=== PATIENT | male | born 1965 | race Caucasian/White ===

== ENCOUNTER 2016-04-12 12:30 | Emergency (ER) | payer MEDICARE ==
[~2016-04-12 12:30] MED LIST: /ESCI10TA PEG; ACET50TA PO; ALEV220C2 PO; AMLO5TAB2 PO; BACT2OIN EX; CEFA500C PO; CIAL2.5T PO; CLON0.5T17 PO; DEXI60CA PO; DOXY-197 PO; ERYT TOP; ESCI10TA2 PO; ESCI20TA PO; FERR325T3 PO; FLUT50SP; GABA100C PO; GABA300C2 PO; HYDROCHLOROT PO; IRONTAB3 PO; LISI40TAB PO; METF500T PO; MINO100T PO; MINO1CAP PO; MORP-38 PO; MORP-39 PO; NEXI20CA PO; OXYC5TAB2 PO; PERCOCET PO; SOMA350T PO; TYLE167L PO; VITA100037 PO; VITA200028 PO; VITACAP31 PO; VITAMIND; ZANA4CAP PO; ZOLP-187 PO; [UNRECOGNIZED DRUG - CODE] EX; [UNRECOGNIZED DRUG - CODE] IM; [UNRECOGNIZED DRUG - CODE] PO; clindamycin PO; lisinopril/hctz PO; ocean spray
--- NOTE | 2016-04-12 13:42 | EDDOCDS ---
Nurse's Notes [facility] Name: Tyler Burnett Age: 50 yrs Sex: Male : 1965 Arrival Date: 04/12/2016 Time: 12:30 Bed TR8 Private MD: Lars Flores Diagnosis: Low back pain Presentation: 04/12 12:33 Presenting complaint: Patient states: low back pain for many years. reports needs meds kr3 that pain clinic no longer gives because of state ruling. Acute neurological deficits are not present. Mechanism of Injury: No Mechanism of Injury. Adult Sepsis Screening: The patient does not have new or worsening altered mentation. Patient's respiratory rate is less than 22. Systolic blood pressure is greater than 100. Patient has a qSOFA score of 0- Negative Sepsis Screen. Suicide/Homicide risk assessment- the patient denies having any suicidal and/or homicidal ideations and does not present with any other emotional, behavioral or mental health complaints. Status: Patient is not a neighborhood service center director or dependent. Transition of care: patient was not received from another setting of care. 12:33 Acuity: ALICIA Level 4 kr3 12:33 Method Of Arrival: Walkin/Carried/Asstd kr3 Triage Assessment: 12:38 General: Appears in no apparent distress, comfortable, Behavior is appropriate for age, kr3 cooperative. Pain: Location: low back area Pain currently is 7 out of 10 on a pain scale. HIV screening NA for this visit Offered previously. Neurological: No deficits noted. Respiratory: Respiratory effort is even, unlabored. Derm: Skin is normal. Musculoskeletal: Range of motion intact in all extremities. Historical: - Allergies: PENICILLINS; - Home Meds: 1. escitalopram oxalate 20 mg oral tab 1 tab once daily 2. amlodipine 5 mg Oral tab 1 tab once daily 3. lisinopril-hydrochlorothiazide 20-25 mg oral tab once daily 4. Nexium Oral 2 times per day 5. iron supplement daily 6. testosterone cypionate intramuscular 2000mg intramuscular every 10 days - PMHx: Chronic Back pain; Hypertension; Humphrey's Esophagus; - PSHx: Carpal Tunnel Repair- Bilateral; septoplasty; - Social history: Smoking status: Patient states was never smoker of tobacco. No barriers to communication noted, The patient speaks fluent Mongolian, Speaks appropriately for age. - Family history: Not pertinent. - : The pt / caregiver states he / she is not on anticoagulants. Home medication list is obtained from the patient. - Exposure Risk Screening:: None identified. Screenin:30 Screening information is obtained from the patient. Fall risk: No risks identified. js13 Assistance ADL's: requires no assistance with activities of daily living. Abuse/DV Screen: The patient / caregiver reports he/she is: not in a situation that causes fear, pain or injury. Nutritional screening: No deficits noted. Advance Directives: There is no active DNR order. home support is adequate. Assessment: 13:40 General: Appears in no apparent distress, Behavior is appropriate for age, cooperative. ml6 Pain: Denies pain. Pain: Location: low back area Pain currently is 5 out of 10 on a pain scale. Pain does not radiate. Quality of pain is described as aching, Pain began 2-3 days ago Is continuous Alleviated by nothing. Aggravated by increased activity. Neurological: Level of Consciousness is awake, alert, Oriented to person, place, time. Neurological: No deficits noted. Level of Consciousness is awake, alert, Oriented to person, place, time. Cardiovascular: No deficits noted. Respiratory: No deficits noted. GI: No deficits noted. Vital Signs: 12:32 BP 178 / 96; Pulse 88; Resp 16; Temp 98.2; Pulse Ox 100% ; Weight 104.33 kg; Height 5 elp ft. 9 in. (175.26 cm); Pain 7/10; 13:41 BP 166 / 87; Pulse 82; Resp 18; Pulse Ox 98% on R/A; Pain 4/10; ml6 12:32 Body Mass Index 33.96 (104.33 kg, 175.26 cm) [facility] Vitals: 12:32 Log In Time: April 12, 2016 at 12:30. [facility] ED Course: 12:31 Patient visited by Yany Seay PCA. elp 12:31 Patient moved to Waiting elp 12:32 Lars Flores MD is Private Physician. elp 12:32 Patient visited by Yany Seay PCA. elp 12:32 Patient moved to Pre RCE elp 12:34 Triage Initiated kr3 13:02 Patient moved to Triage 3 js13 13:09 Marlon Torres [facility]. btw 13:10 Italia Choi MD is Attending Physician. btw 13:10 Patient visited by Marlon Torres PA. btw 13:30 The patient / caregiver is instructed regarding the plan of care and ED course. js13 13:30 No IV's were initiated during this patient's visit. No procedures done that require js13 assistance. 13:31 Lars Flores MD is Referral Physician. btw 13:39 Patient moved to [place] [id number] 13:40 [facility] Payment Agreement was scanned into [employer] and attached to record. mpb Order Results: There are currently no results for this order. Outcome: 13:31 Discharge ordered by Provider. btw 13:41 Discharge Assessment: patient administered narcotics - no. The following High Risk 6 Discharge criteria are identified: None. Discharged to home ambulatory. Condition: stable. Discharge instructions given to patient, Instructed on discharge instructions, follow up and referral plans. medication usage, Demonstrated understanding of instructions, medications, Pt was receptive of discharge instructions/ teaching. Prescriptions given X 2. No special radiology studies were completed. Property sent home with patient. :Personal belongings accompany Pt. 13:41 Patient left the ED. ml6 Signatures: Felicia Alicia,RN RN kr3 Angelo Serna RN RN ml6 Marlon Torres PA PA btw Di Lopez,RN RN js13 Yany Seay, MACHINE FILLER SHREDDER MACHINE FILLER SHREDDER Michael Hammond, Reg Reg mpb MTDD
--- NOTE | 2016-04-12 13:42 | EDDOCDS ---
Physician Documentation [facility] Name: Tyler Burnett Age: 50 yrs Sex: Male : 1965 Arrival Date: 04/12/2016 Time: 12:30 Bed TR8 Private MD: Lars Flores Disposition: 04/12/16 13:31 Discharged to Home/Self Care. Impression: Low back pain. - Condition is Stable. - Discharge Instructions: Chronic Back Pain, Back Pain, Adult, [id number]. - Prescriptions for Medrol (Simon) 4 mg Oral Tablets, Dose Pack - take 1 Pack by ORAL route as directed - follow package instructions; 1 packet. Robaxin- 750 750 mg Oral Tablet - take 1 tablet by ORAL route every 6 hours As needed; 40 tablet. - Medication Reconciliation, Local Pharmacy Hours form. - Follow up: Lars Flores MD; When: Call to arrange an appointment; Reason: Further diagnostic work-up, Recheck today's complaints, Continuance of care. - Problem is an acute exacerbation. - Symptoms are unchanged. Historical: - Allergies: PENICILLINS; - Home Meds: 1. escitalopram oxalate 20 mg oral tab 1 tab once daily 2. amlodipine 5 mg Oral tab 1 tab once daily 3. lisinopril-hydrochlorothiazide 20-25 mg oral tab once daily 4. Nexium Oral 2 times per day 5. iron supplement daily 6. testosterone cypionate intramuscular 2000mg intramuscular every 10 days - PMHx: Chronic Back pain; Hypertension; Humphrey's Esophagus; - PSHx: Carpal Tunnel Repair- Bilateral; septoplasty; - Social history: Smoking status: Patient states was never smoker of tobacco. No barriers to communication noted, The patient speaks fluent Albanian, Speaks appropriately for age. - Family history: Not pertinent. - : The pt / caregiver states he / she is not on anticoagulants. Home medication list is obtained from the patient. - Exposure Risk Screening:: None identified. Vital Signs: 04/12 12:32 BP 178 / 96; Pulse 88; Resp 16; Temp 98.2; Pulse Ox 100% ; Weight 104.33 kg / 230.01 elp lbs; Height 5 ft. 9 in. (175.26 cm); Pain 7/10; 13:41 BP 166 / 87; Pulse 82; Resp 18; Pulse Ox 98% on R/A; Pain 4/10; ml6 12:32 Body Mass Index 33.96 (104.33 kg, 175.26 cm) elp MDM: 13:40 Financial registration complete. mpb 13:40 [facility] Payment Agreement was scanned into [employer] and attached to record. mpb Signatures: Felicia Alicia,RN RN kr3 Angelo Serna RN RN ml6 Marlon Torres PA PA btw Sullivan, JenniferRN RN js13 Michael Thomas, Hilton Reg mpb The chart was reviewed and I authenticate all verbal orders and agree with the evaluation and treatment provided.Attachments: 13:40 [facility] Payment Agreement mpb MTDD
--- NOTE | 2016-04-14 14:43 | EDDOCDS ---
Physician Documentation [facility] Name: Tyler Burnett Age: 50 yrs Sex: Male : 1965 Arrival Date: 04/12/2016 Time: 12:30 Bed TR8 Private MD: Lars Flores Disposition: 04/12/16 13:31 Discharged to Home/Self Care. Impression: Low back pain. - Condition is Stable. - Discharge Instructions: Chronic Back Pain, Back Pain, Adult, [id number]. - Prescriptions for Medrol (Simon) 4 mg Oral Tablets, Dose Pack - take 1 Pack by ORAL route as directed - follow package instructions; 1 packet. Robaxin- 750 750 mg Oral Tablet - take 1 tablet by ORAL route every 6 hours As needed; 40 tablet. - Medication Reconciliation, Local Pharmacy Hours form. - Follow up: Lars Flores MD; When: Call to arrange an appointment; Reason: Further diagnostic work-up, Recheck today's complaints, Continuance of care. - Problem is an acute exacerbation. - Symptoms are unchanged. Historical: - Allergies: PENICILLINS; - Home Meds: 1. escitalopram oxalate 20 mg oral tab 1 tab once daily 2. amlodipine 5 mg Oral tab 1 tab once daily 3. lisinopril-hydrochlorothiazide 20-25 mg oral tab once daily 4. Nexium Oral 2 times per day 5. iron supplement daily 6. testosterone cypionate intramuscular 2000mg intramuscular every 10 days - PMHx: Chronic Back pain; Hypertension; Humphrey's Esophagus; - PSHx: Carpal Tunnel Repair- Bilateral; septoplasty; - Social history: Smoking status: Patient states was never smoker of tobacco. No barriers to communication noted, The patient speaks fluent Mongolian, Speaks appropriately for age. - Family history: Not pertinent. - : The pt / caregiver states he / she is not on anticoagulants. Home medication list is obtained from the patient. - Exposure Risk Screening:: None identified. Vital Signs: 04/12 12:32 BP 178 / 96; Pulse 88; Resp 16; Temp 98.2; Pulse Ox 100% ; Weight 104.33 kg / 230.01 elp lbs; Height 5 ft. 9 in. (175.26 cm); Pain 7/10; 13:41 BP 166 / 87; Pulse 82; Resp 18; Pulse Ox 98% on R/A; Pain 4/10; ml6 12:32 Body Mass Index 33.96 (104.33 kg, 175.26 cm) elp MDM: 13:40 Financial registration complete. mpb 13:40 [facility] Payment Agreement was scanned into [employer] and attached to record. mpb 21:14 T-Sheet-- Draft Copy was scanned into [employer] and attached to record. klr Signatures: Felicia Alicia,RN RN kr3 Angelo Serna RN RN ml6 Marlon Torres PA PA suryaw Di Lopez,RN RN js13 Michael Thomas, Reg Reg mpb Sapphire Woody klr The chart was reviewed and I authenticate all verbal orders and agree with the evaluation and treatment provided.Attachments: 13:40 [facility] Payment Agreement mpb 21:14 T-Sheet-- Draft Copy klr Chart Complete MTDD
--- NOTE | 2016-04-14 14:43 | EDDOCDS ---
Nurse's Notes [facility] Name: Tyler Burnett Age: 50 yrs Sex: Male : 1965 Arrival Date: 04/12/2016 Time: 12:30 Bed TR8 Private MD: Lars Flores Diagnosis: Low back pain Presentation: 04/12 12:33 Presenting complaint: Patient states: low back pain for many years. reports needs meds kr3 that pain clinic no longer gives because of state ruling. Acute neurological deficits are not present. Mechanism of Injury: No Mechanism of Injury. Adult Sepsis Screening: The patient does not have new or worsening altered mentation. Patient's respiratory rate is less than 22. Systolic blood pressure is greater than 100. Patient has a qSOFA score of 0- Negative Sepsis Screen. Suicide/Homicide risk assessment- the patient denies having any suicidal and/or homicidal ideations and does not present with any other emotional, behavioral or mental health complaints. Status: Patient is not a clerk telegraph service or dependent. Transition of care: patient was not received from another setting of care. 12:33 Acuity: ALICIA Level 4 kr3 12:33 Method Of Arrival: Walkin/Carried/Asstd kr3 Triage Assessment: 12:38 General: Appears in no apparent distress, comfortable, Behavior is appropriate for age, kr3 cooperative. Pain: Location: low back area Pain currently is 7 out of 10 on a pain scale. HIV screening NA for this visit Offered previously. Neurological: No deficits noted. Respiratory: Respiratory effort is even, unlabored. Derm: Skin is normal. Musculoskeletal: Range of motion intact in all extremities. Historical: - Allergies: PENICILLINS; - Home Meds: 1. escitalopram oxalate 20 mg oral tab 1 tab once daily 2. amlodipine 5 mg Oral tab 1 tab once daily 3. lisinopril-hydrochlorothiazide 20-25 mg oral tab once daily 4. Nexium Oral 2 times per day 5. iron supplement daily 6. testosterone cypionate intramuscular 2000mg intramuscular every 10 days - PMHx: Chronic Back pain; Hypertension; Humphrey's Esophagus; - PSHx: Carpal Tunnel Repair- Bilateral; septoplasty; - Social history: Smoking status: Patient states was never smoker of tobacco. No barriers to communication noted, The patient speaks fluent Khmer, Speaks appropriately for age. - Family history: Not pertinent. - : The pt / caregiver states he / she is not on anticoagulants. Home medication list is obtained from the patient. - Exposure Risk Screening:: None identified. Screenin:30 Screening information is obtained from the patient. Fall risk: No risks identified. js13 Assistance ADL's: requires no assistance with activities of daily living. Abuse/DV Screen: The patient / caregiver reports he/she is: not in a situation that causes fear, pain or injury. Nutritional screening: No deficits noted. Advance Directives: There is no active DNR order. home support is adequate. Assessment: 13:40 General: Appears in no apparent distress, Behavior is appropriate for age, cooperative. ml6 Pain: Denies pain. Pain: Location: low back area Pain currently is 5 out of 10 on a pain scale. Pain does not radiate. Quality of pain is described as aching, Pain began 2-3 days ago Is continuous Alleviated by nothing. Aggravated by increased activity. Neurological: Level of Consciousness is awake, alert, Oriented to person, place, time. Neurological: No deficits noted. Level of Consciousness is awake, alert, Oriented to person, place, time. Cardiovascular: No deficits noted. Respiratory: No deficits noted. GI: No deficits noted. Vital Signs: 12:32 BP 178 / 96; Pulse 88; Resp 16; Temp 98.2; Pulse Ox 100% ; Weight 104.33 kg; Height 5 elp ft. 9 in. (175.26 cm); Pain 7/10; 13:41 BP 166 / 87; Pulse 82; Resp 18; Pulse Ox 98% on R/A; Pain 4/10; ml6 12:32 Body Mass Index 33.96 (104.33 kg, 175.26 cm) [facility] Vitals: 12:32 Log In Time: April 12, 2016 at 12:30. [facility] ED Course: 12:31 Patient visited by Yany Seay PCA. elp 12:31 Patient moved to Waiting elp 12:32 Lars Flores MD is Private Physician. elp 12:32 Patient visited by Yany Seay PCA. elp 12:32 Patient moved to Pre RCE elp 12:34 Triage Initiated kr3 13:02 Patient moved to Triage 3 js13 13:09 [facility]. btw 13:10 Italia Choi MD is Attending Physician. btw 13:10 Patient visited by Marlon Torres PA. btw 13:30 The patient / caregiver is instructed regarding the plan of care and ED course. js13 13:30 No IV's were initiated during this patient's visit. No procedures done that require js13 assistance. 13:31 Lars Flores MD is Referral Physician. btw 13:39 Patient moved to [place] [id number] 13:40 [facility] Payment Agreement was scanned into [employer] and attached to record. mpb 21:14 T-Sheet-- Draft Copy was scanned into [employer] and attached to record. klr Order Results: There are currently no results for this order. Outcome: 13:31 Discharge ordered by Provider. btw 13:41 Discharge Assessment: patient administered narcotics - no. The following High Risk 6 Discharge criteria are identified: None. Discharged to home ambulatory. Condition: stable. Discharge instructions given to patient, Instructed on discharge instructions, follow up and referral plans. medication usage, Demonstrated understanding of instructions, medications, Pt was receptive of discharge instructions/ teaching. Prescriptions given X 2. No special radiology studies were completed. Property sent home with patient. :Personal belongings accompany Pt. 13:41 Patient left the ED. ml6 Signatures: Felicia Alicia,RN RN johnna3 Angelo Serna, RN RN ml6 Marlon Torres PA PA btDi Montoya,RN RN js13 Yany Seay, INTELLIGENT SYSTEMS ENGINEER INTELLIGENT SYSTEMS ENGINEER elp Michael Thomas, Reg Reg mpSapphire Varela klr Chart Complete MTDD
--- NOTE | 2016-04-14 14:43 | EDDOCDS ---
Physician Documentation [facility] Name: Tyler Burnett Age: 50 yrs Sex: Male : 1965 Arrival Date: 04/12/2016 Time: 12:30 Bed TR8 Private MD: Lars Flores Disposition: 04/12/16 13:31 Discharged to Home/Self Care. Impression: Low back pain. - Condition is Stable. - Discharge Instructions: Chronic Back Pain, Back Pain, Adult, [id number]. - Prescriptions for Medrol (Simon) 4 mg Oral Tablets, Dose Pack - take 1 Pack by ORAL route as directed - follow package instructions; 1 packet. Robaxin- 750 750 mg Oral Tablet - take 1 tablet by ORAL route every 6 hours As needed; 40 tablet. - Medication Reconciliation, Local Pharmacy Hours form. - Follow up: Lars Flores MD; When: Call to arrange an appointment; Reason: Further diagnostic work-up, Recheck today's complaints, Continuance of care. - Problem is an acute exacerbation. - Symptoms are unchanged. Historical: - Allergies: PENICILLINS; - Home Meds: 1. escitalopram oxalate 20 mg oral tab 1 tab once daily 2. amlodipine 5 mg Oral tab 1 tab once daily 3. lisinopril-hydrochlorothiazide 20-25 mg oral tab once daily 4. Nexium Oral 2 times per day 5. iron supplement daily 6. testosterone cypionate intramuscular 2000mg intramuscular every 10 days - PMHx: Chronic Back pain; Hypertension; Humphrey's Esophagus; - PSHx: Carpal Tunnel Repair- Bilateral; septoplasty; - Social history: Smoking status: Patient states was never smoker of tobacco. No barriers to communication noted, The patient speaks fluent Korean, Speaks appropriately for age. - Family history: Not pertinent. - : The pt / caregiver states he / she is not on anticoagulants. Home medication list is obtained from the patient. - Exposure Risk Screening:: None identified. Vital Signs: 04/12 12:32 BP 178 / 96; Pulse 88; Resp 16; Temp 98.2; Pulse Ox 100% ; Weight 104.33 kg / 230.01 elp lbs; Height 5 ft. 9 in. (175.26 cm); Pain 7/10; 13:41 BP 166 / 87; Pulse 82; Resp 18; Pulse Ox 98% on R/A; Pain 4/10; ml6 12:32 Body Mass Index 33.96 (104.33 kg, 175.26 cm) elp MDM: 13:40 Financial registration complete. mpb 13:40 [facility] Payment Agreement was scanned into [employer] and attached to record. mpb 21:14 T-Sheet-- Draft Copy was scanned into [employer] and attached to record. klr Signatures: Felicia Alicia,RN RN kr3 Angelo Serna RN RN ml6 Marlon Torres PA PA suryaw Di Lopez,RN RN js13 Micheal Thomas, Reg Reg mpb Sapphire Woody klr The chart was reviewed and I authenticate all verbal orders and agree with the evaluation and treatment provided.Attachments: 13:40 [facility] Payment Agreement mpb 21:14 T-Sheet-- Draft Copy klr Chart Complete MTDD
== END 2016-04-12 13:41 | disposition home or self-care (01) ==
LOC: M ED 12:30
DX: M54.5 Low back pain (principal); I10 Essential (primary) hypertension; K22.70 Barrett's esophagus without dysplasia; Z79.899 Other long term (current) drug therapy; Z88.0 Allergy status to penicillin

== ENCOUNTER → 2016-04-14 | Outpatient (CLI) | payer MEDICARE ==
[~2016-04-14] MED LIST changes: +BUPIVACAINE HCL 0.25% 30 ML VIAL As Ordered ONE; +ISOVUE-M 300 61% 15ML VIAL (Q9967) As Ordered ONE; +LIDOCAINE 1% SDV INJ 30 ML VIAL As Ordered ONE; +TRIAMCINOLONE ACETONIDE SUSP 40 MG/ML VIAL (J3301) As Ordered ONE; +diazePAM 5 MG TAB As Ordered ONE
--- NOTE | 2016-04-15 08:46 | REP ---
Cervical spine series: Three views. History: Cervicothoracic facet block for pain. 8 seconds of fluoroscopy time is reported. Findings: A sequence of three fluoroscopically obtained intraprocedural spot radiographs of the cervical spine document various needle positions and contrast injections associated with cervical facet injection procedure. Signed by Kamran Kirk MD 04/15/2016 10:39 A
--- NOTE | 2016-04-18 01:25 | ECWPNPC ---
PATIENT NAME: KIMBERLEY VALENCIA : 1965 GENDER: MALE VISIT DATE: 04/14/2016 DISCHARGE DATE: 04/14/16843 VISIT LOCKED DATE TIME: PHYSICIAN: OMA POWELL PHYSICIAN PAGER NO: TEXT TO [phone] RESOURCE: OMA POWELL REASON FOR APPOINTMENT 1. CERVICAL THERAPEUTIC FACET HISTORY OF PRESENT ILLNESS HISTORY OF PRESENT ILLNESS: PAIN THE PATIENT DESCRIBES THE PAIN... FALL RISK SCREENING: SCREENING :NO FALLS IN THE PAST YEAR CURRENT MEDICATIONS TAKING ARTIFICIAL TEARS 0.4 % SOLUTION 1 DROP INTO AFFECTED EYE NEEDED OPHTHALMIC ONCE A DAY, NOTES: 04/14/16 1500 TAKING NEXIUM 24HR 20 MG CAPSULE DELAYED RELEASE 1 CAPSULE ORALLY ONCE A DAY, NOTES: 04/14/16 0800 TAKING TESTOSTERONE CYPIONATE 200 MG/ML OIL 0.8 ML INTRAMUSCULAR(DR KIERRA ELMORE) EVERY 10 DAYS, NOTES: 04/12/16 TAKING VITAMIN D 2000 UNIT CAPSULE 1 CAPSULE ORALLY DAILY, NOTES: 04/13/16 1700 TAKING FERROUS SULFATE 325 (65 FE) MG TABLET 1 TABLET ORALLY ONCE A DAY, NOTES: 04/14/16 0800 TAKING AMLODIPINE BESYLATE 5 MG TABLET 1 TABLET ORALLY ONCE A DAY, NOTES: 04/14/16 08 TAKING DESHAWN ALLERGY 60 MG TABLET 1 TABLET NEEDED ORALLY ONCE A DAY, NOTES: 04/13/16 TAKING LEXAPRO 20 MG TABLET 1 TAB ORALLY ONCE A DAY, NOTES: 04/13/16 1700 TAKING CLONAZEPAM 0.5 MG TABLET DISPERSIBLE 1-2 TABLET ON THE TONGUE AND ALLOW TO DISSOLVE ORALLY AT BEDTIME NEEDED FOR INSOMNIA AND RESTLESS LEGS MDD:2, NOTES: 04/12/16 TAKING LISINOPRIL-HYDROCHLOROTHIAZIDE 20-25 MG TABLET 1 TABLET ORALLY ONCE A DAY, NOTES: 04/14/16 0800 TAKING GABAPENTIN 300 MG CAPSULE 1 CAPSULE ORALLY TWICE DAILY, NOTES: 04/13/16 1700 DISCONTINUED FEXOFENADINE-PSEUDOEPHED ER 180-240 MG TABLET EXTENDED RELEASE 24 HOUR 1 TABLET ORALLY ONCE A DAY MEDICATION LIST REVIEWED AND RECONCILED WITH THE PATIENT PAST MEDICAL HISTORY BACK PAIN - EPIDURAL INJECTIONS EVERY 7-9 WEEKS ([facility]) BARRETS ESOPHAGUS HYPERTENSION SLEEP APNEA [place] WITH CPAP (PULM ASSOC) HYPOTESTOSTERONEMIA (Jermaine ELMORE) MAJOR DEPRESSION, SINGLE EPISODE (MANISH) ANXIETY OA (MULTIPLE LOCATIONS) IFG A1C 01/16 6.0 ALLERGIES PENICILLIN (FOR ALLERGIES USE ONLY): FEET SWELLS: ALLERGY SOCIAL HISTORY GENERAL: TOBACCO USE ARE YOU A:NONSMOKER LEARNING BARRIERS / SPECIAL NEEDS ORIENTED TO PLAN OF CARE: PATIENT, PAIN MANAGEMENT PATIENT, ORIENTED TO PLAN OF CARE: PATIENT, PAIN MANAGEMENT PATIENT. NEW PATIENT PAIN DIARY TODAY'S VISITNOTES FROM 0-10, WHAT LEVEL IS YOUR PAIN TODAY?0 PAIN CLINIC PFS, CLERGY, PUBLIC HEALTH REFERRALS PFS REFERRAL NEEDED?NO CLERGY REFERRAL NEEDED?NO PUBLIC HEALTH REFERRAL NEEDED?NO WAS THE PROVIDER NOTIFIED OF ANY PERTINENT INFO?NO PFS REFERRAL NEEDED?NO CLERGY REFERRAL NEEDED?NO PUBLIC HEALTH REFERRAL NEEDED?NO WAS THE PROVIDER NOTIFIED OF ANY PERTINENT INFO?NO REVIEW OF SYSTEMS CONSTITUTIONAL: ANY CHANGE IN YOUR MEDICAL CONDITION? NO . CHILLS NO . FEVER NO . INFECTION: DO YOU HAVE NEW INFECTIONS? NO . DO YOU HAVE HISTORY OF MRSA? NO . MUSCULOSKELETAL: ANY NEW PATTERNS OF PAIN OR NUMBNESS? NO . GASTROENTEROLOGY: ANY NEW CHANGE IN BOWEL CONTROL? YES PT NOTES SENSATION THAT HE NEEDS TO MOVE HIS BOWELS FREQUENTLY WITH NO BM. . GENITOURINARY: ANY NEW CHANGE IN BLADDER CONTROL? NO . IS THERE A CHANCE YOU COULD BE ? NO . HEMATOLOGY/LYMPH: DO YOU TAKE ANY BLOOD THINNERS? (FOR EXAMPLE- COUMADIN, PLAVIX, AGGRENOX, PLATEL, PRADAXA, OR XARELTO) NO . WHEN WAS YOUR LAST DOSE? DATE: TIME: . NEUROLOGY: HAVE YOU FALLEN IN THE PAST 6 MONTHS? NO . ANY NEW EXTREMITY NUMBNESS OR WEAKNESS? NO . CARDIOLOGY: DO YOU HAVE A PACEMAKER OR DEFIBRILLATOR? NO . RESPIRATORY: HAVE YOU BEEN SICK IN THE PAST WEEK? NO . FEVER NO . FLU LIKE SYMPTOMS? NO . COUGH NO . INTEGUMENTARY: DO YOU HAVE ANY RASHES OR OPEN SORES? NO . ALLERGIC/IMMUNO: ARE YOU ALLERGIC TO SHELLFISH OR IV DYE? NO . ANY NEW ALLERGIES? NO . PSYCHIATRIC: DO YOU HAVE THOUGHTS OF HURTING YOURSELF OR SOMEONE ELSE? NO . ARE YOU ABUSED, NEGLECTED, OR IN AN UNSAFE ENVIRONMENT? NO . ENDOCRINOLOGY: ARE YOU DIABETIC? NO . OTHER: DO YOU NEED ANY PRESCRIPTIONS? NO . IF YES, PLEASE LIST: ____ . ANY NEW PROBLEMS WITH YOUR MEDICATIONS? NO . WHEN DID YOU LAST EAT? ____1/10/17 0600 . WHEN DID YOU LAST DRINK? ____04/14/16 0800 . WHAT DID YOU LAST DRINK? ____COFFEE . NAME OF PERSON DRIVING YOU HOME? ____GREG . DO YOU HAVE ANY OTHER QUESTIONS OR CONCERNS YES PAIN MED UNTIL PROCEDURE MONDAY 04/17 . REVIEWED BY: PROVIDER: . VITAL SIGNS WT 230 LBS, HT 68 IN, BMI 34.97 INDEX, BP 151/96 MM HG, HR 86 /MIN, RR 18 /MIN, TEMP 96.0 F, OXYGEN SAT % 97%, NA INITIALS SC 14:56, REVIEWED BY: MLF. ASSESSMENTS SPONDYLOSIS WITHOUT MYELOPATHY OR RADICULOPATHY, CERVICAL REGION - M47.812 (PRIMARY) PROCEDURES PN CERVICAL FACET BLOCK HIGH LATERAL CERVICAL PRE PROCEDURE DIAGNOSIS CERVICAL SPONDYLOSIS POST PROCEDURE DIAGNOSIS CERVICAL SPONDYLOSIS PROCEDURE LEFT C4-C5, LEFT C5-C6, AND LEFT C6-C7 FACET BLOCK SURGEON DR. 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 I EVALUATE THE PATIENT AND REVIEWED THE CHART. I WENT OVER THE RISKS, ALTERNATIVES, AND BENEFITS ASSOCIATED WITH THIS PROCEDURE. THE PATIENT WOULD LIKE TO PROCEED AND GIVE CONSENT TO PERFORMED THE PROCEDURE. THE PATIENT DENIES UNEXPLAINABLE WEIGHT LOSS, FEVER, CHILLS, OR NEW CHANGES IN URINARY OR BOWEL CONTROL., . DESCRIPTION OF PROCEDURE THE PATIENT WAS BROUGHT TO THE PROCEDURE ROOM AND PLACED IN THE [] LATERAL DECUBITUS POSITION. THE CERVICAL AREA WAS CLEANED WITH CHLORAPREP SOLUTION AND DRAPED ASEPTICALLY. THE PROCEDURE WAS DONE UNDER STERILE CONDITIONS. I CHECKED LATERALITY AND THE LEVEL WHERE THE PROCEDURE WAS GOING TO BE PERFORMED WITH THE PATIENT AND THE SUPPORTING STAFF AT THE MOMENT OF THE TIME OUT IN THE PROCEDURE ROOM. UNDER FLUOROSCOPIC GUIDANCE, TARGET POINT WAS SELECTED AT THE LEFT C4-C5, LEFT C5-C6, AND LEFT C6-C7 FACET. TARGET POINTS WERE SELECTED AFTER LATERAL ROTATION AND TILT OF THE MAGNIFIER OF THE C-ARM. LIDOCAINE 0.5% WAS USED TO NUMB THE SKIN AND THE SUBCUTANEOUS TISSUE BELOW IT. SPINAL NEEDLES, 22-GAUGE, WERE ADVANCED UNDER FLUOROSCOPIC GUIDANCE AND FOLLOWING PATIENT FEEDBACK UNTIL THE TARGETS WERE TOUCHED. THE POSITION OF THE NEEDLES WAS VERIFIED WITH AP AND LATERAL VIEWS. AFTER PROPER POSITION OF THE NEEDLES WAS ACHIEVED, ISOVUE M DYE 30, 0.1 ML WAS INJECTED SHOWING SPREAD OF THE DYE. THEN A SOLUTION OF 0.9 ML OF BUPIVACAINE 0.125% AND KENALOG [10] MG WAS INJECTED AT EACH SITE. THERE WAS NO EVIDENCE OF BLOOD, PARESTHESIA OR CEREBROSPINAL FLUID DURING THE PROCEDURE. THE PATIENT WAS SENT TO THE RECOVERY ROOM. THE PATIENT WAS MOVING THE EXTREMITIES AND DOING WELL. THERE WAS NO COMPLICATION DURING THE PROCEDURE. FLUOROSCOPY TIME WAS 8 SECONDS POST PROCEDURE NOTE THE PATIENT WILL BE SEEN IN A FOLLOW UP IN THE NEXT FEW WEEKS. INSTRUCTIONS WERE GIVEN, QUESTIONS WERE ANSWERED, AND THE PATIENT EXPRESSED UNDERSTANDING AND AGREED WITH THE PLAN DIAGNOSTIC IMAGING [facility] FACET BLOCK (PAIN)[id number] PROCEDURE CODES 59330 INJ PARAVERT F JNT C/T 1 LEV 26303 INJ PARAVERT F JNT C/T 2 LEV 83962 INJ PARAVERT F JNT C/T 3 LEV 6045F RADXPS IN END [id number] PXD FOLLOW UP 3 WEEKS ELECTRONICALLY SIGNED BY OMA POWELL MD ON 04/17/2016 AT 06:02 PM EST DISCLAIMER : THIS IS A VISIT SUMMARY EXTRACTED FROM THE [employer] CHART. IT IS NOT A COPY OF THE [employer] PROGRESS NOTE. MTDD
== END ==
LOC: M PAIN 14:00
PROVIDERS: ATTEND Anesthesiology
DX: G89.29 Other chronic pain (principal); M47.812 Spondylosis without myelopathy or radiculopathy, cervical region; Z79.899 Other long term (current) drug therapy; Z88.0 Allergy status to penicillin
CPT/HCPCS: 64490; 64491; 64492; J3301; Q9967

== ENCOUNTER → 2016-04-17 | Outpatient (CLI) | payer MEDICARE ==
[~2016-04-17] MED LIST changes: -diazePAM 5 MG TAB As Ordered ONE
--- NOTE | 2016-04-17 12:02 | REP ---
Partial lumbar spine series: Two views. History: Bilateral lumbar facet injection for pain. 16 seconds of fluoroscopy time is reported. Findings: A sequence of two fluoroscopically obtained intraprocedural spot radiographs of the lumbar spine document needle position and contrast injection associated with lumbar facet injection procedure. Signed by Kamran Kirk MD 04/17/2016 01:43 P
--- NOTE | 2016-04-17 23:33 | ECWPNPC ---
PATIENT NAME: KIMBERLEY VALENCIA : 1965 GENDER: MALE VISIT DATE: 04/17/2016 DISCHARGE DATE: 04/17/16 1024 VISIT LOCKED DATE TIME: PHYSICIAN: OMA POWELL PHYSICIAN PAGER NO: TEXT TO [phone] RESOURCE: OMA POWELL REASON FOR APPOINTMENT 1. LFBT HISTORY OF PRESENT ILLNESS HISTORY OF PRESENT ILLNESS: PAIN THE PATIENT DESCRIBES THE PAIN... FALL RISK SCREENING: SCREENING :NO FALLS IN THE PAST YEAR CURRENT MEDICATIONS TAKING ARTIFICIAL TEARS 0.4 % SOLUTION 1 DROP INTO AFFECTED EYE NEEDED OPHTHALMIC ONCE A DAY, NOTES: 04/16 8PM TAKING NEXIUM 24HR 20 MG CAPSULE DELAYED RELEASE 1 CAPSULE ORALLY ONCE A DAY, NOTES: 04/17 5AM TAKING TESTOSTERONE CYPIONATE 200 MG/ML OIL 0.8 ML INTRAMUSCULAR(DR KIERRA ELMORE) EVERY 10 DAYS, NOTES: 04/12/16 TAKING VITAMIN D 2000 UNIT CAPSULE 1 CAPSULE ORALLY DAILY, NOTES: 04/16 5PM TAKING FERROUS SULFATE 325 (65 FE) MG TABLET 1 TABLET ORALLY ONCE A DAY, NOTES: 04/14 TAKING AMLODIPINE BESYLATE 5 MG TABLET 1 TABLET ORALLY ONCE A DAY, NOTES: 1135AM TAKING DESHAWN ALLERGY 60 MG TABLET 1 TABLET NEEDED ORALLY ONCE A DAY, NOTES: 04/14 6PM TAKING LEXAPRO 20 MG TABLET 1 TAB ORALLY ONCE A DAY, NOTES: 04/10/16 TAKING CLONAZEPAM 0.5 MG TABLET DISPERSIBLE 1-2 TABLET ON THE TONGUE AND ALLOW TO DISSOLVE ORALLY AT BEDTIME NEEDED FOR INSOMNIA AND RESTLESS LEGS MDD:2, NOTES: 04/16 5PM TAKING LISINOPRIL-HYDROCHLOROTHIAZIDE 20-25 MG TABLET 1 TABLET ORALLY ONCE A DAY, NOTES: 04/17 5AM TAKING GABAPENTIN 300 MG CAPSULE 1 CAPSULE ORALLY TWICE DAILY, NOTES: 04/16 5PM MEDICATION LIST REVIEWED AND RECONCILED WITH THE PATIENT PAST MEDICAL HISTORY BACK PAIN - EPIDURAL INJECTIONS EVERY 7-9 WEEKS ([facility]) BARRETS ESOPHAGUS HYPERTENSION SLEEP APNEA TX WITH CPAP (PULM ASSOC) HYPOTESTOSTERONEMIA (Jermaine ELMORE) MAJOR DEPRESSION, SINGLE EPISODE (MANISH) ANXIETY OA (MULTIPLE LOCATIONS) IFG A1C 01/16 6.0 ALLERGIES PENICILLIN (FOR ALLERGIES USE ONLY): FEET SWELLS: ALLERGY SOCIAL HISTORY GENERAL: TOBACCO USE ARE YOU A:NONSMOKER LEARNING BARRIERS / SPECIAL NEEDS ORIENTED TO PLAN OF CARE: PATIENT, PAIN MANAGEMENT PATIENT, ORIENTED TO PLAN OF CARE: PATIENT, PAIN MANAGEMENT PATIENT. NEW PATIENT PAIN DIARY TODAY'S VISITNOTES FROM 0-10, WHAT LEVEL IS YOUR PAIN TODAY?0 PAIN CLINIC PFS, CLERGY, PUBLIC HEALTH REFERRALS PFS REFERRAL NEEDED?NO CLERGY REFERRAL NEEDED?NO PUBLIC HEALTH REFERRAL NEEDED?NO WAS THE PROVIDER NOTIFIED OF ANY PERTINENT INFO?NO PFS REFERRAL NEEDED?NO CLERGY REFERRAL NEEDED?NO PUBLIC HEALTH REFERRAL NEEDED?NO WAS THE PROVIDER NOTIFIED OF ANY PERTINENT INFO?NO REVIEW OF SYSTEMS CONSTITUTIONAL: ANY CHANGE IN YOUR MEDICAL CONDITION? NO . CHILLS NO . FEVER NO . INFECTION: DO YOU HAVE NEW INFECTIONS? NO . DO YOU HAVE HISTORY OF MRSA? NO . MUSCULOSKELETAL: ANY NEW PATTERNS OF PAIN OR NUMBNESS? NO . GASTROENTEROLOGY: ANY NEW CHANGE IN BOWEL CONTROL? NO . GENITOURINARY: ANY NEW CHANGE IN BLADDER CONTROL? NO . IS THERE A CHANCE YOU COULD BE ? NO . HEMATOLOGY/LYMPH: DO YOU TAKE ANY BLOOD THINNERS? (FOR EXAMPLE- COUMADIN, PLAVIX, AGGRENOX, PLATEL, PRADAXA, OR XARELTO) NO . WHEN WAS YOUR LAST DOSE? DATE: TIME: . NEUROLOGY: HAVE YOU FALLEN IN THE PAST 6 MONTHS? NO . ANY NEW EXTREMITY NUMBNESS OR WEAKNESS? NO . CARDIOLOGY: DO YOU HAVE A PACEMAKER OR DEFIBRILLATOR? NO . RESPIRATORY: HAVE YOU BEEN SICK IN THE PAST WEEK? NO . FEVER NO . FLU LIKE SYMPTOMS? NO . COUGH NO . INTEGUMENTARY: DO YOU HAVE ANY RASHES OR OPEN SORES? NO . ALLERGIC/IMMUNO: ARE YOU ALLERGIC TO SHELLFISH OR IV DYE? NO . ANY NEW ALLERGIES? NO . PSYCHIATRIC: DO YOU HAVE THOUGHTS OF HURTING YOURSELF OR SOMEONE ELSE? NO . ARE YOU ABUSED, NEGLECTED, OR IN AN UNSAFE ENVIRONMENT? NO . ENDOCRINOLOGY: ARE YOU DIABETIC? NO . OTHER: DO YOU NEED ANY PRESCRIPTIONS? NO . IF YES, PLEASE LIST: ____ . ANY NEW PROBLEMS WITH YOUR MEDICATIONS? NO . WHEN DID YOU LAST EAT? 112 9PM . WHEN DID YOU LAST DRINK? 04/17 5AM . WHAT DID YOU LAST DRINK? COFFEE - BLACK . NAME OF PERSON DRIVING YOU HOME? LAUREL . DO YOU HAVE ANY OTHER QUESTIONS OR CONCERNS NO . REVIEWED BY: PROVIDER: . VITAL SIGNS WT 230 LBS, HT 68 IN, BMI 34.97 INDEX, BP 172/95 R ARM , REPEAT BP 181/86 L ARM, HR 99 /MIN, RR 16 /MIN, TEMP 97.7 F, OXYGEN SAT % 99, SAFE IN ENV? (Y/N) Y, NA INITIALS TL 0917, REVIEWED BY: MAHENDRA. ASSESSMENTS SPONDYLOSIS WITHOUT MYELOPATHY OR RADICULOPATHY, LUMBAR REGION - M47.816 (PRIMARY) SPONDYLOSIS WITHOUT MYELOPATHY OR RADICULOPATHY, LUMBOSACRAL REGION - M47.817 PROCEDURES PN LUMBAR FACET BLOCK THERAPEUTIC PRE PROCEDURE DIAGNOSIS LUMBAR SPONDYLOSIS, LUMBOSACRAL SPONDYLOSIS POST PROCEDURE DIAGNOSIS LUMBAR SPONDYLOSIS, LUMBOSACRAL SPONDYLOSIS PROCEDURE BILATERAL L4-L5 AND BILATERAL L5-S1 LUMBAR FACET THERAPEUTIC BLOCK SURGEON DR. OMA POWELL WELT ROUGHER NONE ANESTHESIA LOCAL PRE PROCEDURE NOTE THE PATIENT HAS A HISTORY OF CHRONIC LOW BACK PAIN. I EVALUATE THE PATIENT AND REVIEWED THE CHART. I WENT OVER THE RISKS, ALTERNATIVES, AND BENEFITS ASSOCIATED WITH THIS PROCEDURE. THE PATIENT WOULD LIKE TO PROCEED AND GIVE CONSENT TO PERFORMED THE PROCEDURE. THE PATIENT DENIES UNEXPLAINABLE WEIGHT LOSS, FEVER, CHILLS, OR NEW CHANGES IN URINARY OR BOWEL CONTROL DESCRIPTION OF PROCEDURE THE PATIENT WAS BROUGHT TO THE PROCEDURE ROOM AND PLACED IN THE PRONE POSITION. THE LUMBOSACRAL AREA WAS CLEANED WITH CHLORAPREP SOLUTION AND DRAPED ASEPTICALLY. THE PROCEDURE WAS DONE UNDER STERILE CONDITIONS. I CHECKED LATERALITY AND THE LEVEL WHERE THE PROCEDURE WAS GOING TO BE PERFORMED WITH THE PATIENT AND THE SUPPORTING STAFF AT THE MOMENT OF THE TIME OUT IN THE PROCEDURE ROOM. UNDER FLUOROSCOPIC GUIDANCE, THE TARGET POINT WAS SELECTED AT THE RIGHT AND LEFT L4-L5 AND RIGHT AND LEFT L5-S1 FACET JOINT. TARGET POINT WAS SELECTED AFTER LATERAL ROTATION AND TILT OF THE MAGNIFIER OF THE C-ARM. LIDOCAINE 0.5% WAS USED TO NUMB THE SKIN AND THE SUBCUTANEOUS TISSUE BELOW IT. SPINAL NEEDLES, 22-GAUGE, WERE ADVANCED UNDER FLUOROSCOPIC GUIDANCE AND FOLLOWING PATIENT FEEDBACK UNTIL THE TARGETS WERE TOUCHED. THE POSITION OF THE NEEDLES WAS VERIFIED WITH AP AND LATERAL VIEWS. AFTER PROPER POSITION OF THE NEEDLES WAS ACHIEVED, ISOVUE-M DYE 30% 0.1 ML WAS INJECTED SHOWING ADEQUATE SPREAD OF THE DYE. THEN A SOLUTION OF 1.9 ML OF BUPIVACAINE 0.125% OF KENALOG 10 MG WAS INJECTED AT EACH SITE. THERE WAS NO EVIDENCE OF BLOOD, PARESTHESIA OR CEREBROSPINAL FLUID DURING THE PROCEDURE. THE PATIENT WAS SENT TO THE RECOVERY ROOM. THE PATIENT WAS MOVING THE EXTREMITIES AND DOING WELL. THERE WAS NO COMPLICATION DURING THE PROCEDURE. FLUOROSCOPY TIME WAS 16 SECONDS POST PROCEDURE NOTE THE PATIENT WILL BE SEEN IN A FOLLOW UP IN THE NEXT FEW WEEKS. INSTRUCTIONS WERE GIVEN, QUESTIONS WERE ANSWERED, AND THE PATIENT EXPRESSED UNDERSTANDING AND AGREES WITH THE PLAN. I, RANDALL LANTIGUA, DOCUMENTED THE ABOVE INFORMATION ACTING A SCRIBE FOR DR. POWELL. I, DR. POWELL, HAVE REVIEWED THE ABOVE DOCUMENT, SCRIBED BY RANDALL LANTIGUA, AND I VERIFY THAT IT IS ACCURATE DIAGNOSTIC IMAGING [facility] FACET BLOCK (PAIN)[id number] PROCEDURE CODES 22285 INJ PARAVERT F JNT L/S 1 LEV 36474 INJ PARAVERT F JNT L/S 2 LEV 6045F RADXPS IN END [id number] PXD FOLLOW UP 3 WEEKS ELECTRONICALLY SIGNED BY OMA POWELL MD ON 04/17/2016 AT 06:12 PM EST DISCLAIMER : THIS IS A VISIT SUMMARY EXTRACTED FROM THE [employer] CHART. IT IS NOT A COPY OF THE [employer] PROGRESS NOTE. MTDD
== END ==
LOC: M PAIN 09:00
PROVIDERS: ATTEND Anesthesiology
DX: G89.29 Other chronic pain (principal); M47.816 Spondylosis without myelopathy or radiculopathy, lumbar region; M47.817 Spondylosis without myelopathy or radiculopathy, lumbosacral region; I10 Essential (primary) hypertension; K22.70 Barrett's esophagus without dysplasia; G47.30 Sleep apnea, unspecified; E29.1 Testicular hypofunction; F32.9 Major depressive disorder, single episode, unspecified; F41.9 Anxiety disorder, unspecified; M15.0 Primary generalized (osteo)arthritis; R73.01 Impaired fasting glucose; Z88.0 Allergy status to penicillin
CPT/HCPCS: 64493; 64494; J3301; Q9967

== ENCOUNTER → 2016-05-14 | Outpatient (CLI) | payer MEDICARE ==
[~2016-05-14] MED LIST changes: -BUPIVACAINE HCL 0.25% 30 ML VIAL As Ordered ONE; -ISOVUE-M 300 61% 15ML VIAL (Q9967) As Ordered ONE; -LIDOCAINE 1% SDV INJ 30 ML VIAL As Ordered ONE; -TRIAMCINOLONE ACETONIDE SUSP 40 MG/ML VIAL (J3301) As Ordered ONE
--- NOTE | 2016-05-20 00:31 | ECWPNPC ---
PATIENT NAME: KIMBERLEY VALENCIA : 1965 GENDER: MALE VISIT DATE: 05/14/2016 DISCHARGE DATE: 05/14/16 1220 VISIT LOCKED DATE TIME: PHYSICIAN: WILLIAM FREEMAN PHYSICIAN PAGER NO: TEXT JI [phone] RESOURCE: WILLIAM FREEMAN REASON FOR APPOINTMENT 1. NECK/BACK HISTORY OF PRESENT ILLNESS HISTORY OF PRESENT ILLNESS: HERE FOR POST PROCEDURE F/U.HAD LEFT C4-5/C5-6/C6-7 THERAPEUTIC FACET BLOCK 04-14-16.REPORTS 10 DAY IMPROVEMENT IN PAIN POST PROCEDURE THEN PAIN RETURNED TO BASELINE.RATING PAIN VAS 7/10.PAIN IS DESCRIBED ACHING AND PERLA HORSE TYPE PAIN.RATING PAIN VAS 5/10.PAIN AGGREVATED BY STRETCHING.FEELS LIKE HE CANT GET FULL BREATH.HAD BILATERAL LUMBAR THERAPEUTIC FACET BLOCK ON 04-17-16 REPORTING ONLY 3 DAYS IMPROVEMENT POST PROCEDURE.PAIN IS LOCATED ACROSS LOW BACK AND RADIATES TO LEFT LEG.STATES PAIN RADIATES INTO STOMACH.COMPLAINING OF BILATERAL HAND AND KNEE PAIN AND STIFFNESS.REPORTING POOR SLEEP AT NIGHT DUE TO PAIN. FALL RISK SCREENING: SCREENING :NO FALLS IN THE PAST YEAR CURRENT MEDICATIONS TAKING ARTIFICIAL TEARS 0.4 % SOLUTION 1 DROP INTO AFFECTED EYE NEEDED OPHTHALMIC ONCE A DAY TAKING NEXIUM 24HR 20 MG CAPSULE DELAYED RELEASE 1 CAPSULE ORALLY ONCE A DAY TAKING TESTOSTERONE CYPIONATE 200 MG/ML OIL 0.8 ML INTRAMUSCULAR(DR KIERRA ELMORE) EVERY 10 DAYS TAKING VITAMIN D 2000 UNIT CAPSULE 1 CAPSULE ORALLY DAILY TAKING FERROUS SULFATE 325 (65 FE) MG TABLET 1 TABLET ORALLY ONCE A DAY TAKING AMLODIPINE BESYLATE 5 MG TABLET 1 TABLET ORALLY ONCE A DAY TAKING DESHAWN ALLERGY 60 MG TABLET 1 TABLET NEEDED ORALLY ONCE A DAY TAKING CLONAZEPAM 0.5 MG TABLET DISPERSIBLE 1-2 TABLET ON THE TONGUE AND ALLOW TO DISSOLVE ORALLY AT BEDTIME NEEDED FOR INSOMNIA AND RESTLESS LEGS MDD:2 TAKING LISINOPRIL-HYDROCHLOROTHIAZIDE 20-25 MG TABLET 1 TABLET ORALLY ONCE A DAY TAKING GABAPENTIN 300 MG CAPSULE 1 CAPSULE ORALLY TWICE DAILY TAKING LEXAPRO 20 MG TABLET 1 TAB ORALLY ONCE A DAY NEEDED MEDICATION LIST REVIEWED AND RECONCILED WITH THE PATIENT PAST MEDICAL HISTORY BACK PAIN - EPIDURAL INJECTIONS EVERY 7-9 WEEKS ([facility]) BARRETS ESOPHAGUS HYPERTENSION SLEEP APNEA TX WITH CPAP (PULM ASSOC) HYPOTESTOSTERONEMIA (Jermaine ELMORE) MAJOR DEPRESSION, SINGLE EPISODE (MANISH) ANXIETY OA (MULTIPLE LOCATIONS) IFG A1C 01/16 6.0 ALLERGIES PENICILLIN (FOR ALLERGIES USE ONLY): FEET SWELLS: ALLERGY SOCIAL HISTORY GENERAL: TOBACCO USE ARE YOU A:NONSMOKER LEARNING BARRIERS / SPECIAL NEEDS ORIENTED TO PLAN OF CARE: PATIENT, PAIN MANAGEMENT PATIENT, ORIENTED TO PLAN OF CARE: PATIENT, PAIN MANAGEMENT PATIENT. NEW PATIENT PAIN DIARY TODAY'S VISITNOTES FROM 0-10, WHAT LEVEL IS YOUR PAIN TODAY?0 PAIN CLINIC PFS, CLERGY, PUBLIC HEALTH REFERRALS PFS REFERRAL NEEDED?NO CLERGY REFERRAL NEEDED?NO PUBLIC HEALTH REFERRAL NEEDED?NO WAS THE PROVIDER NOTIFIED OF ANY PERTINENT INFO?NO PFS REFERRAL NEEDED?NO CLERGY REFERRAL NEEDED?NO PUBLIC HEALTH REFERRAL NEEDED?NO WAS THE PROVIDER NOTIFIED OF ANY PERTINENT INFO?NO REVIEW OF SYSTEMS CONSTITUTIONAL: ANY CHANGE IN YOUR MEDICAL CONDITION? NO . CHILLS NO . FEVER NO . INFECTION: DO YOU HAVE NEW INFECTIONS? NO . DO YOU HAVE HISTORY OF MRSA? NO . MUSCULOSKELETAL: ANY NEW PATTERNS OF PAIN OR NUMBNESS? NO . GASTROENTEROLOGY: ANY NEW CHANGE IN BOWEL CONTROL? YES, BLOOD IN STOOL . GENITOURINARY: ANY NEW CHANGE IN BLADDER CONTROL? YES, DIFFICULTY URINATING . IS THERE A CHANCE YOU COULD BE ? NO . HEMATOLOGY/LYMPH: DO YOU TAKE ANY BLOOD THINNERS? (FOR EXAMPLE- COUMADIN, PLAVIX, AGGRENOX, PLATEL, PRADAXA, OR XARELTO) NO . WHEN WAS YOUR LAST DOSE? DATE: TIME: . NEUROLOGY: HAVE YOU FALLEN IN THE PAST 6 MONTHS? NO . ANY NEW EXTREMITY NUMBNESS OR WEAKNESS? NO . CARDIOLOGY: DO YOU HAVE A PACEMAKER OR DEFIBRILLATOR? NO . RESPIRATORY: HAVE YOU BEEN SICK IN THE PAST WEEK? NO . FEVER NO . FLU LIKE SYMPTOMS? NO . COUGH NO . INTEGUMENTARY: DO YOU HAVE ANY RASHES OR OPEN SORES? NO . ALLERGIC/IMMUNO: ARE YOU ALLERGIC TO SHELLFISH OR IV DYE? NO . ANY NEW ALLERGIES? NO . PSYCHIATRIC: DO YOU HAVE THOUGHTS OF HURTING YOURSELF OR SOMEONE ELSE? NO . ARE YOU ABUSED, NEGLECTED, OR IN AN UNSAFE ENVIRONMENT? NO . ENDOCRINOLOGY: ARE YOU DIABETIC? NO . OTHER: DO YOU NEED ANY PRESCRIPTIONS? NO . IF YES, PLEASE LIST: ____ . ANY NEW PROBLEMS WITH YOUR MEDICATIONS? NO . WHEN DID YOU LAST EAT? ____ . WHEN DID YOU LAST DRINK? ____ . WHAT DID YOU LAST DRINK? ____ . NAME OF PERSON DRIVING YOU HOME? ____ . DO YOU HAVE ANY OTHER QUESTIONS OR CONCERNS NO . REVIEWED BY: PROVIDER: WILLIAM DYE . VITAL SIGNS WT 218.0 LBS, HT 68 IN, BMI 33.14 INDEX, BP 149/73 MM HG, HR 96 /MIN, RR 18 /MIN, TEMP 96.5 F, OXYGEN SAT % 98, NA INITIALS TL 1126, REVIEWED BY: CSPT WEIGHED ON SCALE- TL. EXAMINATION CERVICAL SPINE/NECK: RANGE OF MOTION OF NECK:NORMAL IN ALL DIRECTIONS. REFLEXES:2 PLUS BILATERALLY. VERTEBRAL SPINE TENDERNESS:TENDER W PALPATION OVER CERVICAL SPINE AND CERVICAL PARASPINALS L>R. MRI [id number]-CERVICAL SPONDYLOSIS C2/3 THROUGH C7/T1. GENERAL EXAMINATION: LUNGS:LUNG SOUNDS ARE CLEAR. HEART:HEART RATE REGULAR. MUSCULOSKELETAL:*,.PALPATION: POSITIVE FOR PAIN OVER L/S SPINE. POSITIVE FOR PAIN OVER L/S PARSPINALS,MUSCLE STRENGTH TESTING 5/5 RLE,3/5 LLE. DIAGNOSTIC:MRI L/S [id number]-[id number]-REVIEWED W PATIENT. MULTI LEVEL LUMBAR DISC PROTRUSIONS W COMPRESION OF LEFT L5 NERVE ROOT.. 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 PATIENT STATES HE HAS TAKEN PERCOCET BEFORE AND DOES NOT REQUEST INFORMATION. PROCEDURE CODES FA211 ESTABILISHED PATIENT [facility] FACILITY CHARGE G8730 PAIN ASSESS POS TOOL F/U PLAN DOC G8427 DOC MEDS VERIFIED W/PT OR RE FOLLOW UP 4 WEEKS ELECTRONICALLY SIGNED BY HARDIK HUSAIN ON 05/19/2016 AT 01:04 PM EST DISCLAIMER : THIS IS A VISIT SUMMARY EXTRACTED FROM THE [employer] CHART. IT IS NOT A COPY OF THE [employer] PROGRESS NOTE. MTDD
== END ==
LOC: M PAIN 10:40
PROVIDERS: ATTEND Nurse Practitioner Family
DX: Z09 Encounter for follow-up examination after completed treatment for conditions other than malignant neoplasm (principal); G89.29 Other chronic pain; M47.12 Other spondylosis with myelopathy, cervical region; M47.26 Other spondylosis with radiculopathy, lumbar region; K22.70 Barrett's esophagus without dysplasia; I10 Essential (primary) hypertension; G47.30 Sleep apnea, unspecified; E29.1 Testicular hypofunction; F32.9 Major depressive disorder, single episode, unspecified; F41.9 Anxiety disorder, unspecified; M19.90 Unspecified osteoarthritis, unspecified site; R73.01 Impaired fasting glucose; Z88.0 Allergy status to penicillin; Z79.899 Other long term (current) drug therapy

== ENCOUNTER → 2016-06-15 | Outpatient (REF) | payer MEDICARE ==
[2016-06-15 12:19] LABS: ALBUMIN 3.6 GM/DL (3.2-5.2); ALBUMIN/GLOBULIN RATIO 1.44 (1.00-1.93); ALKALINE PHOSPHATASE 56 U/L (45-117); ALT/SGPT 34 U/L (12-78); ANION GAP 9 MEQ/L (8-16); AST/SGOT 19 U/L (15-37); BILIRUBIN,TOTAL 0.5 MG/DL (0.2-1.0); BLOOD UREA NITROGEN 10 MG/DL (7-18); CALCIUM LEVEL 8.6 MG/DL (8.5-10.1); CARBON DIOXIDE LEVEL 31 MEQ/L (21-32); CHLORIDE LEVEL 103 MEQ/L (98-107); CHOLESTEROL LEVEL 163 MG/DL (<200); CREATININE FOR GFR 0.84 MG/DL (0.70-1.30); GLOMERULAR FILTRATION RATE > 60.0 (>56); GLUCOSE, FASTING 96 MG/DL (70-105); POTASSIUM SERUM 4.5 MEQ/L (3.5-5.1); SODIUM LEVEL 143 MEQ/L (136-145); TOTAL PROTEIN 6.1 GM/DL (6.4-8.2); TRIGLYCERIDES LEVEL 203 MG/DL (<150)
== END ==
LOC: M SFHCPLAZ 09:09
PROVIDERS: ATTEND Family Medicine
DX: I10 Essential (primary) hypertension (principal); Z68.34 Body mass index [BMI] 34.0-34.9, adult; F41.8 Other specified anxiety disorders

== ENCOUNTER → 2016-06-17 | Outpatient (CLI) | payer MEDICARE ==
--- NOTE | 2016-06-17 23:41 | ECWPNPC ---
PATIENT NAME: KIMBERLEY VALENCIA : 1965 GENDER: MALE VISIT DATE: 06/17/2016 DISCHARGE DATE: 06/17/16 1207 VISIT LOCKED DATE TIME: PHYSICIAN: WILLIAM FREEMAN PHYSICIAN PAGER NO: TEXT [phone] RESOURCE: WILLIAM FREEMAN REASON FOR APPOINTMENT 1. NECK/BACK HISTORY OF PRESENT ILLNESS HISTORY OF PRESENT ILLNESS: HERE FOR ONE MOS. F/U AND MANAGEMENT OF CHRONIC NECK AND LOW BACK PAIN.USING ROBAXIN 500MG AND PERCOCET 10/325 PRN FOR SEVERE PAIN WITH GOOD EFFECT. PAIN THE PATIENT DESCRIBES THE PAIN... FALL RISK SCREENING: SCREENING :NO FALLS IN THE PAST YEAR CURRENT MEDICATIONS TAKING ARTIFICIAL TEARS 0.4 % SOLUTION 1 DROP INTO AFFECTED EYE NEEDED OPHTHALMIC ONCE A DAY TAKING NEXIUM 24HR 20 MG CAPSULE DELAYED RELEASE 1 CAPSULE ORALLY ONCE A DAY TAKING TESTOSTERONE CYPIONATE 200 MG/ML OIL 0.8 ML INTRAMUSCULAR(DR KIERRA ELMORE) EVERY 10 DAYS TAKING VITAMIN D 2000 UNIT CAPSULE 1 CAPSULE ORALLY DAILY TAKING FERROUS SULFATE 325 (65 FE) MG TABLET 1 TABLET ORALLY ONCE A DAY TAKING AMLODIPINE BESYLATE 5 MG TABLET 1 TABLET ORALLY ONCE A DAY TAKING DESHAWN ALLERGY 60 MG TABLET 1 TABLET NEEDED ORALLY ONCE A DAY TAKING CLONAZEPAM 0.5 MG TABLET DISPERSIBLE 1-2 TABLET ON THE TONGUE AND ALLOW TO DISSOLVE ORALLY AT BEDTIME NEEDED FOR INSOMNIA AND RESTLESS LEGS MDD:2 TAKING LISINOPRIL-HYDROCHLOROTHIAZIDE 20-25 MG TABLET 1 TABLET ORALLY ONCE A DAY TAKING GABAPENTIN 300 MG CAPSULE 1 CAPSULE ORALLY TWICE DAILY TAKING LEXAPRO 20 MG TABLET 1 TAB ORALLY EVERY OTHER DAY-WEANING OFF TAKING PERCOCET 10-325 MG TABLET 1 TABLET NEEDED ORALLY EVERY 6 HRS MDD4 TAKING ROBAXIN 500 MG TABLET 1 ORALLY BID MEDICATION LIST REVIEWED AND RECONCILED WITH THE PATIENT PAST MEDICAL HISTORY BACK PAIN - EPIDURAL INJECTIONS EVERY 7-9 WEEKS ([facility]) BARRETS ESOPHAGUS HYPERTENSION SLEEP APNEA TX WITH CPAP (PULEmelia MAURICIO) HYPOTESTOSTERONEMIA (Jermaine ELMORE) MAJOR DEPRESSION, SINGLE EPISODE (MANISH) ANXIETY OA (MULTIPLE LOCATIONS) IFG A1C 01/16 6.0 ALLERGIES PENICILLIN (FOR ALLERGIES USE ONLY): FEET SWELLS: ALLERGY SOCIAL HISTORY GENERAL: TOBACCO USE ARE YOU A:NONSMOKER LEARNING BARRIERS / SPECIAL NEEDS ORIENTED TO PLAN OF CARE: PATIENT, PAIN MANAGEMENT PATIENT, ORIENTED TO PLAN OF CARE: PATIENT, PAIN MANAGEMENT PATIENT. NEW PATIENT PAIN DIARY TODAY'S VISITNOTES FROM 0-10, WHAT LEVEL IS YOUR PAIN TODAY?0 PAIN CLINIC PFS, CLERGY, PUBLIC HEALTH REFERRALS PFS REFERRAL NEEDED?NO CLERGY REFERRAL NEEDED?NO PUBLIC HEALTH REFERRAL NEEDED?NO WAS THE PROVIDER NOTIFIED OF ANY PERTINENT INFO?NO PFS REFERRAL NEEDED?NO CLERGY REFERRAL NEEDED?NO PUBLIC HEALTH REFERRAL NEEDED?NO WAS THE PROVIDER NOTIFIED OF ANY PERTINENT INFO?NO REVIEW OF SYSTEMS CONSTITUTIONAL: ANY CHANGE IN YOUR MEDICAL CONDITION? NO . CHILLS NO . FEVER NO . INFECTION: DO YOU HAVE NEW INFECTIONS? NO . DO YOU HAVE HISTORY OF MRSA? NO . MUSCULOSKELETAL: ANY NEW PATTERNS OF PAIN OR NUMBNESS? YES PT NOTES HX OF RIGHT FOOT PAIN SINCE MID APRIL. OCCASIONALLY PAIN RADIATES UP IN TO RIGHT LOWER LEG. WORSENS WITH WALKING. . GASTROENTEROLOGY: ANY NEW CHANGE IN BOWEL CONTROL? NO . GENITOURINARY: ANY NEW CHANGE IN BLADDER CONTROL? NO . IS THERE A CHANCE YOU COULD BE ? NO . HEMATOLOGY/LYMPH: DO YOU TAKE ANY BLOOD THINNERS? (FOR EXAMPLE- COUMADIN, PLAVIX, AGGRENOX, PLATEL, PRADAXA, OR XARELTO) NO . WHEN WAS YOUR LAST DOSE? DATE: TIME: . NEUROLOGY: HAVE YOU FALLEN IN THE PAST 6 MONTHS? NO . ANY NEW EXTREMITY NUMBNESS OR WEAKNESS? NO . CARDIOLOGY: DO YOU HAVE A PACEMAKER OR DEFIBRILLATOR? NO . RESPIRATORY: HAVE YOU BEEN SICK IN THE PAST WEEK? NO . FEVER NO . FLU LIKE SYMPTOMS? NO . COUGH NO . INTEGUMENTARY: DO YOU HAVE ANY RASHES OR OPEN SORES? NO . ALLERGIC/IMMUNO: ARE YOU ALLERGIC TO SHELLFISH OR IV DYE? NO . ANY NEW ALLERGIES? NO . PSYCHIATRIC: DO YOU HAVE THOUGHTS OF HURTING YOURSELF OR SOMEONE ELSE? NO . ARE YOU ABUSED, NEGLECTED, OR IN AN UNSAFE ENVIRONMENT? NO . ENDOCRINOLOGY: ARE YOU DIABETIC? NO . OTHER: DO YOU NEED ANY PRESCRIPTIONS? NO . IF YES, PLEASE LIST: ____ . ANY NEW PROBLEMS WITH YOUR MEDICATIONS? NO . WHEN DID YOU LAST EAT? ____ . WHEN DID YOU LAST DRINK? ____ . WHAT DID YOU LAST DRINK? ____ . NAME OF PERSON DRIVING YOU HOME? ____ . DO YOU HAVE ANY OTHER QUESTIONS OR CONCERNS NO . REVIEWED BY: PROVIDER: WILLIAM DYE . VITAL SIGNS WT 228.4 LBS, HT 68 IN, BMI 34.72 INDEX, BP 137/75 MM HG, HR 88 /MIN, RR 18 /MIN, TEMP 96.2 F, OXYGEN SAT % 95, NA INITIALS AW 1116, REVIEWED BY: MLF. EXAMINATION GENERAL EXAMINATION: LUNGS:LUNG SOUNDS ARE CLEAR. HEART:HEART RATE REGULAR. MUSCULOSKELETAL:*,.PALPATION: POSITIVE FOR PAIN OVER L/S SPINE. POSITIVE FOR PAIN OVER L/S PARSPINALS,MUSCLE STRENGTH TESTING 5/5 RLE,3/5 LLE. DIAGNOSTIC:MRI L/S [id number]-REVIEWED W PATIENT. MULTI LEVEL LUMBAR DISC PROTRUSIONS W COMPRESION OF LEFT L5 NERVE ROOT.. 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 FACILITY CHARGE G8783 BP SCR PRFRM RCMDD DEFIND SCR INTVL G8730 PAIN ASSESS POS TOOL F/U PLAN DOC 3016F PT SCRND UNHLTHY OH USE 1124F ACP DISCUSS-NO DSCNMKR DOCD 1036F TOBACCO NON-USER 0518F FALL PLAN OF CARE DOCD G8427 DOC MEDS VERIFIED W/PT OR RE G8417 BMI >=30 CALCUATE W/FOLLOWUP 3288F FALL RISK ASSESSMENT DOCD DISPOSITION & COMMUNICATION FOLLOW UP 6 WEEKS ELECTRONICALLY SIGNED BY HARDIK HUSAIN ON 06/17/2016 AT 01:16 PM EDT DISCLAIMER : THIS IS A VISIT SUMMARY EXTRACTED FROM THE [facility] CHART. IT IS NOT A COPY OF THE [facility] PROGRESS NOTE. MTDD
== END | disposition home or self-care (01) ==
LOC: M PAIN 10:40
PROVIDERS: ATTEND Nurse Practitioner Family
DX: Z09 Encounter for follow-up examination after completed treatment for conditions other than malignant neoplasm (principal); G89.29 Other chronic pain; M47.12 Other spondylosis with myelopathy, cervical region; M47.26 Other spondylosis with radiculopathy, lumbar region; I10 Essential (primary) hypertension; F41.9 Anxiety disorder, unspecified; F32.9 Major depressive disorder, single episode, unspecified; M19.90 Unspecified osteoarthritis, unspecified site; E29.1 Testicular hypofunction; Z79.899 Other long term (current) drug therapy; Z88.0 Allergy status to penicillin

== ENCOUNTER → 2016-07-29 | Outpatient (CLI) | payer MEDICARE ==
--- NOTE | 2016-07-30 00:46 | ECWPNPC ---
PATIENT NAME: KIMBERLEY VALENCIA : 1965 GENDER: MALE VISIT DATE: 07/29/2016 DISCHARGE DATE: 07/29/16 1000 VISIT LOCKED DATE TIME: PHYSICIAN: WILLIAM FREEMAN PHYSICIAN PAGER NO: TEXT SD [phone] RESOURCE: WILLIAM FREEMAN REASON FOR APPOINTMENT 1. NECK/BACK HISTORY OF PRESENT ILLNESS HISTORY OF PRESENT ILLNESS: HERE FOR ONE MOS. F/U AND MANAGEMENT OF CHRONIC NECK AND LOW BACK PAIN.USING ROBAXIN 500MG AND PERCOCET 10/325 PRN FOR SEVERE PAIN WITH GOOD EFFECT.RATING PAIN VAS 3/10.DESCRIBES CONSTANT NECK AND LOWBACK ACHING WITH INTERMITTENT LEFT LEG PAIN.PAIN IS AGGRVATED BY LIFTING OR PROLONGED SITTING OR STANDING. PAIN THE PATIENT DESCRIBES THE PAIN... THE PATIENT DESCRIBES THE PAIN... FALL RISK SCREENING: SCREENING :NO FALLS IN THE PAST YEAR CURRENT MEDICATIONS TAKING ARTIFICIAL TEARS 0.4 % SOLUTION 1 DROP INTO AFFECTED EYE NEEDED OPHTHALMIC ONCE A DAY TAKING NEXIUM 24HR 20 MG CAPSULE DELAYED RELEASE 1 CAPSULE ORALLY ONCE A DAY TAKING TESTOSTERONE CYPIONATE 200 MG/ML OIL 0.8 ML INTRAMUSCULAR(DR KIERRA ELMORE) EVERY 10 DAYS TAKING VITAMIN D 2000 UNIT CAPSULE 1 CAPSULE ORALLY DAILY TAKING FERROUS SULFATE 325 (65 FE) MG TABLET 1 TABLET ORALLY ONCE A DAY TAKING AMLODIPINE BESYLATE 5 MG TABLET 1 TABLET ORALLY ONCE A DAY TAKING DESHAWN ALLERGY 60 MG TABLET 1 TABLET NEEDED ORALLY ONCE A DAY TAKING CLONAZEPAM 0.5 MG TABLET DISPERSIBLE 1-2 TABLET ON THE TONGUE AND ALLOW TO DISSOLVE ORALLY AT BEDTIME NEEDED FOR INSOMNIA AND RESTLESS LEGS MDD:2 TAKING LISINOPRIL-HYDROCHLOROTHIAZIDE 20-25 MG TABLET 1 TABLET ORALLY ONCE A DAY TAKING GABAPENTIN 300 MG CAPSULE 1 CAPSULE ORALLY TWICE DAILY TAKING LEXAPRO 20 MG TABLET 1 TAB ORALLY DAILY TAKING PERCOCET 10-325 MG TABLET 1 TABLET NEEDED ORALLY EVERY 6 HRS MDD4 TAKING ROBAXIN 500 MG TABLET 1 ORALLY BID NEEDED MEDICATION LIST REVIEWED AND RECONCILED WITH THE PATIENT PAST MEDICAL HISTORY BACK PAIN - EPIDURAL INJECTIONS EVERY 7-9 WEEKS ([facility]) BARRETS ESOPHAGUS HYPERTENSION SLEEP APNEA [place] WITH CPAP (PULM ASSOC) HYPOTESTOSTERONEMIA (Jermaine ELMORE) MAJOR DEPRESSION, SINGLE EPISODE (MANISH) ANXIETY OA (MULTIPLE LOCATIONS) IFG A1C 01/16 6.0 ALLERGIES PENICILLIN (FOR ALLERGIES USE ONLY): FEET SWELLS: ALLERGY SOCIAL HISTORY GENERAL: PAIN CLINIC PFS, CLERGY, PUBLIC HEALTH REFERRALS CLERGY REFERRAL NEEDED?NO WAS THE PROVIDER NOTIFIED OF ANY PERTINENT INFO?NO PFS REFERRAL NEEDED?NO PUBLIC HEALTH REFERRAL NEEDED?NO PATIENT: ____. REVIEW OF SYSTEMS CONSTITUTIONAL: ANY CHANGE IN YOUR MEDICAL CONDITION? NO . CHILLS NO . FEVER NO . INFECTION: DO YOU HAVE NEW INFECTIONS? NO . DO YOU HAVE HISTORY OF MRSA? NO . MUSCULOSKELETAL: ANY NEW PATTERNS OF PAIN OR NUMBNESS? NO . GASTROENTEROLOGY: ANY NEW CHANGE IN BOWEL CONTROL? NO . GENITOURINARY: ANY NEW CHANGE IN BLADDER CONTROL? NO . IS THERE A CHANCE YOU COULD BE ? NO . HEMATOLOGY/LYMPH: DO YOU TAKE ANY BLOOD THINNERS? (FOR EXAMPLE- COUMADIN, PLAVIX, AGGRENOX, PLATEL, PRADAXA, OR XARELTO) NO . WHEN WAS YOUR LAST DOSE? DATE: TIME: . NEUROLOGY: HAVE YOU FALLEN IN THE PAST 6 MONTHS? NO . ANY NEW EXTREMITY NUMBNESS OR WEAKNESS? NO . CARDIOLOGY: DO YOU HAVE A PACEMAKER OR DEFIBRILLATOR? NO . RESPIRATORY: HAVE YOU BEEN SICK IN THE PAST WEEK? NO . FEVER NO . FLU LIKE SYMPTOMS? NO . COUGH NO . INTEGUMENTARY: DO YOU HAVE ANY RASHES OR OPEN SORES? NO . ALLERGIC/IMMUNO: ARE YOU ALLERGIC TO SHELLFISH OR IV DYE? NO . ANY NEW ALLERGIES? NO . PSYCHIATRIC: DO YOU HAVE THOUGHTS OF HURTING YOURSELF OR SOMEONE ELSE? NO . ARE YOU ABUSED, NEGLECTED, OR IN AN UNSAFE ENVIRONMENT? NO . ENDOCRINOLOGY: ARE YOU DIABETIC? NO . OTHER: DO YOU NEED ANY PRESCRIPTIONS? NO . IF YES, PLEASE LIST: ____ . ANY NEW PROBLEMS WITH YOUR MEDICATIONS? NO . WHEN DID YOU LAST EAT? ____ . WHEN DID YOU LAST DRINK? ____ . WHAT DID YOU LAST DRINK? ____ . NAME OF PERSON DRIVING YOU HOME? ____ . DO YOU HAVE ANY OTHER QUESTIONS OR CONCERNS NO . REVIEWED BY: PROVIDER: WILLIAM DYE . VITAL SIGNS WT 228 LBS, HT 68 IN, BMI 34.66 INDEX, BP 136/82 MM HG, HR 91 /MIN, RR 18 /MIN, TEMP 98.4 F, OXYGEN SAT % 95%, REVIEWED BY: KEHINDE (DONE AT 0910). EXAMINATION GENERAL EXAMINATION: LUNGS:LUNG SOUNDS ARE CLEAR. HEART:HEART RATE REGULAR. MUSCULOSKELETAL:*,.PALPATION: POSITIVE FOR PAIN OVER L/S SPINE. POSITIVE FOR PAIN OVER L/S PARSPINALS,MUSCLE STRENGTH TESTING 5/5 RLE,3/5 LLE. DIAGNOSTIC:MRI L/S [id number]-REVIEWED W PATIENT. MULTI LEVEL LUMBAR DISC PROTRUSIONS W COMPRESION OF LEFT L5 NERVE ROOT.. 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 BRINGS IN MEDICATIONS WHICH IS APPROPRIATE FOR WHAT WAS DISPENSED. RECENT URINE TOXICOLOGY REVIEWED. NO UNAUTHORIZED MEDICATIONS. NO ILLICIT SUBSTANCES AND PRESCRIBED MEDICATIONS WERE PRESENT. , #128 - SCREENING BMI AND F/U PLAN IN : BMI ABOVE NORMAL TODAY. DISCUSSED WITH PATIENT NUTRITIONAL FOOD CHOICES TO ASSIST WITH WEIGHT LOSS. RECCOMMENDED REDUCING SALT, SUGAR, SODA INTAKE. RECOMMEND INCREASE ACTIVITY TO INCLUDE WALKING ON A REGULAR BASIS. PROFESSIONAL NUTRITIONAL NUTRITIONAL GUIDANCE WAS OFFERED AND WAS DECLINED. URINE TOX TODAY. PROCEDURE CODES FA211 ESTABILISHED PATIENT [facility] FACILITY CHARGE G3430 PAIN ASSESS POS TOOL F/U PLAN DOC G8427 DOC MEDS VERIFIED W/PT OR RE DISPOSITION & COMMUNICATION FOLLOW UP 2 MONTHS ELECTRONICALLY SIGNED BY HARDIK HUSAIN ON 07/29/2016 AT 11:45 AM EDT DISCLAIMER : THIS IS A VISIT SUMMARY EXTRACTED FROM THE [facility] CHART. IT IS NOT A COPY OF THE [facility] PROGRESS NOTE. ENE
== END ==
LOC: M PAIN 08:40
PROVIDERS: ATTEND Nurse Practitioner Family
DX: M47.12 Other spondylosis with myelopathy, cervical region (principal); M47.26 Other spondylosis with radiculopathy, lumbar region; M54.5 Low back pain; M54.2 Cervicalgia; G89.29 Other chronic pain; Z79.891 Long term (current) use of opiate analgesic; Z79.899 Other long term (current) drug therapy; Z88.0 Allergy status to penicillin; I10 Essential (primary) hypertension; L98.1 Factitial dermatitis; E29.1 Testicular hypofunction; G47.30 Sleep apnea, unspecified; F41.8 Other specified anxiety disorders; J30.9 Allergic rhinitis, unspecified; G25.81 Restless legs syndrome; E55.9 Vitamin D deficiency, unspecified

== ENCOUNTER → 2016-08-07 | Outpatient (REF) | payer MEDICARE | LOC: M SFHCPLAZ 14:15 | PROVIDERS: ATTEND Family Medicine | DX: E55.9 Vitamin D deficiency, unspecified (principal) ==

== ENCOUNTER → 2016-09-16 | Outpatient (CLI) | payer MEDICARE ==
[2016-09-16 13:32] LABS: MEAN CORPUSCULAR HEMOGLOBIN 27.3 pg (27.0-33.0); MEAN CORPUSCULAR HGB CONC 31.8 g/dl (32.0-36.5); MEAN CORPUSCULAR VOLUME 85.7 fl (80.0-96.0); RED CELL DISTRIBUTION WIDTH 16.1 % (11.5-14.5); WHITE BLOOD COUNT 6.7 K/mm3 (4.0-10.0)
== END ==
LOC: M SMT 09:01
PROVIDERS: ATTEND Internal Medicine Endocrinology, Diabetes & Metabolism
DX: E29.1 Testicular hypofunction (principal)

== ENCOUNTER → 2016-09-24 | Outpatient (CLI) | payer MEDICARE ==
[~2016-09-24] MED LIST changes: -METF500T PO; +METF500T13 PO; -VITA100037 PO; +VITA100067 PO
--- NOTE | 2016-09-25 01:24 | ECWPNPC ---
PATIENT NAME: KIMBERLEY VALENCIA : 1965 GENDER: MALE VISIT DATE: 09/24/2016 DISCHARGE DATE: 09/24/16 1021 VISIT LOCKED DATE TIME: PHYSICIAN: WILLIAM FREEMAN PHYSICIAN PAGER NO: TEXT [phone] RESOURCE: WILLIAM FREEMAN REASON FOR APPOINTMENT 1. BACK HISTORY OF PRESENT ILLNESS HISTORY OF PRESENT ILLNESS: HERE FOR ONE MOS. F/U AND MANAGEMENT OF CHRONIC NECK AND LOW BACK PAIN.USING ROBAXIN 500MG AND PERCOCET 10/325 PRN FOR SEVERE PAIN WITH GOOD EFFECT.RATING PAIN VAS 3/10.DESCRIBES CONSTANT NECK AND LOWBACK ACHING WITH INTERMITTENT LEFT LEG PAIN.PAIN IS AGGRVATED BY LIFTING OR PROLONGED SITTING OR STANDING. PAIN THE PATIENT DESCRIBES THE PAIN... THE PATIENT DESCRIBES THE PAIN... THE PATIENT DESCRIBES THE PAIN... FALL RISK SCREENING: SCREENING :NO FALLS IN THE PAST YEAR CURRENT MEDICATIONS TAKING ARTIFICIAL TEARS 0.4 % SOLUTION 1 DROP INTO AFFECTED EYE NEEDED OPHTHALMIC ONCE A DAY TAKING NEXIUM 24HR 20 MG CAPSULE DELAYED RELEASE 1 CAPSULE ORALLY ONCE A DAY TAKING TESTOSTERONE CYPIONATE 200 MG/ML OIL 0.8 ML INTRAMUSCULAR(DR KIERRA ELMORE) EVERY 10 DAYS TAKING VITAMIN D 2000 UNIT CAPSULE 1 CAPSULE ORALLY DAILY TAKING FERROUS SULFATE 325 (65 FE) MG TABLET 1 TABLET ORALLY ONCE A DAY TAKING CLONAZEPAM 0.5 MG TABLET DISPERSIBLE 1-2 TABLET ON THE TONGUE AND ALLOW TO DISSOLVE ORALLY AT BEDTIME NEEDED FOR INSOMNIA AND RESTLESS LEGS MDD:2 TAKING LISINOPRIL-HYDROCHLOROTHIAZIDE 20-25 MG TABLET 1 TABLET ORALLY ONCE A DAY TAKING LEXAPRO 20 MG TABLET 1 TAB ORALLY DAILY TAKING GABAPENTIN 300 MG CAPSULE 1 CAPSULE ORALLY TWICE DAILY TAKING PERCOCET 10-325 MG TABLET 1 TABLET NEEDED ORALLY EVERY 6 HRS MDD4 TAKING ROBAXIN 500 MG TABLET 1 ORALLY BID NEEDED TAKING RESTASIS 0.05 % EMULSION 1 DROP INTO AFFECTED EYE OPHTHALMIC TWICE A DAY TAKING FEXOFENADINE-PSEUDOEPHED ER 180-240 MG TABLET EXTENDED RELEASE 24 HOUR 1 TABLET ORALLY ONCE A DAY TAKING AMLODIPINE BESYLATE 5 MG TABLET 1 TABLET ORALLY ONCE A DAY MEDICATION LIST REVIEWED AND RECONCILED WITH THE PATIENT PAST MEDICAL HISTORY BACK PAIN - ([facility]) BARRETS ESOPHAGUS HYPERTENSION SLEEP APNEA [place] WITH CPAP (PULM ASSOC) HYPOTESTOSTERONEMIA (Jermaine ELMORE) MAJOR DEPRESSION, SINGLE EPISODE (MANISH) ANXIETY OA (MULTIPLE LOCATIONS) ASCVD 10-YEAR RISK IS 5.3% IN 08/2016 ALLERGIES PENICILLIN (FOR ALLERGIES USE ONLY): FEET SWELLS: ALLERGY SURGICAL HISTORY TONSILLECTOMY CHILD BILATERAL CARPAL TUNNEL (FISH) 2009 EGD/COLONOSCOPY ([facility]ATHRYN IN [place]) 11/2011 LEFT ELBOW CUBITAL TUNNEL TRANSLATION (FISH) 2012 RIGHT CARPAL TUNNEL 07/05/13 COLO/EGD- KATHRYN-SYR- MILD ESOPHAGITIS 05/20 HOSPITALIZATION/MAJOR DIAGNOSTIC PROCEDURE CHEST PAIN/DYSPNEA, R/O ND (MARY ESTHER) 10/15 REVIEW OF SYSTEMS REVIEWED BY: PROVIDER: WILLIAM DYE . CONSTITUTIONAL: ANY CHANGE IN YOUR MEDICAL CONDITION? NO . CHILLS NO . FEVER NO . INFECTION: DO YOU HAVE NEW INFECTIONS? NO . DO YOU HAVE HISTORY OF MRSA? NO . MUSCULOSKELETAL: ANY NEW PATTERNS OF PAIN OR NUMBNESS? NO . GASTROENTEROLOGY: ANY NEW CHANGE IN BOWEL CONTROL? NO . GENITOURINARY: ANY NEW CHANGE IN BLADDER CONTROL? NO . IS THERE A CHANCE YOU COULD BE ? NO . HEMATOLOGY/LYMPH: DO YOU TAKE ANY BLOOD THINNERS? (FOR EXAMPLE- COUMADIN, PLAVIX, AGGRENOX, PLATEL, PRADAXA, OR XARELTO) NO . WHEN WAS YOUR LAST DOSE? DATE: TIME: . NEUROLOGY: HAVE YOU FALLEN IN THE PAST 6 MONTHS? YES, PT REPORTS FALLING DOWN 2 STEPS LANDING ON CONCRETE FLOOR, INJURING ANKLES AND LOWER BACK. PT DENIES SEEKING MEDICAL TREATMENT FOR THIS . ANY NEW EXTREMITY NUMBNESS OR WEAKNESS? NO . CARDIOLOGY: DO YOU HAVE A PACEMAKER OR DEFIBRILLATOR? NO . RESPIRATORY: HAVE YOU BEEN SICK IN THE PAST WEEK? NO . FEVER NO . FLU LIKE SYMPTOMS? NO . COUGH NO . INTEGUMENTARY: DO YOU HAVE ANY RASHES OR OPEN SORES? NO . ALLERGIC/IMMUNO: ARE YOU ALLERGIC TO SHELLFISH OR IV DYE? NO . ANY NEW ALLERGIES? NO . PSYCHIATRIC: DO YOU HAVE THOUGHTS OF HURTING YOURSELF OR SOMEONE ELSE? NO . ARE YOU ABUSED, NEGLECTED, OR IN AN UNSAFE ENVIRONMENT? NO . ENDOCRINOLOGY: ARE YOU DIABETIC? NO . OTHER: DO YOU NEED ANY PRESCRIPTIONS? YES, PERCOSET . IF YES, PLEASE LIST: ____ . ANY NEW PROBLEMS WITH YOUR MEDICATIONS? NO . WHEN DID YOU LAST EAT? ____ . WHEN DID YOU LAST DRINK? ____ . WHAT DID YOU LAST DRINK? ____ . NAME OF PERSON DRIVING YOU HOME? ____ . DO YOU HAVE ANY OTHER QUESTIONS OR CONCERNS NO . VITAL SIGNS WT 238.6 LBS, HT 68 IN, BMI 36.28 INDEX, BP 154/94 MM HG, HR 96 /MIN, RR 18 /MIN, TEMP 98.0 F, OXYGEN SAT % 95%, NA INITIALS TL 0940. EXAMINATION GENERAL EXAMINATION: LUNGS:LUNG SOUNDS ARE CLEAR. HEART:HEART RATE REGULAR. MUSCULOSKELETAL:*,.PALPATION: POSITIVE FOR PAIN OVER L/S SPINE. POSITIVE FOR PAIN OVER L/S PARASPINALS,MUSCLE STRENGTH TESTING 5/5 RLE,3/5 LLE. DIAGNOSTIC:MRI L/S [id number]-REVIEWED W PATIENT. MULTI LEVEL LUMBAR DISC PROTRUSIONS W COMPRESION OF LEFT L5 NERVE ROOT.. 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 BRINGS IN MEDICATIONS WHICH IS APPROPRIATE FOR WHAT WAS DISPENSED. RECENT URINE TOXICOLOGY REVIEWED. NO UNAUTHORIZED MEDICATIONS. NO ILLICIT SUBSTANCES AND PRESCRIBED MEDICATIONS WERE PRESENT. , RISKS AND BENEFITS OF NARCOTIC/OPIOD MEDICATIONS WERE REVIEWED WITH PATIENT - THIS INCLUDES BUT IS NOT LIMITED TO RISK OF DEPENDANCE/DEVELOPMENT OF ADDICTION, MOOD DISTURBANCE AND DEPRESSION, OSTEOPOROSIS, HORMONAL AND LABIDAL CHANGES, RESPIRATORY DEPRESSION AND . PATIENT IS ADVISED NOT TO DRIVE WHILE ON THESE MEDICATIONS.URINE TOX TODAY.LESI-INTRALAM.L4/5. PROCEDURE CODES FA211 ESTABILISHED PATIENT [facility] FACILITY CHARGE DISPOSITION & COMMUNICATION FOLLOW UP 2WK POST (REASON: LESI-INTRALAM.L4/5) ELECTRONICALLY SIGNED BY HARDIK HUSAIN ON 09/24/2016 AT 02:41 PM EDT DISCLAIMER : THIS IS A VISIT SUMMARY EXTRACTED FROM THE [employer] CHART. IT IS NOT A COPY OF THE [employer] PROGRESS NOTE. MTDD
== END ==
LOC: M PAIN 09:20
PROVIDERS: ATTEND Nurse Practitioner Family
DX: G89.29 Other chronic pain (principal); M47.26 Other spondylosis with radiculopathy, lumbar region; Z79.891 Long term (current) use of opiate analgesic; K22.70 Barrett's esophagus without dysplasia; I10 Essential (primary) hypertension; G47.30 Sleep apnea, unspecified; E29.1 Testicular hypofunction; M15.0 Primary generalized (osteo)arthritis; F32.9 Major depressive disorder, single episode, unspecified; F41.9 Anxiety disorder, unspecified; Z88.0 Allergy status to penicillin; Z79.899 Other long term (current) drug therapy

== ENCOUNTER → 2016-10-08 | Outpatient (CLI) | payer MEDICARE ==
[~2016-10-08] MED LIST changes: +ISOVUE-M 300 61% 15ML VIAL (Q9967) As Ordered ONE; +LIDOCAINE 1% SDV INJ 30 ML VIAL As Ordered ONE; +methylPREDNISolone SUSP 40 MG/ML (DEPO-medrol) VIAL (J1030) As Ordered ONE; +oxyCODONE 5MG TAB As Ordered ONE
--- NOTE | 2016-10-08 13:58 | REP ---
PARTIAL LUMBAR SPINE SERIES: Single view. HISTORY: Lumbar epidural steroid injection for pain. 7 seconds of fluoroscopy time is reported. FINDINGS: A single fluoroscopically obtained last image hold spot radiograph of the lumbar spine documents needle position and contrast injection associated with injection procedure. Signed by Kamran Kirk MD 10/08/2016 05:15 P
--- NOTE | 2016-10-18 23:44 | ECWPNPC ---
PATIENT NAME: KIMBERLEY VALENCIA : 1965 GENDER: MALE VISIT DATE: 10/08/2016 DISCHARGE DATE: 10/08/16 1043 VISIT LOCKED DATE TIME: PHYSICIAN: OMA POWELL PHYSICIAN PAGER NO: TEXT SZ [phone] RESOURCE: OMA POWELL REASON FOR APPOINTMENT 1. LESI-INTRALAM.L4/5 HISTORY OF PRESENT ILLNESS HISTORY OF PRESENT ILLNESS: PAIN THE PATIENT DESCRIBES THE PAIN... FALL RISK SCREENING: SCREENING :NO FALLS IN THE PAST YEAR CURRENT MEDICATIONS TAKING ARTIFICIAL TEARS 0.4 % SOLUTION 1 DROP INTO AFFECTED EYE NEEDED OPHTHALMIC ONCE A DAY, NOTES: 10/07/162199 TAKING NEXIUM 24HR 20 MG CAPSULE DELAYED RELEASE 1 CAPSULE ORALLY ONCE A DAY, NOTES: 10/07/16 1000 TAKING TESTOSTERONE CYPIONATE 200 MG/ML OIL 0.8 ML INTRAMUSCULAR(DR KIERRA ELMORE) EVERY 10 DAYS, NOTES: 10/04/16 TAKING VITAMIN D 2000 UNIT CAPSULE 1 CAPSULE ORALLY DAILY, NOTES: 10/07/16 1000 TAKING FERROUS SULFATE 325 (65 FE) MG TABLET 1 TABLET ORALLY ONCE A DAY, NOTES: 10/07/16 1000 TAKING CLONAZEPAM 0.5 MG TABLET DISPERSIBLE 1-2 TABLET ON THE TONGUE AND ALLOW TO DISSOLVE ORALLY AT BEDTIME NEEDED FOR INSOMNIA AND RESTLESS LEGS MDD:2, NOTES: > ONE MONTH AGO TAKING LISINOPRIL-HYDROCHLOROTHIAZIDE 20-25 MG TABLET 1 TABLET ORALLY ONCE A DAY, NOTES: 10/07/16 1000 TAKING LEXAPRO 20 MG TABLET 1 TAB ORALLY DAILY, NOTES: 10/07/16 1000 TAKING GABAPENTIN 300 MG CAPSULE 1 CAPSULE ORALLY TWICE DAILY, NOTES: 10/07/16 1000 TAKING RESTASIS 0.05 % EMULSION 1 DROP INTO AFFECTED EYE OPHTHALMIC TWICE A DAY, NOTES: 10/07/162199 TAKING FEXOFENADINE-PSEUDOEPHED ER 180-240 MG TABLET EXTENDED RELEASE 24 HOUR 1 TABLET ORALLY ONCE A DAY, NOTES: 10/07/16 1000 TAKING AMLODIPINE BESYLATE 5 MG TABLET 1 TABLET ORALLY ONCE A DAY, NOTES: 10/07/16 1000 TAKING ROBAXIN 500 MG TABLET 1 ORALLY BID NEEDED, NOTES: 10/04/16 TAKING PERCOCET 10-325 MG TABLET 1 TABLET NEEDED ORALLY EVERY 6 HRS MDD4, NOTES: 10/07/162199 MEDICATION LIST REVIEWED AND RECONCILED WITH THE PATIENT PAST MEDICAL HISTORY BACK PAIN - ([facility]) BARRETS ESOPHAGUS HYPERTENSION SLEEP APNEA [place] WITH CPAP (PULM ASSOC) HYPOTESTOSTERONEMIA (C. FISH) MAJOR DEPRESSION, SINGLE EPISODE (MANISH) ANXIETY OA (MULTIPLE LOCATIONS) ASCVD 10-YEAR RISK IS 5.3% IN 08/2016 ALLERGIES PENICILLIN (FOR ALLERGIES USE ONLY): FEET SWELLS: ALLERGY SURGICAL HISTORY TONSILLECTOMY CHILD BILATERAL CARPAL TUNNEL (FISH) 2009 EGD/COLONOSCOPY ([facility] IN [place]) 11/2011 LEFT ELBOW CUBITAL TUNNEL TRANSLATION (FISH) 2012 RIGHT CARPAL TUNNEL 07/05/13 COLO/EGD- KATHRYN-SYR- MILD ESOPHAGITIS 05/20 HOSPITALIZATION/MAJOR DIAGNOSTIC PROCEDURE CHEST PAIN/DYSPNEA, R/O [place] ([place]) 10/15 REVIEW OF SYSTEMS REVIEWED BY: PROVIDER: . CONSTITUTIONAL: ANY CHANGE IN YOUR MEDICAL CONDITION? YES PT REPORTS RECENT LOSS OF HEARING, TO SEE ENT FOR THIS. . CHILLS NO . FEVER NO . INFECTION: DO YOU HAVE NEW INFECTIONS? NO . DO YOU HAVE HISTORY OF MRSA? NO . MUSCULOSKELETAL: ANY NEW PATTERNS OF PAIN OR NUMBNESS? YES PT REPORTS PAIN IS RADIATING MORE TOWARDS RIGHT SIDE THAN USUAL, AND INTO ANKLE. . GASTROENTEROLOGY: ANY NEW CHANGE IN BOWEL CONTROL? NO . GENITOURINARY: ANY NEW CHANGE IN BLADDER CONTROL? NO . IS THERE A CHANCE YOU COULD BE ? NO . HEMATOLOGY/LYMPH: DO YOU TAKE ANY BLOOD THINNERS? (FOR EXAMPLE- COUMADIN, PLAVIX, AGGRENOX, PLATEL, PRADAXA, OR XARELTO) NO . WHEN WAS YOUR LAST DOSE? DATE: TIME: . NEUROLOGY: HAVE YOU FALLEN IN THE PAST 6 MONTHS? YES PT REPORTS HE FELL DOWN THREE STEPS ONTO CONCRETE IN AUGUST. . ANY NEW EXTREMITY NUMBNESS OR WEAKNESS? NO . CARDIOLOGY: DO YOU HAVE A PACEMAKER OR DEFIBRILLATOR? NO . RESPIRATORY: HAVE YOU BEEN SICK IN THE PAST WEEK? NO . FEVER NO . FLU LIKE SYMPTOMS? NO . COUGH NO . INTEGUMENTARY: DO YOU HAVE ANY RASHES OR OPEN SORES? NO . ALLERGIC/IMMUNO: ARE YOU ALLERGIC TO SHELLFISH OR IV DYE? NO . ANY NEW ALLERGIES? NO . PSYCHIATRIC: DO YOU HAVE THOUGHTS OF HURTING YOURSELF OR SOMEONE ELSE? NO . ARE YOU ABUSED, NEGLECTED, OR IN AN UNSAFE ENVIRONMENT? NO . ENDOCRINOLOGY: ARE YOU DIABETIC? NO . OTHER: DO YOU NEED ANY PRESCRIPTIONS? YES . IF YES, PLEASE LIST: ____PERCOCET . ANY NEW PROBLEMS WITH YOUR MEDICATIONS? NO . WHEN DID YOU LAST EAT? ____10/07/16 2200 . WHEN DID YOU LAST DRINK? ____10/08/16 0400 . WHAT DID YOU LAST DRINK? ____COFFEE . NAME OF PERSON DRIVING YOU HOME? ____SUSAN . DO YOU HAVE ANY OTHER QUESTIONS OR CONCERNS NO . VITAL SIGNS WT 235 LBS, HT 68 IN, BMI 20.10 INDEX, BP 118/73 MM HG, HR 94 /MIN, RR 18 /MIN, TEMP 98.7 F, OXYGEN SAT % 94%, SAFE IN ENV? (Y/N) YES, NA INITIALS MD 09:08, REVIEWED BY: ASSESSMENTS INTERVERTEBRAL DISC DISORDERS WITH RADICULOPATHY, LUMBAR REGION - M51.16 (PRIMARY) PROCEDURES PRE PROCEDURE DIAGNOSIS LUMBAR DISC DISORDER WITH RADICULOPATHY POST PROCEDURE DIAGNOSIS LUMBAR DISC DISORDER WITH RADICULOPATHY PROCEDURE LUMBAR EPIDURAL STEROID INJECTION UNDER FLUOROSCOPIC GUIDANCE SURGEON DR. OMA POWELL AIX SYSTEM ADMINISTRATOR NONE ANESTHESIA LOCAL PRE PROCEDURE NOTE THE PATIENT HAS A HISTORY OF CHRONIC LOW BACK PAIN. I EVALUATE THE PATIENT AND REVIEWED THE CHART. I WENT OVER THE RISKS, ALTERNATIVES, AND BENEFITS ASSOCIATED WITH THIS PROCEDURE. THE PATIENT WOULD LIKE TO PROCEED AND GIVE CONSENT TO PERFORMED THE PROCEDURE. THE PATIENT DENIES UNEXPLAINABLE WEIGHT LOSS, FEVER, CHILLS, OR NEW CHANGES IN URINARY OR BOWEL CONTROL DESCRIPTION OF PROCEDURE THE PATIENT WAS BROUGHT TO THE PROCEDURE ROOM AND PLACED IN THE PRONE POSITION. THE LUMBOSACRAL AREA WAS CLEANED WITH BETADINE SOLUTION AND DRAPED ASEPTICALLY. THE PROCEDURE WAS DONE UNDER STERILE CONDITIONS. I CHECKED LATERALITY AND THE LEVEL WHERE THE PROCEDURE WAS GOING TO BE PERFORMED WITH THE PATIENT AND THE SUPPORTING STAFF AT THE MOMENT OF THE TIME OUT IN THE PROCEDURE ROOM. UNDER FLUOROSCOPIC GUIDANCE, THE TARGET POINT WAS SELECTED AT THE INTERLAMINAR LEVEL OF L4-L5. LIDOCAINE WAS USED TO NUMB THE SKIN AND THE SUBCUTANEOUS TISSUE BELOW IT. EPIDURAL TUOHY NEEDLE, 17-GAUGE, WAS ADVANCED UNDER FLUOROSCOPIC GUIDANCE AND FOLLOWING PATIENT FEEDBACK UNTIL THE EPIDURAL SPACE WAS REACHED, 7 CM DEEP INTO THE SKIN BY THE LOSS OF RESISTANCE TECHNIQUE. ISOVUE M DYE 30%, 0.25 ML, WAS INJECTED SHOWING ADEQUATE SPREAD OF THE DYE. THEN, A SOLUTION OF 3 ML OF NORMAL SALINE WITH DEPO-MEDROL 60 MG WAS INJECTED SLOWLY FOLLOWING PATIENT FEEDBACK. THERE WAS NO EVIDENCE OF BLOOD, PARESTHESIA OR CEREBROSPINAL FLUID DURING THE PROCEDURE. THE PATIENT WAS SENT TO THE RECOVERY ROOM. THE PATIENT WAS MOVING THE EXTREMITIES AND DOING WELL. THERE WAS NO COMPLICATION DURING THE PROCEDURE. FLUOROSCOPY TIME WAS 7 SECONDS. POST PROCEDURE NOTE THE PATIENT WILL BE SEEN IN A FOLLOW UP IN THE NEXT FEW WEEKS. INSTRUCTIONS WERE GIVEN, QUESTIONS WERE ANSWERED, AND THE PATIENT EXPRESSED UNDERSTANDING AND AGREES WITH THE PLAN. I, RANDALL LANTIGUA, DOCUMENTED THE ABOVE INFORMATION ACTING A SCRIBE FOR DR. POWELL. I HAVE REVIEWED THE ABOVE DOCUMENT, WRITTEN BY RANDALL LANTIGUA SCRIBE AND I VERIFY THAT IT IS ACCURATE DIAGNOSTIC IMAGING [facility] FLUORO GUIDE SPINE INJECTION (PAIN)[id number] PROCEDURE CODES 52119 LUMBAR/SACRAL W/ IMAGING 6045F RADXPS IN END [id number] PXD DISPOSITION & COMMUNICATION FOLLOW UP 3 WEEKS ELECTRONICALLY SIGNED BY OMA POWELL MD ON 10/18/2016 AT 10:26 PM EDT DISCLAIMER : THIS IS A VISIT SUMMARY EXTRACTED FROM THE [employer] CHART. IT IS NOT A COPY OF THE [employer] PROGRESS NOTE. MTDD
== END ==
LOC: M PAIN 08:40
PROVIDERS: ATTEND Anesthesiology
DX: G89.29 Other chronic pain (principal); M51.16 Intervertebral disc disorders with radiculopathy, lumbar region; M54.5 Low back pain; Z79.899 Other long term (current) drug therapy; Z79.891 Long term (current) use of opiate analgesic; Z88.0 Allergy status to penicillin
CPT/HCPCS: 62323; J1030; Q9967

== ENCOUNTER → 2016-10-16 | Outpatient (REF) | payer MEDICARE ==
[~2016-10-16] MED LIST changes: -ISOVUE-M 300 61% 15ML VIAL (Q9967) As Ordered ONE; -LIDOCAINE 1% SDV INJ 30 ML VIAL As Ordered ONE; -methylPREDNISolone SUSP 40 MG/ML (DEPO-medrol) VIAL (J1030) As Ordered ONE; -oxyCODONE 5MG TAB As Ordered ONE
[2016-10-16 17:50] LABS: MEAN CORPUSCULAR HEMOGLOBIN 28.2 pg (27.0-33.0); MEAN CORPUSCULAR HGB CONC 32.5 g/dl (32.0-36.5); MEAN CORPUSCULAR VOLUME 86.9 fl (80.0-96.0); RED CELL DISTRIBUTION WIDTH 16.4 % (11.5-14.5); WHITE BLOOD COUNT 7.2 K/mm3 (4.0-10.0)
[2016-10-16 18:57] LABS: PERCENT SATURATION 8.8 % (19.7-37.4)
== END ==
LOC: M SFHCPLAZ 14:56
PROVIDERS: ATTEND Family Medicine
DX: D50.9 Iron deficiency anemia, unspecified (principal)

== ENCOUNTER → 2016-10-28 | Outpatient (CLI) | payer MEDICARE ==
--- NOTE | 2016-10-28 11:41 | REP ---
REASON: Radicular symptoms and back pain. COMPARISON: 08/24/2014. Once again, there is mild loss of disc space height posteriorly and mild universal loss of disc hydrational signal L3-4 to L5-S1 inclusive. Vertebral body height and alignment is again seen to be within normal limits. The marrow signal is within normal limits. No abnormal signal has developed in the imaged portion of the spinal cord. At the L1-2 level there is no significant change. There is no disc herniation, foraminal narrowing, or central canal stenosis. At the L2-3 level there is a broad based annular bulge status quo. Degenerative facet joint changes are again seen bilaterally status quo. Once again, minimal central canal stenosis is noted at this level which is unchanged. No acute disc extrusion has developed. At the L3-4 level there is a broad based annular bulge see in conjunction with degenerative facet joint changes bilaterally and thickening of the ligamentum flava. The factors in concert are again causing mild central canal stenosis with a flattening and straightening of the anterior thecal sac status quo. No disc extrusion or foraminal narrowing has developed. At the L4-5 level note is again made of a broad based annular bulge seen in conjunction with degenerative facet joint changes bilaterally and thickening of the ligamentum flava. A small central superiorly migrating disc extrusion is noted, the migrational component of which appears slightly increased. Degenerative facet joint changes are again seen bilaterally with thickening of the ligamentum flava and the factors in concert are again causing mild unchanged central canal stenosis. There is no foraminal narrowing. At the L5-S1 level there is a broad based annular bulge see in conjunction with a large central disc extrusion with superior migration. This has developed since the last exam. Bilateral degenerative facet joint changes are present along with thickening of the ligamentum flava status quo. There is no foraminal narrowing, however, the discogenic changes are causing moderate to severe central canal stenosis which has developed since the last exam. There is S1 nerve compression in conjunction with other compressed rootlets contained in the thecal sac due to the extruded disc. IMPRESSION: Multilevel discogenic changes with particular attention drawn to the L5-S1 level as described above. Signed by Bryant Reynolds DO 10/28/2016 02:21 P
== END ==
LOC: M RAD 06:42
PROVIDERS: ATTEND Family Medicine
DX: M54.16 Radiculopathy, lumbar region (principal); M51.37 Other intervertebral disc degeneration, lumbosacral region

== ENCOUNTER → 2016-11-06 | Outpatient (CLI) | payer MEDICARE ==
--- NOTE | 2016-12-09 02:27 | ECWPNPC ---
PATIENT NAME: KIMBERLEY VALENCIA : 1965 GENDER: MALE VISIT DATE: 11/06/2016 DISCHARGE DATE: 11/06/16 1055 VISIT LOCKED DATE TIME: PHYSICIAN: WILLIAM FREEMAN PHYSICIAN PAGER NO: TEXT HI [phone] RESOURCE: WILLIAM FREEMAN REASON FOR APPOINTMENT 1. POST MRI HISTORY OF PRESENT ILLNESS HISTORY OF PRESENT ILLNESS: HERE FOR POST PROC. F/U.HAD LESI ON 10/2016.REPORTS NO IMPROVEMENT IN PAIN POST PROCEDURE.MRI L/S SPINE 10-28-16 REVIEWED.SHOWING NEW LARGE DISC HERNIATION L5/S1.SHOWING INCREASE IN L4/5 DISC EXTRUSION.USING PERCOCET 5/325 UP TO 4 PER DAY WITH SOME IMPROVEMENT.REPORTING ONE EPISODE OF BOWEL/URINE INCONTINENCE A FEW WEEKS AGO.PATIENT IS RECEPTIVE TO SURGICAL EVALUATION.CHIEF COMPLAINT IS NECK PAIN AND BILATERAL HAND NUMBNESS AND WEAKNESS.RATING PAIN VAS 5/10. PAIN THE PATIENT DESCRIBES THE PAIN... FALL RISK SCREENING: SCREENING :NO FALLS IN THE PAST YEAR CURRENT MEDICATIONS TAKING ARTIFICIAL TEARS 0.4 % SOLUTION 1 DROP INTO AFFECTED EYE NEEDED OPHTHALMIC ONCE A DAY TAKING NEXIUM 24HR 20 MG CAPSULE DELAYED RELEASE 1 CAPSULE ORALLY ONCE A DAY TAKING TESTOSTERONE CYPIONATE 200 MG/ML OIL 0.8 ML INTRAMUSCULAR(DR KIERRA ELMORE) EVERY 10 DAYS TAKING VITAMIN D 2000 UNIT CAPSULE 1 CAPSULE ORALLY DAILY TAKING FERROUS SULFATE 325 (65 FE) MG TABLET 1 TABLET ORALLY ONCE A DAY TAKING CLONAZEPAM 0.5 MG TABLET DISPERSIBLE 1-2 TABLET ON THE TONGUE AND ALLOW TO DISSOLVE ORALLY AT BEDTIME NEEDED FOR INSOMNIA AND RESTLESS LEGS MDD:2 TAKING LEXAPRO 20 MG TABLET 1 TAB ORALLY DAILY TAKING RESTASIS 0.05 % EMULSION 1 DROP INTO AFFECTED EYE OPHTHALMIC TWICE A DAY TAKING FEXOFENADINE-PSEUDOEPHED ER 180-240 MG TABLET EXTENDED RELEASE 24 HOUR 1 TABLET ORALLY ONCE A DAY TAKING AMLODIPINE BESYLATE 5 MG TABLET 1 TABLET ORALLY ONCE A DAY TAKING ROBAXIN 500 MG TABLET 1 ORALLY BID NEEDED TAKING PERCOCET 10-325 MG TABLET 1 TABLET NEEDED ORALLY EVERY 6 HRS MDD4 TAKING FLONASE 50 MCG/DOSE INHALER 2 SPRAYS IN EACH NOSTRIL NASALLY ONCE A DAY TAKING GABAPENTIN 400 MG CAPSULE 1 CAPSULE ORALLY FOUR TIMES DAILY TAKING LISINOPRIL-HYDROCHLOROTHIAZIDE 20-25 MG TABLET 1 TABLET ORALLY ONCE A DAY MEDICATION LIST REVIEWED AND RECONCILED WITH THE PATIENT PAST MEDICAL HISTORY BACK PAIN - ([facility]) BARRETS ESOPHAGUS HYPERTENSION SLEEP APNEA [place] WITH CPAP (PULM ASSOC) HYPOTESTOSTERONEMIA (C. FISH) MAJOR DEPRESSION, SINGLE EPISODE (MANISH) ANXIETY OA (MULTIPLE LOCATIONS) ASCVD 10-YEAR RISK IS 5.3% IN 08/2016 ALLERGIES PENICILLIN (FOR ALLERGIES USE ONLY): FEET SWELLS: ALLERGY SURGICAL HISTORY TONSILLECTOMY CHILD BILATERAL CARPAL TUNNEL (FISH) 2009 EGD/COLONOSCOPY ([facility] IN [place]) 11/2011 LEFT ELBOW CUBITAL TUNNEL TRANSLATION (FISH) 2012 RIGHT CARPAL TUNNEL 07/05/13 COLO/EGD- KATHRYN-[facility]- MILD ESOPHAGITIS 05/20 HOSPITALIZATION/MAJOR DIAGNOSTIC PROCEDURE CHEST PAIN/DYSPNEA, R/O [place] ([place]) 10/15 REVIEW OF SYSTEMS REVIEWED BY: PROVIDER: WILLIAM DYE . CONSTITUTIONAL: ANY CHANGE IN YOUR MEDICAL CONDITION? NO . CHILLS NO . FEVER NO . INFECTION: DO YOU HAVE NEW INFECTIONS? NO . DO YOU HAVE HISTORY OF MRSA? NO . MUSCULOSKELETAL: ANY NEW PATTERNS OF PAIN OR NUMBNESS? YES, PAIN IS WORSE . GASTROENTEROLOGY: ANY NEW CHANGE IN BOWEL CONTROL? NO . GENITOURINARY: ANY NEW CHANGE IN BLADDER CONTROL? NO . IS THERE A CHANCE YOU COULD BE ? NO . HEMATOLOGY/LYMPH: DO YOU TAKE ANY BLOOD THINNERS? (FOR EXAMPLE- COUMADIN, PLAVIX, AGGRENOX, PLATEL, PRADAXA, OR XARELTO) NO . WHEN WAS YOUR LAST DOSE? DATE: TIME: . NEUROLOGY: HAVE YOU FALLEN IN THE PAST 6 MONTHS? YES, END OF AUGUST , PT STATES HE FELL DOWN 3 STEPS ON CONCRETE, NOT SURE WHY . ANY NEW EXTREMITY NUMBNESS OR WEAKNESS? NO . CARDIOLOGY: DO YOU HAVE A PACEMAKER OR DEFIBRILLATOR? NO . RESPIRATORY: HAVE YOU BEEN SICK IN THE PAST WEEK? NO . FEVER NO . FLU LIKE SYMPTOMS? NO . COUGH NO . INTEGUMENTARY: DO YOU HAVE ANY RASHES OR OPEN SORES? NO . ALLERGIC/IMMUNO: ARE YOU ALLERGIC TO SHELLFISH OR IV DYE? NO . ANY NEW ALLERGIES? NO . PSYCHIATRIC: DO YOU HAVE THOUGHTS OF HURTING YOURSELF OR SOMEONE ELSE? NO . ARE YOU ABUSED, NEGLECTED, OR IN AN UNSAFE ENVIRONMENT? NO . ENDOCRINOLOGY: ARE YOU DIABETIC? NO . OTHER: DO YOU NEED ANY PRESCRIPTIONS? YES, PERCOSET . IF YES, PLEASE LIST: ____ . ANY NEW PROBLEMS WITH YOUR MEDICATIONS? NO . WHEN DID YOU LAST EAT? ____ . WHEN DID YOU LAST DRINK? ____ . WHAT DID YOU LAST DRINK? ____ . NAME OF PERSON DRIVING YOU HOME? ____ . DO YOU HAVE ANY OTHER QUESTIONS OR CONCERNS NO . VITAL SIGNS WT 234.8 LBS, HT 68 IN, BMI 35.70 INDEX, BP 160/91 MM HG, HR 95 /MIN, RR 18 /MIN, TEMP 98.3 F, OXYGEN SAT % 98, NA INITIALS MP 1003, REVIEWED BY: EM. EXAMINATION GENERAL EXAMINATION: LUNGS:LUNG SOUNDS ARE CLEAR. HEART:HEART RATE REGULAR. MUSCULOSKELETAL:*,.PALPATION: POSITIVE FOR PAIN OVER L/S SPINE. POSITIVE FOR PAIN OVER L/S PARASPINALS,MUSCLE STRENGTH TESTING 5/5 RLE,3/5 LLE. DIAGNOSTIC:MRI L/S 10/2016REVIEWED W PATIENT.. CERVICAL SPINE/NECK: RANGE OF MOTION OF NECK:LIMITED LATERAL BENDING, LIMITED FLEXION AND EXTENSION. MOTOR STRENGTH:NORMAL. VERTEBRAL SPINE TENDERNESS:POSITIVE FOR PAIN OVER CERVICAL AXIS AND PARASPINAL MUSCULATURE. DIAGNOSTIC DATA-MRI C-SPINE 05-15-15-REVIEWED. ASSESSMENTS CERVICAL SPONDYLOSIS WITH RADICULOPATHY - M47.22 (PRIMARY) LUMBAR DISC HERNIATION WITH RADICULOPATHY - M51.16 CHRONIC PRESCRIPTION OPIATE USE - Z79.891 TREATMENT CERVICAL SPONDYLOSIS WITH RADICULOPATHY REFILL ROBAXIN TABLET, 500 MG, 1, ORALLY, BID NEEDED, 30 DAY(S), 45, REFILLS 1 REFILL PERCOCET TABLET, 10-325 MG, 1 TABLET NEEDED, ORALLY, EVERY 6 HRS MDD4, 30 DAY(S), 120, REFILLS 0 NOTES: JHON. [facility]:L4/5-L5/S1 HNP /LEFT LEG RADICULOPATHY PROCEDURE CODES FA211 ESTABILISHED PATIENT [facility] FACILITY CHARGE DISPOSITION & COMMUNICATION FOLLOW UP 2WK POST (REASON: JHON) ELECTRONICALLY SIGNED BY HARDIK HUSAIN ON 12/08/2016 AT 07:38 PM EDT DISCLAIMER : THIS IS A VISIT SUMMARY EXTRACTED FROM THE [employer] CHART. IT IS NOT A COPY OF THE [employer] PROGRESS NOTE. MTDD
== END ==
LOC: M PAIN 10:00
PROVIDERS: ATTEND Nurse Practitioner Family
DX: M47.22 Other spondylosis with radiculopathy, cervical region (principal); M51.16 Intervertebral disc disorders with radiculopathy, lumbar region; I10 Essential (primary) hypertension; F41.9 Anxiety disorder, unspecified; E55.9 Vitamin D deficiency, unspecified; E29.1 Testicular hypofunction; G89.4 Chronic pain syndrome; F32.9 Major depressive disorder, single episode, unspecified; K42.9 Umbilical hernia without obstruction or gangrene; G25.81 Restless legs syndrome; Q30.8 Other congenital malformations of nose; Z79.891 Long term (current) use of opiate analgesic; Z79.899 Other long term (current) drug therapy; Z88.0 Allergy status to penicillin

== ENCOUNTER → 2016-11-09 | Outpatient (CLI) | payer MEDICARE ==
[~2016-11-09] MED LIST changes: +ISOVUE-M 300 61% 15ML VIAL (Q9967) As Ordered ONE; +LIDOCAINE 1% SDV INJ 30 ML VIAL As Ordered ONE; +diazePAM 5 MG TAB As Ordered ONE; +methylPREDNISolone SUSP 40 MG/ML (DEPO-medrol) VIAL (J1030) As Ordered ONE; +oxyCODONE 5MG TAB As Ordered ONE
--- NOTE | 2016-11-09 17:47 | REP ---
FLUOROSCOPIC GUIDANCE FOR CERVICAL EPIDURAL INJECTION: 11/09/2016. Clinical history: Neck pain. Four images from fluoroscopy provided to Dr. Cedeno of the pain clinic for cervical epidural injection reviewed. Initial image shows the needle to the left of midline at the C7-T1 level. Epidural contrast is seen adjacent to it on the next two images and the needle removed for the fourth image. Fluoroscopy time: 13 seconds Signed by Lupillo Kwon MD 11/10/2016 10:24 A
--- NOTE | 2016-11-22 23:40 | ECWPNPC ---
PATIENT NAME: KIMBERLEY VALENCIA : 1965 GENDER: MALE VISIT DATE: 11/09/2016 DISCHARGE DATE: 11/09/16 1333 VISIT LOCKED DATE TIME: PHYSICIAN: OMA POWELL PHYSICIAN PAGER NO: TEXT TO [phone] RESOURCE: OMA POWELL REASON FOR APPOINTMENT 1. CE HISTORY OF PRESENT ILLNESS HISTORY OF PRESENT ILLNESS: PAIN THE PATIENT DESCRIBES THE PAIN... FALL RISK SCREENING: SCREENING :NO FALLS IN THE PAST YEAR CURRENT MEDICATIONS TAKING ARTIFICIAL TEARS 0.4 % SOLUTION 1 DROP INTO AFFECTED EYE NEEDED OPHTHALMIC ONCE A DAY, NOTES: 11-09-16599 TAKING NEXIUM 24HR 20 MG CAPSULE DELAYED RELEASE 1 CAPSULE ORALLY ONCE A DAY, NOTES: 11-09-16499 TAKING TESTOSTERONE CYPIONATE 200 MG/ML OIL 0.8 ML INTRAMUSCULAR(DR KIERRA ELMORE) EVERY 10 DAYS, NOTES: 5 DAYS AGO TAKING VITAMIN D 2000 UNIT CAPSULE 1 CAPSULE ORALLY DAILY, NOTES: 11-09-16499 TAKING CLONAZEPAM 0.5 MG TABLET DISPERSIBLE 1-2 TABLET ON THE TONGUE AND ALLOW TO DISSOLVE ORALLY AT BEDTIME NEEDED FOR INSOMNIA AND RESTLESS LEGS MDD:2, NOTES: 2 DAYS AGO TAKING LEXAPRO 20 MG TABLET 1 TAB ORALLY WEANING OFF LEXAPRO, NOTES: 11-09-16699 TAKING RESTASIS 0.05 % EMULSION 1 DROP INTO AFFECTED EYE OPHTHALMIC TWICE A DAY, NOTES: 11-09-16699 TAKING FEXOFENADINE-PSEUDOEPHED ER 180-240 MG TABLET EXTENDED RELEASE 24 HOUR 1 TABLET ORALLY ONCE A DAY, NOTES: 11-09-16499 TAKING AMLODIPINE BESYLATE 5 MG TABLET 1 TABLET ORALLY ONCE A DAY, NOTES: 11-09-16499 TAKING LISINOPRIL-HYDROCHLOROTHIAZIDE 20-25 MG TABLET 1 TABLET ORALLY ONCE A DAY, NOTES: 11-09-16499 TAKING ROBAXIN 500 MG TABLET 1 ORALLY BID NEEDED, NOTES: WEEK AGO TAKING PERCOCET 10-325 MG TABLET 1 TABLET NEEDED ORALLY EVERY 6 HRS MDD4, NOTES: 11-08-162299 TAKING FLONASE 50 MCG/DOSE INHALER 2 SPRAYS IN EACH NOSTRIL NASALLY ONCE A DAY, NOTES: 11-08-162299 TAKING FERROUS SULFATE 325 (65 FE) MG TABLET 1 TABLET ORALLY ONCE A DAY, NOTES: 11-09-16499 TAKING GABAPENTIN 400 MG CAPSULE 1 CAPSULE ORALLY THREE TIMES A DAY, NOTES: 11-09-16499 MEDICATION LIST REVIEWED AND RECONCILED WITH THE PATIENT PAST MEDICAL HISTORY BACK PAIN - ([facility]) BARRETS ESOPHAGUS HYPERTENSION SLEEP APNEA [place] WITH CPAP (PULM ASSOC) HYPOTESTOSTERONEMIA ([place]) MAJOR DEPRESSION, SINGLE EPISODE (MANISH) ANXIETY OA (MULTIPLE LOCATIONS) ASCVD 10-YEAR RISK IS 5.3% IN 08/2016 OSCAR'S ESOPHAGUS: GASTRO IN [place] ALLERGIES PENICILLIN (FOR ALLERGIES USE ONLY): FEET SWELLS: ALLERGY REVIEW OF SYSTEMS REVIEWED BY: PROVIDER: . CONSTITUTIONAL: ANY CHANGE IN YOUR MEDICAL CONDITION? NO . CHILLS NO . FEVER NO . INFECTION: DO YOU HAVE NEW INFECTIONS? NO . DO YOU HAVE HISTORY OF MRSA? NO . MUSCULOSKELETAL: ANY NEW PATTERNS OF PAIN OR NUMBNESS? NO . GASTROENTEROLOGY: ANY NEW CHANGE IN BOWEL CONTROL? NO . GENITOURINARY: ANY NEW CHANGE IN BLADDER CONTROL? NO . IS THERE A CHANCE YOU COULD BE ? NO . HEMATOLOGY/LYMPH: DO YOU TAKE ANY BLOOD THINNERS? (FOR EXAMPLE- COUMADIN, PLAVIX, AGGRENOX, PLATEL, PRADAXA, OR XARELTO) NO . WHEN WAS YOUR LAST DOSE? DATE: TIME: . NEUROLOGY: HAVE YOU FALLEN IN THE PAST 6 MONTHS? NO . ANY NEW EXTREMITY NUMBNESS OR WEAKNESS? NO . CARDIOLOGY: DO YOU HAVE A PACEMAKER OR DEFIBRILLATOR? NO . RESPIRATORY: HAVE YOU BEEN SICK IN THE PAST WEEK? NO . FEVER NO . FLU LIKE SYMPTOMS? NO . COUGH NO . INTEGUMENTARY: DO YOU HAVE ANY RASHES OR OPEN SORES? NO . ALLERGIC/IMMUNO: ARE YOU ALLERGIC TO SHELLFISH OR IV DYE? NO . ANY NEW ALLERGIES? NO . PSYCHIATRIC: DO YOU HAVE THOUGHTS OF HURTING YOURSELF OR SOMEONE ELSE? NO . ARE YOU ABUSED, NEGLECTED, OR IN AN UNSAFE ENVIRONMENT? NO . ENDOCRINOLOGY: ARE YOU DIABETIC? NO . OTHER: DO YOU NEED ANY PRESCRIPTIONS? NO . IF YES, PLEASE LIST: ____ . ANY NEW PROBLEMS WITH YOUR MEDICATIONS? NO . WHEN DID YOU LAST EAT? 11-08-16 11PM . WHEN DID YOU LAST DRINK? 11-09-16 0500 . WHAT DID YOU LAST DRINK? COFFEE . NAME OF PERSON DRIVING YOU HOME? YAMILE . DO YOU HAVE ANY OTHER QUESTIONS OR CONCERNS NO . VITAL SIGNS WT 237 LBS, HT 68 IN, BMI 36.03 INDEX, BP 137/77 MM HG, HR 98 /MIN, RR 18 /MIN, TEMP 98.0 F, OXYGEN SAT % 97%, NA INITIALS TR 1102, REVIEWED BY: CM. ASSESSMENTS CERVICAL DISC DISORDER WITH RADICULOPATHY, CERVICOTHORACIC REGION - M50.13 (PRIMARY) PROCEDURES PN CERVICAL EPIDURAL PRE PROCEDURE DIAGNOSIS CERVICAL DISC DISORDER WITH RADICULOPATHY POST PROCEDURE DIAGNOSIS CERVICAL DISC DISORDER WITH RADICULOPATHY PROCEDURE CERVICAL EPIDURAL STEROID INJECTION UNDER FLUOROSCOPIC GUIDANCE SURGEON DR. OMA POWELL ENDLESS BELT FINISHER NONE ANESTHESIA LOCAL PRE PROCEDURE NOTE THE PATIENT HAS A HISTORY OF CHRONIC CERVICAL PAIN. I EVALUATE THE PATIENT AND REVIEWED THE CHART. I WENT OVER THE RISKS, ALTERNATIVES, AND BENEFITS ASSOCIATED WITH THIS PROCEDURE. THE PATIENT WOULD LIKE TO PROCEED AND GIVE CONSENT TO PERFORMED THE PROCEDURE. THE PATIENT DENIES UNEXPLAINABLE WEIGHT LOSS, FEVER, CHILLS, OR NEW CHANGES IN URINARY OR BOWEL CONTROL DESCRIPTION OF PROCEDURE THE PATIENT WAS BROUGHT TO THE PROCEDURE ROOM AND PLACED IN THE PRONE POSITION. THE CERVICOTHORACIC AREA WAS CLEANED WITH BETADINE SOLUTION AND DRAPED ASEPTICALLY. THE PROCEDURE WAS DONE UNDER STERILE CONDITIONS. I CHECKED LATERALITY AND THE LEVEL WHERE THE PROCEDURE WAS GOING TO BE PERFORMED WITH THE PATIENT AND THE SUPPORTING STAFF AT THE MOMENT OF THE TIME OUT IN THE PROCEDURE ROOM. UNDER FLUOROSCOPIC GUIDANCE, THE TARGET WAS SELECTED AT THE INTERLAMINAR LEVEL OF C7-T1. LIDOCAINE WAS USED TO NUMB THE SKIN AND THE SUBCUTANEOUS TISSUE BELOW IT. EPIDURAL TUOHY NEEDLE 17-GAUGE WAS ADVANCED UNDER FLUOROSCOPIC GUIDANCE AND FOLLOWING PATIENT FEEDBACK UNTIL THE EPIDURAL SPACE WAS REACHED 10 CM DEEP INTO THE SKIN BY THE LOSS OF RESISTANCE TECHNIQUE. ISOVUE M DYE 30%, 0.25 ML, WAS INJECTED SHOWING ADEQUATE SPREAD OF THE DYE. THEN, A SOLUTION OF 3 ML OF NORMAL SALINE WITH DEPO-MEDROL 60 MG WAS INJECTED SLOWLY FOLLOWING PATIENT FEEDBACK. THERE WAS NO EVIDENCE OF BLOOD, PARESTHESIA OR CEREBROSPINAL FLUID DURING THE PROCEDURE. THE PATIENT WAS SENT TO THE RECOVERY ROOM. THE PATIENT WAS MOVING THE EXTREMITIES AND DOING WELL. THERE WAS NO COMPLICATION DURING THE PROCEDURE. FLUOROSCOPY TIME WAS 13 SECONDS POST PROCEDURE NOTE THE PATIENT WILL BE SEEN IN A FOLLOW UP IN THE NEXT FEW WEEKS. INSTRUCTIONS WERE GIVEN, QUESTIONS WERE ANSWERED, AND THE PATIENT EXPRESSED UNDERSTANDING AND AGREES WITH THE PLAN. IRANDALL, DOCUMENTED THE ABOVE INFORMATION ACTING A SCRIBE FOR DR. POWELL. I HAVE REVIEWED THE ABOVE DOCUMENT, WRITTEN BY RANDALL LANTIGUA SCRIBE AND I VERIFY THAT IT IS ACCURATE DIAGNOSTIC IMAGING [facility] FLUORO GUIDE SPINE INJECTION (PAIN)[id number] PROCEDURE CODES 92263 CERVICAL/THORACIC W/ IMAGING 6045F RADXPS IN END [id number] PXD DISPOSITION & COMMUNICATION FOLLOW UP 3 WEEKS ELECTRONICALLY SIGNED BY OMA POWELL MD ON 11/22/2016 AT 03:56 PM EDT DISCLAIMER : THIS IS A VISIT SUMMARY EXTRACTED FROM THE [employer] CHART. IT IS NOT A COPY OF THE [employer] PROGRESS NOTE. MTDD
== END ==
LOC: M PAIN 10:45
PROVIDERS: ATTEND Anesthesiology
DX: G89.29 Other chronic pain (principal); M50.13 Cervical disc disorder with radiculopathy, cervicothoracic region; F32.9 Major depressive disorder, single episode, unspecified; D50.9 Iron deficiency anemia, unspecified; E55.9 Vitamin D deficiency, unspecified; I10 Essential (primary) hypertension; G25.81 Restless legs syndrome; Z79.899 Other long term (current) drug therapy; Z88.0 Allergy status to penicillin; Z79.891 Long term (current) use of opiate analgesic
CPT/HCPCS: 62321; J1030; Q9967

== ENCOUNTER → 2016-12-31 | Outpatient (CLI) | payer MEDICARE ==
[~2016-12-31] MED LIST changes: -ISOVUE-M 300 61% 15ML VIAL (Q9967) As Ordered ONE; -LIDOCAINE 1% SDV INJ 30 ML VIAL As Ordered ONE; -diazePAM 5 MG TAB As Ordered ONE; -methylPREDNISolone SUSP 40 MG/ML (DEPO-medrol) VIAL (J1030) As Ordered ONE; -oxyCODONE 5MG TAB As Ordered ONE
--- NOTE | 2017-01-20 00:46 | ECWPNPC ---
PATIENT NAME: KIMBERLEY VALENCIA : 1965 GENDER: MALE VISIT DATE: 12/31/2016 DISCHARGE DATE: 12/31/16 1217 VISIT LOCKED DATE TIME: PHYSICIAN: WILLIAM FREEMAN PHYSICIAN PAGER NO: TEXT CF [phone] RESOURCE: WILLIAM FREEMAN REASON FOR APPOINTMENT 1. POST CE HISTORY OF PRESENT ILLNESS HISTORY OF PRESENT ILLNESS: HERE FOR POST PROC. F/U.HAD JHON ON .REPORTS SIGNIFICANT IMPROVEMENT IN PAIN POST PROCEDURE.[id number] IMPROVED MOBILITY.REPORTING LESS SHOULDER PAIN SINCE INJECTION.MRI L/S SPINE 10-28-16 REVIEWED.SHOWING NEW LARGE DISC HERNIATION L5/S1.SHOWING INCREASE IN L4/5 DISC EXTRUSION.USING PERCOCET 5/325 UP TO 4 PER DAY WITH SOME IMPROVEMENT.REPORTING ONE EPISODE OF BOWEL/URINE INCONTINENCE A FEW WEEKS AGO.PATIENT HAD SURGICAL EVALUATION AND HAS BEEN OFFERED SURGERY.RATING PAIN VAS 5/10. PAIN THE PATIENT DESCRIBES THE PAIN... THE PATIENT DESCRIBES THE PAIN... FALL RISK SCREENING: SCREENING :NO FALLS IN THE PAST YEAR CURRENT MEDICATIONS TAKING ARTIFICIAL TEARS 0.4 % SOLUTION 1 DROP INTO AFFECTED EYE NEEDED OPHTHALMIC ONCE A DAY TAKING NEXIUM 24HR 20 MG CAPSULE DELAYED RELEASE 1 CAPSULE ORALLY ONCE A DAY TAKING TESTOSTERONE CYPIONATE 200 MG/ML OIL 0.8 ML INTRAMUSCULAR(DR KIERRA ELMORE) EVERY 10 DAYS TAKING VITAMIN D 2000 UNIT CAPSULE 1 CAPSULE ORALLY DAILY TAKING LEXAPRO 20 MG TABLET 1 TAB ORALLY ONCE A DAY TAKING RESTASIS 0.05 % EMULSION 1 DROP INTO AFFECTED EYE OPHTHALMIC TWICE A DAY TAKING FEXOFENADINE-PSEUDOEPHED ER 180-240 MG TABLET EXTENDED RELEASE 24 HOUR 1 TABLET ORALLY ONCE A DAY TAKING AMLODIPINE BESYLATE 5 MG TABLET 1 TABLET ORALLY ONCE A DAY TAKING LISINOPRIL-HYDROCHLOROTHIAZIDE 20-25 MG TABLET 1 TABLET ORALLY ONCE A DAY TAKING ROBAXIN 500 MG TABLET 1 ORALLY BID NEEDED TAKING FLONASE 50 MCG/DOSE INHALER 2 SPRAYS IN EACH NOSTRIL NASALLY ONCE A DAY TAKING FERROUS SULFATE 325 (65 FE) MG TABLET 1 TABLET ORALLY ONCE A DAY TAKING GABAPENTIN 400 MG CAPSULE 1 CAPSULE ORALLY THREE TIMES A DAY TAKING CLONAZEPAM 0.5 MG TABLET DISPERSIBLE 1-2 TABLET ON THE TONGUE AND ALLOW TO DISSOLVE ORALLY AT BEDTIME NEEDED FOR INSOMNIA AND RESTLESS LEGS MDD:2 TAKING PERCOCET 10-325 MG TABLET 1 TABLET NEEDED ORALLY EVERY 6 HRS MDD4 TAKING DESHAWN 180 MG TABLET 1 TABLET NEEDED ORALLY ONCE A DAY DISCONTINUED NASONEX 50 MCG/ACT SUSPENSION 2 SPRAYS IN EACH NOSTRIL NASALLY ONCE A DAY MEDICATION LIST REVIEWED AND RECONCILED WITH THE PATIENT PAST MEDICAL HISTORY BACK PAIN - ([facility]) BARRETS ESOPHAGUS HYPERTENSION SLEEP APNEA [place] WITH CPAP (PULM ASSOC) HYPOTESTOSTERONEMIA (C. FISH) MAJOR DEPRESSION, SINGLE EPISODE (MANISH) ANXIETY OA (MULTIPLE LOCATIONS) ASCVD 10-YEAR RISK IS 5.3% IN 08/2016 OSCAR'S ESOPHAGUS: GASTRO IN [place] ALLERGIES PENICILLIN (FOR ALLERGIES USE ONLY): FEET SWELLS: ALLERGY SURGICAL HISTORY TONSILLECTOMY CHILD BILATERAL CARPAL TUNNEL (FISH) 2009 EGD/COLONOSCOPY ([facility] IN [place]) 11/2011 LEFT ELBOW CUBITAL TUNNEL TRANSLATION (FISH) 2012 RIGHT CARPAL TUNNEL 07/05/13 COLO/EGD- [facility]- MILD ESOPHAGITIS 05/20 SOCIAL HISTORY GENERAL: TOBACCO USE ARE YOU A:NONSMOKER MANDAEISM [id number] JEWISH LANGUAGE LANGUAGES SPOKEN:CAMEROONIAN EDUCATION LEVEL OF EDUCATION:HIGH SCHOOL LEARNING BARRIERS / SPECIAL NEEDS CHANGE FROM LAST VISIT?YES BARRIERS TO LEARNING?NO HEARING IMPAIRED?YES :HEARING AIDES C/O INCREASED HEARING LOSS VISION IMPAIRED?NO COGNITIVELY IMPAIRED?NO READINESS TO LEARN?YES LEARNING PREFERENCES?NO LEARNING CAPABILITIES PRESENT?YES EMOTIONAL BARRIERS?NO SPECIAL DEVICES?NO QUALITY SYSTEMS ENGINEER NEEDED?NO PAIN CLINIC PFS, CLERGY, PUBLIC HEALTH REFERRALS PFS REFERRAL NEEDED?NO CLERGY REFERRAL NEEDED?NO PUBLIC HEALTH REFERRAL NEEDED?NO WAS THE PROVIDER NOTIFIED OF ANY PERTINENT INFO?NO HAS THE PATIENT BEEN EDUCATED REGARDING HIS/HER PLAN OF CARE?YES HAS THE PATIENT BEEN EDUCATED REGARDING PAIN, THE RISK FOR PAIN, THE IMPORTANCE OF EFFECTIVE PAIN MANAGEMENT, AND THE PAIN ASSESSMENT PROCESS?YES PATIENT: ____. ADVANCE DIRECTIVES HEALTH CARE PROXY?YES NAME OF HCP LAUREL VALENCIA CONTACT # FOR HCP [phone] DO YOU HAVE A COPY WITH YOU? NO STATES HAS ALREADY BROUGHT IN A COPY DO YOU HAVE A DNR?NO WOULD YOU LIKE MORE INFORMATION?NO LIVING WILL?NO WOULD YOU LIKE MORE INFORMATION?NO POWER OF BRIEFCASE SEWER?NO WOULD YOU LIKE MORE INFORMATION?NO HOSPITALIZATION/MAJOR DIAGNOSTIC PROCEDURE CHEST PAIN/DYSPNEA, R/O [place] ([place]) 10/15 REVIEW OF SYSTEMS REVIEWED BY: PROVIDER: WILLIAM DYE . CONSTITUTIONAL: ANY CHANGE IN YOUR MEDICAL CONDITION? NO . CHILLS NO . FEVER NO . INFECTION: DO YOU HAVE NEW INFECTIONS? NO . DO YOU HAVE HISTORY OF MRSA? NO . MUSCULOSKELETAL: ANY NEW PATTERNS OF PAIN OR NUMBNESS? NO . GASTROENTEROLOGY: ANY NEW CHANGE IN BOWEL CONTROL? NO . GENITOURINARY: ANY NEW CHANGE IN BLADDER CONTROL? NO . IS THERE A CHANCE YOU COULD BE ? NO . HEMATOLOGY/LYMPH: DO YOU TAKE ANY BLOOD THINNERS? (FOR EXAMPLE- COUMADIN, PLAVIX, AGGRENOX, PLATEL, PRADAXA, OR XARELTO) NO . WHEN WAS YOUR LAST DOSE? DATE: TIME: . NEUROLOGY: HAVE YOU FALLEN IN THE PAST 6 MONTHS? NO . ANY NEW EXTREMITY NUMBNESS OR WEAKNESS? NO . CARDIOLOGY: DO YOU HAVE A PACEMAKER OR DEFIBRILLATOR? NO . RESPIRATORY: HAVE YOU BEEN SICK IN THE PAST WEEK? NO . FEVER NO . FLU LIKE SYMPTOMS? NO . COUGH NO . INTEGUMENTARY: DO YOU HAVE ANY RASHES OR OPEN SORES? NO . ALLERGIC/IMMUNO: ARE YOU ALLERGIC TO SHELLFISH OR IV DYE? NO . ANY NEW ALLERGIES? NO . PSYCHIATRIC: DO YOU HAVE THOUGHTS OF HURTING YOURSELF OR SOMEONE ELSE? NO . ARE YOU ABUSED, NEGLECTED, OR IN AN UNSAFE ENVIRONMENT? NO . ENDOCRINOLOGY: ARE YOU DIABETIC? NO . OTHER: DO YOU NEED ANY PRESCRIPTIONS? YES . IF YES, PLEASE LIST: PERCOCET 10 . ANY NEW PROBLEMS WITH YOUR MEDICATIONS? NO . WHEN DID YOU LAST EAT? ____ . WHEN DID YOU LAST DRINK? ____ . WHAT DID YOU LAST DRINK? ____ . NAME OF PERSON DRIVING YOU HOME? ____ . DO YOU HAVE ANY OTHER QUESTIONS OR CONCERNS NO . VITAL SIGNS WT 233.2 LBS, HT 68 IN, BMI 35.45 INDEX, BP 152/87 MM HG, HR 96 /MIN, RR 16 /MIN, TEMP 98.7 F, OXYGEN SAT % 99%, REVIEWED BY: JENELLE. EXAMINATION GENERAL EXAMINATION: LUNGS:LUNG SOUNDS ARE CLEAR. HEART:HEART RATE REGULAR. MUSCULOSKELETAL:*,.PALPATION: POSITIVE FOR PAIN OVER L/S SPINE.POSITIVE FOR PAIN WITH FACET LOADING OVER L4/5-L5/S1 FACETS. POSITIVE FOR PAIN OVER L/S PARASPINALS,MUSCLE STRENGTH TESTING 5/5 RLE,3/5 LLE.. DIAGNOSTIC:MRI L/S 10/2016REVIEWED W PATIENT.. CERVICAL SPINE/NECK: RANGE OF MOTION OF NECK:NORMAL IN ALL DIRECTIONS. MOTOR STRENGTH:NORMAL. DIAGNOSTIC DATA-MRI C-SPINE 05-15-15-REVIEWED. 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 BRINGS IN MEDICATIONS WHICH IS APPROPRIATE FOR WHAT WAS DISPENSED. RECENT URINE TOXICOLOGY REVIEWED. NO UNAUTHORIZED MEDICATIONS. NO ILLICIT SUBSTANCES AND PRESCRIBED MEDICATIONS WERE PRESENT. BILAT L4/5-L5/S1 THERAPEUTIC BLOCK. PREVENTIVE MEDICINE THERAPEUTIC LUMBAR FACET TEACHING REVIEWED WITH PT. PROCEDURE CODES FA211 ESTABILISHED PATIENT [facility] CHARGE G8730 PAIN ASSESS POS TOOL F/U PLAN DOC G8427 DOC MEDS VERIFIED W/PT OR RE DISPOSITION & COMMUNICATION FOLLOW UP 2WK POST (REASON: BILAT L4/5-L5/S1 THERAPEUTIC BLOCK) ELECTRONICALLY SIGNED BY HARDIK HUSAIN ON 01/19/2017 AT 08:53 AM EDT DISCLAIMER : THIS IS A VISIT SUMMARY EXTRACTED FROM THE [employer] CHART. IT IS NOT A COPY OF THE [employer] PROGRESS NOTE. MTDD
== END ==
LOC: M PAIN 11:15
PROVIDERS: ATTEND Nurse Practitioner Family
DX: M47.22 Other spondylosis with radiculopathy, cervical region (principal); M51.16 Intervertebral disc disorders with radiculopathy, lumbar region; I10 Essential (primary) hypertension; F41.8 Other specified anxiety disorders; G25.81 Restless legs syndrome; E29.1 Testicular hypofunction; J30.2 Other seasonal allergic rhinitis; Z79.891 Long term (current) use of opiate analgesic; Z79.899 Other long term (current) drug therapy; Z88.0 Allergy status to penicillin

== ENCOUNTER → 2017-01-12 | Outpatient (CLI) | payer MEDICARE ==
[~2017-01-12] MED LIST changes: +BUPIVACAINE HCL 0.25% 30 ML VIAL As Ordered ONE; +ISOVUE-M 300 61% 15ML VIAL (Q9967) As Ordered ONE; +LIDOCAINE 1% SDV INJ 30 ML VIAL As Ordered ONE; +TRIAMCINOLONE ACETONIDE SUSP 40 MG/ML VIAL (J3301) As Ordered ONE; +diazePAM 5 MG TAB As Ordered ONE; +oxyCODONE 5MG TAB As Ordered ONE
--- NOTE | 2017-01-12 12:37 | REP ---
Partial lumbar spine series: Two views . History: Injection procedure for pain. 29 seconds of fluoroscopy time is reported. Findings: A sequence of two fluoroscopically obtained last image hold procedural spot radiographs of the lumbar spine document needle position and contrast injection associated with injection procedure. Signed by Kamran Kirk MD 01/12/2017 12:29 P
--- NOTE | 2017-01-13 23:28 | ECWPNPC ---
PATIENT NAME: KIMBERLEY VALENCIA : 1965 GENDER: MALE VISIT DATE: 01/12/2017 DISCHARGE DATE: 01/12/17 1243 VISIT LOCKED DATE TIME: PHYSICIAN: OMA POWELL PHYSICIAN PAGER NO: TEXT TO [phone] RESOURCE: OMA POWELL REASON FOR APPOINTMENT 1. BILATERAL THER. FACET HISTORY OF PRESENT ILLNESS HISTORY OF PRESENT ILLNESS: PAIN THE PATIENT DESCRIBES THE PAIN... FALL RISK SCREENING: SCREENING :NO FALLS IN THE PAST YEAR CURRENT MEDICATIONS TAKING ARTIFICIAL TEARS 0.4 % SOLUTION 1 DROP INTO AFFECTED EYE NEEDED OPHTHALMIC ONCE A DAY, NOTES: 01/11/172099 TAKING NEXIUM 24HR 20 MG CAPSULE DELAYED RELEASE 1 CAPSULE ORALLY ONCE A DAY, NOTES: 01/11/172099 TAKING TESTOSTERONE CYPIONATE 200 MG/ML OIL 0.8 ML INTRAMUSCULAR(DR KIERRA ELMORE) EVERY 10 DAYS, NOTES: 01/11/172099 TAKING VITAMIN D 2000 UNIT CAPSULE 1 CAPSULE ORALLY DAILY, NOTES: 01/11/171199 TAKING LEXAPRO 20 MG TABLET 1 TAB ORALLY ONCE A DAY, NOTES: 01/11/171199 TAKING RESTASIS 0.05 % EMULSION 1 DROP INTO AFFECTED EYE OPHTHALMIC TWICE A DAY, NOTES: 01/11/172099 TAKING AMLODIPINE BESYLATE 5 MG TABLET 1 TABLET ORALLY ONCE A DAY, NOTES: 01/11/171199 TAKING LISINOPRIL-HYDROCHLOROTHIAZIDE 20-25 MG TABLET 1 TABLET ORALLY ONCE A DAY, NOTES: 01/11/171199 TAKING ROBAXIN 500 MG TABLET 1 ORALLY BID NEEDED, NOTES: > 2 WEEKS TAKING FLONASE 50 MCG/DOSE INHALER 2 SPRAYS IN EACH NOSTRIL NASALLY ONCE A DAY, NOTES: 01/11/172099 TAKING FERROUS SULFATE 325 (65 FE) MG TABLET 1 TABLET ORALLY ONCE A DAY, NOTES: 01/11/171199 TAKING CLONAZEPAM 0.5 MG TABLET DISPERSIBLE 1-2 TABLET ON THE TONGUE AND ALLOW TO DISSOLVE ORALLY AT BEDTIME NEEDED FOR INSOMNIA AND RESTLESS LEGS MDD:2, NOTES: 01/11/172099 TAKING GABAPENTIN 400 MG CAPSULE 1 CAPSULE ORALLY THREE TIMES A DAY, NOTES: 01/11/172099 TAKING PERCOCET 10-325 MG TABLET 1 TABLET NEEDED ORALLY EVERY 6 HRS MDD4, NOTES: 01/11/172299 NOT-TAKING FEXOFENADINE-PSEUDOEPHED ER 180-240 MG TABLET EXTENDED RELEASE 24 HOUR 1 TABLET ORALLY ONCE A DAY NOT-TAKING DESHAWN 180 MG TABLET 1 TABLET NEEDED ORALLY ONCE A DAY MEDICATION LIST REVIEWED AND RECONCILED WITH THE PATIENT PAST MEDICAL HISTORY BACK PAIN - ([facility]) BARRETS ESOPHAGUS HYPERTENSION SLEEP APNEA [place] WITH CPAP (PULM ASSOC) HYPOTESTOSTERONEMIA (C. FISH) MAJOR DEPRESSION, SINGLE EPISODE (MANISH) ANXIETY OA (MULTIPLE LOCATIONS) ASCVD 10-YEAR RISK IS 5.3% IN 08/2016 OSCAR'S ESOPHAGUS: GASTRO IN [place] ALLERGIES PENICILLIN (FOR ALLERGIES USE ONLY): FEET SWELLS: ALLERGY REVIEW OF SYSTEMS REVIEWED BY: PROVIDER: . CONSTITUTIONAL: ANY CHANGE IN YOUR MEDICAL CONDITION? NO . CHILLS NO . FEVER NO . INFECTION: DO YOU HAVE NEW INFECTIONS? NO . DO YOU HAVE HISTORY OF MRSA? NO . MUSCULOSKELETAL: ANY NEW PATTERNS OF PAIN OR NUMBNESS? NO . GASTROENTEROLOGY: ANY NEW CHANGE IN BOWEL CONTROL? NO . GENITOURINARY: ANY NEW CHANGE IN BLADDER CONTROL? NO . IS THERE A CHANCE YOU COULD BE ? NO . HEMATOLOGY/LYMPH: DO YOU TAKE ANY BLOOD THINNERS? (FOR EXAMPLE- COUMADIN, PLAVIX, AGGRENOX, PLATEL, PRADAXA, OR XARELTO) NO . WHEN WAS YOUR LAST DOSE? DATE: TIME: . NEUROLOGY: HAVE YOU FALLEN IN THE PAST 6 MONTHS? NO . ANY NEW EXTREMITY NUMBNESS OR WEAKNESS? NO . CARDIOLOGY: DO YOU HAVE A PACEMAKER OR DEFIBRILLATOR? NO . RESPIRATORY: HAVE YOU BEEN SICK IN THE PAST WEEK? NO . FEVER NO . FLU LIKE SYMPTOMS? NO . COUGH NO . INTEGUMENTARY: DO YOU HAVE ANY RASHES OR OPEN SORES? NO . ALLERGIC/IMMUNO: ARE YOU ALLERGIC TO SHELLFISH OR IV DYE? NO . ANY NEW ALLERGIES? NO . PSYCHIATRIC: DO YOU HAVE THOUGHTS OF HURTING YOURSELF OR SOMEONE ELSE? NO . ARE YOU ABUSED, NEGLECTED, OR IN AN UNSAFE ENVIRONMENT? NO . ENDOCRINOLOGY: ARE YOU DIABETIC? NO . OTHER: DO YOU NEED ANY PRESCRIPTIONS? NO . IF YES, PLEASE LIST: ____ . ANY NEW PROBLEMS WITH YOUR MEDICATIONS? NO . WHEN DID YOU LAST EAT? ____01/11/170 . WHEN DID YOU LAST DRINK? ____01/11/172399 . WHAT DID YOU LAST DRINK? ____WATER . NAME OF PERSON DRIVING YOU HOME? ____LAUREL VALENCIA . DO YOU HAVE ANY OTHER QUESTIONS OR CONCERNS NO . VITAL SIGNS WT 232 LBS, HT 68 IN, BMI 35.27 INDEX, BP 140/83 MM HG, HR 78 /MIN, RR 18 /MIN, TEMP 97.9 F, OXYGEN SAT % 96%, SAFE IN ENV? (Y/N) YES, REVIEWED BY: LAS. PEREZ SPONDYLOSIS OF LUMBAR REGION WITHOUT MYELOPATHY OR RADICULOPATHY - M47.816 (PRIMARY) SPONDYLOSIS OF LUMBOSACRAL REGION WITHOUT MYELOPATHY OR RADICULOPATHY - M47.817 PROCEDURES PN LUMBAR FACET BLOCK THERAPEUTIC PRE PROCEDURE DIAGNOSIS LUMBAR SPONDYLOSIS, LUMBOSACRAL SPONDYLOSIS POST PROCEDURE DIAGNOSIS LUMBAR SPONDYLOSIS, LUMBOSACRAL SPONDYLOSIS PROCEDURE BILATERAL L4-L5 AND BILATERAL L5-S1 LUMBAR FACET THERAPEUTIC BLOCK SURGEON DR. OMA POWELL CERTIFIED LOW VISION THERAPIST NONE ANESTHESIA LOCAL PRE PROCEDURE NOTE THE PATIENT HAS A HISTORY OF CHRONIC LOW BACK PAIN. I EVALUATE THE PATIENT AND REVIEWED THE CHART. I WENT OVER THE RISKS, ALTERNATIVES, AND BENEFITS ASSOCIATED WITH THIS PROCEDURE. THE PATIENT WOULD LIKE TO PROCEED AND GIVE CONSENT TO PERFORMED THE PROCEDURE. THE PATIENT DENIES UNEXPLAINABLE WEIGHT LOSS, FEVER, CHILLS, OR NEW CHANGES IN URINARY OR BOWEL CONTROL DESCRIPTION OF PROCEDURE THE PATIENT WAS BROUGHT TO THE PROCEDURE ROOM AND PLACED IN THE PRONE POSITION. THE LUMBOSACRAL AREA WAS CLEANED WITH CHLORAPREP SOLUTION AND DRAPED ASEPTICALLY. THE PROCEDURE WAS DONE UNDER STERILE CONDITIONS. I CHECKED LATERALITY AND THE LEVEL WHERE THE PROCEDURE WAS GOING TO BE PERFORMED WITH THE PATIENT AND THE SUPPORTING STAFF AT THE MOMENT OF THE TIME OUT IN THE PROCEDURE ROOM. UNDER FLUOROSCOPIC GUIDANCE, THE TARGET POINT WAS SELECTED AT THE RIGHT AND LEFT L4-L5 AND RIGHT AND LEFT L5-S1 FACET JOINT. TARGET POINT WAS SELECTED AFTER LATERAL ROTATION AND TILT OF THE MAGNIFIER OF THE C-ARM. LIDOCAINE 0.5% WAS USED TO NUMB THE SKIN AND THE SUBCUTANEOUS TISSUE BELOW IT. SPINAL NEEDLES, 22-GAUGE, WERE ADVANCED UNDER FLUOROSCOPIC GUIDANCE AND FOLLOWING PATIENT FEEDBACK UNTIL THE TARGETS WERE TOUCHED. THE POSITION OF THE NEEDLES WAS VERIFIED WITH AP AND LATERAL VIEWS. AFTER PROPER POSITION OF THE NEEDLES WAS ACHIEVED, ISOVUE-M DYE 30% 0.1 ML WAS INJECTED SHOWING ADEQUATE SPREAD OF THE DYE. THEN A SOLUTION OF 1.9 ML OF BUPIVACAINE 0.125% OF KENALOG 10 MG WAS INJECTED AT EACH SITE. THERE WAS NO EVIDENCE OF BLOOD, PARESTHESIA OR CEREBROSPINAL FLUID DURING THE PROCEDURE. THE PATIENT WAS SENT TO THE RECOVERY ROOM. THE PATIENT WAS MOVING THE EXTREMITIES AND DOING WELL. THERE WAS NO COMPLICATION DURING THE PROCEDURE. FLUOROSCOPY TIME WAS 29 SECONDS POST PROCEDURE NOTE THE PATIENT WILL BE SEEN IN A FOLLOW UP IN THE NEXT FEW WEEKS. INSTRUCTIONS WERE GIVEN, QUESTIONS WERE ANSWERED, AND THE PATIENT EXPRESSED UNDERSTANDING AND AGREES WITH THE PLAN. I, RANDALL LANTIGUA, DOCUMENTED THE ABOVE INFORMATION ACTING A SCRIBE FOR DR. POWELL. I HAVE REVIEWED THE ABOVE DOCUMENT, WRITTEN BY RANDALL LANTIUGA SCRIBE AND I VERIFY THAT IT IS ACCURATE DIAGNOSTIC IMAGING [facility] FACET BLOCK (PAIN)[id number] PROCEDURE CODES 17913 INJ PARAVERT F JNT L/S 1 LEV, MODIFIERS: 50 08511 INJ PARAVERT F JNT L/S 2 LEV, MODIFIERS: 50 [id number] RADXPS IN END [id number] PXD DISPOSITION & COMMUNICATION FOLLOW UP 3 WEEKS ELECTRONICALLY SIGNED BY OMA POWELL MD ON 01/13/2017 AT 12:57 PM EDT DISCLAIMER : THIS IS A VISIT SUMMARY EXTRACTED FROM THE [employer] CHART. IT IS NOT A COPY OF THE [employer] PROGRESS NOTE. MTDD
== END ==
LOC: M PAIN 11:00
PROVIDERS: ATTEND Anesthesiology
DX: G89.29 Other chronic pain (principal); M47.816 Spondylosis without myelopathy or radiculopathy, lumbar region; M47.817 Spondylosis without myelopathy or radiculopathy, lumbosacral region; M54.5 Low back pain; I10 Essential (primary) hypertension; G47.30 Sleep apnea, unspecified; Z79.891 Long term (current) use of opiate analgesic; Z79.899 Other long term (current) drug therapy; Z88.0 Allergy status to penicillin
CPT/HCPCS: 64493; 64494; J3301; Q9967

== ENCOUNTER → 2017-01-15 | Outpatient (CLI) | payer MEDICARE ==
[~2017-01-15] MED LIST changes: -BUPIVACAINE HCL 0.25% 30 ML VIAL As Ordered ONE; -ISOVUE-M 300 61% 15ML VIAL (Q9967) As Ordered ONE; -LIDOCAINE 1% SDV INJ 30 ML VIAL As Ordered ONE; -TRIAMCINOLONE ACETONIDE SUSP 40 MG/ML VIAL (J3301) As Ordered ONE; -diazePAM 5 MG TAB As Ordered ONE; -oxyCODONE 5MG TAB As Ordered ONE
[2017-01-15 12:41] LABS: BLOOD UREA NITROGEN 16 MG/DL (7-18); CREATININE FOR GFR 0.96 MG/DL (0.70-1.30); GLOMERULAR FILTRATION RATE > 60.0 (>56)
== END ==
LOC: M LAB 11:18
PROVIDERS: ATTEND Otolaryngology
DX: H90.3 Sensorineural hearing loss, bilateral (principal); G43.019 Migraine without aura, intractable, without status migrainosus

== ENCOUNTER → 2017-01-18 | Outpatient (CLI) | payer MEDICARE ==
[~2017-01-18] MED LIST changes: +PROHANCE 279.3MG/ML 15ML VIAL (A9576) As Ordered ONE; +PROHANCE 279.3MG/ML 5ML VIAL (A9576) As Ordered ONE
--- NOTE | 2017-01-18 14:50 | REP ---
BOO IACS WITHOUT AND WITH CONTRAST: HISTORY: Bilateral hearing loss. CONTRAST: ProHance 20 mL. An area of increased signal intensity on T2-weighted images is present in the right thalamus. This represents an old lacunar infarction. Several punctate areas of increased signal intensity on T2-weighted images are present in the periventricular and subcortical white matter. This represents small vessel ischemic disease. There is no intraparenchymal hemorrhage, acute infarct, mass or midline shift. There is no abnormal enhancement. The ventricular system is normal in appearance. There is no extracerebral collection. There is no cerebellopontine angle mass. The inner ear structures are normal in appearance. The mastoid air cells are clear. Mucosal thickening is present in the maxillary sinuses. IMPRESSION: 1. Old right thalamic lacunar infarction. 2. Minimal small vessel ischemic disease. Signed by Tyler Bonilla MD 01/18/2017 02:53 P
== END ==
LOC: M RAD 12:57
PROVIDERS: ATTEND Otolaryngology
DX: H90.3 Sensorineural hearing loss, bilateral (principal)
CPT/HCPCS: 70553; A9576

== ENCOUNTER → 2017-01-28 | Outpatient (REF) | payer MEDICARE ==
[~2017-01-28] MED LIST changes: -PROHANCE 279.3MG/ML 15ML VIAL (A9576) As Ordered ONE; -PROHANCE 279.3MG/ML 5ML VIAL (A9576) As Ordered ONE
[2017-01-28 19:40] LABS: ALBUMIN 4.1 GM/DL (3.2-5.2); ALBUMIN/GLOBULIN RATIO 1.41 (1.00-1.93); ALKALINE PHOSPHATASE 58 U/L (45-117); ALT/SGPT 57 U/L (12-78); ANION GAP 8 MEQ/L (8-16); AST/SGOT 25 U/L (15-37); BILIRUBIN,TOTAL 0.4 MG/DL (0.2-1.0); BLOOD UREA NITROGEN 28 MG/DL (7-18); CALCIUM LEVEL 8.5 MG/DL (8.5-10.1); CARBON DIOXIDE LEVEL 27 MEQ/L (21-32); CHLORIDE LEVEL 102 MEQ/L (98-107); CREATININE FOR GFR 1.07 MG/DL (0.70-1.30); GLOMERULAR FILTRATION RATE > 60.0 (>56); GLUCOSE, FASTING 110 MG/DL (70-105); SODIUM LEVEL 137 MEQ/L (136-145)
[2017-01-28 20:15] LABS: BASO % 0.4 % (0.0-1.0); EOS # 0.1 10^3/uL (0.0-0.50); EOS % 1.3 % (0.0-3.0); IMMATURE GRANULOCYTE % 0.5 % (0-0); LYMPH # 2.2 10^3/uL (1.5-4.5); LYMPH % 19.8 % (24.0-44.0); MEAN CORPUSCULAR VOLUME 90.5 fl (80.0-96.0); MONO % 8.7 % (0.0-5.0); NEUTROPHILS # 7.6 10^3/uL (1.8-7.7); NEUTROPHILS % 69.3 % (36.0-66.0); PLATELET COUNT, AUTOMATED 259 10^3/uL (150-450); RED CELL DISTRIBUTION WIDTH 15.2 % (11.5-14.5)
== END ==
LOC: M SFHCPLAZ 14:42
PROVIDERS: ATTEND Nurse Practitioner Family
DX: E61.1 Iron deficiency (principal)

== ENCOUNTER 2017-03-04 14:57 | Emergency (ER) | payer MEDICARE ==
[~2017-03-04] VITALS: Ht 175.3 cm; Wt 104.5 kg
[2017-03-04] MEDS ORDERED: PERC10TA26 PO (15:15)
[2017-03-04] MEDS ORDERED: REST0.05 OP (15:15)
[2017-03-04] MEDS ORDERED: ALLE24TA8 PO (15:15)
[2017-03-04] MEDS ORDERED: TIZA4CAP3 PO (15:15)
[2017-03-04] MEDS ORDERED: VITA20008 PO (15:15)
[2017-03-04] MEDS ORDERED: FERR325T3 PO (15:15)
--- NOTE | 2017-03-04 16:36 | REP ---
CT Head without contrast HISTORY: Syncope COMPARISON: None There is no intraparenchymal hemorrhage, acute infarct, mass or midline shift. The ventricular system is normal in appearance. The subarachnoid space in the posterior fossa is prominent consistent with minimal cerebellar volume loss. There is no extra cerebral collection. There is no fracture. The visualized sinuses are clear. IMPRESSION: Minimal cerebellar volume loss. Signed by Tyler Bonilla MD 03/04/2017 04:27 P
[2017-03-04 16:43] LABS: BASO % 0.3 % (0.0-1.0); EOS # 0.1 10^3/uL (0.0-0.50); EOS % 0.8 % (0.0-3.0); IMMATURE GRANULOCYTE % 0.5 % (0-0); LYMPH % 13.4 % (24.0-44.0); MEAN CORPUSCULAR HGB CONC 32.3 g/dl (32.0-36.5); MEAN CORPUSCULAR VOLUME 89.6 fl (80.0-96.0); MONO # 0.9 10^3/uL (0.0-0.8); MONO % 11.6 % (0.0-5.0); NEUTROPHILS # 5.4 10^3/uL (1.8-7.7); NEUTROPHILS % 73.4 % (36.0-66.0); PLATELET COUNT, AUTOMATED 210 10^3/uL (150-450); RED CELL DISTRIBUTION WIDTH 14.6 % (11.5-14.5); WHITE BLOOD COUNT 7.3 10^3/uL (4.0-10.0)
[2017-03-04 16:58] LABS: INR 0.98
--- NOTE | 2017-03-04 16:59 | REP ---
CT LUMBAR SPINE WITHOUT CONTRAST: HISTORY: Syncope. There is no disc bulge or herniation at the L1-2 level. The L1 nerves exit the neural foramina without compression. A diffuse disc bulge is present at the L2-3 level. There is hypertrophy of the ligamenta flava and posterior articulating facets. These findings produce minimal central canal stenosis. The L2 nerves exit the neural foramina without compression. A diffuse disc bulge is present at the L3-4 level. There is hypertrophy of the ligamenta flava and posterior articulating facets. These findings produce mild central canal stenosis. The L3 nerves exit the neural foramina without compression. The diffuse disc bulge is present at the L4-5 level. There is minimal compression of the thecal sac. There is hypertrophy of the posterior articulating facets. The L4 nerves exit the neural foramina without compression. A laminectomy defect is present. A diffuse disc bulge is present at the L5-S1 level. There is minimal compression of the thecal sac. There is hypertrophy of the posterior articulating facets. The L5 nerves exit the neural foramina without compression. A laminectomy defect is present. The L3-4 through L5-S1 intervertebral discs are decreased in height consistent with disc degeneration. There is no subluxation. IMPRESSION: 1. Minimal central canal stenosis at the L2-3 level secondary to disc bulge, ligamentous and facet hypertrophy. 2. Mild central canal stenosis at the L3-4 level secondary to disc bulge, ligamentous and facet hypertrophy. 3. Diffuse disc bulges at the L4-5 and L5-S1 levels with minimal thecal sac compression. The patient is status post L4-5 laminectomy. There is anatomic alignment of the lumbar spine. The postoperative change is a new finding. Signed by Tyler Bonilla MD 03/05/2017 08:40 A
[2017-03-04 17:17] LABS: ANION GAP 5 MEQ/L (8-16); BLOOD UREA NITROGEN 19 MG/DL (7-18); CALCIUM LEVEL 8.6 MG/DL (8.5-10.1); CARBON DIOXIDE LEVEL 31 MEQ/L (21-32); CHLORIDE LEVEL 103 MEQ/L (98-107); CREATININE FOR GFR 0.93 MG/DL (0.70-1.30); GLOMERULAR FILTRATION RATE > 60.0 (>56); GLUCOSE, FASTING 92 MG/DL (70-105); MAGNESIUM LEVEL 2.3 MG/DL (1.8-2.4); POTASSIUM SERUM 4.4 MEQ/L (3.5-5.1); SODIUM LEVEL 139 MEQ/L (136-145)
[2017-03-04] MEDS ORDERED: MECLIZINE 25 MG TABLET PO ONE (17:45)
[2017-03-04] MEDS ORDERED: KETOROLAC 30 MG/ML VIAL (J1885) IV ONE (17:45)
--- NOTE | 2017-03-04 18:05 | REP ---
Clinical: Pain and swelling . Technique: Buchanan scale and color Doppler evaluation using linear high frequency transducer. Findings: Ultrasound examination of the left lower extremity deep venous structures from the common femoral vein to the popliteal vein demonstrates normal compressibility flow and wave patterns in response to respiration and augmentation. There is no evidence for deep venous thrombosis. Impression: No evidence for deep venous thrombosis. Signed by Dung Lucio MD 03/04/2017 05:56 P
[2017-03-04] MEDS ORDERED: MECL-68 PO (18:20)
[2017-03-04 18:31] VITALS: BP 152/96
--- NOTE | 2017-03-05 09:18 | ECGEPIP ---
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
== END 2017-03-04 18:42 | disposition home or self-care (01) ==
LOC: M ED 14:57
DX: R42 Dizziness and giddiness (principal); R22.43 Localized swelling, mass and lump, lower limb, bilateral; I10 Essential (primary) hypertension; F41.9 Anxiety disorder, unspecified; D64.9 Anemia, unspecified; G47.30 Sleep apnea, unspecified; M54.9 Dorsalgia, unspecified; E29.1 Testicular hypofunction; K22.70 Barrett's esophagus without dysplasia; Z79.899 Other long term (current) drug therapy; Z88.0 Allergy status to penicillin; Z88.8 Allergy status to other drugs, medicaments and biological substances
CPT/HCPCS: 70450; 72131; 80048; 81001; 83605; 83735; 84439; 84443; 85025; 85379; 85610; 85730; 87086; 93005; 93971; 96374; 99284; J1885

== ENCOUNTER → 2017-03-18 | Outpatient (CLI) | payer MEDICARE ==
[~2017-03-18] MED LIST changes: +ALLE24TA8 PO; +MECL-68 PO; +PERC10TA26 PO; +REST0.05 OP; +TIZA4CAP3 PO; +VITA20008 PO
[2017-03-18 17:36] LABS: MEAN CORPUSCULAR HEMOGLOBIN 29.3 pg (27.0-33.0); MEAN CORPUSCULAR HGB CONC 32.2 g/dl (32.0-36.5); MEAN CORPUSCULAR VOLUME 91.1 fl (80.0-96.0); PLATELET COUNT, AUTOMATED 229 10^3/uL (150-450); RED CELL DISTRIBUTION WIDTH 14.6 % (11.5-14.5); WHITE BLOOD COUNT 8.1 10^3/uL (4.0-10.0)
== END ==
LOC: M SMT 13:08
PROVIDERS: ATTEND Internal Medicine Endocrinology, Diabetes & Metabolism
DX: E29.1 Testicular hypofunction (principal)

== ENCOUNTER → 2017-03-31 | Outpatient (CLI) | payer MEDICARE | LOC: M PAIN 10:00 | DX: G89.29 Other chronic pain (principal); M47.22 Other spondylosis with radiculopathy, cervical region; M51.26 Other intervertebral disc displacement, lumbar region; K22.70 Barrett's esophagus without dysplasia; G47.30 Sleep apnea, unspecified; I10 Essential (primary) hypertension; F32.9 Major depressive disorder, single episode, unspecified; F41.9 Anxiety disorder, unspecified; Z88.0 Allergy status to penicillin; Z79.891 Long term (current) use of opiate analgesic; Z79.899 Other long term (current) drug therapy | CPT/HCPCS: G0463 ==

== ENCOUNTER → 2017-05-07 | Outpatient (CLI) | payer MEDICARE | LOC: M PLARAD 08:03 | DX: M50.13 Cervical disc disorder with radiculopathy, cervicothoracic region (principal); M54.6 Pain in thoracic spine; M47.22 Other spondylosis with radiculopathy, cervical region | CPT/HCPCS: 72141 ==

== ENCOUNTER → 2017-05-11 | Outpatient (CLI) | payer MEDICARE ==
[~2017-05-11] MED LIST changes: -/ESCI10TA PEG; -ACET50TA PO; -ALEV220C2 PO; -ALLE24TA8 PO; -AMLO5TAB2 PO; -BACT2OIN EX; -CEFA500C PO; -CIAL2.5T PO; -CLON0.5T17 PO; -DEXI60CA PO; -DOXY-197 PO; -ERYT TOP; -ESCI10TA2 PO; -ESCI20TA PO; -FERR325T3 PO; -FLUT50SP; -GABA100C PO; -GABA300C2 PO; -HYDROCHLOROT PO; -IRONTAB3 PO; +ISOVUE-M 300 61% 15ML VIAL (Q9967) As Ordered; +LIDOCAINE 1% SDV INJ 30 ML VIAL As Ordered; -LISI40TAB PO; -MECL-68 PO; -METF500T13 PO; -MINO100T PO; -MINO1CAP PO; -MORP-38 PO; -MORP-39 PO; -NEXI20CA PO; -OXYC5TAB2 PO; -PERC10TA26 PO; -PERCOCET PO; -REST0.05 OP; -SOMA350T PO; -TIZA4CAP3 PO; -TYLE167L PO; -VITA100067 PO; -VITA200028 PO; -VITA20008 PO; -VITACAP31 PO; -VITAMIND; -ZANA4CAP PO; -ZOLP-187 PO; -[UNRECOGNIZED DRUG - CODE] EX; -[UNRECOGNIZED DRUG - CODE] IM; -[UNRECOGNIZED DRUG - CODE] PO; -clindamycin PO; +diazePAM 5 MG TAB As Ordered; -lisinopril/hctz PO; +methylPREDNISolone SUSP 40 MG/ML (DEPO-medrol) VIAL (J1030) As Ordered; -ocean spray; +oxyCODONE 5MG TAB As Ordered
== END ==
LOC: M PAIN 08:45
DX: G89.29 Other chronic pain (principal); M50.13 Cervical disc disorder with radiculopathy, cervicothoracic region; K22.70 Barrett's esophagus without dysplasia; I10 Essential (primary) hypertension; G47.30 Sleep apnea, unspecified; F32.9 Major depressive disorder, single episode, unspecified; F41.9 Anxiety disorder, unspecified; Z79.899 Other long term (current) drug therapy; Z88.0 Allergy status to penicillin
CPT/HCPCS: J1030

== ENCOUNTER → 2017-06-10 | Outpatient (CLI) | payer MEDICARE | LOC: M PAIN 11:30 | DX: M47.22 Other spondylosis with radiculopathy, cervical region (principal); M51.26 Other intervertebral disc displacement, lumbar region; K22.70 Barrett's esophagus without dysplasia; I10 Essential (primary) hypertension; E55.9 Vitamin D deficiency, unspecified; Z79.891 Long term (current) use of opiate analgesic; Z79.899 Other long term (current) drug therapy; Z88.0 Allergy status to penicillin | CPT/HCPCS: G0463 ==

== ENCOUNTER → 2017-08-10 | Outpatient (CLI) | payer MEDICARE | LOC: M PAIN 10:45 | DX: M47.22 Other spondylosis with radiculopathy, cervical region (principal); G89.29 Other chronic pain; K22.70 Barrett's esophagus without dysplasia; I10 Essential (primary) hypertension; G47.30 Sleep apnea, unspecified; E29.1 Testicular hypofunction; F32.9 Major depressive disorder, single episode, unspecified; F41.9 Anxiety disorder, unspecified; M19.90 Unspecified osteoarthritis, unspecified site; Z79.891 Long term (current) use of opiate analgesic; Z79.899 Other long term (current) drug therapy; Z88.0 Allergy status to penicillin | CPT/HCPCS: G0463 ==

== ENCOUNTER → 2017-08-25 | Outpatient (CLI) | payer MEDICARE | LOC: M PAIN 10:30 | DX: G89.29 Other chronic pain (principal); M50.13 Cervical disc disorder with radiculopathy, cervicothoracic region; I10 Essential (primary) hypertension; F32.9 Major depressive disorder, single episode, unspecified; F41.9 Anxiety disorder, unspecified; G47.30 Sleep apnea, unspecified; K22.70 Barrett's esophagus without dysplasia; Z79.899 Other long term (current) drug therapy; Z88.0 Allergy status to penicillin | CPT/HCPCS: J1030 ==

== ENCOUNTER → 2017-09-01 | Outpatient (CLI) | payer MEDICARE ==
[2017-09-02 00:10] LABS: ANION GAP 7 MEQ/L (8-16); BLOOD UREA NITROGEN 20 MG/DL (7-18); CARBON DIOXIDE LEVEL 30 MEQ/L (21-32); CHLORIDE LEVEL 101 MEQ/L (98-107); CREATININE FOR GFR 0.96 MG/DL (0.70-1.30); GLOMERULAR FILTRATION RATE > 60.0 (>56); GLUCOSE, FASTING 104 MG/DL (70-100); POTASSIUM SERUM 4.2 MEQ/L (3.5-5.1); SODIUM LEVEL 138 MEQ/L (136-145)
[2017-09-02 00:11] LABS: ALBUMIN 4.1 GM/DL (3.2-5.2); ALBUMIN/GLOBULIN RATIO 1.41 (1.00-1.93); ALKALINE PHOSPHATASE 65 U/L (45-117); ALT/SGPT 48 U/L (12-78); AST/SGOT 21 U/L (7-37); BILIRUBIN,TOTAL 0.4 MG/DL (0.2-1.0); CALCIUM LEVEL 8.4 MG/DL (8.5-10.1); CHOLESTEROL LEVEL 163 MG/DL (<200); HDL CHOLESTEROL 25 MG/DL (>40); LDL CHOLESTEROL 100.2 MG/DL (<100); NON-HDL-C 138 MG/DL; TRIGLYCERIDES LEVEL 189 MG/DL (<150)
[2017-09-02 00:12] LABS: TOTAL IRON BINDING CAPACITY 351 UG/DL (250-450)
[2017-09-02 00:13] LABS: FERRITIN 61 NG/ML (26-388)
[2017-09-02 00:39] LABS: IRON (FE) 64 UG/DL (65-175); PERCENT SATURATION 18.2 % (19.7-50.0)
[2017-09-02 03:45] LABS: BASO % 0.6 % (0.0-1.0); EOS # 0.1 10^3/uL (0.0-0.50); EOS % 2.2 % (0.0-3.0); HEMOGLOBIN 14.6 g/dl (13.5-17.5); IMMATURE GRANULOCYTE % 0.3 % (0-3.0); LYMPH # 1.4 10^3/uL (1.5-4.5); LYMPH % 21.9 % (24.0-44.0); MEAN CORPUSCULAR HEMOGLOBIN 28.7 pg (27.0-33.0); MEAN CORPUSCULAR HGB CONC 31.1 g/dl (32.0-36.5); MEAN CORPUSCULAR VOLUME 92.5 fl (80.0-96.0); MONO # 0.6 10^3/uL (0.0-0.8); NEUTROPHILS # 4.2 10^3/uL (1.8-7.7); PLATELET COUNT, AUTOMATED 237 10^3/uL (150-450); RED BLOOD COUNT 5.08 10^6/uL (4.30-6.10); RED CELL DISTRIBUTION WIDTH 13.7 % (11.5-14.5); WHITE BLOOD COUNT 6.4 10^3/uL (4.0-10.0)
== END ==
LOC: M SMT 08:41
DX: D50.9 Iron deficiency anemia, unspecified (principal); I10 Essential (primary) hypertension; E29.1 Testicular hypofunction
CPT/HCPCS: 83550

== ENCOUNTER → 2017-09-01 | Outpatient (CLI) | payer MEDICARE ==
[2017-09-01 17:49] LABS: PSA SCREENING 0.62 NG/ML (< 4.0)
[2017-09-02 03:44] LABS: HEMOGLOBIN 14.8 g/dl (13.5-17.5)
[2017-09-02 14:37] LABS: TESTOSTERONE 503 NG/DL (241-827)
== END ==
LOC: M SMT 08:44
DX: E29.1 Testicular hypofunction (principal)

== ENCOUNTER → 2017-11-23 | Outpatient (REF) | payer MEDICARE ==
[2017-11-23 16:45] LABS: BASO % 0.5 % (0.0-1.0); EOS # 0.2 10^3/uL (0.0-0.50); EOS % 2.8 % (0.0-3.0); HEMATOCRIT 42.4 % (42.0-52.0); HEMOGLOBIN 14.1 g/dl (13.5-17.5); IMMATURE GRANULOCYTE % 0.5 % (0-3.0); LYMPH # 1.7 10^3/uL (1.5-4.5); LYMPH % 25.8 % (24.0-44.0); MEAN CORPUSCULAR HEMOGLOBIN 29.4 pg (27.0-33.0); MEAN CORPUSCULAR HGB CONC 33.3 g/dl (32.0-36.5); MEAN CORPUSCULAR VOLUME 88.5 fl (80.0-96.0); MONO # 0.8 10^3/uL (0.0-0.8); MONO % 11.7 % (0.0-5.0); NEUTROPHILS # 3.8 10^3/uL (1.8-7.7); NEUTROPHILS % 58.7 % (36.0-66.0); PLATELET COUNT, AUTOMATED 231 10^3/uL (150-450); RED BLOOD COUNT 4.79 10^6/uL (4.30-6.10); RED CELL DISTRIBUTION WIDTH 13.2 % (11.5-14.5); WHITE BLOOD COUNT 6.5 10^3/uL (4.0-10.0)
[2017-11-23 18:41] LABS: ANION GAP 6 MEQ/L (8-16); BLOOD UREA NITROGEN 12 MG/DL (7-18); CALCIUM LEVEL 8.6 MG/DL (8.5-10.1); CARBON DIOXIDE LEVEL 31 MEQ/L (21-32); CHLORIDE LEVEL 103 MEQ/L (98-107); CREATININE FOR GFR 0.92 MG/DL (0.70-1.30); GLOMERULAR FILTRATION RATE > 60.0 (>56); GLUCOSE, FASTING 104 MG/DL (70-100); POTASSIUM SERUM 4.1 MEQ/L (3.5-5.1); SODIUM LEVEL 140 MEQ/L (136-145)
== END ==
LOC: M LABDRAW1 15:47
DX: K42.9 Umbilical hernia without obstruction or gangrene (principal)
CPT/HCPCS: 80048

== ENCOUNTER → 2018-03-08 | Outpatient (REF) | payer MEDICARE ==
[2018-03-08 10:49] LABS: HEMATOCRIT 45.4 % (42.0-52.0); HEMOGLOBIN 14.5 g/dl (13.5-17.5)
[2018-03-08 10:59] LABS: TESTOSTERONE 576 NG/DL (241-827)
== END ==
LOC: M LABDRAW1 09:04
DX: E29.1 Testicular hypofunction (principal)
CPT/HCPCS: 84403

== ENCOUNTER → 2018-03-08 | Outpatient (REF) | payer MEDICARE ==
[2018-03-08 10:53] LABS: ANION GAP 6 MEQ/L (8-16); BLOOD UREA NITROGEN 14 MG/DL (7-18); CALCIUM LEVEL 9.2 MG/DL (8.5-10.1); CARBON DIOXIDE LEVEL 34 MEQ/L (21-32); CHLORIDE LEVEL 98 MEQ/L (98-107); CREATININE FOR GFR 1.07 MG/DL (0.70-1.30); GLOMERULAR FILTRATION RATE > 60.0 (>56); GLUCOSE, FASTING 118 MG/DL (70-100); POTASSIUM SERUM 4.1 MEQ/L (3.5-5.1); SODIUM LEVEL 138 MEQ/L (136-145); TRIGLYCERIDES LEVEL 277 MG/DL (<150)
[2018-03-08 10:54] LABS: CHOLESTEROL LEVEL 177 MG/DL (<200); CHOLESTEROL RISK RATIO 6.807 (<5); HDL CHOLESTEROL 26 MG/DL (>40); LDL CHOLESTEROL 96 MG/DL (<100); NON-HDL-C 151 MG/DL
[2018-03-08 11:59] LABS: ESTIMATED AVERAGE GLUCOSE 131 MG/DL (60-110); HEMOGLOBIN A1c 6.2 %
== END ==
LOC: M LABDRAW1 09:02
DX: E78.2 Mixed hyperlipidemia (principal); I10 Essential (primary) hypertension; R73.01 Impaired fasting glucose
CPT/HCPCS: 83036

== ENCOUNTER → 2018-05-03 | Outpatient (CLI) | payer MEDICARE ==
[~2018-05-03] MED LIST changes: +/ESCI10TA PEG; +ACET500T15 PO; +ACET50TA PO; +ALEV220C2 PO; +ALLE24TA8 PO; +AMLO10TA5 PO; +AMLO5TAB2 PO; +BACT2OIN EX; +CEFA500C PO; +CIAL2.5T PO; +CLON0.5T17 PO; +DEXI60CA PO; +DOXY-197 PO; +ERYT TOP; +ESCI10TA2 PO; +ESCI20TA PO; +ESOM1CAP5; +FERR325T3 PO; +FLUT50SP; +GABA100C PO; +GABA300C2 PO; +HYDROCHLOROT PO; +IRONTAB3 PO; -ISOVUE-M 300 61% 15ML VIAL (Q9967) As Ordered; -LIDOCAINE 1% SDV INJ 30 ML VIAL As Ordered; +LISI10TA4 PO; +LISI20TA3 PO; +LISI40TAB PO; +MECL-68 PO; +METF500T13 PO; +METH1TAB40 PO; +MINO100C63 PO; +MINO100T PO; +MORP-38 PO; +MORP-39 PO; +NEXI20CA PO; +OXYC5TAB2 PO; +PERC10TA26 PO; +PERCOCET PO; +REST0.05 OU; +SOMA350T PO; +TEST200I14 IM; +TIZA4CAP PO; +TYLE167L PO; +VITA100067 PO; +VITA200028 PO; +VITA20008 PO; +VITACAP31 PO; +VITAMIND; +ZANA4CAP PO; +ZOLP-187 PO; +[UNRECOGNIZED DRUG - CODE] EX; +[UNRECOGNIZED DRUG - CODE] IM; +[UNRECOGNIZED DRUG - CODE] PO; +clindamycin PO; -diazePAM 5 MG TAB As Ordered; +lisinopril/hctz PO; -methylPREDNISolone SUSP 40 MG/ML (DEPO-medrol) VIAL (J1030) As Ordered; +ocean spray; -oxyCODONE 5MG TAB As Ordered
--- NOTE | 2018-05-15 23:44 | ECWPNPC ---
PATIENT NAME: KIMBERLEY VALENCIA : 1965 GENDER: MALE VISIT DATE: 05/03/2018 DISCHARGE DATE: 05/03/18 1612 VISIT LOCKED DATE TIME: PHYSICIAN: WILLIAM FREEMAN PHYSICIAN PAGER NO: [phone] [phone] RESOURCE: WILLIAM FREEMAN REASON FOR APPOINTMENT 1. NECK/BACK/SHOUDERS HISTORY OF PRESENT ILLNESS HISTORY OF PRESENT ILLNESS: HERE FOR F/U OF CHRONIC LOW BACK PAIN AND BILATERAL LEG PAIN.PAIN ESCALATED OVER THE PAST 5-6 MONTHS.PAIN IS EXACERBATED BY WALKING.DESCRIBES ACHING PAIN IN LEGS LEFT GREATER THAN RIGHT.HAD L4/5 S1 LAMINECTOMY IN FEBRUARY 2017.RATING PAIN VAS 5/10. PAIN THE PATIENT DESCRIBES THE PAIN... FALL RISK SCREENING: SCREENING :NO FALLS IN THE PAST YEAR CURRENT MEDICATIONS TAKING ARTIFICIAL TEARS 0.4 % SOLUTION 1 DROP INTO AFFECTED EYE NEEDED OPHTHALMIC ONCE A DAY TAKING NEXIUM 24HR 20 MG CAPSULE DELAYED RELEASE 1 CAPSULE ORALLY ONCE A DAY TAKING TESTOSTERONE CYPIONATE 200 MG/ML OIL 0.8 ML INTRAMUSCULAR(DR KIERRA ELMORE) EVERY 10 DAYS TAKING RESTASIS 0.05 % EMULSION 1 DROP INTO AFFECTED EYE OPHTHALMIC TWICE A DAY TAKING FERROUS SULFATE 325 (65 FE) MG TABLET 1 TABLET ORALLY ONCE A DAY TAKING AMLODIPINE BESYLATE 10 MG TABLET 1 TABLET ORALLY ONCE A DAY TAKING LISINOPRIL-HYDROCHLOROTHIAZIDE 20-25 MG TABLET 1 TABLET ORALLY ONCE A DAY TAKING LISINOPRIL 10 MG TABLET 1 TABLET ORALLY ONCE A DAY TAKING TIZANIDINE HCL 4 MG TABLET 1 TABLET NEEDED ORALLY THREE TIMES A DAY TAKING VITAMIN D3 2000 UNIT CAPSULE 1 CAPSULE ORALLY ONCE A DAY TAKING OXYCODONE-ACETAMINOPHEN 10-325 MG TABLET 1 TABLET NEEDED ORALLY EVERY 6 HRS NOT-TAKING VITAMIN D 2000 UNIT CAPSULE 1 CAPSULE ORALLY DAILY NOT-TAKING MECLIZINE HCL 25 MG TABLET CHEWABLE 1 TABLET NEEDED ORALLY ONCE A DAY NOT-TAKING FEXOFENADINE HCL 180 MG TABLET 1 TABLET NEEDED ORALLY ONCE A DAY NOT-TAKING PERCOCET 10-325 MG TABLET 1 TABLET NEEDED ORALLY EVERY 6 HRS MDD4 NOT-TAKING CYMBALTA 30 MG CAPSULE DELAYED RELEASE PARTICLES 1 CAPSULE ORALLY ONCE A DAY NOT-TAKING CLONAZEPAM 0.5 MG TABLET DISPERSIBLE 1-2 TABLET ON THE TONGUE AND ALLOW TO DISSOLVE ORALLY AT BEDTIME NEEDED FOR INSOMNIA AND RESTLESS LEGS MDD:2 NOT-TAKING TOPIRAMATE 25 MG TABLET 1 TABLET ORALLY TWICE A DAY MEDICATION LIST REVIEWED AND RECONCILED WITH THE PATIENT PAST MEDICAL HISTORY BARRETS ESOPHAGUS HYPERTENSION SLEEP APNEA TX WITH CPAP ([facility]) BACK PAIN - ([facility]) HYPOTESTOSTERONEMIA (C. RAMÍREZ) MAJOR DEPRESSION, SINGLE EPISODE (MANISH) ANXIETY OA (MULTIPLE LOCATIONS) ASCVD 10-YEAR RISK IS 5.3% IN 08/2016 OSCAR'S ESOPHAGUS: GASTRO IN [place] ALLERGIES PENICILLIN (FOR ALLERGIES USE ONLY): FEET SWELLS: ALLERGY SURGICAL HISTORY TONSILLECTOMY CHILD BILATERAL CARPAL TUNNEL (FISH) 2009 EGD/COLONOSCOPY ([facility] IN [place]) 11/2011 LEFT ELBOW CUBITAL TUNNEL TRANSLATION (FISH) 2012 RIGHT CARPAL TUNNEL 07/05/13 COLO/EGD- KATHRYN-SY[facility]- MILD ESOPHAGITIS 05/20 BACK SURGERY- DR DAMIAN FELIX 01/2017 FAMILY HISTORY FATHER: 70 YRS, PROSTATE CA AT AGE 65 MOTHER: ALIVE 76 YRS, DIAGNOSED WITH DIABETES SIBLINGS: BROTHER CROHN'S SISTER THYROID DISEASE DAUGHTER(S): ALIVE, DAUGHTER MVA 1DAUGHTER(S) . SOCIAL HISTORY GENERAL: TOBACCO USE ARE YOU A:NONSMOKER BMI CARE GOAL FOLLOW-UP ABOVE NORMAL BMI FOLLOW-UPLIFESTYLE EDUCATION REGARDING DIET ALCOHOL SCREENING DID YOU HAVE A DRINK CONTAINING ALCOHOL IN THE PAST YEAR?NO POINTS0 INTERPRETATIONNEGATIVE RECREATIONAL DRUG USE DRUG USE?NO PATIENT DENIES ABUSE OR MISSUSED OF ANY MEDICATION. PATIENT DENIES USE OF ANY ILLEGAL SUBSTANCE INCLUDING MARIJUANA OR COCAINE. CAFFEINE CAFFEINE USE?YES 1 COFFEE DAILY SEXUAL HX HAD SEX IN THE LAST 12 MONTHS (VAGINAL, ORAL, OR ANAL)?YES WITHWOMEN ONLY USE PROTECTION?NO HAVE YOU EVER HAD AN STD?NO HIV / HEP-C SCREENING HIV TEST OFFERED TO PATIENT:YES DATE OFFERED:01/28/2017 TEST ACCEPTED:NO REASON:PATIENT DECLINED HEP-C TEST OFFERED TO PATIENT:NO PROTESTANT [id number] MUSLIM LANGUAGE LANGUAGES SPOKEN:MONGOLIAN EDUCATION LEVEL OF EDUCATION:HIGH SCHOOL LEARNING BARRIERS / SPECIAL NEEDS CHANGE FROM LAST VISIT?NO BARRIERS TO LEARNING?NO HEARING IMPAIRED?YES :HEARING AIDES C/O INCREASED HEARING LOSS VISION IMPAIRED?NO COGNITIVELY IMPAIRED?NO READINESS TO LEARN?YES LEARNING PREFERENCES?NO LEARNING CAPABILITIES PRESENT?YES EMOTIONAL BARRIERS?NO SPECIAL DEVICES?NO CAPTAIN/CHECK AIRMAN NEEDED?NO DOMESTIC VIOLENCE DO YOU FEEL SAFE IN YOUR ENVIRONMENT?YES OCCUPATION: DISABLED. DIET: REGULAR. EXERCISE: NO REGULAR EXERCISE. MARITAL STATUS: . OTHERS AT HOME: SPOUSE. PAIN CLINIC PFS, CLERGY, PUBLIC HEALTH REFERRALS PFS REFERRAL NEEDED?NO CLERGY REFERRAL NEEDED?NO PUBLIC HEALTH REFERRAL NEEDED?NO WAS THE PROVIDER NOTIFIED OF ANY PERTINENT INFO?NO HAS THE PATIENT BEEN EDUCATED REGARDING HIS/HER PLAN OF CARE?YES HAS THE PATIENT BEEN EDUCATED REGARDING PAIN, THE RISK FOR PAIN, THE IMPORTANCE OF EFFECTIVE PAIN MANAGEMENT, AND THE PAIN ASSESSMENT PROCESS?YES ADVANCE DIRECTIVE ADVANCE DIRECTIVE DISCUSSED WITH PATIENT:YES HCP-LAUREL VALENCIA 08/25/17 9535 REVIEWED WITH PT. VARINDER WITH PATIENT 05/03/18 1157 JS. HOSPITALIZATION/MAJOR DIAGNOSTIC PROCEDURE CHEST PAIN/DYSPNEA, R/O ID (KALISPELL) 10/15 BACK SURGERY 01/2017 REVIEW OF SYSTEMS REVIEWED BY: PROVIDER: WILLIAM DYE . CONSTITUTIONAL: ANY CHANGE IN YOUR MEDICAL CONDITION? NO . CHILLS NO . FEVER NO . INFECTION: DO YOU HAVE NEW INFECTIONS? NO . DO YOU HAVE HISTORY OF MRSA? NO . MUSCULOSKELETAL: ANY NEW PATTERNS OF PAIN OR NUMBNESS? YES, STATES INCREASED PAIN IN LOWER BACK, RADIATING DOWN BILATERAL LEGS . GASTROENTEROLOGY: ANY NEW CHANGE IN BOWEL CONTROL? NO . GENITOURINARY: ANY NEW CHANGE IN BLADDER CONTROL? NO . IS THERE A CHANCE YOU COULD BE ? NO . HEMATOLOGY/LYMPH: DO YOU TAKE ANY BLOOD THINNERS? (FOR EXAMPLE- COUMADIN, PLAVIX, AGGRENOX, PLATEL, PRADAXA, OR XARELTO) NO . WHEN WAS YOUR LAST DOSE? DATE: TIME: . NEUROLOGY: HAVE YOU FALLEN IN THE PAST 12 MONTHS? YES, STATES CONTROLLED FALL A COUPLE WEEKS AGO WHILE SNOWBLOWING, FELT A SHARP PAIN IN THE BACK AND THEN COULDN'T FEEL HIS LEGS. STATES NO INJURIES, NO ED VISIT . ANY NEW EXTREMITY NUMBNESS OR WEAKNESS? YES, INCREASED WEAKNESS AND TINGLING TO BILATERAL LEGS . CARDIOLOGY: DO YOU HAVE A PACEMAKER OR DEFIBRILLATOR? NO . RESPIRATORY: HAVE YOU BEEN SICK IN THE PAST WEEK? NO . FEVER NO . FLU LIKE SYMPTOMS? NO . COUGH NO . INTEGUMENTARY: DO YOU HAVE ANY RASHES OR OPEN SORES? NO . ALLERGIC/IMMUNO: ARE YOU ALLERGIC TO IV DYE? NO . ANY NEW ALLERGIES? NO . PSYCHIATRIC: DO YOU HAVE THOUGHTS OF HURTING YOURSELF OR SOMEONE ELSE? NO . ARE YOU ABUSED, NEGLECTED, OR IN AN UNSAFE ENVIRONMENT? NO . ENDOCRINOLOGY: ARE YOU DIABETIC? NO . OTHER: DO YOU NEED ANY PRESCRIPTIONS? NO . IF YES, PLEASE LIST: ____ . ANY NEW PROBLEMS WITH YOUR MEDICATIONS? NO . WHEN DID YOU LAST EAT? ____ . WHEN DID YOU LAST DRINK? ____ . WHAT DID YOU LAST DRINK? ____ . NAME OF PERSON DRIVING YOU HOME? ____ . DO YOU HAVE ANY OTHER QUESTIONS OR CONCERNS NO . VITAL SIGNS WT 238.8 LBS, HT 68 IN, BMI 36.31 INDEX, BP 148/76 MM HG, HR 80 /MIN, RR 18 /MIN, TEMP 98.5 F, OXYGEN SAT % 99%, SAFE IN ENV? (Y/N) YES, NA INITIALS SC 15:15, REVIEWED BY: ARTURO. EXAMINATION GENERAL EXAMINATION: GENERAL APPEARANCE:AWAKE,ALERT ,PLEAASANT . PSYCHAFFECT NORMAL . LUNGS:LUNG KLINE ARE CLEAR TO AUSCULTATION BILATERALLY. GOOD MOVEMENT OF AIR . HEART:S1, S2 IN A REGULAR RATE AND RHYTHM. NO SIGNIFICANT MURMURS, RUBS OR GALLOPS NOTED . MUSCULOSKELETAL:WEAK OVER RIGHT LEG . LUMBAR SACRAL SPINEPALPATION: + FOR PAIN OVER L/S SPINE. + FOR PAIN OVER L/S PARASPINALS . NEUROLOGIC EXAM:NORMAL SENSATION LIGHT TOUCH BILAT. LOWER EXTREMITIES . DIAGNOSTIC TESTS REVIEWEDMRI L/S SPINE-10/28/16. ASSESSMENTS POST LAMINECTOMY SYNDROME - M96.1 (PRIMARY) TREATMENT POST LAMINECTOMY SYNDROME NOTES: CAUDAL EPIDURAL STEROID INJECTION,WHAT IS LUMBAR EPIDURAL INJECTION? MATERIAL WAS PRINTED,LUMBAR EPIDURAL INJECTION: YOUR PROCEDURE MATERIAL WAS PRINTED. PREVENTIVE MEDICINE PAIN CLINIC TEACHING: PROCEDURE TEACHING PRINTED AND REVIEWED INFORMATION ON EPIDURAL PROCEDURE WITH PATIENT. ALSO REVIEWED PRE-PROCEDURE INSTRUCTIONS. PATIENT VERBALIZED AN UNDERSTANDING. JANAE MARTINEZ 05/03/2018 4:23:43 PM > . PROCEDURE CODES FA211 ESTABILISHED PATIENT [facility] CHARGE DISPOSITION & COMMUNICATION FOLLOW UP POST (REASON: CAUDAL EPIDURAL STEROID INJECTION) ELECTRONICALLY SIGNED BY HARDIK COLUNGA ON 05/15/2018 AT 02:19 PM EST DISCLAIMER : THIS IS A VISIT SUMMARY EXTRACTED FROM THE [place] CHART. IT IS NOT A COPY OF THE [place] PROGRESS NOTE. ENE
== END ==
LOC: M PAIN 15:15
PROVIDERS: ATTEND Nurse Practitioner Family
DX: M96.1 Postlaminectomy syndrome, not elsewhere classified (principal); K22.70 Barrett's esophagus without dysplasia; I10 Essential (primary) hypertension; G47.30 Sleep apnea, unspecified; F32.9 Major depressive disorder, single episode, unspecified; F41.9 Anxiety disorder, unspecified; E29.1 Testicular hypofunction; M19.90 Unspecified osteoarthritis, unspecified site; Z79.899 Other long term (current) drug therapy; Z88.0 Allergy status to penicillin; Z79.891 Long term (current) use of opiate analgesic

== ENCOUNTER → 2018-05-19 | Outpatient (CLI) | payer MEDICARE ==
[~2018-05-19] MED LIST changes: +BUPIVACAINE HCL 0.25% 30 ML VIAL As Ordered ONE; +ISOVUE-M 300 61% 15ML VIAL (Q9967) As Ordered ONE; +LIDOCAINE 1% SDV INJ 30 ML VIAL As Ordered ONE; +TRIAMCINOLONE ACETONIDE SUSP 40 MG/ML VIAL (J3301) As Ordered ONE; +diazePAM 5 MG TAB As Ordered ONE; +oxyCODONE 5MG TAB As Ordered ONE
--- NOTE | 2018-05-20 11:45 | REP ---
C-ARM VIEWS LUMBAR SPINE DURING LUMBAR FACET BLOCK: A C-arm view of the lumbar spine is performed during facet block. CLINICAL HISTORY: Pain. Two needles are seen along the lower lumbar facets. 26 seconds of fluoroscopy time utilized. Electronically Signed by Shailesh Buchaann MD 05/20/2018 04:00 P
--- NOTE | 2018-06-06 00:17 | ECWPNPC ---
PATIENT NAME: KIMBERLEY VALENCIA : 1965 GENDER: MALE VISIT DATE: 05/19/2018 DISCHARGE DATE: 05/19/18 1235 VISIT LOCKED DATE TIME: PHYSICIAN: OMA POWELL MD PHYSICIAN PAGER NO: TEXT [phone] RESOURCE: OMA POWELL MD REASON FOR APPOINTMENT 1. LFBT HISTORY OF PRESENT ILLNESS HISTORY OF PRESENT ILLNESS: PAIN THE PATIENT DESCRIBES THE PAIN... 52 YEAR OLD MALE PATIENT WITH A HISTORY OF CHRONIC LOW BACK PAIN. THE PATIENT DESCRIBES THE PAIN ACHING, SORE STABBING, SHOOTING, AND CONTINUOUS WITH A PAIN SCORE OF 6-10/10 DEPENDING ON PHYSICAL ACTIVITY. THE PATIENT SAYS HIS PAIN IS MAINLY LOCATED AT THE RIGHT SIDE OF HIS LOW BACK AREA. PATIENT DENIES UNEXPLAINABLE WEIGHT LOSS, FEVER, CHILLS, NEW CHANGES ON HIS URINARY OR BOWEL CONTROL. FALL RISK SCREENING: SCREENING : NO FALLS IN THE PAST YEAR. CURRENT MEDICATIONS TAKING ARTIFICIAL TEARS 0.4 % SOLUTION 1 DROP INTO AFFECTED EYE NEEDED OPHTHALMIC ONCE A DAY, NOTES: 2 DAYS AGO TAKING NEXIUM 24HR 20 MG CAPSULE DELAYED RELEASE 1 CAPSULE ORALLY ONCE A DAY, NOTES: 05/18/18 TAKING TESTOSTERONE CYPIONATE 200 MG/ML OIL 0.8 ML INTRAMUSCULAR(DR KIERRA ELMORE) EVERY 10 DAYS, NOTES: 6 DAYS AGO TAKING RESTASIS 0.05 % EMULSION 1 DROP INTO AFFECTED EYE OPHTHALMIC TWICE A DAY, NOTES: 2 DAYS AGO TAKING FERROUS SULFATE 325 (65 FE) MG TABLET 1 TABLET ORALLY ONCE A DAY, NOTES: 05/18/18 TAKING AMLODIPINE BESYLATE 10 MG TABLET 1 TABLET ORALLY ONCE A DAY, NOTES: 05/18/18 TAKING LISINOPRIL-HYDROCHLOROTHIAZIDE 20-25 MG TABLET 1 TABLET ORALLY ONCE A DAY, NOTES: 05/18/18 TAKING LISINOPRIL 10 MG TABLET 1 TABLET ORALLY ONCE A DAY, NOTES: 05/18/18 TAKING TIZANIDINE HCL 4 MG TABLET 1 TABLET NEEDED ORALLY THREE TIMES A DAY, NOTES: NONE IN WEEKS TAKING VITAMIN D3 2000 UNIT CAPSULE 1 CAPSULE ORALLY ONCE A DAY, NOTES: 05/18/18 TAKING OXYCODONE-ACETAMINOPHEN 10-325 MG TABLET 1 TABLET NEEDED ORALLY EVERY 6 HRS, NOTES: 05/18/18 2300 NOT-TAKING VITAMIN D 2000 UNIT CAPSULE 1 CAPSULE ORALLY DAILY NOT-TAKING MECLIZINE HCL 25 MG TABLET CHEWABLE 1 TABLET NEEDED ORALLY ONCE A DAY NOT-TAKING FEXOFENADINE HCL 180 MG TABLET 1 TABLET NEEDED ORALLY ONCE A DAY NOT-TAKING PERCOCET 10-325 MG TABLET 1 TABLET NEEDED ORALLY EVERY 6 HRS MDD4 NOT-TAKING CYMBALTA 30 MG CAPSULE DELAYED RELEASE PARTICLES 1 CAPSULE ORALLY ONCE A DAY NOT-TAKING CLONAZEPAM 0.5 MG TABLET DISPERSIBLE 1-2 TABLET ON THE TONGUE AND ALLOW TO DISSOLVE ORALLY AT BEDTIME NEEDED FOR INSOMNIA AND RESTLESS LEGS MDD:2 NOT-TAKING TOPIRAMATE 25 MG TABLET 1 TABLET ORALLY TWICE A DAY MEDICATION LIST REVIEWED AND RECONCILED WITH THE PATIENT PAST MEDICAL HISTORY BARRETS ESOPHAGUS HYPERTENSION SLEEP APNEA [place] WITH CPAP (MYA MAURICIO) BACK PAIN - ([facility]) HYPOTESTOSTERONEMIA (Jermaine ELMORE) MAJOR DEPRESSION, SINGLE EPISODE (MANISH) ANXIETY OA (MULTIPLE LOCATIONS) ASCVD 10-YEAR RISK IS 5.3% IN 08/2016 OSCAR'S ESOPHAGUS: GASTRO IN [place] ALLERGIES PENICILLIN (FOR ALLERGIES USE ONLY): FEET SWELLS: ALLERGY SURGICAL HISTORY TONSILLECTOMY CHILD BILATERAL CARPAL TUNNEL (FISH) 2009 EGD/COLONOSCOPY ([facility]ATHRYN IN [place]) 11/2011 LEFT ELBOW CUBITAL TUNNEL TRANSLATION (FISH) 2012 RIGHT CARPAL TUNNEL 07/05/13 COLO/EGD- KATHRYN-[place]- MILD ESOPHAGITIS 05/20 BACK SURGERY- DR DAMIAN FELIX 01/2017 FAMILY HISTORY FATHER: 70 YRS, PROSTATE CA AT AGE 65, DIAGNOSED WITH HYPERTENSION MOTHER: ALIVE 76 YRS, DIAGNOSED WITH DIABETES SIBLINGS: BROTHER CROHN'S SISTER THYROID DISEASE DAUGHTER(S): ALIVE, DAUGHTER MVA 1DAUGHTER(S) . SOCIAL HISTORY GENERAL: TOBACCO USE ARE YOU A:NONSMOKER BMI CARE GOAL FOLLOW-UP ABOVE NORMAL BMI FOLLOW-[facility] EDUCATION REGARDING DIET ALCOHOL SCREENING DID YOU HAVE A DRINK CONTAINING ALCOHOL IN THE PAST YEAR?NO POINTS0 INTERPRETATIONNEGATIVE RECREATIONAL DRUG USE DRUG USE?NO PATIENT DENIES ABUSE OR MISSUSED OF ANY MEDICATION. PATIENT DENIES USE OF ANY ILLEGAL SUBSTANCE INCLUDING MARIJUANA OR COCAINE. CAFFEINE CAFFEINE USE?YES 1 COFFEE DAILY SEXUAL HX HAD SEX IN THE LAST 12 MONTHS (VAGINAL, ORAL, OR ANAL)?YES WITHWOMEN ONLY USE PROTECTION?NO HAVE YOU EVER HAD AN STD?NO HIV / HEP-C SCREENING HIV TEST OFFERED TO PATIENT:YES DATE OFFERED:01/28/2017 TEST ACCEPTED:NO REASON:PATIENT DECLINED HEP-C TEST OFFERED TO PATIENT:NO RESTORATION [id number] BUDDHIST LANGUAGE LANGUAGES SPOKEN:TELUGU EDUCATION LEVEL OF EDUCATION:HIGH SCHOOL LEARNING BARRIERS / SPECIAL NEEDS CHANGE FROM LAST VISIT?NO BARRIERS TO LEARNING?NO HEARING IMPAIRED?YES :HEARING AIDES C/O INCREASED HEARING LOSS VISION IMPAIRED?NO COGNITIVELY IMPAIRED?NO READINESS TO LEARN?YES LEARNING PREFERENCES?NO LEARNING CAPABILITIES PRESENT?YES EMOTIONAL BARRIERS?NO SPECIAL DEVICES?NO FITTING ROOM ATTENDANT NEEDED?NO DOMESTIC VIOLENCE DO YOU FEEL SAFE IN YOUR ENVIRONMENT?YES OCCUPATION: DISABLED. DIET: REGULAR. EXERCISE: NO REGULAR EXERCISE. MARITAL STATUS: . OTHERS AT HOME: SPOUSE. PAIN CLINIC PFS, CLERGY, PUBLIC HEALTH REFERRALS PFS REFERRAL NEEDED?NO CLERGY REFERRAL NEEDED?NO PUBLIC HEALTH REFERRAL NEEDED?NO WAS THE PROVIDER NOTIFIED OF ANY PERTINENT INFO?NO HAS THE PATIENT BEEN EDUCATED REGARDING HIS/HER PLAN OF CARE?YES HAS THE PATIENT BEEN EDUCATED REGARDING PAIN, THE RISK FOR PAIN, THE IMPORTANCE OF EFFECTIVE PAIN MANAGEMENT, AND THE PAIN ASSESSMENT PROCESS?YES ADVANCE DIRECTIVE ADVANCE DIRECTIVE DISCUSSED WITH PATIENT:YES HCP-LAUREL VALENCIA 08/25/17 0945 REVIEWED WITH PT. ADREVIEWED WITH PATIENT 05/03/18 1540 JSREVIEWED WITH PT 05/19/18 1120 BV. HOSPITALIZATION/MAJOR DIAGNOSTIC PROCEDURE CHEST PAIN/DYSPNEA, R/O RI ([place]) 10/15 BACK SURGERY 01/2017 REVIEW OF SYSTEMS REVIEWED BY: PROVIDER: OMA POWELL MD . CONSTITUTIONAL: ANY CHANGE IN YOUR MEDICAL CONDITION? NO . CHILLS NO . FEVER NO . INFECTION: DO YOU HAVE NEW INFECTIONS? NO . DO YOU HAVE HISTORY OF MRSA? NO . MUSCULOSKELETAL: ANY NEW PATTERNS OF PAIN OR NUMBNESS? YES, PT COMPLAINS OF INCREASED PAIN INTENSITY IN RIGHT SIDE OF LOW BACK OVER THE PAST COUPLE MONTHS . GASTROENTEROLOGY: ANY NEW CHANGE IN BOWEL CONTROL? NO . GENITOURINARY: ANY NEW CHANGE IN BLADDER CONTROL? NO . IS THERE A CHANCE YOU COULD BE ? NO . HEMATOLOGY/LYMPH: DO YOU TAKE ANY BLOOD THINNERS? (FOR EXAMPLE- COUMADIN, PLAVIX, AGGRENOX, PLATEL, PRADAXA, OR XARELTO) NO . WHEN WAS YOUR LAST DOSE? DATE: TIME: . NEUROLOGY: HAVE YOU FALLEN IN THE PAST 12 MONTHS? NO . ANY NEW EXTREMITY NUMBNESS OR WEAKNESS? NO . CARDIOLOGY: DO YOU HAVE A PACEMAKER OR DEFIBRILLATOR? NO . RESPIRATORY: HAVE YOU BEEN SICK IN THE PAST WEEK? NO . FEVER NO . FLU LIKE SYMPTOMS? NO . COUGH NO . INTEGUMENTARY: DO YOU HAVE ANY RASHES OR OPEN SORES? NO . ALLERGIC/IMMUNO: ARE YOU ALLERGIC TO IV DYE? NO . ANY NEW ALLERGIES? NO . PSYCHIATRIC: DO YOU HAVE THOUGHTS OF HURTING YOURSELF OR SOMEONE ELSE? NO . ARE YOU ABUSED, NEGLECTED, OR IN AN UNSAFE ENVIRONMENT? NO . ENDOCRINOLOGY: ARE YOU DIABETIC? NO . OTHER: DO YOU NEED ANY PRESCRIPTIONS? NO . IF YES, PLEASE LIST: ____ . ANY NEW PROBLEMS WITH YOUR MEDICATIONS? NO . WHEN DID YOU LAST EAT? YES, 05/18/182299 . WHEN DID YOU LAST DRINK? 05/18/182299 . WHAT DID YOU LAST DRINK? WATER . NAME OF PERSON DRIVING YOU HOME? LAUREL . DO YOU HAVE ANY OTHER QUESTIONS OR CONCERNS NO . VITAL SIGNS WT 232.8 LBS, HT 68 IN, BMI 35.39 INDEX, BP 138/88 MM HG, HR 79 /MIN, RR 18 /MIN, TEMP 99.9 F, OXYGEN SAT % 98%, NA INITIALS SC 10:56, REVIEWED BY: BV. EXAMINATION GENERAL EXAMINATION: PATIENT IS ALERT O X 3 AND COOPERATIVE. PAIN INCREASES OVER THE LUMBAR FACET JOINTS WITH EXTENSION AND LATERAL ROTATION OF THE BACK. MRI OF THE LUMBAR SPINE DONE ON 10/28/2016 SHOWS FACET ARTHROPATHY CHANGES AT MULTIPLE LEVELS. ASSESSMENTS SPONDYLOSIS OF LUMBAR REGION WITHOUT MYELOPATHY OR RADICULOPATHY - M47.816 (PRIMARY) SPONDYLOSIS OF LUMBOSACRAL REGION WITHOUT MYELOPATHY OR RADICULOPATHY - M47.817 TREATMENT SPONDYLOSIS OF LUMBAR REGION WITHOUT MYELOPATHY OR RADICULOPATHY CLINICAL NOTES: WE DISCUSSED SEVERAL ISSUES WITH MR. VALENCIA'S PAIN MANAGEMENT CASE. DUE TO THE LUMBAR SPONDYLOSIS, I WOULD LIKE TO MOVE FORWARD WITH A RIGHT THERAPEUTIC LUMBAR FACET BLOCK AT THIS TIME. WE DISCUSSED THE BENEFITS, RISKS, AND ALTERNATIVES OF THE INJECTION AND THE PATIENT WOULD LIKE TO PROCEED. THE PATIENT WILL FOLLOW UP IN A FEW WEEKS. INSTRUCTIONS WERE GIVEN, QUESTIONS WERE ANSWERED, PATIENT REPORTS UNDERSTANDING AND AGREES WITH THE PLAN. I, RENALDO CORTES, DOCUMENTED THE ABOVE INFORMATION ACTING A SCRIBE FOR DR. POWELL. I HAVE REVIEWED THE ABOVE DOCUMENT, WRITTEN BY RENALDO LOPEZ AND I VERIFY THAT IT IS ACCURATE. PROCEDURES PN LUMBAR FACET BLOCK THERAPEUTIC PRE PROCEDURE DIAGNOSIS LUMBAR SPONDYLOSIS, LUMBOSACRAL SPONDYLOSIS POST PROCEDURE DIAGNOSIS LUMBAR SPONDYLOSIS, LUMBOSACRAL SPONDYLOSIS PROCEDURE RIGHT L4-L5 AND RIGHT L5-S1 LUMBAR FACET THERAPEUTIC BLOCK SURGEON DR. OMA POWELL GASKET INSPECTOR NONE ANESTHESIA LOCAL PRE PROCEDURE NOTE THE PATIENT HAS A HISTORY OF CHRONIC LOW BACK PAIN. I EVALUATE THE PATIENT AND REVIEWED THE CHART. I WENT OVER THE RISKS, ALTERNATIVES, AND BENEFITS ASSOCIATED WITH THIS PROCEDURE. THE PATIENT WOULD LIKE TO PROCEED AND GIVE CONSENT TO PERFORMED THE PROCEDURE. THE PATIENT DENIES UNEXPLAINABLE WEIGHT LOSS, FEVER, CHILLS, OR NEW CHANGES IN URINARY OR BOWEL CONTROL DESCRIPTION OF PROCEDURE THE PATIENT WAS BROUGHT TO THE PROCEDURE ROOM AND PLACED IN THE PRONE POSITION. THE LUMBOSACRAL AREA WAS CLEANED WITH CHLORAPREP SOLUTION AND DRAPED ASEPTICALLY. THE PROCEDURE WAS DONE UNDER STERILE CONDITIONS. I CHECKED LATERALITY AND THE LEVEL WHERE THE PROCEDURE WAS GOING TO BE PERFORMED WITH THE PATIENT AND THE SUPPORTING STAFF AT THE MOMENT OF THE TIME OUT IN THE PROCEDURE ROOM. UNDER FLUOROSCOPIC GUIDANCE, THE TARGET POINT WAS SELECTED AT THE RIGHT L4-L5 AND RIGHT L5-S1 FACET JOINT. TARGET POINT WAS SELECTED AFTER LATERAL ROTATION AND TILT OF THE MAGNIFIER OF THE C-ARM. LIDOCAINE 0.5% WAS USED TO NUMB THE SKIN AND THE SUBCUTANEOUS TISSUE BELOW IT. SPINAL NEEDLES, 22-GAUGE, WERE ADVANCED UNDER FLUOROSCOPIC GUIDANCE AND FOLLOWING PATIENT FEEDBACK UNTIL THE TARGETS WERE TOUCHED. THE POSITION OF THE NEEDLES WAS VERIFIED WITH AP AND LATERAL VIEWS. AFTER PROPER POSITION OF THE NEEDLES WAS ACHIEVED, ISOVUE-M DYE 30% 0.1 ML WAS INJECTED SHOWING ADEQUATE SPREAD OF THE DYE. THEN A SOLUTION OF 1.9 ML OF BUPIVACAINE 0.125% OF KENALOG 10 MG WAS INJECTED AT EACH SITE. THERE WAS NO EVIDENCE OF BLOOD, PARESTHESIA OR CEREBROSPINAL FLUID DURING THE PROCEDURE. THE PATIENT WAS SENT TO THE RECOVERY ROOM. THE PATIENT WAS MOVING THE EXTREMITIES AND DOING WELL. THERE WAS NO COMPLICATION DURING THE PROCEDURE. FLUOROSCOPY TIME WAS 26 SECONDS POST PROCEDURE NOTE THE PATIENT WILL BE SEEN IN A FOLLOW UP IN THE NEXT FEW WEEKS. INSTRUCTIONS WERE GIVEN, QUESTIONS WERE ANSWERED, AND THE PATIENT EXPRESSED UNDERSTANDING AND AGREES WITH THE PLAN. I, RENALDO CORTES, DOCUMENTED THE ABOVE INFORMATION ACTING A SCRIBE FOR DR. POWELL. I HAVE REVIEWED THE ABOVE DOCUMENT, WRITTEN BY RENALDO CORTES SCRIBE AND I VERIFY THAT IT IS ACCURATE. DIAGNOSTIC IMAGING [facility] FACET BLOCK (PAIN)[id number] PROCEDURE CODES 6045F RADXPS IN END [id number] PXD [id number] INJ PARAVERT F JNT L/S 1 LEV, MODIFIERS: RT [address] INJ PARAVERT F JNT L/S 2 LEV, MODIFIERS: RT DISPOSITION & COMMUNICATION FOLLOW UP 3 WEEKS ELECTRONICALLY SIGNED BY OMA POWELL MD, MD ON 06/05/2018 AT 01:16 PM EST DISCLAIMER : THIS IS A VISIT SUMMARY EXTRACTED FROM THE [employer] CHART. IT IS NOT A COPY OF THE [employer] PROGRESS NOTE. MTDD
== END ==
LOC: M PAIN 10:30
PROVIDERS: ATTEND Anesthesiology
DX: G89.29 Other chronic pain (principal); M47.816 Spondylosis without myelopathy or radiculopathy, lumbar region; M47.817 Spondylosis without myelopathy or radiculopathy, lumbosacral region; I10 Essential (primary) hypertension; K22.70 Barrett's esophagus without dysplasia; G47.30 Sleep apnea, unspecified; F32.9 Major depressive disorder, single episode, unspecified; F41.9 Anxiety disorder, unspecified; M06.9 Rheumatoid arthritis, unspecified; Z79.899 Other long term (current) drug therapy; Z88.0 Allergy status to penicillin
CPT/HCPCS: 64493; 64494; J3301; Q9967

== ENCOUNTER 2018-05-27 07:46 | Day surgery (SDC) | payer MEDICARE ==
[~2018-05-27] VITALS: Ht 175.3 cm; Wt 104.8 kg
[~2018-05-27 07:46] MED LIST changes: -BUPIVACAINE HCL 0.25% 30 ML VIAL As Ordered ONE; -ISOVUE-M 300 61% 15ML VIAL (Q9967) As Ordered ONE; -LIDOCAINE 1% SDV INJ 30 ML VIAL As Ordered ONE; +NS 1,000 ML IV ONE; +PROPOFOL 200 MG/20 ML VIAL As Ordered ONE; +PROPOFOL 500 MG/50 ML VIAL As Ordered ONE; -TRIAMCINOLONE ACETONIDE SUSP 40 MG/ML VIAL (J3301) As Ordered ONE; -diazePAM 5 MG TAB As Ordered ONE; -oxyCODONE 5MG TAB As Ordered ONE
[2018-05-27 10:00] VITALS: BP 151/91
--- NOTE | 2018-05-27 10:21 | ROOR ---
Patient Name: Tyler Burnett Procedure Date: 05/27/2018 8:40 AM Date of : 1965 Age: 52 Room: [facility] Gender: Male Note Status: Finalized Procedure: Upper GI endoscopy Indications: Surveillance for malignancy due to personal history of Humphrey's esophagus Providers: Rigoberto Vasquez MD Referring MD: ELIZA SHETTY Requesting Provider: Medicines: Monitored Anesthesia Care Complications: No immediate complications. Procedure: Pre-Anesthesia Assessment: - Prior to the procedure, a History and Physical was performed, and patient medications and allergies were reviewed. The patient is competent. The risks and benefits of the procedure and the sedation options and risks were discussed with the patient. All questions were answered and informed consent was obtained. Patient identification and proposed procedure were verified by the physician, the nurse and the anesthesiologist in the procedure room. Mental Status Examination: alert and oriented. Airway Examination: normal oropharyngeal airway and neck mobility. Respiratory Examination: clear to auscultation. CV Examination: normal. Prophylactic Antibiotics: The patient does not require prophylactic antibiotics. Prior Anticoagulants: The patient has taken no previous anticoagulant or antiplatelet agents. ASA Grade Assessment: II - A patient with mild systemic disease. After reviewing the risks and benefits, the patient was deemed in satisfactory condition to undergo the procedure. The anesthesia plan was to use monitored anesthesia care (MAC). Immediately prior to administration of medications, the patient was re-assessed for adequacy to receive sedatives. The heart rate, respiratory rate, oxygen saturations, blood pressure, adequacy of pulmonary ventilation, and response to care were monitored throughout the procedure. The physical status of the patient was re-assessed after the procedure. The Endoscope was introduced through the mouth, and advanced to the second part of duodenum. The upper GI endoscopy was accomplished without difficulty. The patient tolerated the procedure well. Findings: The Z-line was irregular and was found 41 cm from the incisors. Biopsies were taken with a cold forceps for histology. Verification of patient identification for the specimen was done by the physician and nurse using the patient's name, date and medical record number. Estimated blood loss was minimal. Diffuse mild inflammation characterized by erythema and granularity was found in the gastric body and in the gastric antrum. Biopsies were taken with a cold forceps for Helicobacter pylori testing. The duodenal bulb and second portion of the duodenum were normal. Impression: - Z-line irregular, 41 cm from the incisors. Biopsied. - Gastritis. Biopsied. - Normal duodenal bulb and second portion of the duodenum. Recommendation: - Patient has a contact number available for emergencies. The signs and symptoms of potential delayed complications were discussed with the patient. Return to normal activities tomorrow. Written discharge instructions were provided to the patient. - Resume previous diet. - Continue present medications. - Follow an antireflux regimen. - Await pathology results. - Repeat upper endoscopy in 3 years for surveillance based on pathology results. - Based on the biopsy results you will receive a phone call from GI clinic in 2-3 weeks to review the pathology results AND/OR your results will be faxed to your Primary care physician. - Return to primary care physician. Rigoberto Vasquez MD Rigoberto Vasquez MD 05/27/2018 10:21:02 AM This report has been signed electronically. Number of Addenda: 0 Note Initiated On: 05/27/2018 8:40 AM Estimated Blood Loss: Estimated blood loss was minimal.
--- NOTE | 2018-05-27 10:26 | ROOR ---
Patient Name: Tyler Burnett Procedure Date: 05/27/2018 8:41 AM Date of : 1965 Age: 52 Room: [facility] Gender: Male Note Status: Finalized Procedure: Colonoscopy Indications: Screening in patient at increased risk: Family history of 1st-degree relative with colorectal cancer before age 60 years Providers: Rigoberto Vasquez MD Referring MD: ELIZA SHETTY Requesting Provider: Medicines: Monitored Anesthesia Care Complications: No immediate complications. Procedure: Pre-Anesthesia Assessment: - Prior to the procedure, a History and Physical was performed, and patient medications and allergies were reviewed. The patient is competent. The risks and benefits of the procedure and the sedation options and risks were discussed with the patient. All questions were answered and informed consent was obtained. Patient identification and proposed procedure were verified by the physician, the nurse and the anesthesiologist in the procedure room. Mental Status Examination: alert and oriented. Airway Examination: normal oropharyngeal airway and neck mobility. Respiratory Examination: clear to auscultation. CV Examination: normal. Prophylactic Antibiotics: The patient does not require prophylactic antibiotics. Prior Anticoagulants: The patient has taken no previous anticoagulant or antiplatelet agents. ASA Grade Assessment: II - A patient with mild systemic disease. After reviewing the risks and benefits, the patient was deemed in satisfactory condition to undergo the procedure. The anesthesia plan was to use monitored anesthesia care (MAC). Immediately prior to administration of medications, the patient was re-assessed for adequacy to receive sedatives. The heart rate, respiratory rate, oxygen saturations, blood pressure, adequacy of pulmonary ventilation, and response to care were monitored throughout the procedure. The physical status of the patient was re-assessed after the procedure. The Colonoscope was introduced through the anus and advanced to the terminal ileum, with identification of the appendiceal orifice and IC valve. The colonoscopy was performed without difficulty. The patient tolerated the procedure well. The quality of the bowel preparation was good. The terminal ileum, ileocecal valve, appendiceal orifice, and rectum were photographed. Scope insertion time was 4 minutes. Scope withdrawal time was 10 minutes. The total duration of the procedure was 14 minutes. Findings: The perianal and digital rectal examinations were normal. The terminal ileum appeared normal. A 3 mm polyp was found in the rectum. The polyp was sessile. The polyp was removed with a hot biopsy forceps. Resection and retrieval were complete. Verification of patient identification for the specimen was done by the physician and nurse using the patient's name, date and medical record number. Estimated blood loss was minimal. Multiple small and large-mouthed diverticula were found from sigmoid to descending colon. There was no evidence of diverticular bleeding. Non-bleeding external and internal hemorrhoids were found during retroflexion. The hemorrhoids were medium-sized. Impression: - The examined portion of the ileum was normal. - One 3 mm polyp in the rectum, removed with a hot biopsy forceps. Resected and retrieved. - Moderate diverticulosis from sigmoid to descending colon. There was no evidence of diverticular bleeding. - Non-bleeding external and internal hemorrhoids. Recommendation: - Patient has a contact number available for emergencies. The signs and symptoms of potential delayed complications were discussed with the patient. Return to normal activities tomorrow. Written discharge instructions were provided to the patient. - High fiber diet. - Continue present medications. - Await pathology results. - Repeat colonoscopy in 5 years for surveillance based on pathology results. - Based on the biopsy results you will receive a phone call from GI clinic in 2-3 weeks to review the pathology results AND/OR your results will be faxed to your Primary care physician. - Return to primary care physician. Rigoberto Vasquez MD Rigoberto Vasquez MD 05/27/2018 10:25:27 AM This report has been signed electronically. Number of Addenda: 0 Note Initiated On: 05/27/2018 8:41 AM Estimated Blood Loss: Estimated blood loss was minimal.
== END 2018-05-27 10:00 | disposition home or self-care (01) ==
LOC: M OPP 07:46
PROVIDERS: ATTEND Internal Medicine Gastroenterology
DX: Z12.11 Encounter for screening for malignant neoplasm of colon (principal); Z80.0 Family history of malignant neoplasm of digestive organs; K64.8 Other hemorrhoids; K62.1 Rectal polyp; K57.30 Diverticulosis of large intestine without perforation or abscess without bleeding; K22.8 Other specified diseases of esophagus; K29.70 Gastritis, unspecified, without bleeding; K22.70 Barrett's esophagus without dysplasia; G47.30 Sleep apnea, unspecified; D64.9 Anemia, unspecified; Z79.899 Other long term (current) drug therapy; Z88.0 Allergy status to penicillin; Z88.8 Allergy status to other drugs, medicaments and biological substances; Z87.19 Personal history of other diseases of the digestive system

== ENCOUNTER → 2018-06-03 | Outpatient (CLI) | payer MEDICARE ==
[~2018-06-03] MED LIST changes: -NS 1,000 ML IV ONE; -PROPOFOL 200 MG/20 ML VIAL As Ordered ONE; -PROPOFOL 500 MG/50 ML VIAL As Ordered ONE
--- NOTE | 2018-06-13 00:02 | ECWPNPC ---
PATIENT NAME: KIMBERLEY VALENCIA : 1965 GENDER: MALE VISIT DATE: 06/03/2018 DISCHARGE DATE: 06/03/18 1417 VISIT LOCKED DATE TIME: PHYSICIAN: OMA POWELL MD PHYSICIAN PAGER NO: TQYL OA [phone] RESOURCE: OMA POWELL MD REASON FOR APPOINTMENT 1. POST PROC HISTORY OF PRESENT ILLNESS HISTORY OF PRESENT ILLNESS: PAIN THE PATIENT DESCRIBES THE PAIN... 52 YEAR OLD MALE PATIENT WITH A HISTORY OF CHRONIC LOW BACK PAIN. THE PATIENT DESCRIBES THE PAIN ACHING AND CONTINUOUS WITH A PAIN SCORE OF 3-7/10 DEPENDING ON PHYSICAL ACTIVITY. THE PATIENT WAS HERE FOR A THERAPEUTIC LUMBAR FACET BLOCK ON 05/19/2018 AND REPORTS HAVING MORE THAN 80% PAIN RELIEF FOR SEVERAL WEEKS. THE PATIENT SAYS THAT HE NOW HAS PAIN FROM HIS LEFT LEG. THE PATIENT HAS HAD EPIDURALS IN THE PAST AND SAYS THAT THEY HAVE HELPED WITH HIS LEG PAIN. PATIENT DENIES UNEXPLAINABLE WEIGHT LOSS, FEVER, CHILLS, NEW CHANGES ON HIS URINARY OR BOWEL CONTROL. FALL RISK SCREENING: SCREENING : NO FALLS IN THE PAST YEAR. CURRENT MEDICATIONS TAKING ARTIFICIAL TEARS 0.4 % SOLUTION 1 DROP INTO AFFECTED EYE NEEDED OPHTHALMIC ONCE A DAY TAKING NEXIUM 24HR 20 MG CAPSULE DELAYED RELEASE 1 CAPSULE ORALLY ONCE A DAY TAKING TESTOSTERONE CYPIONATE 200 MG/ML OIL 0.8 ML INTRAMUSCULAR(DR KIERRA ELMORE) EVERY 10 DAYS TAKING RESTASIS 0.05 % EMULSION 1 DROP INTO AFFECTED EYE OPHTHALMIC TWICE A DAY TAKING FERROUS SULFATE 325 (65 FE) MG TABLET 1 TABLET ORALLY ONCE A DAY TAKING AMLODIPINE BESYLATE 10 MG TABLET 1 TABLET ORALLY ONCE A DAY TAKING LISINOPRIL 10 MG TABLET 1 TABLET ORALLY ONCE A DAY TAKING VITAMIN D3 2000 UNIT CAPSULE 1 CAPSULE ORALLY ONCE A DAY TAKING OXYCODONE-ACETAMINOPHEN 10-325 MG TABLET 1 TABLET NEEDED ORALLY EVERY 6 HRS TAKING CLONAZEPAM 0.5 MG TABLET DISPERSIBLE 1-2 TABLET ON THE TONGUE AND ALLOW TO DISSOLVE ORALLY AT BEDTIME NEEDED FOR INSOMNIA AND RESTLESS LEGS MDD:2 NOT-TAKING LISINOPRIL-HYDROCHLOROTHIAZIDE 20-25 MG TABLET 1 TABLET ORALLY ONCE A DAY NOT-TAKING TIZANIDINE HCL 4 MG TABLET 1 TABLET NEEDED ORALLY THREE TIMES A DAY, NOTES: NONE TAKEN RECENTLY NOT-TAKING VITAMIN D 2000 UNIT CAPSULE 1 CAPSULE ORALLY DAILY NOT-TAKING MECLIZINE HCL 25 MG TABLET CHEWABLE 1 TABLET NEEDED ORALLY ONCE A DAY NOT-TAKING FEXOFENADINE HCL 180 MG TABLET 1 TABLET NEEDED ORALLY ONCE A DAY NOT-TAKING PERCOCET 10-325 MG TABLET 1 TABLET NEEDED ORALLY EVERY 6 HRS MDD4 NOT-TAKING CYMBALTA 30 MG CAPSULE DELAYED RELEASE PARTICLES 1 CAPSULE ORALLY ONCE A DAY NOT-TAKING TOPIRAMATE 25 MG TABLET 1 TABLET ORALLY TWICE A DAY MEDICATION LIST REVIEWED AND RECONCILED WITH THE PATIENT PAST MEDICAL HISTORY BARRETS ESOPHAGUS HYPERTENSION SLEEP APNEA [place] WITH CPAP ([facility]) BACK PAIN - ([facility]) HYPOTESTOSTERONEMIA (C. RAMÍRE[facility]) MAJOR DEPRESSION, SINGLE EPISODE (MANISH) ANXIETY OA (MULTIPLE LOCATIONS) ASCVD 10-YEAR RISK IS 5.3% IN 08/2016 OSCAR'S ESOPHAGUS: GASTRO IN [place] ALLERGIES PENICILLIN (FOR ALLERGIES USE ONLY): FEET SWELLS: ALLERGY SURGICAL HISTORY TONSILLECTOMY CHILD BILATERAL CARPAL TUNNEL (FISH) 2009 EGD/COLONOSCOPY (KATHRYN IN [place]) 11/2011 LEFT ELBOW CUBITAL TUNNEL TRANSLATION (FISH) 2012 RIGHT CARPAL TUNNEL 07/05/13 COLO/EGD- KATHRYN-[place]- MILD ESOPHAGITIS 05/20 BACK SURGERY- DR DAMIAN FELIX 01/2017 FAMILY HISTORY FATHER: 70 YRS, PROSTATE CA AT AGE 65, DIAGNOSED WITH HYPERTENSION MOTHER: ALIVE 76 YRS, DIAGNOSED WITH DIABETES SIBLINGS: BROTHER CROHN'S SISTER THYROID DISEASE DAUGHTER(S): ALIVE, DAUGHTER MVA 1DAUGHTER(S) . SOCIAL HISTORY GENERAL: TOBACCO USE ARE YOU A:NONSMOKER BMI CARE GOAL FOLLOW-UP ABOVE NORMAL BMI FOLLOW-UPLIFESTYLE EDUCATION REGARDING DIET ALCOHOL SCREENING DID YOU HAVE A DRINK CONTAINING ALCOHOL IN THE PAST YEAR?NO POINTS0 INTERPRETATIONNEGATIVE RECREATIONAL DRUG USE DRUG USE?NO PATIENT DENIES ABUSE OR MISSUSED OF ANY MEDICATION. PATIENT DENIES USE OF ANY ILLEGAL SUBSTANCE INCLUDING MARIJUANA OR COCAINE. CAFFEINE CAFFEINE USE?YES 1 COFFEE DAILY SEXUAL HX HAD SEX IN THE LAST 12 MONTHS (VAGINAL, ORAL, OR ANAL)?YES WITHWOMEN ONLY USE PROTECTION?NO HAVE YOU EVER HAD AN STD?NO HIV / HEP-C SCREENING HIV TEST OFFERED TO PATIENT:YES DATE OFFERED:01/28/2017 TEST ACCEPTED:NO REASON:PATIENT DECLINED HEP-C TEST OFFERED TO PATIENT:NO EVANGELICAL [id number] ANGLICAN LANGUAGE LANGUAGES SPOKEN:KOREAN EDUCATION LEVEL OF EDUCATION:HIGH SCHOOL LEARNING BARRIERS / SPECIAL NEEDS CHANGE FROM LAST VISIT?NO BARRIERS TO LEARNING?NO HEARING IMPAIRED?YES :HEARING AIDES C/O INCREASED HEARING LOSS VISION IMPAIRED?NO COGNITIVELY IMPAIRED?NO READINESS TO LEARN?YES LEARNING PREFERENCES?NO LEARNING CAPABILITIES PRESENT?YES EMOTIONAL BARRIERS?NO SPECIAL DEVICES?NO MAJOR CASE DETECTIVE NEEDED?NO DOMESTIC VIOLENCE DO YOU FEEL SAFE IN YOUR ENVIRONMENT?YES OCCUPATION: DISABLED. DIET: REGULAR. EXERCISE: NO REGULAR EXERCISE. MARITAL STATUS: . OTHERS AT HOME: SPOUSE. PAIN CLINIC PFS, CLERGY, PUBLIC HEALTH REFERRALS PFS REFERRAL NEEDED?NO CLERGY REFERRAL NEEDED?NO PUBLIC HEALTH REFERRAL NEEDED?NO WAS THE PROVIDER NOTIFIED OF ANY PERTINENT INFO?NO HAS THE PATIENT BEEN EDUCATED REGARDING HIS/HER PLAN OF CARE?YES HAS THE PATIENT BEEN EDUCATED REGARDING PAIN, THE RISK FOR PAIN, THE IMPORTANCE OF EFFECTIVE PAIN MANAGEMENT, AND THE PAIN ASSESSMENT PROCESS?YES ADVANCE DIRECTIVE ADVANCE DIRECTIVE DISCUSSED WITH PATIENT:YES HCP-LAUREL VALENCIA 08/25/17 0945 REVIEWED WITH PT. ADREVIEWED WITH PATIENT 05/03/18 1540 JSREVIEWED WITH PT 05/19/18 1120 BVREVIEWED WITH PT 06/03/18 1316 BV. HOSPITALIZATION/MAJOR DIAGNOSTIC PROCEDURE CHEST PAIN/DYSPNEA, R/O IN ([place]) 10/15 BACK SURGERY 01/2017 REVIEW OF SYSTEMS REVIEWED BY: PROVIDER: OMA POWELL MD . CONSTITUTIONAL: ANY CHANGE IN YOUR MEDICAL CONDITION? NO . CHILLS NO . FEVER NO . INFECTION: DO YOU HAVE NEW INFECTIONS? NO . DO YOU HAVE HISTORY OF MRSA? NO . MUSCULOSKELETAL: ANY NEW PATTERNS OF PAIN OR NUMBNESS? YES, PT HAS BEEN HAVING INCREASING HEADACHES AND LEFT SHOULDER PAIN OVER THE PAST FEW WEEKS . GASTROENTEROLOGY: ANY NEW CHANGE IN BOWEL CONTROL? NO . GENITOURINARY: ANY NEW CHANGE IN BLADDER CONTROL? NO . IS THERE A CHANCE YOU COULD BE ? NO . HEMATOLOGY/LYMPH: DO YOU TAKE ANY BLOOD THINNERS? (FOR EXAMPLE- COUMADIN, PLAVIX, AGGRENOX, PLATEL, PRADAXA, OR XARELTO) NO . WHEN WAS YOUR LAST DOSE? DATE: TIME: . NEUROLOGY: HAVE YOU FALLEN IN THE PAST 12 MONTHS? NO . ANY NEW EXTREMITY NUMBNESS OR WEAKNESS? NO . CARDIOLOGY: DO YOU HAVE A PACEMAKER OR DEFIBRILLATOR? NO . RESPIRATORY: HAVE YOU BEEN SICK IN THE PAST WEEK? NO . FEVER NO . FLU LIKE SYMPTOMS? NO . COUGH NO . INTEGUMENTARY: DO YOU HAVE ANY RASHES OR OPEN SORES? NO . ALLERGIC/IMMUNO: ARE YOU ALLERGIC TO IV DYE? NO . ANY NEW ALLERGIES? NO . PSYCHIATRIC: DO YOU HAVE THOUGHTS OF HURTING YOURSELF OR SOMEONE ELSE? NO . ARE YOU ABUSED, NEGLECTED, OR IN AN UNSAFE ENVIRONMENT? NO . ENDOCRINOLOGY: ARE YOU DIABETIC? NO . OTHER: DO YOU NEED ANY PRESCRIPTIONS? NO . IF YES, PLEASE LIST: ____ . ANY NEW PROBLEMS WITH YOUR MEDICATIONS? NO . WHEN DID YOU LAST EAT? ____ . WHEN DID YOU LAST DRINK? ____ . WHAT DID YOU LAST DRINK? ____ . NAME OF PERSON DRIVING YOU HOME? ____ . DO YOU HAVE ANY OTHER QUESTIONS OR CONCERNS NO . VITAL SIGNS WT 234 LBS, HT 68 IN, BMI 35.58 INDEX, BP 146/76 MM HG, HR 85 /MIN, RR 18 /MIN, TEMP 97.5 F, OXYGEN SAT % 95%, NA INITIALS AW 1257, REVIEWED BY: BV. EXAMINATION GENERAL EXAMINATION: PATIENT IS ALERT O X 3 AND COOPERATIVE. ANTALGIC GAIT. PATIENT IS LIMPING FROM HIS LEFT LEG. MRI OF THE LUMBAR SPINE DONE ON 10/28/2016 BULGING DISCS AND POST LAMINECTOMY CHANGES AT MULTIPLE LEVELS. ASSESSMENTS LUMBAR POST-LAMINECTOMY SYNDROME - M96.1 (PRIMARY) INTERVERTEBRAL DISC DISORDER WITH RADICULOPATHY OF LUMBAR REGION - M51.16 TREATMENT LUMBAR POST-LAMINECTOMY SYNDROME CLINICAL NOTES: WE DISCUSSED SEVERAL ISSUES WITH MR. VALENCIA'S PAIN MANAGEMENT CASE. DUE TO THE LUMBAR RADICULOPATHY, I WOULD LIKE TO MOVE FORWARD WITH A LUMBAR V/S CAUDAL EPIDURAL STEROID INJECTION AT THIS TIME. WE DISCUSSED THE BENEFITS, RISKS, AND ALTERNATIVES OF THE INJECTION AND THE PATIENT WOULD LIKE TO PROCEED. THE PATIENT WILL FOLLOW UP WITH A NURSE PRACTITIONER AFTER THE INJECTION. INSTRUCTIONS WERE GIVEN, QUESTIONS WERE ANSWERED, PATIENT REPORTS UNDERSTANDING AND AGREES WITH THE PLAN. I, RENALDO CORTES, DOCUMENTED THE ABOVE INFORMATION ACTING A SCRIBE FOR DR. POWELL. I HAVE REVIEWED THE ABOVE DOCUMENT, WRITTEN BY RENALDO LOPEZ AND I VERIFY THAT IT IS ACCURATE. PREVENTIVE MEDICINE PAIN CLINIC TEACHING: PROCEDURE TEACHING PT GIVEN WRITTEN AND VERBAL PRE-PROCEDURE INSTRUCTIONS. PT VERBALIZED UNDERSTANDING OF ALL INSTRUCTIONS. GABI SINGH 06/03/2018 2:19:38 PM > . PROCEDURE CODES FA211 ESTABILISHED PATIENT [facility] FACILITY CHARGE G8427 CURRENT MEDS W/DOSAGES DOCUMENTED G8730 PAIN ASSESS POS TOOL F/U PLAN DOC DISPOSITION & COMMUNICATION FOLLOW UP 4 WEEKS ELECTRONICALLY SIGNED BY OMA POWELL MD, ON 06/12/2018 AT 08:51 AM EDT DISCLAIMER : THIS IS A VISIT SUMMARY EXTRACTED FROM THE [employer] CHART. IT IS NOT A COPY OF THE [employer] PROGRESS NOTE. EDISOND
== END ==
LOC: M PAIN 12:45
PROVIDERS: ATTEND Anesthesiology
DX: M96.1 Postlaminectomy syndrome, not elsewhere classified (principal); M51.16 Intervertebral disc disorders with radiculopathy, lumbar region; I10 Essential (primary) hypertension; G47.33 Obstructive sleep apnea (adult) (pediatric); Z86.59 Personal history of other mental and behavioral disorders; M19.90 Unspecified osteoarthritis, unspecified site; Z88.0 Allergy status to penicillin; Z79.899 Other long term (current) drug therapy

== ENCOUNTER → 2018-07-06 | Outpatient (CLI) | payer MEDICARE ==
[~2018-07-06] MED LIST changes: -/ESCI10TA PEG; -ACET50TA PO; +ALLE24TA7 PO; -ALLE24TA8 PO; -ERYT TOP; +LEXA1TAB PEG; +LISI40TA52 PO; -LISI40TAB PO; +MAPA500T17 PO; +OXYC1TAB23 PO; -PERCOCET PO; +[UNRECOGNIZED DRUG - CODE] TOP
--- NOTE | 2018-07-21 01:14 | ECWPNPC ---
PATIENT NAME: KIMBERLEY VALENCIA : 1965 GENDER: MALE VISIT DATE: 07/06/2018 DISCHARGE DATE: 07/06/18 1123 VISIT LOCKED DATE TIME: PHYSICIAN: WILLIAM FREEMAN PHYSICIAN PAGER NO: TEXT RG [phone] RESOURCE: WILLIAM FREEMAN REASON FOR APPOINTMENT 1. POST PROC LOOK FOR PARKING HISTORY OF PRESENT ILLNESS HISTORY OF PRESENT ILLNESS: HERE FOR POST PROCEDURE F/U.HAD RIGHT LUMBAR THERAPEUTIC BLOCK ON 05/19.FEELS THIS WAS HELPFUL FOR LOW BACK PAIN AND CONTINUES TO BENEFIT FROM THIS TODAY. CHIEF AREA OF PAIN IS LEFT LEG RADICULAR PAIN .DISCUSSED CAUDAL EPIDURAL.RATING PAIN VAS 4/10. PAIN THE PATIENT DESCRIBES THE PAIN... FALL RISK SCREENING: SCREENING :NO FALLS REPORTED IN THE LAST YEAR CURRENT MEDICATIONS TAKING ARTIFICIAL TEARS 0.4 % SOLUTION 1 DROP INTO AFFECTED EYE NEEDED OPHTHALMIC ONCE A DAY TAKING NEXIUM 24HR 20 MG CAPSULE DELAYED RELEASE 1 CAPSULE ORALLY ONCE A DAY TAKING TESTOSTERONE CYPIONATE 200 MG/ML OIL 0.8 ML INTRAMUSCULAR(DR KIERRA ELMORE) EVERY 10 DAYS TAKING RESTASIS 0.05 % EMULSION 1 DROP INTO AFFECTED EYE OPHTHALMIC TWICE A DAY TAKING AMLODIPINE BESYLATE 10 MG TABLET 1 TABLET ORALLY ONCE A DAY TAKING VITAMIN D3 2000 UNIT CAPSULE 1 CAPSULE ORALLY ONCE A DAY TAKING OXYCODONE-ACETAMINOPHEN 10-325 MG TABLET 1 TABLET NEEDED ORALLY EVERY 6 HRS TAKING LISINOPRIL-HYDROCHLOROTHIAZIDE 20-25 MG TABLET 1 TABLET ORALLY ONCE A DAY NOT-TAKING FERROUS SULFATE 325 (65 FE) MG TABLET 1 TABLET ORALLY ONCE A DAY NOT-TAKING LISINOPRIL 10 MG TABLET 1 TABLET ORALLY ONCE A DAY NOT-TAKING CLONAZEPAM 0.5 MG TABLET DISPERSIBLE 1-2 TABLET ON THE TONGUE AND ALLOW TO DISSOLVE ORALLY AT BEDTIME NEEDED FOR INSOMNIA AND RESTLESS LEGS MDD:2 NOT-TAKING LISINOPRIL-HYDROCHLOROTHIAZIDE 20-25 MG TABLET 1 TABLET ORALLY ONCE A DAY NOT-TAKING TIZANIDINE HCL 4 MG TABLET 1 TABLET NEEDED ORALLY THREE TIMES A DAY, NOTES: NONE TAKEN RECENTLY NOT-TAKING VITAMIN D 2000 UNIT CAPSULE 1 CAPSULE ORALLY DAILY NOT-TAKING MECLIZINE HCL 25 MG TABLET CHEWABLE 1 TABLET NEEDED ORALLY ONCE A DAY NOT-TAKING FEXOFENADINE HCL 180 MG TABLET 1 TABLET NEEDED ORALLY ONCE A DAY NOT-TAKING PERCOCET 10-325 MG TABLET 1 TABLET NEEDED ORALLY EVERY 6 HRS MDD4 NOT-TAKING CYMBALTA 30 MG CAPSULE DELAYED RELEASE PARTICLES 1 CAPSULE ORALLY ONCE A DAY NOT-TAKING TOPIRAMATE 25 MG TABLET 1 TABLET ORALLY TWICE A DAY MEDICATION LIST REVIEWED AND RECONCILED WITH THE PATIENT PAST MEDICAL HISTORY HYPERTENSION BARRETS ESOPHAGUS SLEEP APNEA TX WITH CPAP ([facility]) BACK PAIN - ([facility]) HYPOTESTOSTERONEMIA (C. FISH) MAJOR DEPRESSION, SINGLE EPISODE (MANISH) ANXIETY OA (MULTIPLE LOCATIONS) ASCVD 10-YEAR RISK IS 5.3% IN 08/2016 OSCAR'S ESOPHAGUS: GASTRO IN [place] IBS ALLERGIES PENICILLIN (FOR ALLERGIES USE ONLY): FEET SWELLS - ALLERGY SURGICAL HISTORY TONSILLECTOMY CHILD BILATERAL CARPAL TUNNEL (FISH) 2009 EGD/COLONOSCOPY ([facility]HR[facility] IN [place]) 11/2011 LEFT ELBOW CUBITAL TUNNEL TRANSLATION (FISH) 2012 RIGHT CARPAL TUNNEL 07/05/13 COLO/EGD- KATHRYN-SY[facility]- MILD ESOPHAGITIS 05/20 BACK SURGERY- DR DAMIAN FELIX 01/2017 FAMILY HISTORY FATHER: 70 YRS, PROSTATE CA AT AGE 65, DIAGNOSED WITH HYPERTENSION MOTHER: ALIVE 76 YRS, DIABETES SIBLINGS: BROTHER CROHN'S SISTER THYROID DISEASE DAUGHTER(S): ALIVE, DAUGHTER MVA 1DAUGHTER(S) . SOCIAL HISTORY GENERAL: TOBACCO USE ARE YOU A:NONSMOKER LATEX QUESTIONNAIRE LATEX ALLERGY : HAVE YOU EVER DEVELOPED ANY TYPE OF REACTION AFTER HANDLING LATEX PRODUCTS SUCH RUBBER GLOVES, CONDOMS, DIAPHRAGMS, BALLOONS, SOCKS, OR UNDERWEAR?NO LATEX ALLERGY : HAVE YOU EVER DEVELOPED ANY TYPE OF REACTION DURING OR AFTER DENTAL APPOINTMENT, VAGINAL/RECTAL EXAMINATION, SURGICAL PROCEDURE, OR ANY OTHER EXPOSURE?NO LATEX RISK : HAVE YOU EVER HAD ANY DIFFICULTY BREATHING OR HIVES AFTER EATING OR HANDLING ANY FRUITS, OR VEGETABLES; SUCH KIWI, BANANAS, STONE FRUITS, OR CHESTNUTSNO LATEX RISK : DO YOU HAVE A PREVIOUS PERSONAL HISTORY OF MORE THAN NINE SURGERIES, SPINA BIFIDA, OR REPEATED CATHERTIZATIONS? NO LATEX RISK : ARE YOU FREQUENTLY EXPOSED TO LATEX PRODUCTS IN YOUR OCCUPATION?NO DATE ASKED : 07/06/2018 BMI CARE GOAL FOLLOW-UP ABOVE NORMAL BMI FOLLOW-UPLIFESTYLE EDUCATION REGARDING DIET ALCOHOL SCREENING DID YOU HAVE A DRINK CONTAINING ALCOHOL IN THE PAST YEAR?NO POINTS0 INTERPRETATIONNEGATIVE RECREATIONAL DRUG USE DRUG USE?NO PATIENT DENIES ABUSE OR MISSUSED OF ANY MEDICATION. PATIENT DENIES USE OF ANY ILLEGAL SUBSTANCE INCLUDING MARIJUANA OR COCAINE. CAFFEINE CAFFEINE USE?YES 1 COFFEE DAILY SEXUAL HX HAD SEX IN THE LAST 12 MONTHS (VAGINAL, ORAL, OR ANAL)?YES WITHWOMEN ONLY USE PROTECTION?NO HAVE YOU EVER HAD AN STD?NO HIV / HEP-C SCREENING HIV TEST OFFERED TO PATIENT:YES DATE OFFERED:01/28/2017 TEST ACCEPTED:NO REASON:PATIENT DECLINED HEP-C TEST OFFERED TO PATIENT:NO CHURCH [id number] TAOISM LANGUAGE LANGUAGES SPOKEN:BELGIAN EDUCATION LEVEL OF EDUCATION:HIGH SCHOOL LEARNING BARRIERS / SPECIAL NEEDS CHANGE FROM LAST VISIT?NO BARRIERS TO LEARNING?NO HEARING IMPAIRED?YES :HEARING AIDES C/O INCREASED HEARING LOSS VISION IMPAIRED?NO COGNITIVELY IMPAIRED?NO READINESS TO LEARN?YES LEARNING PREFERENCES?NO LEARNING CAPABILITIES PRESENT?YES EMOTIONAL BARRIERS?NO SPECIAL DEVICES?NO DOCK OPERATOR NEEDED?NO DOMESTIC VIOLENCE DO YOU FEEL SAFE IN YOUR ENVIRONMENT?YES OCCUPATION: DISABLED. DIET: REGULAR. EXERCISE: NO REGULAR EXERCISE. MARITAL STATUS: . OTHERS AT HOME: SPOUSE. PAIN CLINIC PFS, CLERGY, PUBLIC HEALTH REFERRALS PFS REFERRAL NEEDED?NO CLERGY REFERRAL NEEDED?NO PUBLIC HEALTH REFERRAL NEEDED?NO WAS THE PROVIDER NOTIFIED OF ANY PERTINENT INFO?NO HAS THE PATIENT BEEN EDUCATED REGARDING HIS/HER PLAN OF CARE?YES HAS THE PATIENT BEEN EDUCATED REGARDING PAIN, THE RISK FOR PAIN, THE IMPORTANCE OF EFFECTIVE PAIN MANAGEMENT, AND THE PAIN ASSESSMENT PROCESS?YES ADVANCE DIRECTIVE ADVANCE DIRECTIVE DISCUSSED WITH PATIENT:YES HCP-LAUREL VALENCIA 08/25/17 0966 REVIEWED WITH PT. ADREVIEWED WITH PATIENT 05/03/18 1540 JSREVIEWED WITH PT 05/19/18 1120 BVREVIEWED WITH PT 06/03/18 1316 BVREVIEWED WITH PATIENT 07/06/18 1039 JS. HOSPITALIZATION/MAJOR DIAGNOSTIC PROCEDURE CHEST PAIN/DYSPNEA, R/O GA ([place]) 10/15 BACK SURGERY 01/2017 REVIEW OF SYSTEMS REVIEWED BY: PROVIDER: WILLIAM DYE . CONSTITUTIONAL: ANY CHANGE IN YOUR MEDICAL CONDITION? NO . CHILLS NO . FEVER NO . INFECTION: DO YOU HAVE NEW INFECTIONS? NO . DO YOU HAVE HISTORY OF MRSA? NO . MUSCULOSKELETAL: ANY NEW PATTERNS OF PAIN OR NUMBNESS? NO . GASTROENTEROLOGY: ANY NEW CHANGE IN BOWEL CONTROL? NO . GENITOURINARY: ANY NEW CHANGE IN BLADDER CONTROL? NO . IS THERE A CHANCE YOU COULD BE ? NO . HEMATOLOGY/LYMPH: DO YOU TAKE ANY BLOOD THINNERS? (FOR EXAMPLE- COUMADIN, PLAVIX, AGGRENOX, PLATEL, PRADAXA, OR XARELTO) NO . WHEN WAS YOUR LAST DOSE? DATE: TIME: . NEUROLOGY: HAVE YOU FALLEN IN THE PAST 12 MONTHS? NO . ANY NEW EXTREMITY NUMBNESS OR WEAKNESS? NO . CARDIOLOGY: DO YOU HAVE A PACEMAKER OR DEFIBRILLATOR? NO . RESPIRATORY: HAVE YOU BEEN SICK IN THE PAST WEEK? NO . FEVER NO . FLU LIKE SYMPTOMS? NO . COUGH NO . INTEGUMENTARY: DO YOU HAVE ANY RASHES OR OPEN SORES? NO . ALLERGIC/IMMUNO: ARE YOU ALLERGIC TO IV DYE? NO . ANY NEW ALLERGIES? NO . PSYCHIATRIC: DO YOU HAVE THOUGHTS OF HURTING YOURSELF OR SOMEONE ELSE? NO . ARE YOU ABUSED, NEGLECTED, OR IN AN UNSAFE ENVIRONMENT? NO . ENDOCRINOLOGY: ARE YOU DIABETIC? NO . OTHER: DO YOU NEED ANY PRESCRIPTIONS? NO . IF YES, PLEASE LIST: ____ . ANY NEW PROBLEMS WITH YOUR MEDICATIONS? NO . WHEN DID YOU LAST EAT? ____ . WHEN DID YOU LAST DRINK? ____ . WHAT DID YOU LAST DRINK? ____ . NAME OF PERSON DRIVING YOU HOME? ____ . DO YOU HAVE ANY OTHER QUESTIONS OR CONCERNS NO . VITAL SIGNS WT 234.8 LBS, HT 68 IN, BMI 35.70 INDEX, BP 145/77 MM HG, HR 73 /MIN, RR 18 /MIN, TEMP 98.2 F, OXYGEN SAT % 98%, SAFE IN ENV? (Y/N) YES, NA INITIALS SC 10:30, REVIEWED BY: ARTURO. EXAMINATION GENERAL EXAMINATION: GENERAL APPEARANCE: AWAKE,ALERT ,PLEAASANT . PSYCH AFFECT NORMAL . LUNGS: LUNG KLINE ARE CLEAR TO AUSCULTATION BILATERALLY. GOOD MOVEMENT OF AIR . HEART: S1, S2 IN A REGULAR RATE AND RHYTHM. NO SIGNIFICANT MURMURS, RUBS OR GALLOPS NOTED . MUSCULOSKELETAL:SLE + AT 45 DEGREES LEFT. LUMBAR SACRAL SPINE PALPATION: + FOR PAIN OVER L/S SPINE. + FOR PAIN OVER L/S PARASPINALS. NEUROLOGIC EXAM: NORMAL SENSATION LIGHT TOUCH BILAT. LOWER EXTREMITIES. DIAGNOSTIC TESTS REVIEWED MRI L/S SPINE -2017. ASSESSMENTS POST LAMINECTOMY SYNDROME - M96.1 (PRIMARY) TREATMENT OTHERS NOTES: CAUDAL EPIDURAL . PREVENTIVE MEDICINE PAIN CLINIC TEACHING: PROCEDURE TEACHING REVIEWED CAUDAL EPIDURAL PROCEDURE INFORMATION WITH PATIENT. ALSO REVIEWED PRE-PROCEDURE INSTRUCTIONS. PATIENT VERBALIZED AN UNDERSTANDING. JANAE MARTINEZ 07/06/2018 1:12:11 PM > . PROCEDURE CODES FA211 ESTABILISHED PATIENT [facility] CHARGE DISPOSITION & COMMUNICATION FOLLOW UP POST (REASON: CAUDAL EPIDURAL) ELECTRONICALLY SIGNED BY HARDIK COLUNGA ON 07/20/2018 AT 03:43 PM EDT DISCLAIMER : THIS IS A VISIT SUMMARY EXTRACTED FROM THE [email or web address] CHART. IT IS NOT A COPY OF THE [email or web address] PROGRESS NOTE. ENE
== END ==
LOC: M PAIN 10:00
PROVIDERS: ATTEND Nurse Practitioner Family
DX: M96.1 Postlaminectomy syndrome, not elsewhere classified (principal); I10 Essential (primary) hypertension; G47.30 Sleep apnea, unspecified; Z86.59 Personal history of other mental and behavioral disorders; M19.90 Unspecified osteoarthritis, unspecified site; Z88.0 Allergy status to penicillin; Z79.899 Other long term (current) drug therapy

== ENCOUNTER 2018-08-21 08:56 | Observation (INO) | payer MEDICARE ==
[~2018-08-21] VITALS: Ht 175.3 cm; Wt 99.5 kg
[~2018-08-21 08:56] MED LIST changes: -ESOM1CAP5; +ESOM1CAP5 PO
[2018-08-21] MEDS ORDERED: ASPIRIN 81 MG ENTERIC TAB PO SCH (09:00)
[2018-08-21 09:44] LABS: BASO # 0.1 10^3/uL (0.0-0.2); BASO % 0.5 % (0.0-1.0); EOS # 0.1 10^3/uL (0.0-0.50); EOS % 1.1 % (0.0-3.0); HEMATOCRIT 47.8 % (42.0-52.0); LYMPH # 1.5 10^3/uL (1.5-4.5); LYMPH % 15.9 % (24.0-44.0); MEAN CORPUSCULAR HEMOGLOBIN 27.4 pg (27.0-33.0); MEAN CORPUSCULAR HGB CONC 31.4 g/dl (32.0-36.5); MEAN CORPUSCULAR VOLUME 87.4 fl (80.0-96.0); MONO # 0.9 10^3/uL (0.0-0.8); MONO % 10.1 % (0.0-5.0); NEUTROPHILS # 6.6 10^3/uL (1.8-7.7); NEUTROPHILS % 72.1 % (36.0-66.0); PLATELET COUNT, AUTOMATED 347 10^3/uL (150-450); RED BLOOD COUNT 5.47 10^6/uL (4.30-6.10); WHITE BLOOD COUNT 9.2 10^3/uL (4.0-10.0)
[2018-08-21 09:55] LABS: INR 1.05; PROTHROMBIN TIME 13.8 SECONDS (12.1-14.4)
[2018-08-21 10:18] LABS: ALBUMIN 4.2 GM/DL (3.2-5.2); ALT/SGPT 35 U/L (12-78); BILIRUBIN,DIRECT 0.1 MG/DL (0.0-0.2); BILIRUBIN,TOTAL 0.7 MG/DL (0.2-1.0); BLOOD UREA NITROGEN 15 MG/DL (7-18); CALCIUM LEVEL 9.5 MG/DL (8.5-10.1); CARBON DIOXIDE LEVEL 30 MEQ/L (21-32); CHLORIDE LEVEL 103 MEQ/L (98-107); CK-MB VALUE MASS < 1.0 NG/ML (<3.6); CPK CREATINE PHOSPHOKINASE 61 U/L (39-308); CREATININE FOR GFR 1.15 MG/DL (0.70-1.30); GLOMERULAR FILTRATION RATE > 60.0 (>56); GLUCOSE, FASTING 107 MG/DL (70-100); MB/CK RELATIVE INDEX 1.64 (< OR =4); NT-PRO BNP < 5 PG/ML (<125); POTASSIUM SERUM 4.4 MEQ/L (3.5-5.1); SODIUM LEVEL 139 MEQ/L (136-145); THYROID STIMULATING HORMONE 0.491 uIU/ML (0.358-3.740); TOTAL PROTEIN 7.5 GM/DL (6.4-8.2); TROPONIN I < 0.02 NG/ML (< 0.10)
--- NOTE | 2018-08-21 10:48 | REP ---
HISTORY: Left-sided weakness. COMPARISON: The only prior for comparison is 03/04/2017, however, patient states he has had a more recent prior at an outside institution. That examination should be obtained for comparison. TECHNIQUE: 4.5 mm contiguous transaxial sections were obtained from the skull base to the cerebral convexities with thin cuts through the posterior fossa without the administration of intravenous contrast. FINDINGS: The ventricles and sulci are consistent with the patient's age. There are no extra-axial fluid collections. There is no mass effect. The deep cerebral white matter is consistent with the patient's age. The orbital and petrous structures , cerebellopontine angles, and posterior fossa are unremarkable. The sella turcica, cavernous, and paracavernous structures are essentially unremarkable. The visualized portions of the paranasal sinuses and mastoid air cells are clear. Images of the skull base show no gross abnormality. IMPRESSION: Essentially unremarkable CT examination of the brain. Minimal age-related changes, status quo. Electronically Signed by Bryant Reynolds DO 08/21/2018 10:50 A
--- NOTE | 2018-08-21 10:49 | REP ---
HISTORY: Dyspnea. FINDINGS: The superior mediastinal structures are midline. The cardiac silhouette is unremarkable in size, shape and position. The diaphragmatic surfaces of the lungs are regular and the costophrenic angles are clear. The pulmonary seay are clear. The imaged osseous structures are intact. IMPRESSION: There is no acute cardiopulmonary disease. Electronically Signed by Bryant Reynolds DO 08/21/2018 10:59 A
[2018-08-21] MEDS ORDERED: ASPIRIN 325 MG TAB PO ONE (11:00)
[2018-08-21] MEDS ORDERED: D3 S20002 PO (11:03)
[2018-08-21] MEDS ORDERED: PERCOCET 5MG/325MG TAB PO ONE (11:15)
--- NOTE | 2018-08-21 12:14 | HPEPDOC ---
[facility] Medical History & Physical History and Physical DATE OF ADMISSION 08/21/2018 PCP resident clinic CHIEF COMPLAINT: Neck pain HISTORY OF PRESENT ILLNESS: Patient is a 52-year-old man with a history of chronic lumbar back pain for which he normally follows with the pain clinic for post laminectomy syndrome. He tells me also has a history of neck pain and receives injections at the pain clinic for that as well. He tells me that one week ago he was working on his camper on climbing a ladder and shortly thereafter he had worsening of his chronic low back pain which radiated down into his left leg as it often does. He tells me he has chronic paresthesias in the left leg and more so but it is in both legs. He states that for the next week evening crawling on the floor he is in so much pain in that earlier this morning began to have significant pain in his neck as well. He is unsure if it is secondary to crawling on the floor. He tells me that that is why he called EMS and was brought to the emergency room while en route he noticed some numbness in his left arm.On review of systems she also informs me that he is followed in the left leg is been weaker since climbing on the latter one week ago. Capacity also mentions that he has some shortness of breath and that when he takes a deep breath it hurts his neck and that his hemoglobin may be low and that is 1 reason why he presented to the emergency room as well he denies nausea vomiting diarrhea or change in bladder or bowel habits he denies fevers or chills or sick contacts.. Otherwise patient denies weight loss, hair loss, headache, visual changes, cough, abdominal pain, muscle aches, worsening ar thritis, change in mood PAST MEDICAL HISTORY: 1. Postlaminectomy syndrome chronic neck and back pain. 2. hypertension. 3. Humphrey's esophagus 4. Obstructive sleep apnea on CPAP 5. Osteoarthritis 6. Major depressive disorder and anxiety 7. Irritable bowel syndrome. HOME MEDICATIONS: Please see below. ALLERGIES: Please see below PAST SURGICAL HISTORY: 1. Tonsillectomy. 2. Bilateral carpal tunnel release. 3. EGD colonoscopy 4. Laminectomy of the lumbar spine 5. Left elbow cubital tunnel translation. SOCIAL HISTORY: Lives with: , Tobacco use: Never user. ETOH: And denies last drink was greater than 1 year ago, Illicit drug use: Denies, Tattoos done unprofessionally: Denies and denies. IV drug use CODE STATUS: Full code FAMILY HISTORY:Reviewed and noncontributory REVIEW OF SYSTEMS: 10 systems reviewed and negative other than HPI PHYSICAL EXAMINATION: VITAL SIGNS: Temperature 97.8, pulse to 105, respiratory rate and 19, blood pressure 180/95, pulse oximetry 98% % on room air. GENERAL: Pleasant obese man sitting up in bed awake alert oriented speaking in complete sentences no acute distress HEENT: Moist mucous membranes no elevation and CVP CARDIOVASCULAR: S1 S2 regular no additional heart sounds appreciated. RESPIRATORY: Clear to auscultation bilaterally. ABDOMINAL: Bowel sounds present abdomen soft and nontender, obese EXTREMITIES: No clubbing cyanosis or edema NEUROLOGICAL: Spontaneously moves all 4 extremities cranial 2 through 12 grossly intact no gross focal deficits appreciated, I do not appreciate any weakness on the left upper lower extremity PSYCHOLOGICAL: Appropriate LABORATORY DATA: See below. MICROBIOLOGY: Please see below. IMAGING: CT head:Essentially unremarkable CT examination of the brain. Minimal age-related changes, status quo. Chest x-ray:There is no acute cardiopulmonary disease ASSESSMENT & PLAN: This is a 52-year-old man with acute on chronic neck pain associated with some left upper extremity weakness. PROBLEMS: 1. Acute on chronic pain: Etiology is not immediately clear his chronic neck pain however his neck pain is worse today as is his lumbar pain he does have some subjective weakness in the left upper extremity as well as numbness he describes. He also describes a difficulty with gait and weakness on the left lower extremity. My suspicion for CVA is quite low given his presentation however I spoke with Dr. Combs in Dr. Ali will check an MRI of the brain, I will also check MRI of the cervical thoracic and lumbar spine. 11 patient work with physical therapy occupational therapy department with pain control she is pain unable to be controlled could consider inpatient pain management consult as he follows with them in the clinic. I will provide him with neuro checks baby aspirin and check a lipid panel in the morning. 2. Hypertension: Uncontrolled at this time I'll provide him with his home Norvasc and lisinopril hydrochlorothiazide, uncontrolled possible secondary to sleep apnea monitor while hospitalized. Also possibly secondary to his acute pain 3. Obstructive sleep apnea: Continue with CPAP I encouraged him to use a walker here 4. In mood disorder: Denies any symptoms not on any medication at this time 5. Vitamin D deficiency: Continue supplementation 6. Irritable bowel syndrome: Denies any changes in his baseline symptoms at this time DVT PROPHYLAXIS: Jacquelinenox DISPOSITION: And admitted to medical surgical floor observation status Vital Signs Vital Signs Date Time Temp Pulse Resp B/P (MAP) Pulse Ox O2 Delivery O2 Flow Rate FiO2 08/21/18 11:10 18 08/21/18 09:56 97.8 105 185/95 (125) 98 Room Air Laboratory Data Labs 24H Laboratory Tests 2 08/21/18 09:36: Immature Granulocyte % (Auto) 0.3, White Blood Count 9.2, Red Blood Count 5.47, Hemoglobin 15.0, Hematocrit 47.8, Mean Corpuscular Volume 87.4, Mean Corpuscular Hemoglobin 27.4, Mean Corpuscular Hemoglobin Concent 31.4L, Red Cell Distribution Width 13.9, Platelet Count 347, Neutrophils (%) (Auto) 72.1H, Lymphocytes (%) (Auto) 15.9L, Monocytes (%) (Auto) 10.1H, Eosinophils (%) (Auto) 1.1, Basophils (%) (Auto) 0.5, Neutrophils # (Auto) 6.6, Lymphocytes # (Auto) 1.5, Monocytes # (Auto) 0.9H, Eosinophils # (Auto) 0.1, Basophils # (Auto) 0.1, Nucleated Red Blood Cells % (auto) 0.0, Prothrombin Time 13.8, Prothromb Time International Ratio 1.05, Anion Gap 6L, Glomerular Filtration Rate > 60.0, Calcium Level 9.5, Aspartate Amino Transf (AST/SGOT) 22, Alanine Aminotransferase (ALT/SGPT) 35, Alkaline Phosphatase 85, Total Bilirubin 0.7, Direct Bilirubin 0.1, Total Creatine Kinase 61, Creatine Kinase MB < 1.0, Creatine Kinase MB Relative Index 1.64, Troponin I < 0.02, IA-Cwd-L-Type Natri uretic Peptide < 5, Total Protein 7.5, Albumin 4.2, Albumin/Globulin Ratio 1.27, Thyroid Stimulating Hormone (TSH) 0.491 CBC/BMP Laboratory Tests 08/21/18 09:36 Red Blood Count 5.47, Mean Corpuscular Volume 87.4, Mean Corpuscular Hemoglobin 27.4, Mean Corpuscular Hemoglobin Concent 31.4 L, Red Cell Distribution Width 13.9, Neutrophils (%) (Auto) 72.1 H, Lymphocytes (%) (Auto) 15.9 L, Monocytes (%) (Auto) 10.1 H, Eosinophils (%) (Auto) 1.1, Basophils (%) (Auto) 0.5, Neutrophils # (Auto) 6.6, Lymphocytes # (Auto) 1.5, Monocytes # (Auto) 0.9 H, Eosinophils # (Auto) 0.1, Basophils # (Auto) 0.1 Home Medications Scheduled Amlodipine Besylate (Amlodipine Besylate) 10 Mg Tab, 10 MG PO DAILY Cholecalciferol (Vitamin D3) (Vitamin D3) 2,000 Unit Capsule, 2,000 UNIT PO DAILY Cyclosporine (Restasis) 0.05 % Emu, 1 DROP OU BID Esomeprazole Magnesium (Esomeprazole Magnesium) 40 Mg Cap, 40 MG PO DAILY Ferrous Sulfate (Ferrous Sulfate) 325 Mg Tab, 325 MG PO DAILY Lisinopril/Hydrochlorothiazide (Lisinopril-Hctz 20-25 mg Tab) 1 Tab Tab, 1 TAB PO DAILY Testosterone Cypionate (Testosterone Cypionate) 200 Mg/Ml Inj, 0.6 ML IM ASDIRECTED EVERY 10 DAYS Scheduled PRN Oxycodone HCl/Acetaminophen (Percocet 10-325 mg Tablet) 1 Tab Tab, 1 TAB PO Q6HP PRN for PAIN Allergies Coded Allergies: Penicillins (Verified Allergy, Intermediate, SWELLING, 08/21/18) metformin (Verified Adverse Reaction, Mild, NAUSEA, 08/21/18) zolpidem (Verified Adverse Reaction, Mild, SLEEP WALKS, 08/21/18) A-FIB/CHADSVASC A-FIB History Current/History of A-Fib/PAF?: No MARSHALL RUSSELL MD August 21, 2018 12:13
--- NOTE | 2018-08-21 13:59 | REP ---
HISTORY: Stroke-like symptoms. COMPARISON: None. TECHNIQUE: Sagittal T1. Axial T2, FLAIR, DWI and ADC. FINDINGS: The craniocervical junction is normal. There is no cerebellar tonsillar ectopia. The visualized portions of the spinal cord and neural canal are within normal limits. The ventricles and sulci are within normal limits for the patient's age. There are no extra-axial fluid collections. There is no shift of the midline structures. The deep cerebral white matter is within normal limits. Diffusion weighted images and ADC mapping shows no signal abnormality. The orbital and petrous structures, cerebellopontine angles, and posterior fossa are within normal limits. The sella turcica, cavernous and paracavernous structures are within normal limits. There is mucosal thickening in both maxillary antra without evidence of an air fluid level. IMPRESSION: Maxillary sinus mucosal thickening. There is a single nonspecific deep white matter signal hyperintensity in the deep white matter of the right centrum semiovale. Electronically Signed by Bryant Reynolds DO 08/21/2018 02:30 P
--- NOTE | 2018-08-21 14:05 | REP ---
HISTORY: Left upper extremity weakness. COMPARISON: 05/27/2017 The craniovertebral junction is unchanged and within normal limits. No abnormal signal has developed in the imaged portion of the spina cord. The neural canal is unchanged. Vertebral body height and alignment is unchanged. The marrow signal is again seen to be within normal limits and unchanged. Once again, there is diffuse disc bulge from degenerative disc disease at multiple levels, particularly on the left at 2-3 and diffusely at C4-5. Diffuse disc bulging is also seen at C5-6 which is causing mild left-sided neural foraminal narrowing. This is stable. There is disc bulging seen at C6-7 which is unchanged and causing mild left-sided foraminal narrowing. This too is unchanged. No acute disc herniation or central canal stenosis has developed at any level. IMPRESSION: No change from the prior exam. Chronic disc degeneration, status quo. Electronically Signed by Bryant Reynolds DO 08/21/2018 02:30 P
--- NOTE | 2018-08-21 14:10 | REP ---
HISTORY: Left upper extremity weakness. COMPARISON: 05/27/2017 There is no change from the prior exam. Note is again made of a slightly exaggerated thoracic kyphosis. There is degenerative disc disease seen at every level particularly T6-7 and T7-8 with small Schmorl's nodes and anterior disc space narrowing. This is stable. The marrow signal is again seen to be within normal limits throughout. No abnormal signal has developed in the imaged portion of the spinal cord. No disc herniation, foraminal narrowing or central canal stenosis has developed at any level. There is no mass or mass effect. IMPRESSION: No significant change from 05/07/2017. There is no acute abnormality. Electronically Signed by Bryant Reynolds DO 08/21/2018 02:30 P
--- NOTE | 2018-08-21 14:41 | REP ---
HISTORY: Left-sided weakness. COMPARISON: 10/28/2016 The prior examination showed multilevel discogenic changes. Today's examination again shows the imaged portion of the spina cord to be within normal limits. Vertebral body height and alignment is unchanged and again seen to be within normal limits. There is loss of disc hydrational signal particularly L3-4 through L5-S1, status quo. At the L1-2 level, there has been no significant change. There is no disc herniation, foraminal narrowing or central canal stenosis. At the L2-3 level, there has been no significant change. There is a mild broad-based annular bulge, status quo. This causes minimal effacement of the anterior thecal sac, status quo. No disc herniation, foraminal narrowing or bridget central canal stenosis has developed. At the L3-4 level, once again there is an asymmetric broad-based annular bulge seen in conjunction with degenerative facet joint changes bilaterally and mild thickening of the ligamentum flava. These factors are causing mild central canal stenosis, status quo with a flattening and straightening of the anterior thecal sac. There is no foraminal stenosis or acute disc extrusion. At the L4-5 level, once again there is a prominent asymmetric broad-based annular bulge seen with prominent degenerative facet joint changes bilaterally and thickening of the ligamentum flava. These factors are again seen to cause moderate central canal stenosis, status quo. There is no bridget foraminal narrowing or acute disc extrusion. At the L5-S1 level, once again there is an asymmetric broad-based annular bulge with a prominent left paracentral component. The extruded disc seen previously is no longer present. There has been previous surgery at L4-5 and L5-S1 since the last exam. IMPRESSION: No recurrent disc herniations at any level. Chronic changes as described above. Electronically Signed by Bryant Reynolds DO 08/21/2018 02:48 P
[2018-08-21 15:00] VITALS: BP 150/70
[2018-08-21] MEDS: PERCOCET 5MG/325MG TAB PO PRN ×3 (15:20→23:36)
[2018-08-21] MEDS: ENOXAPARIN 40 MG/0.4 ML SYRINGE (J1650) SC SCH (15:23)
--- NOTE | 2018-08-21 21:28 | ECGEPIP ---
Stationary ECG Study [facility] - ED Test Date: 2018-08-21 Pat Name: KIMBERLEY VALENCIA Department: Room: - Gender: M Shank Stitcher: : 1965 Requested By: JUAN Galan Order Number: [id number] Reading MD: Eda Joe Measurements Intervals [place] Rate: 87 P: 63 OR: 124 QRS: 2 QRSD: 93 T: 35 QT: 347 QTc: 418 Interpretive Statements SINUS RHYTHM NSTTW ABNORMALITY INCREASED RATE 03/04/17 Electronically Signed On 08-21-2018 21:28:44 EDT by Eda Joe
[2018-08-21 22:00] VITALS: BP 165/90
[2018-08-22] MEDS: PERCOCET 5MG/325MG TAB PO PRN ×5 (05:37→22:39)
[2018-08-22 06:00] VITALS: BP 139/90
[2018-08-22 06:10] LABS: HEMATOCRIT 46.2 % (42.0-52.0); HEMOGLOBIN 14.5 g/dl (13.5-17.5); MEAN CORPUSCULAR HEMOGLOBIN 27.4 pg (27.0-33.0); MEAN CORPUSCULAR HGB CONC 31.4 g/dl (32.0-36.5); MEAN CORPUSCULAR VOLUME 87.3 fl (80.0-96.0); PLATELET COUNT, AUTOMATED 310 10^3/uL (150-450); RED BLOOD COUNT 5.29 10^6/uL (4.30-6.10); WHITE BLOOD COUNT 8.7 10^3/uL (4.0-10.0)
[2018-08-22 06:38] LABS: BLOOD UREA NITROGEN 19 MG/DL (7-18); CARBON DIOXIDE LEVEL 27 MEQ/L (21-32); CHLORIDE LEVEL 103 MEQ/L (98-107); CHOLESTEROL LEVEL 171 MG/DL (<200); CHOLESTEROL RISK RATIO 5.896 (<5); CREATININE FOR GFR 1.06 MG/DL (0.70-1.30); GLOMERULAR FILTRATION RATE > 60.0 (>56); GLUCOSE, FASTING 113 MG/DL (70-100); HDL CHOLESTEROL 29 MG/DL (>40); LDL CHOLESTEROL 108 MG/DL (<100); NON-HDL-C 142 MG/DL; SODIUM LEVEL 136 MEQ/L (136-145); TRIGLYCERIDES LEVEL 172 MG/DL (<150)
[2018-08-22] MEDS ORDERED: ASPIRIN 81 MG ENTERIC TAB PO SCH (09:00)
[2018-08-22] MEDS: VITAMIN D 1,000 INTERNATIONAL UNITS TABLET PO SCH (09:36)
[2018-08-22] MEDS: ENOXAPARIN 40 MG/0.4 ML SYRINGE (J1650) SC SCH (09:36)
[2018-08-22] MEDS: hydroCHLOROthiazide 25 MG TAB PO SCH (09:36)
[2018-08-22] MEDS: amLODIPine 10 MG TAB PO SCH (09:37)
[2018-08-22] MEDS: PANTOPRAZOLE 20 MG TAB PO SCH (09:38)
[2018-08-22] MEDS: LISINOPRIL 20 MG TAB PO SCH (09:38)
[2018-08-22] MEDS: FERROUS SULFATE 325MG TAB PO SCH (09:38)
--- NOTE | 2018-08-22 11:17 | IPNPDOC ---
Date Seen The patient was seen on 08/22/18. Progress Note SUBJECTIVE: Patient complains of a stuffy nose and feels though he is developing a sore throat. Otherwise he still has his neck pain on the left side of his neck and is noticed that when he turns his head or moves his head he can induce nonfeeling in his left arm. otherwise patient denies chest pain shortness breath nausea vomiting fevers chills in fact her shortness of breath is resolved with pain control OBJECTIVE PHYSICAL EXAMINATION: VITAL SIGNS: Please see below. GENERAL: Pleasant obese man sitting up in bed awake alert oriented speaking in complete sentences no acute distress HEENT: Moist mucous membranes no elevation and CVP CARDIOVASCULAR: S1 S2 regular no additional heart sounds appreciated. RESPIRATORY: Clear to auscultation bilaterally. ABDOMINAL: Bowel sounds present abdomen soft and nontender EXTREMITIES: No clubbing cyanosis or edema NEUROLOGICAL: Spontaneously moves all 4 extremities cranial 2 through 12 grossly intact no gross focal deficits appreciated, no sensory deficit PSYCHOLOGICAL: Appropriate LABORATORY DATA, IMAGING STUDIES, MICROBIOLOGY: Please see below. DVT prophylaxis ordered?: Lovenox ASSESSMENT & PLAN: This is a 52-year-old man with acute on chronic neck pain associated with some left upper extremity weakness. PROBLEMS: 1. Acute on chronic pain: He has chronic neck pain and is improved with injections in the neck for the pain clinic in the past. I resected the pain clinic as well as neurology to see the patient consultation and will see him today. He normally follows with Dr. Madera spinal surgeon in [place]. MRI of the brain as well as MRI of the cervical thoracic and lumbar spinous been unrevealing for any acute changes etiology or significant cord compression. Given his significant pain we'll have him seen and evaluated by physical therapy and occupational therapy 2. Hypertension: controlled at continue with his home Norvasc and lisinopril hydrochlorothiazide. 3. Obstructive sleep apnea: Continue with CPAP I encouraged him to use while hospitalized 4. mood disorder: Denies any symptoms not on any medication at this time 5. Vitamin D deficiency: Continue supplementation 6. Irritable bowel syndrome: He is having some diarrhea today for now we'll simply monitor no evidence of any infectious etiologies 7. Shortness of breath resolved with pain control DISPOSITION: Pending neurology and pain management consult as well as PT VS, I&O, 24H, Fishbone Vital Signs/I&O Vital Signs Date Time Temp Pulse Resp B/P (MAP) Pulse Ox O2 Delivery O2 Flow Rate FiO2 08/22/18 09:38 18 08/22/18 09:38 139/90 08/22/18 09:37 70 08/22/18 06:00 97.6 96 08/21/18 14:52 Room Air I&O- Last 24 Hours up to 6 AM 08/22/18 06:00 Intake Total 960 ml Output Total 0 ml Balance 960 ml Laboratory Data 24H LABS Laboratory Tests 2 08/21/18 15:52: Troponin I < 0.02 08/22/18 05:57: Nucleated Red Blood Cells % (auto) 0.0, Anion Gap 6L, Glomerular Filtration Rate > 60.0, Calcium Level 9.0, Triglycerides Level 172H, LDL Cholesterol 108H, Total Cholesterol 171, Non-HDL Cholesterol (LDL + VLDL) 142, Total HDL Cholesterol 29L, Cholesterol/HDL Ratio 5.896H CBC/BMP Laboratory Tests 08/22/18 05:57 Red Blood Count 5.29, Mean Corpuscular Volume 87.3, Mean Corpuscular Hemoglobin 27.4, Mean Corpuscular Hemoglobin Concent 31.4 L, Red Cell Distribution Width 13.8 Microbiology Microbiology 08/22/18 Respiratory Virus Panel (PCR) ([facility]), Received Pending MARSHALL RUSSELL MD August 22, 2018 11:17
[2018-08-22 14:00] VITALS: BP 158/92
[2018-08-22 22:00] VITALS: BP 138/86
[2018-08-22] MEDS ORDERED: diphenhydrAMINE 25 MG CAP PO ONE (22:15)
--- NOTE | 2018-08-22 22:34 | CR ---
DATE OF CONSULTATION: 08/22/2018 CHIEF COMPLAINT: Left arm pain. SUBJECTIVE: A 52-year-old male patient with a history of chronic left arm pain. The patient explained that he has been suffering increasing intensity of the left arm pain in the last week. He was hospitalized. I am consulted due to this issue. He describes the pain as aching, severe, tender with a pain score that ranged from 7 to 10 over 10. He has difficulties moving his left upper extremity. Patient denies fever, chills, new changes in his urinary or bowel control. PRESENT MEDICATIONS: Include Nexium, oxycodone on an as needed (p.r.n.) basis, Restasis, testosterone. PAST MEDICAL HISTORY: Includes hypertension, sleep apnea, Humphrey's esophagus, history of depression, anxiety, osteoarthritis, irritable bowel syndrome. SURGICAL HISTORY: Includes back surgery in 2017, carpal tunnel release, tonsillectomy. FAMILY HISTORY: There is family history of high blood pressure, diabetes, Crohn's disease. ALLERGIES: The patient reports allergies to PENICILLIN. SOCIAL HISTORY: The patient lives with , does not use tobacco. Denies the use of illegal substance. Denies abuse of any medication. REVIEW OF SYSTEMS: Constitutional: Patient denies fevers, chills. Infections: Patient denies any acute infection. Musculoskeletal: The patient has the weakness over the left arm. Patient is having also weakness over the left leg with pain over the left leg. Gastrointestinal: No changes in the bowel activity. Genitourinary: No changes in the urinary activity. Hematological: Patient denies the use of any blood thinners. Neurological: Patient denies strokes. He reports some headaches, but he feels associated with the neck pain. Cardiologic: Patient denies any pacemaker or defibrillator. Respiratory system: Patient denies any chronic cough. Allergies: Patient reports allergies to PENICILLIN. Psychiatry: Patient has a history of depression. OBJECTIVE: Heart rate is 100, respiratory rate is 19, blood pressure 175/90, temperature is 97.8. The patient is alert, oriented times three, and cooperative. General: The patient is pleasant. Cardiac exam reveals there is no murmurs, no gallops. The lungs are clear to auscultation. The left arm is weaker than the right arm in extension and flexion. Handgrip over the left side reduced compared to the right side. Patient has weakness also over the left leg compared to the right leg. Patient has tenderness in the back area. With extension and lateral rotation of the neck, there is increase in pain and tingling sensation down the left arm. MRI of the cervical spine done on 08/21/2018 showing bulging disc at C5-C6, C6-C7. No changes compared with the study of May of 2017. There is an MRI of the brain done on 08/21/2018 that is showing no signs of infarcts. There is an MRI of the lumbar spine done on 08/21/2018 that is showing bulging disc at multiple levels and postlaminectomy changes. MRI of the thoracic spine was also showing some bulging disc at multiple levels. ASSESSMENT: Cervical disc disorder with radiculopathy. Cervical radiculopathy. PLAN: I discussed alternatives with Mr. Burnett. The patient is a candidate for a cervical epidural injection, so I will put the patient nothing by mouth (n.p.o.) and consider doing an epidural tomorrow. I also want to consult the spine surgical service. The patient is telling me that he has responded to epidurals in the past so he wants to pursue the epidural. Also, he is having pain in his lower back and the left leg. He is interested in doing some sort of intervention while he is in the hospital for his low back and left leg pain. It is something that we will consider. I will discuss with the admitting physician tomorrow. Patient agrees with the plan. ENE
[2018-08-23] MEDS: PERCOCET 5MG/325MG TAB PO PRN ×4 (05:47→19:46)
[2018-08-23 06:00] VITALS: BP 130/75
[2018-08-23 06:22] LABS: HEMATOCRIT 44.4 % (42.0-52.0); MEAN CORPUSCULAR HEMOGLOBIN 27.3 pg (27.0-33.0); MEAN CORPUSCULAR HGB CONC 31.5 g/dl (32.0-36.5); MEAN CORPUSCULAR VOLUME 86.5 fl (80.0-96.0); PLATELET COUNT, AUTOMATED 299 10^3/uL (150-450); RED BLOOD COUNT 5.13 10^6/uL (4.30-6.10); WHITE BLOOD COUNT 8.2 10^3/uL (4.0-10.0)
[2018-08-23 06:41] LABS: BLOOD UREA NITROGEN 17 MG/DL (7-18); CARBON DIOXIDE LEVEL 29 MEQ/L (21-32); CHLORIDE LEVEL 102 MEQ/L (98-107); CREATININE FOR GFR 0.96 MG/DL (0.70-1.30); GLOMERULAR FILTRATION RATE > 60.0 (>56); GLUCOSE, FASTING 113 MG/DL (70-100); SODIUM LEVEL 137 MEQ/L (136-145)
--- NOTE | 2018-08-23 09:34 | IPNPDOC ---
Subjective Date Seen The patient was seen on 08/23/18. Subjective Chief Complaint/HPI Still complaining of severe neck pain General: Denies: ROS Unobtainable, Chills, Night Sweats, Fatigue, Malaise, Normal Appetite, Other Symptoms Eyes: Denies: Pain, Vision change, Conjunctivae inflammation, Eyelid inflammation, Redness, Other ENT: Denies: Head Aches, Ear Pain, Dysphagia, Sinus Congestion, Post Nasal Drip, Sore Throat, Epistaxis, Other Symptoms Skin: Denies: Rash, Lesions, Jaundice, Bruising, Itching, Dry, Breakdown, Nail Changes, Other Pulmonary: Denies: Dyspnea, Cough, Pleuritic Chest Pain, Other Symptoms Cardiovascular: Denies: Chest Pain, Palpitations, Orthopnea, Paroxysmal Noc. Dyspnea, Edema, Lt Headedness, Other Symptoms Gastrointestinal: Denies: Nausea, Vomiting, Abdominal Pain, Diarrhea, Constipation, Melena, Hematochezia, Other Symptoms Genitourinary: Denies: Dysuria, Frequency, Incontinence, Retention Hematologic: Denies: Bruising, Bleeding Excessively, Petecchia, Purpura, Enlarged Lymph Nodes, Other Hematologic Endocrine: Denies: Polydipsia, Polyphagia, Polyuria, Heat Intolerance, Cold Intolerance, Other Endocrine Sx Musculoskeletal: Reports: Spasms, Other Symptoms (complaining of severe neck pain with spasm) Neurological: Denies: Weakness, Numbness, Incoordination, Change in speech, Confusion, Seizures, Other Symptoms Psych: Denies: Mood Normal, Anxiety, Depression, Memory Issues, Thoughts of Self Harm, Anger, Thoughts of Harming Other, Other Psych Objective Physical Examination General Exam: Positive: Alert, Cooperative Eye Exam: Positive: PERRLA, Conjunctiva & lids normal ENT Exam: Positive: Atraumatic, Mucous membr. moist/pink Neck Exam: Positive: Other (spasm paraspinal muscles noted) Chest Exam: Positive: Clear to auscultation, Normal air movement Heart Exam: Positive: Rate Normal, Normal S1, Normal S2 Abdomen Exam: Positive: Normal bowel sounds, Soft Male Exam: Positive: Normal Genital Exam Extremity Exam: Positive: Normal pulses Skin Exam: Positive: Nl turgor and temperature Neuro Exam: Positive: Normal Gait, Normal Speech Psych Exam: Positive: Mental status NL A-FIB/CHADSVASC A-FIB History Current/History of A-Fib/PAF?: Yes Current Oral Anticoagulant The: Yes Assessment /Plan Problems (1) Neck pain Status: Acute Response to Treatment: Stable Problem Text: 1. Acute on chronic pain: He has chronic neck pain and is improved with injections in the neck for the pain clinic in the past. I resected the pain clinic as well as neurology to see the patient consultation and will see him today. He normally follows with Dr. Madera spinal surgeon in [place]. MRI of the brain as well as MRI of the cervical thoracic and lumbar spinous been unrevealing for any acute changes etiology or significant cord compression. Giv en his significant pain we'll have him seen and evaluated by physical therapy and occupational therapy. Patient is scheduled for pain management consultation and possible steroid injection 2. Hypertension: controlled at continue with his home Norvasc and lisinopril hydrochlorothiazide. 3. Obstructive sleep apnea: Continue with CPAP I encouraged him to use while hospitalized 4. mood disorder: Denies any symptoms not on any medication at this time 5. Vitamin D deficiency: Continue supplementation 6. Irritable bowel syndrome: He is having some diarrhea today for now we'll simply monitor no evidence of any infectious etiologies 7. Shortness of breath resolved with pain control DISPOSITION: Pending neurology and pain management consult as well as PT Plan/VTE VTE Prophylaxis Ordered?: Yes VS, I&O, 24H, Fishbone Vital Signs/I&O Vital Signs Date Time Temp Pulse Resp B/P (MAP) Pulse Ox O2 Delivery O2 Flow Rate FiO2 08/23/18 06:17 16 08/23/18 06:00 96.2 71 130/75 (93) 96 08/21/18 14:52 Room Air I&O- Last 24 Hours up to 6 AM 08/23/18 06:00 Intake Total 1560 ml Output Total 0 ml Balance 1560 ml Laboratory Data 24H LABS Laboratory Tests 2 08/23/18 06:05: Nucleated Red Blood Cells % (auto) 0.0, Anion Gap 6L, Glomerular Filtration Rate > 60.0, Blood Urea Nitrogen 17, Creatinine 0.96, Sodium Level 137, Potassium Level 4.0, Chloride Level 102, Carbon Dioxide Level 29, Calcium Level 9.0 CBC/BMP Laboratory Tests 08/23/18 06:05 Red Blood Count 5.13, Mean Corpuscular Volume 86.5, Mean Corpuscular Hemoglobin 27.3, Mean Corpuscular Hemoglobin Concent 31.5 L, Red Cell Distribution Width 13.7, Calcium Level 9.0 Microbiology Microbiology 08/22/18 Respiratory Virus Panel (PCR) ([facility]) - Final, Complete OLIVIA MUHAMMAD MD August 23, 2018 09:34
[2018-08-23] MEDS: CYCLOBENZAPRINE 10 MG TAB PO SCH ×3 (10:12→19:46)
[2018-08-23] MEDS: PANTOPRAZOLE 20 MG TAB PO SCH (10:12)
[2018-08-23] MEDS: amLODIPine 10 MG TAB PO SCH (10:12)
[2018-08-23] MEDS: LISINOPRIL 20 MG TAB PO SCH (10:13)
[2018-08-23] MEDS: hydroCHLOROthiazide 25 MG TAB PO SCH (10:13)
[2018-08-23] MEDS: VITAMIN D 1,000 INTERNATIONAL UNITS TABLET PO SCH (10:13)
[2018-08-23] MEDS: FERROUS SULFATE 325MG TAB PO SCH (10:13)
[2018-08-23 14:00] VITALS: BP 138/82
--- NOTE | 2018-08-23 16:23 | CR ---
DATE OF CONSULTATION: 08/23/2018 NEUROLOGY CONSULTATION: REFERRING PROVIDER: Dr. Tabatha Mazariegos REASON FOR CONSULTATION: Neck pain with radicular pain down the left arm, low back pain with radicular pain down the left leg. Tyler Burnett is a longstanding patient of the [facility]. The patient is status post laminectomy syndrome of the low back. He has chronic neck pain. He has never had neck surgery. The patient is a 52-year-old male who was on a ladder with the neck extended and developed severe neck pain. He developed severe back pain as well. He was crawling around on the ground with his neck extended. He developed severe pain and paresthesias of the left arm to the point where he could hardly move it, and it was completely numb. The patient has positive Spurling sign to his left side, which is reproducing his exact symptoms. The patient had an MRI of the brain which was negative for any acute stroke. He had the left C5-6, C6-7 neural foraminal narrowing. He had no recurrent herniated discs. In the lumbar spine, he had a prominent left sided disc bulge at L5-S1. He has mostly L5-S1 dermatomal distribution paresthesias of the left leg. He is under the care of Dr. Jae Cedeno who will be performing a cervical epidural injection the next day. The patient has not been given a Medrol Dosepak. If the epidural injection does not help, a Medrol Dosepak can certainly be considered. The patient does not appear to have a stroke causing his weakness at this time. He denies any loss of bowel or bladder function. He has reasonable strength in his right arm and right leg, he states. PAST MEDICAL HISTORY: Post laminectomy syndrome low back. Chronic neck pain with cervical spondylosis, cervical radiculopathy. Hypertension. Humphrey's esophagitis. Obstructive sleep apnea, on continuous positive airway pressure (CPAP). Osteoarthritis. Major depressive disorder. Anxiety. Irritable bowel syndrome. ALLERGIES: No known drug allergie.s MEDICATIONS: - Norvasc 10 mg by mouth daily - vitamin D 2000 international units by mouth daily - ferrous sulfate 325 mg by mouth daily - hydrochlorothiazide 25 mg by mouth daily - lisinopril 20 mg by mouth daily - Percocet 5/325 mg by mouth daily SOCIAL HISTORY: The patient denies use of tobacco, alcohol or illicit drugs presently. FAMILY HISTORY: Noncontributory. REVIEW OF SYSTEMS: 14-point review of systems obtained and is negative except as per history of the present illness. PHYSICAL EXAMINATION: Blood pressure is 139/90, pulse rate 70, respiratory rate is 18, temperature is 97.6 degrees Fahrenheit, oxygenation 96% on room air. Current height 5 feet 9 inches, current weight is 99.5 kg. The patient is awake, alert, oriented to person, place and time. Speech language comprehension, repetition are intact. Pupils are 3 mm round, reactive to light. Extraocular movements are intact in all directions. Sensation V1, V2, V3 is intact to light touch. No facial asymmetry to activation. Palate elevates symmetrically. Tongue is midline. No weakness of sternocleidomastoids bilaterally. Hearing is subjectively equal to finger rub. The patient does have significant Spurling sign on the left and right. Right side reproduces paresthesias down the thumb and index finger, left side reproduces significant pain down the entire arm. The patient has reasonable strength in bilateral deltoid. He has weakness in the left biceps and triceps and has weakness in the left finger extensor and wrist extensor. Right side: The patient has normal strength. He has a normal strength in the lower extremities when given proper effort. Sensory is intact to light touch in all four extremities. The patient has decreased light touch in the left hand compared to the right and decreased sensation to light touch in the left great toe and lateral aspect of the foot compared to the right side. The patient has deep tendon reflexes, 2s at the triceps, absent at the right bicep, 2 at the left bicep, 2s at the patellas and reduced at the Achilles. Romberg testing deferred. The patient is in severe amount of pain. Gait deferred. ASSESSMENT: 1. Cervical spondylosis with left-sided cervical radicular pain and paresthesias. 2. Lumbosacral spondylosis with left-sided lumbar radicular pain and paresthesia. PLAN: Followup recommendations with Dr. Jae Cedeno for epidural injection. If that does not help, consider Medrol Dosepak. Consider surgical opinion under the care of Dr. Yan at the request of the patient himself for cervical surgical intervention given the loss of the right reflex at the right biceps and ongoing radicular pain and paresthesias. Case discussed with Dr. Tabatha Mazariegos.
[2018-08-23] MEDS ORDERED: LIDOCAINE 1% SDV INJ 30 ML VIAL As Ordered ONE (16:45)
[2018-08-23] MEDS ORDERED: methylPREDNISolone SUSP 40 MG/ML (DEPO-medrol) VIAL (J1030) As Ordered ONE (16:45)
[2018-08-23] MEDS ORDERED: ISOVUE-M 300 61% 15ML VIAL (Q9967) As Ordered ONE (16:46)
[2018-08-23] MEDS ORDERED: oxyCODONE 5MG TAB As Ordered ONE (16:49)
[2018-08-23] MEDS ORDERED: diazePAM 5 MG TAB As Ordered ONE (16:50)
[2018-08-23 18:30] VITALS: BP 144/90
[2018-08-23 18:33] VITALS: BP 144/90
[2018-08-23 20:02] VITALS: BP 151/90
[2018-08-23 22:00] VITALS: BP 151/90
[2018-08-24] MEDS: PERCOCET 5MG/325MG TAB PO PRN ×2 (05:18→10:08)
[2018-08-24 06:00] VITALS: BP 153/92
[2018-08-24 06:36] LABS: HEMATOCRIT 45.5 % (42.0-52.0); HEMOGLOBIN 14.4 g/dl (13.5-17.5); MEAN CORPUSCULAR HEMOGLOBIN 26.9 pg (27.0-33.0); MEAN CORPUSCULAR HGB CONC 31.6 g/dl (32.0-36.5); PLATELET COUNT, AUTOMATED 357 10^3/uL (150-450); RED BLOOD COUNT 5.35 10^6/uL (4.30-6.10); WHITE BLOOD COUNT 11.2 10^3/uL (4.0-10.0)
[2018-08-24 07:02] LABS: BLOOD UREA NITROGEN 15 MG/DL (7-18); CALCIUM LEVEL 8.8 MG/DL (8.5-10.1); CARBON DIOXIDE LEVEL 30 MEQ/L (21-32); CHLORIDE LEVEL 102 MEQ/L (98-107); CREATININE FOR GFR 0.97 MG/DL (0.70-1.30); GLOMERULAR FILTRATION RATE > 60.0 (>56); GLUCOSE, FASTING 121 MG/DL (70-100); POTASSIUM SERUM 4.2 MEQ/L (3.5-5.1); SODIUM LEVEL 136 MEQ/L (136-145)
[2018-08-24] MEDS: LISINOPRIL 20 MG TAB PO SCH (08:07)
[2018-08-24 08:08] VITALS: BP 153/92
[2018-08-24] MEDS: CYCLOBENZAPRINE 10 MG TAB PO SCH (08:08)
[2018-08-24] MEDS: amLODIPine 10 MG TAB PO SCH (08:08)
[2018-08-24] MEDS: hydroCHLOROthiazide 25 MG TAB PO SCH (08:08)
[2018-08-24] MEDS: VITAMIN D 1,000 INTERNATIONAL UNITS TABLET PO SCH (08:08)
[2018-08-24] MEDS: FERROUS SULFATE 325MG TAB PO SCH (08:08)
[2018-08-24] MEDS: PANTOPRAZOLE 20 MG TAB PO SCH (08:08)
--- NOTE | 2018-08-24 10:46 | DS.PDOC ---
Discharge Summary General Date of Admission August 21, 2018 at 11:38 Date of Discharge 08/24/18 Attending Physician: OLIVIA MUHAMMAD MD Discharge Summary PROCEDURES PERFORMED DURING STAY: None. ADMITTING DIAGNOSES: 1. Neck pain. DISCHARGE DIAGNOSES: 1. Neck pain. COMPLICATIONS/CHIEF COMPLAINT: Neck Pain. Patient is a 52-year-old man with a history of chronic lumbar back pain for which he normally follows with the pain clinic for post laminectomy syndrome. He tells me also has a history of neck pain and receives injections at the pain clinic for that as well. He tells me that one week ago he was working on his camper on climbing a ladder and shortly thereafter he had worsening of his chronic low back pain which radiated down into his left leg as it often does. He tells me he has chronic paresthesias in the left leg and more so but it is in both legs. He states that for the next week evening crawling on the floor he is in so much pain in that earlier this morning began to have significant pain in his neck as well. He is unsure if it is secondary to crawling on the floor. He tells me that that is why he called EMS and was brought to the emergency room while en route he noticed some numbness in his left arm.On review of systems she also informs me that he is followed in the left leg is been weaker since climbing on the latter one week ago. Capacity also mentions that he has some shortness of breath and that when he takes a deep breath it hurts his neck and t hat his hemoglobin may be low and that is 1 reason why he presented to the emergency room as well he denies nausea vomiting diarrhea or change in bladder or bowel habits he denies fevers or chills or sick contacts.. Otherwise patient denies weight loss, hair loss, headache, visual changes, cough, abdominal pain, muscle aches, worsening arthritis, change in mood]. HOSPITAL COURSE: Patient identity medical floor and was started on pain management. Patient was also seen by Dr. Cedeno. Cervical injection was given by Dr. Cedeno yesterday. Patient feels a lot better. He also has been started on Flexeril, which he tolerated very well. As per Dr. Cedeno. He is a scheduled for epidural tomorrow as an outpatient. Patient will be discharged home today and follow with Dr. Cedeno as an outpatient. Patient admitted has been advised to keep nothing by mouth after 9 AM police called by Dr. Sandoval office for the procedure. DISCHARGE MEDICATIONS: Please see below. ALLERGIES: Please see below. PHYSICAL EXAMINATION ON DISCHARGE: VITAL SIGNS: Please see below. GENERAL: The normal limit HEENT: PERRLA NECK: Restriction of movements laterally on both sides, but otherwise no tenderness, supple CARDIOVASCULAR EXAMINATION: S1, S2, regular, RESPIRATORY EXAMINATION: Clear to A&P ABDOMINAL EXAMINATION: Benign EXTREMITIES: No clubbing, cyanosis or edema SKIN: Normal NEUROLOGICAL EXAMINATION: Normal PSYCHIATRIC EXAMINATION: Normal LABORATORY DATA: Please see below. IMAGING: As per EMR PROGNOSIS: Good ACTIVITY: As tolerated. DIET: As tolerated DISCHARGE PLAN: Follow with Dr. Cedeno as an outpatient DISPOSITION: . Home DISCHARGE INSTRUCTIONS: 1. As above. ITEMS TO FOLLOWUP ON ON OUTPATIENT: 1. As above. DISCHARGE CONDITION: Stable. TIME SPENT ON DISCHARGE: Greater than 40 minutes. Vital Signs/I&Os Vital Signs Date Time Temp Pulse Resp B/P (MAP) Pulse Ox O2 Delivery O2 Flow Rate FiO2 08/24/18 10:08 16 08/24/18 08:08 77 153/92 08/24/18 06:00 96.4 97 08/21/18 14:52 Room Air I&O- Last 24 Hours up to 6 AM 08/24/18 06:00 Intake Total 1050 ml Balance 1050 ml Laboratory Data Labs 24H Laboratory Tests 2 08/24/18 06:12: Nucleated Red Blood Cells % (auto) 0.0, Anion Gap 4L, Glomerular Filtration Rate > 60.0, Blood Urea Nitrogen 15, Creatinine 0.97, Sodium Level 136, Potassium Level 4.2, Chloride Level 102, Carbon Dioxide Level 30, Calcium Level 8.8 CBC/BMP Laboratory Tests 08/24/18 06:12 Red Blood Count 5.35, Mean Corpuscular Volume 85.0, Mean Corpuscular Hemoglobin 26.9 L, Mean Corpuscular Hemoglobin Concent 31.6 L, Red Cell Distribution Width 13.6, Calcium Level 8.8 Microbiology Microbiology 08/22/18 Respiratory Virus Panel (PCR) ([facility]) - Final, Complete Discharge Medications Scheduled Amlodipine Besylate (Amlodipine Besylate) 10 Mg Tab, 10 MG PO DAILY, (Reported) Cholecalciferol (Vitamin D3) (Vitamin D3) 2,000 Unit Capsule, 2,000 UNIT PO DAILY, (Reported) Cyclosporine (Restasis) 0.05 % Emu, 1 DROP OU BID, (Reported) Esomeprazole Magnesium (Esomeprazole Magnesium) 40 Mg Cap, 40 MG PO DAILY, (Reported) Ferrous Sulfate (Ferrous Sulfate) 325 Mg Tab, 325 MG PO DAILY, (Reported) Lisinopril/Hydrochlorothiazide (Lisinopril-Hctz 20-25 mg Tab) 1 Tab Tab, 1 TAB PO DAILY, (Reported) Testosterone Cypionate (Testosterone Cypionate) 200 Mg/Ml Inj, 0.6 ML IM ASDIREC GINA, (Reported) EVERY 10 DAYS Scheduled PRN Oxycodone HCl/Acetaminophen (Percocet 10-325 mg Tablet) 1 Tab Tab, 1 TAB PO Q6HP PRN for PAIN, (Reported) Allergies Coded Allergies: Penicillins (Verified Allergy, Intermediate, SWELLING, 08/21/18) metformin (Verified Adverse Reaction, Mild, NAUSEA, 08/21/18) zolpidem (Verified Adverse Reaction, Mild, SLEEP WALKS, 08/21/18) OLIVIA MUAHMMAD MD August 24, 2018 10:46
--- NOTE | 2018-08-25 10:59 | REP ---
Fluoro guided spinal injection Films were reviewed with Dr. buchanan. The portable C-arm was provided in the OR for Dr. Wilian Byrd for fluoroscopic guidance. Three intraoperative last image hold fluoro spot films were obtained for needle placement verification for cervical epidural injection. The films are on the PACS system and are available for review. 16 seconds of fluoroscopy time was utilized for this procedure. Reviewed by YOSSI Yip 08/24/2018 03:06 P Electronically Signed by Shailesh Buchanan MD 08/25/2018 10:47 A
== END 2018-08-24 13:25 | disposition home or self-care (01) ==
LOC: M ED 08:56 → M ED INP 11:38 → M MS5PR 15:06
PROVIDERS: ADMIT Internal Medicine; ATTEND Internal Medicine
DX: M50.10 Cervical disc disorder with radiculopathy, unspecified cervical region (principal); M96.1 Postlaminectomy syndrome, not elsewhere classified; I10 Essential (primary) hypertension; K22.70 Barrett's esophagus without dysplasia; G47.33 Obstructive sleep apnea (adult) (pediatric); F32.9 Major depressive disorder, single episode, unspecified; F41.9 Anxiety disorder, unspecified; K58.8 Other irritable bowel syndrome; Z79.899 Other long term (current) drug therapy; R06.02 Shortness of breath; E55.9 Vitamin D deficiency, unspecified; Z88.0 Allergy status to penicillin; Z88.8 Allergy status to other drugs, medicaments and biological substances
CPT/HCPCS: 36415; 62321; 70450; 70551; 71046; 72141; 72146; 72148; 77003; 80048; 80061; 80076; 82550; 82553; 83880; 84443; 84484; 85025; 85027; 85610; 87486; 87581; 87633; 87798; 93005; 93041; 94760; 96372; 97116; 97161; 97165; 99285; G0378; J1030; J1650; Q9967

== ENCOUNTER → 2018-08-23 | Outpatient (CLI) | payer MEDICARE ==
[~2018-08-23] MED LIST changes: +D3 S20002 PO
--- NOTE | 2018-09-02 00:52 | ECWPNPC ---
PATIENT NAME: KIMBERLEY VALENCIA : 1965 GENDER: MALE VISIT DATE: 08/23/2018 DISCHARGE DATE: 08/23/18 0756 VISIT LOCKED DATE TIME: PHYSICIAN: OMA POWELL MD PHYSICIAN PAGER NO: TEXT TO [phone] RESOURCE: OMA POWELL MD REASON FOR APPOINTMENT 1. INPT, CERVICAL EPIDURAL HISTORY OF PRESENT ILLNESS HISTORY OF PRESENT ILLNESS: PAIN THE PATIENT DESCRIBES THE PAIN... FALL RISK SCREENING: SCREENING :NO FALLS REPORTED IN THE LAST YEAR PAST MEDICAL HISTORY HYPERTENSION BARRETS ESOPHAGUS SLEEP APNEA [place] WITH CPAP (PULM ASSOC) BACK PAIN - ([facility]) HYPOTESTOSTERONEMIA (C. FISH) MAJOR DEPRESSION, SINGLE EPISODE (MANISH) ANXIETY OA (MULTIPLE LOCATIONS) ASCVD 10-YEAR RISK IS 5.3% IN 08/2016 OSCAR'S ESOPHAGUS: GASTRO IN [place] IBS ALLERGIES PENICILLIN (FOR ALLERGIES USE ONLY): FEET SWELLS - ALLERGY SURGICAL HISTORY TONSILLECTOMY CHILD BILATERAL CARPAL TUNNEL (FISH) 2009 EGD/COLONOSCOPY (KATHRYN IN [place]) 11/2011 LEFT ELBOW CUBITAL TUNNEL TRANSLATION (FISH) 2012 RIGHT CARPAL TUNNEL 07/05/13 COLO/EGD- KATHRYN-SYR- MILD ESOPHAGITIS 05/20 BACK SURGERY- DR SALGADO SOS 01/2017 FAMILY HISTORY FATHER: 70 YRS, PROSTATE CA AT AGE 65, DIAGNOSED WITH HYPERTENSION MOTHER: ALIVE 76 YRS, DIABETES SIBLINGS: BROTHER CROHN'S SISTER THYROID DISEASE DAUGHTER(S): ALIVE, DAUGHTER MVA 1DAUGHTER(S) . SOCIAL HISTORY GENERAL: TOBACCO USE ARE YOU A:NONSMOKER HIV / HEP-C SCREENING HIV TEST OFFERED TO PATIENT:YES DATE OFFERED:01/28/2017 TEST ACCEPTED:NO REASON:PATIENT DECLINED HEP-C TEST OFFERED TO PATIENT:NO OTHERS AT HOME: SPOUSE. EDUCATION LEVEL OF EDUCATION:HIGH SCHOOL DIET: REGULAR. LANGUAGE LANGUAGES SPOKEN:JAPANESE DOMESTIC VIOLENCE DO YOU FEEL SAFE IN YOUR ENVIRONMENT?YES BMI CARE GOAL FOLLOW-UP ABOVE NORMAL BMI FOLLOW-UPLIFESTYLE EDUCATION REGARDING DIET RECREATIONAL DRUG USE DRUG USE?NO PATIENT DENIES ABUSE OR MISSUSED OF ANY MEDICATION. PATIENT DENIES USE OF ANY ILLEGAL SUBSTANCE INCLUDING MARIJUANA OR COCAINE. EXERCISE: NO REGULAR EXERCISE. LEARNING BARRIERS / SPECIAL NEEDS CHANGE FROM LAST VISIT?NO BARRIERS TO LEARNING?NO HEARING IMPAIRED?YES :HEARING AIDES C/O INCREASED HEARING LOSS VISION IMPAIRED?NO COGNITIVELY IMPAIRED?NO READINESS TO LEARN?YES LEARNING PREFERENCES?NO LEARNING CAPABILITIES PRESENT?YES EMOTIONAL BARRIERS?NO SPECIAL DEVICES?NO JBOSS ARCHITECT NEEDED?NO PAIN CLINIC PFS, CLERGY, PUBLIC HEALTH REFERRALS PFS REFERRAL NEEDED?NO CLERGY REFERRAL NEEDED?NO PUBLIC HEALTH REFERRAL NEEDED?NO WAS THE PROVIDER NOTIFIED OF ANY PERTINENT INFO?NO HAS THE PATIENT BEEN EDUCATED REGARDING HIS/HER PLAN OF CARE?YES HAS THE PATIENT BEEN EDUCATED REGARDING PAIN, THE RISK FOR PAIN, THE IMPORTANCE OF EFFECTIVE PAIN MANAGEMENT, AND THE PAIN ASSESSMENT PROCESS?YES LATEX QUESTIONNAIRE LATEX ALLERGY : HAVE YOU EVER DEVELOPED ANY TYPE OF REACTION AFTER HANDLING LATEX PRODUCTS SUCH RUBBER GLOVES, CONDOMS, DIAPHRAGMS, BALLOONS, SOCKS, OR UNDERWEAR?NO LATEX ALLERGY : HAVE YOU EVER DEVELOPED ANY TYPE OF REACTION DURING OR AFTER DENTAL APPOINTMENT, VAGINAL/RECTAL EXAMINATION, SURGICAL PROCEDURE, OR ANY OTHER EXPOSURE?NO LATEX RISK : HAVE YOU EVER HAD ANY DIFFICULTY BREATHING OR HIVES AFTER EATING OR HANDLING ANY FRUITS, OR VEGETABLES; SUCH KIWI, BANANAS, STONE FRUITS, OR CHESTNUTSNO LATEX RISK : DO YOU HAVE A PREVIOUS PERSONAL HISTORY OF MORE THAN NINE SURGERIES, SPINA BIFIDA, OR REPEATED CATHERTIZATIONS? NO LATEX RISK : ARE YOU FREQUENTLY EXPOSED TO LATEX PRODUCTS IN YOUR OCCUPATION?NO DATE ASKED : 07/06/2018 CAFFEINE CAFFEINE USE?YES 1 COFFEE DAILY ADVANCE DIRECTIVE ADVANCE DIRECTIVE DISCUSSED WITH PATIENT:YES HCP-LAUREL VALENCIA EPISCOPALIAN [id number] ORTHODOX MARITAL STATUS: . ALCOHOL SCREENING DID YOU HAVE A DRINK CONTAINING ALCOHOL IN THE PAST YEAR?NO POINTS0 INTERPRETATIONNEGATIVE OCCUPATION: DISABLED. SEXUAL HX HAD SEX IN THE LAST 12 MONTHS (VAGINAL, ORAL, OR ANAL)?YES WITHWOMEN ONLY USE PROTECTION?NO HAVE YOU EVER HAD AN STD?NO 08/25/17 0945 REVIEWED WITH PT. ADREVIEWED WITH PATIENT 05/03/18 1540 JSREVIEWED WITH PT 05/19/18 1120 BVREVIEWED WITH PT 06/03/18 1316 BVREVIEWED WITH PATIENT 07/06/18 1039 JS. HOSPITALIZATION/MAJOR DIAGNOSTIC PROCEDURE CHEST PAIN/DYSPNEA, R/O [place] ([place]) 10/15 BACK SURGERY 01/2017 NECK AND LEFT SIDED PAIN AND WEAKNESS 08/2018 REVIEW OF SYSTEMS REVIEWED BY: PROVIDER: . CONSTITUTIONAL: ANY CHANGE IN YOUR MEDICAL CONDITION? NO . CHILLS NO . FEVER NO . INFECTION: DO YOU HAVE NEW INFECTIONS? NO . DO YOU HAVE HISTORY OF MRSA? NO . MUSCULOSKELETAL: ANY NEW PATTERNS OF PAIN OR NUMBNESS? YES, LOST TOTAL USE OF LEFT HAND X 1 DAY, LEFT NECK PAIN . GASTROENTEROLOGY: ANY NEW CHANGE IN BOWEL CONTROL? NO . GENITOURINARY: ANY NEW CHANGE IN BLADDER CONTROL? NO . IS THERE A CHANCE YOU COULD BE ? NO . HEMATOLOGY/LYMPH: DO YOU TAKE ANY BLOOD THINNERS? (FOR EXAMPLE- COUMADIN, PLAVIX, AGGRENOX, PLATEL, PRADAXA, OR XARELTO) NO . WHEN WAS YOUR LAST DOSE? DATE: TIME: . NEUROLOGY: HAVE YOU FALLEN IN THE PAST 12 MONTHS? NO . ANY NEW EXTREMITY NUMBNESS OR WEAKNESS? YES, LEFT ARM AND HAND WEAKNESS . CARDIOLOGY: DO YOU HAVE A PACEMAKER OR DEFIBRILLATOR? NO . RESPIRATORY: HAVE YOU BEEN SICK IN THE PAST WEEK? NO . FEVER NO . FLU LIKE SYMPTOMS? NO . COUGH NO . INTEGUMENTARY: DO YOU HAVE ANY RASHES OR OPEN SORES? NO . ALLERGIC/IMMUNO: ARE YOU ALLERGIC TO IV DYE? NO . ANY NEW ALLERGIES? NO . PSYCHIATRIC: DO YOU HAVE THOUGHTS OF HURTING YOURSELF OR SOMEONE ELSE? NO . ARE YOU ABUSED, NEGLECTED, OR IN AN UNSAFE ENVIRONMENT? NO . ENDOCRINOLOGY: ARE YOU DIABETIC? NO . OTHER: DO YOU NEED ANY PRESCRIPTIONS? NO . IF YES, PLEASE LIST: ____ . ANY NEW PROBLEMS WITH YOUR MEDICATIONS? NO . WHEN DID YOU LAST EAT? 08/23/18 0900 . WHEN DID YOU LAST DRINK? 08/23/18 0900 . WHAT DID YOU LAST DRINK? WATER . NAME OF PERSON DRIVING YOU HOME? INPT 5 CALDERÓN . DO YOU HAVE ANY OTHER QUESTIONS OR CONCERNS NO . VITAL SIGNS WT 219 LBS, HT 68 IN, BMI 33.30 INDEX, BP 141/89 MM HG, HR 68 /MIN, RR 18 /MIN, TEMP 99.6 F, OXYGEN SAT % 98%, NA INITIALS SC 16:19, REVIEWED BY: EM. ASSESSMENTS CERVICAL DISC DISORDER WITH RADICULOPATHY OF CERVICAL REGION - M50.10 (PRIMARY) PROCEDURES PN CERVICAL EPIDURAL PRE PROCEDURE DIAGNOSIS CERVICAL DISC DISORDER WITH RADICULOPATHY POST PROCEDURE DIAGNOSIS CERVICAL DISC DISORDER WITH RADICULOPATHY PROCEDURE CERVICAL EPIDURAL STEROID INJECTION UNDER FLUOROSCOPIC GUIDANCE SURGEON DR. OMA POWELL CONVICT GUARD NONE ANESTHESIA LOCAL PRE PROCEDURE NOTE THE PATIENT HAS A HISTORY OF CHRONIC CERVICAL PAIN. I EVALUATE THE PATIENT AND REVIEWED THE CHART. I WENT OVER THE RISKS, ALTERNATIVES, AND BENEFITS ASSOCIATED WITH THIS PROCEDURE. THE PATIENT WOULD LIKE TO PROCEED AND GIVE CONSENT TO PERFORMED THE PROCEDURE. THE PATIENT DENIES UNEXPLAINABLE WEIGHT LOSS, FEVER, CHILLS, OR NEW CHANGES IN URINARY OR BOWEL CONTROL DESCRIPTION OF PROCEDURE THE PATIENT WAS BROUGHT TO THE PROCEDURE ROOM AND PLACED IN THE PRONE POSITION. THE CERVICOTHORACIC AREA WAS CLEANED WITH BETADINE SOLUTION AND DRAPED ASEPTICALLY. THE PROCEDURE WAS DONE UNDER STERILE CONDITIONS. I CHECKED LATERALITY AND THE LEVEL WHERE THE PROCEDURE WAS GOING TO BE PERFORMED WITH THE PATIENT AND THE SUPPORTING STAFF AT THE MOMENT OF THE TIME OUT IN THE PROCEDURE ROOM. UNDER FLUOROSCOPIC GUIDANCE, THE TARGET WAS SELECTED AT THE INTERLAMINAR LEVEL OF C7-T1. LIDOCAINE WAS USED TO NUMB THE SKIN AND THE SUBCUTANEOUS TISSUE BELOW IT. EPIDURAL TUOHY NEEDLE 17-GAUGE WAS ADVANCED UNDER FLUOROSCOPIC GUIDANCE AND FOLLOWING PATIENT FEEDBACK UNTIL THE EPIDURAL SPACE WAS REACHED 6 CM DEEP INTO THE SKIN BY THE LOSS OF RESISTANCE TECHNIQUE. ISOVUE M DYE 30%, 0.25 ML, WAS INJECTED SHOWING ADEQUATE SPREAD OF THE DYE. THEN, A SOLUTION OF 3 ML OF NORMAL SALINE WITH DEPO-MEDROL 60 MG WAS INJECTED SLOWLY FOLLOWING PATIENT FEEDBACK. THERE WAS NO EVIDENCE OF BLOOD, PARESTHESIA OR CEREBROSPINAL FLUID DURING THE PROCEDURE. THE PATIENT WAS SENT TO THE RECOVERY ROOM. THE PATIENT WAS MOVING THE EXTREMITIES AND DOING WELL. THERE WAS NO COMPLICATION DURING THE PROCEDURE. FLUOROSCOPY TIME WAS 15 SECONDS POST PROCEDURE NOTE THE PATIENT WILL BE SEEN IN A FOLLOW UP IN THE NEXT FEW WEEKS. INSTRUCTIONS WERE GIVEN, QUESTIONS WERE ANSWERED, AND THE PATIENT EXPRESSED UNDERSTANDING AND AGREES WITH THE PLAN. I, RENALDO CORTES, DOCUMENTED THE ABOVE INFORMATION ACTING A SCRIBE FOR DR. POWELL. I HAVE REVIEWED THE ABOVE DOCUMENT, WRITTEN BY RENALDO BARRIOSIBMichael AND I VERIFY THAT IT IS ACCURATE. DIAGNOSTIC IMAGING [facility] FLUORO GUIDE SPINE INJECTION (PAIN)[id number] PROCEDURE CODES 6045F RADXPS IN END [id number] PXD [id number] CERVICAL/THORACIC W/ IMAGING DISPOSITION & COMMUNICATION FOLLOW UP 3 WEEKS ELECTRONICALLY SIGNED BY OMA POWELL MD, MD ON 08/31/2018 AT 04:42 PM EDT DISCLAIMER : THIS IS A VISIT SUMMARY EXTRACTED FROM THE [employer] CHART. IT IS NOT A COPY OF THE [employer] PROGRESS NOTE. MTDD
== END ==
LOC: M PAIN 15:00
PROVIDERS: ATTEND Anesthesiology
DX: M50.10 Cervical disc disorder with radiculopathy, unspecified cervical region (principal); G89.29 Other chronic pain; I10 Essential (primary) hypertension; K22.70 Barrett's esophagus without dysplasia; G47.30 Sleep apnea, unspecified; M19.90 Unspecified osteoarthritis, unspecified site; Z88.0 Allergy status to penicillin; Z86.59 Personal history of other mental and behavioral disorders

== ENCOUNTER → 2018-08-24 | Outpatient (CLI) | payer MEDICARE ==
--- NOTE | 2018-09-10 23:23 | ECWPNPC ---
PATIENT NAME: KIMBERLEY VALENCIA : 1965 GENDER: MALE VISIT DATE: 08/24/2018 DISCHARGE DATE: 08/24/18 1511 VISIT LOCKED DATE TIME: PHYSICIAN: OMA POWELL MD PHYSICIAN PAGER NO: [id number] [phone] RESOURCE: OMA POWELL MD REASON FOR APPOINTMENT 1. FOLLOW UP PER DR. Kapoor/LB & LEG PAIN HISTORY OF PRESENT ILLNESS HISTORY OF PRESENT ILLNESS: PAIN THE PATIENT DESCRIBES THE PAIN... 52 YEAR OLD MALE PATIENT WITH A HISTORY OF CHRONIC LOW BACK AND LEG PAIN. THE PATIENT DESCRIBES THE PAIN ACHING, STABBING, SHARP, AND CONTINUOUS WITH A PAIN SCORE OF 6-9/10 DEPENDING ON PHYSICAL ACTIVITY. THE PATIENT SAYS THE PAIN IS IN HIS LOW BACK AND RADIATES TO HIS LEGS, BUT MAINLY HIS LEFT LEG, AND ALSO SAYS THAT HE HAS BEEN EXPERIENCING THIS PAIN FOR MANY YEARS. THE PATIENT STATES HE HAS HAD BACK SURGERY IN THE PAST, BUT THE PAIN PERSISTS SINCE THEN. 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 PATIENT DENIES UNEXPLAINABLE WEIGHT LOSS, FEVER, CHILLS, NEW CHANGES ON HIS URINARY OR BOWEL CONTROL. FALL RISK SCREENING: SCREENING :NO FALLS REPORTED IN THE LAST YEAR CURRENT MEDICATIONS TAKING ARTIFICIAL TEARS 0.4 % SOLUTION 1 DROP INTO AFFECTED EYE NEEDED OPHTHALMIC ONCE A DAY TAKING NEXIUM 24HR 20 MG CAPSULE DELAYED RELEASE 1 CAPSULE ORALLY ONCE A DAY TAKING TESTOSTERONE CYPIONATE 200 MG/ML OIL 0.8 ML INTRAMUSCULAR(DR KIERRA ELMORE) EVERY 10 DAYS TAKING RESTASIS 0.05 % EMULSION 1 DROP INTO AFFECTED EYE OPHTHALMIC TWICE A DAY TAKING AMLODIPINE BESYLATE 10 MG TABLET 1 TABLET ORALLY ONCE A DAY TAKING VITAMIN D3 2000 UNIT CAPSULE 1 CAPSULE ORALLY ONCE A DAY TAKING OXYCODONE-ACETAMINOPHEN 10-325 MG TABLET 1 TABLET NEEDED ORALLY EVERY 6 HRS TAKING LISINOPRIL-HYDROCHLOROTHIAZIDE 20-25 MG TABLET 1 TABLET ORALLY ONCE A DAY NOT-TAKING FERROUS SULFATE 325 (65 FE) MG TABLET 1 TABLET ORALLY ONCE A DAY NOT-TAKING LISINOPRIL 10 MG TABLET 1 TABLET ORALLY ONCE A DAY NOT-TAKING CLONAZEPAM 0.5 MG TABLET DISPERSIBLE 1-2 TABLET ON THE TONGUE AND ALLOW TO DISSOLVE ORALLY AT BEDTIME NEEDED FOR INSOMNIA AND RESTLESS LEGS MDD:2 NOT-TAKING LISINOPRIL-HYDROCHLOROTHIAZIDE 20-25 MG TABLET 1 TABLET ORALLY ONCE A DAY NOT-TAKING TIZANIDINE HCL 4 MG TABLET 1 TABLET NEEDED ORALLY THREE TIMES A DAY, NOTES: NONE TAKEN RECENTLY NOT-TAKING VITAMIN D 2000 UNIT CAPSULE 1 CAPSULE ORALLY DAILY NOT-TAKING MECLIZINE HCL 25 MG TABLET CHEWABLE 1 TABLET NEEDED ORALLY ONCE A DAY NOT-TAKING FEXOFENADINE HCL 180 MG TABLET 1 TABLET NEEDED ORALLY ONCE A DAY NOT-TAKING PERCOCET 10-325 MG TABLET 1 TABLET NEEDED ORALLY EVERY 6 HRS MDD4 NOT-TAKING CYMBALTA 30 MG CAPSULE DELAYED RELEASE PARTICLES 1 CAPSULE ORALLY ONCE A DAY NOT-TAKING TOPIRAMATE 25 MG TABLET 1 TABLET ORALLY TWICE A DAY MEDICATION LIST REVIEWED AND RECONCILED WITH THE PATIENT PAST MEDICAL HISTORY HYPERTENSION BARRETS ESOPHAGUS SLEEP APNEA [place] WITH CPAP (PULM ASSOC) BACK PAIN - ([facility]) HYPOTESTOSTERONEMIA (Jermaine ELMORE) MAJOR DEPRESSION, SINGLE EPISODE (MANISH) ANXIETY OA (MULTIPLE LOCATIONS) ASCVD 10-YEAR RISK IS 5.3% IN 08/2016 OSCAR'S ESOPHAGUS: GASTRO IN [place] IBS ALLERGIES PENICILLIN (FOR ALLERGIES USE ONLY): FEET SWELLS - ALLERGY SURGICAL HISTORY TONSILLECTOMY CHILD BILATERAL CARPAL TUNNEL (FISH) 2009 EGD/COLONOSCOPY (KATHRYN IN [place]) 11/2011 LEFT ELBOW CUBITAL TUNNEL TRANSLATION (FISH) 2012 RIGHT CARPAL TUNNEL 07/05/13 COLO/EGD- KATHRYN-SYR- MILD ESOPHAGITIS 05/20 BACK SURGERY- DR SALGADO SOS 01/2017 FAMILY HISTORY FATHER: 70 YRS, PROSTATE CA AT AGE 65, DIAGNOSED WITH HYPERTENSION MOTHER: ALIVE 76 YRS, DIABETES SIBLINGS: BROTHER CROHN'S SISTER THYROID DISEASE DAUGHTER(S): ALIVE, DAUGHTER MVA 1DAUTER(S) . SOCIAL HISTORY GENERAL: TOBACCO USE ARE YOU A:NONSMOKER HIV / HEP-C SCREENING HIV TEST OFFERED TO PATIENT:YES DATE OFFERED:01/28/2017 TEST ACCEPTED:NO REASON:PATIENT DECLINED HEP-C TEST OFFERED TO PATIENT:NO OTHERS AT HOME: SPOUSE. EDUCATION LEVEL OF EDUCATION:HIGH SCHOOL DIET: REGULAR. LANGUAGE LANGUAGES SPOKEN:BRAZILIAN DOMESTIC VIOLENCE DO YOU FEEL SAFE IN YOUR ENVIRONMENT?YES BMI CARE GOAL FOLLOW-UP ABOVE NORMAL BMI FOLLOW-UPLIFESTYLE EDUCATION REGARDING DIET RECREATIONAL DRUG USE DRUG USE?NO PATIENT DENIES ABUSE OR MISSUSED OF ANY MEDICATION. PATIENT DENIES USE OF ANY ILLEGAL SUBSTANCE INCLUDING MARIJUANA OR COCAINE. EXERCISE: NO REGULAR EXERCISE. LEARNING BARRIERS / SPECIAL NEEDS CHANGE FROM LAST VISIT?NO BARRIERS TO LEARNING?NO HEARING IMPAIRED?YES :HEARING AIDES C/O INCREASED HEARING LOSS VISION IMPAIRED?NO COGNITIVELY IMPAIRED?NO READINESS TO LEARN?YES LEARNING PREFERENCES?NO LEARNING CAPABILITIES PRESENT?YES EMOTIONAL BARRIERS?NO SPECIAL DEVICES?NO PERIANESTHESIA RN NEEDED?NO PAIN CLINIC PFS, CLERGY, PUBLIC HEALTH REFERRALS PFS REFERRAL NEEDED?NO CLERGY REFERRAL NEEDED?NO PUBLIC HEALTH REFERRAL NEEDED?NO WAS THE PROVIDER NOTIFIED OF ANY PERTINENT INFO?NO HAS THE PATIENT BEEN EDUCATED REGARDING HIS/HER PLAN OF CARE?YES HAS THE PATIENT BEEN EDUCATED REGARDING PAIN, THE RISK FOR PAIN, THE IMPORTANCE OF EFFECTIVE PAIN MANAGEMENT, AND THE PAIN ASSESSMENT PROCESS?YES LATEX QUESTIONNAIRE LATEX ALLERGY : HAVE YOU EVER DEVELOPED ANY TYPE OF REACTION AFTER HANDLING LATEX PRODUCTS SUCH RUBBER GLOVES, CONDOMS, DIAPHRAGMS, BALLOONS, SOCKS, OR UNDERWEAR?NO LATEX ALLERGY : HAVE YOU EVER DEVELOPED ANY TYPE OF REACTION DURING OR AFTER DENTAL APPOINTMENT, VAGINAL/RECTAL EXAMINATION, SURGICAL PROCEDURE, OR ANY OTHER EXPOSURE?NO LATEX RISK : HAVE YOU EVER HAD ANY DIFFICULTY BREATHING OR HIVES AFTER EATING OR HANDLING ANY FRUITS, OR VEGETABLES; SUCH KIWI, BANANAS, STONE FRUITS, OR CHESTNUTSNO LATEX RISK : DO YOU HAVE A PREVIOUS PERSONAL HISTORY OF MORE THAN NINE SURGERIES, SPINA BIFIDA, OR REPEATED CATHERTIZATIONS? NO LATEX RISK : ARE YOU FREQUENTLY EXPOSED TO LATEX PRODUCTS IN YOUR OCCUPATION?NO DATE ASKED : 07/06/2018 CAFFEINE CAFFEINE USE?YES 1 COFFEE DAILY ADVANCE DIRECTIVE ADVANCE DIRECTIVE DISCUSSED WITH PATIENT:YES HCP-LAUREL VALENCIA FAITH [id number] RASTAFARIAN MARITAL STATUS: . ALCOHOL SCREENING DID YOU HAVE A DRINK CONTAINING ALCOHOL IN THE PAST YEAR?NO POINTS0 INTERPRETATIONNEGATIVE OCCUPATION: DISABLED. SEXUAL HX HAD SEX IN THE LAST 12 MONTHS (VAGINAL, ORAL, OR ANAL)?YES WITHWOMEN ONLY USE PROTECTION?NO HAVE YOU EVER HAD AN STD?NO 08/25/17 0962 REVIEWED WITH PT. ADREVIEWED WITH PATIENT 05/03/18 1540 JSREVIEWED WITH PT 05/19/18 1120 BVREVIEWED WITH PT 06/03/18 1316 BVREVIEWED WITH PATIENT 07/06/18 1039 JS. HOSPITALIZATION/MAJOR DIAGNOSTIC PROCEDURE CHEST PAIN/DYSPNEA, R/O [place] ([place]) 10/15 BACK SURGERY 01/2017 NECK AND LEFT SIDED PAIN AND WEAKNESS 08/2018 REVIEW OF SYSTEMS REVIEWED BY: PROVIDER: OMA POWELL MD . CONSTITUTIONAL: ANY CHANGE IN YOUR MEDICAL CONDITION? NO . CHILLS NO . FEVER NO . INFECTION: DO YOU HAVE NEW INFECTIONS? NO . DO YOU HAVE HISTORY OF MRSA? NO . MUSCULOSKELETAL: ANY NEW PATTERNS OF PAIN OR NUMBNESS? NO . GASTROENTEROLOGY: ANY NEW CHANGE IN BOWEL CONTROL? NO . GENITOURINARY: ANY NEW CHANGE IN BLADDER CONTROL? NO . IS THERE A CHANCE YOU COULD BE ? NO . HEMATOLOGY/LYMPH: DO YOU TAKE ANY BLOOD THINNERS? (FOR EXAMPLE- COUMADIN, PLAVIX, AGGRENOX, PLATEL, PRADAXA, OR XARELTO) NO . WHEN WAS YOUR LAST DOSE? DATE: TIME: . NEUROLOGY: HAVE YOU FALLEN IN THE PAST 12 MONTHS? NO . ANY NEW EXTREMITY NUMBNESS OR WEAKNESS? NO . CARDIOLOGY: DO YOU HAVE A PACEMAKER OR DEFIBRILLATOR? NO . RESPIRATORY: HAVE YOU BEEN SICK IN THE PAST WEEK? NO . FEVER NO . FLU LIKE SYMPTOMS? NO . COUGH NO . INTEGUMENTARY: DO YOU HAVE ANY RASHES OR OPEN SORES? NO . ALLERGIC/IMMUNO: ARE YOU ALLERGIC TO IV DYE? NO . ANY NEW ALLERGIES? NO . PSYCHIATRIC: DO YOU HAVE THOUGHTS OF HURTING YOURSELF OR SOMEONE ELSE? NO . ARE YOU ABUSED, NEGLECTED, OR IN AN UNSAFE ENVIRONMENT? NO . ENDOCRINOLOGY: ARE YOU DIABETIC? NO . OTHER: DO YOU NEED ANY PRESCRIPTIONS? NO . IF YES, PLEASE LIST: ____ . ANY NEW PROBLEMS WITH YOUR MEDICATIONS? NO . WHEN DID YOU LAST EAT? ____ . WHEN DID YOU LAST DRINK? ____ . WHAT DID YOU LAST DRINK? ____ . NAME OF PERSON DRIVING YOU HOME? ____ . DO YOU HAVE ANY OTHER QUESTIONS OR CONCERNS NO . VITAL SIGNS WT 219 LBS, HT 68 IN, BMI 33.30 INDEX, BP 161/83 MM HG, HR 89 /MIN, RR 18 /MIN, TEMP 99.7 F, OXYGEN SAT % 97%, NA INITIALS SC 13:55, REVIEWED BY: EM. EXAMINATION GENERAL EXAMINATION: PATIENT IS ALERT O X 3 AND COOPERATIVE. RIGHT LEG IS WEAKER AT EXTENSION AND FLEXION. STRAIGHT LEG RAISE OF THE RIGHT LEG IS POSITIVE AT 30 DEGREES FOR RADICULOPATHY. MRI OF THE LUMBAR SPINE DONE ON 08/21/2018 SHOWS POST LAMINECTOMY CHANGES AND DISC EXTRUSIONS. ASSESSMENTS LUMBAR POST-LAMINECTOMY SYNDROME - M96.1 (PRIMARY) TREATMENT LUMBAR POST-LAMINECTOMY SYNDROME CLINICAL NOTES: WE DISCUSSED SEVERAL ISSUES WITH MR. VALENCIA'S PAIN MANAGEMENT CASE. I WILL START THE PATIENT ON SOMA 350 MG 1 TABLET NEEDED FOR SPASMS AND PAIN UP TO 3 TABLETS PER DAY FOR A WEEK. DUE TO THE LUMBAR RADICULOPATHY, I WOULD LIKE TO MOVE FORWARD WITH A CAUDAL VS LUMBAR EPIDURAL STEROID INJECTION. WE DISCUSSED THE BENEFITS, RISKS, AND ALTERNATIVES OF THE INJECTION AND THE PATIENT WOULD LIKE TO PROCEED. THE PATIENT WILL FOLLOW UP SEVERAL WEEKS AFTER THE PROCEDURE. INSTRUCTIONS WERE GIVEN, QUESTIONS WERE ANSWERED, PATIENT REPORTS UNDERSTANDING AND AGREES WITH THE PLAN. I, MARIE UNDERWOOD, DOCUMENTED THE ABOVE INFORMATION ACTING A SCRIBE FOR DR. POWELL. I HAVE REVIEWED THE ABOVE DOCUMENT, WRITTEN BY MARIE LOPEZ AND I VERIFY THAT IT IS ACCURATE. . OTHERS START SOMA TABLET, 350 MG, 1 TABLET NEEDED, ORALLY FOR SPASMS AND PAIN, EVERY 8 HOURS NEEDED MDD3, 7 DAYS, 21, REFILLS 0 PREVENTIVE MEDICINE PAIN CLINIC TEACHING: MEDICATIONS PRINTED INFORMATION ON SOMA GIVEN TO AND REVIEWED WITH PT AND HE VERBALIZED UNDERSTANDING. AD. PROCEDURE TEACHING PT DECLINED PRINTED INFORMATION ON EPIDURAL STEROID INJECTION. PRE-PROCEDURE INFORMATION GIVEN TO AND REVIEWED WITH PT AND HE VERBALIZED UNDESTANDING. AD. PROCEDURE CODES FA211 ESTABILISHED PATIENT [facility] FACILITY CHARGE [id number] CURRENT MEDS W/DOSAGES DOCUMENTED [id number] PAIN ASSESS POS TOOL F/U PLAN DOC DISPOSITION & COMMUNICATION FOLLOW UP 4 WEEKS (REASON: CAUDAL/LUMBAR EPIDURAL 08/25/18 AT 9 AM) ELECTRONICALLY SIGNED BY OMA POWELL MD, MD ON 09/10/2018 AT 02:44 PM EDT DISCLAIMER : THIS IS A VISIT SUMMARY EXTRACTED FROM THE [employer] CHART. IT IS NOT A COPY OF THE [employer] PROGRESS NOTE. MTDD
== END ==
LOC: M PAIN 14:00
PROVIDERS: ATTEND Anesthesiology
DX: M96.1 Postlaminectomy syndrome, not elsewhere classified (principal); I10 Essential (primary) hypertension; G47.30 Sleep apnea, unspecified; Z86.59 Personal history of other mental and behavioral disorders; M19.90 Unspecified osteoarthritis, unspecified site; Z88.0 Allergy status to penicillin; Z79.899 Other long term (current) drug therapy

== ENCOUNTER → 2018-08-25 | Outpatient (CLI) | payer MEDICARE ==
[~2018-08-25] MED LIST changes: +ISOVUE-M 300 61% 15ML VIAL (Q9967) As Ordered ONE; +LIDOCAINE 1% SDV INJ 30 ML VIAL As Ordered ONE; +diazePAM 5 MG TAB As Ordered ONE; +methylPREDNISolone SUSP 40 MG/ML (DEPO-medrol) VIAL (J1030) As Ordered ONE; +oxyCODONE 5MG TAB As Ordered ONE
--- NOTE | 2018-08-25 18:16 | REP ---
C-ARM VIEWS SACRUM AND COCCYX: CLINICAL HISTORY: Pain. Three C-ARM views of the sacrum and coccyx are performed during injection by Dr. Rod. Caudal epidural injection is performed. Contrast is injected. 52 seconds of fluoroscopy time was utilized. Electronically Signed by Shailesh Buchanan MD 08/30/2018 09:53 A
--- NOTE | 2018-09-10 23:22 | ECWPNPC ---
PATIENT NAME: KIMBERLEY VALENCIA : 1965 GENDER: MALE VISIT DATE: 08/25/2018 DISCHARGE DATE: 08/25/18 1231 VISIT LOCKED DATE TIME: PHYSICIAN: OMA POWELL MD PHYSICIAN PAGER NO: SKHC NQ [phone] RESOURCE: OMA POWELL MD REASON FOR APPOINTMENT 1. CAUDAL/LUMBAR EPIDURAL HISTORY OF PRESENT ILLNESS HISTORY OF PRESENT ILLNESS: PAIN THE PATIENT DESCRIBES THE PAIN... FALL RISK SCREENING: SCREENING :NO FALLS REPORTED IN THE LAST YEAR CURRENT MEDICATIONS TAKING ARTIFICIAL TEARS 0.4 % SOLUTION 1 DROP INTO AFFECTED EYE NEEDED OPHTHALMIC ONCE A DAY, NOTES: 08/25/18 AM TAKING NEXIUM 24HR 20 MG CAPSULE DELAYED RELEASE 1 CAPSULE ORALLY ONCE A DAY, NOTES: 08/25/18 AM TAKING TESTOSTERONE CYPIONATE 200 MG/ML OIL 0.8 ML INTRAMUSCULAR(DR KIERRA ELMORE) EVERY 10 DAYS, NOTES: NONE LATELY TAKING RESTASIS 0.05 % EMULSION 1 DROP INTO AFFECTED EYE OPHTHALMIC TWICE A DAY, NOTES: 08/25/18 AM TAKING AMLODIPINE BESYLATE 10 MG TABLET 1 TABLET ORALLY ONCE A DAY, NOTES: 08/25/18 AM TAKING VITAMIN D3 2000 UNIT CAPSULE 1 CAPSULE ORALLY ONCE A DAY, NOTES: 08/25/18 AM TAKING OXYCODONE-ACETAMINOPHEN 10-325 MG TABLET 1 TABLET NEEDED ORALLY EVERY 6 HRS, NOTES: 08/25/18 AM TAKING LISINOPRIL-HYDROCHLOROTHIAZIDE 20-25 MG TABLET 1 TABLET ORALLY ONCE A DAY, NOTES: 08/25/18 AM TAKING SOMA 350 MG TABLET 1 TABLET NEEDED ORALLY FOR SPASMS AND PAIN EVERY 8 HOURS NEEDED MDD3, NOTES: 08/24/18 NOT-TAKING FERROUS SULFATE 325 (65 FE) MG TABLET 1 TABLET ORALLY ONCE A DAY NOT-TAKING LISINOPRIL 10 MG TABLET 1 TABLET ORALLY ONCE A DAY NOT-TAKING CLONAZEPAM 0.5 MG TABLET DISPERSIBLE 1-2 TABLET ON THE TONGUE AND ALLOW TO DISSOLVE ORALLY AT BEDTIME NEEDED FOR INSOMNIA AND RESTLESS LEGS MDD:2 NOT-TAKING LISINOPRIL-HYDROCHLOROTHIAZIDE 20-25 MG TABLET 1 TABLET ORALLY ONCE A DAY NOT-TAKING TIZANIDINE HCL 4 MG TABLET 1 TABLET NEEDED ORALLY THREE TIMES A DAY, NOTES: NONE TAKEN RECENTLY NOT-TAKING VITAMIN D 2000 UNIT CAPSULE 1 CAPSULE ORALLY DAILY NOT-TAKING MECLIZINE HCL 25 MG TABLET CHEWABLE 1 TABLET NEEDED ORALLY ONCE A DAY NOT-TAKING FEXOFENADINE HCL 180 MG TABLET 1 TABLET NEEDED ORALLY ONCE A DAY NOT-TAKING PERCOCET 10-325 MG TABLET 1 TABLET NEEDED ORALLY EVERY 6 HRS MDD4 NOT-TAKING CYMBALTA 30 MG CAPSULE DELAYED RELEASE PARTICLES 1 CAPSULE ORALLY ONCE A DAY NOT-TAKING TOPIRAMATE 25 MG TABLET 1 TABLET ORALLY TWICE A DAY MEDICATION LIST REVIEWED AND RECONCILED WITH THE PATIENT PAST MEDICAL HISTORY HYPERTENSION BARRETS ESOPHAGUS SLEEP [place] WITH CPAP (PULM ASSOC) BACK PAIN - ([facility]) HYPOTESTOSTERONEMIA (C. FISH) MAJOR DEPRESSION, SINGLE EPISODE (MANISH) ANXIETY OA (MULTIPLE LOCATIONS) ASCVD 10-YEAR RISK IS 5.3% IN 08/2016 OSCAR'S ESOPHAGUS: GASTRO IN [place] IBS ALLERGIES PENICILLIN (FOR ALLERGIES USE ONLY): FEET SWELLS - ALLERGY SURGICAL HISTORY TONSILLECTOMY CHILD BILATERAL CARPAL TUNNEL (FISH) 2009 EGD/COLONOSCOPY (KATHRYN IN [place]) 11/2011 LEFT ELBOW CUBITAL TUNNEL TRANSLATION (FISH) 2012 RIGHT CARPAL TUNNEL 07/05/13 COLO/EGD- KATHRYN-SYR- MILD ESOPHAGITIS 05/20 BACK SURGERY- DR SALGADO SOS 01/2017 FAMILY HISTORY FATHER: 70 YRS, PROSTATE CA AT AGE 65, DIAGNOSED WITH HYPERTENSION MOTHER: ALIVE 76 YRS, DIABETES SIBLINGS: BROTHER CROHN'S SISTER THYROID DISEASE DAUGHTER(S): ALIVE, DAUGHTER MVA 1DAUGHTER(S) . SOCIAL HISTORY GENERAL: TOBACCO USE ARE YOU A:NONSMOKER HIV / HEP-C SCREENING HIV TEST OFFERED TO PATIENT:YES DATE OFFERED:01/28/2017 TEST ACCEPTED:NO REASON:PATIENT DECLINED HEP-C TEST OFFERED TO PATIENT:NO OTHERS AT HOME: SPOUSE. EDUCATION LEVEL OF EDUCATION:HIGH SCHOOL DIET: REGULAR. LANGUAGE LANGUAGES SPOKEN:LIBYAN DOMESTIC VIOLENCE DO YOU FEEL SAFE IN YOUR ENVIRONMENT?YES BMI CARE GOAL FOLLOW-UP ABOVE NORMAL BMI FOLLOW-UPLIFESTYLE EDUCATION REGARDING DIET RECREATIONAL DRUG USE DRUG USE?NO PATIENT DENIES ABUSE OR MISSUSED OF ANY MEDICATION. PATIENT DENIES USE OF ANY ILLEGAL SUBSTANCE INCLUDING MARIJUANA OR COCAINE. EXERCISE: NO REGULAR EXERCISE. LEARNING BARRIERS / SPECIAL NEEDS CHANGE FROM LAST VISIT?NO BARRIERS TO LEARNING?NO HEARING IMPAIRED?YES :HEARING AIDES C/O INCREASED HEARING LOSS VISION IMPAIRED?NO COGNITIVELY IMPAIRED?NO READINESS TO LEARN?YES LEARNING PREFERENCES?NO LEARNING CAPABILITIES PRESENT?YES EMOTIONAL BARRIERS?NO SPECIAL DEVICES?NO PRINT PRODUCTION COORDINATOR NEEDED?NO PAIN CLINIC PFS, CLERGY, PUBLIC HEALTH REFERRALS PFS REFERRAL NEEDED?NO CLERGY REFERRAL NEEDED?NO PUBLIC HEALTH REFERRAL NEEDED?NO WAS THE PROVIDER NOTIFIED OF ANY PERTINENT INFO?NO HAS THE PATIENT BEEN EDUCATED REGARDING HIS/HER PLAN OF CARE?YES HAS THE PATIENT BEEN EDUCATED REGARDING PAIN, THE RISK FOR PAIN, THE IMPORTANCE OF EFFECTIVE PAIN MANAGEMENT, AND THE PAIN ASSESSMENT PROCESS?YES LATEX QUESTIONNAIRE LATEX ALLERGY : HAVE YOU EVER DEVELOPED ANY TYPE OF REACTION AFTER HANDLING LATEX PRODUCTS SUCH RUBBER GLOVES, CONDOMS, DIAPHRAGMS, BALLOONS, SOCKS, OR UNDERWEAR?NO LATEX ALLERGY : HAVE YOU EVER DEVELOPED ANY TYPE OF REACTION DURING OR AFTER DENTAL APPOINTMENT, VAGINAL/RECTAL EXAMINATION, SURGICAL PROCEDURE, OR ANY OTHER EXPOSURE?NO LATEX RISK : HAVE YOU EVER HAD ANY DIFFICULTY BREATHING OR HIVES AFTER EATING OR HANDLING ANY FRUITS, OR VEGETABLES; SUCH KIWI, BANANAS, STONE FRUITS, OR CHESTNUTSNO LATEX RISK : DO YOU HAVE A PREVIOUS PERSONAL HISTORY OF MORE THAN NINE SURGERIES, SPINA BIFIDA, OR REPEATED CATHERTIZATIONS? NO LATEX RISK : ARE YOU FREQUENTLY EXPOSED TO LATEX PRODUCTS IN YOUR OCCUPATION?NO DATE ASKED : 07/06/2018 CAFFEINE CAFFEINE USE?YES 1 COFFEE DAILY ADVANCE DIRECTIVE ADVANCE DIRECTIVE DISCUSSED WITH PATIENT:YES HCP-LAUREL VALENCIA MORMONISM [id number] [place] MARITAL STATUS: . ALCOHOL SCREENING DID YOU HAVE A DRINK CONTAINING ALCOHOL IN THE PAST YEAR?NO POINTS0 INTERPRETATIONNEGATIVE OCCUPATION: DISABLED. SEXUAL HX HAD SEX IN THE LAST 12 MONTHS (VAGINAL, ORAL, OR ANAL)?YES WITHWOMEN ONLY USE PROTECTION?NO HAVE YOU EVER HAD AN STD?NO 08/25/17 0945 REVIEWED WITH PT. ADREVIEWED WITH PATIENT 05/03/18 1540 JSREVIEWED WITH PT 05/19/18 1120 BVREVIEWED WITH PT 06/03/18 1316 BVREVIEWED WITH PATIENT 07/06/18 1039 JS. HOSPITALIZATION/MAJOR DIAGNOSTIC PROCEDURE CHEST PAIN/DYSPNEA, R/O [place] ([place]) 10/15 BACK SURGERY 01/2017 NECK AND LEFT SIDED PAIN AND WEAKNESS 08/2018 REVIEW OF SYSTEMS REVIEWED BY: PROVIDER: . CONSTITUTIONAL: ANY CHANGE IN YOUR MEDICAL CONDITION? NO . CHILLS NO . FEVER NO . INFECTION: DO YOU HAVE NEW INFECTIONS? NO . DO YOU HAVE HISTORY OF MRSA? NO . MUSCULOSKELETAL: ANY NEW PATTERNS OF PAIN OR NUMBNESS? YES, LOW BACK PAIN . GASTROENTEROLOGY: ANY NEW CHANGE IN BOWEL CONTROL? NO . GENITOURINARY: ANY NEW CHANGE IN BLADDER CONTROL? NO . IS THERE A CHANCE YOU COULD BE ? NO . HEMATOLOGY/LYMPH: DO YOU TAKE ANY BLOOD THINNERS? (FOR EXAMPLE- COUMADIN, PLAVIX, AGGRENOX, PLATEL, PRADAXA, OR XARELTO) NO . WHEN WAS YOUR LAST DOSE? DATE: TIME: . NEUROLOGY: HAVE YOU FALLEN IN THE PAST 12 MONTHS? NO . ANY NEW EXTREMITY NUMBNESS OR WEAKNESS? YES, LEFT ARM PAIN . CARDIOLOGY: DO YOU HAVE A PACEMAKER OR DEFIBRILLATOR? NO . RESPIRATORY: HAVE YOU BEEN SICK IN THE PAST WEEK? NO . FEVER NO . FLU LIKE SYMPTOMS? NO . COUGH NO . INTEGUMENTARY: DO YOU HAVE ANY RASHES OR OPEN SORES? NO . ALLERGIC/IMMUNO: ARE YOU ALLERGIC TO IV DYE? NO . ANY NEW ALLERGIES? NO . PSYCHIATRIC: DO YOU HAVE THOUGHTS OF HURTING YOURSELF OR SOMEONE ELSE? NO . ARE YOU ABUSED, NEGLECTED, OR IN AN UNSAFE ENVIRONMENT? NO . ENDOCRINOLOGY: ARE YOU DIABETIC? NO . OTHER: DO YOU NEED ANY PRESCRIPTIONS? NO . IF YES, PLEASE LIST: ____ . ANY NEW PROBLEMS WITH YOUR MEDICATIONS? NO . WHEN DID YOU LAST EAT? 08/24/181999 . WHEN DID YOU LAST DRINK? 08/25/18 06 . WHAT DID YOU LAST DRINK? BLACK COFFEE . NAME OF PERSON DRIVING YOU HOME? LAUREL . DO YOU HAVE ANY OTHER QUESTIONS OR CONCERNS NO . VITAL SIGNS WT 219 LBS, HT 68 IN, BMI 33.30 INDEX, BP 143/82 MM HG, HR 81 /MIN, RR 18 /MIN, TEMP 98.8 F, OXYGEN SAT % 98%, NA INITIALS SC 08:55, REVIEWED BY: EM. ASSESSMENTS LUMBAR POST-LAMINECTOMY SYNDROME - M96.1 (PRIMARY) LUMBOSACRAL SPINAL STENOSIS - M48.07 PROCEDURES PN CAUDAL EPIDURALS PRE PROCEDURE DIAGNOSIS LUMBAR POST LAMINECTOMY PAIN SYNDROME POST PROCEDURE DIAGNOSIS LUMBAR POST LAMINECTOMY PAIN SYNDROME PROCEDURE CAUDAL EPIDURAL STEROID INJECTION UNDER FLUOROSCOPIC GUIDANCE. SURGEON DR. OMA POWELL DIRECTOR OF ENVIRONMENTAL SERVICES NONE ANESTHESIA LOCAL PRE PROCEDURE NOTE THE PATIENT HAS HISTORY OF CHRONIC LOW BACK PAIN. I EVALUATE THE PATIENT AND REVIEWED THE CHART. I WENT OVER THE RISKS, ALTERNATIVES, AND BENEFITS ASSOCIATED WITH THIS PROCEDURE. THE PATIENT WOULD LIKE TO PROCEED AND GIVE CONSENT TO PERFORMED THE PROCEDURE. THE PATIENT DENIES UNEXPLAINABLE WEIGHT LOSS, FEVER, CHILLS, OR NEW CHANGES IN URINARY OR BOWEL CONTROL. DESCRIPTION OF PROCEDURE THE PATIENT WAS BROUGHT TO THE PROCEDURE ROOM AND PLACED IN THE PRONE POSITION. THE LUMBOSACRAL AREA WAS CLEANED WITH BETADINE SOLUTION AND DRAPED ASEPTICALLY. THE PROCEDURE WAS DONE UNDER STERILE CONDITIONS. I CHECKED LATERALITY AND THE LEVEL WHERE THE PROCEDURE WAS GOING TO BE PERFORMED WITH THE PATIENT AND THE SUPPORTING STAFF AT THE MOMENT OF THE TIME OUT IN THE PROCEDURE ROOM. UNDER FLUOROSCOPIC GUIDANCE, THE TARGET POINT WAS SELECTED AT THE EPIDURAL SPACE BELOW THE SACROCOCCYGEAL LIGAMENT. LIDOCAINE 0.5% WAS USE TO NUMB THE SKIN AND THE SUBCUTANEOUS TISSUE BELOW IT. AN EPIDURAL TUOHY NEEDLE, 16-GAUGE, WAS ADVANCED UNDER FLUOROSCOPIC GUIDANCE AND FOLLOWING PATIENT FEEDBACK UNTIL THE EPIDURAL SPACE WAS REACHED 4 CM DEEP INTO THE SKIN BY THE LOSS OF RESISTANCE TECHNIQUE. AN EPIMED EPIDURAL CATHETER 19 G WAS ADVANCED UNDER FLUOROSCOPY AND PLACED AT THE LEVEL OF L5. ISOVUE M DYE 30%, 0.25 ML, WAS INJECTED SHOWING ADEQUATE SPREAD OF THE DYE. THEN, A SOLUTION OF 6 ML OF NORMAL SALINE WITH DEPO-MEDROL 60 MG WAS INJECTED SLOWLY FOLLOWING THE PATIENT FEEDBACK. THERE WAS NO EVIDENCE OF BLOOD, PARESTHESIA OR CEREBROSPINAL FLUID DURING THE PROCEDURE. THE PATIENT WAS SENT TO THE RECOVERY ROOM. THE PATIENT WAS MOVING THE EXTREMITIES AND DOING WELL. THERE WAS NO COMPLICATION DURING THE PROCEDURE. FLUOROSCOPY TIME WAS 52 SECONDS POST PROCEDURE NOTE THE PATIENT WILL BE SEEN IN A FOLLOW UP IN THE NEXT FEW WEEKS. INSTRUCTIONS WERE GIVEN, QUESTIONS WERE ANSWERED, AND THE PATIENT EXPRESSED UNDERSTANDING AND AGREES WITH THE PLAN. I, RENALDO CORTES, DOCUMENTED THE ABOVE INFORMATION ACTING A SCRIBE FOR DR. POWELL. I HAVE REVIEWED THE ABOVE DOCUMENT, WRITTEN BY RENALDO CORTES SCRIBMichael AND I VERIFY THAT IT IS ACCURATE. DIAGNOSTIC IMAGING [facility] FLUORO GUIDE SPINE INJECTION (PAIN)[id number] PROCEDURE CODES 6045F RADXPS IN END [id number] PXD [id number] LUMBAR/SACRAL W/ IMAGING DISPOSITION & COMMUNICATION FOLLOW UP 3 WEEKS ELECTRONICALLY SIGNED BY OMA POWELL MD, MD ON 09/10/2018 AT 03:24 PM EDT DISCLAIMER : THIS IS A VISIT SUMMARY EXTRACTED FROM THE [employer] CHART. IT IS NOT A COPY OF THE [employer] PROGRESS NOTE. MTDD
== END ==
LOC: M PAIN 09:00
PROVIDERS: ATTEND Anesthesiology
DX: M48.07 Spinal stenosis, lumbosacral region (principal); M96.1 Postlaminectomy syndrome, not elsewhere classified; I10 Essential (primary) hypertension; Z79.891 Long term (current) use of opiate analgesic; Z79.899 Other long term (current) drug therapy; Z88.0 Allergy status to penicillin
CPT/HCPCS: 62323; J1030; Q9967

== ENCOUNTER → 2018-09-03 | Outpatient (CLI) | payer MEDICARE ==
[~2018-09-03] MED LIST changes: -ISOVUE-M 300 61% 15ML VIAL (Q9967) As Ordered ONE; -LIDOCAINE 1% SDV INJ 30 ML VIAL As Ordered ONE; -diazePAM 5 MG TAB As Ordered ONE; -methylPREDNISolone SUSP 40 MG/ML (DEPO-medrol) VIAL (J1030) As Ordered ONE; -oxyCODONE 5MG TAB As Ordered ONE
[2018-09-03 09:34] LABS: HEMATOCRIT 39.7 % (42.0-52.0); HEMOGLOBIN 12.4 g/dl (13.5-17.5)
== END ==
LOC: M LAB 09:08
PROVIDERS: ATTEND Nurse Practitioner Family
DX: E29.1 Testicular hypofunction (principal)
CPT/HCPCS: 36415; 84403; 85014; 85018; G0103

== ENCOUNTER → 2018-09-06 | Outpatient (CLI) | payer MEDICARE ==
--- NOTE | 2018-09-22 02:08 | ECWPNPC ---
PATIENT NAME: KIMBERLEY VALENCIA : 1965 GENDER: MALE VISIT DATE: 09/06/2018 DISCHARGE DATE: 09/06/18 1158 VISIT LOCKED DATE TIME: PHYSICIAN: WILLIAM FREEMAN PHYSICIAN PAGER NO: [id number] [phone] RESOURCE: WILLIAM FREEMAN REASON FOR APPOINTMENT 1. POST PROCEDURE HISTORY OF PRESENT ILLNESS HISTORY OF PRESENT ILLNESS: HERE FOR POST PROCEDURE F/U.HAD [facility] DURING A RECENT HOSPITAL STAY.HE DID VERY WELL POST PROCEDURE WITH LESS NECK PAIN AND LEFT ARM PAIN.CHIEF AREA OF PAIN IS LOW BACK AND LEFT LEG.HE DID BENEFIT FROM LESI DONE ON 08/25/18.REPORTING LESS WEAKNESS IN LEFT LEG.RATING LBP 5/10 VAS. PAIN THE PATIENT DESCRIBES THE PAIN... FALL RISK SCREENING: SCREENING :NO FALLS REPORTED IN THE LAST YEAR CURRENT MEDICATIONS TAKING ARTIFICIAL TEARS 0.4 % SOLUTION 1 DROP INTO AFFECTED EYE NEEDED OPHTHALMIC ONCE A DAY TAKING NEXIUM 24HR 20 MG CAPSULE DELAYED RELEASE 1 CAPSULE ORALLY ONCE A DAY TAKING TESTOSTERONE CYPIONATE 200 MG/ML OIL 0.8 ML INTRAMUSCULAR(DR KIERRA ELMORE) EVERY 10 DAYS, NOTES: NONE LATELY TAKING RESTASIS 0.05 % EMULSION 1 DROP INTO AFFECTED EYE OPHTHALMIC TWICE A DAY TAKING AMLODIPINE BESYLATE 10 MG TABLET 1 TABLET ORALLY ONCE A DAY TAKING VITAMIN D3 2000 UNIT CAPSULE 1 CAPSULE ORALLY ONCE A DAY TAKING OXYCODONE-ACETAMINOPHEN 10-325 MG TABLET 1 TABLET NEEDED ORALLY EVERY 6 HRS TAKING LISINOPRIL-HYDROCHLOROTHIAZIDE 20-25 MG TABLET 1 TABLET ORALLY ONCE A DAY TAKING FERROUS SULFATE 325 (65 FE) MG TABLET 1 TABLET ORALLY ONCE A DAY TAKING LISINOPRIL 10 MG TABLET 1 TABLET ORALLY ONCE A DAY TAKING LISINOPRIL-HYDROCHLOROTHIAZIDE 20-25 MG TABLET 1 TABLET ORALLY ONCE A DAY NOT-TAKING SOMA 350 MG TABLET 1 TABLET NEEDED ORALLY FOR SPASMS AND PAIN EVERY 8 HOURS NEEDED MDD3 NOT-TAKING CLONAZEPAM 0.5 MG TABLET DISPERSIBLE 1-2 TABLET ON THE TONGUE AND ALLOW TO DISSOLVE ORALLY AT BEDTIME NEEDED FOR INSOMNIA AND RESTLESS LEGS MDD:2 NOT-TAKING TIZANIDINE HCL 4 MG TABLET 1 TABLET NEEDED ORALLY THREE TIMES A DAY, NOTES: NONE TAKEN RECENTLY NOT-TAKING VITAMIN D 2000 UNIT CAPSULE 1 CAPSULE ORALLY DAILY NOT-TAKING MECLIZINE HCL 25 MG TABLET CHEWABLE 1 TABLET NEEDED ORALLY ONCE A DAY NOT-TAKING FEXOFENADINE HCL 180 MG TABLET 1 TABLET NEEDED ORALLY ONCE A DAY NOT-TAKING PERCOCET 10-325 MG TABLET 1 TABLET NEEDED ORALLY EVERY 6 HRS MDD4 NOT-TAKING CYMBALTA 30 MG CAPSULE DELAYED RELEASE PARTICLES 1 CAPSULE ORALLY ONCE A DAY NOT-TAKING TOPIRAMATE 25 MG TABLET 1 TABLET ORALLY TWICE A DAY MEDICATION LIST REVIEWED AND RECONCILED WITH THE PATIENT PAST MEDICAL HISTORY HYPERTENSION BARRETS ESOPHAGUS SLEEP APNEA [place] WITH CPAP (PULM ASSOC) BACK PAIN - ([facility]) HYPOTESTOSTERONEMIA ([place]) MAJOR DEPRESSION, SINGLE EPISODE (MANISH) ANXIETY OA (MULTIPLE LOCATIONS) ASCVD 10-YEAR RISK IS 5.3% IN 08/2016 OSCAR'S ESOPHAGUS: GASTRO IN [place] IBS ALLERGIES PENICILLIN (FOR ALLERGIES USE ONLY): FEET SWELLS - ALLERGY SURGICAL HISTORY TONSILLECTOMY CHILD BILATERAL CARPAL TUNNEL (FISH) 2009 EGD/COLONOSCOPY (KATHRYN IN [place]) 11/2011 LEFT ELBOW CUBITAL TUNNEL TRANSLATION (FISH) 2012 RIGHT CARPAL TUNNEL 07/05/13 COLO/EGD- KATHRYN-SYR- MILD ESOPHAGITIS 05/20 BACK SURGERY- DR SALGADO SOS 01/2017 FAMILY HISTORY FATHER: 70 YRS, PROSTATE CA AT AGE 65, DIAGNOSED WITH HYPERTENSION MOTHER: ALIVE 76 YRS, DIABETES SIBLINGS: BROTHER CROHN'S SISTER THYROID DISEASE DAUGHTER(S): ALIVE, DAUGHTER MVA 1DAUGHTER(S) . SOCIAL HISTORY GENERAL: TOBACCO USE ARE YOU A:NONSMOKER HIV / HEP-C SCREENING HIV TEST OFFERED TO PATIENT:YES DATE OFFERED:01/28/2017 TEST ACCEPTED:NO REASON:PATIENT DECLINED HEP-C TEST OFFERED TO PATIENT:NO OTHERS AT HOME: SPOUSE. EDUCATION LEVEL OF EDUCATION:HIGH SCHOOL DIET: REGULAR. LANGUAGE LANGUAGES SPOKEN:OCCITAN DOMESTIC VIOLENCE DO YOU FEEL SAFE IN YOUR ENVIRONMENT?YES BMI CARE GOAL FOLLOW-UP ABOVE NORMAL BMI FOLLOW-UPLIFESTYLE EDUCATION REGARDING DIET RECREATIONAL DRUG USE DRUG USE?NO PATIENT DENIES ABUSE OR MISSUSED OF ANY MEDICATION. PATIENT DENIES USE OF ANY ILLEGAL SUBSTANCE INCLUDING MARIJUANA OR COCAINE. EXERCISE: NO REGULAR EXERCISE. LEARNING BARRIERS / SPECIAL NEEDS CHANGE FROM LAST VISIT?NO BARRIERS TO LEARNING?NO HEARING IMPAIRED?YES :HEARING AIDES C/O INCREASED HEARING LOSS VISION IMPAIRED?NO COGNITIVELY IMPAIRED?NO READINESS TO LEARN?YES LEARNING PREFERENCES?NO LEARNING CAPABILITIES PRESENT?YES EMOTIONAL BARRIERS?NO SPECIAL DEVICES?NO CONTAINER WASHER MACHINE NEEDED?NO PAIN CLINIC PFS, CLERGY, PUBLIC HEALTH REFERRALS PFS REFERRAL NEEDED?NO CLERGY REFERRAL NEEDED?NO PUBLIC HEALTH REFERRAL NEEDED?NO WAS THE PROVIDER NOTIFIED OF ANY PERTINENT INFO?NO HAS THE PATIENT BEEN EDUCATED REGARDING HIS/HER PLAN OF CARE?YES HAS THE PATIENT BEEN EDUCATED REGARDING PAIN, THE RISK FOR PAIN, THE IMPORTANCE OF EFFECTIVE PAIN MANAGEMENT, AND THE PAIN ASSESSMENT PROCESS?YES LATEX QUESTIONNAIRE LATEX ALLERGY : HAVE YOU EVER DEVELOPED ANY TYPE OF REACTION AFTER HANDLING LATEX PRODUCTS SUCH RUBBER GLOVES, CONDOMS, DIAPHRAGMS, BALLOONS, SOCKS, OR UNDERWEAR?NO LATEX ALLERGY : HAVE YOU EVER DEVELOPED ANY TYPE OF REACTION DURING OR AFTER DENTAL APPOINTMENT, VAGINAL/RECTAL EXAMINATION, SURGICAL PROCEDURE, OR ANY OTHER EXPOSURE?NO LATEX RISK : HAVE YOU EVER HAD ANY DIFFICULTY BREATHING OR HIVES AFTER EATING OR HANDLING ANY FRUITS, OR VEGETABLES; SUCH KIWI, BANANAS, STONE FRUITS, OR CHESTNUTSNO LATEX RISK : DO YOU HAVE A PREVIOUS PERSONAL HISTORY OF MORE THAN NINE SURGERIES, SPINA BIFIDA, OR REPEATED CATHERTIZATIONS? NO LATEX RISK : ARE YOU FREQUENTLY EXPOSED TO LATEX PRODUCTS IN YOUR OCCUPATION?NO DATE ASKED : 07/06/2018 CAFFEINE CAFFEINE USE?YES 1 COFFEE DAILY ADVANCE DIRECTIVE ADVANCE DIRECTIVE DISCUSSED WITH PATIENT:YES HCP-LAUREL VALENCIA RASTAFARIAN [id number] CONFUCIANIST MARITAL STATUS: . ALCOHOL SCREENING DID YOU HAVE A DRINK CONTAINING ALCOHOL IN THE PAST YEAR?NO POINTS0 INTERPRETATIONNEGATIVE OCCUPATION: DISABLED. SEXUAL HX HAD SEX IN THE LAST 12 MONTHS (VAGINAL, ORAL, OR ANAL)?YES WITHWOMEN ONLY USE PROTECTION?NO HAVE YOU EVER HAD AN STD?NO 08/25/17 0945 REVIEWED WITH PT. ADREVIEWED WITH PATIENT 05/03/18 1540 JSREVIEWED WITH PT 05/19/18 1120 BVREVIEWED WITH PT 06/03/18 1316 BVREVIEWED WITH PATIENT 07/06/18 1039 JS. HOSPITALIZATION/MAJOR DIAGNOSTIC PROCEDURE CHEST [facility] BACK SURGERY 01/2017 NECK AND LEFT SIDED PAIN AND WEAKNESS 08/2018 REVIEW OF SYSTEMS REVIEWED BY: PROVIDER: WILLIAM DYE . CONSTITUTIONAL: ANY CHANGE IN YOUR MEDICAL CONDITION? NO . CHILLS NO . FEVER NO . INFECTION: DO YOU HAVE NEW INFECTIONS? NO . DO YOU HAVE HISTORY OF MRSA? NO . MUSCULOSKELETAL: ANY NEW PATTERNS OF PAIN OR NUMBNESS? NO . GASTROENTEROLOGY: ANY NEW CHANGE IN BOWEL CONTROL? NO . GENITOURINARY: ANY NEW CHANGE IN BLADDER CONTROL? NO . IS THERE A CHANCE YOU COULD BE ? NO . HEMATOLOGY/LYMPH: DO YOU TAKE ANY BLOOD THINNERS? (FOR EXAMPLE- COUMADIN, PLAVIX, AGGRENOX, PLATEL, PRADAXA, OR XARELTO) NO . WHEN WAS YOUR LAST DOSE? DATE: TIME: . NEUROLOGY: HAVE YOU FALLEN IN THE PAST 12 MONTHS? NO . ANY NEW EXTREMITY NUMBNESS OR WEAKNESS? NO . CARDIOLOGY: DO YOU HAVE A PACEMAKER OR DEFIBRILLATOR? NO . RESPIRATORY: HAVE YOU BEEN SICK IN THE PAST WEEK? NO . FEVER NO . FLU LIKE SYMPTOMS? NO . COUGH NO . INTEGUMENTARY: DO YOU HAVE ANY RASHES OR OPEN SORES? NO . ALLERGIC/IMMUNO: ARE YOU ALLERGIC TO IV DYE? NO . ANY NEW ALLERGIES? NO . PSYCHIATRIC: DO YOU HAVE THOUGHTS OF HURTING YOURSELF OR SOMEONE ELSE? NO . ARE YOU ABUSED, NEGLECTED, OR IN AN UNSAFE ENVIRONMENT? NO . ENDOCRINOLOGY: ARE YOU DIABETIC? NO . OTHER: DO YOU NEED ANY PRESCRIPTIONS? NO . IF YES, PLEASE LIST: ____ . ANY NEW PROBLEMS WITH YOUR MEDICATIONS? NO . WHEN DID YOU LAST EAT? ____ . WHEN DID YOU LAST DRINK? ____ . WHAT DID YOU LAST DRINK? ____ . NAME OF PERSON DRIVING YOU HOME? ____ . DO YOU HAVE ANY OTHER QUESTIONS OR CONCERNS NO . VITAL SIGNS WT 219 LBS, HT 68 IN, BMI 33.30 INDEX, BP 137/87 MM HG, HR 80 /MIN, RR 18 /MIN, TEMP 96.8 F, OXYGEN SAT % 97%, NA INITIALS AW 1112. EXAMINATION GENERAL EXAMINATION: GENERAL APPEARANCE: ALERT,NO DISTRESS . PSYCH AFFECT NORMAL . LUNGS: LUNG SOUNDS ARE CLEAR . HEART: HEART RATE REGULAR . MUSCULOSKELETAL: MST 5/5 BILAT. LOWER EXTREMITIES . LUMBAR SACRAL SPINE TENDERNESS LEFT SIJ . DIAGNOSTIC TESTS REVIEWEDMRI L/S [id number] . ASSESSMENTS LUMBAR POST-LAMINECTOMY SYNDROME - M96.1 (PRIMARY) LUMBOSACRAL SPINAL STENOSIS - M48.07 TREATMENT LUMBAR POST-LAMINECTOMY SYNDROME NOTES: LEFT SIJ, PATIENT WAS ADVISED TO START A WALKING PROGRAM TO STRENGTHEN LUMBAR PARASPINAL MUSCLES AND IMPROVE MOBILITY. THEY WERE ADVISED THAT THIS WILL IMPROVE WEIGHT LOSS AND ALSO DEPRESSION/FIBROMYALGIA SYMPTOMS. ADVISED TO WALK 10 MINUTES EVERY OTHER DAY ON A FLAT SURFACE. EMPHASIZED THE IMPORTANCE OF DOING THIS CONSISTANTLY AND NOT SPORATICALLY TO AVOID INJURY. STRONG ADVISED NOT TO DO MORE THAN 10 MINUTES EVERY OTHER DAY FOR THE FIRST 4 WEEKS. PROCEDURE CODES FA211 ESTABILISHED PATIENT [facility] CHARGE DISPOSITION & COMMUNICATION FOLLOW UP POST (REASON: LEFT SIJ) ELECTRONICALLY SIGNED BY HARDIK COLUNGA ON 09/20/2018 AT 12:58 PM EDT DISCLAIMER : THIS IS A VISIT SUMMARY EXTRACTED FROM THE [employer] CHART. IT IS NOT A COPY OF THE [employer] PROGRESS NOTE. ENE
== END ==
LOC: M PAIN 11:15
PROVIDERS: ATTEND Nurse Practitioner Family
DX: M96.1 Postlaminectomy syndrome, not elsewhere classified (principal); M48.07 Spinal stenosis, lumbosacral region; I10 Essential (primary) hypertension; Z79.891 Long term (current) use of opiate analgesic; Z79.899 Other long term (current) drug therapy; Z88.0 Allergy status to penicillin

== ENCOUNTER → 2018-10-20 | Outpatient (CLI) | payer MEDICARE ==
[~2018-10-20] MED LIST changes: +BUPIVACAINE HCL 0.25% 30 ML VIAL As Ordered ONE; +ISOVUE-M 200 41% 20ML VIAL (Q9966) As Ordered ONE; +LIDOCAINE 1% SDV INJ 30 ML VIAL As Ordered ONE; +TRIAMCINOLONE ACETONIDE SUSP 40 MG/ML VIAL (J3301) As Ordered ONE; +diazePAM 5 MG TAB As Ordered ONE; +oxyCODONE 5MG TAB As Ordered ONE
--- NOTE | 2018-10-20 14:24 | REP ---
LEFT SI JOINT: Three views. HISTORY: Left SI joint injection for pain. 26 seconds of fluoroscopy time is reported. FINDINGS: A sequence of three last image hold fluoroscopically obtained spot radiographs of the left SI joint document needle position and contrast injection associated with left SI joint injection procedure. Electronically Signed by Kamran Kirk MD 10/20/2018 07:23 P
--- NOTE | 2018-10-30 23:36 | ECWPNPC ---
PATIENT NAME: KIMBERLEY VALENCIA : 1965 GENDER: MALE VISIT DATE: 10/20/2018 DISCHARGE DATE: 10/20/18 1115 VISIT LOCKED DATE TIME: PHYSICIAN: OMA POWELL MD PHYSICIAN PAGER NO: [id number] RESOURCE: OMA POWELL MD REASON FOR APPOINTMENT 1. LEFT SIJ HISTORY OF PRESENT ILLNESS HISTORY OF PRESENT ILLNESS: PAIN THE PATIENT DESCRIBES THE PAIN... FALL RISK SCREENING: SCREENING :NO FALLS REPORTED IN THE LAST YEAR CURRENT MEDICATIONS TAKING ARTIFICIAL TEARS 0.4 % SOLUTION 1 DROP INTO AFFECTED EYE NEEDED OPHTHALMIC ONCE A DAY, NOTES: 10/20/18 0830 TAKING NEXIUM 24HR 20 MG CAPSULE DELAYED RELEASE 1 CAPSULE ORALLY ONCE A DAY, NOTES: 10/20/18 050 TAKING TESTOSTERONE CYPIONATE 200 MG/ML OIL 0.8 ML INTRAMUSCULAR(DR KIERRA ELMORE) EVERY 10 DAYS, NOTES: 10/13/18 TAKING RESTASIS 0.05 % EMULSION 1 DROP INTO AFFECTED EYE OPHTHALMIC TWICE A DAY, NOTES: 10/20/18 0830 TAKING AMLODIPINE BESYLATE 10 MG TABLET 1 TABLET ORALLY ONCE A DAY, NOTES: 10/20/18 050 TAKING VITAMIN D3 2000 UNIT CAPSULE 1 CAPSULE ORALLY ONCE A DAY, NOTES: 10/20/18 050 TAKING OXYCODONE-ACETAMINOPHEN 10-325 MG TABLET 1 TABLET NEEDED ORALLY EVERY 6 HRS, NOTES: 10/19/18 2100 TAKING LISINOPRIL-HYDROCHLOROTHIAZIDE 20-25 MG TABLET 1 TABLET ORALLY ONCE A DAY, NOTES: 10/20/18 050 TAKING FERROUS SULFATE 325 (65 FE) MG TABLET 1 TABLET ORALLY ONCE A DAY, NOTES: 10/20/18 050 NOT-TAKING LISINOPRIL 10 MG TABLET 1 TABLET ORALLY ONCE A DAY NOT-TAKING SOMA 350 MG TABLET 1 TABLET NEEDED ORALLY FOR SPASMS AND PAIN EVERY 8 HOURS NEEDED MDD3 NOT-TAKING CLONAZEPAM 0.5 MG TABLET DISPERSIBLE 1-2 TABLET ON THE TONGUE AND ALLOW TO DISSOLVE ORALLY AT BEDTIME NEEDED FOR INSOMNIA AND RESTLESS LEGS MDD:2 NOT-TAKING TIZANIDINE HCL 4 MG TABLET 1 TABLET NEEDED ORALLY THREE TIMES A DAY, NOTES: NONE TAKEN RECENTLY NOT-TAKING VITAMIN D 2000 UNIT CAPSULE 1 CAPSULE ORALLY DAILY NOT-TAKING MECLIZINE HCL 25 MG TABLET CHEWABLE 1 TABLET NEEDED ORALLY ONCE A DAY NOT-TAKING FEXOFENADINE HCL 180 MG TABLET 1 TABLET NEEDED ORALLY ONCE A DAY NOT-TAKING PERCOCET 10-325 MG TABLET 1 TABLET NEEDED ORALLY EVERY 6 HRS MDD4 NOT-TAKING CYMBALTA 30 MG CAPSULE DELAYED RELEASE PARTICLES 1 CAPSULE ORALLY ONCE A DAY NOT-TAKING TOPIRAMATE 25 MG TABLET 1 TABLET ORALLY TWICE A DAY DISCONTINUED LISINOPRIL-HYDROCHLOROTHIAZIDE 20-25 MG TABLET 1 TABLET ORALLY ONCE A DAY, NOTES: DUPLICATE MEDICATION LIST REVIEWED AND RECONCILED WITH THE PATIENT PAST MEDICAL HISTORY HYPERTENSION BARRETS ESOPHAGUS SLEEP APNEA [place] WITH CPAP (PULM ASSOC) BACK PAIN - ([facility]) HYPOTESTOSTERONEMIA (Jermaine ELMORE) MAJOR DEPRESSION, SINGLE EPISODE (MANISH) ANXIETY OA (MULTIPLE LOCATIONS) ASCVD 10-YEAR RISK IS 5.3% IN 08/2016 OSCAR'S ESOPHAGUS: GASTRO IN [place] IBS ALLERGIES PENICILLIN (FOR ALLERGIES USE ONLY): FEET SWELLS - ALLERGY SURGICAL HISTORY TONSILLECTOMY CHILD BILATERAL CARPAL TUNNEL (FISH) 2009 EGD/COLONOSCOPY (KATHRYN IN [place]) 11/2011 LEFT ELBOW CUBITAL TUNNEL TRANSLATION (FISH) 2012 RIGHT CARPAL TUNNEL 07/05/13 COLO/EGD- KATHRYN-SYR- MILD ESOPHAGITIS 05/20 BACK SURGERY- DR SALGADO SOS 01/2017 FAMILY HISTORY FATHER: 70 YRS, PROSTATE CA AT AGE 65, DIAGNOSED WITH HYPERTENSION MOTHER: ALIVE 76 YRS, DIABETES SIBLINGS: BROTHER CROHN'S SISTER THYROID DISEASE DAUGHTER(S): ALIVE, DAUGHTER MVA 1DAUGHTER(S) . SOCIAL HISTORY GENERAL: TOBACCO USE ARE YOU A:NONSMOKER HIV / HEP-C SCREENING HIV TEST OFFERED TO PATIENT:YES DATE OFFERED:01/28/2017 TEST ACCEPTED:NO REASON:PATIENT DECLINED HEP-C TEST OFFERED TO PATIENT:NO OTHERS AT HOME: SPOUSE. EDUCATION LEVEL OF EDUCATION:HIGH SCHOOL DIET: REGULAR. LANGUAGE LANGUAGES SPOKEN:MACEDONIAN DOMESTIC VIOLENCE DO YOU FEEL SAFE IN YOUR ENVIRONMENT?YES BMI CARE GOAL FOLLOW-UP ABOVE NORMAL BMI FOLLOW-UPLIFESTYLE EDUCATION REGARDING DIET RECREATIONAL DRUG USE DRUG USE?NO PATIENT DENIES ABUSE OR MISSUSED OF ANY MEDICATION. PATIENT DENIES USE OF ANY ILLEGAL SUBSTANCE INCLUDING MARIJUANA OR COCAINE. EXERCISE: NO REGULAR EXERCISE. 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 CLINIC PFS, CLERGY, PUBLIC HEALTH REFERRALS PFS REFERRAL NEEDED?NO CLERGY REFERRAL NEEDED?NO PUBLIC HEALTH REFERRAL NEEDED?NO WAS THE PROVIDER NOTIFIED OF ANY PERTINENT INFO?NO HAS THE PATIENT BEEN EDUCATED REGARDING HIS/HER PLAN OF CARE?YES HAS THE PATIENT BEEN EDUCATED REGARDING PAIN, THE RISK FOR PAIN, THE IMPORTANCE OF EFFECTIVE PAIN MANAGEMENT, AND THE PAIN ASSESSMENT PROCESS?YES LATEX QUESTIONNAIRE LATEX ALLERGY : HAVE YOU EVER DEVELOPED ANY TYPE OF REACTION AFTER HANDLING LATEX PRODUCTS SUCH RUBBER GLOVES, CONDOMS, DIAPHRAGMS, BALLOONS, SOCKS, OR UNDERWEAR?NO LATEX ALLERGY : HAVE YOU EVER DEVELOPED ANY TYPE OF REACTION DURING OR AFTER DENTAL APPOINTMENT, VAGINAL/RECTAL EXAMINATION, SURGICAL PROCEDURE, OR ANY OTHER EXPOSURE?NO LATEX RISK : HAVE YOU EVER HAD ANY DIFFICULTY BREATHING OR HIVES AFTER EATING OR HANDLING ANY FRUITS, OR VEGETABLES; SUCH KIWI, BANANAS, STONE FRUITS, OR CHESTNUTSNO LATEX RISK : DO YOU HAVE A PREVIOUS PERSONAL HISTORY OF MORE THAN NINE SURGERIES, SPINA BIFIDA, OR REPEATED CATHERIZATIONS? NO LATEX RISK : ARE YOU FREQUENTLY EXPOSED TO LATEX PRODUCTS IN YOUR OCCUPATION?NO DATE ASKED : 07/06/2018 CAFFEINE CAFFEINE USE?YES 1 COFFEE DAILY ADVANCE DIRECTIVE ADVANCE DIRECTIVE DISCUSSED WITH PATIENT:YES HCP-LAUREL VALENCIA BUDDHISM [id number] ANGLICAN MARITAL STATUS: . ALCOHOL SCREENING DID YOU HAVE A DRINK CONTAINING ALCOHOL IN THE PAST YEAR?NO POINTS0 INTERPRETATIONNEGATIVE OCCUPATION: DISABLED. SEXUAL HX HAD SEX IN THE LAST 12 MONTHS (VAGINAL, ORAL, OR ANAL)?YES WITHWOMEN ONLY USE PROTECTION?NO HAVE YOU EVER HAD AN STD?NO 08/25/17 0945 REVIEWED WITH PT. ADREVIEWED WITH PATIENT 05/03/18 1540 JSREVIEWED WITH PT 05/19/18 1120 BVREVIEWED WITH PT 06/03/18 1316 BVREVIEWED WITH PATIENT 07/06/18 1039 JSREVIEWED WITH PATIENT 10/20/18 0930 LAS. HOSPITALIZATION/MAJOR DIAGNOSTIC PROCEDURE CHEST PAIN/DYSPNEA, R/O CT ([place]) 10/15 BACK SURGERY 01/2017 NECK AND LEFT SIDED PAIN AND WEAKNESS 08/2018 REVIEW OF SYSTEMS REVIEWED BY: PROVIDER: . CONSTITUTIONAL: ANY CHANGE IN YOUR MEDICAL CONDITION? NO . CHILLS NO . FEVER NO . INFECTION: DO YOU HAVE NEW INFECTIONS? NO . DO YOU HAVE HISTORY OF MRSA? NO . MUSCULOSKELETAL: ANY NEW PATTERNS OF PAIN OR NUMBNESS? NO . GASTROENTEROLOGY: ANY NEW CHANGE IN BOWEL CONTROL? NO . GENITOURINARY: ANY NEW CHANGE IN BLADDER CONTROL? NO . IS THERE A CHANCE YOU COULD BE ? NO . HEMATOLOGY/LYMPH: DO YOU TAKE ANY BLOOD THINNERS? (FOR EXAMPLE- COUMADIN, PLAVIX, AGGRENOX, PLATEL, PRADAXA, OR XARELTO) NO . WHEN WAS YOUR LAST DOSE? DATE: TIME: . NEUROLOGY: HAVE YOU FALLEN IN THE PAST 12 MONTHS? NO . ANY NEW EXTREMITY NUMBNESS OR WEAKNESS? NO . CARDIOLOGY: DO YOU HAVE A PACEMAKER OR DEFIBRILLATOR? NO . RESPIRATORY: HAVE YOU BEEN SICK IN THE PAST WEEK? NO . FEVER NO . FLU LIKE SYMPTOMS? NO . COUGH NO . INTEGUMENTARY: DO YOU HAVE ANY RASHES OR OPEN SORES? NO . ALLERGIC/IMMUNO: ARE YOU ALLERGIC TO IV DYE? NO . ANY NEW ALLERGIES? NO . PSYCHIATRIC: DO YOU HAVE THOUGHTS OF HURTING YOURSELF OR SOMEONE ELSE? NO . ARE YOU ABUSED, NEGLECTED, OR IN AN UNSAFE ENVIRONMENT? NO . ENDOCRINOLOGY: ARE YOU DIABETIC? NO . OTHER: DO YOU NEED ANY PRESCRIPTIONS? NO . IF YES, PLEASE LIST: ____ . ANY NEW PROBLEMS WITH YOUR MEDICATIONS? NO . WHEN DID YOU LAST EAT? ____10/19/18 1900 . WHEN DID YOU LAST DRINK? ____10/20/18 0500 . WHAT DID YOU LAST DRINK? ____WATER . NAME OF PERSON DRIVING YOU HOME? ____WIFE LAUREL . DO YOU HAVE ANY OTHER QUESTIONS OR CONCERNS NO . VITAL SIGNS WT 223 LBS, HT 68 IN, BMI 33.90 INDEX, BP 142/92 MM HG, HR 84 /MIN, RR 18 /MIN, TEMP 97.9 F, OXYGEN SAT % 96%, SAFE IN ENV? (Y/N) YES, NA INITIALS AW 0912, REVIEWED BY: ASSESSMENTS SACROILIITIS, NOT ELSEWHERE CLASSIFIED - M46.1 (PRIMARY) PROCEDURES PN SI PRE PROCEDURE DIAGNOSIS SACROILIITIS, SACROILIAC JOINT DYSFUNCTION POST PROCEDURE DIAGNOSIS SACROILIITIS, SACROILIAC JOINT DYSFUNCTION PROCEDURE LEFT SACROILIAC JOINT BLOCK SURGEON DR. OMA POWELL SNOW REMOVAL/PLOWING NONE ANESTHESIA LOCAL PRE PROCEDURE NOTE PATIENT WITH HISTORY OF CHRONIC LOW BACK PAIN. I EVALUATED THE PATIENT AND REVIEWED THE CHART. I WENT OVER THE RISKS, ALTERNATIVES, AND BENEFITS ASSOCIATED WITH THIS PROCEDURE. THE PATIENT WOULD LIKE TO PROCEED AND GAVE CONSENT TO PERFORM THE PROCEDURE. THE PATIENT DENIES UNEXPLAINABLE WEIGHT LOSS, FEVER, CHILLS, OR NEW CHANGES IN URINARY OR BOWEL CONTROL DESCRIPTION OF PROCEDURE THE PATIENT WAS BROUGHT TO THE PROCEDURE ROOM AND PLACED IN THE PRONE POSITION. THE LUMBOSACRAL AREA WAS CLEANED WITH CHLORAPREP SOLUTION AND DRAPED ASEPTICALLY. THE PROCEDURE WAS DONE UNDER STERILE CONDITIONS. I CHECKED LATERALITY AND THE LEVEL WHERE THE PROCEDURE WAS GOING TO BE PERFORMED WITH THE PATIENT AND THE SUPPORTING STAFF AT THE MOMENT OF THE TIME OUT IN THE PROCEDURE ROOM. UNDER FLUOROSCOPIC GUIDANCE, TARGET POINT WAS SELECTED AT THE LOWER BORDER OF THE LEFT SACROILIAC JOINT. TARGET POINT WAS SELECTED AFTER MEDIAL ROTATION AND TILT OF THE MAGNIFIER OF THE C-ARM. LIDOCAINE WAS USED TO NUMB THE SKIN AND SUBCUTANEOUS TISSUE BELOW IT. A SPINAL NEEDLE, 22-GAUGE, WAS ADVANCED UNDER FLUOROSCOPIC GUIDANCE AND FOLLOWING PATIENT FEEDBACK UNTIL THE TARGET AREA WAS TOUCHED. THE POSITION OF THE NEEDLE WAS VERIFIED WITH AP AND LATERAL VIEWS. AFTER PROPER POSITION OF THE NEEDLE WAS ACHIEVED, ISOVUE M-200 DYE WAS INJECTED SHOWING SPREAD OF THE DYE. THEN, A SOLUTION OF 40 MG OF KENALOG WAS INJECTED IN LEFT JOINT WITH 3 ML OF BUPIVACAINE 0.125%. THERE WAS NO EVIDENCE OF BLOOD, PARESTHESIA OR CEREBROSPINAL FLUID DURING THE PROCEDURE. THE PATIENT WAS SENT TO THE RECOVERY ROOM. THE PATIENT WAS MOVING THE EXTREMITIES AND DOING WELL. THERE WAS NO COMPLICATION DURING THE PROCEDURE. FLUOROSCOPY TIME WAS 26 SECONDS POST PROCEDURE NOTE THE PATIENT WILL BE SEEN IN A FOLLOW UP IN THE NEXT FEW WEEKS. INSTRUCTIONS WERE GIVEN, QUESTIONS WERE ANSWERED, AND THE PATIENT EXPRESSED UNDERSTANDING AND AGREED WITH THE PLAN. I, RENALDO CORTES, DOCUMENTED THE ABOVE INFORMATION ACTING A SCRIBE FOR DR. POWELL. I HAVE REVIEWED THE ABOVE DOCUMENT, WRITTEN BY RENALDO LOPEZ AND I VERIFY THAT IT IS ACCURATE. DI[facility]STIC IM[facility] FLUORO GUIDANCE (PAIN)[id number] PROCEDURE CODES 6045F RADXPS IN END [id number] [id number] INJECT SACROILIAC JOINT, MODIFIERS: LT DISPOSITION & COMMUNICATION FOLLOW UP 3 WEEKS ELECTRONICALLY SIGNED BY OMA POWELL MD, MD ON 10/30/2018 AT 01:20 PM EDT DISCLAIMER : THIS IS A VISIT SUMMARY EXTRACTED FROM THE [email or web address] CHART. IT IS NOT A COPY OF THE [email or web address] PROGRESS NOTE. ENE
== END ==
LOC: M PAIN 09:15
PROVIDERS: ATTEND Anesthesiology
DX: M46.1 Sacroiliitis, not elsewhere classified (principal); I10 Essential (primary) hypertension; K22.70 Barrett's esophagus without dysplasia; G47.30 Sleep apnea, unspecified; F32.9 Major depressive disorder, single episode, unspecified; F41.9 Anxiety disorder, unspecified; K58.9 Irritable bowel syndrome, unspecified; Z79.891 Long term (current) use of opiate analgesic; Z79.899 Other long term (current) drug therapy; Z88.0 Allergy status to penicillin
CPT/HCPCS: G0260; J3301; Q9966

== ENCOUNTER → 2018-12-06 | Outpatient (CLI) | payer MEDICARE ==
[~2018-12-06] MED LIST changes: -BUPIVACAINE HCL 0.25% 30 ML VIAL As Ordered ONE; -ISOVUE-M 200 41% 20ML VIAL (Q9966) As Ordered ONE; -LIDOCAINE 1% SDV INJ 30 ML VIAL As Ordered ONE; +LISI20TA20 PO; -LISI20TA3 PO; -MORP-38 PO; +MORP-69 PO; -TRIAMCINOLONE ACETONIDE SUSP 40 MG/ML VIAL (J3301) As Ordered ONE; -diazePAM 5 MG TAB As Ordered ONE; -oxyCODONE 5MG TAB As Ordered ONE
--- NOTE | 2018-12-22 02:08 | ECWPNPC ---
PATIENT NAME: KIMBERLEY VALENCIA : 1965 GENDER: MALE VISIT DATE: 12/06/2018 DISCHARGE DATE: 12/06/18 1004 VISIT LOCKED DATE TIME: PHYSICIAN: WILLIAM FREEMAN PHYSICIAN PAGER NO: TEXT LD [id number] RESOURCE: WILLIAM FREEMAN REASON FOR APPOINTMENT 1. POST SIJ HISTORY OF PRESENT ILLNESS HISTORY OF PRESENT ILLNESS: HERE FOR POST PROCEDURE F/U.HAD LEFT SIJ ON 10/20/18.HE CONTINUES TO BENEFIT FROM THAT TODAY.CHIEF AREA OF PAIN IS BILAT. LEGS. LOW BACK AND LEFT LEG.RATING LBP 5/10 VAS. PAIN THE PATIENT DESCRIBES THE PAIN... THE PATIENT DESCRIBES THE PAIN... FALL RISK SCREENING: SCREENING :NO FALLS REPORTED IN THE LAST YEAR CURRENT MEDICATIONS TAKING ARTIFICIAL TEARS 0.4 % SOLUTION 1 DROP INTO AFFECTED EYE NEEDED OPHTHALMIC ONCE A DAY TAKING NEXIUM 24HR 20 MG CAPSULE DELAYED RELEASE 1 CAPSULE ORALLY ONCE A DAY TAKING TESTOSTERONE CYPIONATE 200 MG/ML OIL 0.8 ML INTRAMUSCULAR(DR IKERRA ELMORE) EVERY 10 DAYS TAKING RESTASIS 0.05 % EMULSION 1 DROP INTO AFFECTED EYE OPHTHALMIC TWICE A DAY TAKING AMLODIPINE BESYLATE 10 MG TABLET 1 TABLET ORALLY ONCE A DAY TAKING VITAMIN D3 2000 UNIT CAPSULE 1 CAPSULE ORALLY ONCE A DAY TAKING OXYCODONE-ACETAMINOPHEN 10-325 MG TABLET 1 TABLET NEEDED ORALLY EVERY 6 HRS TAKING LISINOPRIL-HYDROCHLOROTHIAZIDE 20-25 MG TABLET 1 TABLET ORALLY ONCE A DAY TAKING FERROUS SULFATE 325 (65 FE) MG TABLET 1 TABLET ORALLY ONCE A DAY UNKNOWN LISINOPRIL 10 MG TABLET 1 TABLET ORALLY ONCE A DAY UNKNOWN SOMA 350 MG TABLET 1 TABLET NEEDED ORALLY FOR SPASMS AND PAIN EVERY 8 HOURS NEEDED MDD3 UNKNOWN CLONAZEPAM 0.5 MG TABLET DISPERSIBLE 1-2 TABLET ON THE TONGUE AND ALLOW TO DISSOLVE ORALLY AT BEDTIME NEEDED FOR INSOMNIA AND RESTLESS LEGS MDD:2 UNKNOWN TIZANIDINE HCL 4 MG TABLET 1 TABLET NEEDED ORALLY THREE TIMES A DAY, NOTES: NONE TAKEN RECENTLY UNKNOWN VITAMIN D 2000 UNIT CAPSULE 1 CAPSULE ORALLY DAILY UNKNOWN MECLIZINE HCL 25 MG TABLET CHEWABLE 1 TABLET NEEDED ORALLY ONCE A DAY UNKNOWN FEXOFENADINE HCL 180 MG TABLET 1 TABLET NEEDED ORALLY ONCE A DAY UNKNOWN PERCOCET 10-325 MG TABLET 1 TABLET NEEDED ORALLY EVERY 6 HRS MDD4 UNKNOWN CYMBALTA 30 MG CAPSULE DELAYED RELEASE PARTICLES 1 CAPSULE ORALLY ONCE A DAY UNKNOWN TOPIRAMATE 25 MG TABLET 1 TABLET ORALLY TWICE A DAY MEDICATION LIST REVIEWED AND RECONCILED WITH THE PATIENT PAST MEDICAL HISTORY HYPERTENSION BARRETS ESOPHAGUS SLEEP APNEA [place] WITH CPAP (PULM ASSOC) BACK PAIN - ([facility]) HYPOTESTOSTERONEMIA (C. RAMÍREZ) MAJOR DEPRESSION, SINGLE EPISODE (MANISH) ANXIETY OA (MULTIPLE LOCATIONS) ASCVD 10-YEAR RISK IS 5.3% IN 08/2016 OSCAR'S ESOPHAGUS: GASTRO IN [place] IBS ALLERGIES PENICILLIN (FOR ALLERGIES USE ONLY): FEET SWELLS - ALLERGY SURGICAL HISTORY TONSILLECTOMY CHILD BILATERAL CARPAL TUNNEL (FISH) 2009 EGD/COLONOSCOPY (KATHRYN IN [place]) 11/2011 LEFT ELBOW CUBITAL TUNNEL TRANSLATION (FISH) 2012 RIGHT CARPAL TUNNEL 07/05/13 COLO/EGD- KATHRYN-SYR- MILD ESOPHAGITIS 05/20 BACK SURGERY- DR DAMIAN FELIX 01/2017 HERNIA REPAIR 2018 FAMILY HISTORY FATHER: 70 YRS, PROSTATE CA AT AGE 65, DIAGNOSED WITH HYPERTENSION MOTHER: 76 YRS, DIABETES SIBLINGS: BROTHER CROHN'S SISTER THYROID DISEASE DAUGHTER(S): ALIVE, DAUGHTER MVA 1DAUGHTER(S) . LIVER FAILURE. SOCIAL HISTORY GENERAL: TOBACCO USE ARE YOU A:NONSMOKER HIV / HEP-C SCREENING HIV TEST OFFERED TO PATIENT:YES DATE OFFERED:01/28/2017 TEST ACCEPTED:NO HEP-C TEST OFFERED TO PATIENT:NO REASON:PATIENT DECLINED OTHERS AT HOME: SPOUSE. EDUCATION LEVEL OF EDUCATION:HIGH SCHOOL DIET: REGULAR. LANGUAGE LANGUAGES SPOKEN:[place] CITIZEN DOMESTIC VIOLENCE DO YOU FEEL SAFE IN YOUR ENVIRONMENT?YES BMI CARE GOAL FOLLOW-UP ABOVE NORMAL BMI FOLLOW-UPLIFESTYLE EDUCATION REGARDING DIET RECREATIONAL DRUG USE DRUG USE?NO PATIENT DENIES ABUSE OR MISSUSED OF ANY MEDICATION. PATIENT DENIES USE OF ANY ILLEGAL SUBSTANCE INCLUDING MARIJUANA OR COCAINE. EXERCISE: NO REGULAR EXERCISE. LEARNING BARRIERS / SPECIAL NEEDS CHANGE FROM LAST VISIT?NO BARRIERS TO LEARNING?NO HEARING IMPAIRED?YES VISION IMPAIRED?NO COGNITIVELY IMPAIRED?NO :HEARING AIDES C/O INCREASED HEARING LOSS READINESS TO LEARN?YES LEARNING PREFERENCES?NO LEARNING CAPABILITIES PRESENT?YES EMOTIONAL BARRIERS?NO SPECIAL DEVICES?NO YACHT CAPTAIN NEEDED?NO PAIN CLINIC PFS, CLERGY, PUBLIC HEALTH REFERRALS PFS REFERRAL NEEDED?NO CLERGY REFERRAL NEEDED?NO PUBLIC HEALTH REFERRAL NEEDED?NO WAS THE PROVIDER NOTIFIED OF ANY PERTINENT INFO?NO HAS THE PATIENT BEEN EDUCATED REGARDING HIS/HER PLAN OF CARE?YES HAS THE PATIENT BEEN EDUCATED REGARDING PAIN, THE RISK FOR PAIN, THE IMPORTANCE OF EFFECTIVE PAIN MANAGEMENT, AND THE PAIN ASSESSMENT PROCESS?YES LATEX QUESTIONNAIRE LATEX ALLERGY : HAVE YOU EVER DEVELOPED ANY TYPE OF REACTION AFTER HANDLING LATEX PRODUCTS SUCH RUBBER GLOVES, CONDOMS, DIAPHRAGMS, BALLOONS, SOCKS, OR UNDERWEAR?NO LATEX ALLERGY : HAVE YOU EVER DEVELOPED ANY TYPE OF REACTION DURING OR AFTER DENTAL APPOINTMENT, VAGINAL/RECTAL EXAMINATION, SURGICAL PROCEDURE, OR ANY OTHER EXPOSURE?NO DATE ASKED : 07/06/2018 LATEX RISK : HAVE YOU EVER HAD ANY DIFFICULTY BREATHING OR HIVES AFTER EATING OR HANDLING ANY FRUITS, OR VEGETABLES; SUCH KIWI, BANANAS, STONE FRUITS, OR CHESTNUTSNO LATEX RISK : DO YOU HAVE A PREVIOUS PERSONAL HISTORY OF MORE THAN NINE SURGERIES, SPINA BIFIDA, OR REPEATED CATHERIZATIONS? NO LATEX RISK : ARE YOU FREQUENTLY EXPOSED TO LATEX PRODUCTS IN YOUR OCCUPATION?NO CAFFEINE CAFFEINE USE?YES 1 COFFEE DAILY ADVANCE DIRECTIVE ADVANCE DIRECTIVE DISCUSSED WITH PATIENT:YES HCP-LAUREL VALENCIA ROMAN [facility]ATH[employer] [id number] YAZDANISM MARITAL STATUS: . ALCOHOL SCREENING DID YOU HAVE A DRINK CONTAINING ALCOHOL IN THE PAST YEAR?NO POINTS0 INTERPRETATIONNEGATIVE OCCUPATION: DISABLED. SEXUAL HX HAD SEX IN THE LAST 12 MONTHS (VAGINAL, ORAL, OR ANAL)?YES WITHWOMEN ONLY USE PROTECTION?NO HAVE YOU EVER HAD AN STD?NO 08/25/17 0945 REVIEWED WITH PT. ADREVIEWED WITH PATIENT 05/03/18 1540 JSREVIEWED WITH PT 05/19/18 1120 BVREVIEWED WITH PT 06/03/18 1316 BVREVIEWED WITH PATIENT 07/06/18 1039 JSREVIEWED WITH PATIENT 10/20/18 0930 LAS. HOSPITALIZATION/MAJOR DIAGNOSTIC PROCEDURE CHEST PAIN/DYSPNEA, R/O [place] ([place]) 10/15 BACK SURGERY 01/2017 NECK AND LEFT SIDED PAIN AND WEAKNESS 08/2018 REVIEW OF SYSTEMS REVIEWED BY: PROVIDER: WILLIAM DYE . CONSTITUTIONAL: ANY CHANGE IN YOUR MEDICAL CONDITION? NO . CHILLS NO . FEVER NO . INFECTION: DO YOU HAVE NEW INFECTIONS? NO . DO YOU HAVE HISTORY OF MRSA? NO . MUSCULOSKELETAL: ANY NEW PATTERNS OF PAIN OR NUMBNESS? NO . GASTROENTEROLOGY: ANY NEW CHANGE IN BOWEL CONTROL? NO . GENITOURINARY: ANY NEW CHANGE IN BLADDER CONTROL? NO . IS THERE A CHANCE YOU COULD BE ? NO . HEMATOLOGY/LYMPH: DO YOU TAKE ANY BLOOD THINNERS? (FOR EXAMPLE- COUMADIN, PLAVIX, AGGRENOX, PLATEL, PRADAXA, OR XARELTO) NO . WHEN WAS YOUR LAST DOSE? DATE: TIME: . NEUROLOGY: HAVE YOU FALLEN IN THE PAST 12 MONTHS? NO . ANY NEW EXTREMITY NUMBNESS OR WEAKNESS? NO . CARDIOLOGY: DO YOU HAVE A PACEMAKER OR DEFIBRILLATOR? NO . RESPIRATORY: HAVE YOU BEEN SICK IN THE PAST WEEK? NO . FEVER NO . FLU LIKE SYMPTOMS? NO . COUGH NO . INTEGUMENTARY: DO YOU HAVE ANY RASHES OR OPEN SORES? NO . ALLERGIC/IMMUNO: ARE YOU ALLERGIC TO IV DYE? NO . ANY NEW ALLERGIES? NO . PSYCHIATRIC: DO YOU HAVE THOUGHTS OF HURTING YOURSELF OR SOMEONE ELSE? NO . ARE YOU ABUSED, NEGLECTED, OR IN AN UNSAFE ENVIRONMENT? NO . ENDOCRINOLOGY: ARE YOU DIABETIC? NO . OTHER: DO YOU NEED ANY PRESCRIPTIONS? NO . IF YES, PLEASE LIST: ____ . ANY NEW PROBLEMS WITH YOUR MEDICATIONS? NO . WHEN DID YOU LAST EAT? ____ . WHEN DID YOU LAST DRINK? ____ . WHAT DID YOU LAST DRINK? ____ . NAME OF PERSON DRIVING YOU HOME? ____ . DO YOU HAVE ANY OTHER QUESTIONS OR CONCERNS NO . VITAL SIGNS WT 227.6 LBS, HT 68 IN, BMI 34.60 INDEX, BP 131/81 MM HG, HR 73 /MIN, RR 18 /MIN, TEMP 97.6 F, OXYGEN SAT % 97%, NA INITIALS SC 09:33, REVIEWED BY: KG. EXAMINATION GENERAL EXAMINATION: GENERAL ALERT,NO DISTRESS . PSYCH AFFECT NORMAL . LUNGS: LUNG SOUNDS ARE CLEAR . HEART: HEART RATE REGULAR . MUSCULOSKELETAL: MST 5/5 BILAT. LOWER EXTREMITIES . DIAGNOSTIC TESTS REVIEWEDMRI L/S [id number] . ASSESSMENTS LUMBAR POST-LAMINECTOMY SYNDROME - M96.1 (PRIMARY) LUMBOSACRAL SPINAL STENOSIS - M48.07 TREATMENT LUMBAR POST-LAMINECTOMY SYNDROME NOTES: CONTINUE HOME EXCERSISE AND STRETCHING. PROCEDURE CODES FA211 ESTABILISHED PATIENT [facility] FACILITY CHARGE DISPOSITION & COMMUNICATION FOLLOW UP 6-8WKS (REASON: LBP/NECK PAIN) ELECTRONICALLY SIGNED BY HARDIK COLUNGA ON 12/20/2018 AT 01:19 PM EDT DISCLAIMER : THIS IS A VISIT SUMMARY EXTRACTED FROM THE [employer] CHART. IT IS NOT A COPY OF THE [employer] PROGRESS NOTE. ENE
== END ==
LOC: M PAIN 09:15
PROVIDERS: ATTEND Nurse Practitioner Family
DX: M96.1 Postlaminectomy syndrome, not elsewhere classified (principal); M48.07 Spinal stenosis, lumbosacral region; I10 Essential (primary) hypertension; G47.30 Sleep apnea, unspecified; Z86.59 Personal history of other mental and behavioral disorders; M19.90 Unspecified osteoarthritis, unspecified site; Z88.0 Allergy status to penicillin; Z79.899 Other long term (current) drug therapy

== ENCOUNTER → 2019-01-25 | Outpatient (CLI) | payer MEDICARE ==
--- NOTE | 2019-02-08 02:24 | ECWPNPC ---
PATIENT NAME: KIMBERLEY VALENCIA : 1965 GENDER: MALE VISIT DATE: 01/25/2019 DISCHARGE DATE: 01/25/19 1003 VISIT LOCKED DATE TIME: PHYSICIAN: WILLIAM FREEMAN PHYSICIAN PAGER NO: TEXT RW [phone] RESOURCE: WILLIAM FREEMAN REASON FOR APPOINTMENT 1. LBP/NECK PAIN HISTORY OF PRESENT ILLNESS HISTORY OF PRESENT ILLNESS: HERE FOR F/U OF CHRONIC NECK AND LBP.WORSE AREA OF PAIN IS NECK.HAS RESPONDED WELL TO JHON IN PAST LAST ONE DONE IN AUGUST.RATING NECK PAIN 2-6/10VAS.PAIN IS AGGREATED WITH ROJM NECK AND ARMS. PAIN THE PATIENT DESCRIBES THE PAIN... FALL RISK SCREENING: SCREENING :NO FALLS REPORTED IN THE LAST YEAR CURRENT MEDICATIONS TAKING ARTIFICIAL TEARS 0.4 % SOLUTION 1 DROP INTO AFFECTED EYE NEEDED OPHTHALMIC ONCE A DAY TAKING NEXIUM 24HR 20 MG CAPSULE DELAYED RELEASE 1 CAPSULE ORALLY ONCE A DAY TAKING TESTOSTERONE CYPIONATE 200 MG/ML OIL 0.8 ML INTRAMUSCULAR(DR KEIRRA ELMORE) EVERY 10 DAYS TAKING RESTASIS 0.05 % EMULSION 1 DROP INTO AFFECTED EYE OPHTHALMIC TWICE A DAY TAKING AMLODIPINE BESYLATE 10 MG TABLET 1 TABLET ORALLY ONCE A DAY TAKING VITAMIN D3 2000 UNIT CAPSULE 1 CAPSULE ORALLY ONCE A DAY TAKING OXYCODONE-ACETAMINOPHEN 10-325 MG TABLET 1 TABLET NEEDED ORALLY EVERY 6 HRS TAKING LISINOPRIL-HYDROCHLOROTHIAZIDE 20-25 MG TABLET 1 TABLET ORALLY ONCE A DAY TAKING FERROUS SULFATE 325 (65 FE) MG TABLET 1 TABLET ORALLY ONCE A DAY NOT-TAKING LISINOPRIL 10 MG TABLET 1 TABLET ORALLY ONCE A DAY NOT-TAKING SOMA 350 MG TABLET 1 TABLET NEEDED ORALLY FOR SPASMS AND PAIN EVERY 8 HOURS NEEDED MDD3 NOT-TAKING CLONAZEPAM 0.5 MG TABLET DISPERSIBLE 1-2 TABLET ON THE TONGUE AND ALLOW TO DISSOLVE ORALLY AT BEDTIME NEEDED FOR INSOMNIA AND RESTLESS LEGS MDD:2 NOT-TAKING TIZANIDINE HCL 4 MG TABLET 1 TABLET NEEDED ORALLY THREE TIMES A DAY, NOTES: NONE TAKEN RECENTLY NOT-TAKING VITAMIN D 2000 UNIT CAPSULE 1 CAPSULE ORALLY DAILY NOT-TAKING MECLIZINE HCL 25 MG TABLET CHEWABLE 1 TABLET NEEDED ORALLY ONCE A DAY NOT-TAKING FEXOFENADINE HCL 180 MG TABLET 1 TABLET NEEDED ORALLY ONCE A DAY NOT-TAKING PERCOCET 10-325 MG TABLET 1 TABLET NEEDED ORALLY EVERY 6 HRS MDD4 NOT-TAKING CYMBALTA 30 MG CAPSULE DELAYED RELEASE PARTICLES 1 CAPSULE ORALLY ONCE A DAY NOT-TAKING TOPIRAMATE 25 MG TABLET 1 TABLET ORALLY TWICE A DAY MEDICATION LIST REVIEWED AND RECONCILED WITH THE PATIENT PAST MEDICAL HISTORY HYPERTENSION BARRETS ESOPHAGUS SLEEP APNEA [place] WITH CPAP (PULM ASSOC) BACK PAIN - ([facility]) HYPOTESTOSTERONEMIA (C. FISH) MAJOR DEPRESSION, SINGLE EPISODE (MANISH) ANXIETY OA (MULTIPLE LOCATIONS) ASCVD 10-YEAR RISK IS 5.3% IN 08/2016 OSCAR'S ESOPHAGUS: GASTRO IN [place] IBS ALLERGIES PENICILLIN (FOR ALLERGIES USE ONLY): FEET SWELLS - ALLERGY SURGICAL HISTORY TONSILLECTOMY CHILD BILATERAL CARPAL TUNNEL (FISH) 2009 EGD/COLONOSCOPY (KATHRYN IN [place]) 11/2011 LEFT ELBOW CUBITAL TUNNEL TRANSLATION (FISH) 2012 RIGHT CARPAL TUNNEL 07/05/13 COLO/EGD- KATHRYN-[place]- MILD ESOPHAGITIS 05/20 BACK SURGERY- DR DAMIAN FELIX 01/2017 HERNIA REPAIR 2018 FAMILY HISTORY FATHER: 70 YRS, PROSTATE CA AT AGE 65, DIAGNOSED WITH HYPERTENSION MOTHER: 76 YRS, DIABETES SIBLINGS: BROTHER CROHN'S SISTER THYROID DISEASE DAUGHTER(S): ALIVE, DAUGHTER MVA 1DAUGHTER(S) . LIVER FAILURE. SOCIAL HISTORY GENERAL: TOBACCO USE ARE YOU A:NONSMOKER HIV / HEP-C SCREENING HIV TEST OFFERED TO PATIENT:YES DATE OFFERED:01/28/2017 TEST ACCEPTED:NO HEP-C TEST OFFERED TO PATIENT:NO REASON:PATIENT DECLINED OTHERS AT HOME: SPOUSE. EDUCATION LEVEL OF EDUCATION:HIGH SCHOOL DIET: REGULAR. LANGUAGE LANGUAGES SPOKEN:WELSH DOMESTIC VIOLENCE DO YOU FEEL SAFE IN YOUR ENVIRONMENT?YES BMI CARE GOAL FOLLOW-UP ABOVE NORMAL BMI FOLLOW-UPLIFEYLE EDUCATION REGARDING DIET RECREATIONAL DRUG USE DRUG USE?NO PATIENT DENIES ABUSE OR MISSUSED OF ANY MEDICATION. PATIENT DENIES USE OF ANY ILLEGAL SUBSTANCE INCLUDING MARIJUANA OR COCAINE. EXERCISE: NO REGULAR EXERCISE. LEARNING BARRIERS / SPECIAL NEEDS CHANGE FROM LAST VISIT?NO BARRIERS TO LEARNING?NO HEARING IMPAIRED?YES VISION IMPAIRED?NO COGNITIVELY IMPAIRED?NO :HEARING AIDES C/O INCREASED HEARING LOSS READINESS TO LEARN?YES LEARNING PREFERENCES?NO LEARNING CAPABILITIES PRESENT?YES EMOTIONAL BARRIERS?NO SPECIAL DEVICES?NO LIBRARIAN SPECIAL LIBRARY NEEDED?NO PAIN CLINIC PFS, CLERGY, PUBLIC HEALTH REFERRALS PFS REFERRAL NEEDED?NO CLERGY REFERRAL NEEDED?NO PUBLIC HEALTH REFERRAL NEEDED?NO WAS THE PROVIDER NOTIFIED OF ANY PERTINENT INFO?NO HAS THE PATIENT BEEN EDUCATED REGARDING HIS/HER PLAN OF CARE?YES HAS THE PATIENT BEEN EDUCATED REGARDING PAIN, THE RISK FOR PAIN, THE IMPORTANCE OF EFFECTIVE PAIN MANAGEMENT, AND THE PAIN ASSESSMENT PROCESS?YES LATEX QUESTIONNAIRE LATEX ALLERGY : HAVE YOU EVER DEVELOPED ANY TYPE OF REACTION AFTER HANDLING LATEX PRODUCTS SUCH RUBBER GLOVES, CONDOMS, DIAPHRAGMS, BALLOONS, SOCKS, OR UNDERWEAR?NO LATEX ALLERGY : HAVE YOU EVER DEVELOPED ANY TYPE OF REACTION DURING OR AFTER DENTAL APPOINTMENT, VAGINAL/RECTAL EXAMINATION, SURGICAL PROCEDURE, OR ANY OTHER EXPOSURE?NO LATEX RISK : HAVE YOU EVER HAD ANY DIFFICULTY BREATHING OR HIVES AFTER EATING OR HANDLING ANY FRUITS, OR VEGETABLES; SUCH KIWI, BANANAS, STONE FRUITS, OR CHESTNUTSNO LATEX RISK : DO YOU HAVE A PREVIOUS PERSONAL HISTORY OF MORE THAN NINE SURGERIES, SPINA BIFIDA, OR REPEATED CATHERIZATIONS? NO LATEX RISK : ARE YOU FREQUENTLY EXPOSED TO LATEX PRODUCTS IN YOUR OCCUPATION?NO DATE ASKED : 07/06/2018 CAFFEINE CAFFEINE USE?YES 1 COFFEE DAILY ADVANCE DIRECTIVE ADVANCE DIRECTIVE DISCUSSED WITH PATIENT:YES HCP-LAUREL VALENCIA ORTHODOXY [id number] CATHOLIC MARITAL STATUS: . ALCOHOL SCREENING DID YOU HAVE A DRINK CONTAINING ALCOHOL IN THE PAST YEAR?NO POINTS0 INTERPRETATIONNEGATIVE OCCUPATION: DISABLED. SEXUAL HX HAD SEX IN THE LAST 12 MONTHS (VAGINAL, ORAL, OR ANAL)?YES WITHWOMEN ONLY USE PROTECTION?NO HAVE YOU EVER HAD AN STD?NO 08/25/17 0945 REVIEWED WITH PT. ADREVIEWED WITH PATIENT 05/03/18 1540 JSREVIEWED WITH PT 05/19/18 1120 BVREVIEWED WITH PT 06/03/18 1316 BVREVIEWED WITH PATIENT 07/06/18 1039 JSREVIEWED WITH PATIENT 10/20/18 0930 LASREVIEWED WITH PATIENT 01/25/19 0917 JS. HOSPITALIZATION/MAJOR DIAGNOSTIC PROCEDURE CHEST PAIN/DYSPNEA, R/O [place] ([place]) 10/15 BACK SURGERY 01/2017 NECK AND LEFT SIDED PAIN AND WEAKNESS 08/2018 REVIEW OF SYSTEMS REVIEWED BY: PROVIDER: WILLIAM DYE . CONSTITUTIONAL: ANY CHANGE IN YOUR MEDICAL CONDITION? NO . CHILLS NO . FEVER NO . INFECTION: DO YOU HAVE NEW INFECTIONS? NO . DO YOU HAVE HISTORY OF MRSA? NO . MUSCULOSKELETAL: ANY NEW PATTERNS OF PAIN OR NUMBNESS? NO . GASTROENTEROLOGY: ANY NEW CHANGE IN BOWEL CONTROL? NO . GENITOURINARY: ANY NEW CHANGE IN BLADDER CONTROL? NO . IS THERE A CHANCE YOU COULD BE ? NO . HEMATOLOGY/LYMPH: DO YOU TAKE ANY BLOOD THINNERS? (FOR EXAMPLE- COUMADIN, PLAVIX, AGGRENOX, PLATEL, PRADAXA, OR XARELTO) NO . WHEN WAS YOUR LAST DOSE? DATE: TIME: . NEUROLOGY: HAVE YOU FALLEN IN THE PAST 12 MONTHS? NO . ANY NEW EXTREMITY NUMBNESS OR WEAKNESS? NO . CARDIOLOGY: DO YOU HAVE A PACEMAKER OR DEFIBRILLATOR? NO . RESPIRATORY: HAVE YOU BEEN SICK IN THE PAST WEEK? NO . FEVER NO . FLU LIKE SYMPTOMS? NO . COUGH NO . INTEGUMENTARY: DO YOU HAVE ANY RASHES OR OPEN SORES? NO . ALLERGIC/IMMUNO: ARE YOU ALLERGIC TO IV DYE? NO . ANY NEW ALLERGIES? NO . PSYCHIATRIC: DO YOU HAVE THOUGHTS OF HURTING YOURSELF OR SOMEONE ELSE? NO . ARE YOU ABUSED, NEGLECTED, OR IN AN UNSAFE ENVIRONMENT? NO . ENDOCRINOLOGY: ARE YOU DIABETIC? NO . OTHER: DO YOU NEED ANY PRESCRIPTIONS? NO . IF YES, PLEASE LIST: ____ . ANY NEW PROBLEMS WITH YOUR MEDICATIONS? NO . WHEN DID YOU LAST EAT? ____ . WHEN DID YOU LAST DRINK? ____ . WHAT DID YOU LAST DRINK? ____ . NAME OF PERSON DRIVING YOU HOME? ____ . DO YOU HAVE ANY OTHER QUESTIONS OR CONCERNS FLU VACCINE 12/31/18 . VITAL SIGNS WT 224 LBS, HT 68 IN, BMI 34.06 INDEX, BP 138/83 MM HG, HR 83 /MIN, RR 18 /MIN, TEMP 97.7 F, OXYGEN SAT % 98%, SAFE IN ENV? (Y/N) YES, NA INITIALS TN 09:18, REVIEWED BY: ARTURO. EXAMINATION GENERAL EXAMINATION: LUNGS: LUNG SOUNDS ARE CLEAR . HEART: HEART RATE REGULAR . MUSCULOSKELETAL:*, MUSCLE STRENGTH TESTING 5/5 BILATERAL UPPER EXTREMITIES. . CERVICAL+ FOR PAIN WITH PALPATION OF CERVICAL SPINE. + FOR PAIN WITH PALPATION OF CERVICAL PARASPINALS. REPORTING AN INCRASE IN NECK PAIN W ROJM NECK. DIAGNOSTIC TESTS REVIEWED CERVICAL MRI-08/21/18. 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 PREVENTIVE MEDICINE PAIN CLINIC TEACHING: PROCEDURE TEACHING CERVICAL EPIDURAL TEACHING REVIEWED WITH PATIENT, PT DECLINED PRINTED INFORMATION 01/25/19 0957 [facility]. PROCEDURE CODES FA211 ESTABILISHED PATIENT [facility] FACILITY CHARGE DISPOSITION & COMMUNICATION FOLLOW UP POST (REASON: C7-T1 JHON) ELECTRONICALLY SIGNED BY WILLIAM DYE, HARDIK ON 02/07/2019 AT 03:01 PM EST DISCLAIMER : THIS IS A VISIT SUMMARY EXTRACTED FROM THE [employer] CHART. IT IS NOT A COPY OF THE [email or web address] PROGRESS NOTE. ENE
== END ==
LOC: M PAIN 09:15
PROVIDERS: ATTEND Nurse Practitioner Family
DX: M47.22 Other spondylosis with radiculopathy, cervical region (principal); G89.29 Other chronic pain; I10 Essential (primary) hypertension; G47.30 Sleep apnea, unspecified; Z86.59 Personal history of other mental and behavioral disorders; Z88.0 Allergy status to penicillin; Z79.899 Other long term (current) drug therapy

== ENCOUNTER → 2019-01-25 | Outpatient (CLI) | payer MEDICARE ==
[2019-01-25 11:20] LABS: HEMOGLOBIN A1c 6.1 %
[2019-01-25 11:26] LABS: BLOOD UREA NITROGEN 13 MG/DL (7-18); CALCIUM LEVEL 9.1 MG/DL (8.5-10.1); CARBON DIOXIDE LEVEL 33 MEQ/L (21-32); CHLORIDE LEVEL 101 MEQ/L (98-107); CHOLESTEROL LEVEL 182 MG/DL (<200); CREATININE FOR GFR 0.88 MG/DL (0.70-1.30); GLOMERULAR FILTRATION RATE > 60.0 (>56); GLUCOSE, FASTING 108 MG/DL (70-100); HDL CHOLESTEROL 35 MG/DL (>40); LDL CHOLESTEROL 108 MG/DL (<100); NON-HDL-C 147 MG/DL; POTASSIUM SERUM 4.4 MEQ/L (3.5-5.1); SODIUM LEVEL 137 MEQ/L (136-145); TRIGLYCERIDES LEVEL 197 MG/DL (<150)
== END ==
LOC: M LAB 10:18
PROVIDERS: ATTEND Physician Assistant Medical
DX: I10 Essential (primary) hypertension (principal); R73.03 Prediabetes

== ENCOUNTER → 2019-02-23 | Outpatient (CLI) | payer MEDICARE ==
[~2019-02-23] MED LIST changes: +ISOVUE-M 300 61% 15ML VIAL (Q9967) As Ordered ONE; +LIDOCAINE 1% SDV INJ 30 ML VIAL As Ordered ONE; +diazePAM 5 MG TAB As Ordered ONE; +methylPREDNISolone SUSP 40 MG/ML (DEPO-medrol) VIAL (J1030) As Ordered ONE; +oxyCODONE 5MG TAB As Ordered ONE
--- NOTE | 2019-02-23 12:58 | REP ---
C-ARM VIEWS CERVICAL SPINE: CLINICAL HISTORY: Pain. Two C-arm views of the cervical spine performed during cervical epidural injection performed by Dr. Rod. Needle is seen at the junction of the cervical and thoracic spine. 11 seconds fluoroscopy time utilized. Electronically Signed by Shailesh Buchanan MD 02/23/2019 01:10 P
--- NOTE | 2019-03-15 03:43 | ECWPNPC ---
PATIENT NAME: KIMBERLEY VALENCIA : 1965 GENDER: MALE VISIT DATE: 02/23/2019 DISCHARGE DATE: 02/23/19 1235 VISIT LOCKED DATE TIME: PHYSICIAN: OMA POWELL MD PHYSICIAN PAGER NO: TEXT PN [phone] RESOURCE: OMA POWELL MD REASON FOR APPOINTMENT 1. C7-T1 JHON HISTORY OF PRESENT ILLNESS HISTORY OF PRESENT ILLNESS: PAIN THE PATIENT DESCRIBES THE PAIN... FALL RISK SCREENING: SCREENING :NO FALLS REPORTED IN THE LAST YEAR CURRENT MEDICATIONS TAKING ARTIFICIAL TEARS 0.4 % SOLUTION 1 DROP INTO AFFECTED EYE NEEDED OPHTHALMIC ONCE A DAY, NOTES: 08 TAKING NEXIUM 24HR 20 MG CAPSULE DELAYED RELEASE 1 CAPSULE ORALLY ONCE A DAY, NOTES: 02-23-19429 TAKING TESTOSTERONE CYPIONATE 200 MG/ML OIL 0.8 ML INTRAMUSCULAR(DR KIERRA ELMORE) EVERY 10 DAYS, NOTES: 9 DAYS AGO TAKING RESTASIS 0.05 % EMULSION 1 DROP INTO AFFECTED EYE OPHTHALMIC TWICE A DAY, NOTES: 02-22-19 06 TAKING AMLODIPINE BESYLATE 10 MG TABLET 1 TABLET ORALLY ONCE A DAY, NOTES: 02-23-19499 TAKING VITAMIN D3 2000 UNIT CAPSULE 1 CAPSULE ORALLY ONCE A DAY, NOTES: 02-23-19499 TAKING OXYCODONE-ACETAMINOPHEN 10-325 MG TABLET 1 TABLET NEEDED ORALLY EVERY 6 HRS, NOTES: 02-22-192329 TAKING LISINOPRIL-HYDROCHLOROTHIAZIDE 20-25 MG TABLET 1 TABLET ORALLY ONCE A DAY, NOTES: 02-23-19499 TAKING FERROUS SULFATE 325 (65 FE) MG TABLET 1 TABLET ORALLY ONCE A DAY NOT-TAKING LISINOPRIL 10 MG TABLET 1 TABLET ORALLY ONCE A DAY NOT-TAKING SOMA 350 MG TABLET 1 TABLET NEEDED ORALLY FOR SPASMS AND PAIN EVERY 8 HOURS NEEDED MDD3 NOT-TAKING CLONAZEPAM 0.5 MG TABLET DISPERSIBLE 1-2 TABLET ON THE TONGUE AND ALLOW TO DISSOLVE ORALLY AT BEDTIME NEEDED FOR INSOMNIA AND RESTLESS LEGS MDD:2 NOT-TAKING TIZANIDINE HCL 4 MG TABLET 1 TABLET NEEDED ORALLY THREE TIMES A DAY, NOTES: NONE TAKEN RECENTLY NOT-TAKING VITAMIN D 2000 UNIT CAPSULE 1 CAPSULE ORALLY DAILY NOT-TAKING MECLIZINE HCL 25 MG TABLET CHEWABLE 1 TABLET NEEDED ORALLY ONCE A DAY NOT-TAKING FEXOFENADINE HCL 180 MG TABLET 1 TABLET NEEDED ORALLY ONCE A DAY NOT-TAKING PERCOCET 10-325 MG TABLET 1 TABLET NEEDED ORALLY EVERY 6 HRS MDD4 NOT-TAKING CYMBALTA 30 MG CAPSULE DELAYED RELEASE PARTICLES 1 CAPSULE ORALLY ONCE A DAY NOT-TAKING TOPIRAMATE 25 MG TABLET 1 TABLET ORALLY TWICE A DAY MEDICATION LIST REVIEWED AND RECONCILED WITH THE PATIENT PAST MEDICAL HISTORY HYPERTENSION BARRETS ESOPHAGUS SLEEP APNEA [place] WITH CPAP (PULM ASSOC) BACK PAIN - ([facility]) HYPOTESTOSTERONEMIA (C. [place]) MAJOR DEPRESSION, SINGLE EPISODE (MANISH) ANXIETY OA (MULTIPLE LOCATIONS) ASCVD 10-YEAR RISK IS 5.3% IN 08/2016 OSCAR'S ESOPHAGUS: GASTRO IN [place] IBS ALLERGIES PENICILLIN (FOR ALLERGIES USE ONLY): FEET SWELLS - ALLERGY SURGICAL HISTORY TONSILLECTOMY CHILD BILATERAL CARPAL TUNNEL (FISH) 2009 EGD/COLONOSCOPY (KATHRYN IN [place]) 11/2011 LEFT ELBOW CUBITAL TUNNEL TRANSLATION (FISH) 2012 RIGHT CARPAL TUNNEL 07/05/13 COLO/EGD- KATHRYN-[place]- MILD ESOPHAGITIS 05/20 BACK SURGERY- DR SALGADO SOS 01/2017 HERNIA REPAIR 2018 FAMILY HISTORY FATHER: 70 YRS, PROSTATE CA AT AGE 65, DIAGNOSED WITH HYPERTENSION MOTHER: 76 YRS, DIABETES SIBLINGS: BROTHER CROHN'S SISTER THYROID DISEASE DAUGHTER(S): ALIVE, DAUGHTER MVA 1DAUGHTER(S) . LIVER FAILURE. SOCIAL HISTORY GENERAL: TOBACCO USE ARE YOU A:NONSMOKER HIV / HEP-C SCREENING HIV TEST OFFERED TO PATIENT:YES DATE OFFERED:01/28/2017 TEST ACCEPTED:NO HEP-C TEST OFFERED TO PATIENT:NO REASON:PATIENT DECLINED OTHERS AT HOME: SPOUSE. EDUCATION LEVEL OF EDUCATION:HIGH SCHOOL DIET: REGULAR. LANGUAGE LANGUAGES SPOKEN:OCCITAN DOMESTIC VIOLENCE DO YOU FEEL SAFE IN YOUR ENVIRONMENT?YES BMI CARE GOAL FOLLOW-UP ABOVE NORMAL BMI FOLLOW-UPLIFESTYLE EDUCATION REGARDING DIET RECREATIONAL DRUG USE DRUG USE?NO PATIENT DENIES ABUSE OR MISSUSED OF ANY MEDICATION. PATIENT DENIES USE OF ANY ILLEGAL SUBSTANCE INCLUDING MARIJUANA OR COCAINE. EXERCISE: NO REGULAR EXERCISE. LEARNING BARRIERS / SPECIAL NEEDS CHANGE FROM LAST VISIT?NO BARRIERS TO LEARNING?NO HEARING IMPAIRED?YES VISION IMPAIRED?NO COGNITIVELY IMPAIRED?NO :HEARING AIDES C/O INCREASED HEARING LOSS READINESS TO LEARN?YES LEARNING PREFERENCES?NO LEARNING CAPABILITIES PRESENT?YES EMOTIONAL BARRIERS?NO SPECIAL DEVICES?NO ORDER BUILDER NEEDED?NO PAIN CLINIC PFS, CLERGY, PUBLIC HEALTH REFERRALS PFS REFERRAL NEEDED?NO CLERGY REFERRAL NEEDED?NO PUBLIC HEALTH REFERRAL NEEDED?NO WAS THE PROVIDER NOTIFIED OF ANY PERTINENT INFO?NO HAS THE PATIENT BEEN EDUCATED REGARDING HIS/HER PLAN OF CARE?YES HAS THE PATIENT BEEN EDUCATED REGARDING PAIN, THE RISK FOR PAIN, THE IMPORTANCE OF EFFECTIVE PAIN MANAGEMENT, AND THE PAIN ASSESSMENT PROCESS?YES LATEX QUESTIONNAIRE LATEX ALLERGY : HAVE YOU EVER DEVELOPED ANY TYPE OF REACTION AFTER HANDLING LATEX PRODUCTS SUCH RUBBER GLOVES, CONDOMS, DIAPHRAGMS, BALLOONS, SOCKS, OR UNDERWEAR?NO LATEX ALLERGY : HAVE YOU EVER DEVELOPED ANY TYPE OF REACTION DURING OR AFTER DENTAL APPOINTMENT, VAGINAL/RECTAL EXAMINATION, SURGICAL PROCEDURE, OR ANY OTHER EXPOSURE?NO DATE ASKED : 07/06/2018 LATEX RISK : HAVE YOU EVER HAD ANY DIFFICULTY BREATHING OR HIVES AFTER EATING OR HANDLING ANY FRUITS, OR VEGETABLES; SUCH KIWI, BANANAS, STONE FRUITS, OR CHESTNUTSNO LATEX RISK : DO YOU HAVE A PREVIOUS PERSONAL HISTORY OF MORE THAN NINE SURGERIES, SPINA BIFIDA, OR REPEATED CATHERIZATIONS? NO LATEX RISK : ARE YOU FREQUENTLY EXPOSED TO LATEX PRODUCTS IN YOUR OCCUPATION?NO CAFFEINE CAFFEINE USE?YES 1 COFFEE DAILY ADVANCE DIRECTIVE ADVANCE DIRECTIVE DISCUSSED WITH PATIENT:YES HCP-LAUREL VALENCIA TENRIISM [id number] AMISH MARITAL STATUS: . ALCOHOL SCREENING DID YOU HAVE A DRINK CONTAINING ALCOHOL IN THE PAST YEAR?NO POINTS0 INTERPRETATIONNEGATIVE OCCUPATION: DISABLED. SEXUAL HX HAD SEX IN THE LAST 12 MONTHS (VAGINAL, ORAL, OR ANAL)?YES WITHWOMEN ONLY USE PROTECTION?NO HAVE YOU EVER HAD AN STD?NO 08/25/17 0945 REVIEWED WITH PT. ADREVIEWED WITH PATIENT 05/03/18 1540 JSREVIEWED WITH PT 05/19/18 1120 BVREVIEWED WITH PT 06/03/18 1316 BVREVIEWED WITH PATIENT 07/06/18 1039 JSREVIEWED WITH PATIENT 10/20/18 0930 LASREVIEWED WITH PATIENT 01/25/19 0917 JS. HOSPITALIZATION/MAJOR DIAGNOSTIC PROCEDURE CHEST PAIN/DYSPNEA, R/O [place] ([place]) 10/15 BACK SURGERY 01/2017 NECK AND LEFT SIDED PAIN AND WEAKNESS 08/2018 REVIEW OF SYSTEMS REVIEWED BY: PROVIDER: . CONSTITUTIONAL: ANY CHANGE IN YOUR MEDICAL CONDITION? NO . CHILLS NO . FEVER NO . INFECTION: DO YOU HAVE NEW INFECTIONS? NO . DO YOU HAVE HISTORY OF MRSA? NO . MUSCULOSKELETAL: ANY NEW PATTERNS OF PAIN OR NUMBNESS? NO . GASTROENTEROLOGY: ANY NEW CHANGE IN BOWEL CONTROL? NO . GENITOURINARY: ANY NEW CHANGE IN BLADDER CONTROL? NO . IS THERE A CHANCE YOU COULD BE ? NO . HEMATOLOGY/LYMPH: DO YOU TAKE ANY BLOOD THINNERS? (FOR EXAMPLE- COUMADIN, PLAVIX, AGGRENOX, PLATEL, PRADAXA, OR XARELTO) NO . WHEN WAS YOUR LAST DOSE? DATE: TIME: . NEUROLOGY: HAVE YOU FALLEN IN THE PAST 12 MONTHS? NO . ANY NEW EXTREMITY NUMBNESS OR WEAKNESS? NO . CARDIOLOGY: DO YOU HAVE A PACEMAKER OR DEFIBRILLATOR? NO . RESPIRATORY: HAVE YOU BEEN SICK IN THE PAST WEEK? NO . FEVER NO . FLU LIKE SYMPTOMS? NO . COUGH NO . INTEGUMENTARY: DO YOU HAVE ANY RASHES OR OPEN SORES? NO . ALLERGIC/IMMUNO: ARE YOU ALLERGIC TO IV DYE? NO . ANY NEW ALLERGIES? NO . PSYCHIATRIC: DO YOU HAVE THOUGHTS OF HURTING YOURSELF OR SOMEONE ELSE? NO . ARE YOU ABUSED, NEGLECTED, OR IN AN UNSAFE ENVIRONMENT? NO . ENDOCRINOLOGY: ARE YOU DIABETIC? NO . OTHER: DO YOU NEED ANY PRESCRIPTIONS? NO . IF YES, PLEASE LIST: ____ . ANY NEW PROBLEMS WITH YOUR MEDICATIONS? NO . WHEN DID YOU LAST EAT? ____[phone] 8 PM . WHEN DID YOU LAST DRINK? ____[phone] . WHAT DID YOU LAST DRINK? ____BLACK COFFEE . NAME OF PERSON DRIVING YOU HOME? ____JEFF . DO YOU HAVE ANY OTHER QUESTIONS OR CONCERNS NO . VITAL SIGNS WT 224.4 LBS, HT 68 IN, BMI 34.12 INDEX, BP 129/82 MM HG, HR 75 /MIN, RR 18 /MIN, TEMP 98.4 F, OXYGEN SAT % 97%, SAFE IN ENV? (Y/N) YES, NA INITIALS AW 1044, REVIEWED BY: KG. 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 OMA POWELL CLEAN UP SUPERVISOR NONE ANESTHESIA LOCAL PRE PROCEDURE NOTE THE PATIENT HAS A HISTORY OF CHRONIC CERVICAL PAIN. I EVALUATED THE PATIENT AND REVIEWED THE CHART. I WENT OVER THE RISKS, ALTERNATIVES, AND BENEFITS ASSOCIATED WITH THIS PROCEDURE. THE PATIENT WOULD LIKE TO PROCEED AND GIVES CONSENT TO PERFORM THE PROCEDURE. THE PATIENT DENIES UNEXPLAINABLE WEIGHT LOSS, FEVER, CHILLS, OR NEW CHANGES IN URINARY OR BOWEL CONTROL DESCRIPTION OF PROCEDURE THE PATIENT WAS BROUGHT TO THE PROCEDURE ROOM AND PLACED IN THE PRONE POSITION. THE CERVICOTHORACIC AREA WAS CLEANED WITH BETADINE SOLUTION AND DRAPED ASEPTICALLY. THE PROCEDURE WAS DONE UNDER STERILE CONDITIONS. I CHECKED LATERALITY AND THE LEVEL WHERE THE PROCEDURE WAS GOING TO BE PERFORMED WITH THE PATIENT AND THE SUPPORTING STAFF AT THE MOMENT OF THE TIME OUT IN THE PROCEDURE ROOM. UNDER FLUOROSCOPIC GUIDANCE, THE TARGET WAS SELECTED AT THE INTERLAMINAR LEVEL OF C7-T1. LIDOCAINE WAS USED TO NUMB THE SKIN AND THE SUBCUTANEOUS TISSUE BELOW IT. EPIDURAL TUOHY NEEDLE 17-GAUGE WAS ADVANCED UNDER FLUOROSCOPIC GUIDANCE AND FOLLOWING PATIENT FEEDBACK UNTIL THE EPIDURAL SPACE WAS REACHED 6 CM DEEP INTO THE SKIN BY THE LOSS OF RESISTANCE TECHNIQUE. ISOVUE M DYE 30%, 0.25 ML, WAS INJECTED SHOWING ADEQUATE SPREAD OF THE DYE. THEN, A SOLUTION OF 3 ML OF NORMAL SALINE WITH DEPO-MEDROL 60 MG WAS INJECTED SLOWLY FOLLOWING PATIENT FEEDBACK. THERE WAS NO EVIDENCE OF BLOOD, PARESTHESIA OR CEREBROSPINAL FLUID DURING THE PROCEDURE. THE PATIENT WAS SENT TO THE RECOVERY ROOM. THE PATIENT WAS MOVING THE EXTREMITIES AND DOING WELL. THERE WAS NO COMPLICATION DURING THE PROCEDURE. FLUOROSCOPY TIME WAS 10 SECONDS POST PROCEDURE NOTE THE PATIENT WILL BE SEEN IN A FOLLOW UP IN THE NEXT FEW WEEKS. I AM LOOKING FOR LONG LASTING PAIN RELIEF WITH THIS PROCEDURE FOR THE PATIENT. INSTRUCTIONS WERE GIVEN, QUESTIONS WERE ANSWERED, AND THE PATIENT EXPRESSED UNDERSTANDING AND AGREES WITH THE PLAN. I, MARIE UNDERWOOD, DOCUMENTED THE ABOVE INFORMATION ACTING A SCRIBE FOR DR. POWELL. I HAVE REVIEWED THE ABOVE DOCUMENT, WRITTEN BY MARIE LOPEZ AND I VERIFY THAT IT IS ACCURATE. DIAGNOSTIC IMAGING [facility] FLUORO GUIDE SPINE INJECTION (PAIN)[id number] PROCEDURE CODES 6045F RADXPS IN END [id number] PXD [id number] CERVICAL/THORACIC W/ IMAGING DISPOSITION & COMMUNICATION FOLLOW UP 3 WEEKS ELECTRONICALLY SIGNED BY OMA POWELL MD, MD ON 03/14/2019 AT 04:47 PM EST DISCLAIMER : THIS IS A VISIT SUMMARY EXTRACTED FROM THE [employer] CHART. IT IS NOT A COPY OF THE [employer] PROGRESS NOTE. ENE
== END ==
LOC: M PAIN 10:30
PROVIDERS: ATTEND Anesthesiology
DX: M50.10 Cervical disc disorder with radiculopathy, unspecified cervical region (principal); M51.14 Intervertebral disc disorders with radiculopathy, thoracic region; I10 Essential (primary) hypertension; G47.30 Sleep apnea, unspecified; Z86.59 Personal history of other mental and behavioral disorders; Z88.0 Allergy status to penicillin; Z79.899 Other long term (current) drug therapy
CPT/HCPCS: 62321; J1030; Q9967

== ENCOUNTER → 2019-03-01 | Outpatient (CLI) | payer MEDICARE ==
[~2019-03-01] MED LIST changes: -ISOVUE-M 300 61% 15ML VIAL (Q9967) As Ordered ONE; -LIDOCAINE 1% SDV INJ 30 ML VIAL As Ordered ONE; -diazePAM 5 MG TAB As Ordered ONE; -methylPREDNISolone SUSP 40 MG/ML (DEPO-medrol) VIAL (J1030) As Ordered ONE; -oxyCODONE 5MG TAB As Ordered ONE
[2019-03-01 07:11] LABS: HEMOGLOBIN 12.9 g/dl (13.5-17.5)
== END ==
LOC: M LAB 06:38
PROVIDERS: ATTEND Nurse Practitioner Family
DX: E29.1 Testicular hypofunction (principal)

== ENCOUNTER → 2019-03-14 | Outpatient (CLI) | payer MEDICARE ==
--- NOTE | 2019-03-24 03:21 | ECWPNPC ---
PATIENT NAME: KIMBERLEY VALENCIA : 1965 GENDER: MALE VISIT DATE: 03/14/2019 DISCHARGE DATE: 03/14/19 1032 VISIT LOCKED DATE TIME: PHYSICIAN: WILLIAM FREEMAN PHYSICIAN PAGER NO: TEXT WL [phone] RESOURCE: WILLIAM FREEMAN REASON FOR APPOINTMENT 1. POST JHON HISTORY OF PRESENT ILLNESS HISTORY OF PRESENT ILLNESS: HERE FOR POST PROCEDURE F/U.HAD JHON ON 02/23/19.REPORTED SIGNIFICANT REDUCTION IN PAIN THAT CONTINUES TODAY.CHIEF AREA OF PAIN IS LEFT LOW BACK.PAIN RADIATES DOWN LEFT LEG.RATING PAIN VAS 2-4/10.HAS RESPONDED WELL TO LEFT SIJ IN PAST. PAIN THE PATIENT DESCRIBES THE PAIN... FALL RISK SCREENING: SCREENING :NO FALLS REPORTED IN THE LAST YEAR CURRENT MEDICATIONS TAKING ARTIFICIAL TEARS 0.4 % SOLUTION 1 DROP INTO AFFECTED EYE NEEDED OPHTHALMIC ONCE A DAY, NOTES: 0800 TAKING NEXIUM 24HR 20 MG CAPSULE DELAYED RELEASE 1 CAPSULE ORALLY ONCE A DAY, NOTES: 02-23-19 0430 TAKING TESTOSTERONE CYPIONATE 200 MG/ML OIL 0.8 ML INTRAMUSCULAR(DR KIERRA ELMORE) EVERY 10 DAYS, NOTES: 9 DAYS AGO TAKING RESTASIS 0.05 % EMULSION 1 DROP INTO AFFECTED EYE OPHTHALMIC TWICE A DAY, NOTES: 02-22-19 0600 TAKING AMLODIPINE BESYLATE 10 MG TABLET 1 TABLET ORALLY ONCE A DAY, NOTES: 02-23-19 050 TAKING VITAMIN D3 2000 UNIT CAPSULE 1 CAPSULE ORALLY ONCE A DAY, NOTES: 02-23-19 050 TAKING OXYCODONE-ACETAMINOPHEN 10-325 MG TABLET 1 TABLET NEEDED ORALLY EVERY 6 HRS, NOTES: 02-22-19 2330 TAKING LISINOPRIL-HYDROCHLOROTHIAZIDE 20-25 MG TABLET 1 TABLET ORALLY ONCE A DAY, NOTES: 02-23-19 050 TAKING FERROUS SULFATE 325 (65 FE) MG TABLET 1 TABLET ORALLY ONCE A DAY DISCONTINUED LISINOPRIL 10 MG TABLET 1 TABLET ORALLY ONCE A DAY DISCONTINUED SOMA 350 MG TABLET 1 TABLET NEEDED ORALLY FOR SPASMS AND PAIN EVERY 8 HOURS NEEDED MDD3 DISCONTINUED CLONAZEPAM 0.5 MG TABLET DISPERSIBLE 1-2 TABLET ON THE TONGUE AND ALLOW TO DISSOLVE ORALLY AT BEDTIME NEEDED FOR INSOMNIA AND RESTLESS LEGS MDD:2 DISCONTINUED TIZANIDINE HCL 4 MG TABLET 1 TABLET NEEDED ORALLY THREE TIMES A DAY, NOTES: NONE TAKEN RECENTLY DISCONTINUED VITAMIN D 2000 UNIT CAPSULE 1 CAPSULE ORALLY DAILY DISCONTINUED MECLIZINE HCL 25 MG TABLET CHEWABLE 1 TABLET NEEDED ORALLY ONCE A DAY DISCONTINUED FEXOFENADINE HCL 180 MG TABLET 1 TABLET NEEDED ORALLY ONCE A DAY DISCONTINUED PERCOCET 10-325 MG TABLET 1 TABLET NEEDED ORALLY EVERY 6 HRS MDD4 DISCONTINUED CYMBALTA 30 MG CAPSULE DELAYED RELEASE PARTICLES 1 CAPSULE ORALLY ONCE A DAY DISCONTINUED TOPIRAMATE 25 MG TABLET 1 TABLET ORALLY TWICE A DAY MEDICATION LIST REVIEWED AND RECONCILED WITH THE PATIENT PAST MEDICAL HISTORY HYPERTENSION BARRETS ESOPHAGUS SLEEP APNEA [place] WITH CPAP (PULM ASSOC) BACK PAIN - ([facility]) HYPOTESTOSTERONEMIA (Jermaine ELMORE) MAJOR DEPRESSION, SINGLE EPISODE (MANISH) ANXIETY OA (MULTIPLE LOCATIONS) ASCVD 10-YEAR RISK IS 5.3% IN 08/2016 OSCAR'S ESOPHAGUS: GASTRO IN [place] IBS ALLERGIES PENICILLIN (FOR ALLERGIES USE ONLY): FEET SWELLS - ALLERGY SURGICAL HISTORY TONSILLECTOMY CHILD BILATERAL CARPAL TUNNEL (FISH) 2009 EGD/COLONOSCOPY ([facility]ATHRYN IN [place]) 11/2011 LEFT ELBOW CUBITAL TUNNEL TRANSLATION (FISH) 2012 RIGHT CARPAL TUNNEL 07/05/13 COLO/EGD- KATHRYN-SYR- MILD ESOPHAGITIS 05/20 BACK SURGERY- DR SALGADO SOS 01/2017 HERNIA REPAIR 2018 FAMILY HISTORY FATHER: 70 YRS, PROSTATE CA AT AGE 65, DIAGNOSED WITH HYPERTENSION MOTHER: 76 YRS, DIABETES SIBLINGS: BROTHER CROHN'S SISTER THYROID DISEASE DAUGHTER(S): ALIVE, DAUGHTER MVA 1DAUGHTER(S) - HEALTHY. LIVER FAILURE. SOCIAL HISTORY GENERAL: TOBACCO USE ARE YOU A:NONSMOKER HIV / HEP-C SCREENING HIV TEST OFFERED TO PATIENT:YES DATE OFFERED:01/28/2017 TEST ACCEPTED:NO HEP-C TEST OFFERED TO PATIENT:NO REASON:PATIENT DECLINED OTHERS AT HOME: SPOUSE. EDUCATION LEVEL OF EDUCATION:HIGH SCHOOL DIET: REGULAR. LANGUAGE LANGUAGES SPOKEN:AFGH[place] DOMESTIC VIOLENCE DO YOU FEEL SAFE IN YOUR ENVIRONMENT?YES BMI CARE GOAL FOLLOW-UP ABOVE NORMAL BMI FOLLOW-UPLIFESTYLE EDUCATION REGARDING DIET RECREATIONAL DRUG USE DRUG USE?NO PATIENT DENIES ABUSE OR MISSUSED OF ANY MEDICATION. PATIENT DENIES USE OF ANY ILLEGAL SUBSTANCE INCLUDING MARIJUANA OR COCAINE. EXERCISE: NO REGULAR EXERCISE. LEARNING BARRIERS / SPECIAL NEEDS CHANGE FROM LAST VISIT?NO BARRIERS TO LEARNING?NO HEARING IMPAIRED?YES VISION IMPAIRED?NO COGNITIVELY IMPAIRED?NO :HEARING AIDES C/O INCREASED HEARING LOSS READINESS TO LEARN?YES LEARNING PREFERENCES?NO LEARNING CAPABILITIES PRESENT?YES EMOTIONAL BARRIERS?NO SPECIAL DEVICES?NO PRODUCT DEVELOPMENT ECOLOGIST NEEDED?NO PAIN CLINIC PFS, CLERGY, PUBLIC HEALTH REFERRALS PFS REFERRAL NEEDED?NO CLERGY REFERRAL NEEDED?NO PUBLIC HEALTH REFERRAL NEEDED?NO WAS THE PROVIDER NOTIFIED OF ANY PERTINENT INFO?NO HAS THE PATIENT BEEN EDUCATED REGARDING HIS/HER PLAN OF CARE?YES HAS THE PATIENT BEEN EDUCATED REGARDING PAIN, THE RISK FOR PAIN, THE IMPORTANCE OF EFFECTIVE PAIN MANAGEMENT, AND THE PAIN ASSESSMENT PROCESS?YES LATEX QUESTIONNAIRE LATEX ALLERGY : HAVE YOU EVER DEVELOPED ANY TYPE OF REACTION AFTER HANDLING LATEX PRODUCTS SUCH RUBBER GLOVES, CONDOMS, DIAPHRAGMS, BALLOONS, SOCKS, OR UNDERWEAR?NO LATEX ALLERGY : HAVE YOU EVER DEVELOPED ANY TYPE OF REACTION DURING OR AFTER DENTAL APPOINTMENT, VAGINAL/RECTAL EXAMINATION, SURGICAL PROCEDURE, OR ANY OTHER EXPOSURE?NO LATEX RISK : HAVE YOU EVER HAD ANY DIFFICULTY BREATHING OR HIVES AFTER EATING OR HANDLING ANY FRUITS, OR VEGETABLES; SUCH KIWI, BANANAS, STONE FRUITS, OR CHESTNUTSNO LATEX RISK : DO YOU HAVE A PREVIOUS PERSONAL HISTORY OF MORE THAN NINE SURGERIES, SPINA BIFIDA, OR REPEATED CATHERIZATIONS? NO LATEX RISK : ARE YOU FREQUENTLY EXPOSED TO LATEX PRODUCTS IN YOUR OCCUPATION?NO DATE ASKED : 03/14/2019 CAFFEINE CAFFEINE USE?YES 1 COFFEE DAILY ADVANCE DIRECTIVE ADVANCE DIRECTIVE DISCUSSED WITH PATIENT:YES HCP-LAUREL VALENCIA CHEONDOISM [id number] QUAKER MARITAL STATUS: . ALCOHOL SCREENING DID YOU HAVE A DRINK CONTAINING ALCOHOL IN THE PAST YEAR?NO POINTS0 INTERPRETATIONNEGATIVE OCCUPATION: DISABLED. SEXUAL HX HAD SEX IN THE LAST 12 MONTHS (VAGINAL, ORAL, OR ANAL)?YES WITHWOMEN ONLY USE PROTECTION?NO HAVE YOU EVER HAD AN STD?NO 08/25/17 0945 REVIEWED WITH PT. ADREVIEWED WITH PATIENT 05/03/18 1540 JSREVIEWED WITH PT 05/19/18 1120 BVREVIEWED WITH PT 06/03/18 1316 BVREVIEWED WITH PATIENT 07/06/18 1039 JSREVIEWED WITH PATIENT 10/20/18 0930 LASREVIEWED WITH PATIENT 01/25/19 0917 JS. HOSPITALIZATION/MAJOR DIAGNOSTIC PROCEDURE CHEST PAIN/DYSPNEA, R/O ND ([place]) 10/15 BACK SURGERY 01/2017 NECK AND LEFT SIDED PAIN AND WEAKNESS 08/2018 REVIEW OF SYSTEMS REVIEWED BY: PROVIDER: WILLIAM DYE . CONSTITUTIONAL: ANY CHANGE IN YOUR MEDICAL CONDITION? NO . CHILLS NO . FEVER NO . INFECTION: DO YOU HAVE NEW INFECTIONS? NO . DO YOU HAVE HISTORY OF MRSA? NO . MUSCULOSKELETAL: ANY NEW PATTERNS OF PAIN OR NUMBNESS? NO . GASTROENTEROLOGY: ANY NEW CHANGE IN BOWEL CONTROL? NO . GENITOURINARY: ANY NEW CHANGE IN BLADDER CONTROL? NO . IS THERE A CHANCE YOU COULD BE ? NO . HEMATOLOGY/LYMPH: DO YOU TAKE ANY BLOOD THINNERS? (FOR EXAMPLE- COUMADIN, PLAVIX, AGGRENOX, PLATEL, PRADAXA, OR XARELTO) NO . WHEN WAS YOUR LAST DOSE? DATE: TIME: . NEUROLOGY: HAVE YOU FALLEN IN THE PAST 12 MONTHS? NO . ANY NEW EXTREMITY NUMBNESS OR WEAKNESS? NO . CARDIOLOGY: DO YOU HAVE A PACEMAKER OR DEFIBRILLATOR? NO . RESPIRATORY: HAVE YOU BEEN SICK IN THE PAST WEEK? NO . FEVER NO . FLU LIKE SYMPTOMS? NO . COUGH NO . INTEGUMENTARY: DO YOU HAVE ANY RASHES OR OPEN SORES? NO . ALLERGIC/IMMUNO: ARE YOU ALLERGIC TO IV DYE? NO . ANY NEW ALLERGIES? NO . PSYCHIATRIC: DO YOU HAVE THOUGHTS OF HURTING YOURSELF OR SOMEONE ELSE? NO . ARE YOU ABUSED, NEGLECTED, OR IN AN UNSAFE ENVIRONMENT? NO . ENDOCRINOLOGY: ARE YOU DIABETIC? NO . OTHER: DO YOU NEED ANY PRESCRIPTIONS? NO . IF YES, PLEASE LIST: ____ . ANY NEW PROBLEMS WITH YOUR MEDICATIONS? NO . WHEN DID YOU LAST EAT? ____ . WHEN DID YOU LAST DRINK? ____ . WHAT DID YOU LAST DRINK? ____ . NAME OF PERSON DRIVING YOU HOME? ____ . DO YOU HAVE ANY OTHER QUESTIONS OR CONCERNS NO . VITAL SIGNS WT 229.4 LBS, HT 68 IN, BMI 34.88 INDEX, BP 163/81 MM HG, HR 79 /MIN, RR 18 /MIN, TEMP 98.1 F, OXYGEN SAT % 99%, NA INITIALS SC 09:39. EXAMINATION GENERAL EXAMINATION: GENERAL AWAKE,ALERT ,PLEASANT . PSYCH AFFECT NORMAL . LUNGS: LUNG KLINE ARE CLEAR TO AUSCULTATION BILATERALLY. GOOD MOVEMENT OF AIR . HEART: S1, S2 IN A REGULAR RATE AND RHYTHM. NO SIGNIFICANT MURMURS, RUBS OR GALLOPS NOTED . FOR BILAT. SIJ PALPATION: + FOR PAIN OVER L/S SPINE. + FOR PAIN OVER L/S PARASPINALS.SPECIFIC POINT TENDERNESS OVER LEFT SIJ. DIAGNOSTIC TESTS REVIEWED MRI L/S SPINE -2017. ASSESSMENTS SACROILIITIS, NOT ELSEWHERE CLASSIFIED - M46.1 (PRIMARY) TREATMENT SACROILIITIS, NOT ELSEWHERE CLASSIFIED NOTES: LEFT SIJ. PREVENTIVE MEDICINE PAIN CLINIC TEACHING: PROCEDURE TEACHING REVIEWED INFORMATION ON SACROILIAC JOINT INJECTION PROCEDURE WITH PATIENT. ALSO REVIEWED PRE-PROCEDURE INSTRUCTIONS. PATIENT VERBALIZED AN UNDERSTANDING. JANAE MARTINEZ 03/14/2019 10:34:00 AM > . PROCEDURE CODES FA211 ESTABILISHED PATIENT [facility] CHARGE DISPOSITION & COMMUNICATION FOLLOW UP POST (REASON: LEFT SIJ) ELECTRONICALLY SIGNED BY HARDIK COLUNGA ON 03/23/2019 AT 09:34 AM EST DISCLAIMER : THIS IS A VISIT SUMMARY EXTRACTED FROM THE [employer] CHART. IT IS NOT A COPY OF THE [employer] PROGRESS NOTE. ENE
== END ==
LOC: M PAIN 09:15
PROVIDERS: ATTEND Nurse Practitioner Family
DX: M46.1 Sacroiliitis, not elsewhere classified (principal); I10 Essential (primary) hypertension; G47.30 Sleep apnea, unspecified; Z86.59 Personal history of other mental and behavioral disorders; Z88.0 Allergy status to penicillin; Z79.899 Other long term (current) drug therapy

== ENCOUNTER → 2019-04-20 | Outpatient (CLI) | payer MEDICARE ==
[~2019-04-20] MED LIST changes: -MECL-68 PO; +MECL1TAB31 PO
[2019-04-20 15:59] LABS: HEMATOCRIT 39.4 % (42.0-52.0); HEMOGLOBIN 11.4 g/dl (13.5-17.5); MEAN CORPUSCULAR HEMOGLOBIN 23.8 pg (27.0-33.0); MEAN CORPUSCULAR HGB CONC 28.9 g/dl (32.0-36.5); MEAN CORPUSCULAR VOLUME 82.3 fl (80.0-96.0); PLATELET COUNT, AUTOMATED 297 10^3/uL (150-450); RED BLOOD COUNT 4.79 10^6/uL (4.30-6.10); WHITE BLOOD COUNT 8.7 10^3/uL (4.0-10.0)
[2019-04-20 16:49] LABS: BLOOD UREA NITROGEN 17 MG/DL (7-18); CREATININE FOR GFR 1.05 MG/DL (0.70-1.30); FERRITIN 38 NG/ML (26-388); FREE T4 0.97 NG/DL (0.76-1.46); GLOMERULAR FILTRATION RATE > 60.0 (>56); IRON (FE) 30 UG/DL (65-175); PERCENT SATURATION 9.5 % (19.7-50.0); TOTAL IRON BINDING CAPACITY 317 UG/DL (250-450)
[2019-04-25 14:07] LABS: ANCA-ATYPICAL <1:20 titer (Neg:<1:20); ANTI-SACCHAROMYCES CEREV. IgA <20.0 Units (0.0-24.9); CYTOPLASMIC NEUTROP AB ANCA-C <1:20 titer (Neg:<1:20); IGASUB2 123.2 mg/dL (73.2-301.2); IGASUB3 24.2 mg/dL (13.4-97.9); IgA SERUM (part of Subclasses) 152 mg/dL (90-386); PERINUCLEAR AB ANCA-P <1:20 titer (Neg:<1:20); TISSUE TRANSGLUTAMINASE IgA <2 U/mL (0-3); UNITSIGA FOR GLIADIN IGA 3 units (0-19); UNITSIGG FOR GLIADIN IGG 5 units (0-19)
== END ==
LOC: M LAB 15:20
PROVIDERS: ATTEND Internal Medicine Gastroenterology
DX: K62.5 Hemorrhage of anus and rectum (principal); Z79.899 Other long term (current) drug therapy

== ENCOUNTER → 2019-04-24 | Outpatient (REF) | payer MEDICARE ==
[2019-04-24 17:36] LABS: CLOSTRIDIUM DIFFICILE PCR NEGATIVE (NEGATIVE)
== END ==
LOC: M LAB REF 14:44
PROVIDERS: ATTEND Internal Medicine Gastroenterology
DX: K62.5 Hemorrhage of anus and rectum (principal)

== ENCOUNTER → 2019-05-02 | Outpatient (CLI) | payer MEDICARE ==
[~2019-05-02] MED LIST changes: +BUPIVACAINE HCL 0.25% 30 ML VIAL As Ordered ONE; +ISOVUE-M 300 61% 15ML VIAL (Q9967) As Ordered ONE; +LIDOCAINE 1% SDV INJ 30 ML VIAL As Ordered ONE; +TRIAMCINOLONE ACETONIDE SUSP 40 MG/ML VIAL (J3301) As Ordered ONE; +diazePAM 5 MG TAB As Ordered ONE; +oxyCODONE 5MG TAB As Ordered ONE
--- NOTE | 2019-05-02 17:26 | REP ---
C-ARM VIEWS RIGHT SACROILIAC JOINT: CLINICAL HISTORY: Pain. Two C-ARM views right sacroiliac joint are performed during injection by Dr. Rod. Needle is seen overlying the sacroiliac joint. 23 seconds of fluoroscopy time was utilized. Electronically Signed by Shailesh Buchanan MD 05/03/2019 10:27 P
--- NOTE | 2019-05-12 03:43 | ECWPNPC ---
PATIENT NAME: KIMBERLEY VALENCIA : 1965 GENDER: MALE VISIT DATE: 05/02/2019 DISCHARGE DATE: 05/02/19 1038 VISIT LOCKED DATE TIME: PHYSICIAN: OMA POWELL MD PHYSICIAN PAGER NO: TEXT CG [phone] RESOURCE: OMA POWELL MD REASON FOR APPOINTMENT 1. RIGHT SIJ HISTORY OF PRESENT ILLNESS HISTORY OF PRESENT ILLNESS: PAIN THE PATIENT DESCRIBES THE PAIN... FALL RISK SCREENING: SCREENING :NO FALLS REPORTED IN THE LAST YEAR CURRENT MEDICATIONS TAKING ARTIFICIAL TEARS 0.4 % SOLUTION 1 DROP INTO AFFECTED EYE NEEDED OPHTHALMIC ONCE A DAY, NOTES: 05/01/2019 AM TAKING NEXIUM 24HR 20 MG CAPSULE DELAYED RELEASE 1 CAPSULE ORALLY ONCE A DAY, NOTES: 05/02/2019 0400 TAKING TESTOSTERONE CYPIONATE 200 MG/ML OIL 0.8 ML INTRAMUSCULAR(DR KIERRA ELMORE) EVERY 10 DAYS, NOTES: 04/28/2019 TAKING RESTASIS 0.05 % EMULSION 1 DROP INTO AFFECTED EYE OPHTHALMIC TWICE A DAY, NOTES: 05/01/2019 AM TAKING AMLODIPINE BESYLATE 10 MG TABLET 1 TABLET ORALLY ONCE A DAY, NOTES: 05/02/2019399 TAKING VITAMIN D3 2000 UNIT CAPSULE 1 CAPSULE ORALLY ONCE A DAY, NOTES: 05/02/2019399 TAKING OXYCODONE-ACETAMINOPHEN 10-325 MG TABLET 1 TABLET NEEDED ORALLY EVERY 6 HRS, NOTES: 05/01/20192199 TAKING LISINOPRIL-HYDROCHLOROTHIAZIDE 20-25 MG TABLET 1 TABLET ORALLY ONCE A DAY, NOTES: 05/02/2019399 TAKING FERROUS SULFATE 325 (65 FE) MG TABLET 1 TABLET ORALLY ONCE A DAY, NOTES: 05/02/2019399 MEDICATION LIST REVIEWED AND RECONCILED WITH THE PATIENT PAST MEDICAL HISTORY HYPERTENSION BARRETS ESOPHAGUS SLEEP APNEA [place] WITH CPAP (PULM ASSOC) BACK PAIN - ([facility]) HYPOTESTOSTERONEMIA (Jermaine ELMORE) MAJOR DEPRESSION, SINGLE EPISODE (MANISH) ANXIETY OA (MULTIPLE LOCATIONS) ASCVD 10-YEAR RISK IS 5.3% IN 08/2016 OSCAR'S ESOPHAGUS: GASTRO IN [place] IBS ALLERGIES PENICILLIN (FOR ALLERGIES USE ONLY): FEET SWELLS - ALLERGY SURGICAL HISTORY TONSILLECTOMY CHILD BILATERAL CARPAL TUNNEL (FISH) 2009 EGD/COLONOSCOPY (KATHRYN IN [place]) 11/2011 LEFT ELBOW CUBITAL TUNNEL TRANSLATION (FISH) 2012 RIGHT CARPAL TUNNEL 07/05/13 COLO/EGD- KATHRYN-SYR- MILD ESOPHAGITIS 05/20 BACK SURGERY- DR DAMIAN FELIX 01/2017 HERNIA REPAIR 2018 FAMILY HISTORY FATHER: 70 YRS, PROSTATE CA AT AGE 65, DIAGNOSED WITH HYPERTENSION MOTHER: 76 YRS, DIABETES SIBLINGS: BROTHER CROHN'S SISTER THYROID DISEASE DAUGHTER(S): ALIVE, DAUGHTER MVA 1DAUGHTER(S) - HEALTHY. LIVER FAILURE. SOCIAL HISTORY GENERAL: TOBACCO USE ARE YOU A:NONSMOKER HIV / HEP-C SCREENING HIV TEST OFFERED TO PATIENT:YES DATE OFFERED:01/28/2017 TEST ACCEPTED:NO HEP-C TEST OFFERED TO PATIENT:NO REASON:PATIENT DECLINED OTHERS AT HOME: SPOUSE. EDUCATION LEVEL OF EDUCATION:HIGH SCHOOL DIET: REGULAR. LANGUAGE LANGUAGES SPOKEN:[place] DOMESTIC VIOLENCE DO YOU FEEL SAFE IN YOUR ENVIRONMENT?YES BMI CARE GOAL FOLLOW-UP ABOVE NORMAL BMI FOLLOW-UPLIFESTYLE EDUCATION REGARDING DIET RECREATIONAL DRUG USE DRUG USE?NO PATIENT DENIES ABUSE OR MISSUSED OF ANY MEDICATION. PATIENT DENIES USE OF ANY ILLEGAL SUBSTANCE INCLUDING MARIJUANA OR COCAINE. EXERCISE: NO REGULAR EXERCISE. LEARNING BARRIERS / SPECIAL NEEDS CHANGE FROM LAST VISIT?NO BARRIERS TO LEARNING?NO HEARING IMPAIRED?YES VISION IMPAIRED?NO COGNITIVELY IMPAIRED?NO :HEARING AIDES C/O INCREASED HEARING LOSS READINESS TO LEARN?YES LEARNING PREFERENCES?NO LEARNING CAPABILITIES PRESENT?YES EMOTIONAL BARRIERS?NO SPECIAL DEVICES?NO PHYSICAL THERAPIST ASSISTANT NEEDED?NO PAIN CLINIC PFS, CLERGY, PUBLIC HEALTH REFERRALS PFS REFERRAL NEEDED?NO CLERGY REFERRAL NEEDED?NO PUBLIC HEALTH REFERRAL NEEDED?NO WAS THE PROVIDER NOTIFIED OF ANY PERTINENT INFO?NO HAS THE PATIENT BEEN EDUCATED REGARDING HIS/HER PLAN OF CARE?YES HAS THE PATIENT BEEN EDUCATED REGARDING PAIN, THE RISK FOR PAIN, THE IMPORTANCE OF EFFECTIVE PAIN MANAGEMENT, AND THE PAIN ASSESSMENT PROCESS?YES LATEX QUESTIONNAIRE LATEX ALLERGY : HAVE YOU EVER DEVELOPED ANY TYPE OF REACTION AFTER HANDLING LATEX PRODUCTS SUCH RUBBER GLOVES, CONDOMS, DIAPHRAGMS, BALLOONS, SOCKS, OR UNDERWEAR?NO LATEX ALLERGY : HAVE YOU EVER DEVELOPED ANY TYPE OF REACTION DURING OR AFTER DENTAL APPOINTMENT, VAGINAL/RECTAL EXAMINATION, SURGICAL PROCEDURE, OR ANY OTHER EXPOSURE?NO LATEX RISK : HAVE YOU EVER HAD ANY DIFFICULTY BREATHING OR HIVES AFTER EATING OR HANDLING ANY FRUITS, OR VEGETABLES; SUCH KIWI, BANANAS, STONE FRUITS, OR CHESTNUTSNO LATEX RISK : DO YOU HAVE A PREVIOUS PERSONAL HISTORY OF MORE THAN NINE SURGERIES, SPINA BIFIDA, OR REPEATED CATHERIZATIONS? NO LATEX RISK : ARE YOU FREQUENTLY EXPOSED TO LATEX PRODUCTS IN YOUR OCCUPATION?NO DATE ASKED : 05/01/2019 CAFFEINE CAFFEINE USE?YES 1 COFFEE DAILY ADVANCE DIRECTIVE ADVANCE DIRECTIVE DISCUSSED WITH PATIENT:YES HCP-LAUREL VALENCIA RASTAFARI [id number] HOLINESS MARITAL STATUS: . ALCOHOL SCREENING DID YOU HAVE A DRINK CONTAINING ALCOHOL IN THE PAST YEAR?NO POINTS0 INTERPRETATIONNEGATIVE OCCUPATION: DISABLED. SEXUAL HX HAD SEX IN THE LAST 12 MONTHS (VAGINAL, ORAL, OR ANAL)?YES WITHWOMEN ONLY USE PROTECTION?NO HAVE YOU EVER HAD AN STD?NO 08/25/17 0945 REVIEWED WITH PT. ADREVIEWED WITH PATIENT 05/03/18 1540 JSREVIEWED WITH PT 05/19/18 1120 BVREVIEWED WITH PT 06/03/18 1316 BVREVIEWED WITH PATIENT 07/06/18 1039 JSREVIEWED WITH PATIENT 10/20/18 0930 LASREVIEWED WITH PATIENT 01/25/19 0917 JSPRE PROCEDURE PHONE CALL COMPLETED 05/01/2019 0937 NLJ. HOSPITALIZATION/MAJOR DIAGNOSTIC PROCEDURE CHEST PAIN/DYSPNEA, R/O SC ([place]) 10/15 BACK SURGERY 01/2017 NECK AND LEFT SIDED PAIN AND WEAKNESS 08/2018 REVIEW OF SYSTEMS REVIEWED BY: PROVIDER: . CONSTITUTIONAL: ANY CHANGE IN YOUR MEDICAL CONDITION? NO . CHILLS NO . FEVER NO . INFECTION: DO YOU HAVE NEW INFECTIONS? NO . DO YOU HAVE HISTORY OF MRSA? NO . MUSCULOSKELETAL: ANY NEW PATTERNS OF PAIN OR NUMBNESS? NO . GASTROENTEROLOGY: ANY NEW CHANGE IN BOWEL CONTROL? NO . GENITOURINARY: ANY NEW CHANGE IN BLADDER CONTROL? NO . IS THERE A CHANCE YOU COULD BE ? NO . HEMATOLOGY/LYMPH: DO YOU TAKE ANY BLOOD THINNERS? (FOR EXAMPLE- COUMADIN, PLAVIX, AGGRENOX, PLATEL, PRADAXA, OR XARELTO) NO . WHEN WAS YOUR LAST DOSE? DATE: TIME: . NEUROLOGY: HAVE YOU FALLEN IN THE PAST 12 MONTHS? NO . ANY NEW EXTREMITY NUMBNESS OR WEAKNESS? NO . CARDIOLOGY: DO YOU HAVE A PACEMAKER OR DEFIBRILLATOR? NO . RESPIRATORY: HAVE YOU BEEN SICK IN THE PAST WEEK? NO . FEVER NO . FLU LIKE SYMPTOMS? NO . COUGH NO . INTEGUMENTARY: DO YOU HAVE ANY RASHES OR OPEN SORES? NO . ALLERGIC/IMMUNO: ARE YOU ALLERGIC TO IV DYE? NO . ANY NEW ALLERGIES? NO . PSYCHIATRIC: DO YOU HAVE THOUGHTS OF HURTING YOURSELF OR SOMEONE ELSE? NO . ARE YOU ABUSED, NEGLECTED, OR IN AN UNSAFE ENVIRONMENT? NO . ENDOCRINOLOGY: ARE YOU DIABETIC? NO . OTHER: DO YOU NEED ANY PRESCRIPTIONS? NO . IF YES, PLEASE LIST: ____ . ANY NEW PROBLEMS WITH YOUR MEDICATIONS? NO . WHEN DID YOU LAST EAT? 05/01/2019 2200 . WHEN DID YOU LAST DRINK? 05/02/2019 0400 . WHAT DID YOU LAST DRINK? COFFEE (BLACK) . NAME OF PERSON DRIVING YOU HOME? PARMINDER . DO YOU HAVE ANY OTHER QUESTIONS OR CONCERNS NO . VITAL SIGNS WT 239.0 LBS, HT 68 IN, BMI 36.34 INDEX, BP 139/74 MM HG, HR 81 /MIN, RR 18 /MIN, TEMP 96.4 F, OXYGEN SAT % 97%, SAFE IN ENV? (Y/N) YES, NA INITIALS AW 0901, REVIEWED BY: ANNABEL. ASSESSMENTS SACROILIITIS, NOT ELSEWHERE CLASSIFIED - M46.1 (PRIMARY) TREATMENT SACROILIITIS, NOT ELSEWHERE CLASSIFIED [facility] FLUORO GUIDANCE (PAIN)[id number] PROCEDURES PN SI PRE PROCEDURE DIAGNOSIS SACROILIITIS, SACROILIAC JOINT DYSFUNCTION POST PROCEDURE DIAGNOSIS SACROILIITIS, SACROILIAC JOINT DYSFUNCTION PROCEDURE RIGHT SACROILIAC JOINT BLOCK SURGEON DR. OMA POWELL PATIENT ADMITTING REPRESENTATIVE NONE ANESTHESIA LOCAL PRE PROCEDURE NOTE PATIENT WITH HISTORY OF CHRONIC LOW BACK PAIN. I EVALUATED THE PATIENT AND REVIEWED THE CHART. I WENT OVER THE RISKS, ALTERNATIVES, AND BENEFITS ASSOCIATED WITH THIS PROCEDURE. THE PATIENT WOULD LIKE TO PROCEED AND GAVE CONSENT TO PERFORM THE PROCEDURE. THE PATIENT DENIES UNEXPLAINABLE WEIGHT LOSS, FEVER, CHILLS, OR NEW CHANGES IN URINARY OR BOWEL CONTROL DESCRIPTION OF PROCEDURE THE PATIENT WAS BROUGHT TO THE PROCEDURE ROOM AND PLACED IN THE PRONE POSITION. THE LUMBOSACRAL AREA WAS CLEANED WITH CHLORAPREP SOLUTION AND DRAPED ASEPTICALLY. THE PROCEDURE WAS DONE UNDER STERILE CONDITIONS. I CHECKED LATERALITY AND THE LEVEL WHERE THE PROCEDURE WAS GOING TO BE PERFORMED WITH THE PATIENT AND THE SUPPORTING STAFF AT THE MOMENT OF THE TIME OUT IN THE PROCEDURE ROOM. UNDER FLUOROSCOPIC GUIDANCE, TARGET POINT WAS SELECTED AT THE LOWER BORDER OF THE RIGHT SACROILIAC JOINT. TARGET POINT WAS SELECTED AFTER MEDIAL ROTATION AND TILT OF THE MAGNIFIER OF THE C-ARM. LIDOCAINE WAS USED TO NUMB THE SKIN AND SUBCUTANEOUS TISSUE BELOW IT. A SPINAL NEEDLE, 22-GAUGE, WAS ADVANCED UNDER FLUOROSCOPIC GUIDANCE AND FOLLOWING PATIENT FEEDBACK UNTIL THE TARGET AREA WAS TOUCHED. THE POSITION OF THE NEEDLE WAS VERIFIED WITH AP AND LATERAL VIEWS. AFTER PROPER POSITION OF THE NEEDLE WAS ACHIEVED, ISOVUE M DYE 30%, 0.25 ML, WAS INJECTED SHOWING SPREAD OF THE DYE. THEN, A SOLUTION OF 30 MG OF KENALOG WAS INJECTED IN RIGHT JOINT WITH 3 ML OF BUPIVACAINE 0.125%. THERE WAS NO EVIDENCE OF BLOOD, PARESTHESIA OR CEREBROSPINAL FLUID DURING THE PROCEDURE. THE PATIENT WAS SENT TO THE RECOVERY ROOM. THE PATIENT WAS MOVING THE EXTREMITIES AND DOING WELL. THERE WAS NO COMPLICATION DURING THE PROCEDURE. FLUOROSCOPY TIME WAS 23 SECONDS POST PROCEDURE NOTE THE PATIENT WILL BE SEEN IN A FOLLOW UP IN THE NEXT FEW WEEKS. I AM LOOKING FOR LONG LASTING PAIN RELIEF WITH THIS INJECTION. DEPENDING ON THE SACROILIAC JOINT BLOCK RESULTS, I MAY CONSIDER DOING A LUMBAR EPIDURAL STEROID INJECTION IN THE FUTURE FOR THE PATIENT. INSTRUCTIONS WERE GIVEN, QUESTIONS WERE ANSWERED, AND THE PATIENT EXPRESSED UNDERSTANDING AND AGREED WITH THE PLAN. I, MARIE UNDERWOOD, DOCUMENTED THE ABOVE INFORMATION ACTING A SCRIBE FOR DR. POWELL. I HAVE REVIEWED THE ABOVE DOCUMENT, WRITTEN BY MARIE LOPEZ AND I VERIFY THAT IT IS ACCURATE. PROCEDURE CODES 26262 INJECT SACROILIAC JOINT, MODIFIERS: RT 6045F RADXPS IN END [id number] PXD DISPOSITION & COMMUNICATION FOLLOW UP 3 WEEKS ELECTRONICALLY SIGNED BY OMA POWELL MD, MD ON 05/11/2019 AT 05:28 PM EST DISCLAIMER : THIS IS A VISIT SUMMARY EXTRACTED FROM THE [employer] CHART. IT IS NOT A COPY OF THE [employer] PROGRESS NOTE. MTDD
== END ==
LOC: M PAIN 09:00
PROVIDERS: ATTEND Anesthesiology
DX: M46.1 Sacroiliitis, not elsewhere classified (principal); I10 Essential (primary) hypertension; G47.30 Sleep apnea, unspecified; Z86.59 Personal history of other mental and behavioral disorders; Z88.0 Allergy status to penicillin; Z79.899 Other long term (current) drug therapy
CPT/HCPCS: G0260; J3301; Q9967

== ENCOUNTER → 2019-05-19 | Outpatient (CLI) | payer MEDICARE ==
[~2019-05-19] MED LIST changes: -BUPIVACAINE HCL 0.25% 30 ML VIAL As Ordered ONE; -ISOVUE-M 300 61% 15ML VIAL (Q9967) As Ordered ONE; -LIDOCAINE 1% SDV INJ 30 ML VIAL As Ordered ONE; -TRIAMCINOLONE ACETONIDE SUSP 40 MG/ML VIAL (J3301) As Ordered ONE; +VITA30004 PO; -diazePAM 5 MG TAB As Ordered ONE; -oxyCODONE 5MG TAB As Ordered ONE
--- NOTE | 2019-06-06 04:29 | ECWPNPC ---
PATIENT NAME: KIMBERLEY VALENCIA : 1965 GENDER: MALE VISIT DATE: 05/19/2019 DISCHARGE DATE: 05/19/19 1046 VISIT LOCKED DATE TIME: PHYSICIAN: WILLIAM FREEMAN PHYSICIAN PAGER NO: TEXT [phone] RESOURCE: WILLIAM FREEMAN REASON FOR APPOINTMENT 1. POST SIJ HISTORY OF PRESENT ILLNESS HISTORY OF PRESENT ILLNESS: HERE FOR POST PROCEDURE FOLLOW-UP. HAD RIGHT SIJ ON 05/02/2019. REPORTED IMPROVEMENT IN PAIN UP UNTIL A FEW DAYS AGO. REPORTS HE HAS BEEN HAVING NEW ONSET OF RIGHT HIP AND BUTTOCK PAIN TIMES ONE MONTH THAT EXTENDS INTO HIS RIGHT LEG PERIODICALLY. HISTORY OF LUMBAR SURGERY IN 2017. RATING PAIN LEVEL A 3-7/10 VAS. REPORTS NIGHTTIME AWAKENINGS DUE TO PAIN. REVIEWED MRI AND DISCUSSED TREATMENT OPTIONS. PAIN THE PATIENT DESCRIBES THE PAIN... FALL RISK SCREENING: SCREENING :NO FALLS REPORTED IN THE LAST YEAR CURRENT MEDICATIONS TAKING ARTIFICIAL TEARS 0.4 % SOLUTION 1 DROP INTO AFFECTED EYE NEEDED OPHTHALMIC ONCE A DAY TAKING NEXIUM 24HR 20 MG CAPSULE DELAYED RELEASE 1 CAPSULE ORALLY ONCE A DAY TAKING TESTOSTERONE CYPIONATE 200 MG/ML OIL 0.8 ML INTRAMUSCULAR(DR KIERRA ELMORE) EVERY 10 DAYS TAKING RESTASIS 0.05 % EMULSION 1 DROP INTO AFFECTED EYE OPHTHALMIC TWICE A DAY TAKING AMLODIPINE BESYLATE 10 MG TABLET 1 TABLET ORALLY ONCE A DAY TAKING VITAMIN D3 2000 UNIT CAPSULE 1 CAPSULE ORALLY ONCE A DAY TAKING OXYCODONE-ACETAMINOPHEN 10-325 MG TABLET 1 TABLET NEEDED ORALLY EVERY 6 HRS TAKING LISINOPRIL-HYDROCHLOROTHIAZIDE 20-25 MG TABLET 1 TABLET ORALLY ONCE A DAY TAKING FERROUS SULFATE 325 (65 FE) MG TABLET 1 TABLET ORALLY ONCE A DAY MEDICATION LIST REVIEWED AND RECONCILED WITH THE PATIENT PAST MEDICAL HISTORY HYPERTENSION BARRETS ESOPHAGUS SLEEP APNEA TX WITH CPAP ([facility]ULM [facility]) BACK PAIN - ([facility]) HYPOTESTOSTERONEMIA (Jermaine ELMORE) MAJOR DEPRESSION, SINGLE EPISODE (MANISH) ANXIETY OA (MULTIPLE LOCATIONS) ASCVD 10-YEAR RISK IS 5.3% IN 08/2016 OSCAR'S ESOPHAGUS: GASTRO IN [place] IBS ALLERGIES PENICILLIN (FOR ALLERGIES USE ONLY): FEET SWELLS - ALLERGY SURGICAL HISTORY TONSILLECTOMY CHILD BILATERAL CARPAL TUNNEL (RAMÍREZ) 2009 EGD/COLONOSCOPY ([facility] IN [place]) 11/2011 LEFT ELBOW CUBITAL TUNNEL TRANSLATION (RAMÍREZ) 2012 RIGHT CARPAL TUNNEL 07/05/13 COLO/EGD- KATHRYN-[place]- MILD ESOPHAGITIS 05/20 BACK SURGERY- DR DAMIAN FELIX 01/2017 HERNIA REPAIR 2018 FAMILY HISTORY FATHER: 70 YRS, PROSTATE CA AT AGE 65, DIAGNOSED WITH HYPERTENSION MOTHER: 76 YRS, DIABETES SIBLINGS: BROTHER CROHN'S SISTER THYROID DISEASE DAUGHTER(S): ALIVE, DAUGHTER MVA 1DAUGHTER(S) - HEALTHY. LIVER FAILURE. SOCIAL HISTORY GENERAL: TOBACCO USE ARE YOU A:NONSMOKER HIV / HEP-C SCREENING HIV TEST OFFERED TO PATIENT:YES DATE OFFERED:01/28/2017 TEST ACCEPTED:NO HEP-C TEST OFFERED TO PATIENT:NO REASON:PATIENT DECLINED OTHERS AT HOME: SPOUSE. EDUCATION LEVEL OF EDUCATION:HIGH SCHOOL DIET: REGULAR. LANGUAGE LANGUAGES SPOKEN:PORTUGUESE DOMESTIC VIOLENCE DO YOU FEEL SAFE IN YOUR ENVIRONMENT?YES BMI CARE GOAL FOLLOW-UP ABOVE NORMAL BMI FOLLOW-UPLIFESTYLE EDUCATION REGARDING DIET RECREATIONAL DRUG USE DRUG USE?NO PATIENT DENIES ABUSE OR MISSUSED OF ANY MEDICATION. PATIENT DENIES USE OF ANY ILLEGAL SUBSTANCE INCLUDING MARIJUANA OR COCAINE. EXERCISE: NO REGULAR EXERCISE. LEARNING BARRIERS / SPECIAL NEEDS CHANGE FROM LAST VISIT?NO BARRIERS TO LEARNING?NO HEARING IMPAIRED?YES VISION IMPAIRED?NO COGNITIVELY IMPAIRED?NO :HEARING AIDES C/O INCREASED HEARING LOSS READINESS TO LEARN?YES LEARNING PREFERENCES?NO LEARNING CAPABILITIES PRESENT?YES EMOTIONAL BARRIERS?NO SPECIAL DEVICES?NO LIBRARIAN SPECIAL LIBRARY NEEDED?NO PAIN CLINIC PFS, CLERGY, PUBLIC HEALTH REFERRALS PFS REFERRAL NEEDED?NO CLERGY REFERRAL NEEDED?NO PUBLIC HEALTH REFERRAL NEEDED?NO WAS THE PROVIDER NOTIFIED OF ANY PERTINENT INFO?NO HAS THE PATIENT BEEN EDUCATED REGARDING HIS/HER PLAN OF CARE?YES HAS THE PATIENT BEEN EDUCATED REGARDING PAIN, THE RISK FOR PAIN, THE IMPORTANCE OF EFFECTIVE PAIN MANAGEMENT, AND THE PAIN ASSESSMENT PROCESS?YES LATEX QUESTIONNAIRE LATEX ALLERGY : HAVE YOU EVER DEVELOPED ANY TYPE OF REACTION AFTER HANDLING LATEX PRODUCTS SUCH RUBBER GLOVES, CONDOMS, DIAPHRAGMS, BALLOONS, SOCKS, OR UNDERWEAR?NO LATEX ALLERGY : HAVE YOU EVER DEVELOPED ANY TYPE OF REACTION DURING OR AFTER DENTAL APPOINTMENT, VAGINAL/RECTAL EXAMINATION, SURGICAL PROCEDURE, OR ANY OTHER EXPOSURE?NO LATEX RISK : HAVE YOU EVER HAD ANY DIFFICULTY BREATHING OR HIVES AFTER EATING OR HANDLING ANY FRUITS, OR VEGETABLES; SUCH KIWI, BANANAS, STONE FRUITS, OR CHESTNUTSNO LATEX RISK : DO YOU HAVE A PREVIOUS PERSONAL HISTORY OF MORE THAN NINE SURGERIES, SPINA BIFIDA, OR REPEATED CATHERIZATIONS? NO LATEX RISK : ARE YOU FREQUENTLY EXPOSED TO LATEX PRODUCTS IN YOUR OCCUPATION?NO DATE ASKED : 05/01/2019 CAFFEINE CAFFEINE USE?YES 1 COFFEE DAILY ADVANCE DIRECTIVE ADVANCE DIRECTIVE DISCUSSED WITH PATIENT:YES HCP-LAUREL VALENCIA FAITH [id number] CHURCH MARITAL STATUS: . ALCOHOL SCREENING DID YOU HAVE A DRINK CONTAINING ALCOHOL IN THE PAST YEAR?NO POINTS0 INTERPRETATIONNEGATIVE OCCUPATION: DISABLED. SEXUAL HX HAD SEX IN THE LAST 12 MONTHS (VAGINAL, ORAL, OR ANAL)?YES WITHWOMEN ONLY USE PROTECTION?NO HAVE YOU EVER HAD AN STD?NO 08/25/17 0945 REVIEWED WITH PT. ADREVIEWED WITH PATIENT 05/03/18 1540 JSREVIEWED WITH PT 05/19/18 1120 BVREVIEWED WITH PT 06/03/18 1316 BVREVIEWED WITH PATIENT 07/06/18 1039 JSREVIEWED WITH PATIENT 10/20/18 0930 LASREVIEWED WITH PATIENT 01/25/19 0917 JSPRE PROCEDURE PHONE CALL COMPLETED 05/01/2019 0937 NLJREVIEWED WITH PATIENT 05/19/2019 1004 JS. HOSPITALIZATION/MAJOR DIAGNOSTIC PROCEDURE CHEST PAIN/DYSPNEA, R/O LA (MELBER) 10/15 BACK SURGERY 01/2017 NECK AND LEFT SIDED PAIN AND WEAKNESS 08/2018 REVIEW OF SYSTEMS REVIEWED BY: PROVIDER: WILLIAM DYE . CONSTITUTIONAL: ANY CHANGE IN YOUR MEDICAL CONDITION? NO . CHILLS NO . FEVER NO . INFECTION: DO YOU HAVE NEW INFECTIONS? NO . DO YOU HAVE HISTORY OF MRSA? NO . MUSCULOSKELETAL: ANY NEW PATTERNS OF PAIN OR NUMBNESS? NO . GASTROENTEROLOGY: ANY NEW CHANGE IN BOWEL CONTROL? NO . GENITOURINARY: ANY NEW CHANGE IN BLADDER CONTROL? NO . IS THERE A CHANCE YOU COULD BE ? NO . HEMATOLOGY/LYMPH: DO YOU TAKE ANY BLOOD THINNERS? (FOR EXAMPLE- COUMADIN, PLAVIX, AGGRENOX, PLATEL, PRADAXA, OR XARELTO) NO . WHEN WAS YOUR LAST DOSE? DATE: TIME: . NEUROLOGY: HAVE YOU FALLEN IN THE PAST 12 MONTHS? NO . ANY NEW EXTREMITY NUMBNESS OR WEAKNESS? NO . CARDIOLOGY: DO YOU HAVE A PACEMAKER OR DEFIBRILLATOR? NO . RESPIRATORY: HAVE YOU BEEN SICK IN THE PAST WEEK? NO . FEVER NO . FLU LIKE SYMPTOMS? NO . COUGH NO . INTEGUMENTARY: DO YOU HAVE ANY RASHES OR OPEN SORES? NO . ALLERGIC/IMMUNO: ARE YOU ALLERGIC TO IV DYE? NO . ANY NEW ALLERGIES? NO . PSYCHIATRIC: DO YOU HAVE THOUGHTS OF HURTING YOURSELF OR SOMEONE ELSE? NO . ARE YOU ABUSED, NEGLECTED, OR IN AN UNSAFE ENVIRONMENT? NO . ENDOCRINOLOGY: ARE YOU DIABETIC? NO . OTHER: DO YOU NEED ANY PRESCRIPTIONS? YES . IF YES, PLEASE LIST: ____PERCOCET . ANY NEW PROBLEMS WITH YOUR MEDICATIONS? NO . WHEN DID YOU LAST EAT? ____ . WHEN DID YOU LAST DRINK? ____ . WHAT DID YOU LAST DRINK? ____ . NAME OF PERSON DRIVING YOU HOME? ____ . DO YOU HAVE ANY OTHER QUESTIONS OR CONCERNS NO . VITAL SIGNS WT 226.6 LBS, HT 68 IN, BMI 34.45 INDEX, BP 152/85 MM HG, HR 60 /MIN, RR 18 /MIN, TEMP 98.0 F, OXYGEN SAT % 98%, SAFE IN ENV? (Y/N) YES, NA INITIALS AW 0958, REVIEWED BY: ARTURO. EXAMINATION GENERAL EXAMINATION: GENERAL AWAKE,ALERT ,PLEASANT . PSYCH AFFECT NORMAL . LUNGS: LUNG KLINE ARE CLEAR TO AUSCULTATION BILATERALLY. GOOD MOVEMENT OF AIR . HEART: S1, S2 IN A REGULAR RATE AND RHYTHM. NO SIGNIFICANT MURMURS, RUBS OR GALLOPS NOTED . LUMBAR:PALPATION: + FOR PAIN OVER L/S SPINE. + FOR PAIN OVER L/S PARASPINALS SLE: POSITIVE OVER LEFT LEG AT 45 DEGREES. ASSESSMENTS PROTRUSION OF LUMBAR INTERVERTEBRAL DISC - M51.26 (PRIMARY) TREATMENT PROTRUSION OF LUMBAR INTERVERTEBRAL DISC REFILL OXYCODONE-ACETAMINOPHEN TABLET, 10-325 MG, 1 TABLET NEEDED, ORALLY, EVERY 6 HRS MDD4, 30 DAYS, 120, REFILLS 0 NOTES: [facility] EPDURALISTOP REGISTRY REVIEWED AND DEMONSTRATES COMPLLIANCE, [facility] NARCOTIC AGREEMENT WAS REVIEWED AND SIGNED TODAY BY THE PATIENT. SEE ATTACHED DOCUMENT FOR FULL DETAILS; SPECIFIC ISSUES WERE REVIEWED: 1) KEEP PAIN MEDS IN THEIR ORIGINAL BOTTLES AND ANY WEEKLY PLANNERS ARE TO BE BROUGHT TO THE PAIN CENTER AT EVERY VISIT. 2) THE PATIENT IS NOT TO INCREASE DOSING OR TIMING OF THEIR PAIN MEDICATION WITHOUT SPECIFIC DIRECTION OF THEIR PAIN CENTERPROVIDER (NOT ER OR OTHER PROVIDERS). 3) ALL PAIN MEDS ARE TO BE KEPT SECURED, IN A LOCKED BOX. 4) NO PAIN MEDS ARE TO BE SHARED WITH ANY OTHER PERSON FOR ANY REASON. 5) NO PAIN MEDS MAY BE TAKEN FROM ANY FRIENDS OR RELATIVES FOR ANY REASON 6) NO MEDS OR SUBSTANCES WHICH ARE NOT LEGAL ARE TO BE USED- NO MARIJUANA, NO COCAINE, AMPHETAMINES, HEROIN, OR OTHERS ARE EVER TO BE USED. 7)URINE TESTING IS DONE TO ACCOUNT FOR MEDS AND SUBSTANCES BEING TAKEN AND WILL BE DONE RANDOMLY., RISKS OF NARCOTIC/OPIOD MEDICATIONS INCLUDES BUT IS NOT LIMITED TO RISK OF DEPENDANCE/DEVELOPMENT OF ADDICTION, MOOD DISTURBANCE AND DEPRESSION, OSTEOPOROSIS, HORMONAL AND LABIDAL CHANGES, RESPIRATORY DEPRESSION AND . PATIENT IS ADVISED NOT TO DRIVE OR DRINK ALCOHOL WHILE ON THESE MEDICATIONS. PREVENTIVE MEDICINE PAIN CLINIC TEACHING: PROCEDURE TEACHING REVIEWED INFORMATION ON CAUDAL EPIDURAL PROCEDURE WITH PATIENT. ALSO REVIEWED PRE-PROCEDURE INSTRUCTIONS. PATIENT VERBALIZED AN UNDERSTANDING. JANAE MARTINEZ 05/19/2019 3:45:14 PM > . PROCEDURE CODES FA211 ESTABILISHED PATIENT [facility] CHARGE DISPOSITION & COMMUNICATION FOLLOW UP POST (REASON: CAUDAL EPDURAL ) ELECTRONICALLY SIGNED BY HARDIK COLUNGA ON 06/05/2019 AT 04:31 PM EST DISCLAIMER : THIS IS A VISIT SUMMARY EXTRACTED FROM THE [employer] CHART. IT IS NOT A COPY OF THE [employer] PROGRESS NOTE. ENE
== END ==
LOC: M PAIN 09:30
PROVIDERS: ATTEND Nurse Practitioner Family
DX: M51.26 Other intervertebral disc displacement, lumbar region (principal)

== ENCOUNTER → 2019-05-22 | Outpatient (REF) | payer MEDICARE | LOC: M LAB REF 12:19 | PROVIDERS: ATTEND Physician Assistant Medical | DX: L03.114 Cellulitis of left upper limb (principal) ==

== ENCOUNTER 2019-06-05 11:06 | Day surgery (SDC) | payer MEDICARE ==
[~2019-06-05] VITALS: Ht 175.3 cm; Wt 106.1 kg
[~2019-06-05 11:06] MED LIST changes: +LIDOCAINE 2% INJ 100 MG/5 ML SDV (FOR ANES.) As Ordered ONE; +NS 1,000 ML IV ONE; +propofoL 200 MG/20 ML VIAL As Ordered ONE
[2019-06-05] MEDS ORDERED: fentaNYL 100 MCG/2 ML INJECTION (J3010) As Ordered ONE (11:57)
[2019-06-05] MEDS ORDERED: propofoL 200 MG/20 ML VIAL As Ordered ONE (12:18)
--- NOTE | 2019-06-05 12:48 | ROOR ---
Patient Name: Tyler Burnett Procedure Date: 06/05/2019 11:56 AM Date of : 1965 Age: 53 Room: [facility] Gender: Male Note Status: Finalized Procedure: Upper GI endoscopy Indications: Epigastric abdominal pain, Dyspepsia Providers: Rigoberto Vasquez MD Referring MD: Serafin Keane Requesting Provider: Medicines: Monitored Anesthesia Care Complications: No immediate complications. Procedure: Pre-Anesthesia Assessment: - Prior to the procedure, a History and Physical was performed, and patient medications and allergies were reviewed. The patient is competent. The risks and benefits of the procedure and the sedation options and risks were discussed with the patient. All questions were answered and informed consent was obtained. Patient identification and proposed procedure were verified by the physician, the nurse and the anesthesiologist in the procedure room. Mental Status Examination: alert and oriented. Airway Examination: normal oropharyngeal airway and neck mobility. Respiratory Examination: clear to auscultation. CV Examination: normal. Prophylactic Antibiotics: The patient does not require prophylactic antibiotics. Prior Anticoagulants: The patient has taken no previous anticoagulant or antiplatelet agents. ASA Grade Assessment: III - A patient with severe systemic disease. After reviewing the risks and benefits, the patient was deemed in satisfactory condition to undergo the procedure. The anesthesia plan was to use monitored anesthesia care (MAC). Immediately prior to administration of medications, the patient was re-assessed for adequacy to receive sedatives. The heart rate, respiratory rate, oxygen saturations, blood pressure, adequacy of pulmonary ventilation, and response to care were monitored throughout the procedure. The physical status of the patient was re-assessed after the procedure. The Endoscope was introduced through the mouth, and advanced to the second part of duodenum. The upper GI endoscopy was accomplished without difficulty. The patient tolerated the procedure well. Findings: A small hiatal hernia was present. The Z-line was regular and was found 40 cm from the incisors. Patchy mildly erythematous mucosa without bleeding was found in the gastric antrum. The duodenal bulb, second portion of the duodenum, third portion of the duodenum, fourth portion of the duodenum and examined duodenum were normal. Biopsies were taken with a cold forceps for histology. Normal mucosa was found in the jejunum. Impression: - Small hiatal hernia. - Z-line regular, 40 cm from the incisors. - Erythematous mucosa in the antrum. - Normal duodenal bulb, second portion of the duodenum, third portion of the duodenum, fourth portion of the duodenum and examined duodenum. Biopsied. - Normal mucosa was found in the jejunum. Recommendation: - Patient has a contact number available for emergencies. The signs and symptoms of potential delayed complications were discussed with the patient. Return to normal activities tomorrow. Written discharge instructions were provided to the patient. - Resume previous diet. - Continue present medications. - Await pathology results. - Follow an antireflux regimen. - Telephone GI clinic for pathology results in 2 weeks. - Return to GI clinic if persistent symptoms or new symptoms. - Return to primary care physician. Rigoberto Vasquez MD Rigoberto Vasquez MD 06/05/2019 12:47:55 PM Electronically signed by Rigoberto Vasquez MD Number of Addenda: 0 Note Initiated On: 06/05/2019 11:56 AM Estimated Blood Loss: Estimated blood loss was minimal.
--- NOTE | 2019-06-05 12:52 | ROOR ---
Patient Name: Tyler Burnett Procedure Date: 06/05/2019 11:57 AM Date of : 1965 Age: 53 Room: [facility] Gender: Male Note Status: Finalized Procedure: Colonoscopy Indications: Chronic diarrhea, Suspected Crohn's disease of the small bowel and colon Providers: Rigoberto Vasquez MD Referring MD: Alejandra Barber MD Requesting Provider: Medicines: Monitored Anesthesia Care Complications: No immediate complications. Procedure: Pre-Anesthesia Assessment: - Prior to the procedure, a History and Physical was performed, and patient medications and allergies were reviewed. The patient is competent. The risks and benefits of the procedure and the sedation options and risks were discussed with the patient. All questions were answered and informed consent was obtained. Patient identification and proposed procedure were verified by the physician, the nurse and the anesthesiologist in the procedure room. Mental Status Examination: alert and oriented. Airway Examination: normal oropharyngeal airway and neck mobility. Respiratory Examination: clear to auscultation. CV Examination: normal. Prophylactic Antibiotics: The patient does not require prophylactic antibiotics. Prior Anticoagulants: The patient has taken no previous anticoagulant or antiplatelet agents. ASA Grade Assessment: II - A patient with mild systemic disease. After reviewing the risks and benefits, the patient was deemed in satisfactory condition to undergo the procedure. The anesthesia plan was to use monitored anesthesia care (MAC). Immediately prior to administration of medications, the patient was re-assessed for adequacy to receive sedatives. The heart rate, respiratory rate, oxygen saturations, blood pressure, adequacy of pulmonary ventilation, and response to care were monitored throughout the procedure. The physical status of the patient was re-assessed after the procedure. The Colonoscope was introduced through the anus and advanced to the terminal ileum, with identification of the appendiceal orifice and IC valve. The colonoscopy was performed without difficulty. The patient tolerated the procedure well. The quality of the bowel preparation was good. The terminal ileum, ileocecal valve, appendiceal orifice, and rectum were photographed. Scope insertion time was 2 minutes. Scope withdrawal time was 9 minutes. The total duration of the procedure was 12 minutes. Findings: The perianal and digital rectal examinations were normal. The terminal ileum appeared normal. Biopsies were taken with a cold forceps for histology. Verification of patient identification for the specimen was done by the physician and nurse using the patient's name, date and medical record number. Estimated blood loss was minimal. Two sessile polyps were found in the recto-sigmoid colon. The polyps were 3 to 4 mm in size. These polyps were removed with a cold biopsy forceps. Resection and retrieval were complete. Normal mucosa was found in the entire colon. Biopsies for histology were taken with a cold forceps from the right colon, left colon and rectosigmoid colon for evaluation of microscopic colitis. Multiple small and large-mouthed diverticula were found from sigmoid to descending colon. There was no evidence of diverticular bleeding. Non-bleeding external and internal hemorrhoids were found during retroflexion. The hemorrhoids were large. Impression: - The examined portion of the ileum was normal. Biopsied. - Two 3 to 4 mm polyps at the recto-sigmoid colon, removed with a cold biopsy forceps. Resected and retrieved. - Normal mucosa in the entire examined colon. Biopsied. - Moderate diverticulosis from sigmoid to descending colon. There was no evidence of diverticular bleeding. - Non-bleeding external and internal hemorrhoids. Recommendation: - Patient has a contact number available for emergencies. The signs and symptoms of potential delayed complications were discussed with the patient. Return to normal activities tomorrow. Written discharge instructions were provided to the patient. - High fiber diet. - Continue present medications. - Await pathology results. - Repeat colonoscopy in 5 years for surveillance based on pathology results. - Telephone GI clinic for pathology results in 2 weeks. - Return to GI clinic if persistent symptoms or new symptoms. - Return to primary care physician. Rigoberto Vasquez MD Rigoberto Vasquez MD 06/05/2019 12:51:35 PM Electronically signed by Rigoberto Vasquez MD Number of Addenda: 0 Note Initiated On: 06/05/2019 11:57 AM Estimated Blood Loss: Estimated blood loss was minimal.
[2019-06-05 13:05] VITALS: BP 156/83
== END 2019-06-05 13:30 | disposition home or self-care (01) ==
LOC: M OPP 11:06
PROVIDERS: ATTEND Internal Medicine Gastroenterology
DX: K64.8 Other hemorrhoids (principal); K63.5 Polyp of colon; K52.9 Noninfective gastroenteritis and colitis, unspecified; K57.30 Diverticulosis of large intestine without perforation or abscess without bleeding; K44.9 Diaphragmatic hernia without obstruction or gangrene; K31.89 Other diseases of stomach and duodenum; R10.13 Epigastric pain; G47.30 Sleep apnea, unspecified; Z79.891 Long term (current) use of opiate analgesic; Z79.899 Other long term (current) drug therapy; Z88.0 Allergy status to penicillin; Z88.8 Allergy status to other drugs, medicaments and biological substances
CPT/HCPCS: 43239; 45380; 88305; J3010

== ENCOUNTER → 2019-06-29 | Outpatient (CLI) | payer MEDICARE ==
[~2019-06-29] MED LIST changes: +ISOVUE-M 300 61% 15ML VIAL (Q9967) As Ordered ONE; +LIDOCAINE 1% SDV INJ 30 ML VIAL As Ordered ONE; -LIDOCAINE 2% INJ 100 MG/5 ML SDV (FOR ANES.) As Ordered ONE; -NS 1,000 ML IV ONE; +diazePAM 5 MG TAB As Ordered ONE; +methylPREDNISolone SUSP 40 MG/ML (DEPO-medrol) VIAL (J1030) As Ordered ONE; +oxyCODONE 5MG TAB As Ordered ONE; -propofoL 200 MG/20 ML VIAL As Ordered ONE
--- NOTE | 2019-06-29 14:36 | REP ---
C-ARM VIEWS SACRUM AND COCCYX: CLINICAL HISTORY: Pain. Three C-arm views of the sacrum and coccyx performed during injection performed by Dr. Rod. Catheter is seen overlying the sacrum and coccyx. 51 seconds of fluoroscopy time is utilized. Electronically Signed by Shailesh Buchanan MD 06/29/2019 04:59 P
--- NOTE | 2019-07-12 03:18 | ECWPNPC ---
PATIENT NAME: KIMBERLEY VALENCIA : 1965 GENDER: MALE VISIT DATE: 06/29/2019 DISCHARGE DATE: 06/29/19 1122 VISIT LOCKED DATE TIME: PHYSICIAN: OMA POWELL MD PHYSICIAN PAGER NO: TEXT TO [phone] RESOURCE: OMA POWELL MD REASON FOR APPOINTMENT 1. CAUDAL EPIDURAL HISTORY OF PRESENT ILLNESS HISTORY OF PRESENT ILLNESS: PAIN THE PATIENT DESCRIBES THE PAIN... FALL RISK SCREENING: SCREENING :NO FALLS REPORTED IN THE LAST YEAR CURRENT MEDICATIONS TAKING ARTIFICIAL TEARS 0.4 % SOLUTION 1 DROP INTO AFFECTED EYE NEEDED OPHTHALMIC ONCE A DAY, NOTES: 06/28/19 TAKING NEXIUM 24HR 20 MG CAPSULE DELAYED RELEASE 1 CAPSULE ORALLY ONCE A DAY, NOTES: 06/28/19 TAKING TESTOSTERONE CYPIONATE 200 MG/ML OIL 0.8 ML INTRAMUSCULAR(DR KIERRA ELMORE) EVERY 10 DAYS, NOTES: 06/26/19 TAKING RESTASIS 0.05 % EMULSION 1 DROP INTO AFFECTED EYE OPHTHALMIC TWICE A DAY, NOTES: 06/28/19 TAKING AMLODIPINE BESYLATE 10 MG TABLET 1 TABLET ORALLY ONCE A DAY, NOTES: 06/28/19 TAKING VITAMIN D3 2000 UNIT CAPSULE 1 CAPSULE ORALLY ONCE A DAY, NOTES: 06/28/19 TAKING LISINOPRIL-HYDROCHLOROTHIAZIDE 20-25 MG TABLET 1 TABLET ORALLY ONCE A DAY, NOTES: 06/28/19 TAKING FERROUS SULFATE 325 (65 FE) MG TABLET 1 TABLET ORALLY ONCE A DAY, NOTES: 06/28/19 TAKING OXYCODONE-ACETAMINOPHEN 10-325 MG TABLET 1 TABLET NEEDED ORALLY EVERY 6 HRS MDD4, NOTES: 06/28/19 MEDICATION LIST REVIEWED AND RECONCILED WITH THE PATIENT PAST MEDICAL HISTORY HYPERTENSION BARRETS ESOPHAGUS SLEEP APNEA [place] WITH CPAP (PULM ASSOC) BACK PAIN - ([facility]) HYPOTESTOSTERONEMIA (Jermaine ELMORE) MAJOR DEPRESSION, SINGLE EPISODE (MANISH) ANXIETY OA (MULTIPLE LOCATIONS) ASCVD 10-YEAR RISK IS 5.3% IN 08/2016 OSCAR'S ESOPHAGUS: GASTRO IN [place] IBS ALLERGIES PENICILLIN (FOR ALLERGIES USE ONLY): FEET SWELLS - ALLERGY SURGICAL HISTORY TONSILLECTOMY CHILD BILATERAL CARPAL TUNNEL (FISH) 2009 EGD/COLONOSCOPY (KATHRYN IN [place]) 11/2011 LEFT ELBOW CUBITAL TUNNEL TRANSLATION (FISH) 2012 RIGHT CARPAL TUNNEL 07/05/13 COLO/EGD- KATHRYN-SYR- MILD ESOPHAGITIS 05/20 BACK SURGERY- DR DAMIAN FELIX 01/2017 HERNIA REPAIR 2018 FAMILY HISTORY FATHER: 70 YRS, PROSTATE CA AT AGE 65, DIAGNOSED WITH HYPERTENSION MOTHER: 76 YRS, DIABETES SIBLINGS: BROTHER CROHN'S SISTER THYROID DISEASE DAUGHTER(S): ALIVE, DAUGHTER MVA 1DAUGHTER(S) - HEALTHY. LIVER FAILURE. SOCIAL HISTORY GENERAL: TOBACCO USE ARE YOU A:NONSMOKER HIV / HEP-C SCREENING HIV TEST OFFERED TO PATIENT:YES DATE OFFERED:01/28/2017 TEST ACCEPTED:NO HEP-C TEST OFFERED TO PATIENT:NO REASON:PATIENT DECLINED OTHERS AT HOME: SPOUSE. EDUCATION LEVEL OF EDUCATION:HIGH SCHOOL DIET: REGULAR. LANGUAGE LANGUAGES SPOKEN:ESTONIAN DOMESTIC VIOLENCE DO YOU FEEL SAFE IN YOUR ENVIRONMENT?YES NEW PATIENT PAIN DIARY PATIENT DESCRIBES PAIN :ACHING, HAVE IT ALL THE TIME, STABBING, SHOOTING FROM 0-10, WHAT LEVEL IS YOUR PAIN TODAY?6 PRECIPITATING FACTORS ACTIVITY ALLEVIATING FACTORS LYING DOWN, PAIN MEDS IMPACT ON FUNCTION YES BMI CARE GOAL FOLLOW-UP ABOVE NORMAL BMI FOLLOW-UPLIFESTYLE EDUCATION REGARDING DIET RECREATIONAL DRUG USE DRUG USE?NO PATIENT DENIES ABUSE OR MISSUSED OF ANY MEDICATION. PATIENT DENIES USE OF ANY ILLEGAL SUBSTANCE INCLUDING MARIJUANA OR COCAINE. EXERCISE: NO REGULAR EXERCISE. LEARNING BARRIERS / SPECIAL NEEDS CHANGE FROM LAST VISIT?NO BARRIERS TO LEARNING?NO HEARING IMPAIRED?YES VISION IMPAIRED?NO COGNITIVELY IMPAIRED?NO :HEARING AIDES C/O INCREASED HEARING LOSS READINESS TO LEARN?YES LEARNING PREFERENCES?NO LEARNING CAPABILITIES PRESENT?YES EMOTIONAL BARRIERS?NO SPECIAL DEVICES?NO ASSISTANT SCIENTIST NEEDED?NO PAIN CLINIC PFS, CLERGY, PUBLIC HEALTH REFERRALS PFS REFERRAL NEEDED?NO CLERGY REFERRAL NEEDED?NO PUBLIC HEALTH REFERRAL NEEDED?NO WAS THE PROVIDER NOTIFIED OF ANY PERTINENT INFO?NO HAS THE PATIENT BEEN EDUCATED REGARDING HIS/HER PLAN OF CARE?YES HAS THE PATIENT BEEN EDUCATED REGARDING PAIN, THE RISK FOR PAIN, THE IMPORTANCE OF EFFECTIVE PAIN MANAGEMENT, AND THE PAIN ASSESSMENT PROCESS?YES LATEX QUESTIONNAIRE LATEX ALLERGY : HAVE YOU EVER DEVELOPED ANY TYPE OF REACTION AFTER HANDLING LATEX PRODUCTS SUCH RUBBER GLOVES, CONDOMS, DIAPHRAGMS, BALLOONS, SOCKS, OR UNDERWEAR?NO LATEX ALLERGY : HAVE YOU EVER DEVELOPED ANY TYPE OF REACTION DURING OR AFTER DENTAL APPOINTMENT, VAGINAL/RECTAL EXAMINATION, SURGICAL PROCEDURE, OR ANY OTHER EXPOSURE?NO DATE ASKED : 05/01/2019 LATEX RISK : HAVE YOU EVER HAD ANY DIFFICULTY BREATHING OR HIVES AFTER EATING OR HANDLING ANY FRUITS, OR VEGETABLES; SUCH KIWI, BANANAS, STONE FRUITS, OR CHESTNUTSNO LATEX RISK : DO YOU HAVE A PREVIOUS PERSONAL HISTORY OF MORE THAN NINE SURGERIES, SPINA BIFIDA, OR REPEATED CATHERIZATIONS? NO LATEX RISK : ARE YOU FREQUENTLY EXPOSED TO LATEX PRODUCTS IN YOUR OCCUPATION?NO CAFFEINE CAFFEINE USE?YES 1 COFFEE DAILY ADVANCE DIRECTIVE ADVANCE DIRECTIVE DISCUSSED WITH PATIENT:YES HCP-LAUREL VALENCIA CATHOLIC [id number] DENOMINATIONAL MARITAL STATUS: . ALCOHOL SCREENING DID YOU HAVE A DRINK CONTAINING ALCOHOL IN THE PAST YEAR?NO POINTS0 INTERPRETATIONNEGATIVE OCCUPATION: DISABLED. SEXUAL HX HAD SEX IN THE LAST 12 MONTHS (VAGINAL, ORAL, OR ANAL)?YES WITHWOMEN ONLY USE PROTECTION?NO HAVE YOU EVER HAD AN STD?NO 08/25/17 0945 REVIEWED WITH PT. ADREVIEWED WITH PATIENT 05/03/18 1540 JSREVIEWED WITH PT 05/19/18 1120 BVREVIEWED WITH PT 06/03/18 1316 BVREVIEWED WITH PATIENT 07/06/18 1039 JSREVIEWED WITH PATIENT 10/20/18 0930 LASREVIEWED WITH PATIENT 01/25/19 0917 JSPRE PROCEDURE PHONE CALL COMPLETED 05/01/2019 0937 NLJREVIEWED WITH PATIENT 05/19/2019 1004 JS. HOSPITALIZATION/MAJOR DIAGNOSTIC PROCEDURE CHEST PAIN/DYSPNEA, R/O [place] ([facility]) 10/15 BACK SURGERY 01/2017 NECK AND LEFT SIDED PAIN AND WEAKNESS 08/2018 REVIEW OF SYSTEMS REVIEWED BY: PROVIDER: . CONSTITUTIONAL: ANY CHANGE IN YOUR MEDICAL CONDITION? NO . CHILLS NO . FEVER NO . INFECTION: DO YOU HAVE NEW INFECTIONS? NO . DO YOU HAVE HISTORY OF MRSA? NO . MUSCULOSKELETAL: ANY NEW PATTERNS OF PAIN OR NUMBNESS? NO . GASTROENTEROLOGY: ANY NEW CHANGE IN BOWEL CONTROL? NO . GENITOURINARY: ANY NEW CHANGE IN BLADDER CONTROL? NO . IS THERE A CHANCE YOU COULD BE ? NO . HEMATOLOGY/LYMPH: DO YOU TAKE ANY BLOOD THINNERS? (FOR EXAMPLE- COUMADIN, PLAVIX, AGGRENOX, PLATEL, PRADAXA, OR XARELTO) NO . WHEN WAS YOUR LAST DOSE? DATE: TIME: . NEUROLOGY: HAVE YOU FALLEN IN THE PAST 12 MONTHS? NO . ANY NEW EXTREMITY NUMBNESS OR WEAKNESS? NO . CARDIOLOGY: DO YOU HAVE A PACEMAKER OR DEFIBRILLATOR? NO . RESPIRATORY: HAVE YOU BEEN SICK IN THE PAST WEEK? NO . FEVER NO . FLU LIKE SYMPTOMS? NO . COUGH NO . INTEGUMENTARY: DO YOU HAVE ANY RASHES OR OPEN SORES? YES, TO ARMS AND FOREHEAD FROM YARDWORK . ALLERGIC/IMMUNO: ARE YOU ALLERGIC TO IV DYE? NO . ANY NEW ALLERGIES? NO . PSYCHIATRIC: DO YOU HAVE THOUGHTS OF HURTING YOURSELF OR SOMEONE ELSE? NO . ARE YOU ABUSED, NEGLECTED, OR IN AN UNSAFE ENVIRONMENT? NO . ENDOCRINOLOGY: ARE YOU DIABETIC? NO . OTHER: DO YOU NEED ANY PRESCRIPTIONS? NO . IF YES, PLEASE LIST: ____ . ANY NEW PROBLEMS WITH YOUR MEDICATIONS? NO . WHEN DID YOU LAST EAT? 06/28/191799 . WHEN DID YOU LAST DRINK? 06/28/191799 . WHAT DID YOU LAST DRINK? WATER . NAME OF PERSON DRIVING YOU HOME? . DO YOU HAVE ANY OTHER QUESTIONS OR CONCERNS NO . VITAL SIGNS WT 226.0 LBS, HT 68 IN, BMI 34.36 INDEX, BP 157/93 MM HG, HR 99 /MIN, RR 18 /MIN, TEMP 98.3 F, OXYGEN SAT % 99%, SAFE IN ENV? (Y/N) Y, NA INITIALS AW 0934, REVIEWED BY: EM. ASSESSMENTS INTERVERTEBRAL DISC DISORDERS WITH RADICULOPATHY, LUMBOSACRAL REGION - M51.17 (PRIMARY) PROCEDURES PN CAUDAL EPIDURALS PRE PROCEDURE DIAGNOSIS LUMBAR POST LAMINECTOMY PAIN SYNDROME, LUMBAR SPINAL STENOSIS POST PROCEDURE DIAGNOSIS LUMBAR POST LAMINECTOMY PAIN SYNDROME, LUMBAR SPINAL STENOSIS PROCEDURE CAUDAL EPIDURAL STEROID INJECTION UNDER FLUOROSCOPIC GUIDANCE. SURGEON DR. OMA POWELL REVERSAL PRINT INSPECTOR NONE ANESTHESIA LOCAL PRE PROCEDURE NOTE THE PATIENT HAS HISTORY OF CHRONIC LOW BACK PAIN. I EVALUATED THE PATIENT AND REVIEWED THE CHART. I WENT OVER THE RISKS, ALTERNATIVES, AND BENEFITS ASSOCIATED WITH THIS PROCEDURE. THE PATIENT WOULD LIKE TO PROCEED AND GIVE CONSENT TO PERFORMED THE PROCEDURE. THE PATIENT DENIES UNEXPLAINABLE WEIGHT LOSS, FEVER, CHILLS, OR NEW CHANGES IN URINARY OR BOWEL CONTROL. DESCRIPTION OF PROCEDURE THE PATIENT WAS BROUGHT TO THE PROCEDURE ROOM AND PLACED IN THE PRONE POSITION. THE LUMBOSACRAL AREA WAS CLEANED WITH BETADINE SOLUTION AND DRAPED ASEPTICALLY. THE PROCEDURE WAS DONE UNDER STERILE CONDITIONS. I CHECKED LATERALITY AND THE LEVEL WHERE THE PROCEDURE WAS GOING TO BE PERFORMED WITH THE PATIENT AND THE SUPPORTING STAFF AT THE MOMENT OF THE TIME OUT IN THE PROCEDURE ROOM. UNDER FLUOROSCOPIC GUIDANCE, THE TARGET POINT WAS SELECTED AT THE EPIDURAL SPACE BELOW THE SACROCOCCYGEAL LIGAMENT. LIDOCAINE 0.5% WAS USE TO NUMB THE SKIN AND THE SUBCUTANEOUS TISSUE BELOW IT. AN EPIDURAL TUOHY NEEDLE, 17-GAUGE, WAS ADVANCED UNDER FLUOROSCOPIC GUIDANCE AND FOLLOWING PATIENT FEEDBACK UNTIL THE EPIDURAL SPACE WAS REACHED 6 CM DEEP INTO THE SKIN BY THE LOSS OF RESISTANCE TECHNIQUE. I ADVANCED A 19-GAUGE EPIMED CATHETER THROUGH A 16-GAUGE NEEDLE TO THE RIGHT OF L5-S1. ISOVUE M DYE 30%, 0.25 ML, WAS INJECTED SHOWING ADEQUATE SPREAD OF THE DYE. THEN, A SOLUTION OF 6 ML OF NORMAL SALINE WITH DEPO-MEDROL 60 MG WAS INJECTED SLOWLY FOLLOWING THE PATIENT FEEDBACK. THERE WAS NO EVIDENCE OF BLOOD, PARESTHESIA OR CEREBROSPINAL FLUID DURING THE PROCEDURE. THE PATIENT WAS SENT TO THE RECOVERY ROOM. THE PATIENT WAS MOVING THE EXTREMITIES AND DOING WELL. THERE WAS NO COMPLICATION DURING THE PROCEDURE. FLUOROSCOPY TIME WAS 51 SECONDS POST PROCEDURE NOTE THE PATIENT WILL BE SEEN IN A FOLLOW UP IN THE NEXT FEW WEEKS. I AM LOOKING FOR LONG LASTING PAIN RELIEF FOR THE PATIENT WITH THIS INJECTION. DEPENDING ON THIS INJECTION'S RESULTS, I MAY CONSIDER A L4, L5, S1 TRANSFORAMINAL EPIDURAL IN THE FUTURE. INSTRUCTIONS WERE GIVEN, QUESTIONS WERE ANSWERED, AND THE PATIENT EXPRESSED UNDERSTANDING AND AGREES WITH THE PLAN. I, MARIE UNDERWOOD, DOCUMENTED THE ABOVE INFORMATION ACTING A SCRIBE FOR DR. POWELL. I HAVE REVIEWED THE ABOVE DOCUMENT, WRITTEN BY MARIE LOPEZ AND I VERIFY THAT IT IS ACCURATE. DIAGNOSTIC IMAGING [facility] FLUORO GUIDE SPINE INJECTION (PAIN)[id number] PROCEDURE CODES 37439 LUMBAR/SACRAL W/ IMAGING 6045F RADXPS IN END [id number] PXD DISPOSITION & COMMUNICATION FOLLOW UP 3 WEEKS ELECTRONICALLY SIGNED BY OMA POWELL MD, MD ON 07/11/2019 AT 04:50 PM EDT DISCLAIMER : THIS IS A VISIT SUMMARY EXTRACTED FROM THE [email or web address] CHART. IT IS NOT A COPY OF THE [email or web address] PROGRESS NOTE. MTDD
== END ==
LOC: M PAIN 09:30
PROVIDERS: ATTEND Anesthesiology
DX: M51.17 Intervertebral disc disorders with radiculopathy, lumbosacral region (principal); I10 Essential (primary) hypertension; G47.30 Sleep apnea, unspecified; Z86.59 Personal history of other mental and behavioral disorders; Z88.0 Allergy status to penicillin; Z79.899 Other long term (current) drug therapy
CPT/HCPCS: 62323; J1030; Q9967

== ENCOUNTER → 2019-07-13 | Outpatient (CLI) | payer MEDICARE ==
[~2019-07-13] MED LIST changes: -ISOVUE-M 300 61% 15ML VIAL (Q9967) As Ordered ONE; -LIDOCAINE 1% SDV INJ 30 ML VIAL As Ordered ONE; -diazePAM 5 MG TAB As Ordered ONE; -methylPREDNISolone SUSP 40 MG/ML (DEPO-medrol) VIAL (J1030) As Ordered ONE; -oxyCODONE 5MG TAB As Ordered ONE
--- NOTE | 2019-07-17 10:29 | ECWPNPC ---
PATIENT NAME: KIMBERLEY VALENCIA : 1965 GENDER: MALE VISIT DATE: 07/13/2019 DISCHARGE DATE: 07/13/19 1423 VISIT LOCKED DATE TIME: PHYSICIAN: WILLIAM FREEMAN PHYSICIAN PAGER NO: TEXT CW [phone] RESOURCE: WILLIAM FREEMAN REASON FOR APPOINTMENT 1. POST CAUDAL EPIDURAL AND HISTORY OF PRESENT ILLNESS HISTORY OF PRESENT ILLNESS: VIDEO TELEMED VISIT TODAY VIA ZOOM DUE TO COVID 19 CRISIS. HAD CAUDAL EPIDURAL STEROID INJECTION ON 06/29/2019. REPORTING 5-7 DAYS OF IMPROVEMENT IN PAIN POST PROCEDURE, BUT PAIN RETURNED TO BASELINE WHEN HE RESUMED NORMAL ACTIVITY. IS STATES HE WAS PUSHING A SNOWBLOWER 5 DAYS AGO IN PAIN IN HIS LOWER BACK BECAME UNBEARABLE THE FOLLOWING DAY. PAIN IS ACROSS LOW BACK AND RADIATES INTO RIGHT LEG. RATING PAIN INTENSITY 4/10 VAS. REPORTING DIFFICULTY IN SLEEP DUE TO PAIN. USING OXYCODONE UP TO 5 TABLETS PER DAY WITH MINIMAL IMPROVEMENT IN PAIN. HAS RESPONDED WELL TO MUSCLE RELAXANTS IN THE PAST. DISCUSSED MEDICATION AND TREATMENT OPTIONS. PAIN THE PATIENT DESCRIBES THE PAIN... FALL RISK SCREENING: SCREENING :NO FALLS REPORTED IN THE LAST YEAR CURRENT MEDICATIONS TAKING ARTIFICIAL TEARS 0.4 % SOLUTION 1 DROP INTO AFFECTED EYE NEEDED OPHTHALMIC ONCE A DAY TAKING NEXIUM 24HR 20 MG CAPSULE DELAYED RELEASE 1 CAPSULE ORALLY ONCE A DAY TAKING TESTOSTERONE CYPIONATE 200 MG/ML OIL 0.8 ML INTRAMUSCULAR(DR KIERRA ELMORE) EVERY 10 DAYS TAKING RESTASIS 0.05 % EMULSION 1 DROP INTO AFFECTED EYE OPHTHALMIC TWICE A DAY TAKING AMLODIPINE BESYLATE 10 MG TABLET 1 TABLET ORALLY ONCE A DAY TAKING VITAMIN D3 2000 UNIT CAPSULE 1 CAPSULE ORALLY ONCE A DAY TAKING LISINOPRIL-HYDROCHLOROTHIAZIDE 20-25 MG TABLET 1 TABLET ORALLY ONCE A DAY TAKING FERROUS SULFATE 325 (65 FE) MG TABLET 1 TABLET ORALLY ONCE A DAY TAKING OXYCODONE-ACETAMINOPHEN 10-325 MG TABLET 1 TABLET NEEDED ORALLY EVERY 6 HRS MDD4 TAKING CYMBALTA 30 MG CAPSULE DELAYED RELEASE PARTICLES 1 CAPSULE ORALLY BID MEDICATION LIST REVIEWED AND RECONCILED WITH THE PATIENT PAST MEDICAL HISTORY HYPERTENSION BARRETS ESOPHAGUS SLEEP APNEA [place] WITH CPAP (PULM ASSOC) BACK PAIN - ([facility]) HYPOTESTOSTERONEMIA (Jermaine ELMORE) MAJOR DEPRESSION, SINGLE EPISODE (MANISH) ANXIETY OA (MULTIPLE LOCATIONS) ASCVD 10-YEAR RISK IS 5.3% IN 08/2016 OSCAR'S ESOPHAGUS: GASTRO IN [place] IBS ARTHRITIS ALLERGIES PENICILLIN (FOR ALLERGIES USE ONLY): FEET SWELLS - ALLERGY SURGICAL HISTORY TONSILLECTOMY CHILD BILATERAL CARPAL TUNNEL (FISH) 2009 EGD/COLONOSCOPY (KATHRYN IN [place]) 11/2011 LEFT ELBOW CUBITAL TUNNEL TRANSLATION (FISH) 2012 RIGHT CARPAL TUNNEL 07/05/13 COLO/EGD- KATHRYN-SYR- MILD ESOPHAGITIS 05/20 BACK SURGERY- DR SALGADO SOS 01/2017 HERNIA REPAIR 2018 FAMILY HISTORY FATHER: 70 YRS, PROSTATE CA AT AGE 65, DIAGNOSED WITH HYPERTENSION MOTHER: 76 YRS, DIABETES SIBLINGS: BROTHER CROHN'S SISTER THYROID DISEASE DAUGHTER(S): ALIVE, DAUGHTER MVA 1DAUGHTER(S) - HEALTHY. LIVER FAILURE. SOCIAL HISTORY GENERAL: TOBACCO USE ARE YOU A:NONSMOKER HIV / HEP-C SCREENING HIV TEST OFFERED TO PATIENT:YES DATE OFFERED:01/28/2017 TEST ACCEPTED:NO HEP-C TEST OFFERED TO PATIENT:NO REASON:PATIENT DECLINED OTHERS AT HOME: SPOUSE. EDUCATION LEVEL OF EDUCATION:HIGH SCHOOL DIET: REGULAR. LANGUAGE LANGUAGES SPOKEN:NEPALI DOMESTIC VIOLENCE DO YOU FEEL SAFE IN YOUR ENVIRONMENT?YES NEW PATIENT PAIN DIARY TODAY'S VISITNOTES 07/13/2019 PATIENT DESCRIBES PAIN :ACHING, HAVE IT ALL THE TIME, STABBING, THROBBING FROM 0-10, WHAT LEVEL IS YOUR PAIN TODAY?4 BMI CARE GOAL FOLLOW-UP ABOVE NORMAL BMI FOLLOW-UPLIFESTYLE EDUCATION REGARDING DIET RECREATIONAL DRUG USE DRUG USE?NO PATIENT DENIES ABUSE OR MISSUSED OF ANY MEDICATION. PATIENT DENIES USE OF ANY ILLEGAL SUBSTANCE INCLUDING MARIJUANA OR COCAINE. EXERCISE: NO REGULAR EXERCISE. LEARNING BARRIERS / SPECIAL NEEDS CHANGE FROM LAST VISIT?NO BARRIERS TO LEARNING?NO HEARING IMPAIRED?YES VISION IMPAIRED?NO COGNITIVELY IMPAIRED?NO :HEARING AIDES C/O INCREASED HEARING LOSS READINESS TO LEARN?YES LEARNING PREFERENCES?NO LEARNING CAPABILITIES PRESENT?YES EMOTIONAL BARRIERS?NO SPECIAL DEVICES?NO SURGERY AID NEEDED?NO PAIN CLINIC PFS, CLERGY, PUBLIC HEALTH REFERRALS PFS REFERRAL NEEDED?NO CLERGY REFERRAL NEEDED?NO PUBLIC HEALTH REFERRAL NEEDED?NO WAS THE PROVIDER NOTIFIED OF ANY PERTINENT INFO?NO HAS THE PATIENT BEEN EDUCATED REGARDING HIS/HER PLAN OF CARE?YES HAS THE PATIENT BEEN EDUCATED REGARDING PAIN, THE RISK FOR PAIN, THE IMPORTANCE OF EFFECTIVE PAIN MANAGEMENT, AND THE PAIN ASSESSMENT PROCESS?YES LATEX QUESTIONNAIRE LATEX ALLERGY : HAVE YOU EVER DEVELOPED ANY TYPE OF REACTION AFTER HANDLING LATEX PRODUCTS SUCH RUBBER GLOVES, CONDOMS, DIAPHRAGMS, BALLOONS, SOCKS, OR UNDERWEAR?NO LATEX ALLERGY : HAVE YOU EVER DEVELOPED ANY TYPE OF REACTION DURING OR AFTER DENTAL APPOINTMENT, VAGINAL/RECTAL EXAMINATION, SURGICAL PROCEDURE, OR ANY OTHER EXPOSURE?NO LATEX RISK : HAVE YOU EVER HAD ANY DIFFICULTY BREATHING OR HIVES AFTER EATING OR HANDLING ANY FRUITS, OR VEGETABLES; SUCH KIWI, BANANAS, STONE FRUITS, OR CHESTNUTSNO LATEX RISK : DO YOU HAVE A PREVIOUS PERSONAL HISTORY OF MORE THAN NINE SURGERIES, SPINA BIFIDA, OR REPEATED CATHERIZATIONS? NO LATEX RISK : ARE YOU FREQUENTLY EXPOSED TO LATEX PRODUCTS IN YOUR OCCUPATION?NO DATE ASKED : 05/01/2019 CAFFEINE CAFFEINE USE?YES 1 COFFEE DAILY ADVANCE DIRECTIVE ADVANCE DIRECTIVE DISCUSSED WITH PATIENT:YES HCP-LAUREL VALENCIA MANDAEISM [id number] ANGLICAN MARITAL STATUS: . ALCOHOL SCREENING DID YOU HAVE A DRINK CONTAINING ALCOHOL IN THE PAST YEAR?NO POINTS0 INTERPRETATIONNEGATIVE OCCUPATION: DISABLED. SEXUAL HX HAD SEX IN THE LAST 12 MONTHS (VAGINAL, ORAL, OR ANAL)?YES WITHWOMEN ONLY USE PROTECTION?NO HAVE YOU EVER HAD AN STD?NO HOSPITALIZATION/MAJOR DIAGNOSTIC PROCEDURE CHEST PAIN/DYSPNEA, [facility] [place] [facility] 10/15 BACK SURGERY 01/2017 NECK AND LEFT SIDED PAIN AND WEAKNESS 08/2018 REVIEW OF SYSTEMS REVIEWED BY: PROVIDER: WILLIAM DYE . CONSTITUTIONAL: ANY CHANGE IN YOUR MEDICAL CONDITION? NO . CHILLS NO . FEVER NO . INFECTION: DO YOU HAVE NEW INFECTIONS? YES, THINKS HE MAY HAVE AN INFECTION - SWOLLEN LYMPH NODE TO THE LEFT, HAS MD APPOINTMENT TOMORROW . DO YOU HAVE HISTORY OF MRSA? NO . MUSCULOSKELETAL: ANY NEW PATTERNS OF PAIN OR NUMBNESS? YES, INCREASED PAIN TO THE RIGHT LOW BACK AND LEG, HAVING TO USE A WALKER, CAN'T TOLERATE ACTIVITY AT THIS TIME - JERKED FORWARD BY TRIPPING OVER DOG AND PAIN HAS BEEN EXCRUTIATING SINCE . GASTROENTEROLOGY: ANY NEW CHANGE IN BOWEL CONTROL? NO . GENITOURINARY: ANY NEW CHANGE IN BLADDER CONTROL? NO . IS THERE A CHANCE YOU COULD BE ? NO . HEMATOLOGY/LYMPH: DO YOU TAKE ANY BLOOD THINNERS? (FOR EXAMPLE- COUMADIN, PLAVIX, AGGRENOX, PLATEL, PRADAXA, OR XARELTO) NO . WHEN WAS YOUR LAST DOSE? DATE: TIME: . NEUROLOGY: HAVE YOU FALLEN IN THE PAST 12 MONTHS? NO . ANY NEW EXTREMITY NUMBNESS OR WEAKNESS? YES, STATES NUMBNESS/WEAKNESS TO RIGHT LEG . CARDIOLOGY: DO YOU HAVE A PACEMAKER OR DEFIBRILLATOR? NO . RESPIRATORY: HAVE YOU BEEN SICK IN THE PAST WEEK? NO . FEVER NO . FLU LIKE SYMPTOMS? NO . COUGH NO . INTEGUMENTARY: DO YOU HAVE ANY RASHES OR OPEN SORES? YES, SOME SORES TO BILATERAL ARMS . ALLERGIC/IMMUNO: ARE YOU ALLERGIC TO IV DYE? NO . ANY NEW ALLERGIES? NO . PSYCHIATRIC: DO YOU HAVE THOUGHTS OF HURTING YOURSELF OR SOMEONE ELSE? NO . ARE YOU ABUSED, NEGLECTED, OR IN AN UNSAFE ENVIRONMENT? NO . ENDOCRINOLOGY: ARE YOU DIABETIC? NO . OTHER: DO YOU NEED ANY PRESCRIPTIONS? NO . IF YES, PLEASE LIST: ____ . ANY NEW PROBLEMS WITH YOUR MEDICATIONS? NO . WHEN DID YOU LAST EAT? ____ . WHEN DID YOU LAST DRINK? ____ . WHAT DID YOU LAST DRINK? ____ . NAME OF PERSON DRIVING YOU HOME? ____ . DO YOU HAVE ANY OTHER QUESTIONS OR CONCERNS NO . EXAMINATION GENERAL EXAMINATION: GENERALNO ACUTE DISTRESS, WELL NOURISHED AND HYDRATED. PSYCHAPPROPRIATE MOOD AND AFFECT . FACE:UNREMARKABLE. LUMBAR:PATIENT REPORTING PAIN UPPER LUMBAR TO MID LUMBAR FACET REGION, RIGHT GREATER THAN LEFT. PATIENT DEMONSTRATES INCREASED PAIN DURING VIDEO WITH EXTENSION OF SPINE. . DIAGNOSTIC TESTS REVIEWED MRI L/S SPINE 2017. ASSESSMENTS INTERVERTEBRAL DISC DISORDERS WITH RADICULOPATHY, LUMBOSACRAL REGION - M51.17 (PRIMARY) TREATMENT INTERVERTEBRAL DISC DISORDERS WITH RADICULOPATHY, LUMBOSACRAL REGION REFILL OXYCODONE-ACETAMINOPHEN TABLET, 10-325 MG, 1 TABLET NEEDED, ORALLY, EVERY 6 HRS MDD4, 30 DAYS, 120, REFILLS 0 START CYCLOBENZAPRINE HCL TABLET, 10 MG, 1 TAB, ORALLY, Q8H PRN MUSCLE SPASM PAIN, 30 DAY(S), 45, REFILLS 1 NOTES: BILATERAL L3-4, L4-5 LFBT, ISTOP REGISTRY REVIEWED AND DEMONSTRATES COMPLLIANCE. (REF # ) BRINGS IN MEDICATIONS WHICH IS APPROPRIATE FOR WHAT WAS DISPENSED. RECENT URINE TOXICOLOGY REVIEWED. NO UNAUTHORIZED MEDICATIONS. NO ILLICIT SUBSTANCES AND PRESCRIBED MEDICATIONS WERE PRESENT. PLEASE GET UTOX AT NEXT F/U W WILLIAM. OTHERS NOTES: VITALS NOT OBTAINED THIS IS A VIRTUAL VISIT. DISPOSITION & COMMUNICATION FOLLOW UP POST (REASON: BILATERAL L3-4, L4-5 LFBT) ELECTRONICALLY SIGNED BY HARDIK COLUNGA ON 07/13/2019 AT 02:11 PM EDT ADDENDUM: 07/13/2019 03:01 PM JANAE MARTINEZ > REVIEWED INFORMATION ON THERAPEUTIC LUMBAR FACET BLOCK PROCEDURE WITH PATIENT. ALSO REVIEWED PRE-PROCEDURE INSTRUCTIONS. PATIENT VERBALIZED AN UNDERSTANDING. INSTRUCTIONS MAILED TO PATIENT. DISCLAIMER : THIS IS A VISIT SUMMARY EXTRACTED FROM THE [employer] CHART. IT IS NOT A COPY OF THE [employer] PROGRESS NOTE. EDISOND
== END ==
LOC: M PAIN 13:00 → M TMPAIN 13:00
PROVIDERS: ATTEND Nurse Practitioner Family
DX: M51.17 Intervertebral disc disorders with radiculopathy, lumbosacral region (principal); I10 Essential (primary) hypertension; G47.30 Sleep apnea, unspecified; Z86.59 Personal history of other mental and behavioral disorders; Z88.0 Allergy status to penicillin; Z79.899 Other long term (current) drug therapy

== ENCOUNTER → 2019-08-11 | Outpatient (CLI) | payer MEDICARE | LOC: M LABSMTC 09:48 | PROVIDERS: ATTEND Anesthesiology | DX: Z11.59 Encounter for screening for other viral diseases (principal); Z20.828 Contact with and (suspected) exposure to other viral communicable diseases ==

== ENCOUNTER → 2019-08-14 | Outpatient (CLI) | payer MEDICARE ==
[~2019-08-14] MED LIST changes: +BUPIVACAINE HCL 0.25% 30ML VIAL As Ordered ONE; +ISOVUE-M 300 61% 15ML VIAL As Ordered ONE; +LIDOCAINE 1% SDV 30ML VIAL As Ordered ONE; +dexameTHASONE 10MG/1ML VIAL PRES.FREE (J1100 PER 1MG) As Ordered ONE; +diazePAM 5 MG TAB As Ordered ONE; +oxyCODONE 5MG TAB As Ordered ONE
--- NOTE | 2019-08-14 14:11 | REP ---
C-ARM VIEWS LOWER LUMBAR SPINE: CLINICAL: Pain. Two C-arm views of the lower lumbar spine performed during bilateral facet injection performed by Dr. Rod. Two needles are seen along the lower lumbar facets bilaterally. 41 seconds of fluoroscopy time utilized. Electronically Signed by Shailesh Buchanan MD 08/14/2019 02:15 P
--- NOTE | 2019-08-19 03:08 | ECWPNPC ---
PATIENT NAME: KIMBERLEY VALENCIA : 1965 GENDER: MALE VISIT DATE: 08/14/2019 DISCHARGE DATE: 08/14/19 1300 VISIT LOCKED DATE TIME: PHYSICIAN: OMA POWELL MD PHYSICIAN PAGER NO: [phone] RESOURCE: OMA POWELL MD REASON FOR APPOINTMENT 1. BILATERAL L3/L4, L4/L5 THERAPEUTIC LUMBAR FACET BLOCK HISTORY OF PRESENT ILLNESS HISTORY OF PRESENT ILLNESS: PAIN THE PATIENT DESCRIBES THE PAIN... FALL RISK SCREENING: SCREENING :NO FALLS REPORTED IN THE LAST YEAR CURRENT MEDICATIONS TAKING ARTIFICIAL TEARS 0.4 % SOLUTION 1 DROP INTO AFFECTED EYE NEEDED OPHTHALMIC ONCE A DAY, NOTES: 08/13/2019929 TAKING NEXIUM 24HR 20 MG CAPSULE DELAYED RELEASE 1 CAPSULE ORALLY ONCE A DAY, NOTES: 08/13/2019929 TAKING TESTOSTERONE CYPIONATE 200 MG/ML OIL 0.8 ML INTRAMUSCULAR(DR KIERRA ELMORE) EVERY 10 DAYS, NOTES: 9 DAYS AGO TAKING RESTASIS 0.05 % EMULSION 1 DROP INTO AFFECTED EYE OPHTHALMIC TWICE A DAY, NOTES: 08/13/2019929 TAKING AMLODIPINE BESYLATE 10 MG TABLET 1 TABLET ORALLY ONCE A DAY, NOTES: 08/13/2019929 TAKING VITAMIN D3 2000 UNIT CAPSULE 1 CAPSULE ORALLY ONCE A DAY, NOTES: 08/13/2019929 TAKING LISINOPRIL-HYDROCHLOROTHIAZIDE 20-25 MG TABLET 1 TABLET ORALLY ONCE A DAY, NOTES: 08/13/2019929 TAKING FERROUS SULFATE 325 (65 FE) MG TABLET 1 TABLET ORALLY ONCE A DAY, NOTES: 08/13/2019929 TAKING CYMBALTA 30 MG CAPSULE DELAYED RELEASE PARTICLES 1 CAPSULE ORALLY BID, NOTES: 08/13/2019929 TAKING CYCLOBENZAPRINE HCL 10 MG TABLET 1 TAB ORALLY Q8H PRN MUSCLE SPASM PAIN, NOTES: 08/13/20191999 TAKING OXYCODONE-ACETAMINOPHEN 10-325 MG TABLET 1 TABLET NEEDED ORALLY EVERY 6 HRS MDD4, NOTES: 08/13/20191999 MEDICATION LIST REVIEWED AND RECONCILED WITH THE PATIENT PAST MEDICAL HISTORY HYPERTENSION BARRETS ESOPHAGUS SLEEP APNEA TX WITH CPAP (PULM ASSOC) BACK PAIN - ([facility]) HYPOTESTOSTERONEMIA (Jermaine ELMORE) MAJOR DEPRESSION, SINGLE EPISODE (MANISH) ANXIETY OA (MULTIPLE LOCATIONS) ASCVD 10-YEAR RISK IS 5.3% IN 08/2016 OSCAR'S ESOPHAGUS: GASTRO IN [place] IBS ARTHRITIS ALLERGIES PENICILLIN (FOR ALLERGIES USE ONLY): FEET SWELLS - ALLERGY SURGICAL HISTORY TONSILLECTOMY CHILD BILATERAL CARPAL TUNNEL (FISH) 2009 EGD/COLONOSCOPY (KATHRYN IN [place]) 11/2011 LEFT ELBOW CUBITAL TUNNEL TRANSLATION (FISH) 2012 RIGHT CARPAL TUNNEL 07/05/13 COLO/EGD- KATHRYN-[place]- MILD ESOPHAGITIS 05/20 BACK SURGERY- DR SALGADO SOS 01/2017 HERNIA REPAIR 2018 FAMILY HISTORY FATHER: 70 YRS, PROSTATE CA AT AGE 65, DIAGNOSED WITH HYPERTENSION MOTHER: 76 YRS, DIABETES SIBLINGS: BROTHER CROHN'S SISTER THYROID DISEASE DAUGHTER(S): ALIVE, DAUGHTER MVA 1DAUGHTER(S) - HEALTHY. LIVER FAILURE. SOCIAL HISTORY GENERAL: TOBACCO USE ARE YOU A:NONSMOKER LATEX QUESTIONNAIRE LATEX ALLERGY : HAVE YOU EVER DEVELOPED ANY TYPE OF REACTION AFTER HANDLING LATEX PRODUCTS SUCH RUBBER GLOVES, CONDOMS, DIAPHRAGMS, BALLOONS, SOCKS, OR UNDERWEAR?NO LATEX ALLERGY : HAVE YOU EVER DEVELOPED ANY TYPE OF REACTION DURING OR AFTER DENTAL APPOINTMENT, VAGINAL/RECTAL EXAMINATION, SURGICAL PROCEDURE, OR ANY OTHER EXPOSURE?NO LATEX RISK : HAVE YOU EVER HAD ANY DIFFICULTY BREATHING OR HIVES AFTER EATING OR HANDLING ANY FRUITS, OR VEGETABLES; SUCH KIWI, BANANAS, STONE FRUITS, OR CHESTNUTSNO LATEX RISK : DO YOU HAVE A PREVIOUS PERSONAL HISTORY OF MORE THAN NINE SURGERIES, SPINA BIFIDA, OR REPEATED CATHERIZATIONS? NO LATEX RISK : ARE YOU FREQUENTLY EXPOSED TO LATEX PRODUCTS IN YOUR OCCUPATION?NO DATE ASKED : 08/11/2019 BMI CARE GOAL FOLLOW-UP ABOVE NORMAL BMI FOLLOW-[facility] EDUCATION REGARDING DIET ALCOHOL SCREENING DID YOU HAVE A DRINK CONTAINING ALCOHOL IN THE PAST YEAR?NO POINTS0 INTERPRETATIONNEGATIVE RECREATIONAL DRUG USE DRUG USE?NO PATIENT DENIES ABUSE OR MISSUSED OF ANY MEDICATION. PATIENT DENIES USE OF ANY ILLEGAL SUBSTANCE INCLUDING MARIJUANA OR COCAINE. CAFFEINE CAFFEINE USE?YES 1 COFFEE DAILY SEXUAL HX HAD SEX IN THE LAST 12 MONTHS (VAGINAL, ORAL, OR ANAL)?YES WITHWOMEN ONLY USE PROTECTION?NO HAVE YOU EVER HAD AN STD?NO HIV / HEP-C SCREENING HIV TEST OFFERED TO PATIENT:YES DATE OFFERED:01/28/2017 TEST ACCEPTED:NO HEP-C TEST OFFERED TO PATIENT:NO REASON:PATIENT DECLINED LUTHERAN [id number] PROTESTANT LANGUAGE LANGUAGES SPOKEN:EMIRATI EDUCATION LEVEL OF EDUCATION:HIGH SCHOOL LEARNING BARRIERS / SPECIAL NEEDS CHANGE FROM LAST VISIT?NO BARRIERS TO LEARNING?NO HEARING IMPAIRED?YES VISION IMPAIRED?NO COGNITIVELY IMPAIRED?NO :HEARING AIDES C/O INCREASED HEARING LOSS READINESS TO LEARN?YES LEARNING PREFERENCES?NO LEARNING CAPABILITIES PRESENT?YES EMOTIONAL BARRIERS?NO SPECIAL DEVICES?NO CERAMICS TECHNICIAN NEEDED?NO DOMESTIC VIOLENCE DO YOU FEEL SAFE IN YOUR ENVIRONMENT?YES OCCUPATION: DISABLED. DIET: REGULAR. EXERCISE: NO REGULAR EXERCISE. MARITAL STATUS: . OTHERS AT HOME: SPOUSE. NEW PATIENT PAIN DIARY TODAY'S VISITNOTES 08/11/2019 PATIENT DESCRIBES PAIN :ACHING, HAVE IT ALL THE TIME, STABBING, THROBBING FROM 0-10, WHAT LEVEL IS YOUR PAIN TODAY?4 PRECIPITATING FACTORS MOVING ALLEVIATING FACTORS LAYING, SITTING PAIN CLINIC PFS, CLERGY, PUBLIC HEALTH REFERRALS PFS REFERRAL NEEDED?NO CLERGY REFERRAL NEEDED?NO PUBLIC HEALTH REFERRAL NEEDED?NO WAS THE PROVIDER NOTIFIED OF ANY PERTINENT INFO?YES HAS THE PATIENT BEEN EDUCATED REGARDING HIS/HER PLAN OF CARE?YES HAS THE PATIENT BEEN EDUCATED REGARDING PAIN, THE RISK FOR PAIN, THE IMPORTANCE OF EFFECTIVE PAIN MANAGEMENT, AND THE PAIN ASSESSMENT PROCESS?YES ADVANCE DIRECTIVE ADVANCE DIRECTIVE DISCUSSED WITH PATIENT:YES HCP-LAUREL VALENCIA HOSPITALIZATION/MAJOR DIAGNOSTIC PROCEDURE CHEST PAIN/DYSPNEA, R/O [place] ([place]) 10/15 BACK SURGERY 01/2017 NECK AND LEFT SIDED PAIN AND WEAKNESS 08/2018 REVIEW OF SYSTEMS REVIEWED BY: PROVIDER: OMA POWELL MD . CONSTITUTIONAL: ANY CHANGE IN YOUR MEDICAL CONDITION? NO . CHILLS NO . FEVER NO . INFECTION: DO YOU HAVE NEW INFECTIONS? NO . DO YOU HAVE HISTORY OF MRSA? NO . MUSCULOSKELETAL: ANY NEW PATTERNS OF PAIN OR NUMBNESS? NO . GASTROENTEROLOGY: ANY NEW CHANGE IN BOWEL CONTROL? NO . GENITOURINARY: ANY NEW CHANGE IN BLADDER CONTROL? NO . IS THERE A CHANCE YOU COULD BE ? NO . HEMATOLOGY/LYMPH: DO YOU TAKE ANY BLOOD THINNERS? (FOR EXAMPLE- COUMADIN, PLAVIX, AGGRENOX, PLATEL, PRADAXA, OR XARELTO) NO . WHEN WAS YOUR LAST DOSE? DATE: TIME: . NEUROLOGY: HAVE YOU FALLEN IN THE PAST 12 MONTHS? NO . ANY NEW EXTREMITY NUMBNESS OR WEAKNESS? NO . CARDIOLOGY: DO YOU HAVE A PACEMAKER OR DEFIBRILLATOR? NO . RESPIRATORY: HAVE YOU BEEN SICK IN THE PAST WEEK? NO . FEVER NO . FLU LIKE SYMPTOMS? NO . COUGH NO . INTEGUMENTARY: DO YOU HAVE ANY RASHES OR OPEN SORES? NO . ALLERGIC/IMMUNO: ARE YOU ALLERGIC TO IV DYE? NO . ANY NEW ALLERGIES? NO . PSYCHIATRIC: DO YOU HAVE THOUGHTS OF HURTING YOURSELF OR SOMEONE ELSE? NO . ARE YOU ABUSED, NEGLECTED, OR IN AN UNSAFE ENVIRONMENT? NO . ENDOCRINOLOGY: ARE YOU DIABETIC? NO . OTHER: DO YOU NEED ANY PRESCRIPTIONS? NO . IF YES, PLEASE LIST: ____ . ANY NEW PROBLEMS WITH YOUR MEDICATIONS? NO . WHEN DID YOU LAST EAT? 08/13/2019 1900 . WHEN DID YOU LAST DRINK? 08/14/2019 0100 . WHAT DID YOU LAST DRINK? ____WATER . NAME OF PERSON DRIVING YOU HOME? BROTHER- PARMINDER . DO YOU HAVE ANY OTHER QUESTIONS OR CONCERNS NO . VITAL SIGNS WT 226.0 LBS, HT 68 IN, BMI 34.36 INDEX, BP 140/83 MM HG, HR 88 /MIN, RR 18 /MIN, TEMP 97.9 F, OXYGEN SAT % 99%, NA INITIALS AW 1109. ASSESSMENTS SPONDYLOSIS OF LUMBAR REGION WITHOUT MYELOPATHY OR RADICULOPATHY - M47.816 (PRIMARY) INTERVERTEBRAL DISC DISORDERS WITH RADICULOPATHY, LUMBOSACRAL REGION - M51.17 TREATMENT INTERVERTEBRAL DISC DISORDERS WITH RADICULOPATHY, LUMBOSACRAL REGION [facility] FACET BLOCK (PAIN)[id number] PROCEDURES PN LUMBAR FACET BLOCK THERAPEUTIC PRE PROCEDURE DIAGNOSIS LUMBAR SPONDYLOSIS POST PROCEDURE DIAGNOSIS LUMBAR SPONDYLOSIS PROCEDURE BILATERAL L3-L4, L4-L5 LUMBAR FACET THERAPUTIC BLOCK SURGEON DR. OMA POWELL HANDBELL CHOIR DIRECTOR NONE ANESTHESIA LOCAL PRE PROCEDURE NOTE THE PATIENT HAS A HISTORY OF CHRONIC LOW BACK PAIN. I EVALUATED THE PATIENT AND REVIEWED THE CHART. I WENT OVER THE RISKS, ALTERNATIVES, AND BENEFITS ASSOCIATED WITH THIS PROCEDURE. I DISCUSSED WITH THE PATIENT THAT THE USE OF STEROIDS MAY CONTRIBUTE TO IMMUNOSUPPRESSION OF HIS BODY AGAINST INFECTIONS SUCH THE PARNELL VIRUS, COVID-19. HE IS AWARE OF THE POTENTIAL COMPLICATIONS ASSOCIATED WITH AN INFECTION OF THIS VIRUS INCLUDING . THE PATIENT WOULD LIKE TO PROCEED AND GIVES CONSENT TO PERFORM THE PROCEDURE. THE PATIENT DENIES UNEXPLAINABLE WEIGHT LOSS, FEVER, CHILLS, OR NEW CHANGES IN URINARY OR BOWEL CONTROL. THE PATIENT IS COVID-19 NEGATIVE DESCRIPTION OF PROCEDURE THE PATIENT WAS BROUGHT TO THE PROCEDURE ROOM AND PLACED IN THE PRONE POSITION. THE LUMBOSACRAL AREA WAS CLEANED WITH CHLORAPREP SOLUTION AND DRAPED ASEPTICALLY. THE PROCEDURE WAS DONE UNDER STERILE CONDITIONS. I CHECKED LATERALITY AND THE LEVEL WHERE THE PROCEDURE WAS GOING TO BE PERFORMED WITH THE PATIENT AND THE SUPPORTING STAFF AT THE MOMENT OF THE TIME OUT IN THE PROCEDURE ROOM. UNDER FLUOROSCOPIC GUIDANCE, THE TARGET POINT WAS SELECTED AT THE LEFT AND RIGHT L3-L4 AND LEFT AND RIGHT L4-L5 FACET JOINTS. TARGET POINT WAS SELECTED AFTER LATERAL ROTATION AND TILT OF THE MAGNIFIER OF THE C-ARM. LIDOCAINE 0.5% WAS USED TO NUMB THE SKIN AND THE SUBCUTANEOUS TISSUE BELOW IT. SPINAL NEEDLES, 22-GAUGE, WERE ADVANCED UNDER FLUOROSCOPIC GUIDANCE AND FOLLOWING PATIENT FEEDBACK UNTIL THE TARGETS WERE TOUCHED. THE POSITION OF THE NEEDLES WAS VERIFIED WITH AP AND LATERAL VIEWS. AFTER PROPER POSITION OF THE NEEDLES WAS ACHIEVED, ISOVUE-M DYE 30% 0.1 ML WAS INJECTED SHOWING ADEQUATE SPREAD OF THE DYE. THEN A SOLUTION OF 1.0 ML OF BUPIVACAINE 0.125% OF DEXAMETHASONE 5 MG WAS INJECTED AT EACH SITE. THERE WAS NO EVIDENCE OF BLOOD, PARESTHESIA OR CEREBROSPINAL FLUID DURING THE PROCEDURE. THE PATIENT WAS SENT TO THE RECOVERY ROOM. THE PATIENT WAS MOVING THE EXTREMITIES AND DOING WELL. THERE WAS NO COMPLICATION DURING THE PROCEDURE. FLUOROSCOPY TIME WAS 41 SECONDS POST PROCEDURE NOTE THE PATIENT WILL BE SEEN IN A FOLLOW UP IN THE NEXT FEW WEEKS. I AM LOOKING FOR LONG LASTING PAIN RELIEF FOR THE PATIENT WITH THIS INJECTION. INSTRUCTIONS WERE GIVEN, QUESTIONS WERE ANSWERED, AND THE PATIENT EXPRESSED UNDERSTANDING AND AGREES WITH THE PLAN. I INSTRUCTED THE PATIENT TO STAY HOME, IF POSSIBLE, FOR A WEEK DUE TO COVID-19. I, JUNO MACIAS, DOCUMENTED THE ABOVE INFORMATION ACTING A SCRIBE FOR DR. POWELL. I HAVE REVIEWED THE ABOVE DOCUMENT, WRITTEN BY JUNO MACIAS, JESSICA, AND I VERIFY THAT IT IS ACCURATE PROCEDURE CODES 6045F RADXPS IN END [id number] PXD [id number] INJ PARAVERT F JNT L/S 1 LEV, MODIFIERS: 50 [id number] INJ PARAVERT F JNT L/S 2 LEV, MODIFIERS: 50 DISPOSITION & COMMUNICATION FOLLOW UP F/UP WITH COAGULATING DRYING SUPERVISOR (REASON: POST-PROCEDURE F/UP-LOW BACK PAIN) ELECTRONICALLY SIGNED BY OMA POWELL MD, MD ON 08/18/2019 AT 10:19 AM EDT DISCLAIMER : THIS IS A VISIT SUMMARY EXTRACTED FROM THE [employer] CHART. IT IS NOT A COPY OF THE [employer] PROGRESS NOTE. ENE
== END ==
LOC: M PAIN 11:15
PROVIDERS: ATTEND Anesthesiology
DX: M47.816 Spondylosis without myelopathy or radiculopathy, lumbar region (principal); M51.17 Intervertebral disc disorders with radiculopathy, lumbosacral region; I10 Essential (primary) hypertension; G47.30 Sleep apnea, unspecified; Z86.59 Personal history of other mental and behavioral disorders; Z88.0 Allergy status to penicillin; Z79.899 Other long term (current) drug therapy
CPT/HCPCS: 64493; 64494; J1100; Q9967

== ENCOUNTER → 2019-08-18 | Outpatient (CLI) | payer MEDICARE ==
[~2019-08-18] MED LIST changes: -BUPIVACAINE HCL 0.25% 30ML VIAL As Ordered ONE; -ISOVUE-M 300 61% 15ML VIAL As Ordered ONE; -LIDOCAINE 1% SDV 30ML VIAL As Ordered ONE; -dexameTHASONE 10MG/1ML VIAL PRES.FREE (J1100 PER 1MG) As Ordered ONE; -diazePAM 5 MG TAB As Ordered ONE; -oxyCODONE 5MG TAB As Ordered ONE
[2019-08-18 14:39] LABS: HEMOGLOBIN A1c 6.4 %
== END ==
LOC: M PLALAB 10:16
PROVIDERS: ATTEND Family Medicine
DX: R73.03 Prediabetes (principal)

== ENCOUNTER → 2019-08-30 | Outpatient (CLI) | payer MEDICARE ==
[2019-08-30 13:51] LABS: HEMATOCRIT 42.9 % (42.0-52.0); HEMOGLOBIN 13.5 g/dl (13.5-17.5)
== END ==
LOC: M PLALAB 08:40
PROVIDERS: ATTEND Nurse Practitioner Family
DX: E29.1 Testicular hypofunction (principal)
CPT/HCPCS: 36415; 84403; 85014; 85018; G0103

== ENCOUNTER → 2019-09-01 | Outpatient (CLI) | payer MEDICARE ==
--- NOTE | 2019-09-05 02:09 | ECWPNPC ---
PATIENT NAME: KIMBERLEY VALENCIA : 1965 GENDER: MALE VISIT DATE: 09/01/2019 DISCHARGE DATE: 09/01/19 1552 VISIT LOCKED DATE TIME: PHYSICIAN: WILLIAM FREEMAN PHYSICIAN PAGER NO: TEXT TO [phone] RESOURCE: WILLIAM FREEMAN REASON FOR APPOINTMENT 1. POST PROC [phone] PAT DONE HISTORY OF PRESENT ILLNESS GENERAL: PATIENT IS AGREEABLE TO TELEMED VISIT VIA ZOOM. THIS IS A POST PROCEDURE FOLLOW-UP. HAD BILATERAL THERAPEUTIC LUMBAR FACET BLOCK, L3-4, L4-5 ON 08/14/2019. REPORTING MARKED REDUCTION IN PAIN THAT CONTINUES TODAY. REPORTING IMPROVED ACTIVITY TOLERANCE DUE TO LESS LEG SYMPTOMS AND HIP SYMPTOMS. CHIEF AREA OF PAIN IS NECK. REPORTING PARESTHESIAS IN HIS ARMS AND HANDS BILATERALLY. PAIN IS CAUSING HEADACHES. HAS RESPONDED FAVORABLY TO CERVICAL EPIDURAL STEROID INJECTION IN THE PAST. PATIENT WOULD LIKE TO PROCEED WITH CERVICAL EPIDURAL STEROID INJECTION.-. FALL RISK SCREENING: SCREENING :NO FALLS REPORTED IN THE LAST YEAR PAIN SCREENING: PATIENT HAS A COMPLAINT OF ACUTE OR CHRONIC PAIN :YES LOCATION OF PAIN:LOW BACK INTENSITY OF PAIN (SCALE OF 1 TO 10):2 WHAT DOES YOUR PAIN FEEL LIKE:INTERMITTENT, STABBING, THROBBING, OTHER DURATION:RHYTHMIC PAIN IS INCREASED BY:ACTIVITIES PAIN IS DECREASED BY:USE OF PAIN MEDICATIONS, OTHERS NURSING NOTE: -. PAIN CENTER INTAKE QUESTIONS: DO YOU HAVE A HISTORY OF MRSA? :NO DO YOU TAKE A BLOOD THINNERS? :NO DO YOU HAVE ANY BLEEDING DISORDERS? :NO ANY NEW NUMBNESS OR WEAKNESS IN YOUR LEGS OR ARMS? :NO ANY PACEMAKER,DEFIBRILLATOR, OR DORSAL COLUMN STIMULATOR? :NO DO YOU HAVE ANY RASHES OR OPEN SORES? :NO ARE YOU ALLERGIC TO IV DYE? :NO ARE YOU DIABETIC? :NO ANY NEW PROBLEMS WITH YOUR MEDICATIONS? :NO HAVE YOU RECEIVED A VACCINE IN THE PAST 30 DAYS? :NO DO YOU PLAN TO RECEIVE A VACCINE IN THE NEXT 21 DAYS? :NO DO YOU NEED ANY PRESCRIPTION? :NO DO YOU TAKE ANY IMMUNOSUPPRESSIVE MEDICATIONS? :NO CURRENT MEDICATIONS TAKING ARTIFICIAL TEARS 0.4 % SOLUTION 1 DROP INTO AFFECTED EYE NEEDED OPHTHALMIC ONCE A DAY TAKING NEXIUM 24HR 20 MG CAPSULE DELAYED RELEASE 1 CAPSULE ORALLY ONCE A DAY TAKING TESTOSTERONE CYPIONATE 200 MG/ML OIL 0.8 ML INTRAMUSCULAR(DR KIERRA ELMORE) EVERY 10 DAYS TAKING RESTASIS 0.05 % EMULSION 1 DROP INTO AFFECTED EYE OPHTHALMIC TWICE A DAY TAKING AMLODIPINE BESYLATE 10 MG TABLET 1 TABLET ORALLY ONCE A DAY TAKING VITAMIN D3 2000 UNIT CAPSULE 1 CAPSULE ORALLY ONCE A DAY TAKING LISINOPRIL-HYDROCHLOROTHIAZIDE 20-25 MG TABLET 1 TABLET ORALLY ONCE A DAY TAKING FERROUS SULFATE 325 (65 FE) MG TABLET 1 TABLET ORALLY ONCE A DAY TAKING CYMBALTA 30 MG CAPSULE DELAYED RELEASE PARTICLES 1 CAPSULE ORALLY BID TAKING CYCLOBENZAPRINE HCL 10 MG TABLET 1 TAB ORALLY Q8H PRN MUSCLE SPASM PAIN TAKING OXYCODONE-ACETAMINOPHEN 10-325 MG TABLET 1 TABLET NEEDED ORALLY EVERY 6 HRS MDD4 MEDICATION LIST REVIEWED AND RECONCILED WITH THE PATIENT PAST MEDICAL HISTORY HYPERTENSION BARRETS ESOPHAGUS SLEEP APNEA [place] WITH CPAP (PULM ASSOC) BACK [facility]IN - ([facility]) HYPOTESTOSTERONEMIA (Jermaine ELMORE) MAJOR DEPRESSION, SINGLE EPISODE (MANISH) ANXIETY OA (MULTIPLE LOCATIONS) ASCVD 10-YEAR RISK IS 5.3% IN 08/2016 OSCAR'S ESOPHAGUS: GASTRO IN [place] IBS ARTHRITIS ALLERGIES PENICILLIN (FOR ALLERGIES USE ONLY): FEET SWELLS - ALLERGY SURGICAL HISTORY TONSILLECTOMY CHILD BILATERAL CARPAL TUNNEL (FISH) 2009 EGD/COLONOSCOPY ([facility]ATHRYN IN [place]) 11/2011 LEFT ELBOW CUBITAL TUNNEL TRANSLATION (FISH) 2012 RIGHT CARPAL TUNNEL 07/05/13 COLO/EGD- KATHRYN-[place]- MILD ESOPHAGITIS 05/20 BACK SURGERY- DR DAMIAN FELIX 01/2017 HERNIA REPAIR 2018 FAMILY HISTORY FATHER: 70 YRS, PROSTATE CA AT AGE 65, DIAGNOSED WITH HYPERTENSION MOTHER: 76 YRS, DIABETES SIBLINGS: BROTHER CROHN'S SISTER THYROID DISEASE DAUGHTER(S): ALIVE, DAUGHTER MVA 1DAUGHTER(S) - HEALTHY. LIVER FAILURE. SOCIAL HISTORY GENERAL: TOBACCO USE ARE YOU A:NONSMOKER LATEX QUESTIONNAIRE LATEX ALLERGY : HAVE YOU EVER DEVELOPED ANY TYPE OF REACTION AFTER HANDLING LATEX PRODUCTS SUCH RUBBER GLOVES, CONDOMS, DIAPHRAGMS, BALLOONS, SOCKS, OR UNDERWEAR?NO LATEX ALLERGY : HAVE YOU EVER DEVELOPED ANY TYPE OF REACTION DURING OR AFTER DENTAL APPOINTMENT, VAGINAL/RECTAL EXAMINATION, SURGICAL PROCEDURE, OR ANY OTHER EXPOSURE?NO LATEX RISK : HAVE YOU EVER HAD ANY DIFFICULTY BREATHING OR HIVES AFTER EATING OR HANDLING ANY FRUITS, OR VEGETABLES; SUCH KIWI, BANANAS, STONE FRUITS, OR CHESTNUTSNO LATEX RISK : DO YOU HAVE A PREVIOUS PERSONAL HISTORY OF MORE THAN NINE SURGERIES, SPINA BIFIDA, OR REPEATED CATHERIZATIONS? NO LATEX RISK : ARE YOU FREQUENTLY EXPOSED TO LATEX PRODUCTS IN YOUR OCCUPATION?NO DATE ASKED : 08/31/2019 BMI CARE GOAL FOLLOW-UP ABOVE NORMAL BMI FOLLOW-UPLIFESTYLE EDUCATION REGARDING DIET ALCOHOL SCREENING DID YOU HAVE A DRINK CONTAINING ALCOHOL IN THE PAST YEAR?NO POINTS0 INTERPRETATIONNEGATIVE RECREATIONAL DRUG USE DRUG USE?NO PATIENT DENIES ABUSE OR MISSUSED OF ANY MEDICATION. PATIENT DENIES USE OF ANY ILLEGAL SUBSTANCE INCLUDING MARIJUANA OR COCAINE. CAFFEINE CAFFEINE USE?YES 1 COFFEE DAILY SEXUAL HX HAD SEX IN THE LAST 12 MONTHS (VAGINAL, ORAL, OR ANAL)?YES WITHWOMEN ONLY USE PROTECTION?NO HAVE YOU EVER HAD AN STD?NO HIV / HEP-C SCREENING HIV TEST OFFERED TO PATIENT:YES DATE OFFERED:01/28/2017 TEST ACCEPTED:NO HEP-C TEST OFFERED TO PATIENT:NO REASON:PATIENT DECLINED CONFUCIANIST [id number] ORTHODOXY LANGUAGE LANGUAGES SPOKEN:PORTUGUESE EDUCATION LEVEL OF EDUCATION:HIGH SCHOOL LEARNING BARRIERS / SPECIAL NEEDS CHANGE FROM LAST VISIT?NO BARRIERS TO LEARNING?NO HEARING IMPAIRED?YES VISION IMPAIRED?NO COGNITIVELY IMPAIRED?NO :HEARING AIDES C/O INCREASED HEARING LOSS READINESS TO LEARN?YES LEARNING PREFERENCES?NO LEARNING CAPABILITIES PRESENT?YES EMOTIONAL BARRIERS?NO SPECIAL DEVICES?NO TRAVEL SERVICE CONSULTANT NEEDED?NO DOMESTIC VIOLENCE DO YOU FEEL SAFE IN YOUR ENVIRONMENT?YES OCCUPATION: DISABLED. DIET: REGULAR. EXERCISE: NO REGULAR EXERCISE. MARITAL STATUS: . OTHERS AT HOME: SPOUSE. NEW PATIENT PAIN DIARY TODAY'S VISITNOTES PATIENT DESCRIBES PAIN :ACHING, HAVE IT ALL THE TIME, STABBING, THROBBING FROM 0-10, WHAT LEVEL IS YOUR PAIN TODAY?4 PRECIPITATING FACTORS MOVING ALLEVIATING FACTORS LAYING, SITTING PAIN CLINIC PFS, CLERGY, PUBLIC HEALTH REFERRALS PFS REFERRAL NEEDED?NO CLERGY REFERRAL NEEDED?NO PUBLIC HEALTH REFERRAL NEEDED?NO WAS THE PROVIDER NOTIFIED OF ANY PERTINENT INFO?YES HAS THE PATIENT BEEN EDUCATED REGARDING HIS/HER PLAN OF CARE?YES HAS THE PATIENT BEEN EDUCATED REGARDING PAIN, THE RISK FOR PAIN, THE IMPORTANCE OF EFFECTIVE PAIN MANAGEMENT, AND THE PAIN ASSESSMENT PROCESS?YES ADVANCE DIRECTIVE ADVANCE DIRECTIVE DISCUSSED WITH PATIENT:YES HCP-[facility] VALENCIA HOSPITALIZATION/MAJOR DIAGNOSTIC PROCEDURE CHEST PAIN/DYSPNEA, R/O [place] ([place]) 10/15 BACK SURGERY 01/2017 NECK AND LEFT SIDED PAIN AND WEAKNESS 08/2018 REVIEW OF SYSTEMS CONSTITUTIONAL: ANY RECENT FEVER OR ILLNESS NO . CHILLS NO . GASTROENTEROLOGY: BOWEL INCONTINENCE NO . ANY NEW CHANGE IN BOWEL CONTROL? NO . ABDOMINAL PAIN NO . CONSTIPATION NO . GENITOURINARY: ANY NEW CHANGE IN BLADDER CONTROL? NO . IS THERE A CHANCE YOU COULD BE ? NO . URINARY INCONTINENCE NO . CARDIOLOGY: CHEST PRESSURE NO . CHEST PAIN NO . RESPIRATORY: COUGH NO . SHORTNESS OF BREATH NO . EXAMINATION GENERAL EXAMINATION: GENERALNO ACUTE DISTRESS, WELL NOURISHED AND HYDRATED. PSYCHAPPROPRIATE MOOD AND AFFECT . FACE:UNREMARKABLE. VIRTUAL EXAM: PATIENT DEMONSTRATES INCREASE IN PAIN WITH DEEP PALPATION OVER CERVICAL SPINE. ASSESSMENTS CERVICAL DISC DISORDER WITH RADICULOPATHY OF CERVICAL REGION - M50.10 (PRIMARY) SPONDYLOSIS OF LUMBAR REGION WITHOUT MYELOPATHY OR RADICULOPATHY - M47.816 TREATMENT CERVICAL DISC DISORDER WITH RADICULOPATHY OF CERVICAL REGION NOTES: C7-T1 CERVICAL EPIDURAL STEROID INJECTION. PRE PROCEDURE TEACHING COMPLETED WITH PT. VERBAL CONSENT GIVEN, 09/01/19 @1PM, NA TIME SPENT DURING VIRTUAL ZOOM VISIT WAS APPROXIMATLEY 12 MINUTES. DISPOSITION & COMMUNICATION FOLLOW UP POST (REASON: C7-T1 CERVICAL EPIDURAL STEROID INJECTION) ELECTRONICALLY SIGNED BY HARDIK COLUNGA ON 09/04/2019 AT 04:33 PM EDT DISCLAIMER : THIS IS A VISIT SUMMARY EXTRACTED FROM THE [employer] CHART. IT IS NOT A COPY OF THE [employer] PROGRESS NOTE. ENE
== END ==
LOC: M PAIN 09:45
PROVIDERS: ATTEND Nurse Practitioner Family
DX: M50.10 Cervical disc disorder with radiculopathy, unspecified cervical region (principal); M47.816 Spondylosis without myelopathy or radiculopathy, lumbar region

== ENCOUNTER → 2019-09-10 | Outpatient (CLI) | payer MEDICARE | LOC: M LABSMTC 09:26 | PROVIDERS: ATTEND Anesthesiology | DX: Z03.818 Encounter for observation for suspected exposure to other biological agents ruled out (principal); Z11.59 Encounter for screening for other viral diseases | CPT/HCPCS: C9803; U0003 ==

== ENCOUNTER → 2019-09-13 | Outpatient (CLI) | payer MEDICARE ==
[~2019-09-13] MED LIST changes: +ISOVUE-M 300 61% 15ML VIAL As Ordered ONE; +LIDOCAINE 1% SDV 30ML VIAL As Ordered ONE; +dexameTHASONE 10MG/1ML VIAL PRES.FREE (J1100 PER 1MG) As Ordered ONE; +diazePAM 5 MG TAB As Ordered ONE; +oxyCODONE 5MG TAB As Ordered ONE
--- NOTE | 2019-09-13 11:03 | REP ---
C-ARM VIEWS CERVICAL SPINE: CLINICAL HISTORY: Pain. Three C-arm views of the cervical spine performed during cervical epidural injection by Dr. Rod. A needle is seen at the lower cervical region. 39 seconds of fluoroscopy time utilized. Electronically Signed by Shailesh Buchanan MD 09/14/2019 11:14 A
--- NOTE | 2019-09-14 00:02 | ECWPNPC ---
PATIENT NAME: KIMBERLEY VALENCIA : 1965 GENDER: MALE VISIT DATE: 09/13/2019 DISCHARGE DATE: 09/13/19 1051 VISIT LOCKED DATE TIME: PHYSICIAN: OMA POWELL MD PHYSICIAN PAGER NO: TEXT TO [phone] RESOURCE: OMA POWELL MD REASON FOR APPOINTMENT 1. JHON C7/T1 PAT CALLED HISTORY OF PRESENT ILLNESS GENERAL: -. FALL RISK SCREENING: SCREENING :NO FALLS REPORTED IN THE LAST YEAR PAIN SCREENING: PATIENT HAS A COMPLAINT OF ACUTE OR CHRONIC PAIN :YES LOCATION OF PAIN:NECK INTENSITY OF PAIN (SCALE OF 1 TO 10):5 WHAT DOES YOUR PAIN FEEL LIKE:BURNING, TENDER, SORE PAIN IS INCREASED BY: BY MOVEMENT SIDE TO SIDE WILL INCREASE PAIN NURSING NOTE: -. PAIN CENTER INTAKE QUESTIONS: DO YOU HAVE A HISTORY OF MRSA? :NO " I DONT THINK SO" DO YOU TAKE A BLOOD THINNERS? :NO DO YOU HAVE ANY BLEEDING DISORDERS? :NO ANY NEW NUMBNESS OR WEAKNESS IN YOUR LEGS OR ARMS? :NO ANY PACEMAKER,DEFIBRILLATOR, OR DORSAL COLUMN STIMULATOR? :NO DO YOU HAVE ANY RASHES OR OPEN SORES? :NO ARE YOU ALLERGIC TO IV DYE? :NO ARE YOU DIABETIC? :NO ANY NEW PROBLEMS WITH YOUR MEDICATIONS? :NO HAVE YOU RECEIVED A VACCINE IN THE PAST 30 DAYS? :NO DO YOU PLAN TO RECEIVE A VACCINE IN THE NEXT 21 DAYS? :NO DO YOU TAKE ANY IMMUNOSUPPRESSIVE MEDICATIONS? :NO ANY HISTORY OF SEIZURES? :NO ANY HISTORY OF CARDIAC ISSUES OR EVENTS? :NO DO YOU HAVE SLEEP APNEA? YES CPAP. ANY RECENT HEAD INJURY? :NO DO YOU HAVE ANY NEW INFECTIONS? :NO IS THERE A CHANCE YOU COULD BE ? :NO ARE YOU BREAST FEEDING? :NO WHEN DID YOU LAST EAT? : - WHEN DID YOU LAST DRINK? : -THIS MORNING AT 0600 WHAT DID YOU LAST DRINK? : BLACK COFFEE NAME OF PERSON DRIVING YOU HOME? : -BROTHER PARMINDER DO YOU HAVE ANY OTHER QUESTIONS OR CONCERNS? : - CURRENT MEDICATIONS TAKING ARTIFICIAL TEARS 0.4 % SOLUTION 1 DROP INTO AFFECTED EYE NEEDED OPHTHALMIC ONCE A DAY, NOTES: 09-12-19 0900 TAKING NEXIUM 24HR 20 MG CAPSULE DELAYED RELEASE 1 CAPSULE ORALLY ONCE A DAY, NOTES: 09-13-19 TAKING TESTOSTERONE CYPIONATE 200 MG/ML OIL 0.8 ML INTRAMUSCULAR(DR KIERRA FISH) EVERY 10 DAYS, NOTES: Q 10 DAYS 09-05-19 TAKING RESTASIS 0.05 % EMULSION 1 DROP INTO AFFECTED EYE OPHTHALMIC TWICE A DAY, NOTES: 09-13-19 TAKING AMLODIPINE BESYLATE 10 MG TABLET 1 TABLET ORALLY ONCE A DAY, NOTES: 09-13-19599 TAKING VITAMIN D3 2000 UNIT CAPSULE 1 CAPSULE ORALLY ONCE A DAY, NOTES: 09-13-19699 TAKING LISINOPRIL-HYDROCHLOROTHIAZIDE 20-25 MG TABLET 1 TABLET ORALLY ONCE A DAY, NOTES: 09-13-19599 TAKING FERROUS SULFATE 325 (65 FE) MG TABLET 1 TABLET ORALLY ONCE A DAY, NOTES: 09-12-19799 TAKING CYMBALTA 30 MG CAPSULE DELAYED RELEASE PARTICLES 1 CAPSULE ORALLY BID, NOTES: 09-12-19899 TAKING CYCLOBENZAPRINE HCL 10 MG TABLET 1 TAB ORALLY Q8H PRN MUSCLE SPASM PAIN, NOTES: 09-13-19599 TAKING OXYCODONE-ACETAMINOPHEN 10-325 MG TABLET 1 TABLET NEEDED ORALLY EVERY 6 HRS MDD4, NOTES: 09-12-19899 MEDICATION LIST REVIEWED AND RECONCILED WITH THE PATIENT PAST MEDICAL HISTORY HYPERTENSION BARRETS ESOPHAGUS SLEEP APNEA [place] WITH CPAP (PULM ASSOC) BACK PAIN - ([facility]) HYPOTESTOSTERONEMIA (C. RAMÍREZ) MAJOR DEPRESSION, SINGLE EPISODE (MANISH) ANXIETY OA (MULTIPLE LOCATIONS) ASCVD 10-YEAR RISK IS 5.3% IN 08/2016 OSCAR'S ESOPHAGUS: GASTRO IN [place] IBS ARTHRITIS ALLERGIES PENICILLIN (FOR ALLERGIES USE ONLY): FEET SWELLS - ALLERGY SURGICAL HISTORY TONSILLECTOMY CHILD BILATERAL CARPAL TUNNEL (FISH) 2009 EGD/COLONOSCOPY (KATHRYN IN [place]) 11/2011 LEFT ELBOW CUBITAL TUNNEL TRANSLATION (FISH) 2012 RIGHT CARPAL TUNNEL 07/05/13 COLO/EGD- KATHRYN-[place]OU[place]- MILD ESOPHAGITIS 05/20 BACK SURGERY- DR SALGADO SOS 01/2017 HERNIA REPAIR 2018 FAMILY HISTORY FATHER: 70 YRS, PROSTATE CA AT AGE 65, DIAGNOSED WITH HYPERTENSION MOTHER: 76 YRS, DIABETES SIBLINGS: BROTHER CROHN'S SISTER THYROID DISEASE DAUGHTER(S): ALIVE, DAUGHTER MVA 1DAUGHTER(S) - HEALTHY. LIVER FAILURE. SOCIAL HISTORY GENERAL: TOBACCO USE ARE YOU A:NONSMOKER LATEX QUESTIONNAIRE LATEX ALLERGY : HAVE YOU EVER DEVELOPED ANY TYPE OF REACTION AFTER HANDLING LATEX PRODUCTS SUCH RUBBER GLOVES, CONDOMS, DIAPHRAGMS, BALLOONS, SOCKS, OR UNDERWEAR?NO LATEX ALLERGY : HAVE YOU EVER DEVELOPED ANY TYPE OF REACTION DURING OR AFTER DENTAL APPOINTMENT, VAGINAL/RECTAL EXAMINATION, SURGICAL PROCEDURE, OR ANY OTHER EXPOSURE?NO DATE ASKED : 08/31/2019 LATEX RISK : HAVE YOU EVER HAD ANY DIFFICULTY BREATHING OR HIVES AFTER EATING OR HANDLING ANY FRUITS, OR VEGETABLES; SUCH KIWI, BANANAS, STONE FRUITS, OR CHESTNUTSNO LATEX RISK : DO YOU HAVE A PREVIOUS PERSONAL HISTORY OF MORE THAN NINE SURGERIES, SPINA BIFIDA, OR REPEATED CATHERIZATIONS? NO LATEX RISK : ARE YOU FREQUENTLY EXPOSED TO LATEX PRODUCTS IN YOUR OCCUPATION?NO BMI CARE GOAL FOLLOW-UP ABOVE NORMAL BMI FOLLOW-UPLIFESTYLE EDUCATION REGARDING DIET ALCOHOL SCREENING DID YOU HAVE A DRINK CONTAINING ALCOHOL IN THE PAST YEAR?NO POINTS0 INTERPRETATIONNEGATIVE RECREATIONAL DRUG USE DRUG USE?NO PATIENT DENIES ABUSE OR MISSUSED OF ANY MEDICATION. PATIENT DENIES USE OF ANY ILLEGAL SUBSTANCE INCLUDING MARIJUANA OR COCAINE. CAFFEINE CAFFEINE USE?YES 1 COFFEE DAILY SEXUAL HX HAD SEX IN THE LAST 12 MONTHS (VAGINAL, ORAL, OR ANAL)?YES WITHWOMEN ONLY USE PROTECTION?NO HAVE YOU EVER HAD AN STD?NO HIV / HEP-C SCREENING HIV TEST OFFERED TO PATIENT:YES DATE OFFERED:01/28/2017 TEST ACCEPTED:NO HEP-C TEST OFFERED TO PATIENT:NO REASON:PATIENT DECLINED LUTHERAN [id number] AMISH LANGUAGE LANGUAGES SPOKEN:MACEDONIAN EDUCATION LEVEL OF EDUCATION:HIGH SCHOOL LEARNING BARRIERS / SPECIAL NEEDS CHANGE FROM LAST VISIT?NO BARRIERS TO LEARNING?NO HEARING IMPAIRED?YES :HEARING AIDES C/O INCREASED HEARING LOSS VISION IMPAIRED?NO COGNITIVELY IMPAIRED?NO READINESS TO LEARN?YES LEARNING PREFERENCES?NO LEARNING CAPABILITIES PRESENT?YES EMOTIONAL BARRIERS?NO SPECIAL DEVICES?YES PT USES A CANE CPAP 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 DIET: REGULAR. EXERCISE: NO REGULAR EXERCISE. MARITAL STATUS: . OTHERS AT HOME: SPOUSE. NEW PATIENT PAIN DIARY TODAY'S VISITNOTES PATIENT DESCRIBES PAIN :ACHING, HAVE IT ALL THE TIME, STABBING, THROBBING FROM 0-10, WHAT LEVEL IS YOUR PAIN TODAY?4 PRECIPITATING FACTORS MOVING ALLEVIATING FACTORS LAYING, SITTING PAIN CLINIC PFS, CLERGY, PUBLIC HEALTH REFERRALS PFS REFERRAL NEEDED?NO CLERGY REFERRAL NEEDED?NO PUBLIC HEALTH REFERRAL NEEDED?NO WAS THE PROVIDER NOTIFIED OF ANY PERTINENT INFO?YES HAS THE PATIENT BEEN EDUCATED REGARDING HIS/HER PLAN OF CARE?YES HAS THE PATIENT BEEN EDUCATED REGARDING PAIN, THE RISK FOR PAIN, THE IMPORTANCE OF EFFECTIVE PAIN MANAGEMENT, AND THE PAIN ASSESSMENT PROCESS?YES ADVANCE DIRECTIVE ADVANCE DIRECTIVE DISCUSSED WITH PATIENT:YES HCP-LAUREL VALENCIA HOSPITALIZATION/MAJOR DIAGNOSTIC PROCEDURE CHEST PAIN/DYSPNEA, R/O PR ([place]) 10/15 BACK SURGERY 01/2017 NECK AND LEFT SIDED PAIN AND WEAKNESS 08/2018 VITAL SIGNS WT 222.6 LBS, HT 68 IN, BMI 33.84 INDEX, BP 140/87 MM HG, HR 96 /MIN, RR 18 /MIN, TEMP 98.0 F, OXYGEN SAT % 98%, NA INITIALS AW 0929, REVIEWED BY: KG. EXAMINATION GENERAL EXAMINATION: THE PATIENT IS ALERT, ORIENTED TIMES THREE AND COOPERATIVE. HEART SHOWS REGULAR RHYTHM, NO MURMURS AND NO GALLOPS. LUNGS ARE CLEAR TO AUSCULTATION. ASSESSMENTS CERVICAL DISC DISORDER WITH RADICULOPATHY OF CERVICAL REGION - M50.10 (PRIMARY) TREATMENT CERVICAL DISC DISORDER WITH RADICULOPATHY OF CERVICAL REGION [facility] FLUORO GUIDE SPINE INJECTION (PAIN)[id number] PROCEDURES PAIN NURSING RECORD PRE-PROCEDURE IV SITE LEFT AC, IV STARTED # 22, IV STARTED BY: Citlaly SUN RN, IV ATTEMPTS ONE ATTEMPT IN LEFT HAND BY RICHIE TYLER RN, PRE-PROCEDURE ORAL MEDICATIONS 5 MG VALIUM PO Angelia TYLER RN 0936 10 MG OXYCODONE PO Angelia TYLER RN 0936 PROCEDURE IN ROOM 1000, PHYSICIAN IN ROOM 1010, START 1019, FINISH 1033, PHYSICIAN OUT OF ROOM 1035, OUT OF ROOM 1040, STEROID YES DEXOMETHASONE, O2 ROOM AIR, ECG NSY, PATIENT SHIELDED YES, SAFETY STRAP YES, PREP HANNAH SALGUERO, DRESSING APPLIED BY DR POWELL CLEAR AND DRY LOC: 1. ALERT, ORIENTED RESP: 1. REGULAR, NO DYSPNEA COLOR: 1. PINK SKIN: 1. WARM, DRY POSITION: 1. PRONE VITALS: 1000 123/85 90 95% 18 HANNAH SALGUERO 1015 132/76 87 97% 18 HANNAH SALGUEROPRODUCTION LINE: POST PAIN 2 POST PAIN, DRESSING SITE CLEAR AND INTACT, IV DC IV SITE CLEAR CATHATER IN TACT, GAIT STEADY, TEACHING COMPLETED, PATIENT ACKNOWLEDGES UNDERSTANDING REVIEWED THE DC INSTRUCTIONS AND GIVEN PRINTED COPY TO THE PT, PATIENT DISCHARGED AT 1050 PN CERVICAL EPIDURAL PRE PROCEDURE DIAGNOSIS CERVICAL DISC DISORDER WITH RADICULOPATHY POST PROCEDURE DIAGNOSIS CERVICAL DISC DISORDER WITH RADICULOPATHY PROCEDURE CERVICAL EPIDURAL STEROID INJECTION UNDER FLUOROSCOPIC GUIDANCE SURGEON DR. OMA POWELL RETAIL BUSINESS DEVELOPMENT MANAGER NONE ANESTHESIA LOCAL PRE PROCEDURE NOTE THE PATIENT HAS A HISTORY OF CHRONIC CERVICAL PAIN. I EVALUATED THE PATIENT AND REVIEWED THE CHART. I WENT OVER THE RISKS, ALTERNATIVES, AND BENEFITS ASSOCIATED WITH THIS PROCEDURE. I DISCUSSED THAT THE USE OF STEROIDS MAY CONTRIBUTE TO IMMUNOSUPPRESSION OF THE PATIENT'S BODY AGAINST INFECTIONS SUCH THE PARNELL VIRUS, COVID-19. THE PATIENT IS AWARE OF THE POTENTIAL COMPLICATIONS ASSOCIATED WITH AN INFECTION OF THIS VIRUS INCLUDING . THE PATIENT WOULD LIKE TO PROCEED AND GIVE CONSENT TO PERFORMED THE PROCEDURE. THE PATIENT DENIES UNEXPLAINABLE WEIGHT LOSS, FEVER, CHILLS, OR NEW CHANGES IN URINARY OR BOWEL CONTROL. THE PATIENT IS COVID-19 NEGATIVE DESCRIPTION OF PROCEDURE THE PATIENT WAS BROUGHT TO THE PROCEDURE ROOM AND PLACED IN THE PRONE POSITION. THE CERVICOTHORACIC AREA WAS CLEANED WITH BETADINE SOLUTION AND DRAPED ASEPTICALLY. THE PROCEDURE WAS DONE UNDER STERILE CONDITIONS. I CHECKED LATERALITY AND THE LEVEL WHERE THE PROCEDURE WAS GOING TO BE PERFORMED WITH THE PATIENT AND THE SUPPORTING STAFF AT THE MOMENT OF THE TIME OUT IN THE PROCEDURE ROOM. UNDER FLUOROSCOPIC GUIDANCE, THE TARGET WAS SELECTED AT THE INTERLAMINAR LEVEL OF C7-T1. LIDOCAINE WAS USED TO NUMB THE SKIN AND THE SUBCUTANEOUS TISSUE BELOW IT. EPIDURAL TUOHY NEEDLE, 17-GAUGE, WAS ADVANCED UNDER FLUOROSCOPIC GUIDANCE AND FOLLOWING PATIENT FEEDBACK UNTIL THE EPIDURAL SPACE WAS REACHED 8 CM DEEP INTO THE SKIN BY THE LOSS OF RESISTANCE TECHNIQUE. ISOVUE-M DYE 30%, 0.25 ML, WAS INJECTED SHOWING ADEQUATE SPREAD OF THE DYE. THEN, A SOLUTION OF 3 ML OF NORMAL SALINE WITH DEXAMETHASONE 10 MG WAS INJECTED SLOWLY FOLLOWING PATIENT FEEDBACK. THERE WAS NO EVIDENCE OF BLOOD, PARESTHESIA OR CEREBROSPINAL FLUID DURING THE PROCEDURE. EBL LESS THAN 5 ML. THE PATIENT WAS SENT TO THE RECOVERY ROOM. THE PATIENT WAS MOVING THE EXTREMITIES AND DOING WELL. THERE WERE NO COMPLICATIONS DURING THE PROCEDURE. FLUOROSCOPY TIME WAS 39 SECONDS POST PROCEDURE NOTE THE PATIENT WILL BE SEEN IN A FOLLOW UP IN THE NEXT FEW WEEKS. I AM LOOKING FOR LONG LASTING RELIEF FOR THE PATIENT WITH THIS INTERVENTION. INSTRUCTIONS WERE GIVEN, QUESTIONS WERE ANSWERED, AND THE PATIENT EXPRESSED UNDERSTANDING AND AGREES WITH THE PLAN. THE PATIENT IS AWARE TO STAY HOME FOR THE NEXT WEEK, IF POSSIBLE, DUE TO COVID-19. I, JUNO MACIAS, DOCUMENTED THE ABOVE INFORMATION ACTING A SCRIBE FOR DR. POWELL. I HAVE REVIEWED THE ABOVE DOCUMENT, WRITTEN BY JUNO MACIAS, LEGAL CONSULTANT, AND I VERIFY THAT IT IS ACCURATE PROCEDURE CODES 95552 CERVICAL/THORACIC W/ IMAGING DISPOSITION & COMMUNICATION FOLLOW UP F/UP WITH [employer]IVER (REASON: POST JHON) ELECTRONICALLY SIGNED BY OMA POWELL MD, MD ON 09/13/2019 AT 04:39 PM EDT DISCLAIMER : THIS IS A VISIT SUMMARY EXTRACTED FROM THE [employer] CHART. IT IS NOT A COPY OF THE [employer] PROGRESS NOTE. EDISOND
== END ==
LOC: M PAIN 09:30
PROVIDERS: ATTEND Anesthesiology
DX: M50.10 Cervical disc disorder with radiculopathy, unspecified cervical region (principal)
CPT/HCPCS: 62321; J1100; Q9967

== ENCOUNTER → 2019-09-29 | Outpatient (CLI) | payer MEDICARE ==
[~2019-09-29] MED LIST changes: -ISOVUE-M 300 61% 15ML VIAL As Ordered ONE; -LIDOCAINE 1% SDV 30ML VIAL As Ordered ONE; -dexameTHASONE 10MG/1ML VIAL PRES.FREE (J1100 PER 1MG) As Ordered ONE; -diazePAM 5 MG TAB As Ordered ONE; -oxyCODONE 5MG TAB As Ordered ONE
--- NOTE | 2019-10-04 01:54 | ECWPNPC ---
PATIENT NAME: KIMBERLEY VALENCIA : 1965 GENDER: MALE VISIT DATE: 09/29/2019 DISCHARGE DATE: 09/29/19 1103 VISIT LOCKED DATE TIME: PHYSICIAN: WILLIAM FREEMAN RESOURCE: WILLIAM FREEMAN REASON FOR APPOINTMENT 1. POST JHON [phone] PAT DONE HISTORY OF PRESENT ILLNESS GENERAL: PATIENT IS AGREEABLE TO TELEMED VISIT VIA ZOOM. THIS IS A POST PROCEDURE FOLLOW-UP. HAD C7-T1 CERVICAL EPIDURAL STEROID INJECTION ON 09/13/2019. REPORTING MARKED REDUCTION IN HEADACHE PAIN WELL LEFT ARM PAIN AND TINGLING IN HIS HANDS. CONTINUES TO BENEFIT FROM PROCEDURE THAT WE DID ON THE LUMBAR SPINE. STATES THAT THIS IS THE BEST HE HAS FELT IN MANY MONTHS. REPORTS USING LESS PAIN MEDICATION SINCE PROCEDURE. -. FALL RISK SCREENING: SCREENING :NO FALLS REPORTED IN THE LAST YEAR PAIN SCREENING: PATIENT HAS A COMPLAINT OF ACUTE OR CHRONIC PAIN :YES LOCATION OF PAIN:NECK INTENSITY OF PAIN (SCALE OF 1 TO 10):1 WHAT DOES YOUR PAIN FEEL LIKE:ACHING, CONTINOUS NURSING NOTE: -. PAIN CENTER INTAKE QUESTIONS: DO YOU HAVE A HISTORY OF MRSA? :NO DO YOU TAKE A BLOOD THINNERS? :NO DO YOU HAVE ANY BLEEDING DISORDERS? :NO ANY NEW NUMBNESS OR WEAKNESS IN YOUR LEGS OR ARMS? :NO ANY PACEMAKER,DEFIBRILLATOR, OR DORSAL COLUMN STIMULATOR? :NO DO YOU HAVE ANY RASHES OR OPEN SORES? :NO ARE YOU ALLERGIC TO IV DYE? :NO ARE YOU DIABETIC? :NO ANY NEW PROBLEMS WITH YOUR MEDICATIONS? :NO HAVE YOU RECEIVED A VACCINE IN THE PAST 30 DAYS? :NO DO YOU PLAN TO RECEIVE A VACCINE IN THE NEXT 21 DAYS? :NO DO YOU NEED ANY PRESCRIPTION? :NO DO YOU TAKE ANY IMMUNOSUPPRESSIVE MEDICATIONS? :NO IS THERE A CHANCE YOU COULD BE ? :NO ARE YOU BREAST FEEDING? :NO CURRENT MEDICATIONS TAKING ARTIFICIAL TEARS 0.4 % SOLUTION 1 DROP INTO AFFECTED EYE NEEDED OPHTHALMIC ONCE A DAY TAKING NEXIUM 24HR 20 MG CAPSULE DELAYED RELEASE 1 CAPSULE ORALLY ONCE A DAY TAKING TESTOSTERONE CYPIONATE 200 MG/ML OIL 0.8 ML INTRAMUSCULAR(DR KIERRA ELMORE) EVERY 10 DAYS, NOTES: Q 10 DAYS TAKING RESTASIS 0.05 % EMULSION 1 DROP INTO AFFECTED EYE OPHTHALMIC TWICE A DAY TAKING AMLODIPINE BESYLATE 10 MG TABLET 1 TABLET ORALLY ONCE A DAY TAKING VITAMIN D3 2000 UNIT CAPSULE 1 CAPSULE ORALLY ONCE A DAY TAKING LISINOPRIL-HYDROCHLOROTHIAZIDE 20-25 MG TABLET 1 TABLET ORALLY ONCE A DAY TAKING FERROUS SULFATE 325 (65 FE) MG TABLET 1 TABLET ORALLY ONCE A DAY TAKING CYMBALTA 30 MG CAPSULE DELAYED RELEASE PARTICLES 1 CAPSULE ORALLY BID TAKING CYCLOBENZAPRINE HCL 10 MG TABLET 1 TAB ORALLY Q8H PRN MUSCLE SPASM PAIN TAKING OXYCODONE-ACETAMINOPHEN 10-325 MG TABLET 1 TABLET NEEDED ORALLY EVERY 6 HRS MDD4 MEDICATION LIST REVIEWED AND RECONCILED WITH THE PATIENT PAST MEDICAL HISTORY HYPERTENSION BARRETS ESOPHAGUS SLEEP APNEA [place] WITH CPAP (PULM ASSOC) BACK PAIN - ([facility]) HYPOTESTOSTERONEMIA (Jermaine ELMORE) MAJOR DEPRESSION, SINGLE EPISODE (MANISH) ANXIETY OA (MULTIPLE LOCATIONS) ASCVD 10-YEAR RISK IS 5.3% IN 08/2016 OSCAR'S ESOPHAGUS: GASTRO IN [place] IBS ARTHRITIS ALLERGIES PENICILLIN (FOR ALLERGIES USE ONLY): FEET SWELLS - ALLERGY SURGICAL HISTORY TONSILLECTOMY CHILD BILATERAL CARPAL TUNNEL (FISH) 2009 EGD/COLONOSCOPY (KATHRYN IN [place]) 11/2011 LEFT ELBOW CUBITAL TUNNEL TRANSLATION (FISH) 2012 RIGHT CARPAL TUNNEL 07/05/13 COLO/EGD- KATHRYN-[place]- MILD ESOPHAGITIS 05/20 BACK SURGERY- DR SALGADO SOS 01/2017 HERNIA REPAIR 2018 FAMILY HISTORY FATHER: 70 YRS, PROSTATE CA AT AGE 65, DIAGNOSED WITH HYPERTENSION MOTHER: 76 YRS, DIABETES SIBLINGS: BROTHER CROHN'S SISTER THYROID DISEASE DAUGHTER(S): ALIVE, DAUGHTER MVA 1DAUGHTER(S) - HEALTHY. LIVER FAILURE. SOCIAL HISTORY GENERAL: TOBACCO USE ARE YOU A:NONSMOKER LATEX QUESTIONNAIRE LATEX ALLERGY : HAVE YOU EVER DEVELOPED ANY TYPE OF REACTION AFTER HANDLING LATEX PRODUCTS SUCH RUBBER GLOVES, CONDOMS, DIAPHRAGMS, BALLOONS, SOCKS, OR UNDERWEAR?NO LATEX ALLERGY : HAVE YOU EVER DEVELOPED ANY TYPE OF REACTION DURING OR AFTER DENTAL APPOINTMENT, VAGINAL/RECTAL EXAMINATION, SURGICAL PROCEDURE, OR ANY OTHER EXPOSURE?NO LATEX RISK : HAVE YOU EVER HAD ANY DIFFICULTY BREATHING OR HIVES AFTER EATING OR HANDLING ANY FRUITS, OR VEGETABLES; SUCH KIWI, BANANAS, STONE FRUITS, OR CHESTNUTSNO LATEX RISK : DO YOU HAVE A PREVIOUS PERSONAL HISTORY OF MORE THAN NINE SURGERIES, SPINA BIFIDA, OR REPEATED CATHERIZATIONS? NO LATEX RISK : ARE YOU FREQUENTLY EXPOSED TO LATEX PRODUCTS IN YOUR OCCUPATION?NO DATE ASKED : 09/28/2019 BMI CARE GOAL FOLLOW-UP ABOVE NORMAL BMI FOLLOW-UPLIFESTYLE EDUCATION REGARDING DIET ALCOHOL SCREENING DID YOU HAVE A DRINK CONTAINING ALCOHOL IN THE PAST YEAR?NO POINTS0 INTERPRETATIONNEGATIVE RECREATIONAL DRUG USE DRUG USE?NO PATIENT DENIES ABUSE OR MISSUSED OF ANY MEDICATION. PATIENT DENIES USE OF ANY ILLEGAL SUBSTANCE INCLUDING MARIJUANA OR COCAINE. CAFFEINE CAFFEINE USE?YES 1 COFFEE DAILY SEXUAL HX HAD SEX IN THE LAST 12 MONTHS (VAGINAL, ORAL, OR ANAL)?YES WITHWOMEN ONLY USE PROTECTION?NO HAVE YOU EVER HAD AN STD?NO HIV / HEP-C SCREENING HIV TEST OFFERED TO PATIENT:YES DATE OFFERED:01/28/2017 TEST ACCEPTED:NO HEP-C TEST OFFERED TO PATIENT:NO REASON:PATIENT DECLINED HINDUISM [id number] BUDDHISM LANGUAGE LANGUAGES SPOKEN:KAZAKH EDUCATION LEVEL OF EDUCATION:HIGH SCHOOL LEARNING BARRIERS / SPECIAL NEEDS CHANGE FROM LAST VISIT?NO BARRIERS TO LEARNING?NO HEARING IMPAIRED?YES VISION IMPAIRED?NO COGNITIVELY IMPAIRED?NO :HEARING AIDES C/O INCREASED HEARING LOSS READINESS TO LEARN?YES LEARNING PREFERENCES?NO LEARNING CAPABILITIES PRESENT?YES EMOTIONAL BARRIERS?NO SPECIAL DEVICES?YES 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 DIET: REGULAR. EXERCISE: NO REGULAR EXERCISE. MARITAL STATUS: . OTHERS AT HOME: SPOUSE. PAIN CLINIC PFS, CLERGY, PUBLIC HEALTH REFERRALS PFS REFERRAL NEEDED?NO CLERGY REFERRAL NEEDED?NO PUBLIC HEALTH REFERRAL NEEDED?NO WAS THE PROVIDER NOTIFIED OF ANY PERTINENT INFO?YES HAS THE PATIENT BEEN EDUCATED REGARDING HIS/HER PLAN OF CARE?YES HAS THE PATIENT BEEN EDUCATED REGARDING PAIN, THE RISK FOR PAIN, THE IMPORTANCE OF EFFECTIVE PAIN MANAGEMENT, AND THE PAIN ASSESSMENT PROCESS?YES ADVANCE DIRECTIVE ADVANCE DIRECTIVE DISCUSSED WITH PATIENT:YES HCP-LAUREL VALENCIA HOSPITALIZATION/MAJOR DIAGNOSTIC PROCEDURE CHEST PAIN/DYSPNEA, R/O AR ([place]) 10/15 BACK SURGERY 01/2017 NECK AND LEFT SIDED PAIN AND WEAKNESS 08/2018 REVIEW OF SYSTEMS CONSTITUTIONAL: ANY RECENT FEVER NO . CHILLS NO . WEIGHT CHANGE OF UNKNOWN REASONS NO . GASTROENTEROLOGY: NEW UNEXPLAINABLE CHANGES IN BOWEL CONTROL NO . CONSTIPATION NO . GENITOURINARY: ANY NEW CHANGE IN BLADDER CONTROL? NO . NEUROLOGY: NEW ONSET DIZZINESS OR NEUROLOGICAL CHANGES NOT MENTIONED NO . NEW NUMBNESS OR PAIN PATTERNS NOT MENTIONED AND PERTINENT TO TODAY'S VISIT NO . CARDIOLOGY: NEW CHEST PRESSURE NO . NEW CHEST PAIN NO . RESPIRATORY: UNEXPLAINABLE COUGH NO . NEW SHORTNESS OF BREATH NO . ASSESSMENTS CERVICAL DISC DISORDER WITH RADICULOPATHY OF CERVICAL REGION - M50.10 (PRIMARY) TREATMENT CERVICAL DISC DISORDER WITH RADICULOPATHY OF CERVICAL REGION NOTES: ADVISED TO USE PAIN MEDICATIONS SPARINGLY FOR SEVERE PAIN EPISODES. THIS WILL HELP DETER TOLERANCE ISSUES AND WILL ALLOW PAIN MEDICATION TO WORK WHEN HE IS HAVING SEVERE PAIN. FOLLOW-UP IS SCHEDULED AT PAIN CLINIC IN 3 MONTHS. ENCOURAGED TO CALL US SHOULD HIS CONDITION CHANGE. TOTAL TIME SPENT DURING TELEMED VISIT WAS APPROXIMATELY 12 MINUTES. DISPOSITION & COMMUNICATION FOLLOW UP 3 MONTHS (REASON: NECK/LOW BACK/MED MANAGEMENT) ELECTRONICALLY SIGNED BY HARDIK COLUNGA ON 10/03/2019 AT 10:04 AM EDT DISCLAIMER : THIS IS A VISIT SUMMARY EXTRACTED FROM THE [employer] CHART. IT IS NOT A COPY OF THE [employer] PROGRESS NOTE. ENE
== END ==
LOC: M TMPAIN 10:45 → M PAIN 10:45
PROVIDERS: ATTEND Nurse Practitioner Family
DX: M50.10 Cervical disc disorder with radiculopathy, unspecified cervical region (principal); Z79.891 Long term (current) use of opiate analgesic; Z79.899 Other long term (current) drug therapy; Z88.0 Allergy status to penicillin

== ENCOUNTER → 2020-01-01 | Outpatient (CLI) | payer MEDICARE ==
[~2020-01-01] MED LIST changes: -AMLO10TA5 PO; +AMLO1TAB25 PO
== END ==
LOC: M PAIN 10:24
PROVIDERS: ATTEND Nurse Practitioner Family
DX: M47.817 Spondylosis without myelopathy or radiculopathy, lumbosacral region (principal); Z79.891 Long term (current) use of opiate analgesic; Z88.0 Allergy status to penicillin; Z79.899 Other long term (current) drug therapy

== ENCOUNTER → 2020-04-25 | Outpatient (CLI) | payer MEDICARE ==
[~2020-04-25] MED LIST changes: -ESCI20TA PO; +ESCI20TA16 PO; +LISI10TA22 PO; -LISI10TA4 PO; +METH-1164 PO; -METH1TAB40 PO
--- NOTE | 2020-04-27 03:15 | ECWPNPC ---
PATIENT NAME: KIMBERLEY VALENCIA : 1965 GENDER: MALE VISIT DATE: 04/25/2020 DISCHARGE DATE: 04/25/20830 VISIT LOCKED DATE TIME: PHYSICIAN: WILLIAM FREEMAN PHYSICIAN PAGER NO: ACTIVE RESOURCE: WILLIAM FREEMAN REASON FOR APPOINTMENT 1. NECK/LOW BACK/MED MANAGEMENT HISTORY OF PRESENT ILLNESS PAIN CENTER INTAKE QUESTIONS: DO YOU HAVE A HISTORY OF MRSA? :NO DO YOU TAKE A BLOOD THINNERS? :NO DO YOU HAVE ANY BLEEDING DISORDERS? :NO ANY NEW NUMBNESS OR WEAKNESS IN YOUR LEGS OR ARMS? :NO ANY PACEMAKER,DEFIBRILLATOR, OR DORSAL COLUMN STIMULATOR? :NO DO YOU HAVE ANY RASHES OR OPEN SORES? :NO ARE YOU ALLERGIC TO IV DYE? :NO ARE YOU DIABETIC? :NO ANY NEW PROBLEMS WITH YOUR MEDICATIONS? :NO HAVE YOU RECEIVED A VACCINE IN THE PAST 30 DAYS? :NO DO YOU PLAN TO RECEIVE A VACCINE IN THE NEXT 21 DAYS? :NO DO YOU NEED ANY PRESCRIPTION? :YES PERCOCET REFILL DO YOU TAKE ANY IMMUNOSUPPRESSIVE MEDICATIONS? :NO IS THERE A CHANCE YOU COULD BE ? :NO ARE YOU BREAST FEEDING? :NO GENERAL: PATIENT IS AGREEABLE TO TELEPHONE VISIT TODAY. HAS BEEN EXPOSED TO COVID 19. PATIENT FEELS HE IS DOING WELL IN REGARDS TO CHRONIC NECK AND LOW BACK PAIN. STATES HE HAS BEEN DOING WELL OVER THE PAST 8 MONTHS. STATES HE'S TRYING TO BE MORE ACTIVE. DISCUSSED LOWERING PERCOCET DOSAGE. CURRENTLY USING PERCOCET 10/325 4 TABLETS DAILY. HE WOULD LIKE TO BE ON THE LOWER DOSE TO SEE IF HE CAN TOLERATE THAT.-. FALL RISK SCREENING: SCREENING :NO FALLS REPORTED IN THE LAST YEAR PAIN SCREENING: PATIENT HAS A COMPLAINT OF ACUTE OR CHRONIC PAIN :YES LOCATION OF PAIN:UPPER BACK, MID BACK, LOW BACK INTENSITY OF PAIN (SCALE OF 1 TO 10):2 WHAT DOES YOUR PAIN FEEL LIKE:STABBING POUNDING DURATION:MAINLY DURING THE DAY, INTERMITTENT PAIN IS INCREASED BY:ACTIVITIES PAIN IS DECREASED BY:USE OF PAIN MEDICATIONS LAYING DOWN, PERCOCET TREATMENT/MEDICATIONS USED TO MANAGE PAIN: PERCOCET NURSING NOTE: -. CURRENT MEDICATIONS TAKING ARTIFICIAL TEARS 0.4 % SOLUTION 1 DROP INTO AFFECTED EYE NEEDED OPHTHALMIC ONCE A DAY TAKING NEXIUM 24HR 20 MG CAPSULE DELAYED RELEASE 1 CAPSULE ORALLY ONCE A DAY TAKING TESTOSTERONE CYPIONATE 200 MG/ML OIL 0.8 ML INTRAMUSCULAR(DR KIERRA ELMORE) EVERY 10 DAYS, NOTES: Q 10 DAYS TAKING RESTASIS 0.05 % EMULSION 1 DROP INTO AFFECTED EYE OPHTHALMIC TWICE A DAY TAKING AMLODIPINE BESYLATE 10 MG TABLET 1 TABLET ORALLY ONCE A DAY TAKING VITAMIN D3 2000 UNIT CAPSULE 1 CAPSULE ORALLY ONCE A DAY TAKING LISINOPRIL-HYDROCHLOROTHIAZIDE 20-25 MG TABLET 1 TABLET ORALLY ONCE A DAY TAKING FERROUS SULFATE 325 (65 FE) MG TABLET 1 TABLET ORALLY ONCE A DAY TAKING CYMBALTA 30 MG CAPSULE DELAYED RELEASE PARTICLES 1 CAPSULE ORALLY BID TAKING CYCLOBENZAPRINE HCL 10 MG TABLET 1 TAB ORALLY Q8H PRN MUSCLE SPASM PAIN TAKING OXYCODONE-ACETAMINOPHEN 10-325 MG TABLET 1 TABLET NEEDED ORALLY EVERY 6 HRS MDD4 MEDICATION LIST REVIEWED AND RECONCILED WITH THE PATIENT PAST MEDICAL HISTORY HYPERTENSION BARRETS ESOPHAGUS SLEEP APNEA TX WITH CPAP (PULEmelia MAURICIO) BACK PAIN - ([facility]) HYPOTESTOSTERONEMIA (Jermaine ELMORE) MAJOR DEPRESSION, SINGLE EPISODE (MANISH) ANXIETY OA (MULTIPLE LOCATIONS) ASCVD 10-YEAR RISK IS 5.3% IN 08/2016 OSCAR'S ESOPHAGUS: GASTRO IN [place] IBS ARTHRITIS ALLERGIES PENICILLIN (FOR ALLERGIES USE ONLY): FEET SWELLS - ALLERGY SOCIAL HISTORY GENERAL: TOBACCO USE ARE YOU A:NONSMOKER LATEX QUESTIONNAIRE LATEX ALLERGY : HAVE YOU EVER DEVELOPED ANY TYPE OF REACTION AFTER HANDLING LATEX PRODUCTS SUCH RUBBER GLOVES, CONDOMS, DIAPHRAGMS, BALLOONS, SOCKS, OR UNDERWEAR?NO LATEX ALLERGY : HAVE YOU EVER DEVELOPED ANY TYPE OF REACTION DURING OR AFTER DENTAL APPOINTMENT, VAGINAL/RECTAL EXAMINATION, SURGICAL PROCEDURE, OR ANY OTHER EXPOSURE?NO LATEX RISK : HAVE YOU EVER HAD ANY DIFFICULTY BREATHING OR HIVES AFTER EATING OR HANDLING ANY FRUITS, OR VEGETABLES; SUCH KIWI, BANANAS, STONE FRUITS, OR CHESTNUTSNO LATEX RISK : DO YOU HAVE A PREVIOUS PERSONAL HISTORY OF MORE THAN NINE SURGERIES, SPINA BIFIDA, OR REPEATED CATHERIZATIONS? NO LATEX RISK : ARE YOU FREQUENTLY EXPOSED TO LATEX PRODUCTS IN YOUR OCCUPATION?NO DATE ASKED : 04/25/2020 BMI CARE GOAL FOLLOW-UP ABOVE NORMAL BMI FOLLOW-UPLIFESTYLE EDUCATION REGARDING DIET ALCOHOL SCREENING DID YOU HAVE A DRINK CONTAINING ALCOHOL IN THE PAST YEAR?NO POINTS0 INTERPRETATIONNEGATIVE RECREATIONAL DRUG USE DRUG USE?NO PATIENT DENIES ABUSE OR MISSUSED OF ANY MEDICATION. PATIENT DENIES USE OF ANY ILLEGAL SUBSTANCE INCLUDING MARIJUANA OR COCAINE. CAFFEINE CAFFEINE USE?YES 1 COFFEE DAILY SEXUAL HX HAD SEX IN THE LAST 12 MONTHS (VAGINAL, ORAL, OR ANAL)?YES WITHWOMEN ONLY USE PROTECTION?NO HAVE YOU EVER HAD AN STD?NO HIV / HEP-C SCREENING HIV TEST OFFERED TO PATIENT:YES DATE OFFERED:01/28/2017 TEST ACCEPTED:NO HEP-C TEST OFFERED TO PATIENT:NO REASON:PATIENT DECLINED RASTAFARIAN [id number] RELIGIOUS LANGUAGE LANGUAGES SPOKEN:MONEGASQUE EDUCATION LEVEL OF EDUCATION:HIGH SCHOOL LEARNING BARRIERS / SPECIAL NEEDS CHANGE FROM LAST VISIT?NO BARRIERS TO LEARNING?NO HEARING IMPAIRED?YES :HEARING AIDES C/O INCREASED HEARING LOSS VISION IMPAIRED?NO COGNITIVELY IMPAIRED?NO READINESS TO LEARN?YES LEARNING PREFERENCES?NO LEARNING CAPABILITIES PRESENT?YES EMOTIONAL BARRIERS?NO SPECIAL DEVICES?YES :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 DIET: REGULAR. EXERCISE: NO REGULAR EXERCISE. MARITAL STATUS: . OTHERS AT HOME: SPOUSE. - PFS REFERRAL NEEDED?NO CLERGY REFERRAL NEEDED?NO PUBLIC HEALTH REFERRAL NEEDED?NO WAS THE PROVIDER NOTIFIED OF ANY PERTINENT INFO?YES HAS THE PATIENT BEEN EDUCATED REGARDING HIS/HER PLAN OF CARE?YES HAS THE PATIENT BEEN EDUCATED REGARDING PAIN, THE RISK FOR PAIN, THE IMPORTANCE OF EFFECTIVE PAIN MANAGEMENT, AND THE PAIN ASSESSMENT PROCESS?YES ADVANCE DIRECTIVE ADVANCE DIRECTIVE DISCUSSED WITH PATIENT:YES HCP-LAUREL VALENCIA REVIEW OF SYSTEMS CONSTITUTIONAL: ANY RECENT FEVER NO . CHILLS NO . WEIGHT CHANGE OF UNKNOWN REASONS NO . GASTROENTEROLOGY: NEW UNEXPLAINABLE CHANGES IN BOWEL CONTROL NO . CONSTIPATION NO . GENITOURINARY: ANY NEW CHANGE IN BLADDER CONTROL? NO . NEUROLOGY: NEW ONSET DIZZINESS OR NEUROLOGICAL CHANGES NOT MENTIONED NO . NEW NUMBNESS OR PAIN PATTERNS NOT MENTIONED AND PERTINENT TO TODAY'S VISIT NO . CARDIOLOGY: NEW CHEST PRESSURE NO . NEW CHEST PAIN NO . RESPIRATORY: UNEXPLAINABLE COUGH NO . NEW SHORTNESS OF BREATH NO . VITAL SIGNS WT 226.6 LBS, WT-KG 0 KG, HT 68 IN, BMI 34.45 INDEX, BP 0 MM HG, REPEAT BP 0 MM HG, RR 0 /MIN, SAFE IN ENV? (Y/N) YES, REVIEWED BY: ELVIRA TO OBTAIN VITAL SIGNS DUE TO PHONE VISIT. RACHID DUKES MA. ASSESSMENTS INTERVERTEBRAL DISC DISORDERS WITH RADICULOPATHY, LUMBOSACRAL REGION - M51.17 TREATMENT INTERVERTEBRAL DISC DISORDERS WITH RADICULOPATHY, LUMBOSACRAL REGION DECREASE OXYCODONE-ACETAMINOPHEN TABLET, 7.5-325 MG, 1 TABLET NEEDED, ORALLY, EVERY 6 HRS MDD4, 30 DAYS, 120, REFILLS 0 NOTES: TODAY WE'LL DECREASE PERCOCET TO 7.5/325 EVERY 6 HOURS NEEDED FOR SEVERE PAIN. HE WILL BE SCHEDULED FOR A CLINIC VISIT FOR URINE TOXICOLOGY AND PILL IDENTIFICATION. DISPOSITION & COMMUNICATION FOLLOW UP 6 WEEKS (REASON: URINE TOX/PILL EVAL/IN CLINIC) ELECTRONICALLY SIGNED BY HARDIK COLUNGA ON 04/26/2020 AT 09:31 AM EST DISCLAIMER : THIS IS A VISIT SUMMARY EXTRACTED FROM THE [employer] CHART. IT IS NOT A COPY OF THE [employer] PROGRESS NOTE. ENE
== END ==
LOC: M PAIN 09:30
PROVIDERS: ATTEND Nurse Practitioner Family
DX: M51.17 Intervertebral disc disorders with radiculopathy, lumbosacral region (principal); G89.29 Other chronic pain; G47.30 Sleep apnea, unspecified; Z86.59 Personal history of other mental and behavioral disorders; Z88.0 Allergy status to penicillin; Z79.899 Other long term (current) drug therapy

== ENCOUNTER → 2020-06-06 | Outpatient (CLI) | payer MEDICARE ==
--- NOTE | 2020-06-14 05:09 | ECWPNPC ---
PATIENT NAME: KIMBERLEY VALENCIA : 1965 GENDER: MALE VISIT DATE: 06/06/2020 DISCHARGE DATE: 06/06/20 1025 VISIT LOCKED DATE TIME: PHYSICIAN: WILLIAM FREEMAN PHYSICIAN PAGER NO: ACTIVE RESOURCE: WILLIAM FREEMAN REASON FOR APPOINTMENT 1. URINE TOX/PILL EVAL/IN CLINIC HISTORY OF PRESENT ILLNESS DEPRESSION SCREENING: PHQ-2 (2015 EDITION) LITTLE INTEREST OR PLEASURE IN DOING THINGS?NOT AT ALL FEELING DOWN, DEPRESSED, OR HOPELESS?NOT AT ALL TOTAL SCORE0 GENERAL: HERE FOR F/U AND MEDICATION MANAGEMENT FOR LOW BACK PAIN AND NECK PAIN.WE TRIED LOWERING DOSE OF PERCOCET AT HIS LAST VISIT.HE CALLED TWO WEEKS LATTER AND REQUESTED DOSE BE RAISED HE WAS NOT ABLE TO FUNCTION. -. FALL RISK SCREENING: SCREENING : TWO OR MORE FALLS WITHOUT INJURY IN THE PAST YEAR. PAIN SCREENING: PATIENT HAS A COMPLAINT OF ACUTE OR CHRONIC PAIN :YES LOCATION OF PAIN:NECK, LOW BACK INTENSITY OF PAIN (SCALE OF 1 TO 10):2 WHAT DOES YOUR PAIN FEEL LIKE:ACHING DURATION:CONTINOUS, CONSTANT, ALL DAY PAIN IS INCREASED BY:ACTIVITIES PAIN IS DECREASED BY:USE OF PAIN MEDICATIONS NURSING NOTE: -. PAIN CENTER INTAKE QUESTIONS: DO YOU HAVE A HISTORY OF MRSA? :NO DO YOU TAKE A BLOOD THINNERS? :NO DO YOU HAVE ANY BLEEDING DISORDERS? :NO ANY NEW NUMBNESS OR WEAKNESS IN YOUR LEGS OR ARMS? :NO ANY PACEMAKER,DEFIBRILLATOR, OR DORSAL COLUMN STIMULATOR? :NO DO YOU HAVE ANY RASHES OR OPEN SORES? :YES ALL OVER UR BODY ARE YOU ALLERGIC TO IV DYE? :NO ARE YOU DIABETIC? :NO ANY NEW PROBLEMS WITH YOUR MEDICATIONS? :NO HAVE YOU RECEIVED A VACCINE IN THE PAST 30 DAYS? :NO DO YOU PLAN TO RECEIVE A VACCINE IN THE NEXT 21 DAYS? :NO DO YOU NEED ANY PRESCRIPTION? :NO DO YOU TAKE ANY IMMUNOSUPPRESSIVE MEDICATIONS? :NO IS THERE A CHANCE YOU COULD BE ? :NO ARE YOU BREAST FEEDING? :NO CURRENT MEDICATIONS TAKING ARTIFICIAL TEARS 0.4 % SOLUTION 1 DROP INTO AFFECTED EYE NEEDED OPHTHALMIC ONCE A DAY TAKING NEXIUM 24HR 20 MG CAPSULE DELAYED RELEASE 1 CAPSULE ORALLY ONCE A DAY TAKING TESTOSTERONE CYPIONATE 200 MG/ML OIL 0.8 ML INTRAMUSCULAR(DR KIERRA ELMORE) EVERY 10 DAYS TAKING RESTASIS 0.05 % EMULSION 1 DROP INTO AFFECTED EYE OPHTHALMIC TWICE A DAY TAKING AMLODIPINE BESYLATE 10 MG TABLET 1 TABLET ORALLY ONCE A DAY TAKING VITAMIN D3 2000 UNIT CAPSULE 1 CAPSULE ORALLY ONCE A DAY TAKING LISINOPRIL-HYDROCHLOROTHIAZIDE 20-25 MG TABLET 1 TABLET ORALLY ONCE A DAY TAKING FERROUS SULFATE 325 (65 FE) MG TABLET 1 TABLET ORALLY ONCE A DAY TAKING CYMBALTA 30 MG CAPSULE DELAYED RELEASE PARTICLES 1 CAPSULE ORALLY BID TAKING CYCLOBENZAPRINE HCL 10 MG TABLET 1 TAB ORALLY Q8H PRN MUSCLE SPASM PAIN TAKING OXYCODONE-ACETAMINOPHEN 10-325 MG TABLET 1 TABLET NEEDED ORALLY EVERY 6 HRS MDD4 MEDICATION LIST REVIEWED AND RECONCILED WITH THE PATIENT PAST MEDICAL HISTORY HYPERTENSION BARRETS ESOPHAGUS SLEEP APNEA TX WITH CPAP (MYA MAURICIO) BACK PAIN - ([facility]) HYPOTESTOSTERONEMIA (Jermaine ELMORE) MAJOR DEPRESSION, SINGLE EPISODE (MANISH) ANXIETY OA (MULTIPLE LOCATIONS) ASCVD 10-YEAR RISK IS 5.3% IN 08/2016 OSCAR'S ESOPHAGUS: GASTRO IN [place] IBS ARTHRITIS ALLERGIES PENICILLIN (FOR ALLERGIES USE ONLY): FEET SWELLS - ALLERGY SOCIAL HISTORY GENERAL: TOBACCO USE ARE YOU A:NONSMOKER LATEX QUESTIONNAIRE LATEX ALLERGY : HAVE YOU EVER DEVELOPED ANY TYPE OF REACTION AFTER HANDLING LATEX PRODUCTS SUCH RUBBER GLOVES, CONDOMS, DIAPHRAGMS, BALLOONS, SOCKS, OR UNDERWEAR?NO LATEX ALLERGY : HAVE YOU EVER DEVELOPED ANY TYPE OF REACTION DURING OR AFTER DENTAL APPOINTMENT, VAGINAL/RECTAL EXAMINATION, SURGICAL PROCEDURE, OR ANY OTHER EXPOSURE?NO LATEX RISK : HAVE YOU EVER HAD ANY DIFFICULTY BREATHING OR HIVES AFTER EATING OR HANDLING ANY FRUITS, OR VEGETABLES; SUCH KIWI, BANANAS, STONE FRUITS, OR CHESTNUTSNO LATEX RISK : DO YOU HAVE A PREVIOUS PERSONAL HISTORY OF MORE THAN NINE SURGERIES, SPINA BIFIDA, OR REPEATED CATHERIZATIONS? NO LATEX RISK : ARE YOU FREQUENTLY EXPOSED TO LATEX PRODUCTS IN YOUR OCCUPATION?NO DATE ASKED : 06/06/2020 ALCOHOL USE: NO. BMI CARE GOAL FOLLOW-UP ABOVE NORMAL BMI [facility] REGARDING DIET ALCOHOL SCREENING DID YOU HAVE A DRINK CONTAINING ALCOHOL IN THE PAST YEAR?NO POINTS0 INTERPRETATIONNEGATIVE RECREATIONAL DRUG USE DRUG USE?NO PATIENT DENIES ABUSE OR MISSUSED OF ANY MEDICATION. PATIENT DENIES USE OF ANY ILLEGAL SUBSTANCE INCLUDING MARIJUANA OR COCAINE. CAFFEINE CAFFEINE USE?YES 1 COFFEE DAILY SEXUAL HX HAD SEX IN THE LAST 12 MONTHS (VAGINAL, ORAL, OR ANAL)?YES WITHWOMEN ONLY USE PROTECTION?NO HAVE YOU EVER HAD AN STD?NO HIV / HEP-C SCREENING HIV TEST OFFERED TO PATIENT:YES DATE OFFERED:01/28/2017 TEST ACCEPTED:NO HEP-C TEST OFFERED TO PATIENT:NO REASON:PATIENT DECLINED ROMAN CATHOLIC [id number] AMISH LANGUAGE LANGUAGES SPOKEN:SIERRA LEONEAN EDUCATION LEVEL OF EDUCATION:HIGH SCHOOL LEARNING BARRIERS / SPECIAL NEEDS CHANGE FROM LAST VISIT?YES BARRIERS TO LEARNING?NO HEARING IMPAIRED?YES :HEARING AIDES C/O INCREASED HEARING LOSS VISION IMPAIRED?YES :CORRECTIVE LENSES COGNITIVELY IMPAIRED?NO READINESS TO LEARN?YES LEARNING PREFERENCES?NO LEARNING CAPABILITIES PRESENT?YES EMOTIONAL BARRIERS?NO 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 DIET: REGULAR. EXERCISE: NO REGULAR EXERCISE. MARITAL STATUS: . OTHERS AT HOME: SPOUSE. - PFS REFERRAL NEEDED?NO CLERGY REFERRAL NEEDED?NO PUBLIC HEALTH REFERRAL NEEDED?NO WAS THE PROVIDER NOTIFIED OF ANY PERTINENT INFO?YES HAS THE PATIENT BEEN EDUCATED REGARDING HIS/HER PLAN OF CARE?YES HAS THE PATIENT BEEN EDUCATED REGARDING PAIN, THE RISK FOR PAIN, THE IMPORTANCE OF EFFECTIVE PAIN MANAGEMENT, AND THE PAIN ASSESSMENT PROCESS?YES ADVANCE DIRECTIVE ADVANCE DIRECTIVE DISCUSSED WITH PATIENT:YES HCP-LAUREL VALENCIA REVIEW OF SYSTEMS CONSTITUTIONAL: ANY RECENT FEVER NO . CHILLS NO . WEIGHT CHANGE OF UNKNOWN REASONS NO . GASTROENTEROLOGY: NEW UNEXPLAINABLE CHANGES IN BOWEL CONTROL NO . CONSTIPATION NO . GENITOURINARY: ANY NEW CHANGE IN BLADDER CONTROL? NO . NEUROLOGY: NEW ONSET DIZZINESS OR NEUROLOGICAL CHANGES NOT MENTIONED NO . NEW NUMBNESS OR PAIN PATTERNS NOT MENTIONED AND PERTINENT TO TODAY'S VISIT NO . CARDIOLOGY: NEW CHEST PRESSURE NO . PATIENT DENIES NO . RESPIRATORY: UNEXPLAINABLE COUGH NO . NEW SHORTNESS OF BREATH NO . VITAL SIGNS WT 237.2 LBS, HT 68 IN, BMI 36.06 INDEX, BP 181/97 MM HG, REPEAT BP 158/94 MM HG, HR 93 /MIN, RR 18 /MIN, TEMP 97.4 F, OXYGEN SAT % 99%, SAFE IN ENV? (Y/N) YES, NA INITIALS WA 09:45T.JESSICA GONSALES. EXAMINATION GENERAL EXAMINATION: GENERALAWAKE,ALERT ,PLEASANT . PSYCHAFFECT NORMAL . LUNGS:LUNG KLINE ARE CLEAR TO AUSCULTATION BILATERALLY. GOOD MOVEMENT OF AIR . HEART:S1, S2 IN A REGULAR RATE AND RHYTHM. NO SIGNIFICANT MURMURS, RUBS OR GALLOPS NOTED . ASSESSMENTS CHRONIC PRESCRIPTION OPIATE USE - Z79.899 (PRIMARY) INTERVERTEBRAL DISC DISORDERS WITH RADICULOPATHY, LUMBOSACRAL REGION - M51.17 TREATMENT CHRONIC PRESCRIPTION OPIATE USE LAB: URINE TEST GROUP TUCKER LOPEZ 06/06/2020 10:15:49 AM > LAST DOSE: OXYCODONE 06/05/2020 NOTES: PATIENT FORGOT HIS MEDICATION THIS AM.HE WILL BE SCHEDULED FOR NUSE VISIT/PILL COUNT/IDENTIFICATION IN 6 WEEKS. , ISTOP REGISTRY REVIEWED AND DEMONSTRATES COMPLLIANCE. FORGOT TO BRING IN MEDICATION RECENT URINE TOXICOLOGY REVIEWED. NO UNAUTHORIZED MEDICATIONS. NO ILLICIT SUBSTANCES AND PRESCRIBED MEDICATIONS WERE PRESENT. PROCEDURE CODES [id number] ESTABILISHED PATIENT [facility] CHARGE DISPOSITION & COMMUNICATION FOLLOW UP 6WKS NURSE VISIT/PILL COUNT/ID 3MOS COYOTE HUNTER VISIT (REASON: REVIEW UTOX/MED MANAGEMENT/NECK/LBP) ELECTRONICALLY SIGNED BY HARDIK COLUNGA ON 06/13/2020 AT 02:35 PM EST DISCLAIMER : THIS IS A VISIT SUMMARY EXTRACTED FROM THE [employer] CHART. IT IS NOT A COPY OF THE [employer] PROGRESS NOTE. ENE
== END ==
LOC: M PAIN 09:45
PROVIDERS: ATTEND Nurse Practitioner Family
DX: M51.17 Intervertebral disc disorders with radiculopathy, lumbosacral region (principal); G47.30 Sleep apnea, unspecified; Z86.59 Personal history of other mental and behavioral disorders; Z88.0 Allergy status to penicillin; Z79.899 Other long term (current) drug therapy

== ENCOUNTER → 2020-07-18 | Outpatient (CLI) | payer MEDICARE ==
--- NOTE | 2020-07-20 04:43 | ECWPNPC ---
PATIENT NAME: KIMBERLEY VALENCIA : 1965 GENDER: MALE VISIT DATE: 07/18/2020 DISCHARGE DATE: 07/18/20 1423 VISIT LOCKED DATE TIME: PHYSICIAN: WILLIAM FREEMAN RESOURCE: WILLIAM FREEMAN REASON FOR APPOINTMENT 1. REVIEW UTOX/MED MANAGEMENT/NECK/LBP HISTORY OF PRESENT ILLNESS GENERAL: -. FALL RISK SCREENING: SCREENING : NO FALLS REPORTED IN THE LAST YEAR. PAIN SCREENING: PATIENT HAS A COMPLAINT OF ACUTE OR CHRONIC PAIN :YES LOCATION OF PAIN:NECK, LOW BACK INTENSITY OF PAIN (SCALE OF 1 TO 10):6 WHAT DOES YOUR PAIN FEEL LIKE:ACHING, CONTINOUS, THROBBING DURATION:CONTINOUS, CONSTANT PAIN IS INCREASED BY:ACTIVITIES, PROLONGED STANDING PAIN IS DECREASED BY:USE OF PAIN MEDICATIONS NURSING NOTE: -. PAIN CENTER INTAKE QUESTIONS: DO YOU HAVE A HISTORY OF MRSA? :NO DO YOU TAKE A BLOOD THINNERS? :NO DO YOU HAVE ANY BLEEDING DISORDERS? :NO ANY NEW NUMBNESS OR WEAKNESS IN YOUR LEGS OR ARMS? :NO ANY PACEMAKER,DEFIBRILLATOR, OR DORSAL COLUMN STIMULATOR? :NO DO YOU HAVE ANY RASHES OR OPEN SORES? :YES ALL OVER UR BODY ARE YOU ALLERGIC TO IV DYE? :NO ARE YOU DIABETIC? :NO ANY NEW PROBLEMS WITH YOUR MEDICATIONS? :NO HAVE YOU RECEIVED A VACCINE IN THE PAST 30 DAYS? :YES IF SO WHAT VACCINE AND WHEN? 2ND COVID 07/18/2020 DO YOU PLAN TO RECEIVE A VACCINE IN THE NEXT 21 DAYS? :NO DO YOU NEED ANY PRESCRIPTION? :NO DO YOU TAKE ANY IMMUNOSUPPRESSIVE MEDICATIONS? :NO IS THERE A CHANCE YOU COULD BE ? :NO ARE YOU BREAST FEEDING? :NO CURRENT MEDICATIONS TAKING ARTIFICIAL TEARS 0.4 % SOLUTION 1 DROP INTO AFFECTED EYE NEEDED OPHTHALMIC ONCE A DAY TAKING NEXIUM 24HR 20 MG CAPSULE DELAYED RELEASE 1 CAPSULE ORALLY ONCE A DAY TAKING TESTOSTERONE CYPIONATE 200 MG/ML OIL 0.8 ML INTRAMUSCULAR(DR KIERRA ELMORE) EVERY 10 DAYS TAKING AMLODIPINE BESYLATE 10 MG TABLET 1 TABLET ORALLY ONCE A DAY TAKING VITAMIN D3 2000 UNIT CAPSULE 1 CAPSULE ORALLY ONCE A DAY TAKING LISINOPRIL-HYDROCHLOROTHIAZIDE 20-25 MG TABLET 1 TABLET ORALLY ONCE A DAY TAKING FERROUS SULFATE 325 (65 FE) MG TABLET 1 TABLET ORALLY ONCE A DAY TAKING CYMBALTA 30 MG CAPSULE DELAYED RELEASE PARTICLES 1 CAPSULE ORALLY BID TAKING CYCLOBENZAPRINE HCL 10 MG TABLET 1 TAB ORALLY Q8H PRN MUSCLE SPASM PAIN TAKING OXYCODONE-ACETAMINOPHEN 10-325 MG TABLET 1 TABLET NEEDED ORALLY EVERY 6 HRS MDD4 NOT-TAKING RESTASIS 0.05 % EMULSION 1 DROP INTO AFFECTED EYE OPHTHALMIC TWICE A DAY MEDICATION LIST REVIEWED AND RECONCILED WITH THE PATIENT PAST MEDICAL HISTORY HYPERTENSION BARRETS ESOPHAGUS SLEEP APNEA TX WITH CPAP (MYA MAURICIO) BACK PAIN - ([facility]) HYPOTESTOSTERONEMIA (Jermaine ELMORE) MAJOR DEPRESSION, SINGLE EPISODE (MANISH) ANXIETY OA (MULTIPLE LOCATIONS) ASCVD 10-YEAR RISK IS 5.3% IN 08/2016 OSCAR'S ESOPHAGUS: GASTRO IN [place] IBS ARTHRITIS ALLERGIES PENICILLIN (FOR ALLERGIES USE ONLY): FEET SWELLS - ALLERGY SOCIAL HISTORY GENERAL: TOBACCO USE ARE YOU A:NONSMOKER LATEX QUESTIONNAIRE LATEX ALLERGY : HAVE YOU EVER DEVELOPED ANY TYPE OF REACTION AFTER HANDLING LATEX PRODUCTS SUCH RUBBER GLOVES, CONDOMS, DIAPHRAGMS, BALLOONS, SOCKS, OR UNDERWEAR?NO LATEX ALLERGY : HAVE YOU EVER DEVELOPED ANY TYPE OF REACTION DURING OR AFTER DENTAL APPOINTMENT, VAGINAL/RECTAL EXAMINATION, SURGICAL PROCEDURE, OR ANY OTHER EXPOSURE?NO LATEX RISK : HAVE YOU EVER HAD ANY DIFFICULTY BREATHING OR HIVES AFTER EATING OR HANDLING ANY FRUITS, OR VEGETABLES; SUCH KIWI, BANANAS, STONE FRUITS, OR CHESTNUTSNO LATEX RISK : DO YOU HAVE A PREVIOUS PERSONAL HISTORY OF MORE THAN NINE SURGERIES, SPINA BIFIDA, OR REPEATED CATHERIZATIONS? NO LATEX RISK : ARE YOU FREQUENTLY EXPOSED TO LATEX PRODUCTS IN YOUR OCCUPATION?NO DATE ASKED : 07/18/2020 ALCOHOL USE: NO. BMI CARE GOAL FOLLOW-UP ABOVE NORMAL BMI FOLLOW-[facility] EDUCATION REGARDING DIET ALCOHOL SCREENING DID YOU HAVE A DRINK CONTAINING ALCOHOL IN THE PAST YEAR?NO POINTS0 INTERPRETATIONNEGATIVE RECREATIONAL DRUG USE DRUG USE?NO PATIENT DENIES ABUSE OR MISSUSED OF ANY MEDICATION. PATIENT DENIES USE OF ANY ILLEGAL SUBSTANCE INCLUDING MARIJUANA OR COCAINE. CAFFEINE CAFFEINE USE?YES 1 COFFEE DAILY SEXUAL HX HAD SEX IN THE LAST 12 MONTHS (VAGINAL, ORAL, OR ANAL)?YES WITHWOMEN ONLY USE PROTECTION?NO HAVE YOU EVER HAD AN STD?NO HIV / HEP-C SCREENING HIV TEST OFFERED TO PATIENT:YES DATE OFFERED:01/28/2017 TEST ACCEPTED:NO HEP-C TEST OFFERED TO PATIENT:NO REASON:PATIENT DECLINED ORTHODOX [id number] CATHOLIC LANGUAGE LANGUAGES SPOKEN:PERSIAN EDUCATION LEVEL OF EDUCATION:HIGH SCHOOL LEARNING BARRIERS / SPECIAL NEEDS CHANGE FROM LAST VISIT?YES BARRIERS TO LEARNING?NO HEARING IMPAIRED?YES :HEARING AIDES C/O INCREASED HEARING LOSS VISION IMPAIRED?YES :CORRECTIVE LENSES COGNITIVELY IMPAIRED?NO READINESS TO LEARN?YES LEARNING PREFERENCES?NO LEARNING CAPABILITIES PRESENT?YES EMOTIONAL BARRIERS?NO SPECIAL DEVICES?YES :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 DIET: REGULAR. EXERCISE: NO REGULAR EXERCISE. MARITAL STATUS: . OTHERS AT HOME: SPOUSE. - PFS REFERRAL NEEDED?NO CLERGY REFERRAL NEEDED?NO PUBLIC HEALTH REFERRAL NEEDED?NO WAS THE PROVIDER NOTIFIED OF ANY PERTINENT INFO?YES HAS THE PATIENT BEEN EDUCATED REGARDING HIS/HER PLAN OF CARE?YES HAS THE PATIENT BEEN EDUCATED REGARDING PAIN, THE RISK FOR PAIN, THE IMPORTANCE OF EFFECTIVE PAIN MANAGEMENT, AND THE PAIN ASSESSMENT PROCESS?YES ADVANCE DIRECTIVE ADVANCE DIRECTIVE DISCUSSED WITH PATIENT:YES HCP-LAUREL VALENCIA VITAL SIGNS WT 238.6 LBS, HT 68 IN, BMI 36.28 INDEX, BP 144/82 MM HG, HR 72 /MIN, RR 18 /MIN, TEMP 95.4 F, OXYGEN SAT % 96%, SAFE IN ENV? (Y/N) YES, NA INITIALS AW 1355T.JESSICA GONSALES. 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 IT IS NOT A COPY OF THE [employer] PROGRESS NOTE. [employer]
== END ==
LOC: M PAIN 13:45
PROVIDERS: ATTEND Nurse Practitioner Family
DX: Z79.891 Long term (current) use of opiate analgesic (principal)

== ENCOUNTER → 2020-10-17 | Outpatient (CLI) | payer MEDICARE ==
--- NOTE | 2020-10-18 07:47 | ECWPNPC ---
PATIENT NAME: KIMBERLEY VALENCIA : 1965 GENDER: MALE VISIT DATE: 10/17/2020 DISCHARGE DATE: 10/17/20954 VISIT LOCKED DATE TIME: PHYSICIAN: WILLIAM FREEMAN RESOURCE: WILLIAM FREEMAN REASON FOR APPOINTMENT 1. NECK/LOW BACK HISTORY OF PRESENT ILLNESS GENERAL: [facility] FOR FOLLOW-UP AND MEDICATION MANAGEMENT OF CHRONIC NECK AND LOW BACK PAIN. RECENTLY HAD A FLAREUP OF LOW BACK PAIN WITH RADIATION INTO HIS LEGS. STATES HE WAS IN BED FOR A COUPLE OF DAYS. HE IS IMPROVING. CONTINUES WITH PERSISTENT NECK PAIN THAT CAUSES HEADACHES. HAS RESPONDED WELL TO CERVICAL AND LUMBAR INJECTIONS IN THE PAST. PATIENT STATES HE IS HAVING ISSUES WITH FINANCES AND INSURANCE COVERAGE FOR PROCEDURES. FINDS CURRENT CHRONIC PAIN MEDICATION SOMEWHAT HELPFUL AT REDUCING PAIN AND KEEPING HIM FUNCTIONAL. DENIES ADVERSE SIDE EFFECTS OF MEDICATION. -. FALL RISK SCREENING: SCREENING COUPLES FALLS THIS YEAR , NO MAJOR INJURIES. PAIN SCREENING: PATIENT HAS A COMPLAINT OF ACUTE OR CHRONIC PAIN :YES LOCATION OF PAIN:NECK, LOW BACK INTENSITY OF PAIN (SCALE OF 1 TO 10):2 WHAT DOES YOUR PAIN FEEL LIKE:ACHING, CONTINOUS DURATION:CONTINOUS, CONSTANT, ALL DAY PAIN IS INCREASED BY:ACTIVITIES, PROLONGED STANDING PAIN IS DECREASED BY:USE OF PAIN MEDICATIONS NURSING NOTE: -. PAIN CENTER INTAKE QUESTIONS: DO YOU HAVE A HISTORY OF MRSA? :NO DO YOU TAKE A BLOOD THINNERS? :NO DO YOU HAVE ANY BLEEDING DISORDERS? :NO ANY NEW NUMBNESS OR WEAKNESS IN YOUR LEGS OR ARMS? :NO BOTH HIPS, MOSTLY DOWN THE LEFT LEG ANY PACEMAKER,DEFIBRILLATOR, OR DORSAL COLUMN STIMULATOR? :NO DO YOU HAVE ANY RASHES OR OPEN SORES? :YES ALL OVER UR BODY ARE YOU ALLERGIC TO IV DYE? :NO ARE YOU DIABETIC? :NO ANY NEW PROBLEMS WITH YOUR MEDICATIONS? :NO HAVE YOU RECEIVED A VACCINE IN THE PAST 30 DAYS? :NO DO YOU PLAN TO RECEIVE A VACCINE IN THE NEXT 21 DAYS? :NO DO YOU NEED ANY PRESCRIPTION? :NO DO YOU TAKE ANY IMMUNOSUPPRESSIVE MEDICATIONS? :NO IS THERE A CHANCE YOU COULD BE ? :NO ARE YOU BREAST FEEDING? :NO CURRENT MEDICATIONS TAKING ARTIFICIAL TEARS 0.4 % SOLUTION 1 DROP INTO AFFECTED EYE NEEDED OPHTHALMIC ONCE A DAY TAKING NEXIUM 24HR 20 MG CAPSULE DELAYED RELEASE 1 CAPSULE ORALLY ONCE A DAY TAKING TESTOSTERONE CYPIONATE 200 MG/ML OIL 0.8 ML INTRAMUSCULAR(DR KIERRA ELMORE) EVERY 10 DAYS, NOTES: 10/16/2020 TAKING AMLODIPINE BESYLATE 10 MG TABLET 1 TABLET ORALLY ONCE A DAY TAKING VITAMIN D3 2000 UNIT CAPSULE 1 CAPSULE ORALLY ONCE A DAY TAKING LISINOPRIL-HYDROCHLOROTHIAZIDE 20-25 MG TABLET 1 TABLET ORALLY ONCE A DAY TAKING FERROUS SULFATE 325 (65 FE) MG TABLET 1 TABLET ORALLY ONCE A DAY TAKING CYMBALTA 30 MG CAPSULE DELAYED RELEASE PARTICLES 1 CAPSULE ORALLY BID TAKING CYCLOBENZAPRINE HCL 10 MG TABLET 1 TAB ORALLY Q8H PRN MUSCLE SPASM PAIN TAKING OXYCODONE-ACETAMINOPHEN 10-325 MG TABLET 1 TABLET NEEDED ORALLY EVERY 6 HRS MDD4 3-MONTH SUPPLY CATEGORY D CHRONIC PAIN NOT-TAKING RESTASIS 0.05 % EMULSION 1 DROP INTO AFFECTED EYE OPHTHALMIC TWICE A DAY MEDICATION LIST REVIEWED AND RECONCILED WITH THE PATIENT PAST MEDICAL HISTORY HYPERTENSION BARRETS ESOPHAGUS SLEEP APNEA TX WITH CPAP ([facility]M [facility]) BACK PAIN - ([facility]) HYPOTESTOSTERONEMIA (Jermaine ELMORE) MAJOR DEPRESSION, SINGLE EPISODE (MANISH) ANXIETY OA (MULTIPLE LOCATIONS) ASCVD 10-YEAR RISK IS 5.3% IN 08/2016 OSCAR'S ESOPHAGUS: GASTRO IN [place] IBS ARTHRITIS MODERNA COVID 1ST: 06/10/2020 2ND: 07/18/2020 COUPLES FALLS THIS YEAR , NO MAJOR INJURIES. ALLERGIES PENICILLIN (FOR ALLERGIES USE ONLY): FEET SWELLS - ALLERGY SOCIAL HISTORY GENERAL: TOBACCO USE ARE YOU A:NONSMOKER LATEX QUESTIONNAIRE LATEX ALLERGY : HAVE YOU EVER DEVELOPED ANY TYPE OF REACTION AFTER HANDLING LATEX PRODUCTS SUCH RUBBER GLOVES, CONDOMS, DIAPHRAGMS, BALLOONS, SOCKS, OR UNDERWEAR?NO LATEX ALLERGY : HAVE YOU EVER DEVELOPED ANY TYPE OF REACTION DURING OR AFTER DENTAL APPOINTMENT, VAGINAL/RECTAL EXAMINATION, SURGICAL PROCEDURE, OR ANY OTHER EXPOSURE?NO LATEX RISK : HAVE YOU EVER HAD ANY DIFFICULTY BREATHING OR HIVES AFTER EATING OR HANDLING ANY FRUITS, OR VEGETABLES; SUCH KIWI, BANANAS, STONE FRUITS, OR CHESTNUTSNO LATEX RISK : DO YOU HAVE A PREVIOUS PERSONAL HISTORY OF MORE THAN NINE SURGERIES, SPINA BIFIDA, OR REPEATED CATHERIZATIONS? NO LATEX RISK : ARE YOU FREQUENTLY EXPOSED TO LATEX PRODUCTS IN YOUR OCCUPATION?NO DATE ASKED : 10/17/2020 ALCOHOL USE: NO. BMI CARE GOAL FOLLOW-UP ABOVE NORMAL BMI FOLLOW-[facility] EDUCATION REGARDING DIET ALCOHOL SCREENING DID YOU HAVE A DRINK CONTAINING ALCOHOL IN THE PAST YEAR?NO POINTS0 INTERPRETATIONNEGATIVE RECREATIONAL DRUG USE DRUG USE?NO PATIENT DENIES ABUSE OR MISSUSED OF ANY MEDICATION. PATIENT DENIES USE OF ANY ILLEGAL SUBSTANCE INCLUDING MARIJUANA OR COCAINE. CAFFEINE CAFFEINE USE?YES 1 COFFEE DAILY SEXUAL HX HAD SEX IN THE LAST 12 MONTHS (VAGINAL, ORAL, OR ANAL)?YES WITHWOMEN ONLY USE PROTECTION?NO HAVE YOU EVER HAD AN STD?NO HIV / HEP-C SCREENING HIV TEST OFFERED TO PATIENT:YES DATE OFFERED:01/28/2017 TEST ACCEPTED:NO HEP-C TEST OFFERED TO PATIENT:NO REASON:PATIENT DECLINED [employer] [id number] [employer]ERIAN LANGUAGE LANGUAGES SPOKEN:[place]UX[place]ISH EDUCATION LEVEL OF EDUCATION:HIGH SCHOOL LEARNING BARRIERS / SPECIAL NEEDS CHANGE FROM LAST VISIT?YES BARRIERS TO LEARNING?YES COMMENTS SHORT TERM MEMORY HEARING IMPAIRED?YES :HEARING AIDES C/O INCREASED HEARING LOSS VISION IMPAIRED?YES :CORRECTIVE LENSES COGNITIVELY IMPAIRED?NO READINESS TO LEARN?YES LEARNING PREFERENCES?YES :HANDOUTS, DEMONSTRATION/VERBAL INSTRUCTION LEARNING CAPABILITIES PRESENT?YES EMOTIONAL BARRIERS?YES COMMENTS MAJOR DEPRESSION, SINGLE EPISODE ([place]AN[place]Z SPECIAL DEVICES?YES :CANE, WALKER, OTHER NEEDED, CPAP PLASTICS AND COMPOSITES INSPECTOR NEEDED?NO DOMESTIC VIOLENCE DO YOU FEEL SAFE IN YOUR ENVIRONMENT?YES OCCUPATION: DISABLED. DIET: REGULAR. EXERCISE: NO REGULAR EXERCISE. MARITAL STATUS: . OTHERS AT HOME: SPOUSE. - PFS REFERRAL NEEDED?NO CLERGY REFERRAL NEEDED?NO PUBLIC HEALTH REFERRAL NEEDED?NO WAS THE PROVIDER NOTIFIED OF ANY PERTINENT INFO?YES HAS THE PATIENT BEEN EDUCATED REGARDING HIS/HER PLAN OF CARE?YES HAS THE PATIENT BEEN EDUCATED REGARDING PAIN, THE RISK FOR PAIN, THE IMPORTANCE OF EFFECTIVE PAIN MANAGEMENT, AND THE PAIN ASSESSMENT PROCESS?YES ADVANCE DIRECTIVE ADVANCE DIRECTIVE DISCUSSED WITH PATIENT:YES HCP-LAUREL VALENCIA REVIEW OF SYSTEMS CONSTITUTIONAL: ANY RECENT FEVER NO . CHILLS NO . WEIGHT CHANGE OF UNKNOWN REASONS NO . GASTROENTEROLOGY: NEW UNEXPLAINABLE CHANGES IN BOWEL CONTROL NO . CONSTIPATION NO . GENITOURINARY: ANY NEW CHANGE IN BLADDER CONTROL? NO . NEUROLOGY: NEW ONSET DIZZINESS OR NEUROLOGICAL CHANGES NOT MENTIONED NO . NEW NUMBNESS OR PAIN PATTERNS NOT MENTIONED AND PERTINENT TO TODAY'S VISIT NO . CARDIOLOGY: NEW CHEST PRESSURE NO . PATIENT DENIES NO . RESPIRATORY: UNEXPLAINABLE COUGH NO . NEW SHORTNESS OF BREATH NO . VITAL SIGNS WT 248.6 LBS, HT 68 IN, BMI 37.80 INDEX, BP 174/98 MM HG, HR 70 /MIN, RR 18 /MIN, TEMP 97.7 F, OXYGEN SAT % 96%, SAFE IN ENV? (Y/N) YES, NA INITIALS SC 09:25T.JESSICA GONSALES. EXAMINATION GENERAL EXAMINATION: GENERALAWAKE,ALERT ,PLEASANT . PSYCHAFFECT NORMAL . LUNGS:LUNG KLINE ARE CLEAR TO AUSCULTATION BILATERALLY. GOOD MOVEMENT OF AIR . HEART:S1, S2 IN A REGULAR RATE AND RHYTHM. NO SIGNIFICANT MURMURS, RUBS OR GALLOPS NOTED . ASSESSMENTS INTERVERTEBRAL DISC DISORDERS WITH RADICULOPATHY, LUMBOSACRAL REGION - M51.17 (PRIMARY) CERVICAL SPONDYLOSIS WITH RADICULOPATHY - M47.22 TREATMENT INTERVERTEBRAL DISC DISORDERS WITH RADICULOPATHY, LUMBOSACRAL REGION NOTES: CONTINUE CURRENT CHRONIC PAIN MEDICATIONS. FOLLOW-UP AT PAIN CLINIC IN 2 MONTHS. CONSIDER CERVICAL EPIDURAL STEROID INJECTION FOR COMPLAINTS OF SIGNIFICANT INCREASE IN NECK PAIN THAT LEADS TO HEADACHES. WE ALSO FOLLOW HIM FOR LOW BACK PAIN AND HE HAS BENEFITED FROM PROCEDURES IN THE PAST. PROCEDURE CODES FA211 ESTABILISHED PATIENT [facility] CHARGE DISPOSITION & COMMUNICATION FOLLOW UP 2 MONTHS (REASON: NECK PAIN/LOW BACK PAIN/MEDICATION MANAGEMENT) ELECTRONICALLY SIGNED BY HARDIK COLUNGA ON 10/17/2020 AT 12:39 PM EDT DISCLAIMER : THIS IS A VISIT SUMMARY EXTRACTED FROM THE [employer] CHART. IT IS NOT A COPY OF THE [employer] PROGRESS NOTE. ENE
== END ==
LOC: M PAIN 09:00
PROVIDERS: ATTEND Nurse Practitioner Family
DX: M51.17 Intervertebral disc disorders with radiculopathy, lumbosacral region (principal); M47.22 Other spondylosis with radiculopathy, cervical region; G89.29 Other chronic pain; G47.30 Sleep apnea, unspecified; Z86.59 Personal history of other mental and behavioral disorders; Z88.0 Allergy status to penicillin; Z79.899 Other long term (current) drug therapy

== ENCOUNTER → 2021-01-09 | Outpatient (CLI) | payer MEDICARE | LOC: M PAIN 11:15 | PROVIDERS: ATTEND Anesthesiology | DX: M96.1 Postlaminectomy syndrome, not elsewhere classified (principal); K22.70 Barrett's esophagus without dysplasia; I10 Essential (primary) hypertension; G47.30 Sleep apnea, unspecified; F32.9 Major depressive disorder, single episode, unspecified; F41.9 Anxiety disorder, unspecified; M15.9 Polyosteoarthritis, unspecified; K58.9 Irritable bowel syndrome, unspecified; Z79.891 Long term (current) use of opiate analgesic; Z79.899 Other long term (current) drug therapy; Z88.0 Allergy status to penicillin ==

== ENCOUNTER → 2021-02-06 | Outpatient (CLI) | payer MEDICARE ==
[~2021-02-06] MED LIST changes: +PROHANCE 279.3MG/ML 15ML VIAL As Ordered ONE; +PROHANCE 279.3MG/ML 5ML VIAL As Ordered ONE
[2021-02-06 17:18] LABS: BLOOD UREA NITROGEN 24 MG/DL (7-18); CREATININE FOR GFR 1.05 MG/DL (0.70-1.30); GLOMERULAR FILTRATION RATE > 60.0 (>56)
--- NOTE | 2021-02-06 23:11 | REPVR ---
PROCEDURE INFORMATION: Exam: MR Lumbar Spine Without and With Contrast Exam date and time: 02/06/2021 5:31 PM Age: 55 years old Clinical indication: Low back pain; Prior surgery; Surgery date: 6+ months; Additional info: Post laminectomy syndrome TECHNIQUE: Imaging protocol: Multiplanar magnetic resonance images of the lumbar spine without and with intravenous contrast. Contrast material: PROHANCE; Contrast volume: 18 ml; Contrast route: INTRAVENOUS (IV); COMPARISON: MRI-Spine, L.S. without con 08/21/2018 1:25 PM FINDINGS: Chronic postoperative changes compatible with posterior decompression from L4 through S1. Lumbar vertebral body heights are maintained. Modic type 1 edematous degenerative endplate change at L5-S1. Anatomic partial lumbarization of the S1 vertebral level. 0.4 cm grade 1 anterolisthesis of L5 on S1. Prominent T2 hyperintense fluid within the bilateral L4-L5 and L5-S1 facet joint spaces. No cord compression. No abnormal cord signal. Conus medullaris terminates at the L1 level. Paravertebral soft tissues are unremarkable. L1-L2: No significant canal or foraminal narrowing. L2-L3: No significant canal or foraminal narrowing. L3-L4: Broad-based disc bulge causes mild bilateral foraminal narrowing. No significant canal narrowing. L4-L5: Status post posterior decompression. Broad-based disc bulge and facet hypertrophy cause mild to moderate canal narrowing with effacement of the bilateral lateral recesses. Moderate bilateral foraminal narrowing. L5-S1: Status post posterior decompression. Broad-based disc bulge and facet hypertrophy cause moderate canal narrowing with effacement of the bilateral lateral recesses and likely impingement upon the traversing bilateral S1 nerve roots. Moderate to severe bilateral foraminal narrowing. IMPRESSION: Multilevel postoperative and advanced spondylotic changes of the lumbar spine from L4 through S1, as detailed above. Electronically signed by: Alex Saavedra On 02/06/2021 23:10:48 PM
== END ==
LOC: M RAD 15:33 → M LAB 15:33
PROVIDERS: ATTEND Anesthesiology
DX: M96.1 Postlaminectomy syndrome, not elsewhere classified (principal)
CPT/HCPCS: 36415; 72158; 82565; 84520; A9576

== ENCOUNTER → 2021-02-20 | Outpatient (CLI) | payer MEDICARE ==
[~2021-02-20] MED LIST changes: -PROHANCE 279.3MG/ML 15ML VIAL As Ordered ONE; -PROHANCE 279.3MG/ML 5ML VIAL As Ordered ONE
[2021-02-20 12:58] LABS: BASO % 0.5 % (0.0-1.0); EOS # 0.1 10^3/uL (0.0-0.5); EOS % 1.8 % (0.0-3.0); HEMATOCRIT 45.9 % (42.0-52.0); HEMOGLOBIN 15.1 g/dl (13.5-17.5); LYMPH # 1.2 10^3/uL (1.5-5.0); LYMPH % 18.4 % (24.0-44.0); MEAN CORPUSCULAR HEMOGLOBIN 30.9 pg (27.0-33.0); MEAN CORPUSCULAR HGB CONC 32.9 g/dl (32.0-36.5); MEAN CORPUSCULAR VOLUME 93.9 fl (80.0-96.0); MONO # 0.6 10^3/uL (0.0-0.8); MONO % 9.5 % (2.0-8.0); NEUTROPHILS # 4.5 10^3/uL (1.5-8.5); NEUTROPHILS % 69.2 % (36.0-66.0); PLATELET COUNT, AUTOMATED 247 10^3/uL (150-450); RED BLOOD COUNT 4.89 10^6/uL (4.30-6.10); WHITE BLOOD COUNT 6.6 10^3/uL (4.0-10.0)
[2021-02-20 13:25] LABS: ALT/SGPT 59 U/L (12-78); BILIRUBIN,TOTAL 0.3 MG/DL (0.2-1.0); BLOOD UREA NITROGEN 21 MG/DL (7-18); CARBON DIOXIDE LEVEL 32 MEQ/L (21-32); CHLORIDE LEVEL 100 MEQ/L (98-107); CHOLESTEROL LEVEL 241 MG/DL (<200); CHOLESTEROL RISK RATIO 10.954 (<5); CREATININE FOR GFR 0.97 MG/DL (0.70-1.30); GLOMERULAR FILTRATION RATE > 60.0 (>56); GLUCOSE, FASTING 122 MG/DL (70-100); HDL CHOLESTEROL 22 MG/DL (>40); NON-HDL-C 219 MG/DL; POTASSIUM SERUM 4.5 MEQ/L (3.5-5.1); SODIUM LEVEL 136 MEQ/L (136-145); TOTAL PROTEIN 6.8 GM/DL (6.4-8.2); TRIGLYCERIDES LEVEL 871 MG/DL (<150)
== END ==
LOC: M WUC 10:32
PROVIDERS: ATTEND Family Medicine
DX: I10 Essential (primary) hypertension (principal)

== ENCOUNTER → 2021-03-10 | Outpatient (CLI) | payer MEDICARE | LOC: M PAIN 09:30 | PROVIDERS: ATTEND Anesthesiology | DX: M96.1 Postlaminectomy syndrome, not elsewhere classified (principal); I10 Essential (primary) hypertension; K22.70 Barrett's esophagus without dysplasia; G47.30 Sleep apnea, unspecified; F32.9 Major depressive disorder, single episode, unspecified; F41.9 Anxiety disorder, unspecified; M15.0 Primary generalized (osteo)arthritis; K58.9 Irritable bowel syndrome, unspecified; E29.1 Testicular hypofunction; Z79.891 Long term (current) use of opiate analgesic; Z79.899 Other long term (current) drug therapy; Z88.0 Allergy status to penicillin ==

== ENCOUNTER → 2021-05-02 | Outpatient (CLI) | payer MEDICARE ==
[~2021-05-02] MED LIST changes: -LISI20TA20 PO; +LISI20TA37 PO
== END ==
LOC: M PAIN 11:45
PROVIDERS: ATTEND Anesthesiology
DX: M96.1 Postlaminectomy syndrome, not elsewhere classified (principal); M51.16 Intervertebral disc disorders with radiculopathy, lumbar region; I10 Essential (primary) hypertension; K22.70 Barrett's esophagus without dysplasia; G47.30 Sleep apnea, unspecified; F32.9 Major depressive disorder, single episode, unspecified; F41.9 Anxiety disorder, unspecified; M15.0 Primary generalized (osteo)arthritis; K58.9 Irritable bowel syndrome, unspecified; E29.1 Testicular hypofunction; Z79.899 Other long term (current) drug therapy; Z88.0 Allergy status to penicillin; Z88.8 Allergy status to other drugs, medicaments and biological substances; Z79.891 Long term (current) use of opiate analgesic

== ENCOUNTER → 2021-05-22 | Outpatient (CLI) | payer MEDICARE ==
[2021-05-22 08:44] LABS: ALBUMIN 4.1 GM/DL (3.2-5.2); BILIRUBIN,DIRECT 0.1 MG/DL (0.0-0.2); BILIRUBIN,TOTAL 0.7 MG/DL (0.2-1.0); CHOLESTEROL RISK RATIO 5.131 (<5); TOTAL PROTEIN 7.1 GM/DL (6.4-8.2)
== END ==
LOC: M LAB 06:33
PROVIDERS: ATTEND Family Medicine
DX: E78.2 Mixed hyperlipidemia (principal)

== ENCOUNTER → 2021-05-22 | Outpatient (CLI) | payer MEDICARE | LOC: M LAB 06:39 | PROVIDERS: ATTEND Internal Medicine Endocrinology, Diabetes & Metabolism | DX: E29.1 Testicular hypofunction (principal) ==

== ENCOUNTER → 2021-07-10 | Outpatient (CLI) | payer MEDICARE ==
[2021-07-10 07:49] LABS: ALBUMIN 3.9 GM/DL (3.2-5.2); ALT/SGPT 62 U/L (12-78); BILIRUBIN,TOTAL 0.4 MG/DL (0.2-1.0); BLOOD UREA NITROGEN 21 MG/DL (7-18); CALCIUM LEVEL 9.1 MG/DL (8.5-10.1); CARBON DIOXIDE LEVEL 31 MEQ/L (21-32); CHLORIDE LEVEL 102 MEQ/L (98-107); CHOLESTEROL LEVEL 188 MG/DL (<200); CHOLESTEROL RISK RATIO 6.266 (<5); CREATININE FOR GFR 0.89 MG/DL (0.70-1.30); GLOMERULAR FILTRATION RATE > 60.0 (>56); GLUCOSE, FASTING 106 MG/DL (70-100); HDL CHOLESTEROL 30 MG/DL (>40); NON-HDL-C 158 MG/DL; POTASSIUM SERUM 4.2 MEQ/L (3.5-5.1); SODIUM LEVEL 137 MEQ/L (136-145); TOTAL PROTEIN 6.4 GM/DL (6.4-8.2); TRIGLYCERIDES LEVEL 562 MG/DL (<150)
== END ==
LOC: M LAB 06:21
PROVIDERS: ATTEND Family Medicine
DX: E78.5 Hyperlipidemia, unspecified (principal)

== ENCOUNTER → 2021-08-13 | Outpatient (CLI) | payer MEDICARE ==
[~2021-08-13] MED LIST changes: +CYMB60CA4 PO; +D32000TA2 PO; +LATA0.0015 OU; +PRAV20TA2 PO
== END ==
LOC: M PAIN 10:30
PROVIDERS: ATTEND Nurse Practitioner Family
DX: M50.13 Cervical disc disorder with radiculopathy, cervicothoracic region (principal); G89.29 Other chronic pain; G47.30 Sleep apnea, unspecified; F32.9 Major depressive disorder, single episode, unspecified; F41.9 Anxiety disorder, unspecified; Z88.0 Allergy status to penicillin; Z88.8 Allergy status to other drugs, medicaments and biological substances; E66.01 Morbid (severe) obesity due to excess calories; Z68.41 Body mass index [BMI] 40.0-44.9, adult; Z79.899 Other long term (current) drug therapy

== ENCOUNTER 2021-08-17 21:46 | Inpatient (IN) | payer MEDICARE ==
[~2021-08-17] VITALS: Ht 175.3 cm; Wt 103.2 kg
[~2021-08-17 21:46] MED LIST changes: -CYMB60CA4 PO; -D32000TA2 PO; -LATA0.0015 OU; -PRAV20TA2 PO
[2021-08-17 22:29] LABS: HEMATOCRIT 42.1 % (42.0-52.0); MEAN CORPUSCULAR HEMOGLOBIN 31.2 pg (27.0-33.0); MEAN CORPUSCULAR HGB CONC 33.3 g/dl (32.0-36.5); MEAN CORPUSCULAR VOLUME 93.8 fl (80.0-96.0); PLATELET COUNT, AUTOMATED 276 10^3/uL (150-450); RED BLOOD COUNT 4.49 10^6/uL (4.30-6.10); WHITE BLOOD COUNT 10.4 10^3/uL (4.0-10.0)
[2021-08-17] MEDS ORDERED: LATA0.0015 OU (22:33)
[2021-08-17] MEDS ORDERED: PERCOCET 5MG/325MG TAB PO ONE (22:45)
[2021-08-17 22:50] LABS: AMPHETAMINES LEVEL URINE NEGATIVE (NEGATIVE); BARBITURATES URINE NEGATIVE (NEGATIVE); BENZODIAZEPINES URINE NEGATIVE (NEGATIVE); CANNABINOIDS URINE NEGATIVE (NEGATIVE); COCAINE METABOLITE URINE NEGATIVE (NEGATIVE); METHADONE URINE NEGATIVE (NEGATIVE); OPIATES URINE POSITIVE (NEGATIVE); PHENCYCLIDINE URINE NEGATIVE (NEGATIVE)
[2021-08-17 22:59] LABS: ACETAMINOPHEN LEVEL 5.5 UG/ML (10.0-30.0); ALT/SGPT 74 U/L (12-78); BILIRUBIN,DIRECT 0.2 MG/DL (0.0-0.2); BILIRUBIN,TOTAL 0.2 MG/DL (0.2-1.0); BLOOD UREA NITROGEN 23 MG/DL (7-18); CARBON DIOXIDE LEVEL 23 MEQ/L (21-32); CHLORIDE LEVEL 105 MEQ/L (98-107); CREATININE FOR GFR 0.93 MG/DL (0.70-1.30); ETHYL ALCOHOL (ETHANOL) 0.053 % (0.000-0.010); GLOMERULAR FILTRATION RATE > 60.0 (>56); GLUCOSE, FASTING 104 MG/DL (70-100); POTASSIUM SERUM 4.2 MEQ/L (3.5-5.1); SALICYLATE LEVEL < 1.7 MG/DL (5.0-30.0); SODIUM LEVEL 140 MEQ/L (136-145); TOTAL PROTEIN 7.6 GM/DL (6.4-8.2)
[2021-08-17 23:00] LABS: RSV AMPLIFICATION NEGATIVE (NEGATIVE)
[2021-08-18] MEDS ORDERED: DERMABOND TOPICAL SKIN ADHESIVE TOP ONE
[2021-08-18] MEDS ORDERED: PERCOCET 5MG/325MG TAB PO PRN (07:45)
[2021-08-18] MEDS ORDERED: CYMB60CA4 PO (08:24)
[2021-08-18] MEDS ORDERED: PRAV20TA2 PO (08:24)
[2021-08-18] MEDS ORDERED: D32000TA2 PO (08:24)
[2021-08-18] MEDS ORDERED: HOME MED LIST COMPLETE! XX SCH (08:25)
[2021-08-18 09:13] LABS: BILIRUBIN,DIRECT 0.2 MG/DL (0.0-0.2); BILIRUBIN,TOTAL 0.4 MG/DL (0.2-1.0); TOTAL PROTEIN 7.1 GM/DL (6.4-8.2)
[2021-08-18] MEDS: FERROUS SULFATE 325MG TAB PO SCH (11:02)
[2021-08-18] MEDS: DULoxetine 30MG CAPSULE (CYMBALTA) PO SCH (11:03)
[2021-08-18] MEDS: oxyCODONE 5MG TAB PO PRN (14:00)
[2021-08-18] MEDS ORDERED: IBUPROFEN 600MG TAB PO ONE (20:55)
[2021-08-18] MEDS ORDERED: oxyCODONE 5MG TAB PO ONE (20:55)
[2021-08-18] MEDS: PRAVASTATIN 20 MG TAB PO SCH (21:02)
[2021-08-19] MEDS ORDERED: PERCOCET 5MG/325MG TAB PO ONE (06:55)
[2021-08-19] MEDS ORDERED: BOOSTRIX/ADACEL VACCINE (DIPHTH/PERTUSS/ACELL/TETANUS) 0.5ML SYR IM ONE (08:25)
[2021-08-19] MEDS: DULoxetine 30MG CAPSULE (CYMBALTA) PO SCH (08:34)
[2021-08-19] MEDS: FERROUS SULFATE 325MG TAB PO SCH (08:34)
[2021-08-19] MEDS: oxyCODONE 5MG TAB PO PRN ×2 (15:27→21:30)
[2021-08-19] MEDS: PRAVASTATIN 20 MG TAB PO SCH (21:30)
[2021-08-20] MEDS: FERROUS SULFATE 325MG TAB PO SCH (08:50)
[2021-08-20] MEDS: DULoxetine 30MG CAPSULE (CYMBALTA) PO SCH (08:50)
[2021-08-20] MEDS: oxyCODONE 5MG TAB PO PRN ×3 (08:51→23:37)
[2021-08-20] MEDS: NICOTINE 21MG/24HR 1 EA TRANSDERMAL TD SCH (09:00)
[2021-08-20] MEDS ORDERED: MOM 30ML SUSPENSION UDC PO PRN (11:20)
[2021-08-20] MEDS ORDERED: LORazepam 2 MG TAB PO PRN (11:20)
[2021-08-20] MEDS ORDERED: MAALOX 30 ML SUSP *UDC PO PRN (11:20)
[2021-08-20] MEDS: THIAMINE 100 MG TAB PO SCH ×2 (12:06→20:17)
[2021-08-20] MEDS: OMEPRAZOLE 20MG CAP PO SCH (12:07)
[2021-08-20] MEDS: FOLIC ACID 1 MG TAB PO SCH (12:07)
[2021-08-20 16:45] VITALS: BP 164/98
[2021-08-20] MEDS: PRAVASTATIN 20 MG TAB PO SCH (20:17)
[2021-08-20] MEDS: LATANOPROST 0.005% OPHTH SOLN 2.5 ML OU SCH (20:18)
[2021-08-20] MEDS: traZODone 50 MG TAB PO PRN (20:18)
[2021-08-20] MEDS: IBUPROFEN 400MG TAB PO PRN (20:18)
[2021-08-21 06:00] VITALS: BP 138/84
[2021-08-21] MEDS: oxyCODONE 5MG TAB PO PRN ×4 (07:15→21:24)
[2021-08-21] MEDS ORDERED: MULTIVITAMINS/MINERALS THERAP 1 TAB PO SCH (09:00)
[2021-08-21] MEDS: NICOTINE 21MG/24HR 1 EA TRANSDERMAL TD SCH (09:00)
[2021-08-21 09:34] VITALS: BP 162/98
[2021-08-21] MEDS: FERROUS SULFATE 325MG TAB PO SCH (09:52)
[2021-08-21] MEDS: OMEPRAZOLE 20MG CAP PO SCH (09:53)
[2021-08-21] MEDS: FOLIC ACID 1 MG TAB PO SCH (09:53)
[2021-08-21] MEDS: THIAMINE 100 MG TAB PO SCH ×2 (09:53→21:23)
[2021-08-21] MEDS: DULoxetine 30MG CAPSULE (CYMBALTA) PO SCH (09:53)
[2021-08-21] MEDS: LIDOCAINE 5% (LIDODERM) PATCH TD SCH (10:17)
[2021-08-21] MEDS: GABAPENTIN 100 MG CAP PO SCH ×3 (10:53→21:24)
[2021-08-21] MEDS: **hydrALAZINE HCL** 25 MG TAB PO SCH ×2 (12:00→17:15)
[2021-08-21] MEDS: IBUPROFEN 400MG TAB PO PRN (17:15)
[2021-08-21 18:18] VITALS: BP 133/72
[2021-08-21] MEDS: LATANOPROST 0.005% OPHTH SOLN 2.5 ML OU SCH (21:22)
[2021-08-21] MEDS: traZODone 50 MG TAB PO PRN (21:23)
[2021-08-21] MEDS: PRAVASTATIN 20 MG TAB PO SCH (21:24)
[2021-08-21] MEDS: **NOTE PATIENT COMMENT** MISC XX SCH (21:26)
[2021-08-22] MEDS: oxyCODONE 5MG TAB PO PRN ×3 (05:23→18:21)
[2021-08-22] MEDS: **hydrALAZINE HCL** 25 MG TAB PO SCH ×4 (06:00→16:57)
[2021-08-22 06:55] VITALS: BP 157/97
[2021-08-22] MEDS: LIDOCAINE 5% (LIDODERM) PATCH TD SCH (08:37)
[2021-08-22] MEDS: OMEPRAZOLE 20MG CAP PO SCH (08:37)
[2021-08-22] MEDS: FOLIC ACID 1 MG TAB PO SCH (08:37)
[2021-08-22] MEDS: THIAMINE 100 MG TAB PO SCH ×2 (08:38→20:19)
[2021-08-22] MEDS: DULoxetine 30MG CAPSULE (CYMBALTA) PO SCH (08:38)
[2021-08-22] MEDS: FERROUS SULFATE 325MG TAB PO SCH (08:38)
[2021-08-22] MEDS: GABAPENTIN 100 MG CAP PO SCH ×3 (08:39→20:18)
[2021-08-22] MEDS: NICOTINE 21MG/24HR 1 EA TRANSDERMAL TD SCH (08:45)
[2021-08-22] MEDS: IBUPROFEN 400MG TAB PO PRN ×2 (16:08→22:36)
[2021-08-22 18:00] VITALS: BP 141/85
[2021-08-22] MEDS: traZODone 50 MG TAB PO PRN (20:18)
[2021-08-22] MEDS: PRAVASTATIN 20 MG TAB PO SCH (20:19)
[2021-08-22] MEDS: **NOTE PATIENT COMMENT** MISC XX SCH (20:21)
[2021-08-22] MEDS: LATANOPROST 0.005% OPHTH SOLN 2.5 ML OU SCH (20:21)
[2021-08-22] MEDS: diphenhydrAMINE 25MG CAP PO PRN (21:21)
[2021-08-23] MEDS: oxyCODONE 5MG TAB PO PRN ×4 (00:36→19:24)
[2021-08-23 06:00] VITALS: BP 156/69
[2021-08-23] MEDS: **hydrALAZINE HCL** 25 MG TAB PO SCH ×5 (06:00→23:40)
[2021-08-23] MEDS: FERROUS SULFATE 325MG TAB PO SCH (08:27)
[2021-08-23] MEDS: GABAPENTIN 100 MG CAP PO SCH ×3 (08:27→21:11)
[2021-08-23] MEDS: OMEPRAZOLE 20MG CAP PO SCH (08:27)
[2021-08-23] MEDS: FOLIC ACID 1 MG TAB PO SCH (08:27)
[2021-08-23] MEDS: DULoxetine 30MG CAPSULE (CYMBALTA) PO SCH (08:28)
[2021-08-23] MEDS: LIDOCAINE 5% (LIDODERM) PATCH TD SCH (08:29)
[2021-08-23] MEDS: NICOTINE 21MG/24HR 1 EA TRANSDERMAL TD SCH (08:30)
[2021-08-23] MEDS ORDERED: ENTER DRUG NAME HERE (PATIENT'S OWN MED) IM SCH (11:05)
[2021-08-23] MEDS ORDERED: TEST200I14 IM (11:07)
[2021-08-23] MEDS: IBUPROFEN 400MG TAB PO PRN ×2 (14:53→22:44)
[2021-08-23 18:00] VITALS: BP 128/74
[2021-08-23] MEDS: traZODone 25MG PER 1/2 TABLET PO PRN (21:11)
[2021-08-23] MEDS: LATANOPROST 0.005% OPHTH SOLN 2.5 ML OU SCH (21:12)
[2021-08-23] MEDS: PRAVASTATIN 20 MG TAB PO SCH (21:12)
[2021-08-23] MEDS: **NOTE PATIENT COMMENT** MISC XX SCH (21:13)
[2021-08-24] MEDS: oxyCODONE 5MG TAB PO PRN ×4 (01:32→20:46)
[2021-08-24] MEDS: diphenhydrAMINE 25MG CAP PO PRN (01:32)
[2021-08-24] MEDS: IBUPROFEN 400MG TAB PO PRN ×3 (05:16→21:57)
[2021-08-24] MEDS: **hydrALAZINE HCL** 25 MG TAB PO SCH ×4 (06:00→23:20)
[2021-08-24 06:49] VITALS: BP 153/90
[2021-08-24] MEDS: FOLIC ACID 1 MG TAB PO SCH (08:16)
[2021-08-24] MEDS: OMEPRAZOLE 20MG CAP PO SCH (08:16)
[2021-08-24] MEDS: GABAPENTIN 100 MG CAP PO SCH ×3 (08:16→20:44)
[2021-08-24] MEDS: DULoxetine 30MG CAPSULE (CYMBALTA) PO SCH (08:16)
[2021-08-24] MEDS: FERROUS SULFATE 325MG TAB PO SCH (08:17)
[2021-08-24] MEDS: LIDOCAINE 5% (LIDODERM) PATCH TD SCH (08:18)
[2021-08-24] MEDS: NICOTINE 21MG/24HR 1 EA TRANSDERMAL TD SCH (09:00)
[2021-08-24 18:00] VITALS: BP 156/82
[2021-08-24] MEDS: LATANOPROST 0.005% OPHTH SOLN 2.5 ML OU SCH (20:44)
[2021-08-24] MEDS: PRAVASTATIN 20 MG TAB PO SCH (20:45)
[2021-08-24] MEDS: **NOTE PATIENT COMMENT** MISC XX SCH (21:56)
[2021-08-24] MEDS: traZODone 25MG PER 1/2 TABLET PO PRN (23:21)
[2021-08-25] MEDS: oxyCODONE 5MG TAB PO PRN ×4 (02:56→21:23)
[2021-08-25] MEDS: diphenhydrAMINE 25MG CAP PO PRN (02:57)
[2021-08-25 06:00] VITALS: BP 147/89
[2021-08-25] MEDS: **hydrALAZINE HCL** 25 MG TAB PO SCH (06:00)
[2021-08-25] MEDS: IBUPROFEN 400MG TAB PO PRN ×3 (06:25→19:33)
[2021-08-25] MEDS: NICOTINE 21MG/24HR 1 EA TRANSDERMAL TD SCH (09:00)
[2021-08-25] MEDS: GABAPENTIN 100 MG CAP PO SCH ×2 (09:02→15:04)
[2021-08-25] MEDS: FOLIC ACID 1 MG TAB PO SCH (09:02)
[2021-08-25] MEDS: DULoxetine 30MG CAPSULE (CYMBALTA) PO SCH (09:02)
[2021-08-25] MEDS: OMEPRAZOLE 20MG CAP PO SCH (09:03)
[2021-08-25] MEDS: FERROUS SULFATE 325MG TAB PO SCH (09:03)
[2021-08-25] MEDS: LIDOCAINE 5% (LIDODERM) PATCH TD SCH (09:05)
[2021-08-25 18:00] VITALS: BP 132/68
[2021-08-25] MEDS: **NOTE PATIENT COMMENT** MISC XX SCH (21:11)
[2021-08-25] MEDS: GABAPENTIN 300 MG CAP PO SCH (21:16)
[2021-08-25] MEDS: ARIPiprazole 2 MG TAB PO SCH (21:16)
[2021-08-25] MEDS: LATANOPROST 0.005% OPHTH SOLN 2.5 ML OU SCH (21:16)
[2021-08-25] MEDS: PRAVASTATIN 20 MG TAB PO SCH (21:16)
[2021-08-25] MEDS: traZODone 25MG PER 1/2 TABLET PO PRN (21:18)
[2021-08-26] MEDS: diphenhydrAMINE 25MG CAP PO PRN (01:29)
[2021-08-26] MEDS: oxyCODONE 5MG TAB PO PRN ×4 (03:39→22:02)
[2021-08-26 06:20] VITALS: BP 113/72
[2021-08-26] MEDS: IBUPROFEN 400MG TAB PO PRN ×2 (06:55→13:15)
[2021-08-26 07:18] LABS: CHOLESTEROL RISK RATIO 4.324 (<5)
[2021-08-26] MEDS: NICOTINE 21MG/24HR 1 EA TRANSDERMAL TD SCH (09:00)
[2021-08-26] MEDS: FERROUS SULFATE 325MG TAB PO SCH (09:48)
[2021-08-26] MEDS: OMEPRAZOLE 20MG CAP PO SCH (09:48)
[2021-08-26] MEDS: GABAPENTIN 300 MG CAP PO SCH ×3 (09:50→20:27)
[2021-08-26] MEDS: FOLIC ACID 1 MG TAB PO SCH (09:50)
[2021-08-26] MEDS: DULoxetine 30MG CAPSULE (CYMBALTA) PO SCH (09:50)
[2021-08-26] MEDS: LIDOCAINE 5% (LIDODERM) PATCH TD SCH (09:51)
[2021-08-26] MEDS ORDERED: LACRILUBE (AKWA TEARS) OPHTH OINT 3.5 GM OU PRN (15:25)
[2021-08-26 18:00] VITALS: BP 138/82
[2021-08-26] MEDS: ARIPiprazole 2 MG TAB PO SCH (20:26)
[2021-08-26] MEDS: LATANOPROST 0.005% OPHTH SOLN 2.5 ML OU SCH (20:27)
[2021-08-26] MEDS: PRAVASTATIN 20 MG TAB PO SCH (20:27)
[2021-08-26] MEDS: MIRTAZAPINE 7.5MG PER 1/2 TABLET PO SCH (20:27)
[2021-08-26] MEDS: **NOTE PATIENT COMMENT** MISC XX SCH (20:27)
[2021-08-26] MEDS: traZODone 50 MG TAB PO PRN (22:02)
[2021-08-27] MEDS: IBUPROFEN 400MG TAB PO PRN ×3 (00:17→16:48)
[2021-08-27] MEDS: diphenhydrAMINE 25MG CAP PO PRN (00:17)
[2021-08-27] MEDS: oxyCODONE 5MG TAB PO PRN ×3 (04:28→20:11)
[2021-08-27 06:32] VITALS: BP 155/63
[2021-08-27] MEDS: GABAPENTIN 300 MG CAP PO SCH ×3 (08:43→20:11)
[2021-08-27] MEDS: OMEPRAZOLE 20MG CAP PO SCH (08:43)
[2021-08-27] MEDS: FERROUS SULFATE 325MG TAB PO SCH (08:43)
[2021-08-27] MEDS: FOLIC ACID 1 MG TAB PO SCH (08:43)
[2021-08-27] MEDS: DULoxetine 30MG CAPSULE (CYMBALTA) PO SCH (08:43)
[2021-08-27] MEDS: NICOTINE 21MG/24HR 1 EA TRANSDERMAL TD SCH (08:44)
[2021-08-27] MEDS: LIDOCAINE 5% (LIDODERM) PATCH TD SCH (08:44)
[2021-08-27 17:34] VITALS: BP 141/83
[2021-08-27] MEDS: MIRTAZAPINE 7.5MG PER 1/2 TABLET PO SCH (20:11)
[2021-08-27] MEDS: traZODone 50 MG TAB PO PRN (20:11)
[2021-08-27] MEDS: PRAVASTATIN 20 MG TAB PO SCH (20:11)
[2021-08-27] MEDS: ARIPiprazole 2 MG TAB PO SCH (20:11)
[2021-08-27] MEDS: OMEGA-3 1000MG CAPSULE PO SCH (20:11)
[2021-08-27] MEDS: LATANOPROST 0.005% OPHTH SOLN 2.5 ML OU SCH (20:12)
[2021-08-27] MEDS: **NOTE PATIENT COMMENT** MISC XX SCH (21:00)
[2021-08-28] MEDS: IBUPROFEN 400MG TAB PO PRN ×2 (00:56→10:11)
[2021-08-28] MEDS: diphenhydrAMINE 25MG CAP PO PRN (00:56)
[2021-08-28] MEDS: oxyCODONE 5MG TAB PO PRN (05:05)
[2021-08-28 07:06] VITALS: BP 144/67
[2021-08-28] MEDS: DULoxetine 30MG CAPSULE (CYMBALTA) PO SCH (08:08)
[2021-08-28] MEDS: GABAPENTIN 300 MG CAP PO SCH (08:08)
[2021-08-28 08:09] VITALS: BP 137/80
[2021-08-28] MEDS: OMEGA-3 1000MG CAPSULE PO SCH (08:09)
[2021-08-28] MEDS: FOLIC ACID 1 MG TAB PO SCH (08:09)
[2021-08-28] MEDS: OMEPRAZOLE 20MG CAP PO SCH (08:09)
[2021-08-28] MEDS: FERROUS SULFATE 325MG TAB PO SCH (08:09)
[2021-08-28] MEDS: LIDOCAINE 5% (LIDODERM) PATCH TD SCH (08:10)
[2021-08-28] MEDS: NICOTINE 21MG/24HR 1 EA TRANSDERMAL TD SCH (08:10)
[2021-08-28] MEDS ORDERED: ABIL1TAB13 PO (09:21)
[2021-08-28] MEDS ORDERED: CYMB60CA4 PO (09:21)
[2021-08-28] MEDS ORDERED: ESOM1CAP5 PO (09:21)
[2021-08-28] MEDS ORDERED: TRAZ-252 PO (09:21)
[2021-08-28] MEDS ORDERED: PRAV20TA2 PO (09:21)
[2021-08-28] MEDS ORDERED: D32000TA2 PO (09:21)
[2021-08-28] MEDS ORDERED: FERR325T3 PO (09:21)
[2021-08-28] MEDS ORDERED: GABA-282 PO (09:21)
[2021-08-28] MEDS ORDERED: MIRT-10 PO (09:21)
[2021-08-28] MEDS ORDERED: FISH1CAP26 PO (09:21)
[2021-08-28] MEDS ORDERED: DIPH25CA32 PO (09:21)
[2021-08-28] MEDS ORDERED: LATA0.0015 OU (09:21)
[2021-08-28] MEDS ORDERED: OXYC7.5T3 PO (09:21)
[2021-08-28] MEDS ORDERED: AMLO1TAB25 PO (09:21)
[2021-08-28] MEDS ORDERED: LIDO5TD TD (09:21)
[2021-08-28] MEDS ORDERED: LISI20TA37 PO (09:21)
== END 2021-08-28 11:05 | disposition home or self-care (01) | DRG 884 ==
LOC: M ED 21:46 → M ED INP 08-20 11:19 → M PSY 08-20 14:53
PROVIDERS: ADMIT Student in an Organized Health Care Education/Training Program; ATTEND Student in an Organized Health Care Education/Training Program
DX: F06.31 Mood disorder due to known physiological condition with depressive features (principal); R45.851 Suicidal ideations; M50.00 Cervical disc disorder with myelopathy, unspecified cervical region; Z79.891 Long term (current) use of opiate analgesic; F10.10 Alcohol abuse, uncomplicated; F60.89 Other specific personality disorders; M47.896 Other spondylosis, lumbar region; M47.897 Other spondylosis, lumbosacral region; G89.29 Other chronic pain; Z63.4 Disappearance and death of family member; Z63.0 Problems in relationship with spouse or partner; S61.511A Laceration without foreign body of right wrist, initial encounter; X78.8XXA Intentional self-harm by other sharp object, initial encounter; Y92.009 Unspecified place in unspecified non-institutional (private) residence as the place of occurrence of the external cause; Z79.899 Other long term (current) drug therapy; Z88.0 Allergy status to penicillin; Z88.8 Allergy status to other drugs, medicaments and biological substances; Z20.822 Contact with and (suspected) exposure to COVID-19; G47.33 Obstructive sleep apnea (adult) (pediatric); K22.70 Barrett's esophagus without dysplasia; I10 Essential (primary) hypertension; E78.5 Hyperlipidemia, unspecified; F41.9 Anxiety disorder, unspecified; M19.90 Unspecified osteoarthritis, unspecified site; K76.0 Fatty (change of) liver, not elsewhere classified; K58.9 Irritable bowel syndrome, unspecified; H40.9 Unspecified glaucoma

== ENCOUNTER → 2021-09-06 | Outpatient (CLI) | payer MEDICARE ==
[~2021-09-06] MED LIST changes: +ABIL1TAB13 PO; +CYMB60CA4 PO; +D32000TA2 PO; +DIPH25CA32 PO; +FISH1CAP26 PO; +GABA-282 PO; +LATA0.0015 OU; +LIDO5TD TD; +MIRT-10 PO; +OXYC7.5T3 PO; +PRAV20TA2 PO; +TRAZ-252 PO
== END ==
LOC: M RAD 14:35
PROVIDERS: ATTEND Nurse Practitioner Family
DX: M50.13 Cervical disc disorder with radiculopathy, cervicothoracic region (principal)

== ENCOUNTER → 2021-09-08 | Outpatient (CLI) | payer MEDICARE | LOC: M PAIN 08:45 | PROVIDERS: ATTEND Anesthesiology | DX: M96.1 Postlaminectomy syndrome, not elsewhere classified (principal); M48.02 Spinal stenosis, cervical region; M50.10 Cervical disc disorder with radiculopathy, unspecified cervical region; I10 Essential (primary) hypertension; K22.70 Barrett's esophagus without dysplasia; G47.30 Sleep apnea, unspecified; F32.9 Major depressive disorder, single episode, unspecified; F41.9 Anxiety disorder, unspecified; K58.9 Irritable bowel syndrome, unspecified; K76.0 Fatty (change of) liver, not elsewhere classified; Z79.891 Long term (current) use of opiate analgesic; Z79.899 Other long term (current) drug therapy; Z88.0 Allergy status to penicillin; Z88.8 Allergy status to other drugs, medicaments and biological substances ==

== ENCOUNTER 2021-09-29 13:49 | Emergency (ER) | payer MEDICARE ==
[~2021-09-29] VITALS: Ht 175.3 cm; Wt 119.4 kg
[2021-09-29 15:57] LABS: BASO # 0.1 10^3/uL (0.0-0.2); BASO % 0.8 % (0.0-1.0); EOS # 0.2 10^3/uL (0.0-0.5); EOS % 2.7 % (0.0-3.0); HEMATOCRIT 42.6 % (42.0-52.0); HEMOGLOBIN 13.8 g/dl (13.5-17.5); LYMPH # 1.7 10^3/uL (1.5-5.0); MEAN CORPUSCULAR HEMOGLOBIN 30.6 pg (27.0-33.0); MEAN CORPUSCULAR HGB CONC 32.4 g/dl (32.0-36.5); MEAN CORPUSCULAR VOLUME 94.5 fl (80.0-96.0); MONO # 0.8 10^3/uL (0.0-0.8); MONO % 10.5 % (2.0-8.0); NEUTROPHILS # 5.1 10^3/uL (1.5-8.5); NEUTROPHILS % 64.2 % (36.0-66.0); PLATELET COUNT, AUTOMATED 176 10^3/uL (150-450); RED BLOOD COUNT 4.51 10^6/uL (4.30-6.10); WHITE BLOOD COUNT 7.9 10^3/uL (4.0-10.0)
[2021-09-29 16:11] LABS: INR 0.97; PARTIAL THROMBOPLASTIN TIME 29.1 SECONDS (25.9-37.0); PROTHROMBIN TIME 13.3 SECONDS (12.7-14.5)
[2021-09-29 16:31] LABS: ALBUMIN 3.7 GM/DL (3.2-5.2); ALT/SGPT 52 U/L (12-78); BILIRUBIN,DIRECT < 0.1 MG/DL (0.0-0.2); BILIRUBIN,TOTAL 0.4 MG/DL (0.2-1.0); BLOOD UREA NITROGEN 20 MG/DL (7-18); CALCIUM LEVEL 8.6 MG/DL (8.5-10.1); CARBON DIOXIDE LEVEL 33 MEQ/L (21-32); CHLORIDE LEVEL 100 MEQ/L (98-107); CREATININE FOR GFR 1.04 MG/DL (0.70-1.30); FREE T4 0.65 NG/DL (0.76-1.46); GLOMERULAR FILTRATION RATE > 60.0 (>56); GLUCOSE, FASTING 115 MG/DL (70-100); LIPASE 101 U/L (73-393); NT-PRO BNP < 5 PG/ML (<125); POTASSIUM SERUM 3.8 MEQ/L (3.5-5.1); SODIUM LEVEL 137 MEQ/L (136-145); TOTAL PROTEIN 6.5 GM/DL (6.4-8.2)
[2021-09-29 16:46] LABS: CK-MB VALUE MASS 4.1 NG/ML (<3.6); MB/CK RELATIVE INDEX 1.36 (< OR =4)
[2021-09-29 17:39] LABS: MB/CK RELATIVE INDEX 1.53 (< OR =4)
[2021-09-29] MEDS ORDERED: FUROSEMIDE 100MG/10ML VIAL (J1940) IV ONE (17:55)
[2021-09-29] MEDS ORDERED: CARVedilol 12.5 MG TAB PO ONE (17:55)
[2021-09-29] MEDS ORDERED: MORPHINE 4 MG/ML 1ML VIAL/SYRINGE IV ONE (18:35)
[2021-09-29 20:45] VITALS: BP 166/99
== END 2021-09-29 21:00 | disposition home or self-care (01) ==
LOC: M ED 13:49
DX: R60.9 Edema, unspecified (principal); I10 Essential (primary) hypertension; K21.9 Gastro-esophageal reflux disease without esophagitis; G89.29 Other chronic pain; M54.9 Dorsalgia, unspecified; Z79.899 Other long term (current) drug therapy; Z88.0 Allergy status to penicillin; Z88.8 Allergy status to other drugs, medicaments and biological substances
CPT/HCPCS: 71045; 80048; 80076; 82550; 82553; 83690; 83880; 84439; 84443; 84484; 85025; 85610; 85730; 93005; 93041; 93970; 94760; 96374; 96375; 99285; J1940; J2270

== ENCOUNTER → 2021-10-07 | Outpatient (REF) | payer MEDICARE ==
[2021-10-07 17:28] LABS: BLOOD UREA NITROGEN 20 MG/DL (7-18); CARBON DIOXIDE LEVEL 31 MEQ/L (21-32); CHLORIDE LEVEL 100 MEQ/L (98-107); CREATININE FOR GFR 1.06 MG/DL (0.70-1.30); GLOMERULAR FILTRATION RATE > 60.0 (>56); GLUCOSE, FASTING 110 MG/DL (70-100); POTASSIUM SERUM 4.2 MEQ/L (3.5-5.1); SODIUM LEVEL 135 MEQ/L (136-145)
[2021-10-07 19:52] LABS: HEMOGLOBIN A1c 5.3 %
== END ==
LOC: M LABWUC 16:07
PROVIDERS: ATTEND Family Medicine
DX: I10 Essential (primary) hypertension (principal); Z79.899 Other long term (current) drug therapy

== ENCOUNTER → 2021-10-23 | Outpatient (CLI) | payer MEDICARE | LOC: M WUC 11:18 | PROVIDERS: ATTEND Internal Medicine Cardiovascular Disease | DX: I50.9 Heart failure, unspecified (principal); I27.20 Pulmonary hypertension, unspecified ==

== ENCOUNTER → 2021-10-27 | Outpatient (CLI) | payer MEDICARE ==
[2021-10-27 12:01] LABS: BLOOD UREA NITROGEN 16 MG/DL (7-18); CARBON DIOXIDE LEVEL 30 MEQ/L (21-32); CHLORIDE LEVEL 105 MEQ/L (98-107); CREATININE FOR GFR 1.03 MG/DL (0.70-1.30); FREE T4 0.55 NG/DL (0.76-1.46); GLOMERULAR FILTRATION RATE > 60.0 (>56); GLUCOSE, FASTING 113 MG/DL (70-100); NT-PRO BNP 18 PG/ML (<125); POTASSIUM SERUM 4.3 MEQ/L (3.5-5.1); SODIUM LEVEL 141 MEQ/L (136-145)
[2021-10-28 13:07] LABS: CREATININE, URINE 21.9 MG/DL; MALB URINE SIEMENS < 5.0 MG/L; MAU/CREAT RATIO 22.8 MCG/MG (0.0-30.0)
== END ==
LOC: M LAB 09:52
PROVIDERS: ATTEND Internal Medicine Cardiovascular Disease
DX: R06.02 Shortness of breath (principal); I10 Essential (primary) hypertension; R23.2 Flushing

== ENCOUNTER → 2021-10-27 | Outpatient (CLI) | payer MEDICARE | LOC: M LABSMTC 11:04 | PROVIDERS: ATTEND Anesthesiology | DX: Z11.52 Encounter for screening for COVID-19 (principal) ==

== ENCOUNTER → 2021-10-30 | Outpatient (CLI) | payer MEDICARE ==
[~2021-10-30] MED LIST changes: +BUPIVACAINE HCL 0.25% 30ML VIAL As Ordered ONE; +ISOVUE-M 300 61% 15ML VIAL As Ordered ONE; +LIDOCAINE 1% SDV 30ML VIAL As Ordered ONE; +dexameTHASONE 10MG/1ML VIAL PRES.FREE (J1100 PER 1MG) As Ordered ONE; +diazePAM 5MG TABLET As Ordered ONE; +oxyCODONE 5MG TAB As Ordered ONE
== END ==
LOC: M PAIN 13:30
PROVIDERS: ATTEND Anesthesiology
DX: M96.1 Postlaminectomy syndrome, not elsewhere classified (principal); G89.29 Other chronic pain; G47.30 Sleep apnea, unspecified; Z86.14 Personal history of Methicillin resistant Staphylococcus aureus infection; Z86.59 Personal history of other mental and behavioral disorders; Z88.0 Allergy status to penicillin; Z88.8 Allergy status to other drugs, medicaments and biological substances; E66.01 Morbid (severe) obesity due to excess calories; Z68.41 Body mass index [BMI] 40.0-44.9, adult; Z79.899 Other long term (current) drug therapy
CPT/HCPCS: 64483; 64484; J1100; Q9967

== ENCOUNTER → 2021-11-04 | Outpatient (CLI) | payer MEDICARE ==
[~2021-11-04] MED LIST changes: -BUPIVACAINE HCL 0.25% 30ML VIAL As Ordered ONE; -ISOVUE-M 300 61% 15ML VIAL As Ordered ONE; -LIDOCAINE 1% SDV 30ML VIAL As Ordered ONE; -dexameTHASONE 10MG/1ML VIAL PRES.FREE (J1100 PER 1MG) As Ordered ONE; -diazePAM 5MG TABLET As Ordered ONE; -oxyCODONE 5MG TAB As Ordered ONE
== END ==
LOC: M CARPUL 14:32
PROVIDERS: ATTEND Internal Medicine Cardiovascular Disease
DX: R06.02 Shortness of breath (principal)

== ENCOUNTER → 2021-11-06 | Outpatient (CLI) | payer MEDICARE | LOC: M RAD 08:45 | PROVIDERS: ATTEND Internal Medicine Cardiovascular Disease | DX: I10 Essential (primary) hypertension (principal) ==

== ENCOUNTER → 2021-11-19 | Outpatient (CLI) | payer MEDICARE ==
[~2021-11-19] MED LIST changes: +ABIL1TAB11 PO; +ALDA50TA2 PO; +BENA25CA4 PO; +CARV12.5 PO; +D3 H2000 PO; +DIOV80TA3 PO; +DULO60CA35 PO; +FERR1TAB8 PO; +FLAXPOW PO; +FURO40TA2 PO; +GABA-1171 PO; +HYDR25TA PO; +MIRT-60 PO; +TORS20TA2 PO; +TRAZ-189 PO; +VALS1TAB68 PO; +XALA0.007 OU
[2021-11-19 19:22] LABS: BLOOD UREA NITROGEN 18 MG/DL (7-18); CALCIUM LEVEL 8.6 MG/DL (8.5-10.1); CARBON DIOXIDE LEVEL 34 MEQ/L (21-32); CHLORIDE LEVEL 101 MEQ/L (98-107); CREATININE FOR GFR 0.99 MG/DL (0.70-1.30); GLOMERULAR FILTRATION RATE > 60.0 (>56); GLUCOSE, FASTING 138 MG/DL (70-100); MAGNESIUM LEVEL 2.3 MG/DL (1.8-2.4); NT-PRO BNP 12 PG/ML (<125); SODIUM LEVEL 138 MEQ/L (136-145)
== END ==
LOC: M WUC 13:17
PROVIDERS: ATTEND Physician Assistant
DX: I50.9 Heart failure, unspecified (principal)

== ENCOUNTER → 2021-11-19 | Outpatient (CLI) | payer MEDICARE ==
[~2021-11-19] MED LIST changes: -ABIL1TAB11 PO; -ALDA50TA2 PO; -BENA25CA4 PO; -CARV12.5 PO; -D3 H2000 PO; -DIOV80TA3 PO; -DULO60CA35 PO; -FERR1TAB8 PO; -FLAXPOW PO; -FURO40TA2 PO; -GABA-1171 PO; -HYDR25TA PO; -MIRT-60 PO; -TORS20TA2 PO; -TRAZ-189 PO; -VALS1TAB68 PO; -XALA0.007 OU
[2021-11-19 18:33] LABS: HEMATOCRIT 39.9 % (42.0-52.0)
== END ==
LOC: M WUC 13:13
PROVIDERS: ATTEND Nurse Practitioner Family
DX: E29.1 Testicular hypofunction (principal)
CPT/HCPCS: 36415; 84403; 85014; 85018; G0103

== ENCOUNTER 2021-11-22 20:14 | Inpatient (IN) | payer MEDICARE ==
[~2021-11-22] VITALS: Ht 175.3 cm; Wt 128.8 kg
[2021-11-22] MEDS ORDERED: CARV12.5 PO (20:35)
[2021-11-22] MEDS ORDERED: VALS1TAB68 PO (20:35)
[2021-11-22] MEDS ORDERED: ESOM1CAP5 PO (20:35)
[2021-11-22] MEDS ORDERED: TORS20TA2 PO (20:35)
[2021-11-22] MEDS ORDERED: FUROSEMIDE 40MG/4ML VIAL (J1940) IV ONE (21:35)
[2021-11-22 22:22] LABS: BASO % 0.4 % (0.0-1.0); EOS # 0.2 10^3/uL (0.0-0.5); EOS % 2.7 % (0.0-3.0); HEMATOCRIT 40.1 % (42.0-52.0); HEMOGLOBIN 12.9 g/dl (13.5-17.5); LYMPH # 1.7 10^3/uL (1.5-5.0); LYMPH % 21.5 % (24.0-44.0); MEAN CORPUSCULAR HEMOGLOBIN 29.7 pg (27.0-33.0); MEAN CORPUSCULAR HGB CONC 32.2 g/dl (32.0-36.5); MEAN CORPUSCULAR VOLUME 92.2 fl (80.0-96.0); MONO # 0.8 10^3/uL (0.0-0.8); MONO % 9.9 % (2.0-8.0); NEUTROPHILS # 5.1 10^3/uL (1.5-8.5); NEUTROPHILS % 64.9 % (36.0-66.0); PLATELET COUNT, AUTOMATED 165 10^3/uL (150-450); RED BLOOD COUNT 4.35 10^6/uL (4.30-6.10); WHITE BLOOD COUNT 7.9 10^3/uL (4.0-10.0)
[2021-11-22 22:51] LABS: RSV AMPLIFICATION NEGATIVE (NEGATIVE)
[2021-11-22] MEDS ORDERED: MORPHINE 2 MG/ML 1ML VIAL IV ONE (22:55)
[2021-11-22 23:01] LABS: ALBUMIN 3.4 GM/DL (3.2-5.2); ALT/SGPT 50 U/L (12-78); BILIRUBIN,DIRECT 0.1 MG/DL (0.0-0.2); BILIRUBIN,TOTAL 0.5 MG/DL (0.2-1.0); BLOOD UREA NITROGEN 15 MG/DL (7-18); CALCIUM LEVEL 8.9 MG/DL (8.5-10.1); CARBON DIOXIDE LEVEL 31 MEQ/L (21-32); CHLORIDE LEVEL 105 MEQ/L (98-107); CREATININE FOR GFR 1.06 MG/DL (0.70-1.30); GLOMERULAR FILTRATION RATE > 60.0 (>56); GLUCOSE, FASTING 110 MG/DL (70-100); NT-PRO BNP 56 PG/ML (<125); POTASSIUM SERUM 3.8 MEQ/L (3.5-5.1); SODIUM LEVEL 140 MEQ/L (136-145); THYROXINE (T4) 4.4 UG/DL (4.5-12.0); TOTAL PROTEIN 6.2 GM/DL (6.4-8.2)
[2021-11-23] MEDS ORDERED: TIZA4CAP PO (00:23)
[2021-11-23] MEDS ORDERED: TRAZ-189 PO (00:23)
[2021-11-23] MEDS ORDERED: TEST200I14 IM (00:23)
[2021-11-23] MEDS ORDERED: FLAXPOW PO (00:23)
[2021-11-23] MEDS ORDERED: BENA25CA4 PO (00:23)
[2021-11-23] MEDS ORDERED: MIRT-60 PO (00:23)
[2021-11-23] MEDS ORDERED: DULO60CA35 PO (00:23)
[2021-11-23] MEDS ORDERED: D3 H2000 PO (00:23)
[2021-11-23] MEDS ORDERED: PRAV20TA2 PO (00:23)
[2021-11-23] MEDS ORDERED: ABIL1TAB11 PO (00:23)
[2021-11-23] MEDS ORDERED: VALS1TAB68 PO (00:23)
[2021-11-23] MEDS ORDERED: CARV12.5 PO (00:23)
[2021-11-23] MEDS ORDERED: TORS20TA2 PO (00:23)
[2021-11-23] MEDS ORDERED: PERC10TA26 PO ×2 (00:23)
[2021-11-23] MEDS ORDERED: XALA0.007 OU (00:23)
[2021-11-23] MEDS ORDERED: FERR1TAB8 PO (00:23)
[2021-11-23] MEDS ORDERED: ESOM1CAP5 PO (00:23)
[2021-11-23] MEDS ORDERED: GABA-1171 PO ×2 (00:23)
[2021-11-23] MEDS ORDERED: HOME MED LIST COMPLETE! XX SCH (00:25)
[2021-11-23] MEDS ORDERED: SPIRONOLACTONE 25 MG TAB PO ONE (00:30)
[2021-11-23 02:20] LABS: INR 1.03; PROTHROMBIN TIME 13.9 SECONDS (12.7-14.5)
[2021-11-23 02:21] LABS: PARTIAL THROMBOPLASTIN TIME 28.2 SECONDS (25.9-37.0)
[2021-11-23 02:35] VITALS: BP 190/100
[2021-11-23] MEDS ORDERED: diphenhydrAMINE 25MG CAP PO PRN (02:50)
[2021-11-23] MEDS: tiZANidine 4 MG TAB PO PRN (03:56)
[2021-11-23] MEDS: PERCOCET 5MG/325MG TAB PO PRN ×3 (03:57→20:59)
[2021-11-23 04:18] LABS: APPEARANCE, URINE MANUAL CLEAR (CLEAR); COLOR, URINE MANUAL YELLOW (YELLOW)
[2021-11-23 04:19] LABS: BILIRUBIN, URINE MANUAL NEGATIVE (NEGATIVE); BLOOD URINE MANUAL NEGATIVE (NEGATIVE); GLUCOSE, URINE (UA) MANUAL NEGATIVE (NEGATIVE); KETONE, URINE MANUAL NEGATIVE (NEGATIVE); LEUKOCYTE ESTERASE, URINE MAN NEGATIVE (NEGATIVE); NITRITE, URINE MANUAL NEGATIVE (NEGATIVE); PROTEIN, URINE MANUAL NEGATIVE (NEGATIVE); SPECIFIC GRAVITY,URINE MANUAL 1.015 (1.002-1.035); UROBILINOGEN, URINE MANUAL NORMAL (NORMAL)
[2021-11-23 05:24] VITALS: BP 143/95
[2021-11-23] MEDS: LEVOTHYROXINE 25MCG TABLET (0.025MG) PO SCH (05:46)
[2021-11-23 06:44] LABS: HEMATOCRIT 37.7 % (42.0-52.0); HEMOGLOBIN 12.5 g/dl (13.5-17.5); MEAN CORPUSCULAR HEMOGLOBIN 30.6 pg (27.0-33.0); MEAN CORPUSCULAR HGB CONC 33.2 g/dl (32.0-36.5); MEAN CORPUSCULAR VOLUME 92.2 fl (80.0-96.0); PLATELET COUNT, AUTOMATED 151 10^3/uL (150-450); RED BLOOD COUNT 4.09 10^6/uL (4.30-6.10); WHITE BLOOD COUNT 6.7 10^3/uL (4.0-10.0)
[2021-11-23 07:25] LABS: BLOOD UREA NITROGEN 16 MG/DL (7-18); CALCIUM LEVEL 8.6 MG/DL (8.5-10.1); CARBON DIOXIDE LEVEL 34 MEQ/L (21-32); CHLORIDE LEVEL 103 MEQ/L (98-107); CREATININE FOR GFR 1.02 MG/DL (0.70-1.30); GLOMERULAR FILTRATION RATE > 60.0 (>56); GLUCOSE, FASTING 128 MG/DL (70-100); POTASSIUM SERUM 4.1 MEQ/L (3.5-5.1); SODIUM LEVEL 141 MEQ/L (136-145)
[2021-11-23] MEDS: DOCUSATE SODIUM 100MG CAPSULE PO SCH ×2 (09:00→20:36)
[2021-11-23] MEDS ORDERED: SPIRONOLACTONE 25 MG TAB PO SCH (09:00)
[2021-11-23] MEDS: CARVedilol 12.5 MG TAB PO SCH ×2 (09:02→20:41)
[2021-11-23] MEDS: ENOXAPARIN 40MG/0.4ML SYRINGE (J1650 PER 10MG) SC SCH (09:03)
[2021-11-23] MEDS: FUROSEMIDE 40MG/4ML VIAL (J1940) IV SCH (09:03)
[2021-11-23] MEDS: OMEPRAZOLE 20MG CAP PO SCH (09:03)
[2021-11-23] MEDS: FERROUS SULFATE 325MG TAB PO SCH (09:03)
[2021-11-23] MEDS: GABAPENTIN 100 MG CAP PO SCH ×2 (11:54→20:42)
[2021-11-23] MEDS: DULoxetine 30MG CAPSULE (CYMBALTA) PO SCH (11:54)
[2021-11-23 12:59] LABS: CREATININE,RANDOM URINE < 13.0 MG/DL; TOTAL PROTEIN,RANDOM URINE < 5.0 MG/DL (0.0-12.0)
[2021-11-23 15:00] VITALS: BP 168/96
[2021-11-23] MEDS: ACETAMINOPHEN TAB 650MG DOSE (2X325MG) PO PRN (16:17)
[2021-11-23] MEDS: VALSARTAN 80 MG TAB (DIOVAN) PO SCH (20:40)
[2021-11-23] MEDS: traZODone 100 MG TAB PO SCH (20:40)
[2021-11-23] MEDS: PRAVASTATIN 20 MG TAB PO SCH (20:40)
[2021-11-23] MEDS: MIRTAZAPINE 15 MG TAB PO SCH (20:41)
[2021-11-23] MEDS: LATANOPROST 0.005% OPHTH SOLN 2.5 ML OU SCH (20:42)
[2021-11-23] MEDS ORDERED: PERCOCET 5MG/325MG TAB PO SCH (21:00)
[2021-11-23 21:45] VITALS: BP_SYST 168; BP_SYST 170; BP_DIAS 106; BP_DIAS 92
[2021-11-23] MEDS ORDERED: **hydrALAZINE** 50 MG TAB PO ONE (21:55)
[2021-11-23 23:30] VITALS: BP 158/98
[2021-11-24] MEDS: PERCOCET 5MG/325MG TAB PO PRN ×3 (05:00→21:00)
[2021-11-24] MEDS: LEVOTHYROXINE 25MCG TABLET (0.025MG) PO SCH (05:32)
[2021-11-24 05:35] VITALS: BP 160/98
[2021-11-24] MEDS: CARVedilol 12.5 MG TAB PO SCH ×2 (05:41→20:45)
[2021-11-24 06:00] VITALS: BP 180/93
[2021-11-24 06:07] LABS: HEMATOCRIT 39.4 % (42.0-52.0); HEMOGLOBIN 12.7 g/dl (13.5-17.5); MEAN CORPUSCULAR HEMOGLOBIN 29.3 pg (27.0-33.0); MEAN CORPUSCULAR HGB CONC 32.2 g/dl (32.0-36.5); MEAN CORPUSCULAR VOLUME 90.8 fl (80.0-96.0); PLATELET COUNT, AUTOMATED 143 10^3/uL (150-450); RED BLOOD COUNT 4.34 10^6/uL (4.30-6.10); WHITE BLOOD COUNT 6.3 10^3/uL (4.0-10.0)
[2021-11-24 06:10] VITALS: BP 160/98
[2021-11-24 06:56] LABS: BLOOD UREA NITROGEN 21 MG/DL (7-18); CALCIUM LEVEL 8.4 MG/DL (8.5-10.1); CARBON DIOXIDE LEVEL 32 MEQ/L (21-32); CHLORIDE LEVEL 103 MEQ/L (98-107); CREATININE FOR GFR 0.99 MG/DL (0.70-1.30); GLOMERULAR FILTRATION RATE > 60.0 (>56); GLUCOSE, FASTING 123 MG/DL (70-100); MAGNESIUM LEVEL 2.2 MG/DL (1.8-2.4); SODIUM LEVEL 140 MEQ/L (136-145)
[2021-11-24] MEDS: ACETAMINOPHEN TAB 650MG DOSE (2X325MG) PO PRN (09:46)
[2021-11-24] MEDS: DOCUSATE SODIUM 100MG CAPSULE PO SCH ×2 (09:47→20:45)
[2021-11-24] MEDS: OMEPRAZOLE 20MG CAP PO SCH (09:47)
[2021-11-24] MEDS: SPIRONOLACTONE 50 MG TAB PO SCH (09:47)
[2021-11-24] MEDS: FUROSEMIDE 40MG/4ML VIAL (J1940) IV SCH (09:47)
[2021-11-24] MEDS: ENOXAPARIN 40MG/0.4ML SYRINGE (J1650 PER 10MG) SC SCH (09:48)
[2021-11-24] MEDS: FERROUS SULFATE 325MG TAB PO SCH (09:48)
[2021-11-24] MEDS: GABAPENTIN 100 MG CAP PO SCH ×2 (12:55→20:45)
[2021-11-24] MEDS: DULoxetine 30MG CAPSULE (CYMBALTA) PO SCH (12:55)
[2021-11-24 14:00] VITALS: BP 173/94
[2021-11-24] MEDS ORDERED: hydrALAZINE 20MG/ML 1ML VIAL (J0360 PER 20MG) IV PRN (14:30)
[2021-11-24] MEDS ORDERED: CARVedilol 12.5 MG TAB PO ONE (14:40)
[2021-11-24] MEDS ORDERED: **hydrALAZINE HCL** 25 MG TAB PO PRN (14:40)
[2021-11-24 18:34] VITALS: BP 160/92
[2021-11-24 20:00] VITALS: BP 174/95
[2021-11-24] MEDS: LATANOPROST 0.005% OPHTH SOLN 2.5 ML OU SCH (20:43)
[2021-11-24] MEDS: tiZANidine 4 MG TAB PO PRN (20:44)
[2021-11-24] MEDS: traZODone 100 MG TAB PO SCH (20:44)
[2021-11-24] MEDS: MIRTAZAPINE 15 MG TAB PO SCH (20:44)
[2021-11-24] MEDS: VALSARTAN 80 MG TAB (DIOVAN) PO SCH (20:44)
[2021-11-24] MEDS: PRAVASTATIN 20 MG TAB PO SCH (20:45)
[2021-11-25] MEDS: PERCOCET 5MG/325MG TAB PO PRN (05:08)
[2021-11-25] MEDS: LEVOTHYROXINE 25MCG TABLET (0.025MG) PO SCH (05:36)
[2021-11-25 06:00] VITALS: BP 150/99
[2021-11-25 06:56] LABS: HEMATOCRIT 39.6 % (42.0-52.0); HEMOGLOBIN 12.8 g/dl (13.5-17.5); MEAN CORPUSCULAR HEMOGLOBIN 29.9 pg (27.0-33.0); MEAN CORPUSCULAR HGB CONC 32.3 g/dl (32.0-36.5); MEAN CORPUSCULAR VOLUME 92.5 fl (80.0-96.0); PLATELET COUNT, AUTOMATED 137 10^3/uL (150-450); RED BLOOD COUNT 4.28 10^6/uL (4.30-6.10); WHITE BLOOD COUNT 5.5 10^3/uL (4.0-10.0)
[2021-11-25 07:23] LABS: BLOOD UREA NITROGEN 19 MG/DL (7-18); CALCIUM LEVEL 8.9 MG/DL (8.5-10.1); CARBON DIOXIDE LEVEL 30 MEQ/L (21-32); CHLORIDE LEVEL 102 MEQ/L (98-107); GLOMERULAR FILTRATION RATE > 60.0 (>56); GLUCOSE, FASTING 118 MG/DL (70-100); MAGNESIUM LEVEL 2.4 MG/DL (1.8-2.4); POTASSIUM SERUM 4.4 MEQ/L (3.5-5.1); SODIUM LEVEL 136 MEQ/L (136-145)
[2021-11-25] MEDS: ENOXAPARIN 40MG/0.4ML SYRINGE (J1650 PER 10MG) SC SCH (07:56)
[2021-11-25] MEDS: FUROSEMIDE 40MG/4ML VIAL (J1940) IV SCH (07:56)
[2021-11-25] MEDS: FERROUS SULFATE 325MG TAB PO SCH (07:57)
[2021-11-25] MEDS: SPIRONOLACTONE 50 MG TAB PO SCH (07:57)
[2021-11-25] MEDS: DOCUSATE SODIUM 100MG CAPSULE PO SCH (07:57)
[2021-11-25] MEDS: OMEPRAZOLE 20MG CAP PO SCH (07:57)
[2021-11-25] MEDS: CARVedilol 12.5 MG TAB PO SCH (07:58)
[2021-11-25 08:25] VITALS: BP 168/98
[2021-11-25] MEDS ORDERED: **hydrALAZINE HCL** 25 MG TAB PO SCH (09:00)
[2021-11-25] MEDS ORDERED: DIOV80TA3 PO (09:46)
[2021-11-25] MEDS ORDERED: HYDR25TA PO (09:46)
[2021-11-25] MEDS ORDERED: FURO40TA2 PO (09:46)
[2021-11-25] MEDS ORDERED: ALDA50TA2 PO (09:46)
[2021-11-25] MEDS ORDERED: CARV12.5 PO (09:46)
[2021-11-25] MEDS: GABAPENTIN 100 MG CAP PO SCH (12:04)
[2021-11-25] MEDS: DULoxetine 30MG CAPSULE (CYMBALTA) PO SCH (12:05)
[2021-11-25] MEDS: ACETAMINOPHEN TAB 650MG DOSE (2X325MG) PO PRN (12:06)
[2021-11-26] MEDS ORDERED: HYDR25TA PO (15:30)
== END 2021-11-25 12:43 | disposition home or self-care (01) | DRG 291 ==
LOC: M ED 20:14 → M ED INP 11-23 00:26 → M MSPAV 11-23 02:23
PROVIDERS: ADMIT Family Medicine; ATTEND Internal Medicine
DX: I11.0 Hypertensive heart disease with heart failure (principal); I50.33 Acute on chronic diastolic (congestive) heart failure; E66.2 Morbid (severe) obesity with alveolar hypoventilation; Z68.41 Body mass index [BMI] 40.0-44.9, adult; K21.9 Gastro-esophageal reflux disease without esophagitis; F41.9 Anxiety disorder, unspecified; F32.A Depression, unspecified; M10.9 Gout, unspecified; M54.9 Dorsalgia, unspecified; G89.29 Other chronic pain; Z90.49 Acquired absence of other specified parts of digestive tract; E03.9 Hypothyroidism, unspecified; D64.9 Anemia, unspecified; Z20.822 Contact with and (suspected) exposure to COVID-19; Z79.891 Long term (current) use of opiate analgesic; Z79.899 Other long term (current) drug therapy; Z88.0 Allergy status to penicillin; Z88.8 Allergy status to other drugs, medicaments and biological substances; Z79.890 Hormone replacement therapy; K44.9 Diaphragmatic hernia without obstruction or gangrene; E78.5 Hyperlipidemia, unspecified

== ENCOUNTER 2021-12-15 17:46 | Inpatient (IN) | payer MEDICARE ==
[~2021-12-15] VITALS: Ht 175.3 cm; Wt 125.0 kg
[~2021-12-15 17:46] MED LIST changes: +ABIL1TAB11 PO; +ALDA50TA2 PO; +BENA25CA4 PO; +CARV12.5 PO; +D3 H2000 PO; +DIOV80TA3 PO; +DULO60CA35 PO; +FERR1TAB8 PO; +FLAXPOW PO; +FURO40TA2 PO; +GABA-1171 PO; +HYDR25TA PO; +MIRT-60 PO; +TORS20TA2 PO; +TRAZ-189 PO; +VALS1TAB68 PO; +XALA0.007 OU
[2021-12-15 18:54] LABS: BASO # 0.1 10^3/uL (0.0-0.2); BASO % 0.6 % (0.0-1.0); EOS # 0.2 10^3/uL (0.0-0.5); EOS % 2.8 % (0.0-3.0); HEMATOCRIT 40.5 % (42.0-52.0); HEMOGLOBIN 13.2 g/dl (13.5-17.5); LYMPH # 1.3 10^3/uL (1.5-5.0); LYMPH % 16.2 % (24.0-44.0); MEAN CORPUSCULAR HEMOGLOBIN 30.4 pg (27.0-33.0); MEAN CORPUSCULAR HGB CONC 32.6 g/dl (32.0-36.5); MEAN CORPUSCULAR VOLUME 93.3 fl (80.0-96.0); MONO # 0.8 10^3/uL (0.0-0.8); MONO % 9.2 % (2.0-8.0); NEUTROPHILS # 5.8 10^3/uL (1.5-8.5); NEUTROPHILS % 70.2 % (36.0-66.0); PLATELET COUNT, AUTOMATED 193 10^3/uL (150-450); RED BLOOD COUNT 4.34 10^6/uL (4.30-6.10); WHITE BLOOD COUNT 8.2 10^3/uL (4.0-10.0)
[2021-12-15 19:09] LABS: INR 0.91; PROTHROMBIN TIME 12.6 SECONDS (12.7-14.5)
[2021-12-15 19:37] LABS: RSV AMPLIFICATION NEGATIVE (NEGATIVE)
[2021-12-15 19:41] LABS: CK-MB VALUE MASS 4.7 NG/ML (<3.6); MB/CK RELATIVE INDEX 0.98 (< OR =4)
[2021-12-15 19:44] LABS: ALBUMIN 3.8 GM/DL (3.2-5.2); ALT/SGPT 75 U/L (12-78); BILIRUBIN,DIRECT < 0.1 MG/DL (0.0-0.2); BILIRUBIN,TOTAL 0.3 MG/DL (0.2-1.0); BLOOD UREA NITROGEN 20 MG/DL (7-18); CALCIUM LEVEL 9.2 MG/DL (8.5-10.1); CARBON DIOXIDE LEVEL 31 MEQ/L (21-32); CHLORIDE LEVEL 103 MEQ/L (98-107); CREATININE FOR GFR 1.09 MG/DL (0.70-1.30); GLOMERULAR FILTRATION RATE > 60.0 (>56); GLUCOSE, FASTING 120 MG/DL (70-100); NT-PRO BNP 28 PG/ML (<125); POTASSIUM SERUM 4.5 MEQ/L (3.5-5.1); SODIUM LEVEL 136 MEQ/L (136-145); THYROXINE (T4) 5.9 UG/DL (4.5-12.0); TOTAL PROTEIN 6.9 GM/DL (6.4-8.2)
[2021-12-15] MEDS ORDERED: ONDANSETRON 4MG 2ML VIAL IV ONE (19:50)
[2021-12-15] MEDS ORDERED: MORPHINE 4 MG/ML 1ML VIAL/SYRINGE IV PRN (19:50)
[2021-12-15] MEDS ORDERED: FUROSEMIDE 100MG/10ML VIAL (J1940) IV ONE (19:50)
[2021-12-15] MEDS ORDERED: ISOVUE-370 76% 100ML VIAL As Ordered ONE (20:01)
[2021-12-15] MEDS ORDERED: HYDR-3910 PO (23:33)
[2021-12-15] MEDS ORDERED: VALS1TAB68 PO (23:33)
[2021-12-15] MEDS ORDERED: FLAX1CAP5 PO (23:33)
[2021-12-15] MEDS ORDERED: SPIR50TA4 PO (23:33)
[2021-12-15] MEDS ORDERED: FURO40TA2 PO (23:33)
[2021-12-15] MEDS ORDERED: HOME MED LIST COMPLETE! XX SCH (23:35)
[2021-12-15 23:43] VITALS: BP 137/74
[2021-12-16] MEDS ORDERED: tiZANidine 4 MG TAB PO PRN (00:35)
[2021-12-16] MEDS: PERCOCET 5MG/325MG TAB PO PRN ×2 (01:42→15:41)
[2021-12-16 06:28] LABS: BLOOD UREA NITROGEN 19 MG/DL (7-18); CALCIUM LEVEL 8.7 MG/DL (8.5-10.1); CARBON DIOXIDE LEVEL 32 MEQ/L (21-32); CHLORIDE LEVEL 102 MEQ/L (98-107); CREATININE FOR GFR 1.03 MG/DL (0.70-1.30); GLOMERULAR FILTRATION RATE > 60.0 (>56); GLUCOSE, FASTING 122 MG/DL (70-100); MAGNESIUM LEVEL 2.3 MG/DL (1.8-2.4); POTASSIUM SERUM 4.5 MEQ/L (3.5-5.1); SODIUM LEVEL 139 MEQ/L (136-145)
[2021-12-16] MEDS: HEPARIN SOD (PORCINE) 5000UNITS/ML 1ML VIAL/SYRINGE SC SCH ×3 (06:52→21:13)
[2021-12-16 08:00] VITALS: BP 127/78
[2021-12-16] MEDS ORDERED: KETOROLAC 30 MG/ML 1ML VIAL IV ONE (08:50)
[2021-12-16] MEDS ORDERED: FUROSEMIDE 20MG/2ML VIAL (J1940) IV SCH (09:00)
[2021-12-16] MEDS: CARVedilol 12.5 MG TAB PO SCH ×2 (09:05→21:13)
[2021-12-16] MEDS: OMEPRAZOLE 20MG CAP PO SCH (09:05)
[2021-12-16] MEDS: SPIRONOLACTONE 50 MG TAB PO SCH (09:05)
[2021-12-16] MEDS: FERROUS SULFATE 325MG TAB PO SCH (09:05)
[2021-12-16] MEDS: VALSARTAN 80 MG TAB (DIOVAN) PO SCH (09:05)
[2021-12-16] MEDS: FUROSEMIDE 100MG/10ML VIAL (J1940) IV SCH ×2 (09:57→17:14)
[2021-12-16] MEDS ORDERED: PILL CUTTER 1 EACH XX PRN (11:35)
[2021-12-16 12:00] VITALS: BP 139/63
[2021-12-16] MEDS: GABAPENTIN 100 MG CAP PO SCH (13:04)
[2021-12-16 15:34] VITALS: BP 162/86
[2021-12-16 16:00] VITALS: BP 147/68
[2021-12-16] MEDS ORDERED: traZODone 100 MG TAB PO SCH (21:00)
[2021-12-16] MEDS ORDERED: LATANOPROST 0.005% OPHTH SOLN 2.5 ML OU SCH (21:00)
[2021-12-16] MEDS ORDERED: GABAPENTIN 100 MG CAP PO SCH (21:00)
[2021-12-16] MEDS ORDERED: MIRTAZAPINE 15 MG TAB PO SCH ×2 (21:00)
[2021-12-16] MEDS ORDERED: PRAVASTATIN 20 MG TAB PO SCH (21:00)
[2021-12-16 22:00] VITALS: BP 146/86
[2021-12-17] MEDS: HEPARIN SOD (PORCINE) 5000UNITS/ML 1ML VIAL/SYRINGE SC SCH ×2 (05:02→14:01)
[2021-12-17] MEDS: PERCOCET 5MG/325MG TAB PO PRN ×2 (05:03→12:43)
[2021-12-17 05:19] LABS: BASO % 0.6 % (0.0-1.0); EOS # 0.2 10^3/uL (0.0-0.5); EOS % 2.3 % (0.0-3.0); HEMATOCRIT 40.8 % (42.0-52.0); HEMOGLOBIN 13.1 g/dl (13.5-17.5); LYMPH # 1.3 10^3/uL (1.5-5.0); LYMPH % 19.1 % (24.0-44.0); MEAN CORPUSCULAR HEMOGLOBIN 29.8 pg (27.0-33.0); MEAN CORPUSCULAR HGB CONC 32.1 g/dl (32.0-36.5); MEAN CORPUSCULAR VOLUME 92.9 fl (80.0-96.0); MONO # 0.8 10^3/uL (0.0-0.8); MONO % 11.6 % (2.0-8.0); NEUTROPHILS # 4.5 10^3/uL (1.5-8.5); NEUTROPHILS % 65.7 % (36.0-66.0); PLATELET COUNT, AUTOMATED 168 10^3/uL (150-450); RED BLOOD COUNT 4.39 10^6/uL (4.30-6.10); WHITE BLOOD COUNT 6.9 10^3/uL (4.0-10.0)
[2021-12-17 05:36] LABS: BLOOD UREA NITROGEN 22 MG/DL (7-18); CALCIUM LEVEL 9.1 MG/DL (8.5-10.1); CARBON DIOXIDE LEVEL 33 MEQ/L (21-32); CHLORIDE LEVEL 102 MEQ/L (98-107); CREATININE FOR GFR 1.11 MG/DL (0.70-1.30); GLOMERULAR FILTRATION RATE > 60.0 (>56); GLUCOSE, FASTING 117 MG/DL (70-100); MAGNESIUM LEVEL 2.3 MG/DL (1.8-2.4); POTASSIUM SERUM 4.1 MEQ/L (3.5-5.1); SODIUM LEVEL 137 MEQ/L (136-145)
[2021-12-17 06:00] VITALS: BP 148/98
[2021-12-17] MEDS: FERROUS SULFATE 325MG TAB PO SCH (08:58)
[2021-12-17] MEDS: OMEPRAZOLE 20MG CAP PO SCH (08:58)
[2021-12-17 09:00] VITALS: BP 148/90
[2021-12-17] MEDS: SPIRONOLACTONE 50 MG TAB PO SCH (09:00)
[2021-12-17] MEDS: VALSARTAN 80 MG TAB (DIOVAN) PO SCH (09:00)
[2021-12-17] MEDS: FUROSEMIDE 100MG/10ML VIAL (J1940) IV SCH (09:00)
[2021-12-17] MEDS: CARVedilol 12.5 MG TAB PO SCH (09:00)
[2021-12-17] MEDS ORDERED: TORS20TA2 PO (11:14)
[2021-12-17] MEDS ORDERED: MIRT-60 PO (11:14)
[2021-12-17] MEDS: GABAPENTIN 100 MG CAP PO SCH (12:42)
[2021-12-17] MEDS ORDERED: metOLazone 5 MG TAB PO ONE (13:00)
[2021-12-17] MEDS ORDERED: FUROSEMIDE 100MG/10ML VIAL (J1940) IV ONE (14:00)
[2021-12-17 14:03] VITALS: BP 141/87
== END 2021-12-17 15:17 | disposition home or self-care (01) | DRG 948 ==
LOC: M ED 17:46 → M ED INP 21:36 → M PCU 23:40 → M MSPAV 12-16 16:37
PROVIDERS: ADMIT Internal Medicine; ATTEND Internal Medicine Nephrology
DX: R60.1 Generalized edema (principal); Z68.41 Body mass index [BMI] 40.0-44.9, adult; K76.0 Fatty (change of) liver, not elsewhere classified; Z79.891 Long term (current) use of opiate analgesic; I10 Essential (primary) hypertension; M54.50 Low back pain, unspecified; K21.9 Gastro-esophageal reflux disease without esophagitis; Z20.822 Contact with and (suspected) exposure to COVID-19; Z79.899 Other long term (current) drug therapy; Z88.0 Allergy status to penicillin; Z88.8 Allergy status to other drugs, medicaments and biological substances; G47.33 Obstructive sleep apnea (adult) (pediatric); T43.505A Adverse effect of unspecified antipsychotics and neuroleptics, initial encounter; T43.025A Adverse effect of tetracyclic antidepressants, initial encounter; K22.70 Barrett's esophagus without dysplasia; E78.5 Hyperlipidemia, unspecified; F32.A Depression, unspecified; F41.9 Anxiety disorder, unspecified; M19.90 Unspecified osteoarthritis, unspecified site; K58.9 Irritable bowel syndrome, unspecified; E66.01 Morbid (severe) obesity due to excess calories

== ENCOUNTER → 2021-12-19 | Outpatient (CLI) | payer MEDICARE ==
[~2021-12-19] MED LIST changes: +FLAX1CAP5 PO; +HYDR-3910 PO; +SPIR50TA4 PO
[2021-12-19 10:21] LABS: CALCIUM LEVEL 9.4 MG/DL (8.5-10.1); CREATININE FOR GFR 2.55 MG/DL (0.70-1.30); GLOMERULAR FILTRATION RATE 27.8 (>56)
== END ==
LOC: M LAB 09:04
PROVIDERS: ATTEND Internal Medicine Nephrology
DX: E87.6 Hypokalemia (principal)

== ENCOUNTER → 2021-12-19 | Outpatient (CLI) | payer MEDICARE ==
[2021-12-19 10:21] LABS: FREE T4 0.71 NG/DL (0.76-1.46); THYROID STIMULATING HORMONE 3.37 uIU/ML (0.358-3.740)
== END ==
LOC: M LAB 09:07
PROVIDERS: ATTEND Nurse Practitioner Family
DX: R53.83 Other fatigue (principal)

== ENCOUNTER 2021-12-30 00:17 | Emergency (ER) | payer MEDICARE ==
[2021-12-30 00:44] LABS: BASO % 0.5 % (0.0-1.0); EOS # 0.3 10^3/uL (0.0-0.5); EOS % 3.8 % (0.0-3.0); HEMATOCRIT 37.7 % (42.0-52.0); HEMOGLOBIN 12.8 g/dl (13.5-17.5); LYMPH # 1.9 10^3/uL (1.5-5.0); LYMPH % 23.9 % (24.0-44.0); MEAN CORPUSCULAR HEMOGLOBIN 30.8 pg (27.0-33.0); MEAN CORPUSCULAR VOLUME 90.8 fl (80.0-96.0); NEUTROPHILS # 4.6 10^3/uL (1.5-8.5); NEUTROPHILS % 57.8 % (36.0-66.0); PLATELET COUNT, AUTOMATED 237 10^3/uL (150-450); RED BLOOD COUNT 4.15 10^6/uL (4.30-6.10); WHITE BLOOD COUNT 7.9 10^3/uL (4.0-10.0)
[2021-12-30] MEDS ORDERED: PERCOCET 5MG/325MG TAB PO ONE (01:40)
[2021-12-30 01:55] LABS: ALBUMIN 3.8 GM/DL (3.2-5.2); ALT/SGPT 47 U/L (12-78); BILIRUBIN,DIRECT < 0.1 MG/DL (0.0-0.2); BILIRUBIN,TOTAL 0.1 MG/DL (0.2-1.0); BLOOD UREA NITROGEN 25 MG/DL (7-18); CALCIUM LEVEL 8.7 MG/DL (8.5-10.1); CARBON DIOXIDE LEVEL 30 MEQ/L (21-32); CHLORIDE LEVEL 99 MEQ/L (98-107); CK-MB VALUE MASS 1.8 NG/ML (<3.6); CREATININE FOR GFR 1.43 MG/DL (0.70-1.30); GLOMERULAR FILTRATION RATE 54.3 (>56); GLUCOSE, FASTING 131 MG/DL (70-100); LIPASE 164 U/L (73-393); MB/CK RELATIVE INDEX 0.76 (< OR =4); NT-PRO BNP 8 PG/ML (<125); POTASSIUM SERUM 4.1 MEQ/L (3.5-5.1); SODIUM LEVEL 135 MEQ/L (136-145); TOTAL PROTEIN 6.6 GM/DL (6.4-8.2)
[2021-12-30] MEDS ORDERED: NS 1,000 ML IV ONE (02:10)
[2021-12-30] MEDS ORDERED: ISOVUE-370 76% 100ML VIAL As Ordered ONE (02:11)
[2021-12-30 02:49] LABS: CK-MB VALUE MASS 1.4 NG/ML (<3.6); MB/CK RELATIVE INDEX 0.63 (< OR =4)
[2021-12-30 03:15] VITALS: BP 109/56
== END 2021-12-30 04:00 | disposition home or self-care (01) ==
LOC: EDBD 00:17 → M ED 00:17
DX: R07.89 Other chest pain (principal); M17.11 Unilateral primary osteoarthritis, right knee; I11.0 Hypertensive heart disease with heart failure; E78.5 Hyperlipidemia, unspecified; K76.0 Fatty (change of) liver, not elsewhere classified; K22.70 Barrett's esophagus without dysplasia; Z88.0 Allergy status to penicillin; Z88.8 Allergy status to other drugs, medicaments and biological substances
CPT/HCPCS: 71045; 71275; 73560; 80048; 80076; 82550; 82553; 83690; 83880; 84443; 84484; 85025; 93005; 93041; 94760; 96360; 99285; Q9967

== ENCOUNTER → 2021-12-31 | Outpatient (REF) | payer MEDICARE | LOC: M LAB REF 16:52 | PROVIDERS: ATTEND Internal Medicine Nephrology | DX: I10 Essential (primary) hypertension (principal) ==

== ENCOUNTER → 2022-01-07 | Outpatient (CLI) | payer MEDICARE | LOC: M PAIN 11:30 | PROVIDERS: ATTEND Nurse Practitioner Family | DX: G89.29 Other chronic pain (principal); M96.1 Postlaminectomy syndrome, not elsewhere classified; I10 Essential (primary) hypertension; K22.70 Barrett's esophagus without dysplasia; G47.30 Sleep apnea, unspecified; M54.9 Dorsalgia, unspecified; E29.1 Testicular hypofunction; F32.9 Major depressive disorder, single episode, unspecified; F41.9 Anxiety disorder, unspecified; M15.9 Polyosteoarthritis, unspecified; K58.9 Irritable bowel syndrome, unspecified; K76.0 Fatty (change of) liver, not elsewhere classified; L30.9 Dermatitis, unspecified; Z79.891 Long term (current) use of opiate analgesic; Z79.899 Other long term (current) drug therapy; Z88.0 Allergy status to penicillin; Z88.8 Allergy status to other drugs, medicaments and biological substances ==

== ENCOUNTER → 2022-02-17 | Outpatient (CLI) | payer MEDICARE | LOC: M LABSMTC 09:39 | PROVIDERS: ATTEND Anesthesiology | DX: Z01.812 Encounter for preprocedural laboratory examination (principal); Z20.822 Contact with and (suspected) exposure to COVID-19 ==

== ENCOUNTER → 2022-02-20 | Outpatient (CLI) | payer MEDICARE ==
[~2022-02-20] MED LIST changes: +ISOVUE-M 300 61% 15ML VIAL As Ordered ONE; +LIDOCAINE 1% SDV 30ML VIAL As Ordered ONE; +diazePAM 5MG TABLET As Ordered ONE; +methylPREDNISolone SUSP 40MG/ML 1ML VIAL (DEPO MEDROL) As Ordered ONE; +oxyCODONE 5MG TAB As Ordered ONE
== END ==
LOC: M PAIN 08:15
PROVIDERS: ATTEND Anesthesiology
DX: M50.13 Cervical disc disorder with radiculopathy, cervicothoracic region (principal); I10 Essential (primary) hypertension; K22.70 Barrett's esophagus without dysplasia; G47.30 Sleep apnea, unspecified; F32.9 Major depressive disorder, single episode, unspecified; F41.9 Anxiety disorder, unspecified; M15.9 Polyosteoarthritis, unspecified; K58.9 Irritable bowel syndrome, unspecified; K76.0 Fatty (change of) liver, not elsewhere classified; R03.0 Elevated blood-pressure reading, without diagnosis of hypertension; Z79.891 Long term (current) use of opiate analgesic; Z79.899 Other long term (current) drug therapy; Z88.0 Allergy status to penicillin; Z88.8 Allergy status to other drugs, medicaments and biological substances
CPT/HCPCS: 62321; J1030; Q9967

== ENCOUNTER → 2022-03-09 | Outpatient (CLI) | payer MEDICARE ==
[~2022-03-09] MED LIST changes: -ISOVUE-M 300 61% 15ML VIAL As Ordered ONE; -LIDOCAINE 1% SDV 30ML VIAL As Ordered ONE; -diazePAM 5MG TABLET As Ordered ONE; -methylPREDNISolone SUSP 40MG/ML 1ML VIAL (DEPO MEDROL) As Ordered ONE; -oxyCODONE 5MG TAB As Ordered ONE
== END ==
LOC: M PAIN 10:00
PROVIDERS: ATTEND Nurse Practitioner Family
DX: M51.16 Intervertebral disc disorders with radiculopathy, lumbar region (principal); G89.29 Other chronic pain; I10 Essential (primary) hypertension; G47.30 Sleep apnea, unspecified; Z86.14 Personal history of Methicillin resistant Staphylococcus aureus infection; Z86.59 Personal history of other mental and behavioral disorders; Z88.0 Allergy status to penicillin; Z88.8 Allergy status to other drugs, medicaments and biological substances; Z79.899 Other long term (current) drug therapy

== ENCOUNTER → 2022-04-10 | Outpatient (CLI) | payer MEDICARE ==
[~2022-04-10] MED LIST changes: +DIPH-435 PO; -DIPH25CA32 PO
== END ==
LOC: M PAIN 08:45
PROVIDERS: ATTEND Nurse Practitioner Family
DX: M50.10 Cervical disc disorder with radiculopathy, unspecified cervical region (principal); G89.29 Other chronic pain; I10 Essential (primary) hypertension; K22.70 Barrett's esophagus without dysplasia; G47.30 Sleep apnea, unspecified; F32.A Depression, unspecified; F41.9 Anxiety disorder, unspecified; M15.9 Polyosteoarthritis, unspecified; K58.9 Irritable bowel syndrome, unspecified; K76.0 Fatty (change of) liver, not elsewhere classified; Z79.891 Long term (current) use of opiate analgesic; Z79.899 Other long term (current) drug therapy; Z88.0 Allergy status to penicillin; Z88.8 Allergy status to other drugs, medicaments and biological substances

== ENCOUNTER 2022-04-27 17:46 | Inpatient (IN) | payer MEDICARE ==
[~2022-04-27] VITALS: Ht 175.3 cm; Wt 124.1 kg
[2022-04-27] MEDS ORDERED: BUSP5TA (18:13)
[2022-04-27] MEDS ORDERED: ENTR1TAB (18:13)
[2022-04-27] MEDS ORDERED: AMLO1TAB24 (18:13)
[2022-04-27] MEDS ORDERED: FURO80TA2 (18:13)
[2022-04-27 18:41] LABS: BASO # 0.1 10^3/uL (0.0-0.2); BASO % 0.7 % (0.0-1.0); EOS # 0.1 10^3/uL (0.0-0.5); EOS % 1.1 % (0.0-3.0); HEMATOCRIT 42.3 % (42.0-52.0); HEMOGLOBIN 13.8 g/dl (13.5-17.5); LYMPH # 1.6 10^3/uL (1.5-5.0); LYMPH % 21.7 % (24.0-44.0); MEAN CORPUSCULAR HEMOGLOBIN 29.4 pg (27.0-33.0); MEAN CORPUSCULAR HGB CONC 32.6 g/dl (32.0-36.5); MEAN CORPUSCULAR VOLUME 90.2 fl (80.0-96.0); MONO # 0.7 10^3/uL (0.0-0.8); MONO % 9.4 % (2.0-8.0); NEUTROPHILS # 4.8 10^3/uL (1.5-8.5); NEUTROPHILS % 66.4 % (36.0-66.0); PLATELET COUNT, AUTOMATED 192 10^3/uL (150-450); RED BLOOD COUNT 4.69 10^6/uL (4.30-6.10); WHITE BLOOD COUNT 7.2 10^3/uL (4.0-10.0)
[2022-04-27 19:20] LABS: LIPASE 32 U/L (12-53)
[2022-04-27 19:23] LABS: ALBUMIN 3.9 G/DL (3.2-5.2); ALKALINE PHOSPHATASE 61 U/L (46-116); ALT/SGPT 86 U/L (7.0-40); AST/SGOT 65 U/L (<34); BILIRUBIN,DIRECT 0.1 MG/DL (<0.4); BILIRUBIN,TOTAL 0.5 MG/DL (0.3-1.2); BLOOD UREA NITROGEN 17 MG/DL (9-23); CALCIUM LEVEL 9.3 MG/DL (8.5-10.1); CARBON DIOXIDE LEVEL 29 MMOL/L (20-31); CHLORIDE LEVEL 99 MMOL/L (98-107); GLOMERULAR FILTRATION RATE > 60.0 (>56); GLUCOSE, FASTING 109 MG/DL (60-100); POTASSIUM SERUM 4.3 MMOL/L (3.5-5.1); SODIUM LEVEL 136 MMOL/L (136-145); TOTAL PROTEIN 6.8 G/DL (5.7-8.2)
[2022-04-27] MEDS ORDERED: NS 1,000 ML IV ONE (20:25)
[2022-04-27] MEDS ORDERED: KETOROLAC 30 MG/ML 1ML VIAL IV ONE (20:25)
[2022-04-27] MEDS ORDERED: GI COCKTAIL 50ML BTL(HYOSCYAMINE/MAALOX/LIDOCAINE VISCOUS)(1:3:1) PO ONE (20:25)
[2022-04-27] MEDS ORDERED: ISOVUE-370 76% 100ML VIAL As Ordered ONE (20:28)
[2022-04-27] MEDS: PANTOPRAZOLE 40MG VIAL IV SCH (21:00)
[2022-04-27 21:21] LABS: INR 0.98; PROTHROMBIN TIME 13.2 SECONDS (12.5-14.5)
[2022-04-27 21:22] LABS: PARTIAL THROMBOPLASTIN TIME 24.8 SECONDS (24.8-34.2)
[2022-04-27 21:30] LABS: RSV AMPLIFICATION NEGATIVE (NEGATIVE)
[2022-04-27 21:32] LABS: CK-MB VALUE MASS < 1.0 NG/ML (<3.6); CPK CREATINE PHOSPHOKINASE 195 U/L (46-171); MB/CK RELATIVE INDEX 0.51 (< OR =4)
[2022-04-27] MEDS ORDERED: SUCRALFATE SUSP 1GM/10ML UD PO ONE (22:20)
[2022-04-27] MEDS ORDERED: MORPHINE 4 MG/ML 1ML VIAL IV ONE (22:20)
[2022-04-27] MEDS ORDERED: ONDANSETRON 4MG 2ML VIAL IV ONE (22:20)
[2022-04-27] MEDS ORDERED: NS 1,000 ML IV SCH (22:50)
[2022-04-27] MEDS ORDERED: FURO80TA2 PO (23:43)
[2022-04-27] MEDS ORDERED: BUSP5TA PO (23:43)
[2022-04-27] MEDS ORDERED: LOPE2TAB12 PO (23:43)
[2022-04-27] MEDS ORDERED: OXYC10TA3 PO (23:43)
[2022-04-27] MEDS ORDERED: AMLO1TAB24 PO (23:43)
[2022-04-27] MEDS ORDERED: ENTR1TAB PO (23:43)
[2022-04-27] MEDS ORDERED: PEPT262S PO (23:43)
[2022-04-27] MEDS ORDERED: BACI1TAB4 PO (23:43)
[2022-04-27] MEDS ORDERED: HOME MED LIST COMPLETE! XX SCH (23:45)
[2022-04-28] MEDS: PERCOCET 5MG/325MG TAB PO PRN ×2 (06:01→15:52)
[2022-04-28 06:21] LABS: HEMATOCRIT 40.6 % (42.0-52.0)
[2022-04-28 06:46] LABS: ALBUMIN 3.7 G/DL (3.2-5.2); ALKALINE PHOSPHATASE 56 U/L (46-116); ALT/SGPT 89 U/L (7.0-40); AST/SGOT 81 U/L (<34); BILIRUBIN,TOTAL 0.7 MG/DL (0.3-1.2); BLOOD UREA NITROGEN 18 MG/DL (9-23); CALCIUM LEVEL 8.4 MG/DL (8.5-10.1); CARBON DIOXIDE LEVEL 27 MMOL/L (20-31); CHLORIDE LEVEL 101 MMOL/L (98-107); CREATININE FOR GFR 1.08 MG/DL (0.70-1.30); GLOMERULAR FILTRATION RATE > 60.0 (>56); GLUCOSE, FASTING 119 MG/DL (60-100); SODIUM LEVEL 134 MMOL/L (136-145); TOTAL PROTEIN 6.6 G/DL (5.7-8.2)
[2022-04-28] MEDS: ENTRESTO 24-26MG TABLET (SACUBITRIL/VALSARTAN) PO SCH ×2 (09:06→20:57)
[2022-04-28] MEDS: SPIRONOLACTONE 50 MG TAB PO SCH (09:06)
[2022-04-28] MEDS: busPIRone 5 MG TAB PO SCH ×2 (09:06→20:57)
[2022-04-28] MEDS: PANTOPRAZOLE 40MG VIAL IV SCH ×2 (09:06→20:57)
[2022-04-28] MEDS: CARVedilol 12.5 MG TAB PO SCH ×2 (09:08→21:03)
[2022-04-28] MEDS: amLODIPine 5 MG TAB PO SCH (09:08)
[2022-04-28 09:09] VITALS: BP 160/94
[2022-04-28 13:43] VITALS: BP 135/77
[2022-04-28 16:30] VITALS: BP 160/99
[2022-04-28] MEDS: NS 1,000 ML IV SCH (20:56)
[2022-04-28 21:49] VITALS: BP 144/75
[2022-04-28] MEDS ORDERED: SUCRALFATE SUSP 1GM/10ML UD PO ONE (22:50)
[2022-04-29] MEDS: PERCOCET 5MG/325MG TAB PO PRN ×3 (00:07→17:47)
[2022-04-29] MEDS: NS 1,000 ML IV SCH ×2 (05:42→13:48)
[2022-04-29] MEDS: LATANOPROST 0.005% OPHTH SOLN 2.5 ML OU SCH ×2 (05:42→20:55)
[2022-04-29 06:00] VITALS: BP 130/87
[2022-04-29 06:54] LABS: HEMATOCRIT 36.9 % (42.0-52.0); HEMOGLOBIN 11.7 g/dl (13.5-17.5); MEAN CORPUSCULAR HEMOGLOBIN 29.6 pg (27.0-33.0); MEAN CORPUSCULAR HGB CONC 31.7 g/dl (32.0-36.5); MEAN CORPUSCULAR VOLUME 93.4 fl (80.0-96.0); PLATELET COUNT, AUTOMATED 140 10^3/uL (150-450); RED BLOOD COUNT 3.95 10^6/uL (4.30-6.10); WHITE BLOOD COUNT 5.4 10^3/uL (4.0-10.0)
[2022-04-29 07:32] LABS: ALBUMIN 3.4 G/DL (3.2-5.2); ALKALINE PHOSPHATASE 50 U/L (46-116); ALT/SGPT 92 U/L (7.0-40); AST/SGOT 85 U/L (<34); BILIRUBIN,TOTAL 0.6 MG/DL (0.3-1.2); BLOOD UREA NITROGEN 15 MG/DL (9-23); CARBON DIOXIDE LEVEL 28 MMOL/L (20-31); CHLORIDE LEVEL 104 MMOL/L (98-107); CREATININE FOR GFR 1.02 MG/DL (0.70-1.30); GLOMERULAR FILTRATION RATE > 60.0 (>56); GLUCOSE, FASTING 109 MG/DL (60-100); POTASSIUM SERUM 4.2 MMOL/L (3.5-5.1); SODIUM LEVEL 136 MMOL/L (136-145)
[2022-04-29] MEDS: busPIRone 5 MG TAB PO SCH ×2 (09:14→20:53)
[2022-04-29] MEDS: PANTOPRAZOLE 40MG VIAL IV SCH (09:14)
[2022-04-29] MEDS: SPIRONOLACTONE 50 MG TAB PO SCH (09:14)
[2022-04-29] MEDS: amLODIPine 5 MG TAB PO SCH (09:15)
[2022-04-29] MEDS: CARVedilol 12.5 MG TAB PO SCH ×2 (09:15→20:55)
[2022-04-29] MEDS: ENTRESTO 24-26MG TABLET (SACUBITRIL/VALSARTAN) PO SCH ×2 (09:16→20:53)
[2022-04-29] MEDS ORDERED: fentaNYL 100 MCG/2 ML INJECTION As Ordered ONE (14:44)
[2022-04-29] MEDS ORDERED: LIDOCAINE 2% 100MG/5ML SDV (FOR ANES.) As Ordered ONE (14:44)
[2022-04-29] MEDS ORDERED: propofoL 200 MG/20 ML VIAL As Ordered ONE (14:44)
[2022-04-29] MEDS ORDERED: ONDANSETRON 4MG ORAL DISINTEGRATING TAB PO PRN (15:45)
[2022-04-29] MEDS: SUCRALFATE 1 GM TAB PO SCH ×2 (17:47→20:53)
[2022-04-29 20:58] VITALS: BP 160/92
[2022-04-30] MEDS: PERCOCET 5MG/325MG TAB PO PRN ×3 (04:58→21:10)
[2022-04-30 06:39] LABS: HEMATOCRIT 36.6 % (42.0-52.0); HEMOGLOBIN 11.5 g/dl (13.5-17.5); MEAN CORPUSCULAR HEMOGLOBIN 29.1 pg (27.0-33.0); MEAN CORPUSCULAR HGB CONC 31.4 g/dl (32.0-36.5); MEAN CORPUSCULAR VOLUME 92.7 fl (80.0-96.0); PLATELET COUNT, AUTOMATED 147 10^3/uL (150-450); RED BLOOD COUNT 3.95 10^6/uL (4.30-6.10); WHITE BLOOD COUNT 5.5 10^3/uL (4.0-10.0)
[2022-04-30 06:53] VITALS: BP 159/87
[2022-04-30 07:01] LABS: ALBUMIN 3.5 G/DL (3.2-5.2); ALKALINE PHOSPHATASE 50 U/L (46-116); ALT/SGPT 92 U/L (7.0-40); AST/SGOT 71 U/L (<34); BILIRUBIN,TOTAL 0.6 MG/DL (0.3-1.2); BLOOD UREA NITROGEN 11 MG/DL (9-23); CALCIUM LEVEL 7.9 MG/DL (8.5-10.1); CARBON DIOXIDE LEVEL 27 MMOL/L (20-31); CHLORIDE LEVEL 107 MMOL/L (98-107); CREATININE FOR GFR 0.98 MG/DL (0.70-1.30); GLOMERULAR FILTRATION RATE > 60.0 (>56); GLUCOSE, FASTING 111 MG/DL (60-100); POTASSIUM SERUM 4.3 MMOL/L (3.5-5.1); SODIUM LEVEL 139 MMOL/L (136-145); TOTAL PROTEIN 5.8 G/DL (5.7-8.2)
[2022-04-30] MEDS ORDERED: SUCR1TA PO (07:35)
[2022-04-30] MEDS: PANTOPRAZOLE 40MG TAB (PROTONIX) PO SCH (08:05)
[2022-04-30] MEDS: CARVedilol 12.5 MG TAB PO SCH ×2 (08:05→21:09)
[2022-04-30] MEDS: busPIRone 5 MG TAB PO SCH ×2 (08:05→21:09)
[2022-04-30] MEDS: ENTRESTO 24-26MG TABLET (SACUBITRIL/VALSARTAN) PO SCH ×2 (08:05→21:08)
[2022-04-30] MEDS: SPIRONOLACTONE 50 MG TAB PO SCH (08:05)
[2022-04-30] MEDS: amLODIPine 5 MG TAB PO SCH (08:05)
[2022-04-30] MEDS: SUCRALFATE 1 GM TAB PO SCH ×4 (08:05→21:09)
[2022-04-30 14:00] VITALS: BP 140/87
[2022-04-30 17:15] LABS: CLOSTRIDIUM DIFFICILE PCR POSITIVE (NEGATIVE)
[2022-04-30 18:49] LABS: C REACTIVE PROTEIN QUANTITATIV < 0.40 MG/DL (<1.0)
[2022-04-30 19:18] LABS: ERYTHROCYTE SEDIMENTATION RATE < 1 mm/hr (0-20)
[2022-04-30 20:42] VITALS: BP 159/68
[2022-04-30] MEDS: FIDAXOMICIN 200 MG TAB (DIFICID) PO SCH (21:08)
[2022-04-30] MEDS: LATANOPROST 0.005% OPHTH SOLN 2.5 ML OU SCH (21:09)
[2022-05-01] MEDS: PERCOCET 5MG/325MG TAB PO PRN ×3 (05:20→21:54)
[2022-05-01 05:25] VITALS: BP 151/86
[2022-05-01 06:50] LABS: HEMATOCRIT 38.4 % (42.0-52.0); HEMOGLOBIN 12.2 g/dl (13.5-17.5); MEAN CORPUSCULAR HEMOGLOBIN 29.8 pg (27.0-33.0); MEAN CORPUSCULAR HGB CONC 31.8 g/dl (32.0-36.5); MEAN CORPUSCULAR VOLUME 93.7 fl (80.0-96.0); PLATELET COUNT, AUTOMATED 159 10^3/uL (150-450)
[2022-05-01 07:22] LABS: ALBUMIN 3.6 G/DL (3.2-5.2); ALKALINE PHOSPHATASE 51 U/L (46-116); ALT/SGPT 89 U/L (7.0-40); AST/SGOT 56 U/L (<34); BILIRUBIN,TOTAL 0.4 MG/DL (0.3-1.2); BLOOD UREA NITROGEN 10 MG/DL (9-23); CALCIUM LEVEL 8.5 MG/DL (8.5-10.1); CARBON DIOXIDE LEVEL 28 MMOL/L (20-31); CHLORIDE LEVEL 105 MMOL/L (98-107); CREATININE FOR GFR 1.12 MG/DL (0.70-1.30); GLOMERULAR FILTRATION RATE > 60.0 (>56); GLUCOSE, FASTING 117 MG/DL (60-100); POTASSIUM SERUM 4.4 MMOL/L (3.5-5.1); SODIUM LEVEL 138 MMOL/L (136-145); TOTAL PROTEIN 6.4 G/DL (5.7-8.2)
[2022-05-01] MEDS: ENTRESTO 24-26MG TABLET (SACUBITRIL/VALSARTAN) PO SCH ×2 (08:55→20:14)
[2022-05-01] MEDS: PANTOPRAZOLE 40MG TAB (PROTONIX) PO SCH (08:55)
[2022-05-01] MEDS: busPIRone 5 MG TAB PO SCH ×2 (08:55→20:14)
[2022-05-01] MEDS: LACTOBACILLUS ACIDOPHILUS CAP (BACID) PO SCH ×2 (08:55→17:10)
[2022-05-01] MEDS: SUCRALFATE 1 GM TAB PO SCH ×4 (08:55→20:14)
[2022-05-01] MEDS: FIDAXOMICIN 200 MG TAB (DIFICID) PO SCH ×2 (08:55→20:14)
[2022-05-01] MEDS: CARVedilol 12.5 MG TAB PO SCH ×2 (08:56→20:57)
[2022-05-01] MEDS: amLODIPine 5 MG TAB PO SCH (08:56)
[2022-05-01] MEDS: SPIRONOLACTONE 50 MG TAB PO SCH (08:56)
[2022-05-01 14:00] VITALS: BP 146/82
[2022-05-01] MEDS ORDERED: MORPHINE 2 MG/ML 1ML VIAL IV ONE (18:40)
[2022-05-01 20:12] VITALS: BP 163/88
[2022-05-01] MEDS: LATANOPROST 0.005% OPHTH SOLN 2.5 ML OU SCH (20:14)
[2022-05-01 21:54] VITALS: BP 159/59
[2022-05-02 05:30] VITALS: BP 150/85
[2022-05-02] MEDS: PERCOCET 5MG/325MG TAB PO PRN (06:18)
[2022-05-02 06:44] LABS: HEMATOCRIT 38.4 % (42.0-52.0); HEMOGLOBIN 12.3 g/dl (13.5-17.5); MEAN CORPUSCULAR HEMOGLOBIN 29.7 pg (27.0-33.0); MEAN CORPUSCULAR VOLUME 92.8 fl (80.0-96.0); PLATELET COUNT, AUTOMATED 162 10^3/uL (150-450); RED BLOOD COUNT 4.14 10^6/uL (4.30-6.10); WHITE BLOOD COUNT 5.9 10^3/uL (4.0-10.0)
[2022-05-02 07:12] LABS: ALBUMIN 3.5 G/DL (3.2-5.2); ALKALINE PHOSPHATASE 49 U/L (46-116); ALT/SGPT 84 U/L (7.0-40); AST/SGOT 55 U/L (<34); BILIRUBIN,TOTAL 0.5 MG/DL (0.3-1.2); BLOOD UREA NITROGEN 10 MG/DL (9-23); CALCIUM LEVEL 8.5 MG/DL (8.5-10.1); CARBON DIOXIDE LEVEL 26 MMOL/L (20-31); CHLORIDE LEVEL 106 MMOL/L (98-107); CREATININE FOR GFR 1.05 MG/DL (0.70-1.30); GLOMERULAR FILTRATION RATE > 60.0 (>56); GLUCOSE, FASTING 113 MG/DL (60-100); POTASSIUM SERUM 4.2 MMOL/L (3.5-5.1); SODIUM LEVEL 141 MMOL/L (136-145)
[2022-05-02] MEDS: ENTRESTO 24-26MG TABLET (SACUBITRIL/VALSARTAN) PO SCH (08:14)
[2022-05-02] MEDS: PANTOPRAZOLE 40MG TAB (PROTONIX) PO SCH (08:14)
[2022-05-02 08:15] VITALS: BP 156/89
[2022-05-02] MEDS: busPIRone 5 MG TAB PO SCH (08:15)
[2022-05-02] MEDS: SUCRALFATE 1 GM TAB PO SCH ×2 (08:15→12:44)
[2022-05-02] MEDS: FIDAXOMICIN 200 MG TAB (DIFICID) PO SCH (08:15)
[2022-05-02] MEDS: amLODIPine 5 MG TAB PO SCH (08:15)
[2022-05-02] MEDS: SPIRONOLACTONE 50 MG TAB PO SCH (08:16)
[2022-05-02] MEDS: CARVedilol 12.5 MG TAB PO SCH (08:16)
[2022-05-02] MEDS: LACTOBACILLUS ACIDOPHILUS CAP (BACID) PO SCH (08:16)
[2022-05-02] MEDS ORDERED: RISATAB3 PO (12:25)
[2022-05-02] MEDS ORDERED: FIDA200TA PO (12:25)
[2022-05-02] MEDS ORDERED: VANC250C3 PO (13:29)
== END 2022-05-02 13:47 | disposition home or self-care (01) | DRG 392 ==
LOC: M ED 17:46 → M ED INP 17:47 → INTOOBSV 18:43 → OBSVTOIN 18:43 → ENRESERV 04-28 15:28 → M MSPAV 04-28 16:27 → OBSVTOIN 04-29 18:43
PROVIDERS: ADMIT Internal Medicine; ATTEND Internal Medicine
PROC: 0DB48ZX Excision of Esophagogastric Junction, Via Natural or Artificial Opening Endoscopic, Diagnostic (ICD-10-PCS; 2022-04-29)
PROC: 0DB68ZZ Excision of Stomach, Via Natural or Artificial Opening Endoscopic (ICD-10-PCS; principal; 2022-04-29 14:30)
DX: K21.00 Gastro-esophageal reflux disease with esophagitis, without bleeding (principal); F11.20 Opioid dependence, uncomplicated; Z68.41 Body mass index [BMI] 40.0-44.9, adult; A04.72 Enterocolitis due to Clostridium difficile, not specified as recurrent; K92.1 Melena; K29.70 Gastritis, unspecified, without bleeding; M79.89 Other specified soft tissue disorders; R74.01 Elevation of levels of liver transaminase levels; I10 Essential (primary) hypertension; E66.9 Obesity, unspecified; F41.9 Anxiety disorder, unspecified; K44.9 Diaphragmatic hernia without obstruction or gangrene; R13.14 Dysphagia, pharyngoesophageal phase

== ENCOUNTER → 2022-05-08 | Outpatient (CLI) | payer MEDICARE ==
[~2022-05-08] MED LIST changes: +AMLO1TAB24; +AMLO1TAB24 PO; +BACI1TAB4 PO; +BUSP5TA; +BUSP5TA PO; +ENTR1TAB; +ENTR1TAB PO; +FIDA200TA PO; +FURO80TA2; +FURO80TA2 PO; +LOPE2TAB12 PO; +OXYC10TA3 PO; +PEPT262S PO; +RISATAB3 PO; +SIME180C25 PO; +SUCR1TA PO; +VANC250C3 PO
== END ==
LOC: M TMPAIN 10:00 → M PAIN 10:00
PROVIDERS: ATTEND Anesthesiology
DX: M96.1 Postlaminectomy syndrome, not elsewhere classified (principal); M54.50 Low back pain, unspecified; G89.29 Other chronic pain; I10 Essential (primary) hypertension; G47.30 Sleep apnea, unspecified; Z86.59 Personal history of other mental and behavioral disorders; Z88.0 Allergy status to penicillin; Z88.8 Allergy status to other drugs, medicaments and biological substances; Z79.899 Other long term (current) drug therapy

== ENCOUNTER 2022-05-10 19:55 | Emergency (ER) | payer MEDICARE ==
[~2022-05-10] VITALS: Ht 175.3 cm; Wt 126.8 kg
[~2022-05-10 19:55] MED LIST changes: -SIME180C25 PO
[2022-05-10] MEDS ORDERED: ONDANSETRON 4MG ORAL DISINTEGRATING TAB PO ONE (20:40)
[2022-05-10 23:25] LABS: BASO # 0.1 10^3/uL (0.0-0.2); BASO % 0.6 % (0.0-1.0); EOS # 0.2 10^3/uL (0.0-0.5); EOS % 2.3 % (0.0-3.0); HEMATOCRIT 40.7 % (42.0-52.0); HEMOGLOBIN 13.2 g/dl (13.5-17.5); LYMPH # 2.1 10^3/uL (1.5-5.0); LYMPH % 26.8 % (24.0-44.0); MEAN CORPUSCULAR HEMOGLOBIN 29.3 pg (27.0-33.0); MEAN CORPUSCULAR HGB CONC 32.4 g/dl (32.0-36.5); MEAN CORPUSCULAR VOLUME 90.2 fl (80.0-96.0); MONO # 0.9 10^3/uL (0.0-0.8); MONO % 11.3 % (2.0-8.0); NEUTROPHILS # 4.5 10^3/uL (1.5-8.5); NEUTROPHILS % 58.6 % (36.0-66.0); PLATELET COUNT, AUTOMATED 201 10^3/uL (150-450); RED BLOOD COUNT 4.51 10^6/uL (4.30-6.10); WHITE BLOOD COUNT 7.7 10^3/uL (4.0-10.0)
[2022-05-10 23:48] LABS: ALKALINE PHOSPHATASE 59 U/L (46-116); ALT/SGPT 64 U/L (7.0-40); AST/SGOT 47 U/L (<34); BILIRUBIN,TOTAL 0.4 MG/DL (0.3-1.2); BLOOD UREA NITROGEN 18 MG/DL (9-23); CALCIUM LEVEL 9.4 MG/DL (8.5-10.1); CARBON DIOXIDE LEVEL 27 MMOL/L (20-31); CHLORIDE LEVEL 103 MMOL/L (98-107); CREATININE FOR GFR 0.93 MG/DL (0.70-1.30); GLOMERULAR FILTRATION RATE > 60.0 (>56); GLUCOSE, FASTING 100 MG/DL (60-100); POTASSIUM SERUM 4.4 MMOL/L (3.5-5.1); SODIUM LEVEL 137 MMOL/L (136-145); TOTAL PROTEIN 6.6 G/DL (5.7-8.2)
[2022-05-10 23:49] LABS: CK-MB VALUE MASS 1.6 NG/ML (<3.6)
[2022-05-10 23:52] LABS: THYROID STIMULATING HORMONE 2.391 uIU/ML (0.55-4.78)
[2022-05-11 00:14] LABS: MB/CK RELATIVE INDEX 0.46 (< OR =4)
[2022-05-11] MEDS ORDERED: FUROSEMIDE 100MG/10ML VIAL IV ONE (00:25)
[2022-05-11] MEDS ORDERED: ISOVUE-370 76% 100ML VIAL As Ordered ONE (00:35)
[2022-05-11] MEDS ORDERED: SIMETHICONE 80MG CHEW TAB PO ONE (01:40)
[2022-05-11] MEDS ORDERED: SIME180C25 PO (01:58)
[2022-05-11 02:26] VITALS: BP 150/78
== END 2022-05-11 02:27 | disposition home or self-care (01) ==
LOC: M ED 19:55
DX: R10.9 Unspecified abdominal pain (principal); R63.0 Anorexia; E73.9 Lactose intolerance, unspecified; R16.0 Hepatomegaly, not elsewhere classified; I11.0 Hypertensive heart disease with heart failure; I50.9 Heart failure, unspecified; F32.A Depression, unspecified; Z88.0 Allergy status to penicillin; Z88.8 Allergy status to other drugs, medicaments and biological substances; Z79.899 Other long term (current) drug therapy
CPT/HCPCS: 71045; 74177; 80053; 82550; 82553; 83880; 84443; 84484; 85025; 87040; 93005; 93041; 94760; 96374; 99284; J1940; Q9967

== ENCOUNTER → 2022-06-05 | Outpatient (CLI) | payer MEDICARE ==
[~2022-06-05] MED LIST changes: +SIME180C25 PO
[2022-06-05 10:04] LABS: BASO # 0.1 10^3/uL (0.0-0.2); BASO % 0.6 % (0.0-1.0); EOS # 0.1 10^3/uL (0.0-0.5); EOS % 0.8 % (0.0-3.0); HEMATOCRIT 42.4 % (42.0-52.0); HEMOGLOBIN 13.7 g/dl (13.5-17.5); LYMPH # 1.3 10^3/uL (1.5-5.0); LYMPH % 14.8 % (24.0-44.0); MEAN CORPUSCULAR HGB CONC 32.3 g/dl (32.0-36.5); MEAN CORPUSCULAR VOLUME 89.8 fl (80.0-96.0); MONO # 0.9 10^3/uL (0.0-0.8); MONO % 9.6 % (2.0-8.0); NEUTROPHILS # 6.5 10^3/uL (1.5-8.5); NEUTROPHILS % 73.5 % (36.0-66.0); PLATELET COUNT, AUTOMATED 200 10^3/uL (150-450); RED BLOOD COUNT 4.72 10^6/uL (4.30-6.10); WHITE BLOOD COUNT 8.9 10^3/uL (4.0-10.0)
[2022-06-05 10:24] LABS: ALBUMIN 4.1 G/DL (3.2-5.2); ALKALINE PHOSPHATASE 57 U/L (46-116); ALT/SGPT 97 U/L (7.0-40); AST/SGOT 55 U/L (<34); BILIRUBIN,DIRECT 0.2 MG/DL (<0.4); BILIRUBIN,TOTAL 0.6 MG/DL (0.3-1.2); BLOOD UREA NITROGEN 13 MG/DL (9-23); CREATININE FOR GFR 0.91 MG/DL (0.70-1.30); GLOMERULAR FILTRATION RATE > 60.0 (>56); TOTAL PROTEIN 6.9 G/DL (5.7-8.2)
[2022-06-05 14:57] LABS: CLOSTRIDIUM DIFFICILE PCR POSITIVE (NEGATIVE)
== END ==
LOC: M LAB 09:12
PROVIDERS: ATTEND Internal Medicine Gastroenterology
DX: R19.7 Diarrhea, unspecified (principal)

== ENCOUNTER → 2022-06-08 | Outpatient (CLI) | payer MEDICARE | LOC: M PAIN 13:45 | PROVIDERS: ATTEND Nurse Practitioner Family | DX: M96.1 Postlaminectomy syndrome, not elsewhere classified (principal); M51.16 Intervertebral disc disorders with radiculopathy, lumbar region; G89.29 Other chronic pain; I10 Essential (primary) hypertension; G47.30 Sleep apnea, unspecified; Z86.59 Personal history of other mental and behavioral disorders; Z88.0 Allergy status to penicillin; Z88.8 Allergy status to other drugs, medicaments and biological substances; E66.01 Morbid (severe) obesity due to excess calories; Z68.41 Body mass index [BMI] 40.0-44.9, adult; Z79.899 Other long term (current) drug therapy ==

== ENCOUNTER → 2022-06-08 | Outpatient (CLI) | payer MEDICARE ==
[2022-06-08 12:09] LABS: HEMATOCRIT 37.6 % (42.0-52.0); HEMOGLOBIN 12.2 g/dl (13.5-17.5)
== END ==
LOC: M LAB 11:36
PROVIDERS: ATTEND Nurse Practitioner Family
DX: E29.1 Testicular hypofunction (principal)

== ENCOUNTER → 2022-08-05 | Outpatient (CLI) | payer MEDICARE ==
[2022-08-05 09:18] LABS: BASO % 0.6 % (0.0-1.0); EOS # 0.1 10^3/uL (0.0-0.5); HEMATOCRIT 40.3 % (42.0-52.0); HEMOGLOBIN 13.1 g/dl (13.5-17.5); LYMPH # 1.1 10^3/uL (1.5-5.0); LYMPH % 15.6 % (24.0-44.0); MEAN CORPUSCULAR HEMOGLOBIN 27.8 pg (27.0-33.0); MEAN CORPUSCULAR HGB CONC 32.5 g/dl (32.0-36.5); MEAN CORPUSCULAR VOLUME 85.6 fl (80.0-96.0); MONO # 0.8 10^3/uL (0.0-0.8); MONO % 10.8 % (2.0-8.0); NEUTROPHILS # 5.1 10^3/uL (1.5-8.5); NEUTROPHILS % 71.4 % (36.0-66.0); PLATELET COUNT, AUTOMATED 193 10^3/uL (150-450); RED BLOOD COUNT 4.71 10^6/uL (4.30-6.10); WHITE BLOOD COUNT 7.1 10^3/uL (4.0-10.0)
[2022-08-05 09:41] LABS: ALKALINE PHOSPHATASE 61 U/L (46-116); ALT/SGPT 88 U/L (7.0-40); AST/SGOT 53 U/L (<34); BILIRUBIN,TOTAL 1.1 MG/DL (0.3-1.2); BLOOD UREA NITROGEN 18 MG/DL (9-23); CALCIUM LEVEL 9.3 MG/DL (8.5-10.1); CARBON DIOXIDE LEVEL 29 MMOL/L (20-31); CHLORIDE LEVEL 104 MMOL/L (98-107); CHOLESTEROL LEVEL 175 MG/DL (<200); CHOLESTEROL RISK RATIO 3.81 (<5); CREATININE FOR GFR 1.03 MG/DL (0.70-1.30); GLOMERULAR FILTRATION RATE > 60.0 (>56); GLUCOSE, FASTING 115 MG/DL (60-100); HDL CHOLESTEROL 45.9 MG/DL (>40); NON-HDL-C 129.1 MG/DL; POTASSIUM SERUM 4.1 MMOL/L (3.5-5.1); SODIUM LEVEL 139 MMOL/L (136-145); TRIGLYCERIDES LEVEL 415 MG/DL (<150)
[2022-08-05 09:44] LABS: HEMOGLOBIN A1c 5.6 % (4.0-6.0)
== END ==
LOC: M LAB 08:19
PROVIDERS: ATTEND Nurse Practitioner Family
DX: R73.03 Prediabetes (principal); I10 Essential (primary) hypertension

== ENCOUNTER → 2022-08-11 | Outpatient (CLI) | payer MEDICARE ==
[2022-08-11 12:56] LABS: PLATELET COUNT, AUTOMATED 187 10^3/uL (150-450)
[2022-08-11 13:25] LABS: ALBUMIN 3.9 G/DL (3.2-5.2); ALKALINE PHOSPHATASE 58 U/L (46-116); ALT/SGPT 72 U/L (7.0-40); AST/SGOT 50 U/L (<34); BILIRUBIN,DIRECT 0.2 MG/DL (<0.4); BILIRUBIN,TOTAL 0.8 MG/DL (0.3-1.2); IRON (FE) 98 UG/DL (65-175); PERCENT SATURATION 23.2 % (19.7-50.0); TOTAL IRON BINDING CAPACITY 423 UG/DL (250-425); TOTAL PROTEIN 6.7 G/DL (5.7-8.2)
[2022-08-11 13:27] LABS: HEPATITIS B SURFACE ANTIBODY NEGATIVE (POSITIVE)
[2022-08-11 13:28] LABS: FERRITIN 20.3 NG/ML (10.5-307.3)
[2022-08-11 13:59] LABS: HEPATITIS C VIRUS ABY INDEX < 0.0 INDEX (<0.8)
== END ==
LOC: M LAB 10:37
PROVIDERS: ATTEND Internal Medicine Gastroenterology
DX: R19.7 Diarrhea, unspecified (principal)

== ENCOUNTER → 2022-09-02 | Outpatient (CLI) | payer MEDICARE ==
[~2022-09-02] MED LIST changes: +CEFUROXIME 1MG/0.1ML INTRACAMERAL INJ As Ordered ONE
== END ==
LOC: M RAD 08:24
PROVIDERS: ATTEND Internal Medicine Gastroenterology
DX: R94.5 Abnormal results of liver function studies (principal)
CPT/HCPCS: 76705; J0697

== ENCOUNTER → 2022-10-14 | Outpatient (CLI) | payer MEDICARE ==
[~2022-10-14] MED LIST changes: -CEFUROXIME 1MG/0.1ML INTRACAMERAL INJ As Ordered ONE
[2022-10-14 11:42] LABS: HEMATOCRIT 37.4 % (42.0-52.0)
== END ==
LOC: M LAB 11:21
PROVIDERS: ATTEND Nurse Practitioner Family
DX: E29.1 Testicular hypofunction (principal)
CPT/HCPCS: 36415; 84403; 85014; 85018; G0103

== ENCOUNTER → 2022-10-26 | Outpatient (CLI) | payer MEDICARE | LOC: M PAIN 11:30 | PROVIDERS: ATTEND Nurse Practitioner Family | DX: M51.16 Intervertebral disc disorders with radiculopathy, lumbar region (principal); Z79.891 Long term (current) use of opiate analgesic; G89.29 Other chronic pain; I10 Essential (primary) hypertension; K22.70 Barrett's esophagus without dysplasia; G47.30 Sleep apnea, unspecified; F41.9 Anxiety disorder, unspecified; M15.9 Polyosteoarthritis, unspecified; K58.9 Irritable bowel syndrome, unspecified; K76.0 Fatty (change of) liver, not elsewhere classified; Z79.899 Other long term (current) drug therapy; Z88.0 Allergy status to penicillin; Z88.8 Allergy status to other drugs, medicaments and biological substances ==

== ENCOUNTER → 2022-12-22 | Outpatient (CLI) | payer MEDICARE ==
[~2022-12-22] MED LIST changes: +ISOVUE-M 300 61% 15ML VIAL As Ordered ONE; +LIDOCAINE 1% SDV 30ML VIAL As Ordered ONE; +MECL-209 PO; -MECL1TAB31 PO; +dexAMETHasone 10MG/1ML VIAL PRES.FREE As Ordered ONE; +diazePAM 5MG TABLET As Ordered ONE; +oxyCODONE 5MG TAB As Ordered ONE
== END ==
LOC: M PAIN 14:00
PROVIDERS: ATTEND Anesthesiology
DX: M51.16 Intervertebral disc disorders with radiculopathy, lumbar region (principal); G89.29 Other chronic pain; G47.30 Sleep apnea, unspecified; I10 Essential (primary) hypertension; Z86.14 Personal history of Methicillin resistant Staphylococcus aureus infection; Z86.59 Personal history of other mental and behavioral disorders; Z88.0 Allergy status to penicillin; Z88.8 Allergy status to other drugs, medicaments and biological substances; E66.01 Morbid (severe) obesity due to excess calories; Z68.41 Body mass index [BMI] 40.0-44.9, adult; Z79.899 Other long term (current) drug therapy
CPT/HCPCS: 64483; 64484; J0665; J1100; Q9967

== ENCOUNTER → 2023-02-04 | Outpatient (CLI) | payer MEDICARE ==
[~2023-02-04] MED LIST changes: -ISOVUE-M 300 61% 15ML VIAL As Ordered ONE; -LIDOCAINE 1% SDV 30ML VIAL As Ordered ONE; -dexAMETHasone 10MG/1ML VIAL PRES.FREE As Ordered ONE; -diazePAM 5MG TABLET As Ordered ONE; -oxyCODONE 5MG TAB As Ordered ONE
== END ==
LOC: M PAIN 11:15
PROVIDERS: ATTEND Nurse Practitioner Family
DX: M50.10 Cervical disc disorder with radiculopathy, unspecified cervical region (principal); G89.29 Other chronic pain; M51.16 Intervertebral disc disorders with radiculopathy, lumbar region; Z86.14 Personal history of Methicillin resistant Staphylococcus aureus infection; Z80.42 Family history of malignant neoplasm of prostate; Z88.0 Allergy status to penicillin; Z88.8 Allergy status to other drugs, medicaments and biological substances; E66.01 Morbid (severe) obesity due to excess calories; Z68.41 Body mass index [BMI] 40.0-44.9, adult; Z79.899 Other long term (current) drug therapy

== ENCOUNTER → 2023-03-23 | Outpatient (CLI) | payer MEDICARE ==
[2023-03-23 12:26] LABS: APPEARANCE, URINE CLEAR (CLEAR); BACTERIA, URINE AUTO NEGATIVE (NEGATIVE); BILIRUBIN, URINE AUTO NEGATIVE (NEGATIVE); BLOOD, URINE BLOOD NEGATIVE (NEGATIVE); COLOR, URINE YELLOW (YELLOW); GLUCOSE, URINE (UA) AUTO NEGATIVE (NEGATIVE); KETONE, URINE AUTO NEGATIVE (NEGATIVE); LEUKOCYTE ESTERASE, URINE AUTO NEGATIVE (NEGATIVE); NITRITE, URINE AUTO NEGATIVE (NEGATIVE); PROTEIN, URINE AUTO NEGATIVE (NEGATIVE); RBC, URINE AUTO 0 /HPF (0-3); SQUAMOUS EPITHELIAL CELL UR AU 0 /HPF (0-6); UROBILINOGEN, URINE AUTO 0.2 mg/dL (0.0-2.0); WBC, URINE AUTO 0 /HPF (0-3)
[2023-03-23 12:31] LABS: BASO % 0.4 % (0.0-1.0); EOS # 0.2 10^3/uL (0.0-0.5); EOS % 1.9 % (0.0-3.0); HEMATOCRIT 30.6 % (42.0-52.0); HEMOGLOBIN 9.2 g/dl (13.5-17.5); LYMPH # 1.2 10^3/uL (1.5-5.0); LYMPH % 14.5 % (24.0-44.0); MEAN CORPUSCULAR HEMOGLOBIN 24.5 pg (27.0-33.0); MEAN CORPUSCULAR HGB CONC 30.1 g/dl (32.0-36.5); MEAN CORPUSCULAR VOLUME 81.6 fl (80.0-96.0); MONO # 0.9 10^3/uL (0.0-0.8); MONO % 10.8 % (2.0-8.0); NEUTROPHILS # 5.7 10^3/uL (1.5-8.5); NEUTROPHILS % 71.5 % (36.0-66.0); PLATELET COUNT, AUTOMATED 240 10^3/uL (150-450); RED BLOOD COUNT 3.75 10^6/uL (4.30-6.10)
[2023-03-23 12:51] LABS: SODIUM,RANDOM URINE 89 MMOL/L
[2023-03-23 12:53] LABS: INR 1.14; PARTIAL THROMBOPLASTIN TIME 26.1 SECONDS (24.8-34.2); PROTHROMBIN TIME 14.2 SECONDS (12.5-14.5)
[2023-03-23 13:01] LABS: IRON (FE) 24 UG/DL (65-175)
[2023-03-23 13:01] LABS: CREATININE,RANDOM URINE 182.6 MG/DL
[2023-03-23 13:02] LABS: ALBUMIN 3.5 G/DL (3.2-5.2); ALKALINE PHOSPHATASE 38 U/L (46-116); ALT/SGPT 100 U/L (7.0-40); AST/SGOT 77 U/L (<34); BILIRUBIN,DIRECT 0.1 MG/DL (<0.4); BILIRUBIN,TOTAL 0.4 MG/DL (0.3-1.2); BLOOD UREA NITROGEN 14 MG/DL (9-23); CALCIUM LEVEL 9.3 MG/DL (8.5-10.1); CARBON DIOXIDE LEVEL 30 MMOL/L (20-31); CHLORIDE LEVEL 105 MMOL/L (98-107); CREATININE FOR GFR 1.04 MG/DL (0.70-1.30); GLOMERULAR FILTRATION RATE > 60.0 (>56); GLUCOSE, FASTING 111 MG/DL (60-100); PERCENT SATURATION 5.9 % (19.7-50.0); POTASSIUM SERUM 4.6 MMOL/L (3.5-5.1); SODIUM LEVEL 140 MMOL/L (136-145); TOTAL IRON BINDING CAPACITY 407 UG/DL (250-425)
[2023-03-23 13:03] LABS: FERRITIN 12.5 NG/ML (10.5-307.3); FOLATE 10.7 NG/ML (>5.4); VITAMIN B12 LEVEL 360 PG/ML (211-911)
== END ==
LOC: M LAB 10:01
PROVIDERS: ATTEND Internal Medicine Gastroenterology
DX: R94.5 Abnormal results of liver function studies (principal); Z79.899 Other long term (current) drug therapy; I10 Essential (primary) hypertension; D62 Acute posthemorrhagic anemia; R14.0 Abdominal distension (gaseous); K57.30 Diverticulosis of large intestine without perforation or abscess without bleeding

== ENCOUNTER → 2023-03-26 | Outpatient (CLI) | payer MEDICARE | LOC: M RAD 09:53 | PROVIDERS: ATTEND Internal Medicine Gastroenterology | DX: R94.5 Abnormal results of liver function studies (principal); R16.2 Hepatomegaly with splenomegaly, not elsewhere classified ==

== ENCOUNTER → 2023-04-09 | Outpatient (CLI) | payer MEDICARE ==
[~2023-04-09] MED LIST changes: +ISOVUE-M 300 61% 15ML VIAL As Ordered ONE; +LIDOCAINE 1% SDV 30ML VIAL As Ordered ONE; +diazePAM 5MG TABLET As Ordered ONE; +methylPREDNISolone SUSP 40MG/ML 1ML VIAL (DEPO MEDROL) As Ordered ONE; +oxyCODONE 5MG TAB As Ordered ONE
== END ==
LOC: M PAIN 08:30
PROVIDERS: ATTEND Anesthesiology
DX: M50.13 Cervical disc disorder with radiculopathy, cervicothoracic region (principal); I10 Essential (primary) hypertension; K22.70 Barrett's esophagus without dysplasia; F41.9 Anxiety disorder, unspecified; K58.9 Irritable bowel syndrome, unspecified; Z79.891 Long term (current) use of opiate analgesic; Z79.899 Other long term (current) drug therapy; Z88.0 Allergy status to penicillin; Z88.8 Allergy status to other drugs, medicaments and biological substances
CPT/HCPCS: 62321; J1030; Q9967

== ENCOUNTER → 2023-04-12 | Outpatient (CLI) | payer MEDICARE ==
[~2023-04-12] MED LIST changes: -ISOVUE-M 300 61% 15ML VIAL As Ordered ONE; -LIDOCAINE 1% SDV 30ML VIAL As Ordered ONE; -diazePAM 5MG TABLET As Ordered ONE; -methylPREDNISolone SUSP 40MG/ML 1ML VIAL (DEPO MEDROL) As Ordered ONE; -oxyCODONE 5MG TAB As Ordered ONE
[2023-04-12 11:51] LABS: HEMATOCRIT 30.8 % (42.0-52.0); HEMOGLOBIN 9.3 g/dl (13.5-17.5)
== END ==
LOC: M LAB 11:18
PROVIDERS: ATTEND Nurse Practitioner Family
DX: E29.1 Testicular hypofunction (principal)

== ENCOUNTER → 2023-04-20 | Outpatient (CLI) | payer MEDICARE ==
[2023-04-20 09:56] LABS: BLOOD UREA NITROGEN 13 MG/DL (9-23); CALCIUM LEVEL 8.9 MG/DL (8.5-10.1); CARBON DIOXIDE LEVEL 30 MMOL/L (20-31); CHLORIDE LEVEL 107 MMOL/L (98-107); CREATININE FOR GFR 0.98 MG/DL (0.70-1.30); GLOMERULAR FILTRATION RATE > 60.0 (>56); GLUCOSE, FASTING 115 MG/DL (60-100); POTASSIUM SERUM 4.2 MMOL/L (3.5-5.1); SODIUM LEVEL 140 MMOL/L (136-145)
== END ==
LOC: M LAB 08:55
PROVIDERS: ATTEND Internal Medicine Gastroenterology
DX: K70.31 Alcoholic cirrhosis of liver with ascites (principal)

== ENCOUNTER 2023-05-07 18:52 | Inpatient (IN) | payer MEDICARE ==
[~2023-05-07] VITALS: Ht 175.3 cm; Wt 135.7 kg
[2023-05-07] MEDS ORDERED: PANTOPRAZOLE 40MG VIAL IV ONE (19:50)
[2023-05-07] MEDS ORDERED: SUCRALFATE SUSP 1GM/10ML UD PO ONE (19:50)
[2023-05-07 20:15] LABS: BASO % 0.5 % (0.0-1.0); EOS # 0.1 10^3/uL (0.0-0.5); EOS % 2.1 % (0.0-3.0); HEMATOCRIT 29.9 % (42.0-52.0); LYMPH # 1.4 10^3/uL (1.5-5.0); LYMPH % 20.7 % (24.0-44.0); MEAN CORPUSCULAR HEMOGLOBIN 22.7 pg (27.0-33.0); MEAN CORPUSCULAR HGB CONC 30.1 g/dl (32.0-36.5); MEAN CORPUSCULAR VOLUME 75.3 fl (80.0-96.0); MONO # 0.7 10^3/uL (0.0-0.8); NEUTROPHILS # 4.3 10^3/uL (1.5-8.5); NEUTROPHILS % 65.1 % (36.0-66.0); PLATELET COUNT, AUTOMATED 172 10^3/uL (150-450); RED BLOOD COUNT 3.97 10^6/uL (4.30-6.10); WHITE BLOOD COUNT 6.6 10^3/uL (4.0-10.0)
[2023-05-07 20:26] LABS: INR 1.13; PROTHROMBIN TIME 14.2 SECONDS (12.5-14.5)
[2023-05-07 20:27] LABS: PARTIAL THROMBOPLASTIN TIME 28.4 SECONDS (24.8-34.2)
[2023-05-07 20:38] LABS: CK-MB VALUE MASS < 1.0 NG/ML (<3.6); LIPASE 39 U/L (12-53)
[2023-05-07 20:39] LABS: CPK CREATINE PHOSPHOKINASE 200 U/L (46-171)
[2023-05-07 20:40] LABS: ALBUMIN 3.7 G/DL (3.2-5.2); ALKALINE PHOSPHATASE 36 U/L (46-116); ALT/SGPT 59 U/L (7.0-40); AST/SGOT 61 U/L (<34); BILIRUBIN,DIRECT 0.2 MG/DL (<0.4); BILIRUBIN,TOTAL 0.5 MG/DL (0.3-1.2); BLOOD UREA NITROGEN 16 MG/DL (9-23); CALCIUM LEVEL 8.4 MG/DL (8.5-10.1); CARBON DIOXIDE LEVEL 27 MMOL/L (20-31); CHLORIDE LEVEL 105 MMOL/L (98-107); CREATININE FOR GFR 1.06 MG/DL (0.70-1.30); GLOMERULAR FILTRATION RATE > 60.0 (>56); GLUCOSE, FASTING 98 MG/DL (60-100); POTASSIUM SERUM 3.7 MMOL/L (3.5-5.1); SODIUM LEVEL 139 MMOL/L (136-145); TOTAL PROTEIN 6.5 G/DL (5.7-8.2)
[2023-05-07 20:45] LABS: RSV AMPLIFICATION NEGATIVE (NEGATIVE)
[2023-05-07] MEDS ORDERED: PERCOCET 5MG/325MG TAB PO ONE (21:50)
[2023-05-07 22:03] LABS: HEMATOCRIT 28.7 % (42.0-52.0); HEMOGLOBIN 8.5 g/dl (13.5-17.5); MEAN CORPUSCULAR HEMOGLOBIN 22.3 pg (27.0-33.0); MEAN CORPUSCULAR HGB CONC 29.6 g/dl (32.0-36.5); MEAN CORPUSCULAR VOLUME 75.1 fl (80.0-96.0); PLATELET COUNT, AUTOMATED 161 10^3/uL (150-450); RED BLOOD COUNT 3.82 10^6/uL (4.30-6.10); WHITE BLOOD COUNT 6.3 10^3/uL (4.0-10.0)
[2023-05-07 22:21] LABS: CK-MB VALUE MASS < 1.0 NG/ML (<3.6); CPK CREATINE PHOSPHOKINASE 176 U/L (46-171); MB/CK RELATIVE INDEX 0.56 (< OR =4)
[2023-05-07] MEDS ORDERED: MOM 30ML SUSPENSION UDC PO PRN (23:20)
[2023-05-07] MEDS ORDERED: FURO40TA2 PO (23:21)
[2023-05-07] MEDS ORDERED: HOME MED LIST COMPLETE! XX SCH (23:25)
[2023-05-08] VITALS (12 sets, daily range): BP systolic 114–156; BP diastolic 60–78; TEMP 96.8–97.8; O2SAT 95–98
[2023-05-08] MEDS: oxyCODONE 5MG TAB PO PRN ×2 (02:59→10:39)
[2023-05-08] MEDS: LR 1,000 ML IV SCH ×2 (04:58→06:35)
[2023-05-08 05:16] LABS: HEMATOCRIT 30.1 % (42.0-52.0); HEMOGLOBIN 9.1 g/dl (13.5-17.5); MEAN CORPUSCULAR HGB CONC 30.2 g/dl (32.0-36.5); PLATELET COUNT, AUTOMATED 166 10^3/uL (150-450); RED BLOOD COUNT 3.96 10^6/uL (4.30-6.10); WHITE BLOOD COUNT 5.1 10^3/uL (4.0-10.0)
[2023-05-08 05:49] LABS: ALBUMIN 3.7 G/DL (3.2-5.2); ALKALINE PHOSPHATASE 34 U/L (46-116); ALT/SGPT 62 U/L (7.0-40); AST/SGOT 69 U/L (<34); BILIRUBIN,TOTAL 0.9 MG/DL (0.3-1.2); BLOOD UREA NITROGEN 15 MG/DL (9-23); CALCIUM LEVEL 8.4 MG/DL (8.5-10.1); CARBON DIOXIDE LEVEL 29 MMOL/L (20-31); CHLORIDE LEVEL 105 MMOL/L (98-107); CREATININE FOR GFR 1.06 MG/DL (0.70-1.30); GLOMERULAR FILTRATION RATE > 60.0 (>56); GLUCOSE, FASTING 101 MG/DL (60-100); POTASSIUM SERUM 3.7 MMOL/L (3.5-5.1); SODIUM LEVEL 139 MMOL/L (136-145); TOTAL PROTEIN 6.2 G/DL (5.7-8.2)
[2023-05-08] MEDS ORDERED: SPIRONOLACTONE 50 MG TAB PO SCH (09:00)
[2023-05-08] MEDS ORDERED: ENTRESTO 24-26MG TABLET (SACUBITRIL/VALSARTAN) PO SCH (09:00)
[2023-05-08] MEDS ORDERED: CARVedilol 12.5 MG TAB PO SCH (09:00)
[2023-05-08] MEDS ORDERED: PANTOPRAZOLE 40MG VIAL IV SCH (09:00)
[2023-05-08] MEDS ORDERED: DOCUSATE SODIUM 100MG CAPSULE PO SCH (09:00)
[2023-05-08] MEDS ORDERED: FUROSEMIDE 40 MG TAB PO SCH (09:00)
[2023-05-08] MEDS ORDERED: amLODIPine 5 MG TAB PO SCH (09:00)
[2023-05-08 11:32] LABS: IRON (FE) 43 UG/DL (65-175); PERCENT SATURATION 9.2 % (19.7-50.0); TOTAL IRON BINDING CAPACITY 468 UG/DL (250-425)
[2023-05-08 11:34] LABS: FERRITIN 19.6 NG/ML (10.5-307.3)
[2023-05-08 11:37] LABS: BASO % 0.9 % (0.0-1.0); EOS # 0.1 10^3/uL (0.0-0.5); EOS % 2.6 % (0.0-3.0); HEMATOCRIT 29.7 % (42.0-52.0); HEMOGLOBIN 9.1 g/dl (13.5-17.5); LYMPH # 1.2 10^3/uL (1.5-5.0); LYMPH % 25.2 % (24.0-44.0); MEAN CORPUSCULAR HEMOGLOBIN 22.8 pg (27.0-33.0); MEAN CORPUSCULAR HGB CONC 30.6 g/dl (32.0-36.5); MEAN CORPUSCULAR VOLUME 74.3 fl (80.0-96.0); MONO # 0.6 10^3/uL (0.0-0.8); NEUTROPHILS # 2.7 10^3/uL (1.5-8.5); NEUTROPHILS % 57.4 % (36.0-66.0); PLATELET COUNT, AUTOMATED 159 10^3/uL (150-450); WHITE BLOOD COUNT 4.7 10^3/uL (4.0-10.0)
[2023-05-08] MEDS ORDERED: FERRIC CARBOXYMALTOSE INJ 750 MG, VIAL MATE ADAPTER 1 EACH in NS 250 ML IV ONE (14:00)
[2023-05-08] MEDS ORDERED: LATANOPROST 0.005% OPHTH SOLN 2.5 ML OU SCH (21:00)
[2023-05-08] MEDS ORDERED: PRAVASTATIN 20 MG TAB PO SCH (21:00)
[2023-05-08] MEDS ORDERED: FENOFIBRATE 145MG TABLET (TRICOR) PO SCH (21:00)
[2023-05-08] MEDS ORDERED: TAMSULOSIN 0.4 MG CAP PO SCH (21:00)
== END 2023-05-08 16:53 | disposition home or self-care (01) | DRG 812 ==
LOC: M ED 18:52 → M ED INP 23:17 → ENRESERV 23:48 → M PCU 05-08 01:44
PROVIDERS: ADMIT Family Medicine; ATTEND Family Medicine
PROC: 30233N1 Transfusion of Nonautologous Red Blood Cells into Peripheral Vein, Percutaneous Approach (ICD-10-PCS; principal; 2023-05-08)
DX: D50.0 Iron deficiency anemia secondary to blood loss (chronic) (principal); K92.2 Gastrointestinal hemorrhage, unspecified; I50.32 Chronic diastolic (congestive) heart failure; I11.0 Hypertensive heart disease with heart failure; E78.5 Hyperlipidemia, unspecified; K76.0 Fatty (change of) liver, not elsewhere classified; G47.33 Obstructive sleep apnea (adult) (pediatric); K44.9 Diaphragmatic hernia without obstruction or gangrene; M54.50 Low back pain, unspecified; G89.29 Other chronic pain; F32.A Depression, unspecified; F41.9 Anxiety disorder, unspecified; M19.90 Unspecified osteoarthritis, unspecified site; L30.9 Dermatitis, unspecified; K22.70 Barrett's esophagus without dysplasia; K58.9 Irritable bowel syndrome, unspecified; Z79.899 Other long term (current) drug therapy; Z88.0 Allergy status to penicillin; Z88.8 Allergy status to other drugs, medicaments and biological substances; Z20.822 Contact with and (suspected) exposure to COVID-19

== ENCOUNTER → 2023-05-07 | Outpatient (CLI) | payer MEDICARE ==
[~2023-05-07] MED LIST changes: +FENO145T7 PO; +OXYC10TA12 PO; +TAMS1CAP17 PO
[2023-05-07 13:06] LABS: BASO % 0.5 % (0.0-1.0); EOS # 0.2 10^3/uL (0.0-0.5); EOS % 2.6 % (0.0-3.0); HEMATOCRIT 30.7 % (42.0-52.0); LYMPH # 1.7 10^3/uL (1.5-5.0); LYMPH % 28.9 % (24.0-44.0); MEAN CORPUSCULAR HEMOGLOBIN 22.3 pg (27.0-33.0); MEAN CORPUSCULAR HGB CONC 29.3 g/dl (32.0-36.5); MONO # 0.7 10^3/uL (0.0-0.8); MONO % 11.8 % (2.0-8.0); NEUTROPHILS # 3.2 10^3/uL (1.5-8.5); NEUTROPHILS % 55.5 % (36.0-66.0); PLATELET COUNT, AUTOMATED 173 10^3/uL (150-450); RED BLOOD COUNT 4.04 10^6/uL (4.30-6.10); WHITE BLOOD COUNT 5.8 10^3/uL (4.0-10.0)
[2023-05-07 13:38] LABS: PERCENT SATURATION 3.5 % (19.7-50.0)
[2023-05-07 13:41] LABS: FERRITIN 20.9 NG/ML (10.5-307.3)
== END ==
LOC: M LAB 12:41
PROVIDERS: ATTEND Registered Nurse
DX: D50.9 Iron deficiency anemia, unspecified (principal)

== ENCOUNTER → 2023-05-07 | Outpatient (CLI) | payer MEDICARE | LOC: M PAIN 09:30 | PROVIDERS: ATTEND Nurse Practitioner Family | DX: M50.13 Cervical disc disorder with radiculopathy, cervicothoracic region (principal); G89.29 Other chronic pain; I10 Essential (primary) hypertension; K22.70 Barrett's esophagus without dysplasia; G47.30 Sleep apnea, unspecified; F32.A Depression, unspecified; F41.9 Anxiety disorder, unspecified; M15.9 Polyosteoarthritis, unspecified; Z79.891 Long term (current) use of opiate analgesic; Z79.899 Other long term (current) drug therapy; Z88.0 Allergy status to penicillin; Z88.8 Allergy status to other drugs, medicaments and biological substances ==

== ENCOUNTER 2023-05-12 09:12 | Emergency (ER) | payer MEDICARE ==
[~2023-05-12] VITALS: Ht 175.3 cm; Wt 127.0 kg
[2023-05-12 10:43] LABS: BASO % 0.8 % (0.0-1.0); EOS # 0.1 10^3/uL (0.0-0.5); EOS % 1.8 % (0.0-3.0); HEMATOCRIT 34.3 % (42.0-52.0); HEMOGLOBIN 10.3 g/dl (13.5-17.5); LYMPH % 19.6 % (24.0-44.0); MEAN CORPUSCULAR HEMOGLOBIN 23.7 pg (27.0-33.0); MONO # 0.7 10^3/uL (0.0-0.8); MONO % 13.9 % (2.0-8.0); NEUTROPHILS # 3.2 10^3/uL (1.5-8.5); NEUTROPHILS % 62.9 % (36.0-66.0); PLATELET COUNT, AUTOMATED 225 10^3/uL (150-450); RED BLOOD COUNT 4.34 10^6/uL (4.30-6.10)
[2023-05-12 11:03] LABS: BLOOD UREA NITROGEN 18 MG/DL (9-23); CALCIUM LEVEL 8.7 MG/DL (8.5-10.1); CARBON DIOXIDE LEVEL 27 MMOL/L (20-31); CHLORIDE LEVEL 102 MMOL/L (98-107); CREATININE FOR GFR 1.09 MG/DL (0.70-1.30); GLOMERULAR FILTRATION RATE > 60.0 (>56); GLUCOSE, FASTING 111 MG/DL (60-100); MAGNESIUM LEVEL 1.8 MG/DL (1.8-2.4); POTASSIUM SERUM 4.5 MMOL/L (3.5-5.1); SODIUM LEVEL 136 MMOL/L (136-145)
[2023-05-12 11:48] VITALS: O2SAT 97
[2023-05-12] MEDS: ONDANSETRON 4MG ORAL DISINTEGRATING TAB PO ONE (11:52)
[2023-05-12 11:59] VITALS: BP 112/58; TEMP 97.3
== END 2023-05-12 12:00 | disposition home or self-care (01) ==
LOC: M ED 09:12
DX: R53.1 Weakness (principal); G89.4 Chronic pain syndrome; I50.20 Unspecified systolic (congestive) heart failure; I10 Essential (primary) hypertension; E78.5 Hyperlipidemia, unspecified; G47.33 Obstructive sleep apnea (adult) (pediatric); Z88.0 Allergy status to penicillin; Z88.8 Allergy status to other drugs, medicaments and biological substances; Z79.899 Other long term (current) drug therapy

== ENCOUNTER 2023-05-13 12:46 | Day surgery (SDC) | payer MEDICARE ==
[~2023-05-13] VITALS: Ht 175.3 cm; Wt 124.3 kg
[~2023-05-13 12:46] MED LIST changes: -HYDR-3910 PO; -HYDR25TA PO; +HYDR25TA87 PO; +HYDR25TA88 PO; -MINO100T PO; +MINO100T6 PO
[2023-05-13] MEDS: NS 1,000 ML IV ONE (13:09)
[2023-05-13] MEDS ORDERED: fentaNYL 100 MCG/2 ML INJECTION As Ordered ONE (14:39)
[2023-05-13] MEDS ORDERED: propofoL 200 MG/20 ML VIAL As Ordered ONE (15:10)
[2023-05-13 15:18] VITALS: TEMP 97.2
[2023-05-13 15:30] VITALS: BP 123/63; O2SAT 97
== END 2023-05-13 15:52 | disposition home or self-care (01) ==
LOC: M OPP 12:46
PROVIDERS: ATTEND Internal Medicine Gastroenterology
DX: K29.70 Gastritis, unspecified, without bleeding (principal); K31.89 Other diseases of stomach and duodenum; D62 Acute posthemorrhagic anemia; G47.30 Sleep apnea, unspecified; Z99.89 Dependence on other enabling machines and devices; I50.9 Heart failure, unspecified; Z79.891 Long term (current) use of opiate analgesic; Z79.899 Other long term (current) drug therapy; Z88.0 Allergy status to penicillin; Z88.8 Allergy status to other drugs, medicaments and biological substances
CPT/HCPCS: 43239; 88305; J3010

== ENCOUNTER → 2023-05-19 | Outpatient (CLI) | payer MEDICARE ==
[2023-05-19 11:44] LABS: EOS # 0.1 10^3/uL (0.0-0.5); EOS % 2.3 % (0.0-3.0); HEMATOCRIT 36.2 % (42.0-52.0); HEMOGLOBIN 10.9 g/dl (13.5-17.5); LYMPH # 0.5 10^3/uL (1.5-5.0); LYMPH % 13.3 % (24.0-44.0); MEAN CORPUSCULAR HEMOGLOBIN 23.6 pg (27.0-33.0); MEAN CORPUSCULAR HGB CONC 30.1 g/dl (32.0-36.5); MEAN CORPUSCULAR VOLUME 78.5 fl (80.0-96.0); MONO # 0.4 10^3/uL (0.0-0.8); NEUTROPHILS # 2.9 10^3/uL (1.5-8.5); NEUTROPHILS % 71.9 % (36.0-66.0); PLATELET COUNT, AUTOMATED 219 10^3/uL (150-450); RED BLOOD COUNT 4.61 10^6/uL (4.30-6.10)
[2023-05-19 12:15] LABS: FERRITIN 169.8 NG/ML (10.5-307.3); FOLATE 5.8 NG/ML (>5.4)
== END ==
LOC: M LAB 11:17
PROVIDERS: ATTEND Registered Nurse
DX: D50.9 Iron deficiency anemia, unspecified (principal)

== ENCOUNTER → 2023-06-04 | Outpatient (CLI) | payer MEDICARE | LOC: M RAD 07:51 | PROVIDERS: ATTEND Otolaryngology | DX: J32.9 Chronic sinusitis, unspecified (principal) ==

== ENCOUNTER → 2023-06-25 | Outpatient (CLI) | payer MEDICARE ==
[2023-06-25 12:25] LABS: BASO % 0.6 % (0.0-1.0); EOS # 0.2 10^3/uL (0.0-0.5); EOS % 2.9 % (0.0-3.0); HEMATOCRIT 40.4 % (42.0-52.0); HEMOGLOBIN 13.1 g/dl (13.5-17.5); LYMPH # 1.2 10^3/uL (1.5-5.0); LYMPH % 17.2 % (24.0-44.0); MEAN CORPUSCULAR HEMOGLOBIN 27.9 pg (27.0-33.0); MEAN CORPUSCULAR HGB CONC 32.4 g/dl (32.0-36.5); MEAN CORPUSCULAR VOLUME 86.1 fl (80.0-96.0); MONO # 0.7 10^3/uL (0.0-0.8); MONO % 9.7 % (2.0-8.0); NEUTROPHILS # 4.7 10^3/uL (1.5-8.5); NEUTROPHILS % 69.2 % (36.0-66.0); PLATELET COUNT, AUTOMATED 140 10^3/uL (150-450); RED BLOOD COUNT 4.69 10^6/uL (4.30-6.10); WHITE BLOOD COUNT 6.8 10^3/uL (4.0-10.0)
[2023-06-25 12:47] LABS: IRON (FE) 91 UG/DL (65-175); PERCENT SATURATION 23.3 % (19.7-50.0); TOTAL IRON BINDING CAPACITY 391 UG/DL (250-425)
[2023-06-25 12:48] LABS: ALBUMIN 4.2 G/DL (3.2-5.2); ALKALINE PHOSPHATASE 47 U/L (46-116); ALT/SGPT 156 U/L (7.0-40); AST/SGOT 276 U/L (<34); BILIRUBIN,TOTAL 0.9 MG/DL (0.3-1.2); BLOOD UREA NITROGEN 21 MG/DL (9-23); CALCIUM LEVEL 9.2 MG/DL (8.5-10.1); CARBON DIOXIDE LEVEL 30 MMOL/L (20-31); CHLORIDE LEVEL 99 MMOL/L (98-107); CREATININE FOR GFR 1.03 MG/DL (0.70-1.30); GLOMERULAR FILTRATION RATE > 60.0 (>56); GLUCOSE, FASTING 117 MG/DL (60-100); POTASSIUM SERUM 3.9 MMOL/L (3.5-5.1); SODIUM LEVEL 134 MMOL/L (136-145)
[2023-06-25 12:50] LABS: FERRITIN 472.3 NG/ML (10.5-307.3)
== END ==
LOC: M LAB 11:59
PROVIDERS: ATTEND Registered Nurse
DX: D50.9 Iron deficiency anemia, unspecified (principal); K76.0 Fatty (change of) liver, not elsewhere classified

== ENCOUNTER → 2023-07-05 | Outpatient (CLI) | payer MEDICARE ==
[~2023-07-05] MED LIST changes: -MIRT-60 PO; +MIRT-89 PO
== END ==
LOC: M PAIN 09:45
PROVIDERS: ATTEND Nurse Practitioner Family
DX: M50.10 Cervical disc disorder with radiculopathy, unspecified cervical region (principal); M51.16 Intervertebral disc disorders with radiculopathy, lumbar region; Z79.891 Long term (current) use of opiate analgesic; I50.9 Heart failure, unspecified; K76.0 Fatty (change of) liver, not elsewhere classified; I11.0 Hypertensive heart disease with heart failure; Z79.02 Long term (current) use of antithrombotics/antiplatelets; Z79.899 Other long term (current) drug therapy; Z88.0 Allergy status to penicillin; Z88.8 Allergy status to other drugs, medicaments and biological substances

== ENCOUNTER → 2023-07-08 | Outpatient (CLI) | payer MEDICARE ==
[2023-07-08 12:10] LABS: HEMATOCRIT 39.3 % (42.0-52.0); HEMOGLOBIN 12.5 g/dl (13.5-17.5)
== END ==
LOC: M LAB 10:56
PROVIDERS: ATTEND Internal Medicine Endocrinology, Diabetes & Metabolism
DX: E29.1 Testicular hypofunction (principal)

== ENCOUNTER → 2023-07-29 | Outpatient (CLI) | payer MEDICARE ==
[~2023-07-29] MED LIST changes: +GASTROGRAFIN SOLUTION 30ML As Ordered ONE; +ISOVUE-370 76% 100ML VIAL As Ordered ONE
[2023-07-29 07:33] LABS: INR 1.06; PROTHROMBIN TIME 13.5 SECONDS (12.5-14.5)
[2023-07-29 07:46] LABS: ALBUMIN 3.8 G/DL (3.2-5.2); ALKALINE PHOSPHATASE 48 U/L (46-116); ALT/SGPT 114 U/L (7.0-40); AST/SGOT 102 U/L (<34); BILIRUBIN,TOTAL 0.7 MG/DL (0.3-1.2); BLOOD UREA NITROGEN 12 MG/DL (9-23); CALCIUM LEVEL 9.5 MG/DL (8.5-10.1); CARBON DIOXIDE LEVEL 29 MMOL/L (20-31); CHLORIDE LEVEL 100 MMOL/L (98-107); CREATININE FOR GFR 0.83 MG/DL (0.70-1.30); GLOMERULAR FILTRATION RATE > 60.0 (>56); GLUCOSE, FASTING 127 MG/DL (60-100); POTASSIUM SERUM 4.4 MMOL/L (3.5-5.1); SODIUM LEVEL 136 MMOL/L (136-145); TOTAL PROTEIN 6.6 G/DL (5.7-8.2)
[2023-07-29 08:35] LABS: HEPATITIS B CORE ANTIBODY IGM NEGATIVE (NEGATIVE)
[2023-07-29 08:36] LABS: HEPATITIS C VIRUS ABY INDEX < 0.02 INDEX (<0.8)
== END ==
LOC: M RAD 06:49
PROVIDERS: ATTEND Registered Nurse
DX: R94.5 Abnormal results of liver function studies (principal); R16.2 Hepatomegaly with splenomegaly, not elsewhere classified; K76.0 Fatty (change of) liver, not elsewhere classified
CPT/HCPCS: 36415; 74170; 80053; 80074; 82977; 85610; Q9963; Q9967

== ENCOUNTER → 2023-08-03 | Outpatient (REF) | payer MEDICARE ==
[~2023-08-03] MED LIST changes: -GASTROGRAFIN SOLUTION 30ML As Ordered ONE; -ISOVUE-370 76% 100ML VIAL As Ordered ONE
[2023-08-03 10:58] LABS: CLOSTRIDIUM DIFFICILE PCR POSITIVE (NEGATIVE)
== END ==
LOC: M LAB REF 09:13
PROVIDERS: ATTEND Internal Medicine Gastroenterology
DX: R19.7 Diarrhea, unspecified (principal)

== ENCOUNTER 2023-08-09 13:15 | Emergency (ER) | payer MEDICARE ==
[~2023-08-09] VITALS: Ht 175.3 cm; Wt 127.3 kg
[2023-08-09] MEDS: MORPHINE 4 MG/ML 1ML VIAL IV ONE (18:52)
[2023-08-09] MEDS: ONDANSETRON 4MG 2ML VIAL IV ONE (18:52)
[2023-08-09 19:06] LABS: BASO % 0.5 % (0.0-1.0); EOS # 0.1 10^3/uL (0.0-0.5); EOS % 2.2 % (0.0-3.0); HEMATOCRIT 40.5 % (42.0-52.0); HEMOGLOBIN 13.3 g/dl (13.5-17.5); LYMPH % 15.9 % (24.0-44.0); MEAN CORPUSCULAR HEMOGLOBIN 29.4 pg (27.0-33.0); MEAN CORPUSCULAR HGB CONC 32.8 g/dl (32.0-36.5); MEAN CORPUSCULAR VOLUME 89.6 fl (80.0-96.0); MONO # 0.7 10^3/uL (0.0-0.8); MONO % 10.8 % (2.0-8.0); NEUTROPHILS # 4.2 10^3/uL (1.5-8.5); NEUTROPHILS % 69.9 % (36.0-66.0); PLATELET COUNT, AUTOMATED 165 10^3/uL (150-450); RED BLOOD COUNT 4.52 10^6/uL (4.30-6.10)
[2023-08-09 19:23] LABS: LIPASE 40 U/L (12-53)
[2023-08-09 19:25] LABS: ALBUMIN 4.1 G/DL (3.2-5.2); ALKALINE PHOSPHATASE 49 U/L (46-116); ALT/SGPT 170 U/L (7.0-40); AST/SGOT 217 U/L (<34); BILIRUBIN,DIRECT 0.2 MG/DL (<0.4); BILIRUBIN,TOTAL 0.7 MG/DL (0.3-1.2); BLOOD UREA NITROGEN 12 MG/DL (9-23); CALCIUM LEVEL 9.2 MG/DL (8.5-10.1); CARBON DIOXIDE LEVEL 29 MMOL/L (20-31); CHLORIDE LEVEL 100 MMOL/L (98-107); CK-MB VALUE MASS 1.5 NG/ML (<3.6); CREATININE FOR GFR 0.93 MG/DL (0.70-1.30); GLOMERULAR FILTRATION RATE > 60.0 (>56); GLUCOSE, FASTING 103 MG/DL (60-100); SODIUM LEVEL 134 MMOL/L (136-145); TOTAL PROTEIN 6.9 G/DL (5.7-8.2)
[2023-08-09 19:29] LABS: CPK CREATINE PHOSPHOKINASE 197 U/L (46-171); MB/CK RELATIVE INDEX 0.76 (< OR =4)
[2023-08-09] MEDS ORDERED: ISOVUE-370 76% 100ML VIAL As Ordered ONE (19:43)
[2023-08-09 21:38] LABS: CK-MB VALUE MASS 1.3 NG/ML (<3.6)
[2023-08-09 21:40] LABS: MB/CK RELATIVE INDEX 0.77 (< OR =4)
[2023-08-09] MEDS: MAALOX 30 ML SUSP *UDC PO ONE (21:59)
[2023-08-09 23:03] VITALS: BP 157/99; TEMP 98.1; O2SAT 98
== END 2023-08-09 22:56 | disposition home or self-care (01) ==
LOC: M ED 13:15
DX: R59.0 Localized enlarged lymph nodes (principal); K76.0 Fatty (change of) liver, not elsewhere classified; K42.9 Umbilical hernia without obstruction or gangrene; K40.90 Unilateral inguinal hernia, without obstruction or gangrene, not specified as recurrent; I50.9 Heart failure, unspecified; E11.9 Type 2 diabetes mellitus without complications; I10 Essential (primary) hypertension; K21.9 Gastro-esophageal reflux disease without esophagitis; K57.92 Diverticulitis of intestine, part unspecified, without perforation or abscess without bleeding; E78.5 Hyperlipidemia, unspecified; J44.9 Chronic obstructive pulmonary disease, unspecified
CPT/HCPCS: 74177; 80048; 80076; 81001; 82550; 82553; 83690; 83880; 84484; 85025; 96374; 96375; 99284; J2405; Q9967

== ENCOUNTER → 2023-08-12 | Outpatient (CLI) | payer MEDICARE ==
[2023-08-12 12:58] LABS: BASO % 0.6 % (0.0-1.0); EOS # 0.1 10^3/uL (0.0-0.5); EOS % 1.5 % (0.0-3.0); HEMATOCRIT 38.5 % (42.0-52.0); HEMOGLOBIN 12.9 g/dl (13.5-17.5); LYMPH % 14.8 % (24.0-44.0); MEAN CORPUSCULAR HEMOGLOBIN 29.6 pg (27.0-33.0); MEAN CORPUSCULAR HGB CONC 33.5 g/dl (32.0-36.5); MEAN CORPUSCULAR VOLUME 88.3 fl (80.0-96.0); MONO # 0.7 10^3/uL (0.0-0.8); NEUTROPHILS # 4.8 10^3/uL (1.5-8.5); NEUTROPHILS % 71.8 % (36.0-66.0); PLATELET COUNT, AUTOMATED 168 10^3/uL (150-450); RED BLOOD COUNT 4.36 10^6/uL (4.30-6.10); WHITE BLOOD COUNT 6.7 10^3/uL (4.0-10.0)
[2023-08-12 13:17] LABS: ALBUMIN 3.6 G/DL (3.2-5.2); ALKALINE PHOSPHATASE 45 U/L (46-116); ALT/SGPT 144 U/L (7.0-40); AST/SGOT 122 U/L (<34); BILIRUBIN,TOTAL 0.8 MG/DL (0.3-1.2); BLOOD UREA NITROGEN 15 MG/DL (9-23); CALCIUM LEVEL 9.1 MG/DL (8.5-10.1); CARBON DIOXIDE LEVEL 28 MMOL/L (20-31); CHLORIDE LEVEL 102 MMOL/L (98-107); CREATININE FOR GFR 0.94 MG/DL (0.70-1.30); GLOMERULAR FILTRATION RATE > 60.0 (>56); GLUCOSE, FASTING 109 MG/DL (60-100); SODIUM LEVEL 137 MMOL/L (136-145); TOTAL PROTEIN 6.7 G/DL (5.7-8.2)
== END ==
LOC: M LAB 12:27
PROVIDERS: ATTEND Nurse Practitioner Family
DX: R63.4 Abnormal weight loss (principal)

== ENCOUNTER 2023-08-31 09:57 | Day surgery (SDC) | payer MEDICARE ==
[~2023-08-31] VITALS: Ht 175.3 cm; Wt 123.3 kg
[~2023-08-31 09:57] MED LIST changes: +CHOL50003 PO; +NS 1,000 ML IV ONE; +VANC125C3 PO
[2023-08-31] MEDS ORDERED: PANT40TA29 PO (10:40)
[2023-08-31] MEDS ORDERED: propofoL 200 MG/20 ML VIAL As Ordered ONE (11:01)
[2023-08-31] MEDS ORDERED: propofoL 500 MG/50 ML VIAL As Ordered ONE (11:01)
[2023-08-31] MEDS ORDERED: ePHEDrine SULFATE 25 MG/5 ML(5MG/ML) SYRINGE As Ordered ONE (11:27)
[2023-08-31 11:39] VITALS: TEMP 97.7
[2023-08-31 12:00] VITALS: BP 117/65; O2SAT 98
== END 2023-08-31 12:16 | disposition home or self-care (01) ==
LOC: M OPP 09:57
PROVIDERS: ATTEND Internal Medicine Gastroenterology
DX: D12.6 Benign neoplasm of colon, unspecified (principal); K63.5 Polyp of colon; K64.8 Other hemorrhoids; K64.4 Residual hemorrhoidal skin tags; K57.31 Diverticulosis of large intestine without perforation or abscess with bleeding; K52.9 Noninfective gastroenteritis and colitis, unspecified; G47.30 Sleep apnea, unspecified; Z99.89 Dependence on other enabling machines and devices; I10 Essential (primary) hypertension; Z79.02 Long term (current) use of antithrombotics/antiplatelets; Z79.891 Long term (current) use of opiate analgesic; Z79.899 Other long term (current) drug therapy; Z88.0 Allergy status to penicillin; Z88.8 Allergy status to other drugs, medicaments and biological substances

== ENCOUNTER → 2023-09-06 | Outpatient (CLI) | payer MEDICARE ==
[~2023-09-06] MED LIST changes: +ESOM1CAP20 PO; -ESOM1CAP5 PO; -NS 1,000 ML IV ONE; +PANT40TA29 PO
== END ==
LOC: M PAIN 10:15
PROVIDERS: ATTEND Nurse Practitioner Family
DX: M51.16 Intervertebral disc disorders with radiculopathy, lumbar region (principal); M96.1 Postlaminectomy syndrome, not elsewhere classified; I50.9 Heart failure, unspecified; I10 Essential (primary) hypertension; Z79.02 Long term (current) use of antithrombotics/antiplatelets; Z79.891 Long term (current) use of opiate analgesic; Z79.899 Other long term (current) drug therapy; Z88.0 Allergy status to penicillin; Z88.4 Allergy status to anesthetic agent

== ENCOUNTER → 2023-09-06 | Outpatient (CLI) | payer MEDICARE ==
[2023-09-06 10:58] LABS: CHOLESTEROL RISK RATIO 4.45 (<5); HDL CHOLESTEROL 33.9 MG/DL (>40); LDL CHOLESTEROL 88.9 MG/DL (<100); NON-HDL-C 117.1 MG/DL
== END ==
LOC: M LAB 09:41
PROVIDERS: ATTEND Registered Nurse
DX: E78.2 Mixed hyperlipidemia (principal)

== ENCOUNTER 2023-09-10 02:53 | Emergency (ER) | payer MEDICARE ==
[~2023-09-10] VITALS: Ht 175.3 cm; Wt 128.6 kg
[2023-09-10 03:35] LABS: BASO % 0.4 % (0.0-1.0); EOS # 0.2 10^3/uL (0.0-0.5); EOS % 2.8 % (0.0-3.0); HEMATOCRIT 36.4 % (42.0-52.0); HEMOGLOBIN 12.1 g/dl (13.5-17.5); LYMPH # 1.4 10^3/uL (1.5-5.0); LYMPH % 21.2 % (24.0-44.0); MEAN CORPUSCULAR HEMOGLOBIN 29.3 pg (27.0-33.0); MEAN CORPUSCULAR HGB CONC 33.2 g/dl (32.0-36.5); MEAN CORPUSCULAR VOLUME 88.1 fl (80.0-96.0); MONO # 0.8 10^3/uL (0.0-0.8); MONO % 11.5 % (2.0-8.0); NEUTROPHILS # 4.3 10^3/uL (1.5-8.5); NEUTROPHILS % 63.5 % (36.0-66.0); PLATELET COUNT, AUTOMATED 203 10^3/uL (150-450); RED BLOOD COUNT 4.13 10^6/uL (4.30-6.10); WHITE BLOOD COUNT 6.8 10^3/uL (4.0-10.0)
[2023-09-10 03:52] LABS: LIPASE 39 U/L (12-53)
[2023-09-10 03:54] LABS: ALBUMIN 3.6 G/DL (3.2-5.2); ALKALINE PHOSPHATASE 47 U/L (46-116); ALT/SGPT 50 U/L (7.0-40); AST/SGOT 28 U/L (<34); BILIRUBIN,DIRECT 0.1 MG/DL (<0.4); BILIRUBIN,TOTAL 0.4 MG/DL (0.3-1.2); BLOOD UREA NITROGEN 20 MG/DL (9-23); CALCIUM LEVEL 9.5 MG/DL (8.5-10.1); CARBON DIOXIDE LEVEL 29 MMOL/L (20-31); CHLORIDE LEVEL 103 MMOL/L (98-107); CPK CREATINE PHOSPHOKINASE 145 U/L (46-171); CREATININE FOR GFR 0.88 MG/DL (0.70-1.30); GLOMERULAR FILTRATION RATE > 60.0 (>56); GLUCOSE, FASTING 114 MG/DL (60-100); MB/CK RELATIVE INDEX 0.68 (< OR =4); POTASSIUM SERUM 4.1 MMOL/L (3.5-5.1); SODIUM LEVEL 138 MMOL/L (136-145); TOTAL PROTEIN 6.3 G/DL (5.7-8.2)
[2023-09-10 03:56] LABS: INR 1.07; PROTHROMBIN TIME 13.6 SECONDS (12.5-14.5)
[2023-09-10] MEDS ORDERED: ISOVUE-370 76% 100ML VIAL As Ordered ONE (07:36)
[2023-09-10 08:27] LABS: CK-MB VALUE MASS < 1.0 NG/ML (<3.6)
[2023-09-10 08:28] LABS: CPK CREATINE PHOSPHOKINASE 121 U/L (46-171); MB/CK RELATIVE INDEX 0.82 (< OR =4)
[2023-09-10 08:37] LABS: RSV AMPLIFICATION NEGATIVE (NEGATIVE)
[2023-09-10] MEDS: CARVedilol 12.5 MG TAB PO ONE (09:15)
[2023-09-10 09:49] VITALS: BP 140/77
[2023-09-10] MEDS: amLODIPine 5 MG TAB PO ONE (09:49)
[2023-09-10] MEDS: FUROSEMIDE 40MG/4ML VIAL IV ONE (09:50)
[2023-09-10] MEDS: ENTRESTO 24-26MG TABLET (SACUBITRIL/VALSARTAN) PO SCH (10:49)
[2023-09-10] MEDS: SPIRONOLACTONE 50 MG TAB PO SCH (10:49)
[2023-09-10 10:56] VITALS: O2SAT 96
[2023-09-10 11:57] VITALS: BP 147/87; TEMP 97.6; O2SAT 97
== END 2023-09-10 11:59 | disposition home or self-care (01) ==
LOC: M ED 02:53
DX: R06.00 Dyspnea, unspecified (principal); M47.892 Other spondylosis, cervical region; Z79.899 Other long term (current) drug therapy; Z88.0 Allergy status to penicillin; Z88.8 Allergy status to other drugs, medicaments and biological substances; I50.9 Heart failure, unspecified; I10 Essential (primary) hypertension; F41.9 Anxiety disorder, unspecified; F32.A Depression, unspecified; Z86.19 Personal history of other infectious and parasitic diseases; K21.9 Gastro-esophageal reflux disease without esophagitis; Z87.891 Personal history of nicotine dependence
CPT/HCPCS: 70450; 71045; 71275; 72125; 80048; 80076; 82550; 82553; 83690; 83880; 84484; 85025; 85610; 87631; 93005; 99285; J1940; Q9967

== ENCOUNTER 2023-09-24 13:35 | Emergency (ER) | payer MEDICARE ==
[~2023-09-24] VITALS: Ht 175.3 cm; Wt 127.4 kg
[2023-09-24 14:51] LABS: BASO % 0.6 % (0.0-1.0); EOS # 0.1 10^3/uL (0.0-0.5); EOS % 2.1 % (0.0-3.0); HEMATOCRIT 38.2 % (42.0-52.0); HEMOGLOBIN 12.5 g/dl (13.5-17.5); LYMPH # 1.3 10^3/uL (1.5-5.0); LYMPH % 24.9 % (24.0-44.0); MEAN CORPUSCULAR HEMOGLOBIN 28.5 pg (27.0-33.0); MEAN CORPUSCULAR HGB CONC 32.7 g/dl (32.0-36.5); MEAN CORPUSCULAR VOLUME 87.2 fl (80.0-96.0); MONO # 0.7 10^3/uL (0.0-0.8); MONO % 12.8 % (2.0-8.0); NEUTROPHILS # 3.1 10^3/uL (1.5-8.5); NEUTROPHILS % 58.5 % (36.0-66.0); PLATELET COUNT, AUTOMATED 150 10^3/uL (150-450); RED BLOOD COUNT 4.38 10^6/uL (4.30-6.10); WHITE BLOOD COUNT 5.2 10^3/uL (4.0-10.0)
[2023-09-24 15:22] LABS: BLOOD UREA NITROGEN 14 MG/DL (9-23); CALCIUM LEVEL 8.9 MG/DL (8.5-10.1); CARBON DIOXIDE LEVEL 30 MMOL/L (20-31); CHLORIDE LEVEL 101 MMOL/L (98-107); CREATININE FOR GFR 0.84 MG/DL (0.70-1.30); GLOMERULAR FILTRATION RATE > 60.0 (>56); GLUCOSE, FASTING 116 MG/DL (60-100); POTASSIUM SERUM 3.7 MMOL/L (3.5-5.1); SODIUM LEVEL 136 MMOL/L (136-145)
[2023-09-24] MEDS: GASTROGRAFIN SOLUTION 30ML PO SCH (16:27)
[2023-09-24] MEDS: ACETAMINOPHEN 325 MG TAB PO ONE (17:14)
[2023-09-24] MEDS ORDERED: ISOVUE-370 76% 100ML VIAL As Ordered ONE (17:22)
[2023-09-24] MEDS ORDERED: HOME MED LIST COMPLETE! XX SCH (17:45)
[2023-09-24] MEDS ORDERED: GASTROGRAFIN SOLUTION 30ML PO SCH (18:30)
[2023-09-24 18:55] LABS: HEMOGLOBIN 11.9 g/dl (13.5-17.5)
[2023-09-24 19:30] VITALS: TEMP 97.2; O2SAT 99
[2023-09-24 19:43] VITALS: BP 161/82
== END 2023-09-24 19:46 | disposition home or self-care (01) ==
LOC: M ED 13:35
DX: K57.31 Diverticulosis of large intestine without perforation or abscess with bleeding (principal); I11.0 Hypertensive heart disease with heart failure; E78.5 Hyperlipidemia, unspecified; Z87.19 Personal history of other diseases of the digestive system; E66.9 Obesity, unspecified; G47.33 Obstructive sleep apnea (adult) (pediatric); K42.9 Umbilical hernia without obstruction or gangrene; Z79.899 Other long term (current) drug therapy; Z88.0 Allergy status to penicillin; Z88.8 Allergy status to other drugs, medicaments and biological substances
CPT/HCPCS: 74177; 80048; 85014; 85018; 85025; 86850; 86900; 86901; 99285; Q9963; Q9967

== ENCOUNTER → 2023-10-04 | Outpatient (CLI) | payer MEDICARE ==
[2023-10-04 09:26] LABS: BASO % 0.7 % (0.0-1.0); EOS # 0.1 10^3/uL (0.0-0.5); EOS % 1.5 % (0.0-3.0); HEMATOCRIT 38.4 % (42.0-52.0); HEMOGLOBIN 12.7 g/dl (13.5-17.5); LYMPH # 1.1 10^3/uL (1.5-5.0); LYMPH % 20.1 % (24.0-44.0); MEAN CORPUSCULAR HEMOGLOBIN 28.7 pg (27.0-33.0); MEAN CORPUSCULAR HGB CONC 33.1 g/dl (32.0-36.5); MEAN CORPUSCULAR VOLUME 86.9 fl (80.0-96.0); MONO # 0.7 10^3/uL (0.0-0.8); MONO % 12.1 % (2.0-8.0); NEUTROPHILS # 3.5 10^3/uL (1.5-8.5); NEUTROPHILS % 64.9 % (36.0-66.0); PLATELET COUNT, AUTOMATED 170 10^3/uL (150-450); RED BLOOD COUNT 4.42 10^6/uL (4.30-6.10); WHITE BLOOD COUNT 5.5 10^3/uL (4.0-10.0)
[2023-10-04 09:38] LABS: AMORPHOUS SEDIMENT SMALL (NEGATIVE); APPEARANCE, URINE CLOUDY (CLEAR); BACTERIA, URINE AUTO NEGATIVE (NEGATIVE); BILIRUBIN, URINE AUTO NEGATIVE (NEGATIVE); BLOOD, URINE BLOOD NEGATIVE (NEGATIVE); COLOR, URINE YELLOW (YELLOW); GLUCOSE, URINE (UA) AUTO NEGATIVE (NEGATIVE); KETONE, URINE AUTO NEGATIVE (NEGATIVE); LEUKOCYTE ESTERASE, URINE AUTO NEGATIVE (NEGATIVE); NITRITE, URINE AUTO NEGATIVE (NEGATIVE); PROTEIN, URINE AUTO NEGATIVE (NEGATIVE); RBC, URINE AUTO 1 /HPF (0-3); SPECIFIC GRAVITY URINE AUTO 1.008 (1.002-1.035); SQUAMOUS EPITHELIAL CELL UR AU 0 /HPF (0-6); UROBILINOGEN, URINE AUTO 0.2 mg/dL (0.0-2.0); WBC, URINE AUTO 1 /HPF (0-3)
[2023-10-04 09:52] LABS: ALBUMIN 3.8 G/DL (3.2-5.2); ALKALINE PHOSPHATASE 50 U/L (46-116); ALT/SGPT 70 U/L (7.0-40); AST/SGOT 52 U/L (<34); BILIRUBIN,TOTAL 0.6 MG/DL (0.3-1.2); BLOOD UREA NITROGEN 17 MG/DL (9-23); CALCIUM LEVEL 9.5 MG/DL (8.5-10.1); CARBON DIOXIDE LEVEL 31 MMOL/L (20-31); CHLORIDE LEVEL 102 MMOL/L (98-107); CREATININE FOR GFR 0.87 MG/DL (0.70-1.30); GLOMERULAR FILTRATION RATE > 60.0 (>56); GLUCOSE, FASTING 137 MG/DL (60-100); POTASSIUM SERUM 4.1 MMOL/L (3.5-5.1); SODIUM LEVEL 138 MMOL/L (136-145); TOTAL PROTEIN 6.5 G/DL (5.7-8.2)
== END ==
LOC: M LAB 08:45
PROVIDERS: ATTEND Registered Nurse
DX: K29.61 Other gastritis with bleeding (principal); E29.1 Testicular hypofunction

== ENCOUNTER → 2023-10-08 | Outpatient (CLI) | payer MEDICARE ==
[~2023-10-08] MED LIST changes: +PROHANCE 279.3MG/ML 15ML VIAL As Ordered ONE; +PROHANCE 279.3MG/ML 5ML VIAL As Ordered ONE
== END ==
LOC: M RAD 10:26
PROVIDERS: ATTEND Nurse Practitioner Family
DX: M96.1 Postlaminectomy syndrome, not elsewhere classified (principal); M51.36 Other intervertebral disc degeneration, lumbar region
CPT/HCPCS: 72158; A9576

== ENCOUNTER 2023-10-19 08:27 | Day surgery (SDC) | payer MEDICARE ==
[~2023-10-19] VITALS: Ht 175.3 cm; Wt 126.6 kg
[~2023-10-19 08:27] MED LIST changes: -PROHANCE 279.3MG/ML 15ML VIAL As Ordered ONE; -PROHANCE 279.3MG/ML 5ML VIAL As Ordered ONE
[2023-10-19] MEDS ORDERED: LR 1,000 ML IV SCH ×2 (08:35→13:00)
[2023-10-19] MEDS ORDERED: MIDAZOLAM INJ 2MG/2ML VIAL As Ordered ONE (10:58)
[2023-10-19] MEDS ORDERED: ROCURONIUM BROMIDE 50MG/5ML VIAL As Ordered ONE (10:58)
[2023-10-19] MEDS ORDERED: LIDOCAINE 2% 100MG/5ML SDV (FOR ANES.) As Ordered ONE (10:58)
[2023-10-19] MEDS ORDERED: fentaNYL 250 MCG/5 ML INJECTION As Ordered ONE (10:58)
[2023-10-19] MEDS ORDERED: propofoL 200 MG/20 ML VIAL As Ordered ONE (10:58)
[2023-10-19] MEDS ORDERED: ONDANSETRON 4MG 2ML VIAL As Ordered ONE (11:38)
[2023-10-19] MEDS: COCAINE 4% 4ML NASAL SOLUTION BTL As Ordered ONE (11:40)
[2023-10-19] MEDS ORDERED: PHENYLephrine 500MCG 5ML (100MCG/ML) SYRINGE As Ordered ONE (11:41)
[2023-10-19] MEDS ORDERED: SUGAMMADEX SODIUM 500 MG/5 ML VIAL (BRIDION) As Ordered ONE (11:53)
[2023-10-19] MEDS ORDERED: ACETAMINOPHEN 1000MG 100ML IV BAG As Ordered ONE (11:53)
[2023-10-19] MEDS ORDERED: ePHEDrine SULFATE 25 MG/5 ML(5MG/ML) SYRINGE As Ordered ONE (12:13)
[2023-10-19] MEDS: METHYLENE BLUE 0.5% (5MG/ML) 10 ML AMP (PROVAYBLUE) As Ordered ONE (12:45)
[2023-10-19] MEDS: LIDOCAINE W/EPINEPHRINE 1% 20ML VIAL As Ordered ONE (12:45)
[2023-10-19] MEDS: OXYMETAZOLINE 0.05% NASAL SPRAY (AFRIN) As Ordered ONE (12:45)
[2023-10-19] MEDS: ONDANSETRON 4MG 2ML VIAL IV PRN (13:53)
[2023-10-19] MEDS: fentaNYL 100 MCG/2 ML INJECTION IV PRN (13:54)
[2023-10-19] MEDS: oxyCODONE 5MG TAB PO PRN (14:02)
[2023-10-19 15:05] VITALS: BP 154/83; TEMP 98.3; O2SAT 97
== END 2023-10-19 15:18 | disposition home or self-care (01) ==
LOC: M SDC 08:27
PROVIDERS: ATTEND Otolaryngology
DX: J32.9 Chronic sinusitis, unspecified (principal); L90.5 Scar conditions and fibrosis of skin; I50.9 Heart failure, unspecified; I11.0 Hypertensive heart disease with heart failure; G47.30 Sleep apnea, unspecified; E78.00 Pure hypercholesterolemia, unspecified; K76.0 Fatty (change of) liver, not elsewhere classified; N40.0 Benign prostatic hyperplasia without lower urinary tract symptoms; R60.0 Localized edema; Z88.0 Allergy status to penicillin; Z88.8 Allergy status to other drugs, medicaments and biological substances; Z79.899 Other long term (current) drug therapy; Z79.891 Long term (current) use of opiate analgesic; Z79.890 Hormone replacement therapy
CPT/HCPCS: 31267; 31276; 61782; 88305; A6024; C9143; J0131; J1100; J2250; J2371; J2405; J3010; Q9968

== ENCOUNTER 2023-10-23 19:06 | Emergency (ER) | payer MEDICARE ==
[~2023-10-23] VITALS: Ht 175.3 cm; Wt 131.7 kg
[2023-10-23 19:07] VITALS: TEMP 97.8
[2023-10-23 19:55] LABS: VENOUS BASE EXCESS 3.6 (-2.0-2.0); VENOUS HCO3 27.7 MMOL/L (23.0-27.0); VENOUS O2 SATURATION 98.9 % (60.0-80.0); VENOUS PARTIAL PRESSURE CO2 39.9 mmHg (38.0-50.0); VENOUS PARTIAL PRESSURE O2 145.6 mmHg (30.0-50.0); VENOUS PH 7.459 UNITS (7.330-7.430); VENOUS STANDARD HCO3 27.7 MMOL/L; VENOUS TOTAL CO2 28.9 MMOL/L (24.0-28.0)
[2023-10-23 20:04] LABS: BASO % 0.5 % (0.0-1.0); EOS # 0.1 10^3/uL (0.0-0.5); EOS % 2.2 % (0.0-3.0); HEMATOCRIT 33.9 % (42.0-52.0); HEMOGLOBIN 10.9 g/dl (13.5-17.5); LYMPH # 1.3 10^3/uL (1.5-5.0); LYMPH % 19.7 % (24.0-44.0); MEAN CORPUSCULAR HEMOGLOBIN 28.6 pg (27.0-33.0); MEAN CORPUSCULAR HGB CONC 32.2 g/dl (32.0-36.5); MONO % 15.1 % (2.0-8.0); NEUTROPHILS % 61.4 % (36.0-66.0); PLATELET COUNT, AUTOMATED 175 10^3/uL (150-450); RED BLOOD COUNT 3.81 10^6/uL (4.30-6.10); WHITE BLOOD COUNT 6.5 10^3/uL (4.0-10.0)
[2023-10-23 20:23] LABS: CK-MB VALUE MASS 1.3 NG/ML (<3.6)
[2023-10-23 20:24] LABS: CPK CREATINE PHOSPHOKINASE 207 U/L (46-171); MB/CK RELATIVE INDEX 0.62 (< OR =4)
[2023-10-23 20:25] LABS: ALBUMIN 3.6 G/DL (3.2-5.2); ALKALINE PHOSPHATASE 43 U/L (46-116); ALT/SGPT 123 U/L (7.0-40); AST/SGOT 123 U/L (<34); BILIRUBIN,DIRECT 0.2 MG/DL (<0.4); BILIRUBIN,TOTAL 0.5 MG/DL (0.3-1.2); BLOOD UREA NITROGEN 16 MG/DL (9-23); CALCIUM LEVEL 9.1 MG/DL (8.5-10.1); CARBON DIOXIDE LEVEL 29 MMOL/L (20-31); CHLORIDE LEVEL 103 MMOL/L (98-107); CREATININE FOR GFR 0.94 MG/DL (0.70-1.30); GLOMERULAR FILTRATION RATE > 60.0 (>56); GLUCOSE, FASTING 110 MG/DL (60-100); POTASSIUM SERUM 4.3 MMOL/L (3.5-5.1); SODIUM LEVEL 138 MMOL/L (136-145); TOTAL PROTEIN 6.3 G/DL (5.7-8.2)
[2023-10-23] MEDS ORDERED: ISOVUE-370 76% 100ML VIAL As Ordered ONE (20:50)
[2023-10-23 22:20] LABS: CK-MB VALUE MASS < 1.0 NG/ML (<3.6)
[2023-10-23 22:21] LABS: CPK CREATINE PHOSPHOKINASE 189 U/L (46-171); MB/CK RELATIVE INDEX 0.52 (< OR =4)
[2023-10-23] MEDS: ONDANSETRON 4MG 2ML VIAL IV ONE (22:30)
[2023-10-23] MEDS: KETOROLAC 30 MG/ML 1ML VIAL IV ONE (22:30)
[2023-10-23] MEDS ORDERED: MECL-86 PO (23:26)
[2023-10-23] MEDS ORDERED: ONDA-282 PO (23:26)
[2023-10-23 23:45] VITALS: BP 100/57; O2SAT 96
[2023-10-23] MEDS: MECLIZINE 25 MG TABLET PO ONE (23:46)
== END 2023-10-23 23:52 | disposition home or self-care (01) ==
LOC: M ED 19:06
DX: R60.9 Edema, unspecified (principal); R42 Dizziness and giddiness; I11.0 Hypertensive heart disease with heart failure; E78.5 Hyperlipidemia, unspecified; Z88.0 Allergy status to penicillin; Z88.8 Allergy status to other drugs, medicaments and biological substances; Z79.899 Other long term (current) drug therapy
CPT/HCPCS: 71045; 71275; 80048; 80076; 82550; 82553; 82803; 83605; 83880; 84484; 85025; 93005; 93041; 94760; 96374; 96375; 99285; J1885; J2405; Q9967

== ENCOUNTER 2023-10-28 07:17 | Inpatient (IN) | payer MEDICARE ==
[~2023-10-28] VITALS: Ht 175.3 cm; Wt 130.1 kg
[~2023-10-28 07:17] MED LIST changes: +MECL-86 PO; +ONDA-282 PO
[2023-10-28 08:05] LABS: VENOUS BASE EXCESS 3.9 (-2.0-2.0); VENOUS HCO3 29.4 MMOL/L (23.0-27.0); VENOUS PARTIAL PRESSURE CO2 48.1 mmHg (38.0-50.0); VENOUS PARTIAL PRESSURE O2 51.9 mmHg (30.0-50.0); VENOUS PH 7.404 UNITS (7.330-7.430); VENOUS STANDARD HCO3 27.8 MMOL/L; VENOUS TOTAL CO2 30.9 MMOL/L (24.0-28.0)
[2023-10-28 08:09] LABS: BASO % 0.7 % (0.0-1.0); EOS # 0.1 10^3/uL (0.0-0.5); EOS % 2.5 % (0.0-3.0); HEMATOCRIT 32.9 % (42.0-52.0); HEMOGLOBIN 10.3 g/dl (13.5-17.5); LYMPH # 1.1 10^3/uL (1.5-5.0); LYMPH % 19.9 % (24.0-44.0); MEAN CORPUSCULAR HGB CONC 31.3 g/dl (32.0-36.5); MEAN CORPUSCULAR VOLUME 89.4 fl (80.0-96.0); MONO # 0.9 10^3/uL (0.0-0.8); MONO % 15.6 % (2.0-8.0); NEUTROPHILS # 3.3 10^3/uL (1.5-8.5); PLATELET COUNT, AUTOMATED 201 10^3/uL (150-450); RED BLOOD COUNT 3.68 10^6/uL (4.30-6.10); WHITE BLOOD COUNT 5.5 10^3/uL (4.0-10.0)
[2023-10-28 08:52] LABS: LIPASE 35 U/L (12-53)
[2023-10-28 08:55] LABS: ALBUMIN 3.5 G/DL (3.2-5.2); ALKALINE PHOSPHATASE 44 U/L (46-116); ALT/SGPT 104 U/L (7.0-40); AST/SGOT 105 U/L (<34); BILIRUBIN,DIRECT 0.1 MG/DL (<0.4); BILIRUBIN,TOTAL 0.4 MG/DL (0.3-1.2); BLOOD UREA NITROGEN 13 MG/DL (9-23); CALCIUM LEVEL 8.8 MG/DL (8.5-10.1); CARBON DIOXIDE LEVEL 30 MMOL/L (20-31); CHLORIDE LEVEL 100 MMOL/L (98-107); CK-MB VALUE MASS 2.3 NG/ML (<3.6); CPK CREATINE PHOSPHOKINASE 336 U/L (46-171); CREATININE FOR GFR 1.06 MG/DL (0.70-1.30); GLOMERULAR FILTRATION RATE > 60.0 (>56); GLUCOSE, FASTING 126 MG/DL (60-100); MB/CK RELATIVE INDEX 0.68 (< OR =4); SODIUM LEVEL 137 MMOL/L (136-145)
[2023-10-28 08:56] LABS: THYROID STIMULATING HORMONE 0.931 uIU/ML (0.55-4.78)
[2023-10-28 08:57] LABS: FREE T4 1.04 NG/DL (0.89-1.76)
[2023-10-28] MEDS ORDERED: ISOVUE-370 76% 100ML VIAL As Ordered ONE (09:23)
[2023-10-28 09:43] LABS: CK-MB VALUE MASS 2.3 NG/ML (<3.6)
[2023-10-28 09:45] LABS: MB/CK RELATIVE INDEX 0.73 (< OR =4)
[2023-10-28] MEDS: ALBUTEROL SULFATE 2.5MG/0.5ML INH NEB SOLN INH ONE (09:57)
[2023-10-28] MEDS: methylPREDNISolone 125MG 2ML VIAL IV ONE (09:58)
[2023-10-28] MEDS: IPRATROPIUM 0.5MG/ALBUTEROL 2.5MG INH SOL UD 3ML (DUONEB) NEB ONE (10:48)
[2023-10-28] MEDS ORDERED: MECL-86 PO (13:52)
[2023-10-28] MEDS ORDERED: HOME MED LIST COMPLETE! XX SCH (13:55)
[2023-10-28] MEDS ORDERED: MECLIZINE 25 MG TABLET PO PRN (14:15)
[2023-10-28] MEDS ORDERED: ALBUTEROL SULFATE 2.5MG/0.5ML INH NEB SOLN NEB PRN (14:15)
[2023-10-28] MEDS ORDERED: FUROSEMIDE 100MG/10ML VIAL IV ONE (14:35)
[2023-10-28] MEDS ORDERED: LORazepam 2 MG TAB PO PRN (15:20)
[2023-10-28 15:29] LABS: INR 1.09; PARTIAL THROMBOPLASTIN TIME 25.9 SECONDS (24.8-34.2); PROTHROMBIN TIME 13.8 SECONDS (12.5-14.5)
[2023-10-28 17:00] VITALS: BP 137/71; TEMP 98.4; O2SAT 93
[2023-10-28] MEDS ORDERED: TORSEMIDE (DEMADEX) 50 MG PER 1/2 TAB PO SCH (17:00)
[2023-10-28 17:15] VITALS: BP 137/71
[2023-10-28] MEDS ORDERED: GLUCAGON INJ 1MG VIAL SC PRN (17:55)
[2023-10-28] MEDS ORDERED: GLUCOSE 4 GM CHEW PO PRN (17:55)
[2023-10-28] MEDS ORDERED: DEXTROSE 50% 50ML SYRINGE IV PRN (17:55)
[2023-10-28] MEDS: FOLIC ACID 1MG TAB PO SCH (18:17)
[2023-10-28] MEDS: INSULIN LISPRO (NovoLOG) PER UNIT SC SCH ×2 (18:17→21:00)
[2023-10-28] MEDS: THIAMINE 100 MG TAB PO ONE (18:18)
[2023-10-28] MEDS: MULTIVITAMINS/MINERALS THERAP 1 TAB PO SCH (18:18)
[2023-10-28] MEDS: TORSEMIDE (DEMADEX) 50 MG PER 1/2 TAB PO SCH (18:52)
[2023-10-28 19:00] VITALS: BP 134/77; TEMP 98.4; O2SAT 97
[2023-10-28] MEDS: IPRATROPIUM 0.5MG/ALBUTEROL 2.5MG INH SOL UD 3ML (DUONEB) NEB SCH (19:22)
[2023-10-28] MEDS: PRAVASTATIN 20 MG TAB PO SCH (20:52)
[2023-10-28] MEDS: TAMSULOSIN 0.4 MG CAP PO SCH (20:52)
[2023-10-28] MEDS: THIAMINE 100 MG TAB PO SCH (20:52)
[2023-10-28] MEDS: LATANOPROST 0.005% OPHTH SOLN 2.5 ML OU SCH (20:53)
[2023-10-28] MEDS: FENOFIBRATE 145MG TABLET (TRICOR) PO SCH (20:53)
[2023-10-28] MEDS: HEPARIN SOD (PORCINE) 5000UNITS/ML 1ML VIAL/SYRINGE SQ SCH (20:53)
[2023-10-28] MEDS: oxyCODONE 5MG TAB PO PRN (20:54)
[2023-10-28 22:00] VITALS: BP 139/65
[2023-10-28 23:00] VITALS: BP 139/65; TEMP 97.9; O2SAT 95
[2023-10-29] VITALS (7 sets, daily range): BP systolic 131–147; BP diastolic 60–74; TEMP 97.3–98.3; O2SAT 93–99
[2023-10-29] MEDS: PANTOPRAZOLE 40MG TAB (PROTONIX) PO SCH (08:41)
[2023-10-29] MEDS: SPIRONOLACTONE 50 MG TAB PO SCH (08:41)
[2023-10-29] MEDS ORDERED: SPIRONOLACTONE 50 MG TAB PO SCH (09:00)
[2023-10-29 10:25] LABS: HEMATOCRIT 32.3 % (42.0-52.0); HEMOGLOBIN 10.1 g/dl (13.5-17.5); MEAN CORPUSCULAR HEMOGLOBIN 28.1 pg (27.0-33.0); MEAN CORPUSCULAR HGB CONC 31.3 g/dl (32.0-36.5); PLATELET COUNT, AUTOMATED 225 10^3/uL (150-450); RED BLOOD COUNT 3.59 10^6/uL (4.30-6.10); WHITE BLOOD COUNT 11.7 10^3/uL (4.0-10.0)
[2023-10-29 11:00] LABS: ALBUMIN 3.4 G/DL (3.2-5.2); ALKALINE PHOSPHATASE 43 U/L (46-116); ALT/SGPT 78 U/L (7.0-40); AST/SGOT 47 U/L (<34); BILIRUBIN,TOTAL 0.6 MG/DL (0.3-1.2); BLOOD UREA NITROGEN 18 MG/DL (9-23); CALCIUM LEVEL 9.1 MG/DL (8.5-10.1); CARBON DIOXIDE LEVEL 30 MMOL/L (20-31); CHLORIDE LEVEL 102 MMOL/L (98-107); CREATININE FOR GFR 1.06 MG/DL (0.70-1.30); GLOMERULAR FILTRATION RATE > 60.0 (>56); GLUCOSE, FASTING 207 MG/DL (60-100); POTASSIUM SERUM 4.2 MMOL/L (3.5-5.1); SODIUM LEVEL 138 MMOL/L (136-145); TOTAL PROTEIN 6.2 G/DL (5.7-8.2)
[2023-10-29 11:20] LABS: HEPATITIS B SURFACE ANTIGEN NEGATIVE (NEGATIVE)
[2023-10-29 11:41] LABS: HEPATITIS B CORE ANTIBODY IGM NEGATIVE (NEGATIVE); HEPATITIS C VIRUS ABY INDEX < 0.02 INDEX (<0.8)
[2023-10-29] MEDS: ACETAMINOPHEN TAB 650MG DOSE (2X325MG) PO PRN (19:30)
[2023-10-30 03:30] VITALS: BP 140/67; TEMP 98.2; O2SAT 97
[2023-10-30 06:57] LABS: HEMATOCRIT 32.2 % (42.0-52.0); HEMOGLOBIN 10.1 g/dl (13.5-17.5); MEAN CORPUSCULAR HEMOGLOBIN 28.1 pg (27.0-33.0); MEAN CORPUSCULAR HGB CONC 31.4 g/dl (32.0-36.5); MEAN CORPUSCULAR VOLUME 89.4 fl (80.0-96.0); PLATELET COUNT, AUTOMATED 193 10^3/uL (150-450); WHITE BLOOD COUNT 6.4 10^3/uL (4.0-10.0)
[2023-10-30 07:25] LABS: ALBUMIN 3.5 G/DL (3.2-5.2); ALKALINE PHOSPHATASE 40 U/L (46-116); ALT/SGPT 108 U/L (7.0-40); AST/SGOT 172 U/L (<34); BILIRUBIN,TOTAL 0.4 MG/DL (0.3-1.2); BLOOD UREA NITROGEN 21 MG/DL (9-23); CALCIUM LEVEL 8.9 MG/DL (8.5-10.1); CARBON DIOXIDE LEVEL 31 MMOL/L (20-31); CHLORIDE LEVEL 101 MMOL/L (98-107); CREATININE FOR GFR 1.14 MG/DL (0.70-1.30); GLOMERULAR FILTRATION RATE > 60.0 (>56); GLUCOSE, FASTING 118 MG/DL (60-100); POTASSIUM SERUM 3.7 MMOL/L (3.5-5.1); SODIUM LEVEL 139 MMOL/L (136-145); TOTAL PROTEIN 6.1 G/DL (5.7-8.2)
[2023-10-30 08:15] VITALS: BP 127/73; TEMP 97.9; O2SAT 97
[2023-10-30 12:00] VITALS: BP 143/79; TEMP 97.8; O2SAT 95
[2023-10-30] MEDS: POTASSIUM CHLORIDE 10MEQ SR TABLET PO SCH (12:34)
[2023-10-30 16:00] VITALS: BP 144/98; TEMP 98; O2SAT 97
[2023-10-30 19:43] VITALS: BP 132/87; TEMP 97.2; O2SAT 98
[2023-10-30] MEDS: SPIRONOLACTONE 50 MG TAB PO SCH (21:11)
[2023-10-31 03:59] VITALS: BP 147/84; TEMP 97; O2SAT 95
[2023-10-31 06:15] LABS: HEMATOCRIT 31.6 % (42.0-52.0); MEAN CORPUSCULAR HGB CONC 31.6 g/dl (32.0-36.5); MEAN CORPUSCULAR VOLUME 88.5 fl (80.0-96.0); PLATELET COUNT, AUTOMATED 192 10^3/uL (150-450); RED BLOOD COUNT 3.57 10^6/uL (4.30-6.10); WHITE BLOOD COUNT 5.7 10^3/uL (4.0-10.0)
[2023-10-31 06:44] LABS: ALBUMIN 3.3 G/DL (3.2-5.2); ALKALINE PHOSPHATASE 38 U/L (46-116); ALT/SGPT 148 U/L (7.0-40); AST/SGOT 237 U/L (<34); BILIRUBIN,TOTAL 0.6 MG/DL (0.3-1.2); BLOOD UREA NITROGEN 26 MG/DL (9-23); CALCIUM LEVEL 8.9 MG/DL (8.5-10.1); CARBON DIOXIDE LEVEL 31 MMOL/L (20-31); CHLORIDE LEVEL 102 MMOL/L (98-107); CREATININE FOR GFR 1.26 MG/DL (0.70-1.30); GLOMERULAR FILTRATION RATE > 60.0 (>56); GLUCOSE, FASTING 117 MG/DL (60-100); MAGNESIUM LEVEL 2.2 MG/DL (1.8-2.4); POTASSIUM SERUM 3.9 MMOL/L (3.5-5.1); SODIUM LEVEL 139 MMOL/L (136-145); TOTAL PROTEIN 5.9 G/DL (5.7-8.2)
[2023-10-31 08:00] VITALS: BP 147/75; TEMP 97.1; O2SAT 98
[2023-10-31 11:15] VITALS: O2SAT 96
[2023-10-31] MEDS ORDERED: TORS100T PO (11:30)
[2023-10-31] MEDS ORDERED: ALDA50TA2 PO (11:30)
== END 2023-10-31 12:34 | disposition home health service (06) | DRG 315 ==
LOC: M ED 07:17 → M ED INP 14:06 → M PCU 17:36
PROVIDERS: ADMIT Internal Medicine; ATTEND Internal Medicine
PROC: B246ZZZ Ultrasonography of Right and Left Heart (ICD-10-PCS; principal; 2023-10-28)
DX: I27.81 Cor pulmonale (chronic) (principal); I50.32 Chronic diastolic (congestive) heart failure; J98.11 Atelectasis; I13.0 Hypertensive heart and chronic kidney disease with heart failure and stage 1 through stage 4 chronic kidney disease, or unspecified chronic kidney disease; J90 Pleural effusion, not elsewhere classified; F10.90 Alcohol use, unspecified, uncomplicated; E66.2 Morbid (severe) obesity with alveolar hypoventilation; E78.5 Hyperlipidemia, unspecified; K76.0 Fatty (change of) liver, not elsewhere classified; D64.9 Anemia, unspecified; E29.1 Testicular hypofunction; K22.70 Barrett's esophagus without dysplasia; M54.9 Dorsalgia, unspecified; G89.29 Other chronic pain; K58.9 Irritable bowel syndrome, unspecified; R42 Dizziness and giddiness; R73.03 Prediabetes; N18.9 Chronic kidney disease, unspecified; I95.9 Hypotension, unspecified; I27.20 Pulmonary hypertension, unspecified; K21.9 Gastro-esophageal reflux disease without esophagitis; Z79.890 Hormone replacement therapy; Z79.899 Other long term (current) drug therapy; Z88.0 Allergy status to penicillin; Z88.8 Allergy status to other drugs, medicaments and biological substances; Z11.52 Encounter for screening for COVID-19; R74.01 Elevation of levels of liver transaminase levels

== ENCOUNTER → 2023-11-05 | Outpatient (CLI) | payer MEDICARE ==
[~2023-11-05] MED LIST changes: +CARV6.25 PO; +CEFD1CAP9 PO; +FLON1SPR NARES; +TORS100T PO
== END ==
LOC: M PAIN 09:30
PROVIDERS: ATTEND Nurse Practitioner Family
DX: M51.16 Intervertebral disc disorders with radiculopathy, lumbar region (principal); M48.07 Spinal stenosis, lumbosacral region; M96.1 Postlaminectomy syndrome, not elsewhere classified; G89.29 Other chronic pain; I10 Essential (primary) hypertension; K22.70 Barrett's esophagus without dysplasia; G47.30 Sleep apnea, unspecified; F32.A Depression, unspecified; F41.9 Anxiety disorder, unspecified; M15.9 Polyosteoarthritis, unspecified; K58.9 Irritable bowel syndrome, unspecified; K76.0 Fatty (change of) liver, not elsewhere classified; Z79.891 Long term (current) use of opiate analgesic; Z79.899 Other long term (current) drug therapy; Z88.0 Allergy status to penicillin; Z88.8 Allergy status to other drugs, medicaments and biological substances

== ENCOUNTER 2023-11-12 14:17 | Emergency (ER) | payer MEDICARE ==
[~2023-11-12] VITALS: Ht 175.3 cm; Wt 126.2 kg
[~2023-11-12 14:17] MED LIST changes: -CARV6.25 PO; -CEFD1CAP9 PO; -FLON1SPR NARES
[2023-11-12] MEDS ORDERED: CARV6.25 PO (14:44)
[2023-11-12] MEDS ORDERED: FLON1SPR NARES (14:44)
[2023-11-12 14:56] LABS: BASO # 0.1 10^3/uL (0.0-0.2); BASO % 0.9 % (0.0-1.0); EOS # 0.2 10^3/uL (0.0-0.5); EOS % 2.8 % (0.0-3.0); HEMATOCRIT 35.1 % (42.0-52.0); HEMOGLOBIN 11.4 g/dl (13.5-17.5); LYMPH # 1.1 10^3/uL (1.5-5.0); LYMPH % 17.8 % (24.0-44.0); MEAN CORPUSCULAR HEMOGLOBIN 27.1 pg (27.0-33.0); MEAN CORPUSCULAR HGB CONC 32.5 g/dl (32.0-36.5); MEAN CORPUSCULAR VOLUME 83.6 fl (80.0-96.0); MONO # 0.5 10^3/uL (0.0-0.8); MONO % 8.4 % (2.0-8.0); NEUTROPHILS # 4.5 10^3/uL (1.5-8.5); NEUTROPHILS % 69.6 % (36.0-66.0); PLATELET COUNT, AUTOMATED 214 10^3/uL (150-450); WHITE BLOOD COUNT 6.4 10^3/uL (4.0-10.0)
[2023-11-12 15:09] LABS: INR 1.13; PROTHROMBIN TIME 14.1 SECONDS (12.5-14.5)
[2023-11-12 15:20] LABS: CK-MB VALUE MASS < 1.0 NG/ML (<3.6); LIPASE 70 U/L (12-53)
[2023-11-12 15:22] LABS: ALBUMIN 3.9 G/DL (3.2-5.2); ALKALINE PHOSPHATASE 53 U/L (46-116); ALT/SGPT 105 U/L (7.0-40); AST/SGOT 120 U/L (<34); BILIRUBIN,DIRECT 0.1 MG/DL (<0.4); BILIRUBIN,TOTAL 0.4 MG/DL (0.3-1.2); TOTAL PROTEIN 6.9 G/DL (5.7-8.2)
[2023-11-12 15:23] LABS: CPK CREATINE PHOSPHOKINASE 132 U/L (46-171); MB/CK RELATIVE INDEX 0.75 (< OR =4)
[2023-11-12 16:27] LABS: CK-MB VALUE MASS < 1.0 NG/ML (<3.6); CPK CREATINE PHOSPHOKINASE 129 U/L (46-171); MB/CK RELATIVE INDEX 0.77 (< OR =4)
[2023-11-12] MEDS: oxyCODONE 5MG TAB PO ONE (17:15)
[2023-11-12] MEDS: SPIRONOLACTONE 50 MG TAB PO STA (17:16)
[2023-11-12] MEDS: CARVedilol 6.25 MG TAB PO ONE (17:18)
[2023-11-12] MEDS: TORSEMIDE (DEMADEX) 50 MG PER 1/2 TAB PO STA (17:35)
[2023-11-12] MEDS: FUROSEMIDE 100MG/10ML VIAL IV ONE (17:36)
[2023-11-12 18:58] VITALS: BP 166/95
[2023-11-12 19:01] VITALS: TEMP 97.6; O2SAT 98
[2023-11-12] MEDS ORDERED: CEFD1CAP9 PO (19:01)
== END 2023-11-12 19:25 | disposition home or self-care (01) ==
LOC: M ED 14:17
DX: I11.0 Hypertensive heart disease with heart failure (principal); J01.90 Acute sinusitis, unspecified; E11.9 Type 2 diabetes mellitus without complications; E78.5 Hyperlipidemia, unspecified; K21.9 Gastro-esophageal reflux disease without esophagitis; G47.33 Obstructive sleep apnea (adult) (pediatric); Z79.899 Other long term (current) drug therapy; Z88.0 Allergy status to penicillin; Z88.8 Allergy status to other drugs, medicaments and biological substances
CPT/HCPCS: 70450; 71045; 80047; 80076; 82550; 82553; 83690; 84484; 85025; 85610; 93005; 93041; 94760; 96374; 99285; J1940

== ENCOUNTER 2023-11-16 10:06 | Outpatient (CLI) | payer MEDICARE ==
[~2023-11-16] VITALS: Ht 175.3 cm; Wt 127.0 kg
[~2023-11-16 10:06] MED LIST changes: +CARV6.25 PO; +CEFD1CAP9 PO; +FLON1SPR NARES
[2023-11-16 10:20] VITALS: BP 164/88; O2SAT 97
[2023-11-16] MEDS: FUROSEMIDE 100MG/10ML VIAL IV ONE (10:43)
[2023-11-16 12:00] VITALS: BP 147/64; O2SAT 98
== END 2023-11-16 12:00 ==
LOC: M INFU 10:06
PROVIDERS: ATTEND Internal Medicine Nephrology
DX: R60.9 Edema, unspecified (principal); Z88.0 Allergy status to penicillin; Z88.8 Allergy status to other drugs, medicaments and biological substances
CPT/HCPCS: 96374; J1940

== ENCOUNTER → 2023-12-14 | Outpatient (CLI) | payer MEDICARE | LOC: M PAIN 10:45 | PROVIDERS: ATTEND Nurse Practitioner Family | DX: M50.10 Cervical disc disorder with radiculopathy, unspecified cervical region (principal); G89.29 Other chronic pain; I10 Essential (primary) hypertension; K22.70 Barrett's esophagus without dysplasia; G47.30 Sleep apnea, unspecified; F41.9 Anxiety disorder, unspecified; K58.9 Irritable bowel syndrome, unspecified; M15.9 Polyosteoarthritis, unspecified; Z79.891 Long term (current) use of opiate analgesic; Z79.899 Other long term (current) drug therapy; Z88.0 Allergy status to penicillin; Z88.8 Allergy status to other drugs, medicaments and biological substances ==

== ENCOUNTER → 2024-01-06 | Outpatient (CLI) | payer MEDICARE ==
[~2024-01-06] MED LIST changes: +GABA-1172 PO; -GABA-282 PO; -SIME180C25 PO; +SIME1CAP4 PO; +VANC250C10 PO; -VANC250C3 PO
[2024-01-06 16:31] LABS: HEMATOCRIT 35.8 % (42.0-52.0); HEMOGLOBIN 11.2 g/dl (13.5-17.5)
[2024-01-06 16:52] LABS: PSA SCREENING 0.48 NG/ML (< 4.00)
== END ==
LOC: M LAB 15:47
PROVIDERS: ATTEND Nurse Practitioner Family
DX: E29.1 Testicular hypofunction (principal); Z12.5 Encounter for screening for malignant neoplasm of prostate

== ENCOUNTER 2024-01-24 03:29 | Emergency (ER) | payer MEDICARE ==
[~2024-01-24] VITALS: Ht 175.3 cm; Wt 143.6 kg
[2024-01-24 04:14] LABS: BASO # 0.1 10^3/uL (0.0-0.2); BASO % 0.8 % (0.0-1.0); EOS # 0.2 10^3/uL (0.0-0.5); EOS % 2.8 % (0.0-3.0); HEMATOCRIT 31.8 % (42.0-52.0); HEMOGLOBIN 9.9 g/dl (13.5-17.5); LYMPH # 1.4 10^3/uL (1.5-5.0); MEAN CORPUSCULAR HEMOGLOBIN 24.3 pg (27.0-33.0); MEAN CORPUSCULAR HGB CONC 31.1 g/dl (32.0-36.5); MEAN CORPUSCULAR VOLUME 78.1 fl (80.0-96.0); MONO # 0.9 10^3/uL (0.0-0.8); MONO % 13.5 % (2.0-8.0); NEUTROPHILS % 60.5 % (36.0-66.0); PLATELET COUNT, AUTOMATED 189 10^3/uL (150-450); RED BLOOD COUNT 4.07 10^6/uL (4.30-6.10); WHITE BLOOD COUNT 6.5 10^3/uL (4.0-10.0)
[2024-01-24 04:47] LABS: ALBUMIN 3.4 G/DL (3.2-5.2); ALKALINE PHOSPHATASE 58 U/L (46-116); ALT/SGPT 121 U/L (7.0-40); AST/SGOT 170 U/L (<34); BILIRUBIN,DIRECT 0.1 MG/DL (<0.4); BILIRUBIN,TOTAL 0.4 MG/DL (0.3-1.2); BLOOD UREA NITROGEN 12 MG/DL (9-23); CALCIUM LEVEL 10.1 MG/DL (8.5-10.1); CARBON DIOXIDE LEVEL 32 MMOL/L (20-31); CHLORIDE LEVEL 102 MMOL/L (98-107); CREATININE FOR GFR 0.91 MG/DL (0.70-1.30); GLOMERULAR FILTRATION RATE > 60.0 (>56); GLUCOSE, FASTING 124 MG/DL (60-100); POTASSIUM SERUM 3.3 MMOL/L (3.5-5.1); SODIUM LEVEL 140 MMOL/L (136-145); TOTAL PROTEIN 6.7 G/DL (5.7-8.2)
[2024-01-24] MEDS: FUROSEMIDE 100MG/10ML VIAL IV ONE (09:30)
[2024-01-24] MEDS: POTASSIUM CHLORIDE 10MEQ SR TABLET PO ONE (09:30)
[2024-01-24 10:03] VITALS: BP 165/85; TEMP 97.9; O2SAT 97
== END 2024-01-24 10:15 | disposition home or self-care (01) ==
LOC: M ED 03:29
DX: R06.02 Shortness of breath (principal); Z91.119 Patient's noncompliance with dietary regimen due to unspecified reason; I11.0 Hypertensive heart disease with heart failure; Z86.19 Personal history of other infectious and parasitic diseases; F32.A Depression, unspecified; F41.9 Anxiety disorder, unspecified; Z79.890 Hormone replacement therapy; Z79.899 Other long term (current) drug therapy; Z88.0 Allergy status to penicillin; Z88.8 Allergy status to other drugs, medicaments and biological substances
CPT/HCPCS: 71046; 80048; 80076; 83880; 84484; 85025; 93005; 96374; 99284; J1940

== ENCOUNTER 2024-01-27 09:47 | Outpatient (CLI) | payer MEDICARE ==
[~2024-01-27] VITALS: Ht 175.3 cm; Wt 130.0 kg
[2024-01-27 09:50] VITALS: BP 149/83; O2SAT 98
[2024-01-27] MEDS: FUROSEMIDE 100MG/10ML VIAL IV ONE (10:09)
[2024-01-27 10:40] VITALS: BP 130/78; O2SAT 97
[2024-01-27 10:47] VITALS: BP 130/78; O2SAT 97
== END 2024-01-27 10:50 ==
LOC: M INFU 09:47
PROVIDERS: ATTEND Internal Medicine Nephrology
DX: R60.9 Edema, unspecified (principal); Z88.0 Allergy status to penicillin; Z88.8 Allergy status to other drugs, medicaments and biological substances
CPT/HCPCS: 96374; J1940

== ENCOUNTER → 2024-02-03 | Outpatient (CLI) | payer MEDICARE | LOC: M LAB 13:04 | PROVIDERS: ATTEND Registered Nurse | DX: I50.32 Chronic diastolic (congestive) heart failure (principal) ==

== ENCOUNTER → 2024-02-17 | Outpatient (CLI) | payer MEDICARE ==
[~2024-02-17] MED LIST changes: -VANC250C10 PO; +VANC250C12 PO
[2024-02-17 12:13] LABS: ALBUMIN 3.6 G/DL (3.2-5.2); ALKALINE PHOSPHATASE 67 U/L (40-129); ALT/SGPT 189 U/L (7.0-40); AST/SGOT 497 U/L (<34); BILIRUBIN,TOTAL 0.6 MG/DL (0.3-1.2); BLOOD UREA NITROGEN 13 MG/DL (9-23); CALCIUM LEVEL 9.6 MG/DL (8.5-10.1); CARBON DIOXIDE LEVEL 33 MMOL/L (20-31); CHLORIDE LEVEL 96 MMOL/L (98-107); CREATININE FOR GFR 0.97 MG/DL (0.70-1.30); GLOMERULAR FILTRATION RATE > 60.0 (>56); GLUCOSE, FASTING 141 MG/DL (60-100); POTASSIUM SERUM 3.8 MMOL/L (3.5-5.1); SODIUM LEVEL 136 MMOL/L (136-145); TOTAL PROTEIN 7.3 G/DL (5.7-8.2)
== END ==
LOC: M LAB 11:13
PROVIDERS: ATTEND Registered Nurse
DX: E87.6 Hypokalemia (principal)

== ENCOUNTER → 2024-02-18 | Outpatient (CLI) | payer MEDICARE ==
[~2024-02-18] MED LIST changes: +ISOVUE-M 300 61% 15ML VIAL As Ordered ONE; +LIDOCAINE 1% SDV 30ML VIAL As Ordered ONE; +dexAMETHasone 10MG/1ML VIAL PRES.FREE As Ordered ONE; +diazePAM 5MG TABLET As Ordered ONE; +oxyCODONE 5MG TAB As Ordered ONE
== END ==
LOC: M PAIN 14:15
PROVIDERS: ATTEND Anesthesiology
DX: M51.16 Intervertebral disc disorders with radiculopathy, lumbar region (principal); G89.29 Other chronic pain; I10 Essential (primary) hypertension; K22.70 Barrett's esophagus without dysplasia; G47.30 Sleep apnea, unspecified; F41.9 Anxiety disorder, unspecified; M15.9 Polyosteoarthritis, unspecified; Z79.891 Long term (current) use of opiate analgesic; Z79.899 Other long term (current) drug therapy; Z88.0 Allergy status to penicillin; Z88.8 Allergy status to other drugs, medicaments and biological substances
CPT/HCPCS: 64483; 64484; J0665; J1100; Q9967

== ENCOUNTER → 2024-02-25 | Outpatient (REF) | payer MEDICARE ==
[~2024-02-25] MED LIST changes: -ISOVUE-M 300 61% 15ML VIAL As Ordered ONE; -LIDOCAINE 1% SDV 30ML VIAL As Ordered ONE; -dexAMETHasone 10MG/1ML VIAL PRES.FREE As Ordered ONE; -diazePAM 5MG TABLET As Ordered ONE; -oxyCODONE 5MG TAB As Ordered ONE
[2024-02-25 14:11] LABS: MALB URINE SIEMENS < 3.0 MG/L
== END ==
LOC: M LAB REF 13:12
PROVIDERS: ATTEND Registered Nurse
DX: E11.9 Type 2 diabetes mellitus without complications (principal)

== ENCOUNTER → 2024-03-10 | Outpatient (REF) | payer MEDICARE ==
[2024-03-10 18:59] LABS: FERRITIN 29.5 NG/ML (10.5-307.3); FOLATE 16.1 NG/ML (>5.4); PERCENT SATURATION 5.9 % (19.7-50.0)
== END ==
LOC: M LAB REF 17:31
PROVIDERS: ATTEND Internal Medicine Nephrology
DX: N18.9 Chronic kidney disease, unspecified (principal); D63.1 Anemia in chronic kidney disease

== ENCOUNTER → 2024-03-21 | Outpatient (CLI) | payer MEDICARE ==
[~2024-03-21] MED LIST changes: +ISOVUE-M 300 61% 15ML VIAL As Ordered ONE; +LIDOCAINE 1% SDV 30ML VIAL As Ordered ONE; +dexAMETHasone 10MG/1ML VIAL PRES.FREE As Ordered ONE; +diazePAM 5MG TABLET As Ordered ONE; +oxyCODONE 5MG TAB As Ordered ONE
== END ==
LOC: M PAIN 10:00
PROVIDERS: ATTEND Anesthesiology
DX: M50.13 Cervical disc disorder with radiculopathy, cervicothoracic region (principal); G89.29 Other chronic pain; I10 Essential (primary) hypertension; K22.70 Barrett's esophagus without dysplasia; G47.30 Sleep apnea, unspecified; F41.9 Anxiety disorder, unspecified; Z79.891 Long term (current) use of opiate analgesic; Z79.899 Other long term (current) drug therapy; Z88.0 Allergy status to penicillin; Z88.8 Allergy status to other drugs, medicaments and biological substances
CPT/HCPCS: 62321; J1100; Q9967

== ENCOUNTER → 2024-03-24 | Outpatient (CLI) | payer MEDICARE ==
[~2024-03-24] MED LIST changes: -ISOVUE-M 300 61% 15ML VIAL As Ordered ONE; -LIDOCAINE 1% SDV 30ML VIAL As Ordered ONE; -dexAMETHasone 10MG/1ML VIAL PRES.FREE As Ordered ONE; -diazePAM 5MG TABLET As Ordered ONE; -oxyCODONE 5MG TAB As Ordered ONE
[2024-03-24 13:19] LABS: BASO % 0.7 % (0.0-1.0); EOS # 0.2 10^3/uL (0.0-0.5); EOS % 3.2 % (0.0-3.0); HEMOGLOBIN 9.5 g/dl (13.5-17.5); LYMPH # 1.2 10^3/uL (1.5-5.0); LYMPH % 19.8 % (24.0-44.0); MEAN CORPUSCULAR HEMOGLOBIN 23.9 pg (27.0-33.0); MEAN CORPUSCULAR HGB CONC 30.6 g/dl (32.0-36.5); MEAN CORPUSCULAR VOLUME 78.1 fl (80.0-96.0); MONO # 0.9 10^3/uL (0.0-0.8); MONO % 14.4 % (2.0-8.0); NEUTROPHILS # 3.6 10^3/uL (1.5-8.5); NEUTROPHILS % 61.2 % (36.0-66.0); PLATELET COUNT, AUTOMATED 204 10^3/uL (150-450); RED BLOOD COUNT 3.97 10^6/uL (4.30-6.10); WHITE BLOOD COUNT 5.9 10^3/uL (4.0-10.0)
[2024-03-24 13:37] LABS: ALBUMIN 3.4 G/DL (3.2-5.2); ALKALINE PHOSPHATASE 55 U/L (40-129); ALT/SGPT 103 U/L (7.0-40); AST/SGOT 120 U/L (<34); BILIRUBIN,TOTAL 0.4 MG/DL (0.3-1.2); BLOOD UREA NITROGEN 18 MG/DL (9-23); CALCIUM LEVEL 9.5 MG/DL (8.5-10.1); CARBON DIOXIDE LEVEL 31 MMOL/L (20-31); CHLORIDE LEVEL 100 MMOL/L (98-107); CREATININE FOR GFR 1.03 MG/DL (0.70-1.30); FERRITIN 16.8 NG/ML (10.5-307.3); FOLATE 11.4 NG/ML (>5.4); GLOMERULAR FILTRATION RATE > 60.0 (>56); GLUCOSE, FASTING 150 MG/DL (60-100); IRON (FE) 22 UG/DL (65-175); PERCENT SATURATION 4.5 % (19.7-50.0); POTASSIUM SERUM 3.7 MMOL/L (3.5-5.1); SODIUM LEVEL 139 MMOL/L (136-145); TOTAL IRON BINDING CAPACITY 490 UG/DL (250-425); TOTAL PROTEIN 6.8 G/DL (5.7-8.2); VITAMIN B12 LEVEL 451 PG/ML (211-911)
== END ==
LOC: M LAB 11:58
PROVIDERS: ATTEND Physician Assistant
DX: D64.9 Anemia, unspecified (principal)

== ENCOUNTER 2024-04-04 13:04 | Outpatient (CLI) | payer MEDICARE ==
[~2024-04-04] VITALS: Ht 175.3 cm; Wt 127.2 kg
[~2024-04-04 13:04] MED LIST changes: +ALBUTEROL SULFATE 2.5MG/0.5ML INH NEB SOLN INH PRN; +EPINEPHrine INJ 1 MG/ML 1ML AMP IM PRN; +NS (Normal Saline) 0.9% 1,000 ML IV SCH; +diphenhydrAMINE 50MG/ML VIAL IV PRN; +methylPREDNISolone 125MG 2ML VIAL IV PRN
[2024-04-04 13:30] VITALS: BP 160/80; O2SAT 98
[2024-04-04] MEDS: IRON SUCROSE 300 MG in NS 250 ML IV ONE (13:44)
[2024-04-04 15:30] VITALS: BP 168/89; O2SAT 96
== END 2024-04-04 15:30 ==
LOC: M INFU 13:04
PROVIDERS: ATTEND Internal Medicine Nephrology
DX: E61.1 Iron deficiency (principal); Z88.0 Allergy status to penicillin; Z88.8 Allergy status to other drugs, medicaments and biological substances
CPT/HCPCS: 96365; J1756

== ENCOUNTER 2024-04-11 11:55 | Outpatient (CLI) | payer MEDICARE ==
[~2024-04-11] VITALS: Ht 175.3 cm; Wt 127.3 kg
[~2024-04-11 11:55] MED LIST changes: -NS (Normal Saline) 0.9% 1,000 ML IV SCH
[2024-04-11 12:05] VITALS: BP 160/88; O2SAT 98
[2024-04-11] MEDS: IRON SUCROSE 300 MG in NS 250 ML IV ONE (12:29)
[2024-04-11 14:05] VITALS: BP 147/86; O2SAT 99
== END 2024-04-11 14:05 ==
LOC: M INFU 11:55
PROVIDERS: ATTEND Internal Medicine Nephrology
DX: E61.1 Iron deficiency (principal); Z88.0 Allergy status to penicillin; Z88.8 Allergy status to other drugs, medicaments and biological substances
CPT/HCPCS: 96365; 96366; J1756

== ENCOUNTER 2024-04-18 13:30 | Outpatient (CLI) | payer MEDICARE ==
[~2024-04-18 13:30] MED LIST changes: +NS (Normal Saline) 0.9% 1,000 ML IV SCH
[2024-04-18 13:35] VITALS: BP 148/78; O2SAT 97
[2024-04-18] MEDS: IRON SUCROSE 300 MG in NS 250 ML OVER 90 MIN. IV ONE (13:39)
[2024-04-18 15:16] VITALS: BP 169/92; O2SAT 99
== END 2024-04-18 15:15 | disposition home or self-care (01) ==
LOC: M INFU 13:30
PROVIDERS: ATTEND Internal Medicine Nephrology
DX: E61.1 Iron deficiency (principal); Z88.0 Allergy status to penicillin; Z88.8 Allergy status to other drugs, medicaments and biological substances
CPT/HCPCS: 96365; 96366; J1756

== ENCOUNTER → 2024-04-21 | Outpatient (CLI) | payer MEDICARE ==
[~2024-04-21] MED LIST changes: -ALBUTEROL SULFATE 2.5MG/0.5ML INH NEB SOLN INH PRN; -EPINEPHrine INJ 1 MG/ML 1ML AMP IM PRN; -NS (Normal Saline) 0.9% 1,000 ML IV SCH; -diphenhydrAMINE 50MG/ML VIAL IV PRN; -methylPREDNISolone 125MG 2ML VIAL IV PRN
== END ==
LOC: M PAIN 14:30
PROVIDERS: ATTEND Nurse Practitioner Family
DX: M51.16 Intervertebral disc disorders with radiculopathy, lumbar region (principal); Z79.891 Long term (current) use of opiate analgesic; M50.10 Cervical disc disorder with radiculopathy, unspecified cervical region; G89.29 Other chronic pain; I10 Essential (primary) hypertension; K22.70 Barrett's esophagus without dysplasia; G47.30 Sleep apnea, unspecified; F41.9 Anxiety disorder, unspecified; Z79.899 Other long term (current) drug therapy; Z88.0 Allergy status to penicillin; Z88.8 Allergy status to other drugs, medicaments and biological substances

== ENCOUNTER → 2024-05-11 | Outpatient (REF) | payer MEDICARE ==
[2024-05-11 18:12] LABS: PERCENT SATURATION 6.8 % (19.7-50.0)
[2024-05-11 18:14] LABS: FERRITIN 133.4 NG/ML (10.5-307.3); FOLATE 16.3 NG/ML (>5.4)
== END ==
LOC: M LAB REF 17:06
PROVIDERS: ATTEND Internal Medicine Nephrology
DX: N18.31 Chronic kidney disease, stage 3a (principal); D63.1 Anemia in chronic kidney disease

== ENCOUNTER → 2024-05-18 | Outpatient (CLI) | payer MEDICARE ==
[2024-05-18 08:27] LABS: BASO # 0.1 10^3/uL (0.0-0.2); BASO % 0.9 % (0.0-1.0); EOS # 0.2 10^3/uL (0.0-0.5); EOS % 2.7 % (0.0-3.0); HEMATOCRIT 38.2 % (42.0-52.0); HEMOGLOBIN 11.9 g/dl (13.5-17.5); LYMPH # 1.1 10^3/uL (1.5-5.0); LYMPH % 14.7 % (24.0-44.0); MEAN CORPUSCULAR HEMOGLOBIN 24.9 pg (27.0-33.0); MEAN CORPUSCULAR HGB CONC 31.2 g/dl (32.0-36.5); MEAN CORPUSCULAR VOLUME 80.1 fl (80.0-96.0); MONO # 0.6 10^3/uL (0.0-0.8); MONO % 8.6 % (2.0-8.0); NEUTROPHILS # 5.4 10^3/uL (1.5-8.5); NEUTROPHILS % 72.7 % (36.0-66.0); PLATELET COUNT, AUTOMATED 212 10^3/uL (150-450); RED BLOOD COUNT 4.77 10^6/uL (4.30-6.10); WHITE BLOOD COUNT 7.4 10^3/uL (4.0-10.0)
[2024-05-18 09:11] LABS: TOTAL IRON BINDING CAPACITY 493 UG/DL (250-425)
[2024-05-18 09:12] LABS: ALBUMIN 3.9 G/DL (3.2-5.2); ALKALINE PHOSPHATASE 57 U/L (40-129); ALT/SGPT 146 U/L (7.0-40); AST/SGOT 144 U/L (<34); BILIRUBIN,TOTAL 0.9 MG/DL (0.3-1.2); BLOOD UREA NITROGEN 19 MG/DL (9-23); CALCIUM LEVEL 9.4 MG/DL (8.5-10.1); CARBON DIOXIDE LEVEL 31 MMOL/L (20-31); CHLORIDE LEVEL 97 MMOL/L (98-107); CREATININE FOR GFR 1.07 MG/DL (0.70-1.30); GLOMERULAR FILTRATION RATE > 60.0 (>56); GLUCOSE, FASTING 149 MG/DL (60-100); IRON (FE) 100 UG/DL (65-175); PERCENT SATURATION 20.3 % (19.7-50.0); POTASSIUM SERUM 3.7 MMOL/L (3.5-5.1); SODIUM LEVEL 136 MMOL/L (136-145); TOTAL PROTEIN 7.2 G/DL (5.7-8.2)
[2024-05-18 09:13] LABS: FERRITIN 74.5 NG/ML (10.5-307.3)
[2024-05-18 09:14] LABS: FOLATE 12.8 NG/ML (>5.4); VITAMIN B12 LEVEL 408 PG/ML (211-911)
== END ==
LOC: M LAB 07:54
PROVIDERS: ATTEND Registered Nurse
DX: D64.9 Anemia, unspecified (principal)

== ENCOUNTER → 2024-06-30 | Outpatient (REF) | payer MEDICARE ==
[~2024-06-30] MED LIST changes: +VANC125C13 PO; -VANC125C3 PO
[2024-06-30 19:01] LABS: HEMATOCRIT 36.1 % (42.0-52.0); HEMOGLOBIN 11.5 g/dl (13.5-17.5)
[2024-06-30 19:51] LABS: HEMOGLOBIN A1c 6.5 % (4.0-6.0)
== END ==
LOC: M LAB REF 17:32 → M LABWUC 17:32
PROVIDERS: ATTEND Registered Nurse
DX: E11.9 Type 2 diabetes mellitus without complications (principal); E29.1 Testicular hypofunction

== ENCOUNTER → 2024-08-16 | Outpatient (CLI) | payer MEDICARE ==
[2024-08-16 15:08] LABS: HEMOGLOBIN A1c 6.3 % (4.0-6.0)
== END ==
LOC: M WUC 11:46
PROVIDERS: ATTEND Registered Nurse
DX: E11.9 Type 2 diabetes mellitus without complications (principal)

== ENCOUNTER → 2024-08-22 | Outpatient (REF) | payer MEDICARE ==
[2024-08-23 18:07] LABS: PERCENT SATURATION 7.3 % (19.7-50.0)
[2024-08-23 18:09] LABS: FERRITIN 37.2 NG/ML (10.5-307.3)
== END ==
LOC: M LAB REF 17:29
PROVIDERS: ATTEND Internal Medicine Nephrology
DX: N18.9 Chronic kidney disease, unspecified (principal); D63.1 Anemia in chronic kidney disease

== ENCOUNTER 2024-10-03 11:22 | Inpatient (IN) | payer MEDICARE ==
[~2024-10-03] VITALS: Ht 175.3 cm; Wt 130.9 kg
[~2024-10-03 11:22] MED LIST changes: +AMLO2.5T3 PO; +CALC500T60 PO; +CEFP200T PO; +DICL100G10 TOP; +EPLE50TA12 PO; +FAMO20TA PO; +FOLI1TAB11 PO; +HYDR50TA70 PO; +LIDO4CRE12 TOP; +MELA5TAB21 PO; +METO10TA2 PO; +METR-265 PO; +NARC1SPR NARES; +POLY17PO18 PO; +POTA-298 PO; -PRAV20TA2 PO; +PRAV20TA78 PO; +SENN-186 PO; +SIME80CH5 PO; +SUBO4MIS SL; +THIA100TA PO
[2024-10-03 12:33] LABS: VENOUS BASE EXCESS 5.2 (-2.0-2.0); VENOUS HCO3 29.3 MMOL/L (23.0-27.0); VENOUS O2 SATURATION 86.8 % (60.0-80.0); VENOUS PARTIAL PRESSURE CO2 41.0 mmHg (38.0-50.0); VENOUS PARTIAL PRESSURE O2 53.2 mmHg (30.0-50.0); VENOUS PH 7.472 UNITS (7.330-7.430); VENOUS STANDARD HCO3 28.9 MMOL/L; VENOUS TOTAL CO2 30.6 MMOL/L (24.0-28.0)
[2024-10-03 12:42] LABS: BASO # 0.1 10^3/uL (0.0-0.2); BASO % 0.7 % (0.0-1.0); EOS # 0.2 10^3/uL (0.0-0.5); EOS % 2.0 % (0.0-3.0); LYMPH # 1.0 10^3/uL (1.5-5.0); LYMPH % 11.6 % (24.0-44.0); MONO # 0.7 10^3/uL (0.0-0.8); MONO % 9.0 % (2.0-8.0); NEUTROPHILS # 6.2 10^3/uL (1.5-8.5); NEUTROPHILS % 76.1 % (36.0-66.0); PLATELET COUNT, AUTOMATED 255 10^3/uL (150-450)
[2024-10-03] MEDS ORDERED: HYDR50TA70 PO (13:10)
[2024-10-03 13:13] LABS: ALT/SGPT 96 U/L (7.0-40); AST/SGOT 362 U/L (<34); CALCIUM LEVEL 9.6 MG/DL (8.5-10.1); CARBON DIOXIDE LEVEL 35 MMOL/L (20-31); CHLORIDE LEVEL 96 MMOL/L (98-107); CREATININE FOR GFR 0.87 MG/DL (0.70-1.30); GLOMERULAR FILTRATION RATE > 90.0 (>56); POTASSIUM SERUM 3.7 MMOL/L (3.5-5.1); SODIUM LEVEL 144 MMOL/L (136-145)
[2024-10-03] MEDS ORDERED: HOME MED LIST COMPLETE! XX SCH (13:15)
[2024-10-03] MEDS ORDERED: ISOVUE-370 76% 100 ML VIAL As Ordered ONE (14:20)
[2024-10-03 15:24] LABS: ETHYL ALCOHOL (ETHANOL) < 0.003 % (0.000-0.010); MAGNESIUM LEVEL 1.2 MG/DL (1.8-2.4)
[2024-10-03 15:48] LABS: AMPHETAMINES LEVEL URINE NEGATIVE (NEGATIVE)
[2024-10-03 15:49] LABS: BARBITURATES URINE NEGATIVE (NEGATIVE); CANNABINOIDS URINE NEGATIVE (NEGATIVE); COCAINE METABOLITE URINE NEGATIVE (NEGATIVE); METHADONE URINE NEGATIVE (NEGATIVE); OPIATES URINE NEGATIVE (NEGATIVE); PHENCYCLIDINE URINE NEGATIVE (NEGATIVE)
[2024-10-03 15:50] LABS: BENZODIAZEPINES URINE POSITIVE (NEGATIVE)
[2024-10-03] MEDS: MAG SULF 1GM/100ML (MAG RUN) 1 GM in IV 1 EA IV ONE ×2 (16:08→17:14)
[2024-10-03] MEDS: BUPRENORPHINE/NALOXONE 2-0.5MG SUBLINGUAL TABLET(SUBOXONE) SL STA (16:09)
[2024-10-03] MEDS ORDERED: GLUCOSE 4 GM CHEW PO PRN (17:20)
[2024-10-03] MEDS ORDERED: DEXTROSE 50% 50 ML SYRINGE IV PRN (17:20)
[2024-10-03] MEDS ORDERED: GLUCAGON INJ 1 MG VIAL SC PRN (17:20)
[2024-10-03] MEDS: INSULIN LISPRO (NovoLOG) PER UNIT SC SCH ×2 (17:30→20:48)
[2024-10-03 17:37] LABS: FREE T4 1.20 NG/DL (0.89-1.76)
[2024-10-03] MEDS: MAG SULF 1GM/100ML (MAG RUN) 1 GM in IV 1 EA IV SCH (18:11)
[2024-10-03] MEDS: LATANOPROST 0.005% OPHTH SOLN 2.5 ML OU SCH (19:05)
[2024-10-03 20:28] VITALS: BP 152/86
[2024-10-03 20:30] VITALS: BP 152/86; TEMP 97; O2SAT 95
[2024-10-03] MEDS: MAGNESIUM OXIDE 400 MG TAB PO SCH (20:47)
[2024-10-03] MEDS: ONDANSETRON 4MG ORAL DISINTEGRATING TAB PO PRN (20:47)
[2024-10-03] MEDS: TAMSULOSIN 0.4 MG CAP PO SCH (20:47)
[2024-10-03] MEDS: MAALOX 30 ML SUSP *UDC PO PRN (20:47)
[2024-10-03] MEDS: FIDAXOMICIN 200 MG TAB PO SCH (20:47)
[2024-10-04] MEDS: LIDOCAINE 5% PATCH TD PRN (01:42)
[2024-10-04 03:43] VITALS: BP 114/70; TEMP 97.1; O2SAT 94
[2024-10-04 04:00] VITALS: BP 114/70
[2024-10-04 06:55] LABS: CALCIUM LEVEL 8.9 MG/DL (8.5-10.1); CARBON DIOXIDE LEVEL 36.0 MMOL/L (20-31); CHLORIDE LEVEL 94.0 MMOL/L (98-107); CREATININE FOR GFR 1.1 MG/DL (0.70-1.30); GLOMERULAR FILTRATION RATE 77.3 (>56); MAGNESIUM LEVEL 1.9 MG/DL (1.8-2.4); POTASSIUM SERUM 3.3 MMOL/L (3.5-5.1); SODIUM LEVEL 142.0 MMOL/L (136-145)
[2024-10-04 07:37] LABS: ESTIMATED AVERAGE GLUCOSE 114.0 MG/DL (60-110)
[2024-10-04] MEDS: KCL 10MEQ/100ML SWI (KRUN) 10 MEQ in IV 1 EA IV SCH (08:25)
[2024-10-04] MEDS: POTASSIUM CHLORIDE 10MEQ SR TABLET PO SCH (08:27)
[2024-10-04] MEDS: BUPRENORPHINE/NALOXONE 2-0.5MG SUBLINGUAL TABLET(SUBOXONE) SL SCH (08:27)
[2024-10-04] MEDS: TORSEMIDE 100 MG TAB PO SCH (08:28)
[2024-10-04] MEDS: THIAMINE 100 MG TAB PO SCH (08:28)
[2024-10-04] MEDS: FOLIC ACID 1 MG TAB PO SCH (08:28)
[2024-10-04] MEDS: MULTIVITAMINS/MINERALS THERAP 1 TAB PO SCH (08:29)
[2024-10-04] MEDS: HEPARIN SOD 5000 UNITS/ML 1 ML VIAL/SYRINGE SC SCH (08:32)
[2024-10-04 12:00] VITALS: BP 140/80; TEMP 98.1; O2SAT 95
[2024-10-04 20:00] VITALS: BP 144/85; TEMP 97; O2SAT 97
[2024-10-05 03:38] VITALS: BP 130/77; TEMP 97.3; O2SAT 95
[2024-10-05 04:00] VITALS: BP 130/77
[2024-10-05 06:54] LABS: ALT/SGPT 68.0 U/L (7.0-40); AST/SGOT 264.0 U/L (<34); CALCIUM LEVEL 8.4 MG/DL (8.5-10.1); CARBON DIOXIDE LEVEL 32.0 MMOL/L (20-31); CHLORIDE LEVEL 99.0 MMOL/L (98-107); CREATININE FOR GFR 1.02 MG/DL (0.70-1.30); GLOMERULAR FILTRATION RATE 84.7 (>56); MAGNESIUM LEVEL 1.8 MG/DL (1.8-2.4); POTASSIUM SERUM 3.6 MMOL/L (3.5-5.1); SODIUM LEVEL 143.0 MMOL/L (136-145)
[2024-10-05 08:00] VITALS: BP 133/77
[2024-10-05] MEDS: LIDOCAINE 5% PATCH TD SCH (08:20)
[2024-10-05 08:24] VITALS: BP 133/77
[2024-10-05] MEDS ORDERED: RISATAB3 PO (11:06)
[2024-10-05] MEDS ORDERED: LIDO1ADH93 TOP (11:06)
[2024-10-05] MEDS ORDERED: MAGN400T33 PO (11:06)
[2024-10-05] MEDS ORDERED: FIDA200TA PO (11:06)
[2024-10-05 12:00] VITALS: BP 115/75; TEMP 97; O2SAT 94
[2024-10-05] MEDS: FIDAXOMICIN 200 MG TAB PO SCH (12:26)
== END 2024-10-05 13:45 | disposition home or self-care (01) | DRG 392 ==
LOC: M ED 11:22 → M ED INP 17:00 → M MSPAV 20:22
PROVIDERS: ADMIT Student in an Organized Health Care Education/Training Program; ATTEND Student in an Organized Health Care Education/Training Program
DX: K58.0 Irritable bowel syndrome with diarrhea (principal); I50.32 Chronic diastolic (congestive) heart failure; E87.20 Acidosis, unspecified; Z68.41 Body mass index [BMI] 40.0-44.9, adult; R53.1 Weakness; I11.0 Hypertensive heart disease with heart failure; E66.01 Morbid (severe) obesity due to excess calories; G47.33 Obstructive sleep apnea (adult) (pediatric); E78.5 Hyperlipidemia, unspecified; K76.0 Fatty (change of) liver, not elsewhere classified; D64.9 Anemia, unspecified; K22.70 Barrett's esophagus without dysplasia; G89.29 Other chronic pain; E87.6 Hypokalemia; M54.9 Dorsalgia, unspecified; R73.03 Prediabetes; E83.42 Hypomagnesemia; I89.0 Lymphedema, not elsewhere classified; F10.10 Alcohol abuse, uncomplicated; Z79.899 Other long term (current) drug therapy; Z88.0 Allergy status to penicillin; Z88.8 Allergy status to other drugs, medicaments and biological substances; Z87.891 Personal history of nicotine dependence

== ENCOUNTER 2024-10-11 05:35 | Emergency (ER) | payer MEDICARE ==
[~2024-10-11] VITALS: Ht 175.3 cm; Wt 134.1 kg
[~2024-10-11 05:35] MED LIST changes: +LIDO1ADH93 TOP; +MAGN400T33 PO
[2024-10-11 07:08] LABS: BASO # 0.0 10^3/uL (0.0-0.2); BASO % 0.4 % (0.0-1.0); EOS # 0.2 10^3/uL (0.0-0.5); EOS % 2.1 % (0.0-3.0); LYMPH # 1.1 10^3/uL (1.5-5.0); LYMPH % 11.9 % (24.0-44.0); MONO # 1.3 10^3/uL (0.0-0.8); MONO % 14.5 % (2.0-8.0); NEUTROPHILS # 6.4 10^3/uL (1.5-8.5); NEUTROPHILS % 70.4 % (36.0-66.0); PLATELET COUNT, AUTOMATED 187 10^3/uL (150-450)
[2024-10-11 08:04] LABS: CALCIUM LEVEL 8.3 MG/DL (8.5-10.1); CARBON DIOXIDE LEVEL 30 MMOL/L (20-31); CHLORIDE LEVEL 96 MMOL/L (98-107); CREATININE FOR GFR 0.93 MG/DL (0.70-1.30); GLOMERULAR FILTRATION RATE > 90.0 (>56); POTASSIUM SERUM 4.2 MMOL/L (3.5-5.1); SODIUM LEVEL 140 MMOL/L (136-145)
[2024-10-11 08:05] LABS: CK-MB VALUE MASS 1.6 NG/ML (<3.6)
[2024-10-11 08:09] LABS: CPK CREATINE PHOSPHOKINASE 208 U/L (46-171); MB/CK RELATIVE INDEX 0.76 (< OR =4)
[2024-10-11 10:52] VITALS: BP 119/57
[2024-10-11] MEDS: FUROSEMIDE 40 MG/4 ML VIAL IV ONE (10:52)
[2024-10-11] MEDS: MAALOX 30 ML SUSP *UDC PO ONE (10:52)
[2024-10-11 12:15] VITALS: BP 125/59; O2SAT 97
[2024-10-11 12:27] LABS: CPK CREATINE PHOSPHOKINASE 221.0 U/L (46-171)
[2024-10-11 12:40] LABS: CK-MB VALUE MASS 2.2 NG/ML (<3.6); MB/CK RELATIVE INDEX 0.99 (< OR =4)
[2024-10-11 12:45] VITALS: TEMP 97
== END 2024-10-11 12:46 | disposition home or self-care (01) ==
LOC: M ED 05:35
DX: I87.2 Venous insufficiency (chronic) (peripheral) (principal); E66.01 Morbid (severe) obesity due to excess calories; I27.20 Pulmonary hypertension, unspecified; Z87.19 Personal history of other diseases of the digestive system; G47.33 Obstructive sleep apnea (adult) (pediatric); F17.200 Nicotine dependence, unspecified, uncomplicated; Z79.899 Other long term (current) drug therapy; Z88.0 Allergy status to penicillin; Z88.8 Allergy status to other drugs, medicaments and biological substances
CPT/HCPCS: 71045; 80048; 82550; 82553; 84484; 85025; 93005; 93041; 94760; 96374; 99285; J1938

== ENCOUNTER 2024-10-19 13:16 | Emergency (ER) | payer MEDICARE ==
[~2024-10-19] VITALS: Ht 175.3 cm; Wt 125.1 kg
[2024-10-19] MEDS ORDERED: MAGN400T35 PO (13:49)
[2024-10-19] MEDS ORDERED: CHOL125C6 PO (13:49)
[2024-10-19 14:07] LABS: BASO # 0.1 10^3/uL (0.0-0.2); BASO % 0.6 % (0.0-1.0); EOS # 0.3 10^3/uL (0.0-0.5); EOS % 3.0 % (0.0-3.0); LYMPH # 1.1 10^3/uL (1.5-5.0); LYMPH % 13.2 % (24.0-44.0); MONO # 0.9 10^3/uL (0.0-0.8); MONO % 11.1 % (2.0-8.0); NEUTROPHILS # 5.9 10^3/uL (1.5-8.5); NEUTROPHILS % 71.6 % (36.0-66.0); PLATELET COUNT, AUTOMATED 140 10^3/uL (150-450)
[2024-10-19] MEDS ORDERED: ISOVUE-370 76% 100 ML VIAL As Ordered ONE (14:26)
[2024-10-19 14:31] LABS: CK-MB VALUE MASS 2.4 NG/ML (<3.6)
[2024-10-19 14:33] LABS: ALT/SGPT 36 U/L (7.0-40); AST/SGOT 161 U/L (<34); CALCIUM LEVEL 9.2 MG/DL (8.5-10.1); CARBON DIOXIDE LEVEL 29 MMOL/L (20-31); CHLORIDE LEVEL 97 MMOL/L (98-107); CPK CREATINE PHOSPHOKINASE 192 U/L (46-171); CREATININE FOR GFR 1.14 MG/DL (0.70-1.30); GLOMERULAR FILTRATION RATE 74.1 (>56); MB/CK RELATIVE INDEX 1.25 (< OR =4); POTASSIUM SERUM 3.6 MMOL/L (3.5-5.1); SODIUM LEVEL 137 MMOL/L (136-145)
[2024-10-19] MEDS: ACETAMINOPHEN *IV* 1,000 MG in IV 1 EA IV ONE (15:23)
[2024-10-19 15:41] LABS: KETONE, URINE AUTO RFX NEGATIVE (NEGATIVE); LEUKOCYTE ESTERASE UR AUTO RFX NEGATIVE (NEGATIVE); NITRITE, URINE AUTO RFX NEGATIVE (NEGATIVE); RBC, URINE AUTO RFX 0 /HPF (0-3); SQUAM EPITHELIAL CELL UR AURFX 0 /HPF (0-6); WBC, URINE AUTO RFX 0 /HPF (0-3)
[2024-10-19 15:46] LABS: CK-MB VALUE MASS 2.3 NG/ML (<3.6)
[2024-10-19 15:48] LABS: CPK CREATINE PHOSPHOKINASE 167.0 U/L (46-171); MB/CK RELATIVE INDEX 1.37 (< OR =4)
[2024-10-19 16:31] VITALS: BP 175/72; TEMP 98.6; O2SAT 96
[2024-10-19] MEDS ORDERED: ONDA-282 PO (16:35)
[2024-10-20] MEDS ORDERED: CARA1TAB6 PO (17:16)
== END 2024-10-19 16:48 | disposition home or self-care (01) ==
LOC: M ED 13:16
DX: R07.9 Chest pain, unspecified (principal); R10.9 Unspecified abdominal pain; I10 Essential (primary) hypertension; E78.5 Hyperlipidemia, unspecified; Z87.19 Personal history of other diseases of the digestive system; Z88.0 Allergy status to penicillin; Z88.8 Allergy status to other drugs, medicaments and biological substances; Z79.899 Other long term (current) drug therapy
CPT/HCPCS: 71045; 71275; 74177; 80047; 80048; 80076; 81001; 82550; 82553; 83605; 83690; 84484; 85025; 93005; 93041; 94760; 96365; 99285; J0131; Q9967

== ENCOUNTER 2024-10-20 12:24 | Emergency (ER) | payer MEDICARE ==
[~2024-10-20] VITALS: Ht 175.3 cm; Wt 126.0 kg
[~2024-10-20 12:24] MED LIST changes: +CHOL125C6 PO; +MAGN400T35 PO
[2024-10-20 13:28] LABS: BASO # 0.1 10^3/uL (0.0-0.2); BASO % 0.8 % (0.0-1.0); EOS # 0.2 10^3/uL (0.0-0.5); EOS % 3.5 % (0.0-3.0); LYMPH # 0.9 10^3/uL (1.5-5.0); LYMPH % 14.4 % (24.0-44.0); MONO # 0.8 10^3/uL (0.0-0.8); MONO % 12.8 % (2.0-8.0); NEUTROPHILS # 4.3 10^3/uL (1.5-8.5); NEUTROPHILS % 68.2 % (36.0-66.0); PLATELET COUNT, AUTOMATED 134 10^3/uL (150-450)
[2024-10-20 13:45] LABS: INR 1.14
[2024-10-20 13:54] LABS: ALT/SGPT 40 U/L (7.0-40); AST/SGOT 156 U/L (<34); CALCIUM LEVEL 9.0 MG/DL (8.3-10.6); CARBON DIOXIDE LEVEL 28 MMOL/L (20-31); CHLORIDE LEVEL 97 MMOL/L (98-107); CREATININE FOR GFR 1.15 MG/DL (0.70-1.30); GLOMERULAR FILTRATION RATE 72.9 (>49); POTASSIUM SERUM 3.7 MMOL/L (3.5-5.1); SODIUM LEVEL 138 MMOL/L (136-145)
[2024-10-20] MEDS ORDERED: ISOVUE-370 76% 100 ML VIAL As Ordered ONE (14:42)
[2024-10-20 14:53] LABS: MAGNESIUM LEVEL 2.0 MG/DL (1.8-2.4)
[2024-10-20] MEDS: PANTOPRAZOLE 40MG VIAL IV ONE (15:17)
[2024-10-20] MEDS: NS (Normal Saline) 0.9% 1,000 ML IV ONE (15:18)
[2024-10-20 15:31] LABS: INR 1.1
[2024-10-20 15:38] LABS: CK-MB VALUE MASS 1.4 NG/ML (<3.6)
[2024-10-20 15:39] LABS: CPK CREATINE PHOSPHOKINASE 120.0 U/L (46-171); MB/CK RELATIVE INDEX 1.16 (< OR =4)
[2024-10-20 16:18] LABS: KETONE, URINE AUTO RFX NEGATIVE (NEGATIVE); LEUKOCYTE ESTERASE UR AUTO RFX NEGATIVE (NEGATIVE); NITRITE, URINE AUTO RFX NEGATIVE (NEGATIVE); RBC, URINE AUTO RFX 0 /HPF (0-3); SQUAM EPITHELIAL CELL UR AURFX 0 /HPF (0-6); WBC, URINE AUTO RFX 1 /HPF (0-3)
[2024-10-20 16:18] LABS: ETHYL ALCOHOL (ETHANOL) < 0.003 % (0.000-0.010)
[2024-10-20 16:19] LABS: SALICYLATE LEVEL < 3.0 MG/DL (<30)
[2024-10-20 16:51] LABS: AMPHETAMINES LEVEL URINE NEGATIVE (NEGATIVE); BARBITURATES URINE NEGATIVE (NEGATIVE); CANNABINOIDS URINE NEGATIVE (NEGATIVE); COCAINE METABOLITE URINE NEGATIVE (NEGATIVE); METHADONE URINE NEGATIVE (NEGATIVE); OPIATES URINE NEGATIVE (NEGATIVE); PHENCYCLIDINE URINE NEGATIVE (NEGATIVE)
[2024-10-20 16:54] LABS: BENZODIAZEPINES URINE POSITIVE (NEGATIVE)
[2024-10-20 17:16] VITALS: BP 150/80
[2024-10-20] MEDS ORDERED: CARA1TAB6 PO (17:16)
[2024-10-20 17:24] VITALS: TEMP 97.7; O2SAT 99
[2024-10-20] MEDS: ACETAMINOPHEN *IV* 1,000 MG in IV 1 EA IV ONE (17:25)
== END 2024-10-20 17:50 | disposition home or self-care (01) ==
LOC: M ED 12:24
DX: R10.9 Unspecified abdominal pain (principal); M54.9 Dorsalgia, unspecified; K57.30 Diverticulosis of large intestine without perforation or abscess without bleeding; K21.9 Gastro-esophageal reflux disease without esophagitis; M48.061 Spinal stenosis, lumbar region without neurogenic claudication; M51.26 Other intervertebral disc displacement, lumbar region; M51.360 Other intervertebral disc degeneration, lumbar region with discogenic back pain only; R16.2 Hepatomegaly with splenomegaly, not elsewhere classified; K42.0 Umbilical hernia with obstruction, without gangrene; E11.9 Type 2 diabetes mellitus without complications; G47.30 Sleep apnea, unspecified; F41.9 Anxiety disorder, unspecified; F32.A Depression, unspecified; Z86.19 Personal history of other infectious and parasitic diseases; Z79.899 Other long term (current) drug therapy; Z88.0 Allergy status to penicillin; Z88.8 Allergy status to other drugs, medicaments and biological substances
CPT/HCPCS: 71045; 72131; 74174; 80048; 80076; 80143; 80307; 81001; 82077; 82550; 82553; 83605; 83690; 83735; 84484; 85025; 85610; 85730; 86850; 86900; 86901; 87040; 93005; 93041; 96361; 96374; 96375; 99285; J0131; J2470; Q9967

== ENCOUNTER → 2024-11-09 | Outpatient (CLI) | payer MEDICARE ==
[~2024-11-09] MED LIST changes: +CARA1TAB6 PO
[2024-11-09 10:12] LABS: BASO # 0.1 10^3/uL (0.0-0.2); BASO % 0.8 % (0.0-1.0); EOS # 0.3 10^3/uL (0.0-0.5); EOS % 4.1 % (0.0-3.0); LYMPH # 1.1 10^3/uL (1.5-5.0); LYMPH % 15.4 % (24.0-44.0); MONO # 0.9 10^3/uL (0.0-0.8); MONO % 12.7 % (2.0-8.0); NEUTROPHILS # 4.9 10^3/uL (1.5-8.5); NEUTROPHILS % 66.7 % (36.0-66.0); PLATELET COUNT, AUTOMATED 191 10^3/uL (150-450)
[2024-11-09 10:23] LABS: ERYTHROCYTE SEDIMENTATION RATE 26 mm/hr (0-20)
[2024-11-09 10:44] LABS: C REACTIVE PROTEIN QUANTITATIV 0.74 MG/DL (<1.0); IRON (FE) 65 UG/DL (65-175)
[2024-11-09 10:45] LABS: ALT/SGPT 46 U/L (7.0-40); AST/SGOT 91 U/L (<34); CALCIUM LEVEL 9.7 MG/DL (8.3-10.6); CARBON DIOXIDE LEVEL 34 MMOL/L (20-31); CHLORIDE LEVEL 94 MMOL/L (98-107); CREATININE FOR GFR 1.16 MG/DL (0.70-1.30); GLOMERULAR FILTRATION RATE 72.1 (>49); MAGNESIUM LEVEL 1.7 MG/DL (1.8-2.4); PERCENT SATURATION 12.9 % (19.7-50.0); POTASSIUM SERUM 3.5 MMOL/L (3.5-5.1); SODIUM LEVEL 141 MMOL/L (136-145); TOTAL 25(OH) VITAMIN D 46.2 NG/ML (20.0-100.0)
[2024-11-09 10:46] LABS: VITAMIN B12 LEVEL 377 PG/ML (211-911)
== END ==
LOC: M LAB 08:25
PROVIDERS: ATTEND Registered Nurse
DX: R51.9 Headache, unspecified (principal); R53.1 Weakness; G89.29 Other chronic pain; D50.9 Iron deficiency anemia, unspecified

== ENCOUNTER 2024-11-28 06:00 | Inpatient (IN) | payer MEDICARE ==
[2024-11-26 14:55] VITALS: BP 182/104; TEMP 97.5; O2SAT 97
[~2024-11-28] VITALS: Ht 175.3 cm; Wt 124.9 kg
[2024-11-28 08:19] LABS: ETHYL ALCOHOL (ETHANOL) 0.099 % (0.000-0.010)
[2024-11-28 08:26] LABS: PLATELET COUNT, AUTOMATED 132 10^3/uL (150-450)
[2024-11-28 08:39] LABS: ALT/SGPT 46 U/L (7.0-40); AST/SGOT 113 U/L (<34); CALCIUM LEVEL 9.4 MG/DL (8.3-10.6); CARBON DIOXIDE LEVEL 32 MMOL/L (20-31); CHLORIDE LEVEL 96 MMOL/L (98-107); CREATININE FOR GFR 0.80 MG/DL (0.70-1.30); GLOMERULAR FILTRATION RATE > 90.0 (>49); POTASSIUM SERUM 3.5 MMOL/L (3.5-5.1); SODIUM LEVEL 141 MMOL/L (136-145)
[2024-11-28] MEDS: PANTOPRAZOLE 40MG TAB PO ONE (09:26)
[2024-11-28] MEDS: SUCRALFATE 1 GM TAB PO ONE (09:26)
[2024-11-28] MEDS ORDERED: ISOVUE-370 76% 100 ML VIAL As Ordered ONE (09:50)
[2024-11-28] MEDS ORDERED: VENTAER INH (10:52)
[2024-11-28] MEDS ORDERED: HOME MED LIST COMPLETE! XX SCH (10:55)
[2024-11-28] MEDS ORDERED: PILL CUTTER 1 EACH XX ONE (13:11)
[2024-11-28] MEDS: amLODIPine 5 MG TAB PO ONE (13:19)
[2024-11-28] MEDS: TORSEMIDE 100 MG TAB PO ONE (13:20)
[2024-11-28] MEDS ORDERED: MULTIVITAMIN -ADULT INJECTION 10 ML, THIAMINE INJection 100 MG, FOLIC ACID 1 MG in NS (... IV ONE (14:05)
[2024-11-28] MEDS ORDERED: LR 1,000 ML IV ONE (14:05)
[2024-11-28] MEDS ORDERED: ALBUTEROL 90 MCG/ACT 8 GM HFA INHALER INH PRN (14:10)
[2024-11-28] MEDS ORDERED: NITROGLYCERIN 0.4 MG SUBL TABLET SL PRN (14:10)
[2024-11-28] MEDS ORDERED: amLODIPine 10 MG TAB PO ONE (14:10)
[2024-11-28] MEDS: THIAMINE 100 MG TAB PO SCH (14:32)
[2024-11-28] MEDS: FOLIC ACID 1 MG TAB PO SCH (14:32)
[2024-11-28] MEDS: MULTIVITAMINS/MINERALS THERAP 1 TAB PO SCH (14:32)
[2024-11-28] MEDS: OXAZEPAM 15MG CAP PO ONE (14:32)
[2024-11-28 14:42] VITALS: BP 182/104; TEMP 97.5; O2SAT 97
[2024-11-28] MEDS: **hydrALAZINE HCL** 25 MG TAB PO ONE (15:33)
[2024-11-28] MEDS: BUPRENORPHINE/NALOXONE 2-0.5MG SUBLINGUAL TABLET(SUBOXONE) PO SCH (15:34)
[2024-11-28] MEDS: FUROSEMIDE 40 MG/4 ML VIAL IV ONE (15:34)
[2024-11-28] MEDS: MORPHINE 2 MG/ML 1 ML VIAL IV ONE (15:46)
[2024-11-28] MEDS ORDERED: BUPRENORPHINE/NALOXONE 2-0.5MG SUBLINGUAL TABLET(SUBOXONE) SL SCH (16:00)
[2024-11-28 16:08] LABS: AMPHETAMINES LEVEL URINE NEGATIVE (NEGATIVE); BARBITURATES URINE NEGATIVE (NEGATIVE); BENZODIAZEPINES URINE NEGATIVE (NEGATIVE); COCAINE METABOLITE URINE NEGATIVE (NEGATIVE); METHADONE URINE NEGATIVE (NEGATIVE); OPIATES URINE NEGATIVE (NEGATIVE); PHENCYCLIDINE URINE NEGATIVE (NEGATIVE)
[2024-11-28 16:09] LABS: CANNABINOIDS URINE NEGATIVE (NEGATIVE)
[2024-11-28 17:10] LABS: ESTIMATED AVERAGE GLUCOSE 137.0 MG/DL (60-110)
[2024-11-28 17:36] VITALS: BP 167/97
[2024-11-28] MEDS ORDERED: MORPHINE 2 MG/ML 1 ML VIAL IV PRN (18:00)
[2024-11-28] MEDS: PERCOCET 5MG/325MG TAB PO PRN (18:15)
[2024-11-28 18:48] LABS: CK-MB VALUE MASS 1.4 NG/ML (<3.6)
[2024-11-28 18:53] LABS: CPK CREATINE PHOSPHOKINASE 160.0 U/L (46-171); MB/CK RELATIVE INDEX 0.87 (< OR =4)
[2024-11-28 19:50] VITALS: BP 166/97; TEMP 97.3; O2SAT 96
[2024-11-28] MEDS: SUCRALFATE 1 GM TAB PO SCH (20:23)
[2024-11-28] MEDS: FENOFIBRATE 145 MG TABLET PO SCH (20:24)
[2024-11-28] MEDS: PRAVASTATIN 20 MG TAB PO SCH (20:24)
[2024-11-28] MEDS: POTASSIUM CHLORIDE 10MEQ SR TABLET PO SCH (20:24)
[2024-11-28] MEDS: LATANOPROST 0.005% OPHTH SOLN 2.5 ML OU SCH (20:25)
[2024-11-28] MEDS: PANTOPRAZOLE 40MG TAB PO SCH (20:25)
[2024-11-28] MEDS: TAMSULOSIN 0.4 MG CAP PO SCH (20:25)
[2024-11-28] MEDS: LIDOCAINE 5% PATCH TD SCH (20:26)
[2024-11-28] MEDS: DICLOFENAC EPOLAMINE 1.3% PATCH TOP SCH (20:26)
[2024-11-28 22:00] VITALS: BP 166/93; TEMP 96.8; O2SAT 96
[2024-11-29] VITALS (13 sets, daily range): BP systolic 146–165; BP diastolic 74–103; TEMP 97.3–97.9; O2SAT 95–98
[2024-11-29] MEDS ORDERED: PERCOCET 5MG/325MG TAB PO PRN ×2
[2024-11-29 00:33] LABS: CK-MB VALUE MASS 1.1 NG/ML (<3.6); CPK CREATINE PHOSPHOKINASE 144.0 U/L (46-171); MB/CK RELATIVE INDEX 0.76 (< OR =4)
[2024-11-29 07:39] LABS: ALT/SGPT 36.0 U/L (7.0-40); AST/SGOT 81.0 U/L (<34); CALCIUM LEVEL 9.3 MG/DL (8.3-10.6); CARBON DIOXIDE LEVEL 34.0 MMOL/L (20-31); CHLORIDE LEVEL 94.0 MMOL/L (98-107); CHOLESTEROL LEVEL 199.0 MG/DL (<200); CHOLESTEROL RISK RATIO 6.12 (<5); CREATININE FOR GFR 1.14 MG/DL (0.70-1.30); GLOMERULAR FILTRATION RATE 73.6 (>49); LDL CHOLESTEROL 123.5 MG/DL (<100); NON-HDL-C 166.5 MG/DL; POTASSIUM SERUM 3.6 MMOL/L (3.5-5.1); SODIUM LEVEL 139.0 MMOL/L (136-145); TRIGLYCERIDES LEVEL 215.0 MG/DL (<150)
[2024-11-29] MEDS: amLODIPine 10 MG TAB PO SCH (07:58)
[2024-11-29] MEDS: TORSEMIDE 100 MG TAB PO SCH (08:02)
[2024-11-29] MEDS: ISOSORBIDE DINITRATE 20 MG TAB PO SCH (12:34)
[2024-11-29] MEDS: PERCOCET 5MG/325MG TAB PO SCH (14:38)
[2024-11-30] VITALS (8 sets, daily range): BP systolic 136–165; BP diastolic 77–87; TEMP 97.7–97.9; O2SAT 94–97
[2024-11-30] MEDS ORDERED: BUPRENORPHINE/NALOXONE 2-0.5MG SUBLINGUAL TABLET(SUBOXONE) As Ordered ONE (03:32)
[2024-11-30] MEDS: BUPRENORPHINE/NALOXONE 2-0.5MG SUBLINGUAL TABLET(SUBOXONE) SL PRN (04:06)
[2024-11-30 06:42] LABS: ALT/SGPT 46.0 U/L (7.0-40); AST/SGOT 119.0 U/L (<34); CALCIUM LEVEL 9.3 MG/DL (8.3-10.6); CARBON DIOXIDE LEVEL 30.0 MMOL/L (20-31); CHLORIDE LEVEL 96.0 MMOL/L (98-107); CREATININE FOR GFR 1.02 MG/DL (0.70-1.30); GLOMERULAR FILTRATION RATE 84.1 (>49); POTASSIUM SERUM 4.0 MMOL/L (3.5-5.1); SODIUM LEVEL 138.0 MMOL/L (136-145)
[2024-11-30] MEDS: ACETAMINOPHEN 325 MG TAB PO PRN (15:50)
[2024-11-30] MEDS: CALCIUM CARBONATE 500 MG CHEW U/D PO PRN (20:32)
[2024-12-01] VITALS (7 sets, daily range): BP systolic 135–165; BP diastolic 80–94; TEMP 97.5–97.7; O2SAT 95–96
[2024-12-01 06:41] LABS: ALT/SGPT 41.0 U/L (7.0-40); AST/SGOT 87.0 U/L (<34); CALCIUM LEVEL 9.2 MG/DL (8.3-10.6); CARBON DIOXIDE LEVEL 32.0 MMOL/L (20-31); CHLORIDE LEVEL 97.0 MMOL/L (98-107); CREATININE FOR GFR 1.11 MG/DL (0.70-1.30); GLOMERULAR FILTRATION RATE 76.0 (>49); MAGNESIUM LEVEL 1.8 MG/DL (1.8-2.4); POTASSIUM SERUM 3.7 MMOL/L (3.5-5.1); SODIUM LEVEL 138.0 MMOL/L (136-145)
[2024-12-01] MEDS: MIRALAX *UNIT DOSE* 17 GM PACKET PO SCH (09:00)
[2024-12-01] MEDS: SENNA 8.6 MG TAB PO SCH (09:00)
[2024-12-01] MEDS ORDERED: ONDANSETRON 4MG ORAL DISINTEGRATING TAB PO PRN (15:05)
[2024-12-01] MEDS ORDERED: SALIVA SUBSTITUTE BTL MT PRN (15:05)
[2024-12-01] MEDS ORDERED: LIDOCAINE 2% 100 MG/5 ML SDV (FOR ANES.) As Ordered ONE (17:15)
[2024-12-02 05:46] VITALS: BP 136/86; TEMP 97.7; O2SAT 97
[2024-12-02 06:00] VITALS: BP 136/86
[2024-12-02 07:51] LABS: ALT/SGPT 47.0 U/L (7.0-40); AST/SGOT 106.0 U/L (<34); CALCIUM LEVEL 9.2 MG/DL (8.3-10.6); CARBON DIOXIDE LEVEL 30.0 MMOL/L (20-31); CHLORIDE LEVEL 100.0 MMOL/L (98-107); CREATININE FOR GFR 1.26 MG/DL (0.70-1.30); GLOMERULAR FILTRATION RATE 65.3 (>49); MAGNESIUM LEVEL 2.0 MG/DL (1.8-2.4); POTASSIUM SERUM 3.9 MMOL/L (3.5-5.1); SODIUM LEVEL 139.0 MMOL/L (136-145)
[2024-12-02] MEDS ORDERED: CELE20TA PO (11:27)
[2024-12-02] MEDS ORDERED: BUPR1SUB33 PO (11:27)
[2024-12-02] MEDS ORDERED: MIRA33506 PO (11:27)
[2024-12-02] MEDS ORDERED: AMLO1TAB25 PO (11:27)
[2024-12-02 11:53] VITALS: BP 122/85; TEMP 97.3; O2SAT 97
[2024-12-02 11:55] VITALS: BP 122/85
[2024-12-02] MEDS ORDERED: SUBO2MIS SL (14:07)
== END 2024-12-02 14:56 | disposition home or self-care (01) | DRG 378 ==
LOC: M ED 06:00 → M ED INP 13:53 → M MSPAV 14:43
PROVIDERS: ADMIT General Practice; ATTEND Student in an Organized Health Care Education/Training Program
PROC: 0DB68ZX Excision of Stomach, Via Natural or Artificial Opening Endoscopic, Diagnostic (ICD-10-PCS; principal; 2024-12-01 15:30)
DX: K92.2 Gastrointestinal hemorrhage, unspecified (principal); I50.32 Chronic diastolic (congestive) heart failure; Z68.41 Body mass index [BMI] 40.0-44.9, adult; E87.3 Alkalosis; F10.239 Alcohol dependence with withdrawal, unspecified; K76.6 Portal hypertension; I11.0 Hypertensive heart disease with heart failure; E66.813 Obesity, class 3; G47.33 Obstructive sleep apnea (adult) (pediatric); E78.5 Hyperlipidemia, unspecified; K76.0 Fatty (change of) liver, not elsewhere classified; K22.70 Barrett's esophagus without dysplasia; G89.29 Other chronic pain; M54.50 Low back pain, unspecified; Z66 Do not resuscitate; K58.9 Irritable bowel syndrome, unspecified; R73.03 Prediabetes; H91.93 Unspecified hearing loss, bilateral; F41.9 Anxiety disorder, unspecified; F32.9 Major depressive disorder, single episode, unspecified; N40.0 Benign prostatic hyperplasia without lower urinary tract symptoms; G62.1 Alcoholic polyneuropathy; M48.061 Spinal stenosis, lumbar region without neurogenic claudication; F11.10 Opioid abuse, uncomplicated; K31.89 Other diseases of stomach and duodenum; K29.20 Alcoholic gastritis without bleeding; D50.0 Iron deficiency anemia secondary to blood loss (chronic); Z97.4 Presence of external hearing-aid; Z79.899 Other long term (current) drug therapy; Z88.0 Allergy status to penicillin; Z88.8 Allergy status to other drugs, medicaments and biological substances

== ENCOUNTER → 2024-12-07 | Outpatient (CLI) | payer MEDICARE ==
[~2024-12-07] MED LIST changes: +BUPR1SUB33 PO; +CELE20TA PO; +MIRA33506 PO; +SUBO2MIS SL; +VENTAER INH
[2024-12-07 15:19] LABS: BASO # 0.1 10^3/uL (0.0-0.2); BASO % 1.0 % (0.0-1.0); EOS # 0.2 10^3/uL (0.0-0.5); EOS % 3.0 % (0.0-3.0); LYMPH # 0.8 10^3/uL (1.5-5.0); LYMPH % 13.5 % (24.0-44.0); MONO # 1.1 10^3/uL (0.0-0.8); MONO % 18.4 % (2.0-8.0); NEUTROPHILS # 3.9 10^3/uL (1.5-8.5); NEUTROPHILS % 63.8 % (36.0-66.0); PLATELET COUNT, AUTOMATED 176 10^3/uL (150-450)
[2024-12-07 15:48] LABS: ALT/SGPT 134.0 U/L (7.0-40); AST/SGOT 200.0 U/L (<34); CALCIUM LEVEL 9.3 MG/DL (8.3-10.6); CARBON DIOXIDE LEVEL 31.0 MMOL/L (20-31); CHLORIDE LEVEL 98.0 MMOL/L (98-107); CREATININE FOR GFR 1.08 MG/DL (0.70-1.30); GLOMERULAR FILTRATION RATE 78.6 (>49); IRON (FE) 50.0 UG/DL (65-175); MAGNESIUM LEVEL 2.1 MG/DL (1.8-2.4); PERCENT SATURATION 10.7 % (19.7-50.0); POTASSIUM SERUM 4.0 MMOL/L (3.5-5.1); SODIUM LEVEL 139.0 MMOL/L (136-145)
== END ==
LOC: M LAB 14:13
PROVIDERS: ATTEND Registered Nurse
DX: R51.9 Headache, unspecified (principal); R53.1 Weakness; K76.6 Portal hypertension

== ENCOUNTER 2024-12-19 10:03 | Outpatient (CLI) | payer MEDICARE ==
[~2024-12-19] VITALS: Ht 175.3 cm; Wt 121.8 kg
[~2024-12-19 10:03] MED LIST changes: +ALBUTEROL SULFATE 2.5 MG/0.5 ML INH CONCENTRATE NEB SOLN INH PRN; +EPINEPHrine INJ 1 MG/ML 1ML AMP IM PRN; +NS (Normal Saline) 0.9% 1,000 ML IV SCH; +diphenhydrAMINE 50 MG/ML VIAL IV PRN
[2024-12-19 10:15] VITALS: BP 158/77; O2SAT 97
[2024-12-19] MEDS: IRON SUCROSE 300 MG in NS 250 ML OVER 90 MIN. IV ONE (10:39)
== END 2024-12-19 12:20 | disposition home or self-care (01) ==
LOC: M INFU 10:03
PROVIDERS: ATTEND Internal Medicine Nephrology
DX: E61.1 Iron deficiency (principal); D63.1 Anemia in chronic kidney disease; Z88.0 Allergy status to penicillin; Z88.8 Allergy status to other drugs, medicaments and biological substances
CPT/HCPCS: 96365; 96366; J1756

== ENCOUNTER 2025-01-02 08:58 | Outpatient (CLI) | payer MEDICARE ==
[~2025-01-02] VITALS: Ht 175.3 cm; Wt 120.5 kg
[~2025-01-02 08:58] MED LIST changes: +ALBUTEROL SULFATE 2.5 MG/0.5 ML INH CONCENTRATE NEB SOLN INH PRN; +EPINEPHrine INJ 1 MG/ML 1ML AMP IM PRN; +diphenhydrAMINE 50 MG/ML VIAL IV PRN
[2025-01-02] MEDS ORDERED: NS (Normal Saline) 0.9% 1,000 ML IV SCH (09:00)
[2025-01-02 09:30] VITALS: BP 164/88; O2SAT 97
[2025-01-02] MEDS: IRON SUCROSE 300 MG in NS 250 ML OVER 90 MIN. IV ONE (10:00)
[2025-01-02 11:35] VITALS: BP 158/88; O2SAT 97
== END 2025-01-02 11:45 ==
LOC: M INFU 08:58
PROVIDERS: ATTEND Internal Medicine Nephrology
DX: E61.1 Iron deficiency (principal); N18.9 Chronic kidney disease, unspecified; D63.1 Anemia in chronic kidney disease; Z88.0 Allergy status to penicillin; Z88.8 Allergy status to other drugs, medicaments and biological substances; E29.1 Testicular hypofunction; Z12.5 Encounter for screening for malignant neoplasm of prostate
CPT/HCPCS: 36415; 80048; 84403; 85027; 96365; 96366; G0103; J1756

== ENCOUNTER → 2025-01-02 | Outpatient (CLI) | payer MEDICARE ==
[~2025-01-02] MED LIST changes: -ALBUTEROL SULFATE 2.5 MG/0.5 ML INH CONCENTRATE NEB SOLN INH PRN; -EPINEPHrine INJ 1 MG/ML 1ML AMP IM PRN; -NS (Normal Saline) 0.9% 1,000 ML IV SCH; -diphenhydrAMINE 50 MG/ML VIAL IV PRN
[2025-01-02 09:56] LABS: PLATELET COUNT, AUTOMATED 144 10^3/uL (150-450)
[2025-01-02 10:23] LABS: PSA SCREENING 0.55 NG/ML (< 4.00)
[2025-01-02 10:25] LABS: CALCIUM LEVEL 9.5 MG/DL (8.3-10.6); CARBON DIOXIDE LEVEL 32 MMOL/L (20-31); CHLORIDE LEVEL 96 MMOL/L (98-107); CREATININE FOR GFR 0.78 MG/DL (0.70-1.30); GLOMERULAR FILTRATION RATE > 90.0 (>49); POTASSIUM SERUM 3.9 MMOL/L (3.5-5.1); SODIUM LEVEL 136 MMOL/L (136-145)
[2025-01-02 10:27] LABS: TESTOSTERONE 283 NG/DL (241-827)
== END ==
LOC: M LAB 09:02
PROVIDERS: ATTEND Nurse Practitioner Family
DX: E29.1 Testicular hypofunction (principal)

== ENCOUNTER 2025-03-23 16:55 | Inpatient (IN) | payer MEDICARE ==
[~2025-03-23] VITALS: Ht 175.3 cm; Wt 124.8 kg
[~2025-03-23 16:55] MED LIST changes: -ALBUTEROL SULFATE 2.5 MG/0.5 ML INH CONCENTRATE NEB SOLN INH PRN; -EPINEPHrine INJ 1 MG/ML 1ML AMP IM PRN; -diphenhydrAMINE 50 MG/ML VIAL IV PRN
[2025-03-23 17:54] LABS: BASO # 0.0 10^3/uL (0.0-0.2); BASO % 0.9 % (0.0-1.0); EOS # 0.0 10^3/uL (0.0-0.5); EOS % 0.4 % (0.0-3.0); LYMPH # 0.6 10^3/uL (1.5-5.0); LYMPH % 13.9 % (24.0-44.0); MONO # 0.5 10^3/uL (0.0-0.8); MONO % 10.6 % (2.0-8.0); NEUTROPHILS # 3.3 10^3/uL (1.5-8.5); NEUTROPHILS % 73.1 % (36.0-66.0)
[2025-03-23 18:19] LABS: INR 1.17
[2025-03-23 18:20] LABS: ETHYL ALCOHOL (ETHANOL) 0.235 % (0.000-0.010)
[2025-03-23 18:22] LABS: PLATELET COUNT, AUTOMATED 89 10^3/uL (150-450)
[2025-03-23 18:43] LABS: ALT/SGPT 66 U/L (7.0-40); AST/SGOT 257 U/L (<34); CALCIUM LEVEL 8.1 MG/DL (8.3-10.6); CARBON DIOXIDE LEVEL 22 MMOL/L (20-31); CHLORIDE LEVEL 101 MMOL/L (98-107); CREATININE FOR GFR 0.67 MG/DL (0.70-1.30); GLOMERULAR FILTRATION RATE > 90.0 (>49); POTASSIUM SERUM 4.1 MMOL/L (3.5-5.1); SODIUM LEVEL 143 MMOL/L (136-145)
[2025-03-23] MEDS ORDERED: ISOVUE-370 76% 100 ML VIAL As Ordered ONE (19:04)
[2025-03-23 19:08] LABS: VITAMIN B12 LEVEL 448 PG/ML (211-911)
[2025-03-23] MEDS: THIAMINE 100 MG TAB PO SCH (20:33)
[2025-03-23] MEDS: PANTOPRAZOLE 40MG VIAL IV ONE (22:03)
[2025-03-23 23:31] VITALS: BP 181/84; TEMP 98.2; O2SAT 95
[2025-03-23] MEDS ORDERED: HOME MED LIST COMPLETE! XX SCH (23:40)
[2025-03-23 23:53] VITALS: BP 180/79
[2025-03-24] VITALS (11 sets, daily range): BP systolic 160–176; BP diastolic 68–90; TEMP 98.1–99.7; O2SAT 94–96
[2025-03-24] MEDS: ONDANSETRON 4MG/2ML VIAL IV PRN (00:08)
[2025-03-24] MEDS: PANTOPRAZOLE 40MG VIAL IV SCH (00:08)
[2025-03-24] MEDS: ACETAMINOPHEN 325 MG TAB PO PRN (00:08)
[2025-03-24] MEDS: chlordiazePOXIDE 25 MG CAP PO SCH (06:20)
[2025-03-24 06:23] LABS: PLATELET COUNT, AUTOMATED 57 10^3/uL (150-450)
[2025-03-24 06:53] LABS: CALCIUM LEVEL 8.3 MG/DL (8.3-10.6); CARBON DIOXIDE LEVEL 25 MMOL/L (20-31); CHLORIDE LEVEL 97 MMOL/L (98-107); CREATININE FOR GFR 0.70 MG/DL (0.70-1.30); GLOMERULAR FILTRATION RATE > 90.0 (>49); MAGNESIUM LEVEL 1.3 MG/DL (1.8-2.4); POTASSIUM SERUM 3.6 MMOL/L (3.5-5.1); SODIUM LEVEL 139 MMOL/L (136-145)
[2025-03-24 08:22] LABS: ALT/SGPT 63 U/L (7.0-40); AST/SGOT 240 U/L (<34)
[2025-03-24] MEDS: MULTIVITAMINS/MINERALS THERAP 1 TAB PO SCH (08:28)
[2025-03-24] MEDS: FOLIC ACID 1 MG TAB PO SCH (08:29)
[2025-03-24] MEDS: THIAMINE 100 MG TAB PO SCH (08:29)
[2025-03-24] MEDS: MAGNESIUM OXIDE 400 MG TAB PO SCH (08:29)
[2025-03-24] MEDS: MAG SULF 1GM/100ML (MAG RUN) 1 GM in IV 1 EA IV SCH (08:30)
[2025-03-24] MEDS ORDERED: MULTIVITAMINS/MINERALS THERAP 1 TAB PO SCH (09:00)
[2025-03-24] MEDS ORDERED: FOLIC ACID 1 MG TAB PO SCH (09:00)
[2025-03-24] MEDS: SUCRALFATE 1 GM TAB PO SCH (12:49)
[2025-03-24] MEDS ORDERED: KETOROLAC 30 MG/ML 1 ML VIAL IV ONE (15:55)
[2025-03-24] MEDS: ACETAMINOPHEN *IV* 1,000 MG in IV 1 EA IV ONE (16:09)
[2025-03-24] MEDS: LR 500 ML IV ONE (16:09)
[2025-03-24] MEDS: LR 1,000 ML IV SCH (17:07)
[2025-03-25] VITALS (13 sets, daily range): BP systolic 158–184; BP diastolic 81–95; TEMP 98.2–99.8; O2SAT 95–97
[2025-03-25] MEDS: MIRALAX *UNIT DOSE* 17 GM PACKET PO PRN (01:05)
[2025-03-25] MEDS: POLYVINYL ALCOHOL OPHTH SOLN 15ML (LIQUITEARS) OU PRN (04:59)
[2025-03-25] MEDS: chlordiazePOXIDE 25 MG CAP PO SCH (05:26)
[2025-03-25 08:58] LABS: BASO # 0.0 10^3/uL (0.0-0.2); BASO % 0.4 % (0.0-1.0); EOS # 0.1 10^3/uL (0.0-0.5); EOS % 3.1 % (0.0-3.0); LYMPH # 0.4 10^3/uL (1.5-5.0); LYMPH % 16.2 % (24.0-44.0); MONO # 0.2 10^3/uL (0.0-0.8); MONO % 9.2 % (2.0-8.0); NEUTROPHILS # 1.6 10^3/uL (1.5-8.5); NEUTROPHILS % 70.7 % (36.0-66.0)
[2025-03-25 09:01] LABS: PLATELET COUNT, AUTOMATED 40 10^3/uL (150-450)
[2025-03-25 09:22] LABS: ALT/SGPT 58 U/L (7.0-40); AST/SGOT 231 U/L (<34); CALCIUM LEVEL 8.6 MG/DL (8.3-10.6); CARBON DIOXIDE LEVEL 27 MMOL/L (20-31); CHLORIDE LEVEL 99 MMOL/L (98-107); CREATININE FOR GFR 0.63 MG/DL (0.70-1.30); GLOMERULAR FILTRATION RATE > 90.0 (>49); MAGNESIUM LEVEL 1.6 MG/DL (1.8-2.4); POTASSIUM SERUM 3.4 MMOL/L (3.5-5.1); SODIUM LEVEL 138 MMOL/L (136-145)
[2025-03-25] MEDS: THIAMINE 200MG 2ML VIAL IV SCH (09:56)
[2025-03-25] MEDS: LATANOPROST 0.005% OPHTH SOLN 2.5 ML OU SCH (10:30)
[2025-03-25] MEDS: FLUZONE VACCINE TRI PF(25-26) 0.5ML SYRINGE IM.IMMUN ONE (11:21)
[2025-03-25] MEDS: POTASSIUM CHLORIDE 10MEQ SR TABLET PO ONE (20:22)
[2025-03-25] MEDS: TORSEMIDE 100 MG TAB PO ONE (23:36)
[2025-03-25] MEDS: amLODIPine 10 MG TAB PO ONE (23:37)
[2025-03-25] MEDS: FENOFIBRATE 145 MG TABLET PO SCH (23:37)
[2025-03-26] VITALS (11 sets, daily range): BP systolic 112–156; BP diastolic 63–90; TEMP 98.3–98.9; O2SAT 94–98
[2025-03-26 06:44] LABS: ALT/SGPT 63 U/L (7.0-40); AST/SGOT 228 U/L (<34); CALCIUM LEVEL 9.2 MG/DL (8.3-10.6); CARBON DIOXIDE LEVEL 32 MMOL/L (20-31); CHLORIDE LEVEL 94 MMOL/L (98-107); CREATININE FOR GFR 0.73 MG/DL (0.70-1.30); GLOMERULAR FILTRATION RATE > 90.0 (>49); POTASSIUM SERUM 3.2 MMOL/L (3.5-5.1); SODIUM LEVEL 138 MMOL/L (136-145)
[2025-03-26 06:50] LABS: PLATELET COUNT, AUTOMATED 38 10^3/uL (150-450)
[2025-03-26] MEDS ORDERED: ALBUTEROL 90 MCG/ACT 8 GM HFA INHALER INH PRN (08:25)
[2025-03-26] MEDS: chlordiazePOXIDE 25 MG CAP PO SCH (09:38)
[2025-03-26] MEDS: TORSEMIDE 100 MG TAB PO SCH (09:39)
[2025-03-26] MEDS: POTASSIUM CHLORIDE 10MEQ SR TABLET PO SCH (09:40)
[2025-03-26] MEDS: amLODIPine 10 MG TAB PO SCH (09:40)
[2025-03-26] MEDS: LACTULOSE 20 GM/30 ML SYRUP UDC PO SCH (14:00)
[2025-03-26] MEDS: PRAVASTATIN 20 MG TAB PO SCH (20:06)
[2025-03-27] VITALS (7 sets, daily range): BP systolic 100–152; BP diastolic 59–85; TEMP 97.8–98.3; O2SAT 92–94
[2025-03-27 06:40] LABS: PLATELET COUNT, AUTOMATED 51 10^3/uL (150-450)
[2025-03-27 07:06] LABS: ALT/SGPT 63 U/L (7.0-40); AST/SGOT 203 U/L (<34); CALCIUM LEVEL 9.1 MG/DL (8.3-10.6); CARBON DIOXIDE LEVEL 36 MMOL/L (20-31); CHLORIDE LEVEL 92 MMOL/L (98-107); CREATININE FOR GFR 0.85 MG/DL (0.70-1.30); GLOMERULAR FILTRATION RATE > 90.0 (>49); POTASSIUM SERUM 2.6 MMOL/L (3.5-5.1); SODIUM LEVEL 140 MMOL/L (136-145)
[2025-03-27 07:49] LABS: MAGNESIUM LEVEL 1.2 MG/DL (1.8-2.4); PHOSPHORUS LEVEL 3.6 MG/DL (2.4-5.1)
[2025-03-27] MEDS: MAG SULF 1GM/100ML (MAG RUN) 1 GM in IV 1 EA IV SCH (08:42)
[2025-03-27] MEDS: NADOLOL 20MG TABLET PO SCH (08:48)
[2025-03-27] MEDS: ACETAMINOPHEN 325 MG TAB PO PRN (09:02)
[2025-03-27] MEDS: KCL 10MEQ/100ML SWI (KRUN) 10 MEQ in IV 1 EA IV SCH (09:19)
[2025-03-27] MEDS: POTASSIUM CHLORIDE 10MEQ SR TABLET PO ONE (12:33)
[2025-03-27] MEDS ORDERED: MAGNESIUM OXIDE 400 MG TAB PO SCH (16:00)
[2025-03-27 16:42] LABS: CALCIUM LEVEL 9.1 MG/DL (8.3-10.6); CARBON DIOXIDE LEVEL 37.0 MMOL/L (20-31); CHLORIDE LEVEL 94.0 MMOL/L (98-107); CREATININE FOR GFR 0.97 MG/DL (0.70-1.30); GLOMERULAR FILTRATION RATE 89.4 (>49); POTASSIUM SERUM 3.8 MMOL/L (3.5-5.1); SODIUM LEVEL 139.0 MMOL/L (136-145)
[2025-03-27] MEDS ORDERED: POTASSIUM CHLORIDE 10MEQ SR TABLET PO ONE (21:00)
[2025-03-27] MEDS: chlordiazePOXIDE 25 MG CAP PO ONE (21:19)
[2025-03-27] MEDS: MAGNESIUM GLUCONATE 500 MG TAB PO SCH (21:20)
[2025-03-28 04:58] VITALS: BP 124/58; TEMP 98.2; O2SAT 95
[2025-03-28 06:00] VITALS: BP 124/68
[2025-03-28 06:27] LABS: PLATELET COUNT, AUTOMATED 87 10^3/uL (150-450)
[2025-03-28 06:45] LABS: ALT/SGPT 69.0 U/L (7.0-40); AST/SGOT 199.0 U/L (<34); CALCIUM LEVEL 9.6 MG/DL (8.3-10.6); CARBON DIOXIDE LEVEL 34.0 MMOL/L (20-31); CHLORIDE LEVEL 92.0 MMOL/L (98-107); CREATININE FOR GFR 1.25 MG/DL (0.70-1.30); GLOMERULAR FILTRATION RATE 65.9 (>49); POTASSIUM SERUM 3.5 MMOL/L (3.5-5.1); SODIUM LEVEL 136.0 MMOL/L (136-145)
[2025-03-28] MEDS: LACTULOSE 20 GM/30 ML SYRUP UDC PO PRN (10:18)
[2025-03-28 11:22] LABS: INR 1.09
[2025-03-28 12:00] VITALS: BP 118/53; TEMP 98.2; O2SAT 95
[2025-03-28 13:39] LABS: MAGNESIUM LEVEL 1.6 MG/DL (1.8-2.4)
[2025-03-28 20:08] VITALS: BP 124/71; TEMP 98.9; O2SAT 98
[2025-03-29 04:41] VITALS: BP 142/79; TEMP 98.7; O2SAT 94
[2025-03-29 07:04] LABS: PLATELET COUNT, AUTOMATED 100 10^3/uL (150-450)
[2025-03-29 07:18] LABS: ALT/SGPT 67.0 U/L (7.0-40); AST/SGOT 171.0 U/L (<34); CALCIUM LEVEL 9.6 MG/DL (8.3-10.6); CARBON DIOXIDE LEVEL 32.0 MMOL/L (20-31); CHLORIDE LEVEL 92.0 MMOL/L (98-107); CREATININE FOR GFR 1.27 MG/DL (0.70-1.30); GLOMERULAR FILTRATION RATE 64.7 (>49); POTASSIUM SERUM 3.6 MMOL/L (3.5-5.1); SODIUM LEVEL 135.0 MMOL/L (136-145)
[2025-03-29] MEDS: PANTOPRAZOLE 40MG TAB PO SCH (08:09)
[2025-03-29 08:14] LABS: MAGNESIUM LEVEL 1.4 MG/DL (1.8-2.4); PHOSPHORUS LEVEL 1.7 MG/DL (2.4-5.1)
[2025-03-29] MEDS: MAG SULF 1GM/100ML (MAG RUN) 1 GM in IV 1 EA IV SCH (09:57)
[2025-03-29 11:36] LABS: C REACTIVE PROTEIN QUANTITATIV 2.35 MG/DL (<1.0)
[2025-03-29] MEDS: POTASSIUM PHOSPHATE INJ 30 MMOL in D5W 500 ML IV ONE (11:37)
[2025-03-29 12:11] VITALS: BP 148/83; TEMP 98.1; O2SAT 95
[2025-03-29] MEDS: MAGNESIUM GLUCONATE 500 MG TAB PO SCH (16:10)
[2025-03-29] MEDS ORDERED: TORSEMIDE 20 MG TAB PO SCH (17:00)
[2025-03-29 20:10] VITALS: BP 145/74; TEMP 98.5; O2SAT 98
[2025-03-30 04:53] VITALS: BP 132/84; TEMP 98.3; O2SAT 98
[2025-03-30 06:30] LABS: PLATELET COUNT, AUTOMATED 151 10^3/uL (150-450)
[2025-03-30 07:02] LABS: ALT/SGPT 69.0 U/L (7.0-40); AST/SGOT 166.0 U/L (<34); CALCIUM LEVEL 8.9 MG/DL (8.3-10.6); CARBON DIOXIDE LEVEL 32.0 MMOL/L (20-31); CHLORIDE LEVEL 95.0 MMOL/L (98-107); CREATININE FOR GFR 1.32 MG/DL (0.70-1.30); GLOMERULAR FILTRATION RATE 61.8 (>49); MAGNESIUM LEVEL 1.7 MG/DL (1.8-2.4); PHOSPHORUS LEVEL 2.8 MG/DL (2.4-5.1); POTASSIUM SERUM 3.5 MMOL/L (3.5-5.1); SODIUM LEVEL 138.0 MMOL/L (136-145)
[2025-03-30 07:53] LABS: IRON (FE) 33.0 UG/DL (65-175); PERCENT SATURATION 9.0 % (19.7-50.0)
[2025-03-30] MEDS: NEUTRA-PHOS 1.5 GM PACKET PO SCH (09:34)
[2025-03-30 12:13] VITALS: BP 113/64; TEMP 98.4; O2SAT 97
[2025-03-30] MEDS: LACTULOSE 20 GM/30 ML SYRUP UDC PO SCH (14:24)
[2025-03-30] MEDS: FERRIC CARBOXYMALTOSE INJ 750 MG, VIAL MATE ADAPTER 1 EACH in NS 100 ML IV ONE (14:25)
[2025-03-30 14:47] VITALS: BP 99/55
[2025-03-30 15:32] VITALS: BP 123/69
[2025-03-30 16:00] VITALS: BP 121/73; TEMP 98.9; O2SAT 97
[2025-03-30] MEDS: diphenhydrAMINE 50 MG/ML VIAL IV STA (16:28)
[2025-03-30 20:20] VITALS: BP 126/69; TEMP 98.2; O2SAT 95
[2025-03-31 06:06] VITALS: BP 121/76; TEMP 97.4; O2SAT 95
[2025-03-31 06:26] LABS: PLATELET COUNT, AUTOMATED 152 10^3/uL (150-450)
[2025-03-31 06:49] LABS: ALT/SGPT 65.0 U/L (7.0-40); AST/SGOT 155.0 U/L (<34); CALCIUM LEVEL 9.1 MG/DL (8.3-10.6); CARBON DIOXIDE LEVEL 32.0 MMOL/L (20-31); CHLORIDE LEVEL 96.0 MMOL/L (98-107); CREATININE FOR GFR 1.16 MG/DL (0.70-1.30); GLOMERULAR FILTRATION RATE 72.1 (>49); POTASSIUM SERUM 3.4 MMOL/L (3.5-5.1); SODIUM LEVEL 138.0 MMOL/L (136-145)
[2025-03-31 08:37] LABS: MAGNESIUM LEVEL 1.8 MG/DL (1.8-2.4)
[2025-03-31] MEDS: LACTULOSE 20 GM/30 ML SYRUP UDC PO SCH (10:45)
[2025-03-31 13:20] VITALS: BP 138/72; TEMP 98.6; O2SAT 96
[2025-03-31 18:27] LABS: PLATELET COUNT, AUTOMATED 202 10^3/uL (150-450)
[2025-03-31 20:25] VITALS: BP 155/75; TEMP 98.1; O2SAT 100
[2025-03-31] MEDS: MECLIZINE 12.5 MG TAB PO PRN (22:46)
[2025-04-01 01:17] LABS: PLATELET COUNT, AUTOMATED 183 10^3/uL (150-450)
[2025-04-01 03:26] VITALS: BP 148/75; TEMP 98.3; O2SAT 95
[2025-04-01 05:54] LABS: PLATELET COUNT, AUTOMATED 189 10^3/uL (150-450)
[2025-04-01 06:25] LABS: ALT/SGPT 72 U/L (7.0-40); AST/SGOT 170 U/L (<34); CALCIUM LEVEL 9.4 MG/DL (8.3-10.6); CARBON DIOXIDE LEVEL 28 MMOL/L (20-31); CHLORIDE LEVEL 98 MMOL/L (98-107); CREATININE FOR GFR 0.95 MG/DL (0.70-1.30); GLOMERULAR FILTRATION RATE > 90.0 (>49); POTASSIUM SERUM 4.0 MMOL/L (3.5-5.1); SODIUM LEVEL 137 MMOL/L (136-145)
[2025-04-01] MEDS: NADOLOL 20MG TABLET PO SCH (08:56)
[2025-04-01 10:00] LABS: PLATELET COUNT, AUTOMATED 200 10^3/uL (150-450)
[2025-04-01 12:00] VITALS: BP 107/63; TEMP 97.6; O2SAT 98
[2025-04-01 20:00] VITALS: BP 146/66; TEMP 98.7; O2SAT 97
[2025-04-02 04:00] VITALS: BP 136/65; TEMP 98; O2SAT 96
[2025-04-02 06:56] LABS: PLATELET COUNT, AUTOMATED 251 10^3/uL (150-450)
[2025-04-02 07:19] LABS: ALT/SGPT 79 U/L (7.0-40); AST/SGOT 177 U/L (<34); CALCIUM LEVEL 9.4 MG/DL (8.3-10.6); CARBON DIOXIDE LEVEL 27 MMOL/L (20-31); CHLORIDE LEVEL 101 MMOL/L (98-107); CREATININE FOR GFR 0.95 MG/DL (0.70-1.30); GLOMERULAR FILTRATION RATE > 90.0 (>49); POTASSIUM SERUM 4.2 MMOL/L (3.5-5.1); SODIUM LEVEL 137 MMOL/L (136-145)
[2025-04-02 08:55] VITALS: BP 122/58
[2025-04-02] MEDS ORDERED: TORS100T PO (12:33)
[2025-04-02] MEDS ORDERED: LACT20EL PO (12:33)
[2025-04-02] MEDS ORDERED: MECL-136 PO (12:33)
[2025-04-02] MEDS ORDERED: NADO40TA40 PO (12:33)
[2025-04-02] MEDS ORDERED: EPLE50TA12 PO (13:44)
[2025-04-02] MEDS ORDERED: CELE20TA PO (13:44)
[2025-04-02] MEDS ORDERED: VENTAER INH (13:44)
[2025-04-02] MEDS ORDERED: FOLI1TAB11 PO (13:44)
[2025-04-02] MEDS ORDERED: XALA0.007 OU (13:44)
[2025-04-02] MEDS ORDERED: TEST200I14 IM (13:44)
[2025-04-02] MEDS ORDERED: MAGN400T35 PO (13:44)
[2025-04-02] MEDS ORDERED: PANT40TA29 PO (13:44)
[2025-04-02] MEDS ORDERED: AMLO1TAB25 PO (13:44)
[2025-04-02] MEDS ORDERED: PRAV20TA78 PO (13:44)
[2025-04-02] MEDS ORDERED: FENO145T7 PO (13:44)
[2025-04-02] MEDS ORDERED: POTA-298 PO (13:44)
[2025-04-02] MEDS ORDERED: CHOL125C6 PO (13:44)
== END 2025-04-02 16:45 | disposition home health service (06) | DRG 896 ==
LOC: M ED 16:55 → M ED INP 21:58 → M MSPAV 23:29
PROVIDERS: ADMIT Student in an Organized Health Care Education/Training Program; ATTEND Student in an Organized Health Care Education/Training Program
PROC: B246ZZZ Ultrasonography of Right and Left Heart (ICD-10-PCS; principal; 2025-03-30)
DX: F10.239 Alcohol dependence with withdrawal, unspecified (principal); K57.91 Diverticulosis of intestine, part unspecified, without perforation or abscess with bleeding; I50.32 Chronic diastolic (congestive) heart failure; E72.20 Disorder of urea cycle metabolism, unspecified; N17.9 Acute kidney failure, unspecified; E87.3 Alkalosis; K76.6 Portal hypertension; Z68.41 Body mass index [BMI] 40.0-44.9, adult; I11.0 Hypertensive heart disease with heart failure; E66.813 Obesity, class 3; G47.33 Obstructive sleep apnea (adult) (pediatric); E78.5 Hyperlipidemia, unspecified; J45.909 Unspecified asthma, uncomplicated; E88.89 Other specified metabolic disorders; K22.70 Barrett's esophagus without dysplasia; M54.50 Low back pain, unspecified; G89.29 Other chronic pain; K58.9 Irritable bowel syndrome, unspecified; R73.03 Prediabetes; N40.0 Benign prostatic hyperplasia without lower urinary tract symptoms; F39 Unspecified mood [affective] disorder; Z66 Do not resuscitate; Z79.899 Other long term (current) drug therapy; Z88.0 Allergy status to penicillin; Z88.8 Allergy status to other drugs, medicaments and biological substances; F17.200 Nicotine dependence, unspecified, uncomplicated; R29.6 Repeated falls; E87.6 Hypokalemia; E83.42 Hypomagnesemia; K76.82 Hepatic encephalopathy; E83.39 Other disorders of phosphorus metabolism; M48.061 Spinal stenosis, lumbar region without neurogenic claudication; D50.9 Iron deficiency anemia, unspecified; K76.0 Fatty (change of) liver, not elsewhere classified; K70.30 Alcoholic cirrhosis of liver without ascites